=== PATIENT | female | born 1960 | race Caucasian/White ===

== ENCOUNTER → 2018-03-02 12:14 | Outpatient (CLI) | payer BC, SELFPAY ==
[2018-03-02 14:15] LABS: Hematocrit 40.3 % (37-47); Mean Corp Hgb Conc 34.7 g/gl (32-36); Mean Corpuscular Hgb 33.3 pg (27.0-32.0); Mean Corpuscular Volume 95.7 fL (81-99); Mean Platelet Vol. 10.3 fl (6.2-12.0); Platelet Count 218 K/mm3 (150-450); RBC Distribution Width CV 12.8 % (11.6-14.6); RBC Distribution Width SD 43.6 fl (35.1-43.9); Red Blood Count 4.21 M/mm3 (4.2-5.4); White Blood Count 4.9 K/mm3 (4.4-11.0)
[2018-03-02 14:19] LABS: Scan Indicated on CBC? Y/N NO
[2018-03-02 14:44] LABS: ALB/GLOB Ratio 1.1 RATIO (0.9-2.4); AST(SGOT) 23 U/L (15-37); Alanine Aminotransfer ALT/SGPT 23 U/L (13-56); Albumin, Serum 3.9 g/dL (3.2-5.0); Alkaline Phosphatase 89 U/L (45-117); Anion Gap 10 (5-15); BUN 10 mg/dL (7-18); BUN/Creat Ratio 11.1 RATIO (10-20); Calcium,Total 8.6 mg/dL (8.5-10.1); Chloride 108 mmol/L (98-107); EST Glomerular Filtration Rate 69 mL/min (>60); Est Glom Filt Rate - Afr Amer 83 mL/min (>60); Globulin 3.7 g/dL (2.2-4.2); Glucose 101 mg/dL (74-106); Luteinizing Hormone 25.6 mIU/mL; Potassium 3.1 mmol/L (3.5-5.1); Protein, Total 7.6 g/dL (6.4-8.2); Sodium Level 142 mmol/L (136-145); Thyroid Stim Hormone (TSH) 1.09 uIU/mL (0.358-3.74)
[2018-03-03 08:50] LABS: Vitamin B12 1747 pg/mL (211-911); Vitamin D,25 Hydroxy 45.3 ng/mL (29.95-100.01)
== END ==
PROVIDERS: Family Provider Family Medicine; PCP Family Medicine; Visit Provider Family Medicine
DX: G47.10 Hypersomnia, unspecified (principal)
CPT/HCPCS: 36415; 80053; 82306; 82607; 83001; 83002; 84443; 85027

== ENCOUNTER → 2018-03-23 14:11 | Outpatient (CLI) | payer BC, SELFPAY ==
[2018-03-23 15:59] LABS: Potassium 4.2 mmol/L (3.5-5.1)
== END ==
PROVIDERS: Family Provider Family Medicine; PCP Family Medicine; Visit Provider Family Medicine
DX: E87.6 Hypokalemia (principal)
CPT/HCPCS: 36415; 84132

== ENCOUNTER → 2018-07-06 11:44 | Outpatient (CLI) | payer BC, SELFPAY ==
[2018-07-06 14:09] LABS: Anion Gap 8 (5-15); BUN 15 mg/dL (7-18); BUN/Creat Ratio 15.8 RATIO (10-20); Calcium,Total 8.9 mg/dL (8.5-10.1); Chloride 103 mmol/L (98-107); Creatinine, Serum 0.95 mg/dL (0.55-1.02); EST Glomerular Filtration Rate 65 mL/min (>60); Est Glom Filt Rate - Afr Amer 78 mL/min (>60); Glucose 88 mg/dL (74-106); Potassium 4.4 mmol/L (3.5-5.1); Sodium Level 142 mmol/L (136-145)
== END ==
PROVIDERS: Family Provider Family Medicine; PCP Family Medicine; Visit Provider Family Medicine
DX: I10 Essential (primary) hypertension (principal)
CPT/HCPCS: 36415; 80048

== ENCOUNTER → 2019-03-07 | Outpatient (CLI) | payer BC, SELFPAY ==
--- NOTE | 2019-03-07 14:27 | RAD_ITS ---
STUDY: X-RAY - LUMBAR SPINE REASON FOR EXAM: Female, 58 years old. Back pain into the left leg TECHNIQUE: 5 view(s) of the lumbar spine were obtained. COMPARISON: FINDINGS: Normal lumbar lordosis. There is no substantial scoliosis. There is a normal alignment of the vertebrae. There is diffuse demineralization with multi-level endplate spondylosis. There is multi-level degenerative disc disease with multi-level disc space narrowing at L1-2 level, L5-S1 level. There is minimal posterior spurring L4-5, L5-S1, facet arthropathy and neural foraminal narrowing L4-5. There is atherosclerotic calcification of the abdominal aorta without a demonstrated aneurysm. RAD/L/S Spine Min 4 Views IMPRESSION: Degenerative changes, osteopenia, neuroforamina narrowing L4-5, arterial sclerosis and facet arthropathy not significantly changed. Electronically Signed: Sally Davies MD at 4:50 EDT , Service support ,
== END | disposition home or self-care (01) ==
LOC: MTLAB 14:23
PROVIDERS: Family Provider Family Medicine; PCP Family Medicine; Referring Provider Family Medicine; Visit Provider Family Medicine
DX: M54.5 Low back pain (principal)
CPT/HCPCS: 72110

== ENCOUNTER → 2019-03-22 | Outpatient (CLI) | payer BC, SELFPAY ==
--- NOTE | 2019-03-22 09:49 | RDU_ITS ---
Reason For Study: HTN Right Renal Artery Left Renal Artery Right renal artery ostium Left renal artery ostium 125.5/31.2 124.6/25.9 RSV/EDV. PSV/EDV. Right renal artery proximal Left renal artery proximal PSV/EDV 112.4/29.0 PSV/EDV. 140.6/45.5 . Right renal artery mid 130.0/33.4 Left renal artery mid 136.5/42.1 PSV/EDV. PSV/EDV . Right renal artery distal Left renal artery distal 114.4/26.7 105.7/33.3 PSV/EDV. PSV/EDV. Right RAR 1.4. Left RAR 1.5. Right Renal Parenchyma Left Renal Parenchyma Upper Pole Medula 38.6/14.5 Left upper pole medulla 34.2/11.2 PSV/EDV. PSV/EDV . Right upper pole medulla EDR .38 . Left upper pole medulla EDR .33 . Right upper pole medulla R.I. .62 . Left upper pole medulla R.I. .67 . Upper Baldo Cortx 25.4/9.0 PSV/EDV. UP Cortex 30.9/12.3 PSV/EDV. Right upper pole cortex EDR .35 . Left upper pole cortex EDR .4 . Right upper pole cortex R.I. .65 . Left upper pole cortex R.I. .6 . Right lower Pole medulla 41.9/14.5 Left lower Pole medulla 37.5/13.4 PSV/EDV . PSV/EDV . Right lower pole medulla EDR .35 . Left lower pole medulla EDR .36 . Right lower pole medulla R.I. .65 . Left lower pole medulla R.I. .64 . Lower Pole Cortex 26.5/9.0 PSV/EDV. Lower Pole Cortx 35.3/10.1 PSV/EDV. Right lower pole cortex EDR .34 . Left lower pole cortex EDR .29 . Right lower pole cortex R.I. .66 . Left lower pole cortex R.I. .71 . Right Renal Hilar Left Renal Hilar Right hilar acceleration time 40 Left hilar acceleration time 60 m/sec. m/sec. Right Hilar avg 51.7/14.5 PSV/EDV. LT Hilar avg 45.2/17.8 PSV/EDV . Right Renal Dimensions Left Renal Dimensions Right kidney size 10.9 cm . Left kidney size 10.4 cm . Right cortical dimension 1.65 cm . Left cortical dimension 1.74 cm . Aorta Proximal abdominal aorta 2.37 x 2.16 cm . Proximal abdominal aorta peak systolic velocity is 93.5 cm/sec . Distal abdominal aorta 1.55 x 1.48 cm . Distal abdominal aorta peak systolic velocity is 111.8 cm/sec . Normal renal veins bilat. Interpretation Summary Dimensions of the intra-abdominal aorta appear normal, without evidence of aneurysmal dilatation. Renal artery velocities are bilaterally normal. Acceleration times are normal bilaterally. Renal- aortic ratios are also bilaterally normal. There is no evidence of hemodynamically significant renal artery stenosis on either side. Renovascular resistance appears to be bilaterally normal . The right cortical dimension is increased. The left cortical dimension is increased. Kidneys appear normal in size bilaterally. Ordering Physician: Juan Luis Cheung Performed By: Kelvin Mosqueda RVT
== END | disposition home or self-care (01) ==
PROVIDERS: Family Provider Family Medicine; PCP Family Medicine; Referring Provider Family Medicine; Visit Provider Family Medicine
DX: I10 Essential (primary) hypertension (principal)
CPT/HCPCS: 93975

== ENCOUNTER → 2019-06-11 | Outpatient (CLI) | payer BC, SELFPAY ==
[2019-06-11 13:56] LABS: Absolute Lymphocyte Count 1.57 X10^3/uL (0.83-4.51); Absolute Neutrophil Count 2.2 X10^3/uL (2.0-7.7); Basophil# 0.02 X10^3/uL; Basophil% 0.4 % (0-1); Eosinophil# 0.24 X10^3/uL; Eosinophils% 5.3 % (0-5); Hematocrit 41.3 % (37-47); Hemoglobin 14.7 g/dL (12.0-15.0); Lymphocyte # 1.57 X10^3/ul (4.0); Lymphocyte % 34.9 % (19-41); Mean Corp Hgb Conc 35.6 g/dL (32-36); Mean Corpuscular Hgb 33.8 pg (27.0-32.0); Mean Corpuscular Volume 94.9 fL (81-99); Mean Platelet Vol. 10.3 fl (6.2-12.0); Monocyte# 0.42 X10^3/uL; Monocyte% 9.3 % (0-10); NRBC Flagged by Analyzer 0 % (0-5); Neutrophil # 2.24 X10^3/uL (2.7-7.7); Neutrophil % 49.9 % (47-70); Platelet Count 256 K/mm3 (150-450); RBC Distribution Width CV 12.6 % (11.6-14.6); RBC Distribution Width SD 43.9 fl (35.1-43.9); Red Blood Count 4.35 M/mm3 (4.2-5.4); White Blood Count 4.5 K/mm3 (4.4-11.0)
[2019-06-11 14:04] LABS: Erythrocyte Sedimentation Rate 6 mm/hr (0-30)
[2019-06-11 14:18] LABS: Vitamin B12 969 pg/mL (211-911)
[2019-06-11 14:24] LABS: AST(SGOT) 19 U/L (15-37); Alanine Aminotransfer ALT/SGPT 24 U/L (13-56); Albumin, Serum 3.7 g/dL (3.2-5.0); Alkaline Phosphatase 86 U/L (45-117); Anion Gap 7 (5-15); BUN 15 mg/dL (7-18); Calcium,Total 8.6 mg/dL (8.5-10.1); Chloride 106 mmol/L (98-107); Creatinine, Serum 0.83 mg/dL (0.55-1.02); EST Glomerular Filtration Rate 75 mL/min (>60); Est Glom Filt Rate - Afr Amer 90 mL/min (>60); Globulin 3.8 g/dL (2.2-4.2); Glucose 90 mg/dL (74-106); Iron 147 ug/dL (50-170); Potassium 3.5 mmol/L (3.5-5.1); Protein, Total 7.5 g/dL (6.4-8.2); Sodium Level 143 mmol/L (136-145); Thyroid Stim Hormone (TSH) 1.99 uIU/mL (0.358-3.74)
== END | disposition home or self-care (01) ==
LOC: MFPLAB 11:57
PROVIDERS: Family Provider Family Medicine; PCP Family Medicine; Visit Provider Family Medicine
DX: R53.83 Other fatigue (principal)
CPT/HCPCS: 36415; 80053; 82306; 82607; 83540; 84443; 85025; 85652

== ENCOUNTER → 2020-06-16 15:55 | Outpatient (CLI) | payer OTHER, SELFPAY ==
--- NOTE | 2020-06-16 16:03 | VDLE_ITS ---
Reason For Study: Contusion RIGHT LEFT CFV is compressible, spontaneous, phasic, GSV is normal. competent and demonstrates normal CFV is compressible, spontaneous, phasic, augmentation. competent, and demonstrates normal Procedure augmentation. Exam performed in department. FV is compressible, spontaneous, phasic, A preliminary report was called and/or faxed competent and demonstrates normal to Chet. Send Pt to ED for treatment. augmentation. POP V is compressible, spontaneous, phasic, competent and demonstrates normal augmentation. T/P Trunk is compressible. PTV is compressible. LT PerV is compressible. Acute deep vein thrombosis is noted in the left soleus vein. Interpretation Summary Acute deep vein thrombosis is noted in the left soleus vein. The remainder of the left lower extremity deep venous system is patent and compressible. Valvular competence appears intact within the proximal deep venous system on the left . The left great saphenous vein appears patent and compressible segmentally. Ordering Physician: Justin Rosenberg Referring Physician: Juan Luis Cheung MD Performed By: Kelsey Mas RVT and Student
== END ==
PROVIDERS: PCP Family Medicine; Referring Provider Family Medicine; Visit Provider Family Medicine
DX: S80.11XA Contusion of right lower leg, initial encounter (principal)
CPT/HCPCS: 93971

== ENCOUNTER 2020-06-16 16:40 | Emergency (ER) | payer OTHER, BC, SELFPAY ==
[2020-06-16 16:42] VITALS: BP 244/81; PULSE 57; RESP 18; TEMP 36.2; O2SAT 97; BMI 34.1
--- NOTE | 2020-06-16 18:36 | RAD_ITS ---
STUDY: X-RAY - LEFT TIBIA AND FIBULA REASON FOR EXAM: Female, 59 years old. Wall 1 week ago. Bruising and pain. TECHNIQUE: 2 view(s) of the tibia and fibula were obtained. COMPARISON: Left ankle, 06/16/2020. FINDINGS: Normal visualized tibia. Normal visualized fibula. There is no acute fracture, dislocation or destructive osseous pathology. The knee and ankle are unremarkable. The soft tissue structures are unremarkable. RAD/Tibia & Fibula 2 Views IMPRESSION: Normal x-ray examination of the tibia and fibula. Electronically Signed: Johnnie Madrid DO at 19:05 EDT Tel [phone], Service support ,
--- NOTE | 2020-06-16 18:45 | RAD_ITS ---
STUDY: X-RAY - LEFT ANKLE REASON FOR EXAM: Female, 59 years old. GUERRERO and pain. TECHNIQUE: 3 view(s) of the ankle. COMPARISON: None. FINDINGS: Normal visualized distal tibia and fibula. Normal medial and lateral malleoli. Normal tibiotalar articulation and ankle mortise. Normal visualized talus and calcaneus. The visualized subtalar, talonavicular, calcaneocuboid and tarsal articulations are normal. The soft tissue structures are unremarkable. RAD/Ankle min 3 Views IMPRESSION: No acute fracture or dislocation. Electronically Signed: Johnnie Madrid DO at 19:05 EDT Tel [phone], Service support ,
--- NOTE | 2020-06-16 18:58 | ED.DCSUM_ITS ---
History of Present Illness Chief Complaint: Other, Pain/Inj Informant: Patient Narrative: Patient is a 59-year-old female who presents to the emergency department after testing positive for a DVT in the left leg. He states that she had a fall last Tuesday with her legs bent behind her. She has been having pain in the left side since. The leg has been slightly swollen. She denies any history of DVT but she does have family history of blood clots. She is not on any anticoagulation. He states that ambulating does make the symptoms worse. Touching the calf does bother her as well. She has not had any chest pain, shortness of breath. No cough, cold, congestion. No fevers or chills. There has been an ecchymosis of bilateral ankles. She states that she did have some imaging of the right side which did not reveal any fractures. She states that they have not done any imaging of the left side yet. She denies any abdominal pain or nausea/vomiting. Past Medical History - Allergies and Home Meds Allergies/Adverse Reactions: Allergies paroxetine [From Paxil] Allergy (Verified 06/16/20 16:45) Unknown Tetracyclines Allergy (Verified 06/16/20 16:45) Unknown Primary Care Physician: Van Cheung MD [Primary Care Provider] - 2 Days Prior records reviewed: Yes Past Medical History: - - Hypertension Smoking Status: Former smoker Review of Systems All systems negative except as indicated General: Denies: Chills, Fever, Sweats Eyes: Denies: Visual changes - bilaterally, Diplopia ENT: Denies: Rhinorrhea, Sore throat Cardiovascular: Denies: Chest pain, Palpitations Respiratory: Denies: Dyspnea, Cough, Dyspnea on exertion Gastrointestinal: Denies: Abdominal pain, Nausea, Vomiting, Diarrhea Genitourinary: Denies: Dysuria, Hematuria, Frequency Musculoskeletal: Reports: Swelling, Extremity Pain. Denies: Back pain Skin: Denies: Rash, Wounds Neurological: Reports: Headache. Denies: Weakness, Numbness Physical Exam Vital Signs/Narrative: Vital Signs Temp Pulse Resp BP Pulse Ox 06/16/20 16:42 97.1 F L 57 L 18 244/81 H 97 Inital Vital Signs reviewed: Yes General: Well nourished, Well developed, No Acute Distress Head: Normocephalic, Atraumatic Eyes: Perrl, EOMI ENT: Moist mucous membranes, No rhinorrhea Neck: Supple, Nontender Cardiovascular: Regular rate, Regular rhythm, No murmurs Respiratory: No distress, CTA bilaterally, Chest nontender Abdomen: Soft, Nontender, Nondistended, Normal bowel sounds Back: Nontender, Normal Inspection Extremities: Edema - Trace of left lower extremity, positive Homans sign. There is surrounding ecchymosis of the left and right ankle., Calf Tenderness Skin: Normal color, No rash Neurological: Alert, Oriented x3, Cranial nerves II-XII grossly intact, Normal Strength, Normal Sensation Psychological: Normal affect, Normal Mood Diagnostic/Tx/Re-eval - Medical Decision Making Patient presents the emergency department after a DVT was noted in the left soleus vein. She is having significant tenderness to the ankle as well as the calf so we will obtain x-rays. We will start her on anticoagulation. X-rays obtained which did not reveal any acute osseous abnormality. We will start her on Eliquis in the emergency department and give her a prescription for outpatient management. Bleeding risks were discussed with the patient and she understands being on this medication. He is to follow-up with her PCP for continued management of this and the blood clot. At this time will discharge home in stable condition. Warning signs and symptoms for which to return to the emergency department including any significant chest pain or shortness of breath are reviewed. She understands and is agreeable with this plan. ED Disposition - Plan for ED Patient: Disposition: Home or Assisted Living Diagnosis: DVT (deep venous thrombosis) Instructions: ED DVT Prescriptions: Apixaban [Eliquis] 5 mg PO BID #74 tab Transmission Status: Received by SWATHI [id number] [facility] Referrals: Van Cheung MD [Primary Care Provider] - 2 Days
[2020-06-16 19:36] VITALS: BP 128/74; PULSE 71; RESP 18; O2SAT 99
[2020-06-16] MEDS: APIXABAN 5 MG TABLET 10 MG PO (19:38)
== END 2020-06-16 19:39 | disposition home or self-care (01) ==
PROVIDERS: Emergency Provider Emergency Medicine; PCP Family Medicine
DX: I82.462 Acute embolism and thrombosis of left calf muscular vein (principal); S80.11XA Contusion of right lower leg, initial encounter; S90.02XA Contusion of left ankle, initial encounter; S90.01XA Contusion of right ankle, initial encounter; W19.XXXA Unspecified fall, initial encounter; Y93.9 Activity, unspecified; Y92.9 Unspecified place or not applicable; Y99.9 Unspecified external cause status; I10 Essential (primary) hypertension; Z79.899 Other long term (current) drug therapy; Z87.891 Personal history of nicotine dependence
CPT/HCPCS: 73590; 73610; 93971; 99283

== ENCOUNTER → 2020-07-21 09:43 | Outpatient (CLI) | payer OTHER, SELFPAY ==
--- NOTE | 2020-07-21 09:50 | VDLE_ITS ---
Reason For Study: DVT LLE Procedure LEFT Exam performed in department. GSV is normal. The exam was abbreviated due to the COVID 19 CFV is compressible, spontaneous, phasic, protocol. competent, and demonstrates normal The exam was diagnostic. augmentation. A preliminary report was called and/or faxed FV is compressible, spontaneous, phasic, to Dr. Rosenberg. competent and demonstrates normal augmentation. POP V is compressible, spontaneous, phasic, competent and demonstrates normal augmentation. T/P Trunk is compressible. PTV is compressible. LT PerV is compressible. Soleus vein is now compressible. Interpretation Summary Deep veins of the left lower extremity are patent and compressible segmentally. There is no evidence of left lower extremity deep vein thrombosis. Valvular competence appears intact within the proximal deep venous system on the left . The left great saphenous vein appears patent and compressible segmentally. There appears to be resolution of the acute deep vein thrombosis previously noted in the left soleus vein in a prior study on 06/16/2020. Ordering Physician: Justin Rosenberg Performed By: Kelvin Mosqueda RVT
== END ==
PROVIDERS: PCP Family Medicine; Referring Provider Family Medicine; Visit Provider Family Medicine
DX: I82.492 Acute embolism and thrombosis of other specified deep vein of left lower extremity (principal)
CPT/HCPCS: 93971

== ENCOUNTER → 2020-10-28 15:52 | Outpatient (CLI) | payer BC, SELFPAY ==
[2020-10-28 17:49] LABS: Hematocrit 40.7 % (37-47); Hemoglobin 13.7 g/dL (12.0-15.0); Mean Corp Hgb Conc 33.7 g/dL (32-36); Mean Corpuscular Hgb 32.1 pg (27.0-32.0); Mean Corpuscular Volume 95.3 fL (81-99); Platelet Count 241 K/mm3 (150-450); RBC Distribution Width CV 12.3 % (11.6-14.6); RBC Distribution Width SD 42.7 fl (35.1-43.9); Red Blood Count 4.27 M/mm3 (4.2-5.4); White Blood Count 6.1 K/mm3 (4.4-11.0)
[2020-10-28 18:24] LABS: Vitamin D,25 Hydroxy 24.3 ng/mL
[2020-10-28 18:30] LABS: AST(SGOT) 26 U/L (15-37); Alanine Aminotransfer ALT/SGPT 26 U/L (13-56); Albumin, Serum 3.8 g/dL (3.2-5.0); Alkaline Phosphatase 80 U/L (45-117); Anion Gap 9 (5-15); BUN 11 mg/dL (7-18); BUN/Creat Ratio 10.6 RATIO (10-20); Calcium,Total 8.5 mg/dL (8.5-10.1); Chloride 104 mmol/L (98-107); Cholesterol 190 mg/dL (200); Creatinine, Serum 1.04 mg/dL (0.55-1.02); EST Glomerular Filtration Rate 58 mL/min (>60); Est Glom Filt Rate - Afr Amer 70 mL/min (>60); Globulin 3.7 g/dL (2.2-4.2); Glucose 80 mg/dL (74-106); High Density Lipoprotein 53 mg/dL; Potassium 3.6 mmol/L (3.5-5.1); Protein, Total 7.5 g/dL (6.4-8.2); Sodium Level 138 mmol/L (136-145); Thyroid Stim Hormone (TSH) 1.09 uIU/mL (0.358-3.74); Triglycerides 134 mg/dL; Very Low Density Lipoprotein 27 mg/dL (5-40)
== END ==
PROVIDERS: PCP Family Medicine; Referring Provider Family Medicine; Visit Provider Family Medicine
DX: R42 Dizziness and giddiness (principal); I10 Essential (primary) hypertension; K21.9 Gastro-esophageal reflux disease without esophagitis
CPT/HCPCS: 36415; 80048; 80061; 80076; 82306; 84443; 85027

== ENCOUNTER 2020-11-24 15:50 | Emergency (ER) | payer OTHER, SELFPAY ==
[2020-11-24 15:51] VITALS: BP 167/122; PULSE 64; RESP 18; TEMP 35.8; O2SAT 94; BMI 33.9
[2020-11-24 16:02] VITALS: O2SAT 99
--- NOTE | 2020-11-24 16:07 | ED.DCSUM_ITS ---
History of Present Illness Chief Complaint: Fall Informant: Patient Narrative: Patient is a 60-year-old female with a past medical history of hypertension who presents emerged part for left-sided chest wall pain. She fell 20 minutes prior to arrival landing on her left side. She states that she was walking down the curb when she lost her balance and slipped. She did get a scrape to her left hand but denies any significant injury to the hand. She denies hitting her head or losing consciousness. She is not on blood thinning medications. She denies any other injury. She has not tried taking thing for this. Movement and deep breaths does make her pain worse. She has been started to feel short of breath which made her come into the ED. Past Medical History - Allergies and Home Meds Allergies/Adverse Reactions: Allergies morphine Allergy (Verified 11/24/20 15:53) Itching paroxetine [From Paxil] Allergy (Verified 11/24/20 15:52) Unknown Tetracyclines Allergy (Verified 11/24/20 15:52) Unknown Primary Care Physician: Van Cheung MD [Primary Care Provider] - 3-5 Days Prior records reviewed: Yes Past Medical History: - - Hypertension Smoking Status: Never smoker Review of Systems All systems negative except as indicated General: Denies: Chills, Fever, Sweats Eyes: Denies: Visual changes - bilaterally, Diplopia ENT: Denies: Rhinorrhea, Sore throat Cardiovascular: Reports: Chest pain - Left anterior chest wall. Denies: Palpitations Respiratory: Denies: Dyspnea, Cough, Dyspnea on exertion Gastrointestinal: Denies: Abdominal pain, Nausea, Vomiting, Diarrhea Musculoskeletal: Denies: Neck pain, Back pain, Extremity Pain Skin: Reports: Wounds - Left hand abrasion. Denies: Rash Neurological: Denies: Headache, Weakness, Numbness Hematologic: Denies: Easy bruising, Easy bleeding Physical Exam Vital Signs/Narrative: Vital Signs Temp Pulse Resp BP Pulse Ox 11/24/20 16:02 99 11/24/20 15:51 96.5 F L 64 18 167/122 H 94 Inital Vital Signs reviewed: Yes General: Well nourished, Well developed, No Acute Distress Head: Normocephalic, Atraumatic Eyes: Perrl, EOMI ENT: Moist mucous membranes, No rhinorrhea Neck: Supple, Nontender Cardiovascular: Regular rate, Regular rhythm, No murmurs, - - No external evidence of trauma on the chest wall. No crepitus. Respiratory: No distress, CTA bilaterally, Chest nontender Abdomen: Soft, Nontender, Nondistended, Normal bowel sounds Back: Nontender, Normal Inspection. Negative for: Spinal tenderness Extremities: Nontender, No edema Skin: Normal color, No rash Neurological: Alert, Oriented x3, Cranial nerves II-XII grossly intact, Normal Strength, Normal Sensation Psychological: Normal affect, Normal Mood Diagnostic/Tx/Re-eval Chest X-Ray - ED: - - 2 view x-ray interpreted by myself. Clear lung robles bilaterally. No evidence of rib fractures. No pneumothorax. No pleural effusions. Agree with radiologist interpretation. - Medical Decision Making Patient presents to the emergency department after slipping and hitting the left side of her chest wall on a curb. She denies any other significant injury. Will treat symptomatically and check a chest x-ray to evaluate for rib fractures versus pneumothorax. She does have clear lung sounds bilaterally. She has no apparent distress. Vital signs within normal limits except for mild hypertension. X-ray did not reveal any acute traumatic findings. She has been stable throughout ED stay. Will discharge home in stable condition. She is to follow- up with her PCP. Strict return precautions were reviewed with her including any worsening chest pain or developing any significant shortness of breath. She understands and is agreeable this plan. Recommend symptomatic treatment otherwise. All questions answered. ED Disposition - Plan for ED Patient: Disposition: Home or Assisted Living Diagnosis: Contusion of chest Instructions: ED Chest Wall Contusion Referrals: Van Cheung MD [Primary Care Provider] - 3-5 Days
[2020-11-24] MEDS: HYDROcodone Bitartrate/Apap 5/325 Tablet PO (16:24)
--- NOTE | 2020-11-24 16:25 | RAD_ITS ---
STUDY: X-RAY CHEST REASON FOR EXAM: Female, 60 years old. FELL ON ANTERIOR LEFT CHEST TECHNIQUE: PA and lateral views of the chest. COMPARISON: 06/19/2015 FINDINGS: There is hyperinflation of the lungs consistent with chronic obstructive lung disease (COPD). There is no demonstrated pleural abnormality. Normal size heart. Normal mediastinum and jimmy. Normal visualized pulmonary arteries. Normal visualized aortic arch and descending thoracic aorta. Normal visualized thoracic spine. Normal visualized ribs, clavicles, and shoulders. There is no demonstrated abnormality of the visualized soft tissue structures of the upper abdomen. RAD/Chest PA and Lateral IMPRESSION: Emphysema without pneumonia or atelectasis. Electronically Signed: Navdeep Darby MD at 17:00 EST Tel , Service support ,
== END 2020-11-24 17:55 | disposition home or self-care (01) ==
PROVIDERS: Emergency Provider Emergency Medicine; PCP Family Medicine
DX: S20.212A Contusion of left front wall of thorax, initial encounter (principal); S60.512A Abrasion of left hand, initial encounter; W10.1XXA Fall (on)(from) sidewalk curb, initial encounter; Y93.01 Activity, walking, marching and hiking; Y92.9 Unspecified place or not applicable; Y99.9 Unspecified external cause status; J43.9 Emphysema, unspecified; I10 Essential (primary) hypertension; Z79.01 Long term (current) use of anticoagulants; Z79.899 Other long term (current) drug therapy
CPT/HCPCS: 71046; 99283

== ENCOUNTER → 2021-01-30 08:12 | Outpatient (CLI) | payer OTHER, SELFPAY ==
--- NOTE | 2021-01-30 08:35 | RAD_ITS ---
STUDY: X-RAY - ESOPHAGUS (BARIUM SWALLOW) WITH FLUOROSCOPY REASON FOR EXAM: Female, 60 years old. DYSPHAGIA TECHNIQUE: 16 fluoroscopic view(s) of the esophagus were obtained following swallowing of barium. FLUOROSCOPY TIME (if supplied): (0:36) minutes/seconds COMPARISON: None. FINDINGS: There is no demonstrated esophageal foreign body. There is no demonstrated stricture or mucosal abnormality. The patient is status post hiatal hernia repair. Persistent moderate-sized hiatal hernia. No evidence of reflux. The patient ingested a 12 mm tablet of barium without any difficulty. Normal visualized aortic arch and descending thoracic aorta. Normal visualized pulmonary parenchyma. Normal visualized osseous structures of the thorax. RAD/Esophagus Single Contrast IMPRESSION: Persistent moderate-sized hiatal hernia without gastroesophageal reflux. Electronically Signed: Aubrey Ludwig MD at 13:07 EDT , Service support ,
== END ==
PROVIDERS: PCP Family Medicine; Referring Provider Family Medicine; Visit Provider Family Medicine
DX: R13.10 Dysphagia, unspecified (principal)
CPT/HCPCS: 74220

== ENCOUNTER 2021-06-19 10:42 | Emergency (ER) | payer OTHER, SELFPAY ==
[2021-06-19 10:42] VITALS: BP 140/110; PULSE 108; RESP 20; TEMP 37.7; O2SAT 99; BMI 32.9
[2021-06-19 10:44] VITALS: BP 140/110; PULSE 108; RESP 20; TEMP 37.7; O2SAT 99
--- NOTE | 2021-06-19 11:02 | EX.ED.DYSGE1 ---
HPI History of Present Illness Chief Complaint: Fever Informant: patient Onset/Context/Timing Onset: Days (3) Context: Gradual Onset Timing: Continuous Quality: Aching Location: Generalized Worsened by: Nothing Relieved by: Nothing Narrative Narrative: Patient presents with nausea, fever, and chills that have been constant over the last 3 days. Patient states it is gradually gotten worse. Patient states she checked her temperature at home and it was 97.6. Patient admits to some subjective chills as well. Patient admits to general myalgias. Patient states she has aching all over. Patient states nothing makes it worse and nothing makes it better. [facility] Medical History (Updated 06/19/21 @ 13:[address] Barney Dockery DO) Hypertension Home Medications amlodipine 10 mg PO DAILY 06/16/20 [History Last Taken Unknown] bupropion HCl 300 mg PO DAILY 06/16/20 [History Last Taken Unknown] citalopram 40 mg PO DAILY 06/16/20 [History Last Taken Unknown] doxazosin 4 mg PO DAILY 06/16/20 [History Last Taken Unknown] losartan-hydrochlorothiazide 1 ea PO DAILY 06/16/20 [History Last Taken Unknown] metoprolol tartrate 100 mg PO BID 06/16/20 [History Last Taken Unknown] nabumetone 750 mg PO BID 06/16/20 [History Last Taken Unknown] omeprazole 20 mg PO DAILY 06/16/20 [History Last Taken Unknown] pregabalin 150 mg PO BID 06/16/20 [History Last Taken Unknown] cyclobenzaprine [Flexeril] 5 mg PO TID PRN 06/19/21 [History Last Taken Unknown] oxycodone-acetaminophen [Percocet] 1 tab PO Q6H PRN 06/19/21 [History Last Taken Unknown] promethazine 25 mg PO Q6H PRN PRN #10 tablet 06/19/21 [Rx Last Taken Unknown] Allergy/AdvReac Type Severity Reaction Status Date / Time morphine Allergy Itching Verified 06/19/21 10:44 paroxetine [From Paxil] Allergy Unknown Verified 06/19/21 10:44 Tetracyclines Allergy Unknown Verified 06/19/21 10:44 Surgical History (Updated 06/19/21 @ 11:[address] Barney Dockery DO) H/O section History of hysterectomy History of repair of hiatal hernia Hx of cholecystectomy Hx of tonsillectomy Social History Smoking Status: Never smoker ROS ROS ED Constitutional Constitutional ED: Reports chills, fever(s) and subjective Eyes Eyes: Denies blurry vision or change in vision ENT ENT ED: Denies rhinorrhea or sore throat Cardiovascular Cardiovascular: Denies chest pain or palpitations Respiratory/Chest Respiratory/Chest: Reports dyspnea; Denies cough Gastrointestinal Gastrointestinal: Reports nausea; Denies vomiting Genitourinary Genitourinary ED: Reports dysuria; Denies hematuria Musculoskeletal Musculoskeletal: Reports myalgias; Denies back pain or neck pain Integumentary Denies abscess or rash Neurologic Neurologic: Reports weakness; Denies headache(s) Allergic/Immunologic Allergic/Immunologic ED: Denies mouth swelling or urticaria EXAM Physical Exam Const Vital Signs: 06/19/21 10:42 06/19/21 10:44 06/19/21 11:38 Temperature 99.8 F H 99.8 F H Temperature Source Oral Oral Pulse Rate 108 H 108 H Respiratory Rate 20 H 20 H Respiratory Effort Normal Respiratory Pattern Normal Blood Pressure 140/110 H 140/110 H Blood Pressure Mean 120 120 Pulse Ox 99 99 Oxygen Delivery Method Room Air Room Air 06/19/21 12:27 06/19/21 13:08 06/19/21 13:46 Temperature 98.6 F 98.8 F 98 F Temperature Source Temporal Oral Oral Pulse Rate 109 H 101 H 100 Respiratory Rate 18 20 H 16 Respiratory Effort Respiratory Pattern Blood Pressure 113/84 H 107/75 108/83 H Blood Pressure Mean 93 85 91 Pulse Ox 98 93 96 Oxygen Delivery Method Room Air Room Air Room Air 06/19/21 14:40 Temperature Temperature Source Pulse Rate 94 Respiratory Rate 14 Respiratory Effort Respiratory Pattern Blood Pressure 101/60 Blood Pressure Mean Pulse Ox 96 Oxygen Delivery Method Positive well nourished and well developed General Appearance ED: well developed HEENT Reports moist mucous membranes Neck supple and no JVD Resp normal respiratory effort and clear to auscultation bilaterally Cardio regular rate, regular rhythm and no murmurs GI normal to inspection, nondistended, normoactive bowel sounds and non-tender Palpation: soft Extremity normal to inspection General Extremety ED: Negative for edema or tenderness General Extremity: Negative for edema Neuro oriented x3, CN's II-XII intact bilaterally and no sensory deficits noted Sensorium / Orientation: alert Motor Exam: strength 5/5 throughout Psych mental status grossly normal MDM MDM MDM Narrative Medical decision making narrative: Patient was given IV fluids and Tylenol here. Patient was also given albuterol inhaler. CBC was within normal limits. Comprehensive metabolic profile showed a mild hypokalemia of 3.0. Lactate was elevated at 3.0. Urinalysis does not show any evidence of urinary tract infection. Portable 1 view chest x-ray was obtained. On my interpretation, lung robles are clear. There is normal cardiac silhouette. Bony thorax is normal. There is no acute process noted. Radiologist also interpreted the x-ray and agrees. COVID-19 rapid antigen was obtained and was negative. Influenza swabs were negative. Patient is feeling somewhat better on reevaluation. Patient was given another 500 cc bolus of normal saline. Patient was instructed drink plenty of fluids. Patient was also given a dose of oral potassium here. Patient was instructed to follow-up with her primary care physician in 3 to 5 days. Patient was instructed return if worse in any way. Patient understood and was agreeable with the plan. All questions were answered. Lab Data Attestation: I reviewed the patient's lab results. Labs: Laboratory Results - last 24 hr 06/19/21 06/19/21 06/19/21 11:15 11:15 11:15 WBC 7.8 RBC 5.19 Hgb 16.5 H Hct 46.9 MCV 90.4 MCH 31.8 MCHC 35.2 RDW Std Deviation 42.1 RDW Coeff of Kehinde 12.8 Plt Count 295 MPV 9.7 Immature Gran % (Auto) 0.300 Neut % (Auto) 77.7 H Lymph % (Auto) 14.8 L [place] % (Auto) 6.4 Eos % (Auto) 0.5 Baso % (Auto) 0.3 Absolute Neuts (auto) 6.1 Absolute Lymphs (auto) 1.15 Nucleated RBC % 0 Sodium 140 Potassium 3.0 L Chloride 107 Carbon Dioxide 21.0 Anion Gap 12 BUN 10 Creatinine 1.03 H Estim Creat Clear Calc 52.92 Est GFR (MDRD) Af Amer 70 Est GFR (MDRD) Non-Af 58 L BUN/Creatinine Ratio 9.7 L Glucose 153 H Lactic Acid 3.0 H* Calcium 9.8 Total Bilirubin 0.60 AST 37 ALT 34 Alkaline Phosphatase 138 H Total Protein 9.3 H Albumin 4.2 Globulin 5.1 H Albumin/Globulin Ratio 0.8 L Urine Color Urine Clarity Urine pH Ur Specific [place] Urine Protein Urine Glucose (UA) Urine Ketones Urine Occult Blood Urine Nitrite Urine Bilirubin Urine Urobilinogen Ur Leukocyte Esterase Urine RBC Urine WBC Ur Squamous Epith Cells Urine Bacteria Urine Mucus 06/19/21 12:25 WBC RBC Hgb Hct MCV MCH MCHC RDW Std Deviation RDW Coeff of Kehinde Plt Count MPV Immature Gran % (Auto) Neut % (Auto) Lymph % (Auto) [place] % (Auto) Eos % (Auto) Baso % (Auto) Absolute Neuts (auto) Absolute Lymphs (auto) Nucleated RBC % Sodium Potassium Chloride Carbon Dioxide Anion Gap BUN Creatinine Estim Creat Clear Calc Est GFR (MDRD) Af Amer Est GFR (MDRD) Non-Af BUN/Creatinine Ratio Glucose Lactic Acid Calcium Total Bilirubin AST ALT Alkaline Phosphatase Total Protein Albumin Globulin Albumin/Globulin Ratio Urine Color Yellow Urine Clarity Clear Urine pH 6.5 Ur Specific [place] 1.020 Urine Protein 30 H Urine Glucose (UA) 50 H Urine Ketones 5 H Urine Occult Blood 150 H Urine Nitrite Negative Urine Bilirubin Negative Urine Urobilinogen Normal Ur Leukocyte Esterase 25 H Urine RBC 0-5 SEEN Urine WBC 0-5 SEEN Ur Squamous Epith Cells 0-5 SEEN Urine Bacteria 0 SEEN Urine Mucus 0 SEEN Radiography Chest X-Ray - ED: 1 View, Read by ED Physician, Read by Radiologist and Normal Diagnostic Testing: Radiology Impression Chest X-Ray 06/19/21 11:45 IMPRESSION: No acute abnormality is seen. Electronically Signed: Aubrey Ludwig MD at 12:02 EDT , Service support , Discharge Plan Triage Chief Complaint: Fever ED Provider: Barney Dockery Dx/Rx/DC Orders Clinical Impression: Viral illness Instructions: ED Viral Syndrome (Adult) Prescriptions: New promethazine [promethazine] 25 MG tablet 25 mg PO Q6H PRN PRN (Reason: Nausea) Qty: 10 RF: 0 No Action nabumetone 750 MG tablet 750 mg PO BID RF: 0 citalopram 40 mg tablet 40 mg PO DAILY RF: 0 metoprolol tartrate 100 MG tablet 100 mg PO BID RF: 0 amlodipine 10 MG tablet 10 mg PO DAILY RF: 0 omeprazole 20 MG capsule 20 mg PO DAILY RF: 0 bupropion HCl 300 MG tablet extended release 24 hr 300 mg PO DAILY RF: 0 doxazosin 4 MG tablet extended release 24hr 4 mg PO DAILY RF: 0 pregabalin 150 MG capsule 150 mg PO BID RF: 0 losartan-hydrochlorothiazide 1 EACH tablet 1 ea PO DAILY RF: 0 oxycodone-acetaminophen [Percocet] 5-325 mg Tablet 1 tab PO Q6H PRN (Reason: spasms) RF: 0 cyclobenzaprine [Flexeril] 5 mg Tablet 5 mg PO TID PRN (Reason: Pain) RF: 0 Primary Care Provider: Van Cheung Referrals: Van Cheung MD [Primary Care Provider] - 3-5 Days Disposition Disposition: Home, Self Care Discharge Date/Time: 06/19/21 14:41
[2021-06-19] MEDS: Acetaminophen 500 MG Tablet 1000 MG PO (11:28)
[2021-06-19 11:30] LABS: Absolute Lymphocyte Count 1.15 X10^3/uL (0.83-4.51); Absolute Neutrophil Count 6.1 X10^3/uL (2.0-7.7); Basophil# 0.02 X10^3/uL; Basophil% 0.3 % (0-1); Eosinophil# 0.04 X10^3/uL; Eosinophils% 0.5 % (0-5); Hematocrit 46.9 % (37-47); Hemoglobin 16.5 g/dL (12.0-15.0); Lymphocyte # 1.15 X10^3/ul (0.83-4.51); Lymphocyte % 14.8 % (19-41); Mean Corp Hgb Conc 35.2 g/dL (32-36); Mean Corpuscular Hgb 31.8 pg (27.0-32.0); Mean Corpuscular Volume 90.4 fL (81-99); Mean Platelet Vol. 9.7 fl (6.2-12.0); Monocyte% 6.4 % (0-10); NRBC Flagged by Analyzer 0 % (0-5); Neutrophil # 6.05 X10^3/uL (2.7-7.7); Neutrophil % 77.7 % (47-70); Platelet Count 295 K/mm3 (150-450); RBC Distribution Width CV 12.8 % (11.6-14.6); RBC Distribution Width SD 42.1 fl (35.1-43.9); Red Blood Count 5.19 M/mm3 (4.2-5.4); White Blood Count 7.8 K/mm3 (4.4-11.0)
[2021-06-19 11:40] LABS: ALB/GLOB Ratio 0.8 RATIO (0.9-2.4); AST(SGOT) 37 U/L (15-37); Alanine Aminotransfer ALT/SGPT 34 U/L (13-56); Albumin, Serum 4.2 g/dL (3.2-5.0); Alkaline Phosphatase 138 U/L (45-117); Anion Gap 12 (5-15); BUN 10 mg/dL (7-18); BUN/Creat Ratio 9.7 RATIO (10-20); Calcium,Total 9.8 mg/dL (8.5-10.1); Chloride 107 mmol/L (98-107); Creatinine, Serum 1.03 mg/dL (0.55-1.02); EST Glomerular Filtration Rate 58 mL/min (>60); Est Glom Filt Rate - Afr Amer 70 mL/min (>60); Estimated Creatinine Clearance 52.92 ml/min; Globulin 5.1 g/dL (2.2-4.2); Glucose 153 mg/dL (74-106); Protein, Total 9.3 g/dL (6.4-8.2); Sodium Level 140 mmol/L (136-145)
--- NOTE | 2021-06-19 11:45 | RAD_ITS ---
STUDY: X-RAY CHEST REASON FOR EXAM: Female, 60 years old. Cough TECHNIQUE: Single AP portable view of the chest. COMPARISON: Comparison is made with prior study dated 11/24/2020. FINDINGS: EKG electrodes are seen. There is elevation of the right hemidiaphragm. There is no demonstrated pleural abnormality. Normal size heart. Normal mediastinum and jimmy. Normal visualized pulmonary arteries. There is atherosclerotic calcification of the aortic arch with tortuosity. Normal visualized thoracic spine. Normal visualized ribs, clavicles, and shoulders. Hiatal hernia. RAD/Chest 1 View (Portable) IMPRESSION: No acute abnormality is seen. Electronically Signed: Aubrey Ludwig MD at 12:02 EDT , Service support ,
[2021-06-19 12:27] VITALS: BP 113/84; PULSE 109; RESP 18; TEMP 37; O2SAT 98
[2021-06-19 12:29] LABS: Bacteria 0 SEEN /hpf (None Seen); Mucous, Urine 0 SEEN /hpf (<or=2+)
[2021-06-19 12:31] LABS: Color, Urine Yellow (Yellow); Glucose, Dipstick 50 mg/dl (Normal); Ketone-Dipstick 5 mg/dl (Negative); Leukocyte Esterase-Dipstick 25 /ul (Negative); Nitrite-Dipstick Negative (Negative); Occult Blood-Urine 150 /ul (Negative); Protein-Dipstick 30 mg/dl (Negative); Urine Bilirubin Dipstick Negative (Negative); Urine Clarity Clear (Clear); Urine Urobilinogen Normal (Normal); Urine pH 6.5 (5.0 - 8.0)
[2021-06-19 12:40] LABS: Red Blood Cells-Urine 0-5 SEEN /hpf (0-5); Squamous Epithelial Cells - UA 0-5 SEEN /hpf (5-10); White Blood Cells 0-5 SEEN /hpf (0-5)
[2021-06-19 13:08] VITALS: BP 107/75; PULSE 101; RESP 20; TEMP 37.1; O2SAT 93
[2021-06-19] MEDS: Potassium Chloride Oral Tablet 20 MEQ 40 MEQ PO (13:43)
[2021-06-19 13:46] VITALS: BP 108/83; PULSE 100; RESP 16; TEMP 36.6; O2SAT 96
[2021-06-19 14:40] VITALS: BP 101/60; PULSE 94; RESP 14; O2SAT 96
[2021-06-19 15:20] LABS: Reflex Lactate? Y
== END 2021-06-19 14:41 | disposition home or self-care (01) ==
PROVIDERS: Emergency Provider Emergency Medicine; PCP Family Medicine
DX: B34.9 Viral infection, unspecified (principal); Z20.822 Contact with and (suspected) exposure to COVID-19; E87.6 Hypokalemia; R11.0 Nausea; R68.83 Chills (without fever); M79.10 Myalgia, unspecified site; I10 Essential (primary) hypertension; Z79.1 Long term (current) use of non-steroidal anti-inflammatories (NSAID); Z79.899 Other long term (current) drug therapy; Z90.710 Acquired absence of both cervix and uterus; Z90.49 Acquired absence of other specified parts of digestive tract
CPT/HCPCS: 71045; 80053; 81001; 83605; 85025; 87426; 87804; 96360; 96361; 99285; J7040

== ENCOUNTER 2021-08-14 09:00 | Outpatient (RCR) | payer OTHER, SELFPAY ==
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
--- NOTE | 2021-06-23 13:42 | HP.PTREVAL ---
CHRIS ELLIS, It has been my pleasure to treat FRANCIA GAMA over the last 8 visits for LUMBAR SPONDYLOLISTHESIS. Please see the progress note below for an update on the physical therapy plan of care! Subjective: PATIENT REPORTS SHE IS GETTING MORE STRENGTH IN HER LEGS AND STOMACH. STATES SHE IS HAVING LESS PAIN. SHE STATES SHE IS WALKING A LOT BETTER AND FASTER. PATIENT DENIES LEG SX'S. STATES THAT SHE DOES STILL GET SOME BACK SPASMS WITH THINGS LIKE GETTING UP FROM A CHAIR AND OUT OF BED. PATIENT REPORTS SHE ISN'T SURE IF SHE IS READY TO GO BACK TO WORK YET. 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 EVEN 25 LBS WOULD PROBABLY BE HARD NOW. STATES WORK ALSO INVOLVES SOME BENDING BUT SHE CAN TAKE HER GRABBER. FOLLOW UP WITH SURGEON NEXT TUESDAY. DOING HEP. PATIENT REPORTS SHE FOUND THAT SHE CAN NOT GET UP FROM THE FLOOR ALONE IF SHE GETS DONE. PATIENT REPORTS SHE ISN'T SUPPOSED TO VACUUM BUT SHE DID ANYWAY AND WAS CAREFUL - BACK GOT TENSE AND TIRED. Objective/Function: PATIENT WAS SEEN TODAY FOR RE-ASSESSMENT OF PROGRESS TOWARD THE SET PT GOALS AND THE NEED FOR FURTHER PHYSICAL THERAPY VS READINESS FOR DISCHARGE. UPON EXAM TODAY SHE IS MAKING GOOD PROGRESS TOWARD ALL PT GOALS AND IS A GOOD CANDIDATE TO CONTINUE FORMAL PT BASED ON PROGRESS MADE, ROOM FOR FURTHER IMPROVEMENT AND NATURE OF PHYSICAL WORK THAT SHE WILL BE RETURNING TO. PATIENT IS AGREEABLE. SHE IS REPORTING LESS PAIN, GAINING STRENGTH IN HER TRUNK AND LEGS AND FUNCTION WITH ADL'S IS IMRPROVING. CORE STRENGTH IS STILL POOR THOUGH AND SHE STILL HAS SOME SANA HIP WEAKNESS GRADED 4/5. SHE APPEARS TO BE A GOOD CANDIDATE FOR AQUATIC THERAPY AND PATIENT WILL DISCUSS WITH SURGEON AT FOLLOW UP. PATIENTS INCISIONS LOOK GOOD WITHOUT ANY SIGNS OF INFECTION. Plan Plan: RE-CHECK AFTER SURGICAL FOLLOW UP WITH POC TO FOLLOW IF MORE PT IS ORDERED. *NO BENDING OR LIFTING > 8 LBS UNTIL FOLLOW UP WITH SURGEON 07/01/21 AND RELEASED TO DO SO. AQUATIC THERAPY IF OK WITH DR. EDDY. POSTURE CORRECTION/STRENGTHENING, INSTRUCTION IN APPROPRIATE BODY MECHANICS AND ACTIVITY MODIFICATIONS. DLS STARTING WITH A NEUTRAL SPINE PROGRESSING ROM TOLERATED. SANA LE ROM, STRETCHING AND STRENGTHENING. HEP INSTRUCTION. Balance/Gait/Functional tests - Balance/Special Test Scores Oswestry Low Back Score: 18 Goals Goal 1:: DECREASE C/O BACK AND LE SX'S. Goal Time Frame: 4-6 Weeks Goal Progress: Progressing Goal 2:: IMPROVE LIFTING, WALKING, SITTING, STANDING, SOCIAL LIFE, TRAVEL AND HOMEMAKING/WORK FUNCTION. Goal Time Frame: 4-6 Weeks Goal Progress: Progressing Goal 3:: INSTRUCT IN PROPHYLAXIS Goal Time Frame: 4-6 Weeks Goal Progress: Progressing Anticipated Interventions Patient/Client Instruction: Educate patient on: Condition, Plan of Care, Risk Factors For the Purpose of:: To improve self management Therapeutic Exercise to Include: Strength training, Body mechanics, Postural training, Neuromotor development, In an aquatic setting, Dynamic Lumbar Stabilization For the Purpose of:: To decrease pain, To improve muscle performance and motor function, To increase tolerance to activity/condition/position, To improve ability of physical actions for home/community/work/leisure, To improve gait and locomotor functions Please do not hesitate to contact me at [phone] by phone or if you have questions or concerns regarding this new plan of care! Sincerely, Smiley Brady, PT, Cert MDT
--- NOTE | 2021-08-14 09:31 | HP.PTDCSUM ---
It has been my pleasure to treat FRANCIA GAMA referred by CHRIS ELLIS, with the diagnosis of LUMBAR SPONDYLOLISTHESIS for a total of 17 visit(s). Discharge Date: Please see the following information for a summary of their discharge status. Subjective: JUST GOT BACK FROM VACATION AND WENT BACK TO WORK Tuesday08/10/21. STATES WORK IS GOING PRETTY GOOD. 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 STATES SHE FEELS GOOD ABOUT KNOWING HER WATER EX'S AND IS GOING TO JOIN A LOCAL HOTEL TO CONTINUE THE EX'S ON HER OWN. lumbar Pain Intensity (Out of 10): 1 % Improvement: 90 Objective/Function: PATIENT WAS SEEN TODAY FOR RE-ASSESSMENT OF PROGRESS TOWARD THE SET PT GOALS AND THE NEED FOR FURTHER PHYSICAL THERAPY VS READINESS FOR DISCHARGE. UPON EXAM TODAY ALL PT GOALS HAVE BEEN MET SHE IS A GOOD CANDIDATE TO CONTINUE INDEP POOL EX AT THIS TIME. PATIENT IS AGREEABLE. SHE IS REPORTING LESS PAIN, GAINING STRENGTH IN HER TRUNK AND LEGS AND FUNCTION WITH ADL'S IS GOOD NOW. SANA LE STRENGTH GRADED 5/5 NOW EXCEPT SANA HIPS 4/5. LUMBAR MVMT LOSS: FLEX - NIL, EXT - FARHANA, SANA SG - FARHANA. PATIENT DENIES INCREASED LBP WITH LUMBAR ROM TESTING ALL PLANES. NEGATIVE SANA LE DURAL SIGNS. SANA LE LIGHT TOUCH SENSATION IS GROSSLY INTACT AND SYMMETRICAL Goal 1:: DECREASE C/O BACK AND LE SX'S. Goal Progress: Goal Met Goal 2:: IMPROVE LIFTING, WALKING, SITTING, STANDING, SOCIAL LIFE, TRAVEL AND HOMEMAKING/WORK FUNCTION. Goal Progress: Goal Met Goal 3:: INSTRUCT IN PROPHYLAXIS Goal Progress: Goal Met Plan: D/C TO INDEP EX. PATIENT AGREEABLE. If there are questions or concerns regarding this patient's physical therapy, please feel free to call me at [phone]. Thank you for the referral of this patient. Sincerely, Smiley Brady, PT, Cert MDT Balance/Gait/Functional tests - Balance/Special Test Scores Oswestry Low Back Score: 10
== END 2021-08-14 19:00 | disposition home or self-care (01) ==
LOC: PT 09:00
PROVIDERS: PCP Family Medicine
DX: M43.16 Spondylolisthesis, lumbar region (principal)
CPT/HCPCS: 97110; 97112; 97113; 97162; 97164

== ENCOUNTER 2021-11-19 15:49 | Outpatient (CLI) | payer BC, SELFPAY | END 2021-11-19 23:59 | disposition short-term general hospital (02) | LOC: LABSPEC 15:51 | PROVIDERS: PCP Family Medicine; Referring Provider Family Medicine; Visit Provider Family Medicine | DX: Z20.822 Contact with and (suspected) exposure to COVID-19 (principal) | CPT/HCPCS: 87635; U0003; U0005 ==

== ENCOUNTER 2022-01-25 13:02 | Outpatient (CLI) | payer BC, SELFPAY ==
[2022-01-25 15:48] LABS: Hematocrit 40.4 % (37-47); Hemoglobin 13.6 g/dL (12.0-15.0); Mean Corp Hgb Conc 33.7 g/dL (32-36); Mean Corpuscular Hgb 30.6 pg (27.0-32.0); Mean Platelet Vol. 10.4 fl (6.2-12.0); Platelet Count 289 K/mm3 (150-450); RBC Distribution Width CV 13.4 % (11.6-14.6); RBC Distribution Width SD 45.4 fl (35.1-43.9); Red Blood Count 4.44 M/mm3 (4.2-5.4); White Blood Count 5.2 K/mm3 (4.4-11.0)
[2022-01-25 16:09] LABS: Vitamin D,25 Hydroxy 50.8 ng/mL
[2022-01-25 16:27] LABS: ALB/GLOB Ratio 0.9 RATIO (0.9-2.4); AST(SGOT) 32 U/L (15-37); Alanine Aminotransfer ALT/SGPT 30 U/L (13-56); Albumin, Serum 3.8 g/dL (3.2-5.0); Alkaline Phosphatase 96 U/L (45-117); Anion Gap 7 (5-15); BUN 9 mg/dL (7-18); BUN/Creat Ratio 11.3 RATIO (10-20); Calcium,Total 8.8 mg/dL (8.5-10.1); Chloride 106 mmol/L (98-107); Cholesterol 205 mg/dL (200); EST Glomerular Filtration Rate 78 mL/min (>60); Est Glom Filt Rate - Afr Amer 94 mL/min (>60); Globulin 4.1 g/dL (2.2-4.2); Glucose 109 mg/dL (74-106); High Density Lipoprotein 62 mg/dL; Potassium 3.2 mmol/L (3.5-5.1); Protein, Total 7.9 g/dL (6.4-8.2); Sodium Level 141 mmol/L (136-145); Thyroid Stim Hormone (TSH) 1.83 uIU/mL (0.358-3.74); Triglycerides 80 mg/dL; Very Low Density Lipoprotein 16 mg/dL (5-40)
== END 2022-01-25 23:59 | disposition home or self-care (01) ==
LOC: MTLAB 13:04
PROVIDERS: PCP Family Medicine; Referring Provider Family Medicine; Visit Provider Family Medicine
DX: K21.9 Gastro-esophageal reflux disease without esophagitis (principal); I10 Essential (primary) hypertension; F41.1 Generalized anxiety disorder; R79.89 Other specified abnormal findings of blood chemistry
CPT/HCPCS: 36415; 80053; 80061; 82306; 84443; 85027

== ENCOUNTER → 2022-04-15 | Outpatient (CLI) | payer BC, SELFPAY ==
--- NOTE | 2022-04-15 11:40 | RAD_ITS ---
EXAM: XR LEFT HIP WITH PELVIS WHEN PERFORMED, 2 OR 3 VIEWS CLINICAL INDICATION: pain TECHNIQUE: Two or three views of the left hip with pelvis when performed. This report was created using [employer] report generation technology. COMPARISON: None. FINDINGS: BONES/JOINTS: Unremarkable. No displaced fracture. No destructive or sclerotic lesions. Note that overlapping bowel shadows may however obscure fine detail. Sacroiliac joint is unremarkable. No widening of the pubic symphysis. The articular structures are unremarkable. Bilateral pedicle screws are seen at L4 and L5. SOFT TISSUES: Unremarkable. No soft tissue swelling or gas. RAD/HIP, UNI W/ Pelvis 2-3 Views IMPRESSION: No evidence of displaced pelvic or hip fracture. Electronically Signed: Dane Rees MD at 18:03 EDT ,
== END | disposition home or self-care (01) ==
LOC: MTRAD 11:40
PROVIDERS: PCP Family Medicine; Referring Provider Nurse Practitioner Family; Visit Provider Nurse Practitioner Family
DX: M25.552 Pain in left hip (principal)
CPT/HCPCS: 73502

== ENCOUNTER → 2022-05-17 | Outpatient (CLI) | payer BC, SELFPAY ==
[2022-05-17 12:37] LABS: Anion Gap 9 (5-15); BUN 12 mg/dL (7-18); BUN/Creat Ratio 15.1 RATIO (10-20); Calcium,Total 9.2 mg/dL (8.5-10.1); Chloride 103 mmol/L (98-107); Creatinine, Serum 0.79 mg/dL (0.55-1.02); EST Glomerular Filtration Rate 78 mL/min (>60); Est Glom Filt Rate - Afr Amer 95 mL/min (>60); Glucose 96 mg/dL (74-106); Potassium 3.9 mmol/L (3.5-5.1); Sodium Level 142 mmol/L (136-145)
== END | disposition home or self-care (01) ==
LOC: MFPLAB 09:41
PROVIDERS: PCP Family Medicine; Visit Provider Family Medicine
DX: I10 Essential (primary) hypertension (principal)
CPT/HCPCS: 36415; 80048

== ENCOUNTER 2022-12-03 19:24 | Emergency (ER) | payer BC, SELFPAY ==
[2022-12-03 19:25] VITALS: BP 193/103; PULSE 92; RESP 15; TEMP 36.2; O2SAT 100; BMI 30.8
--- NOTE | 2022-12-03 19:35 | RAD_ITS ---
STUDY: X-RAY - LEFT HAND REASON FOR EXAM: Female, 62 years old. INJURY -- LEFT TECHNIQUE: 3 view(s) of the hand. COMPARISON: None. FINDINGS: Narrowed radiocarpal articulation. Narrowing of the radioulnar joint. Postsurgical changes status post multiple carpal bone fusion.. Normal carpal articulations Degenerative changes of the carpometacarpal articulation of the thumb. Normal second through fifth carpometacarpal joints. 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 Normal interphalangeal joint of the thumb. Normal proximal and distal phalanges of the thumb. Normal metacarpophalangeal joints of the second through fifth fingers. Normal proximal and distal interphalangeal joints of the second through fifth fingers. Normal phalanges of the second through fifth fingers. Focal soft tissue swelling of the medial aspect of the fifth metacarpal phalangeal joint. No definitive evidence for acute fracture or dislocation.. RAD/Hand Min 3 Views IMPRESSION: Focal soft tissue swelling medial to the fifth metacarpal phalangeal joint without evidence for associated fracture or dislocation. MRI would be helpful to exclude focal tendon or ligamentous injury Electronically Signed: Tj Keith MD at 19:52 EST Reading Location ID and State: [facility] / [place] , Service support ,
--- NOTE | 2022-12-03 21:19 | EDS_ITS ---
HPI HPI - Fall History of Present Illness Chief Complaint: Fall Informant: patient Narrative Narrative: Patient had a mechanical fall at home. She was walking her dog. One of her other dogs ran out through the door and the dog that was on the the leash she was holding took off running and knocked her over. She landed on her buttock and hand. She did roll back and hit the head. She did not lose consciousness. She has mild soreness just at the posterior occiput where she hit but no diffuse headache. She remembers the event and her grandson talking to her right away. She has had no nausea vomiting. She is not on any blood thinners. She is acting normally per her daughter that is in the room. Her primary complaint is pain over the distal left small finger. PFSH PFS Medical History Acute frontal sinusitis, unspecified Fatigue Hypertension Severe headache Home Medications amlodipine 10 mg tablet 10 mg PO DAILY 06/16/20 [History Last Taken Unknown] bupropion HCl 300 mg 24 hr tablet, extended release 300 mg PO DAILY 06/16/20 [History Last Taken Unknown] citalopram 40 mg tablet 40 mg PO DAILY 06/16/20 [History Last Taken Unknown] metoprolol tartrate 100 mg tablet 100 mg PO BID 06/16/20 [History Last Taken Unknown] omeprazole 20 mg capsule,delayed release 20 mg PO DAILY 07/24/21 [History Last Taken Unknown] hydrocodone-acetaminophen 5-325mg 5mg-325mg 1 tab PO Q6H PRN PRN Pain 3 days #10 TABLETS 12/03/22 [Rx Last Taken Unknown] Allergy/AdvReac Type Severity Reaction Status Date / Time morphine Allergy Itching Verified 12/03/22 19:28 paroxetine [From Paxil] Allergy Unknown Verified 12/03/22 19:28 Tetracyclines Allergy Unknown Verified 12/03/22 19:28 Family History Other Diabetes Hypertension Surgical History H/O section H/O wrist surgery History of back surgery History of hysterectomy History of repair of hiatal hernia Hx of cholecystectomy Hx of tonsillectomy Social History Smoking Status: Never smoker alcohol intake: never ROS ROS ED Constitutional Constitutional ED: Denies chills or fever(s) Eyes Eyes: Denies blurry vision, change in vision or diplopia ENT ENT ED: Denies rhinorrhea or sore throat Cardiovascular Cardiovascular: Denies chest pain or palpitations Respiratory/Chest Respiratory/Chest: Denies cough or dyspnea Gastrointestinal Gastrointestinal: Denies nausea or vomiting Musculoskeletal Musculoskeletal: Reports arthralgias; Denies myalgias or neck pain Integumentary Denies Abrasions or rash Neurologic Neurologic: Denies paresthesias or weakness Psychiatric Psychiatric: Denies anxiety Endocrine Endocrinology: Denies polydipsia or polyuria Hematologic/Lymphatic Hematologic/Lymphatic: Denies lymphadenopathy EXAM Physical Exam Narrative Exam Narrative: Patient is awake alert appropriate. She carries on normal conversation. She very clear informant. HEENT shows no sign of head injury. I do not feel any swollen areas. She has little tenderness of the occiput but no swelling laceration step-off or crepitance. No bleeding from the ear. No facial tenderness or asymmetry. Neck shows no tenderness no pain with motion. Lungs are clear bilaterally. She takes good deep breaths without pain. No tenderness. Heart is regular. No murmur gallop or rub is noted. Abdomen is soft and nontender Back shows no CVA or suprapubic tenderness Extremity she landed on the left buttock but really no tenderness or pain with range of motion of that leg or hip. No shortening. Her left hand does show some swelling and early ecchymosis around the distal aspect of the left fifth metacarpal. This is her primary area of pain. No deformity is noted. Capillary refill is normal. Patient is awake alert and appropriate Skin shows contusion as above but no other acute injury. Const Vital Signs: 12/03/22 19:25 12/03/22 20:51 12/03/22 22:30 Temperature 97.2 F L Temperature Source Temporal Pulse Rate 92 77 Respiratory Rate 15 18 Respiratory Effort Normal Non-Labored Respiratory Depth Normal Respiratory Pattern Normal Blood Pressure 193/103 H 172/93 H Blood Pressure Mean 133 119 Pulse Ox 100 98 Oxygen Delivery Method Room Air Room Air MDM MDM MDM Narrative Medical decision making narrative: My independent interpretation of the patient's three-view x-ray of the left hand shows prior surgical changes which are known. I am suspicious that there may be a distal fifth metacarpal fracture that has not really displaced. This is consistent with her area of pain and swelling. Final reading by radiology shows soft tissue swelling in that area they recommend an MRI which can be done in the future. Procedure: Ulnar gutter splint: We discussed with the patient that my interpretation does varies from radiology's. But I also have the advantage of knowing where it is swollen painful and tender. She was placed in a 3 inch x [address] ul[address] gut ter splint. I could not do dorsal angulation of the wrist as I normally would due to her partial fusion from prior surgery. This was gently Stephen wrap in place. We let this hardened. I then checked her afterwards and she has normal capillary refill and can move the tips of those fingers. Normal sensation. We discussed that she should follow-up. She will see her hand surgeon, Dr. Taco hairston at [facility]. I will try to get a copy of her images on a CD so she can take with her. I explained that they would likely do a repeat x-ray and this may define the injury more and could show a fracture as I suspect. Radiography Diagnostic Testing: Clinical Impression(s) from Imaging Studies Hand X-Ray 12/03/22 19:35 IMPRESSION: Focal soft tissue swelling medial to the fifth metacarpal phalangeal joint without evidence for associated fracture or dislocation. MRI would be helpful to exclude focal tendon or ligamentous injury Electronically Signed: Tj Keith MD at 19:52 EST Reading Location ID and State: [facility] / [place] , Service support , Procedures Upper Extremity Splints Upper Extremity Splint: Orthoglass and Ulnar gutter Splint Fabrication: Fabricated Location: Left (See [facility]) Discharge Plan Triage Chief Complaint: Fall ED Provider: Bruno Wiley Dx/Rx/DC Orders Clinical Impression: Fall at home, Closed fracture of fifth metacarpal bone of left hand Instructions: ED Closed Hand Fracture (Adult) Prescriptions: New hydrocodone-acetaminophen [hydrocodone-acetaminophen] 5-325 mg tablet 1 tab PO Q6H PRN PRN (Reason: Pain) 3 Days Qty: 10 0RF No Action citalopram 40 mg tablet 40 mg PO DAILY Label Comments: take 1 tablet by mouth once daily metoprolol tartrate 100 MG tablet 100 mg PO BID amlodipine 10 MG tablet 10 mg PO DAILY bupropion HCl 300 MG tablet extended release 24 hr 300 mg PO DAILY omeprazole 20 mg capsule,delayed release(DR/EC) 20 mg PO DAILY Primary Care Provider: Van Cheung Referrals: Van Cheung MD [Primary Care Provider] - Hermann España MD [Non-Staff] - 1 Week Disposition Disposition: Home, Self Care
[2022-12-03] MEDS: HYDROcodone Bitartrate/Apap 5/325 Tablet PO (22:22)
[2022-12-03 22:30] VITALS: BP 172/93; PULSE 77; RESP 18; O2SAT 98
== END 2022-12-03 23:14 | disposition home or self-care (01) ==
PROVIDERS: Emergency Provider Emergency Medicine; PCP Family Medicine; Visit Provider Emergency Medicine
DX: S62.307A Unspecified fracture of fifth metacarpal bone, left hand, initial encounter for closed fracture (principal); I10 Essential (primary) hypertension; W19.XXXA Unspecified fall, initial encounter
CPT/HCPCS: 29125; 73130; 99283

== ENCOUNTER → 2023-08-11 | Outpatient (CLI) | payer BC, SELFPAY ==
[2023-08-11 17:42] LABS: Hematocrit 40.3 % (37-47); Mean Corp Hgb Conc 32.3 g/dL (32-36); Mean Corpuscular Hgb 29.8 pg (27.0-32.0); Mean Corpuscular Volume 92.4 fL (81-99); Mean Platelet Vol. 10.2 fl (6.2-12.0); Platelet Count 293 K/mm3 (150-450); RBC Distribution Width CV 14.2 % (11.6-14.6); RBC Distribution Width SD 48.4 fl (35.1-43.9); Red Blood Count 4.36 M/mm3 (4.2-5.4); White Blood Count 5.2 K/mm3 (4.4-11.0)
[2023-08-11 18:26] LABS: ALB/GLOB Ratio 0.9 RATIO (0.9-2.4); AST(SGOT) 26 U/L (15-37); Alanine Aminotransfer ALT/SGPT 29 U/L (13-56); Albumin, Serum 3.7 g/dL (3.2-5.0); Alkaline Phosphatase 103 U/L (45-117); Anion Gap 4 (5-15); BUN 14 mg/dL (7-18); BUN/Creat Ratio 17.6 RATIO (10-20); Calcium,Total 9.1 mg/dL (8.5-10.1); Chloride 104 mmol/L (98-107); Creatinine, Serum 0.79 mg/dL (0.55-1.02); EST Glomerular Filtration Rate 78 mL/min (>60); Est Glom Filt Rate - Afr Amer 94 mL/min (>60); Glucose 98 mg/dL (74-106); Magnesium 2.7 mg/dL (1.6-2.6); Potassium 3.7 mmol/L (3.5-5.1); Protein, Total 7.7 g/dL (6.4-8.2); Sodium Level 138 mmol/L (136-145); Thyroid Stim Hormone (TSH) 2.62 uIU/mL (0.358-3.74)
== END | disposition home or self-care (01) ==
LOC: MFPLAB 16:02
PROVIDERS: PCP Family Medicine; Visit Provider Family Medicine
DX: I16.0 Hypertensive urgency (principal); D64.9 Anemia, unspecified; E78.00 Pure hypercholesterolemia, unspecified; R79.89 Other specified abnormal findings of blood chemistry
CPT/HCPCS: 36415; 80053; 82306; 83735; 84443; 85027

== ENCOUNTER → 2023-10-05 | Outpatient (CLI) | payer BC, SELFPAY ==
[2023-10-05 17:35] LABS: Absolute Lymphocyte Count 1.79 X10^3/uL (0.83-4.51); Absolute Neutrophil Count 3.2 X10^3/uL (2.0-7.7); Basophil# 0.03 X10^3/uL; Basophil% 0.5 % (0-1); Eosinophil# 0.19 X10^3/uL; Eosinophils% 3.3 % (0-5); Hematocrit 38.4 % (37-47); Hemoglobin 12.5 g/dL (12.0-15.0); Lymphocyte # 1.79 X10^3/ul (0.83-4.51); Lymphocyte % 31.1 % (19-41); Mean Corp Hgb Conc 32.6 g/dL (32-36); Mean Corpuscular Hgb 29.6 pg (27.0-32.0); Mean Corpuscular Volume 90.8 fL (81-99); Monocyte# 0.51 X10^3/uL; Monocyte% 8.9 % (0-10); NRBC Flagged by Analyzer 0 % (0-5); Neutrophil # 3.22 X10^3/uL (2.7-7.7); Platelet Count 304 K/mm3 (150-450); RBC Distribution Width CV 14.4 % (11.6-14.6); RBC Distribution Width SD 47.8 fl (35.1-43.9); Red Blood Count 4.23 M/mm3 (4.2-5.4)
[2023-10-05 18:02] LABS: AST(SGOT) 23 U/L (15-37); Alanine Aminotransfer ALT/SGPT 22 U/L (13-56); Albumin, Serum 3.5 g/dL (3.2-5.0); Alkaline Phosphatase 107 U/L (45-117); Bilirubin, Direct 0.09 mg/dL (0.00-0.30); Globulin 4.3 g/dL (2.2-4.2); Protein, Total 7.8 g/dL (6.4-8.2); Rheumatoid Factor < 10.0 IU/mL (<15); Uric Acid 3.5 mg/dL (2.6-6.0)
[2023-10-05 18:07] LABS: Corrected WBC 5.5 K/mm3 (4.4-11.0); Erythrocyte Sedimentation Rate 20 mm/hr (0-30); Nucleated Red Bld Cells,Manual 5.8 % (0-5)
[2023-10-07 12:09] LABS: ANTINUCLEAR ANTIBODIES DIRECT Negative (Negative)
[2023-10-10 16:09] LABS: PROEL- A/G Ratio 0.9 (0.7-1.7); PROEL- Albumin 3.4 g/dL (2.9-4.4); PROEL- Alpha-1 Globulin 0.2 g/dL (0.0-0.4); PROEL- Beta Globulin 1.2 g/dL (0.7-1.3); PROEL- Gamma Globulin 1.3 g/dL (0.4-1.8); PROEL- Globulin, Total 3.8 g/dL (2.2-3.9); PROEL- TOTAL PROTEIN 7.2 g/dL (6.0-8.5); PROEL-M-Spike Not Observed g/dL (Not Observed)
== END | disposition home or self-care (01) ==
LOC: MFPLAB 15:06
PROVIDERS: PCP Family Medicine; Visit Provider Family Medicine
DX: M25.50 Pain in unspecified joint (principal)
CPT/HCPCS: 36415; 80076; 84165; 84550; 85025; 85652; 86038; 86431

== ENCOUNTER 2024-05-19 14:43 | Emergency (ER) | payer BC, SELFPAY ==
[2024-05-19 14:44] VITALS: BP 118/82; PULSE 90; RESP 16; TEMP 36.4; O2SAT 96
[2024-05-19] MEDS: Lidocaine 1% (20 ml mdv) 20 ML Vial INFILT (15:10)
--- NOTE | 2024-05-19 15:33 | EDS_ITS ---
HPI <DANETTE Wasserman - Last Filed: 05/19/24 15:49> History of Present Illness Chief Complaint: Laceration Narrative Narrative: Patient is a 63-year-old female with history of hypertension who presents to the emergency department with a laceration to the left foot. Patient states that a receptacle was tipped over, and there was glass in the back that struck her in her left foot. Patient has a 2.5 cm laceration to the lateral foot just below the lateral malleolus. No foreign body noted. Full-thickness. Tetanus vaccination up-to-date. [facility] <DANETTE Wasserman - Last Filed: 05/19/24 15:49> [facility] Medical History Acute frontal sinusitis, unspecified Severe headache Fatigue Hypertension Home Medications ?Medication ?Instructions ?Recorded ?Last Taken ?Type amlodipine 10 mg tablet 10 mg PO DAILY 06/16/20 Unknown History bupropion HCl 300 mg 24 hr tablet, 300 mg PO DAILY 06/16/20 Unknown History extended release omeprazole 20 mg capsule,delayed 20 mg PO DAILY 07/24/21 Unknown History release amoxicillin 875 mg-potassium 1 tab PO Q12H #14 tabs 04/27/24 Unknown Rx clavulanate 125 mg tablet cholecalciferol (vitamin D3) 50 50 mcg PO QDAY 04/27/24 Unknown History mcg (2,000 unit) capsule duloxetine 30 mg capsule,delayed 30 mg PO QDAY 04/27/24 Unknown History release fluticasone propionate 50 2 spray intranasal QDAY 04/27/24 Unknown History mcg/actuation nasal spray,suspension losartan 100 1 tab PO QDAY 04/27/24 Unknown History mg-hydrochlorothiazide 12.5 mg tablet meloxicam 15 mg tablet 15 mg PO QDAY 04/27/24 Unknown History Allergy/AdvReac Type Severity Reaction Status Date / Time latex Allergy Mild Rash Verified 05/19/24 14:44 morphine Allergy Itching Verified 05/19/24 14:44 paroxetine (From Paxil) Allergy Unknown Verified 05/19/24 14:44 Tetracyclines Allergy Unknown Verified 05/19/24 14:44 Family History Other Diabetes Hypertension Surgical History H/O wrist surgery History of back surgery H/O section History of repair of hiatal hernia Hx of tonsillectomy Hx of cholecystectomy History of hysterectomy Social History Smoking Status: Never smoker alcohol intake: never ROS <DANETTE Wasserman - Last Filed: 05/19/24 15:49> ROS ED ROS Narrative Constitutional: Negative for fever, chills, weight loss, weakness Eyes: Negative for vision loss, vision change, double vision ENT: Negative for any sore throat, ear pain, congestion Cardiovascular: Negative for any chest pain, tightness, palpitations Respiratory: Negative for any cough, sputum production, hemoptysis, dyspnea, dyspnea on exertion, orthopnea Gastrointestinal: Negative for any abdominal pain, nausea, vomiting, diarrhea, constipation, blood in stool, blood in vomit : Negative for any urinary frequency, dysuria, retention, blood in urine Muscle skeletal: Negative for any neck pain, back pain Neurological: Negative for any headache, syncope, dizziness Skin: Negative for any rashes, itching, abrasions. Positive for laceration to the left foot Psychiatric: Negative for any depression, anxiety, stress, suicidal ideation, homicidal ideation Hematologic: Negative for any excessive bruising, easy bleeding EXAM <DANETTE Wasserman - Last Filed: 05/19/24 15:49> Physical Exam Narrative Exam Narrative: Vital signs reviewed. Extremities: No peripheral edema, no signs of gross trauma or deformity. Active full range of motion of all extremities. Patient has a 2.5 cm laceration to the left lateral foot, this is just below the lateral malleolus. Full-thickness however there is no foreign body. Full range of motion. No neurological focal deficits, patient able to flex and dorsiflex resistance. Neuro: Cranial nerves II through XII intact, no focal neurological deficits. Skin: Clean dry and intact with no rash, purpura, petechiae, vesicles or pustules. Backs/flank: No CVA tenderness, no midline spinal tenderness, no deformity. Psych: Normal mood and affect. No SI, HI or acute psychosis. Const Vital Signs: 05/19/24 14:44 Temperature 97.5 F L Temperature Source Temporal Pulse Rate 90 Respiratory Rate 16 Blood Pressure 118/82 H Blood Pressure Mean 94 Pulse Ox 96 Oxygen Delivery Method Room Air Positive well nourished and well developed General Appearance ED: well developed <Enrique Montenegro MD - Last Filed: 05/19/24 15:48> Physical Exam Const Vital Signs: 05/19/24 14:44 Temperature 97.5 F L Temperature Source Temporal Pulse Rate 90 Respiratory Rate 16 Blood Pressure 118/82 H Blood Pressure Mean 94 Pulse Ox 96 Oxygen Delivery Method Room Air MDM <DANETTE Wasserman - Last Filed: 05/19/24 15:49> [facility] Treatment and Re-Evaluation :: Differential diagnosis includes however is not limited to: Foreign body, open fracture, simple laceration Patient appears to be in no obvious distress, patient's vital signs are stable. Presenting to the emergency department with complaints of left foot laceration. This is roughly 2.5 cm. Sterile gloves, sterile drapes were used, was able anesthetized the area with lidocaine. Copiously irrigated with 200 cc of normal saline. There is no foreign body noted. I was able to place 5 simple inte rrupted sutures. These removed in 10 to 12 days. Patient instructed return for any worsening symptoms. Stable for discharge <Enrique Montenegro MD - Last Filed: 05/19/24 15:48> [facility] Narrative Medical decision making narrative: Dr. Montenegro: I have personally performed a face to face assessment of the patient and have reviewed the TERESA Note. I performed a substantive portion of the visit including all aspects of the following. My benton findings include: History is laceration to lateral aspect left foot Exam is afebrile. Vital signs noted. Palpable dorsalis pedis pulse, left. 2.5 cm laceration left ankle near left lateral malleolus. Medical Decision Making: Laceration repair. Follow-up primary care. Suture removal in 7 to 10 days. Discharge. Other additions or changes: [None] Discharge Plan Triage Chief Complaint: Laceration ED Midlevel Provider: Simeon Boudreaux ED Provider: Enrique Montenegro Dx/Rx/DC Orders Clinical Impression: Foot laceration Instructions: ED Laceration Extremity Prescriptions: No Action losartan-hydrochlorothiazide 100-12.5 mg tablet 1 tab PO QDAY meloxicam 15 mg tablet 15 mg PO QDAY cholecalciferol (vitamin D3) 50 mcg (2,000 unit) capsule 50 mcg PO QDAY fluticasone propionate 50 mcg/actuation spray,suspension 2 spray intranasal QDAY duloxetine 30 mg capsule,delayed release(DR/EC) 30 mg PO QDAY amoxicillin-pot clavulanate 875-125 mg tablet 1 tab PO Q12H Qty: 14 0RF amlodipine 10 MG tablet 10 mg PO DAILY bupropion HCl 300 MG tablet extended release 24 hr 300 mg PO DAILY omeprazole 20 mg capsule,delayed release(DR/EC) 20 mg PO DAILY Primary Care Provider: Juan Luis Cheung Referrals: Juan Luis Cheung MD [Primary Care Provider] - Activity Restrictions/Additional Instructions: Sutures need to be removed in 10 to 12 days. Turn for any worsening symptoms. Print Language: Japanese Disposition Disposition: Home, Self Care
[2024-05-19 15:44] VITALS: BP 128/76; PULSE 78; RESP 16; TEMP 36.3; O2SAT 99
== END 2024-05-19 15:58 | disposition home or self-care (01) ==
PROVIDERS: Emergency Provider Emergency Medicine; PCP Family Medicine; Visit Provider Emergency Medicine
DX: S91.312A Laceration without foreign body, left foot, initial encounter (principal); W25.XXXA Contact with sharp glass, initial encounter; I10 Essential (primary) hypertension; Z79.899 Other long term (current) drug therapy
CPT/HCPCS: 12001; 99282

== ENCOUNTER 2024-05-22 15:13 | Emergency (ER) | payer BC, SELFPAY ==
[2024-05-22 15:13] VITALS: BP 181/126; PULSE 65; RESP 12; TEMP 36.9; O2SAT 98; BMI 29.5
--- NOTE | 2024-05-22 15:57 | EDS_ITS ---
HPI HPI - GI History of Present Illness Chief Complaint: Abd Pain Narrative Narrative: 63-year-old female with abdominal pain. She states she has a history of a Azul fundoplication that was performed by Dr. Skaggs at [facility]. She states that this was done years ago and the reason the procedure was done because she was bleeding from her stomach due to hiatal hernia. Patient states that she was told that her hiatal hernia repair has been coming undone. She has not an crampy pain in the epigastrium. She states it has been going on for 6 months now. Her primary care doctor recommended that she come to the emergency room to get evaluated due to the worsening pain. Patient denies fever or chills. She denies diarrhea. She does have nausea and states he has trouble eating secondary to pain. She is on omeprazole at home. [facility] Medical History Acute frontal sinusitis, unspecified Severe headache Fatigue Hypertension Home Medications ?Medication ?Instructions ?Recorded ?Last Taken ?Type amlodipine 10 mg tablet 10 mg PO DAILY 06/16/20 Unknown History bupropion HCl 300 mg 24 hr tablet, 300 mg PO DAILY 06/16/20 Unknown History extended release omeprazole 20 mg capsule,delayed 20 mg PO DAILY 07/24/21 Unknown History release amoxicillin 875 mg-potassium 1 tab PO Q12H #14 tabs 04/27/24 Unknown Rx clavulanate 125 mg tablet cholecalciferol (vitamin D3) 50 50 mcg PO QDAY 04/27/24 Unknown History mcg (2,000 unit) capsule duloxetine 30 mg capsule,delayed 30 mg PO QDAY 04/27/24 Unknown History release fluticasone propionate 50 2 spray intranasal QDAY 04/27/24 Unknown History mcg/actuation nasal spray,suspension losartan 100 1 tab PO QDAY 04/27/24 Unknown History mg-hydrochlorothiazide 12.5 mg tablet meloxicam 15 mg tablet 15 mg PO QDAY 04/27/24 Unknown History sucralfate 100 mg/mL oral 10 ml PO BID #300 mL 05/22/24 Unknown Rx suspension (Carafate) Allergy/AdvReac Type Severity Reaction Status Date / Time latex Allergy Mild Rash Verified 05/22/24 15:15 morphine Allergy Itching Verified 05/22/24 15:15 paroxetine (From Paxil) Allergy Unknown Verified 05/22/24 15:15 Tetracyclines Allergy Unknown Verified 05/22/24 15:15 Family History Other Diabetes Hypertension Surgical History H/O wrist surgery History of back surgery H/O section History of repair of hiatal hernia Hx of tonsillectomy Hx of cholecystectomy History of hysterectomy Social History Smoking Status: Never smoker alcohol intake: never ROS ROS ED Constitutional Constitutional ED: Denies chills, fever(s) or sweats Eyes Eyes: Denies blurry vision or change in vision ENT ENT ED: Denies ear pain or sore throat Cardiovascular Cardiovascular: Denies chest pain, palpitations or racing heartbeat Respiratory/Chest Respiratory/Chest: Denies cough, dyspnea or sputum Gastrointestinal Gastrointestinal: Reports abdominal pain and nausea; Denies constipation or vomiting Genitourinary Genitourinary ED: Denies dysuria, hematuria or urinary frequency Musculoskeletal Musculoskeletal: Denies arthralgias, myalgias or neck pain Integumentary Denies abscess, Abrasions or rash Neurologic Neurologic: Denies headache(s), paresthesias or weakness Psychiatric Psychiatric: Denies anxiety, depression, suicidal ideation or suicidal thoughts Endocrine Endocrinology: Denies polydipsia or polyuria EXAM Physical Exam Const Vital Signs: 05/22/24 15:13 05/22/24 17:13 05/22/24 19:00 Temperature 98.5 F 98.7 F 97.4 F L Temperature Source Oral Oral Temporal Pulse Rate 65 92 70 Respiratory Rate 12 18 18 Blood Pressure 181/126 H Blood Pressure Mean 144 Pulse Ox 98 91 97 Oxygen Delivery Method Room Air Room Air Room Air 05/22/24 20:56 Temperature 97.7 F L Temperature Source Pulse Rate 70 Respiratory Rate 18 Blood Pressure 140/96 H Blood Pressure Mean 110 Pulse Ox 92 Oxygen Delivery Method Positive well nourished General Appearance ED: NAD; Negative for pallor HEENT normocephalic Eyes PERRL and EOMs intact bilaterally Neck no lymphadenopathy Resp normal respiratory effort and clear to auscultation bilaterally Auscultation: Negative for rales, rhonchi or wheezes Cardio regular rate and regular rhythm GI Palpation: tender epigastric Neuro CN's II-XII intact bilaterally and moves all extremities Sensorium / Orientation: alert Motor Exam: strength 5/5 throughout Psych mental status grossly normal and thought process normal Skin General Skin Exam: Negative for jaundice or pallor MDM MDM MDM Narrative Medical decision making narrative: Patient presenting with epigastric pain. Patient presenting with right flank pain. Differential includes colitis, diverticulitis, gastritis, pancreatitis, constipation, appendicitis, UTI, pyelonephritis, calculi, ureteral calculi, obstruction, malignancy, dehydration, electrolyte abnormalities, hiatal hernia. Patient medicated with 0.5 mg of Dilaudid and Zofran. She was given IV fluids. CBC will be obtained to assess white blood cell count, hemoglobin, platelets. CMP to assess renal function, electrolytes, liver function, glucose. Lipase to assess for pancreatitis. Urinalysis to assess for UTI. CBC showed normal white blood cell count of 5.1. Hemoglobin 13.6. Platelets normal 279. Renal function and electrolytes unremarkable exception of a low potassium at 3.3. LFTs are normal with exception of mildly elevated AST at 38. Lipase negative. Urinalysis negative. CT of the abdomen pelvis was obtained which showed a large hiatal hernia with questionable tiny focus of air in the lower mediastinum. Recommendation was for CT esophagram which was ordered. I also discussed the case with Dr. Kelly who agreed. CT esophagram was negative for perforation. Patient was given a second dose of pain medication. I counseled her that she will need to follow-up with her previous facility given that her hiatal hernia is getting worse. She is on a PPI and I will add Protonix. I recommend she does not take NSAIDs as well. Return precautions were discussed. Impression: 1. Hiatal hernia 2. Abdominal pain Lab Data Attestation: I reviewed the patient's lab results. Labs: Laboratory Results - last 24 hr 05/22/24 05/22/24 16:30 16:42 WBC 5.1 RBC 4.68 Hgb 13.6 Hct 41.0 MCV 87.6 MCH 29.1 MCHC 33.2 RDW Std Deviation 47.1 H RDW Coeff of Kehinde 14.7 H Plt Count 279 MPV 10.0 Immature Gran % (Auto) 0.200 Neut % (Auto) 61.2 Lymph % (Auto) 27.9 Real % (Auto) 8.2 Eos % (Auto) 2.1 Baso % (Auto) 0.4 Absolute Neuts (auto) 3.1 Absolute Lymphs (auto) 1.43 Nucleated RBC % 0 Sodium 139 Potassium 3.3 L Chloride 105 Carbon Dioxide 27.0 Anion Gap 7 BUN 12 Creatinine 0.87 Estim Creat Clear Calc 72.86 Est GFR (MDRD) Af Amer 84 Est GFR (MDRD) Non-Af 70 BUN/Creatinine Ratio 13.7 Glucose 118 H Calcium 9.1 Total Bilirubin 0.50 AST 38 H ALT 35 Alkaline Phosphatase 102 Total Protein 8.1 Albumin 3.7 Globulin 4.4 H Albumin/Globulin Ratio 0.8 L Lipase 21 Urine Color Yellow Urine Clarity Clear Urine pH 7.0 Ur Specific [place] 1.010 Urine Protein Negative Urine Glucose (UA) Normal Urine Ketones Negative Urine Occult Blood 10 H Urine Nitrite Negative Urine Bilirubin Negative Urine Urobilinogen Normal Ur Leukocyte Esterase Negative Urine RBC 0 SEEN Urine WBC 0 SEEN Ur Squamous Epith Cells 0 SEEN Urine Bacteria 0 SEEN Urine Mucus 0 SEEN Radiography Diagnostic Testing: Clinical Impression(s) from Imaging Studies Abdomen/Pelvis CT 05/22/24 17:17 IMPRESSION: Large hiatal hernia. Questionable tiny focus of air seen in the lower mediastinum just anterior to the GE junction. If clinical concern for perforation, recommend CT Esophagram. Posterior fusion L4-L5 with migration of the L4-L5 interbody disc spacer posteriorly causing mild spinal canal stenosis. Electronically Signed: Juan Luis Vásquez MD at 18:31 EDT , Chest CT 05/22/24 19:20 IMPRESSION: Large hiatal hernia with no evidence of esophageal perforation. Electronically Signed: Juan Luis Vásquez MD at 19:59 EDT , ADDENDUM: 05/22/242052 IMPRESSION: Large hiatal hernia with no evidence of esophageal perforation. N.B. : Rebecca Clinton RN, confirmed on 05/22/2024 20:46:27 (ET) that the healthcare facility has received the radiology report. Electronically Signed: Juan Luis Vásquez MD at 19:59 EDT , Discharge Plan Triage Chief Complaint: Abd Pain ED Provider: Bentley Walker Dx/Rx/DC Orders Instructions: ED Hiatal Hernia Prescriptions: New sucralfate [Carafate] 100 mg/mL suspension 10 ml PO BID Qty: 300 0RF No Action losartan-hydrochlorothiazide 100-12.5 mg tablet 1 tab PO QDAY meloxicam 15 mg tablet 15 mg PO QDAY cholecalciferol (vitamin D3) 50 mcg (2,000 unit) capsule 50 mcg PO QDAY fluticasone propionate 50 mcg/actuation spray,suspension 2 spray intranasal QDAY duloxetine 30 mg capsule,delayed release(DR/EC) 30 mg PO QDAY amoxicillin-pot clavulanate 875-125 mg tablet 1 tab PO Q12H Qty: 14 0RF amlodipine 10 MG tablet 10 mg PO DAILY bupropion HCl 300 MG tablet extended release 24 hr 300 mg PO DAILY omeprazole 20 mg capsule,delayed release(DR/EC) 20 mg PO DAILY Primary Care Provider: Juan Luis Cheung Referrals: Juan Luis Cheung MD [Primary Care Provider] - Print Language: Greek Disposition Disposition: Home, Self Care Discharge Date/Time: 05/22/24 20:56
[2024-05-22] MEDS: Ondansetron 4 MG/2 ML Vial IV ×2 (16:31→20:30)
[2024-05-22] MEDS: HYDROmorphone 0.5 MG/0.5 ML SYRINGE IV ×2 (16:32→20:30)
[2024-05-22] MEDS: 0.9% Normal Saline (1000mL) 1,000 ML 999 ML IV (16:32)
[2024-05-22 16:45] LABS: Absolute Lymphocyte Count 1.43 X10^3/uL (0.83-4.51); Absolute Neutrophil Count 3.1 X10^3/uL (2.0-7.7); Basophil# 0.02 X10^3/uL; Basophil% 0.4 % (0-1); Eosinophil# 0.11 X10^3/uL; Eosinophils% 2.1 % (0-5); Hemoglobin 13.6 g/dL (12.0-15.0); Lymphocyte # 1.43 X10^3/ul (0.83-4.51); Lymphocyte % 27.9 % (19-41); Mean Corp Hgb Conc 33.2 g/dL (32-36); Mean Corpuscular Hgb 29.1 pg (27.0-32.0); Mean Corpuscular Volume 87.6 fL (81-99); Monocyte# 0.42 X10^3/uL; Monocyte% 8.2 % (0-10); NRBC Flagged by Analyzer 0 % (0-5); Neutrophil # 3.13 X10^3/uL (2.7-7.7); Neutrophil % 61.2 % (47-70); Platelet Count 279 K/mm3 (150-450); RBC Distribution Width CV 14.7 % (11.6-14.6); RBC Distribution Width SD 47.1 fl (35.1-43.9); Red Blood Count 4.68 M/mm3 (4.2-5.4); White Blood Count 5.1 K/mm3 (4.4-11.0)
[2024-05-22 16:47] LABS: Bacteria 0 SEEN /hpf (None Seen); Mucous, Urine 0 SEEN /hpf (<or=2+); Red Blood Cells-Urine 0 SEEN /hpf (0-5); Squamous Epithelial Cells - UA 0 SEEN /hpf (5-10); White Blood Cells 0 SEEN /hpf (0-5)
[2024-05-22 16:55] LABS: ALB/GLOB Ratio 0.8 RATIO (0.9-2.4); AST(SGOT) 38 U/L (15-37); Alanine Aminotransfer ALT/SGPT 35 U/L (13-56); Albumin, Serum 3.7 g/dL (3.2-5.0); Alkaline Phosphatase 102 U/L (45-117); Anion Gap 7 (5-15); BUN 12 mg/dL (7-18); BUN/Creat Ratio 13.7 RATIO (10-20); Calcium,Total 9.1 mg/dL (8.5-10.1); Chloride 105 mmol/L (98-107); Creatinine, Serum 0.87 mg/dL (0.55-1.02); EST Glomerular Filtration Rate 70 mL/min (>60); Est Glom Filt Rate - Afr Amer 84 mL/min (>60); Estimated Creatinine Clearance 72.86 ml/min; Globulin 4.4 g/dL (2.2-4.2); Glucose 118 mg/dL (74-106); Lipase 21 U/L (13-75); Potassium 3.3 mmol/L (3.5-5.1); Protein, Total 8.1 g/dL (6.4-8.2); Sodium Level 139 mmol/L (136-145)
[2024-05-22 16:57] LABS: Color, Urine Yellow (Yellow); Glucose, Dipstick Normal (Normal); Ketone-Dipstick Negative (Negative); Leukocyte Esterase-Dipstick Negative /ul (Negative); Nitrite-Dipstick Negative (Negative); Occult Blood-Urine 10 /ul (Negative); Protein-Dipstick Negative (Negative); Urine Bilirubin Dipstick Negative (Negative); Urine Clarity Clear (Clear); Urine Urobilinogen Normal (Normal)
[2024-05-22 17:13] VITALS: PULSE 92; RESP 18; TEMP 37.1; O2SAT 91
--- NOTE | 2024-05-22 17:17 | CT_ITS ---
INDICATION: epigastric pain EXAMINATION: CT Abdomen And Pelvis W/ Contrast Injection TECHNIQUE: Helically acquired images were obtained of the abdomen and pelvis after IV contrast. A radiation dose optimization technique was used for this scan. IV Contrast dosage and agent: [id number] Oral contrast: None. COMPARISON: None. FINDINGS: Visualized lung bases: Unremarkable Liver: Unremarkable Gallbladder: Unremarkable Spleen: Unremarkable Pancreas: Unremarkable Adrenal Glands: Unremarkable Kidneys: Unremarkable Vasculature: Mild scattered aortoiliac atherosclerotic calcifications. GI Tract: Large hiatal hernia. Questionable tiny focus of air seen in the lower mediastinum just anterior to the gastroesophageal junction. (Image 6, series 2). Lymphadenopathy: None Peritoneum: No ascites. Bladder: Unremarkable Reproductive organs: Status post hysterectomy. Bones/Soft tissues: There are diffuse degenerative changes of the spine. 2 mm anterolisthesis L4 on L5. Posterior fusion L4-L5. There is migration of the L4-L5 interbody disc spacer posteriorly causing mild spinal canal stenosis. CT/Abdomen/Pelvis W IV Cont ONLY IMPRESSION: Large hiatal hernia. Questionable tiny focus of air seen in the lower mediastinum just anterior to the GE junction. If clinical concern for perforation, recommend CT Esophagram. Posterior fusion L4-L5 with migration of the L4-L5 interbody disc spacer posteriorly causing mild spinal canal stenosis. Electronically Signed: Juan Luis Vásquez MD at 18:31 EDT ,
[2024-05-22 19:00] VITALS: PULSE 70; RESP 18; TEMP 36.3; O2SAT 97
--- NOTE | 2024-05-22 19:20 | CT_ITS ---
ACR Level 3 findings have been noted. An addendum which confirms receipt of the report will follow. INDICATION: Perforation EXAMINATION: CT Esophagram W/O Contrast Injection TECHNIQUE: Helically acquired images were obtained of the chest without IV contrast. A radiation dose optimization technique was used for this scan. COMPARISON: CT abdomen same date. FINDINGS: Lungs: Unremarkable Mediastinum: The cardiomediastinal silhouette is not enlarged. No mediastinal, hilar or axillary adenopathy. Mild aortic arch and coronary artery calcifications. There is a large hiatal hernia with patulous esophagus. No evidence of leak of oral contrast into the mediastinum. Pleura: Unremarkable Bones/Soft tissues: Mild scattered degenerative changes of the visualized spine. Upper abdomen: Refer to CT abdomen pelvis report same date CT/Chest without Contrast IMPRESSION: Large hiatal hernia with no evidence of esophageal perforation. Electronically Signed: Juan Luis Vásquez MD at 19:59 EDT ,
[2024-05-22 20:56] VITALS: BP 140/96; PULSE 70; RESP 18; TEMP 36.5; O2SAT 92
== END 2024-05-22 20:56 | disposition home or self-care (01) ==
PROVIDERS: Emergency Provider Student in an Organized Health Care Education/Training Program; PCP Family Medicine; Visit Provider Student in an Organized Health Care Education/Training Program
DX: K44.9 Diaphragmatic hernia without obstruction or gangrene (principal); R11.0 Nausea; I10 Essential (primary) hypertension; Z79.1 Long term (current) use of non-steroidal anti-inflammatories (NSAID); Z79.899 Other long term (current) drug therapy
CPT/HCPCS: 71250; 74177; 80053; 81001; 83690; 85025; 96361; 96374; 96375; 96376; 99283; J7030; Q9967; A4216; J2405

== ENCOUNTER 2024-12-25 11:43 | Emergency (ER) | payer BC, SELFPAY ==
[2024-12-25 11:44] VITALS: BP 198/118; PULSE 92; RESP 15; TEMP 37.1; O2SAT 100; BMI 30.1
--- NOTE | 2024-12-25 13:13 | EX.ED.DYSGE1 ---
HPI History of Present Illness Chief Complaint: Rash Informant: patient Onset/Context/Timing Onset: Today Context: Gradual Onset Timing: Continuous Current Severity: Mild Maximum Severity: Mild Narrative Narrative: 64-year-old female history of hypertension. States that she cleaned the bathtub with cleaning products. Then she soaked in the tub and Epsom salts. Developed a rash on her lower extremities that started on in the last 24 hours. Says it only itches a little bit. It is really not painful. She denies any fever or chills. Never had this before. She is concerned it may be secondary to the chemicals. She denies any illness. She denies shortness of breath or chest pain. She denies fever. Prior similar symptoms: No Recent Illness/Hospitalization: No PFSH [facility] Medical History Acute frontal sinusitis, unspecified Severe headache Fatigue Hypertension Home Medications ?Medication ?Instructions ?Recorded ?Last Taken ?Type amlodipine 10 mg tablet 10 mg PO DAILY 06/16/20 Unknown History bupropion HCl 300 mg 24 hr tablet, 300 mg PO DAILY 06/16/20 Unknown History extended release omeprazole 20 mg capsule,delayed 20 mg PO DAILY 07/24/21 Unknown History release amoxicillin 875 mg-potassium 1 tab PO Q12H #14 tabs 04/27/24 Unknown Rx clavulanate 125 mg tablet cholecalciferol (vitamin D3) 50 50 mcg PO QDAY 04/27/24 Unknown History mcg (2,000 unit) capsule duloxetine 30 mg capsule,delayed 30 mg PO QDAY 04/27/24 Unknown History release fluticasone propionate 50 2 spray intranasal QDAY 04/27/24 Unknown History mcg/actuation nasal spray,suspension losartan 100 1 tab PO QDAY 04/27/24 Unknown History mg-hydrochlorothiazide 12.5 mg tablet meloxicam 15 mg tablet 15 mg PO QDAY 04/27/24 Unknown History sucralfate 100 mg/mL oral 10 ml PO BID #300 mL 05/22/24 Unknown Rx suspension (Carafate) Allergy/AdvReac Type Severity Reaction Status Date / Time latex Allergy Mild Rash Verified 12/25/24 11:44 morphine Allergy Itching Verified 12/25/24 11:44 paroxetine (From Paxil) Allergy Unknown Verified 12/25/24 11:44 Tetracyclines Allergy Unknown Verified 12/25/24 11:44 Family History Other Diabetes Hypertension Surgical History H/O wrist surgery History of back surgery H/O section History of repair of hiatal hernia Hx of tonsillectomy Hx of cholecystectomy History of hysterectomy Social History Smoking Status: Never smoker alcohol intake: never ROS ROS ED ROS Narrative Rash bilateral lower extremities. Constitutional Constitutional ED: Denies chills or fever(s) Eyes Eyes: Denies blurry vision ENT ENT ED: Denies ear pain Cardiovascular Cardiovascular: Denies chest pain Respiratory/Chest Respiratory/Chest: Denies cough or dyspnea Gastrointestinal Gastrointestinal: Denies abdominal pain, diarrhea or vomiting Genitourinary Genitourinary ED: Denies dysuria or hematuria Musculoskeletal Musculoskeletal: Denies arthralgias or back pain Integumentary Reports rash; Denies abscess or Abrasions Neurologic Neurologic: Denies headache(s) Psychiatric Psychiatric: Denies anxiety Endocrine Endocrinology: Denies cold intolerance Hematologic/Lymphatic Hematologic/Lymphatic: Reports none Allergic/Immunologic Allergic/Immunologic ED: Denies mouth swelling, tongue swelling or urticaria EXAM Physical Exam Narrative Exam Narrative: Well-appearing 64-year-old female. Vital signs stable and her blood pressure elevated 198/118. She history of hypertension. Pulse ox 100% on room air no signs hypoxia. No distress. H EENT exam unremarkable. Moist mucous membranes. Pupils round reactive light. Neck nontender no JVD. Lungs clear to auscultation bilaterally. Heart regular rate and rhythm rate about 90 no murmur. Chest wall ribs nontender. Abdomen soft nontender, nondistended normal bowel sounds without peritoneal signs. Moving all 4 extremities. Neurovascularly intact. 5 out of 5 edge worker strength. Dorsi plantarflexion intact. No edema. No cords. Nontender. She has a rash on both lower extremities lower shins red. Does not sterling. Petechiae appropriate. There is no vesicles. No pustules. Calves are nontender. No cords. It is worse on the right lower extremity than the left. It does not go up the leg it does not go to the knees or above. There is no inguinal lymphadenopathy. Is not tender or shiny like cellulitis. This looks like a secondary chemical reaction. There is no sloughing of skin. No pustules. Back nontender. There is no rash on the chest, abdomen or back. Neurologically she is awake and alert. Const Vital Signs: 12/25/24 11:44 Temperature 98.8 F Temperature Source Oral Pulse Rate 92 Respiratory Rate 15 Blood Pressure 198/118 H Blood Pressure Mean 144 Pulse Ox 100 Oxygen Delivery Method Room Air Positive well nourished and well developed; Negative for cachectic, contractures or unkempt General Appearance ED: well developed and NAD; Negative for unkempt, cachectic, contractures, cyanotic, diaphoretic or pallor Nutritional Appearance: Negative for cachectic HEENT Reports moist mucous membranes Negative for trauma or tenderness Eyes PERRL and EOMs intact bilaterally General Eye ED: Negative for pale conjunctiva or scleral icterus Neck no lymphadenopathy, supple and no JVD General: Negative for tenderness Lymph Lymphatic: Negative for other Chest Wall inspection of chest normal and palpation of chest normal Resp normal respiratory effort and clear to auscultation bilaterally Effort and Inspection: Negative for retractions Auscultation: Negative for rales, rhonchi or wheezes Cardio regular rate, regular rhythm, S1 normal heart sound, S2 normal heart sound and no murmurs Rate: Negative for bradycardia GI normal to inspection, nondistended, normoactive bowel sounds, non-tender, non-distended and no masses Palpation: soft; Negative for tender, guarding or rebound tenderness present Back/Spine no CVA tenderness General Back: Negative for CVA tenderness Cervical Spine: Negative for cervical spine tenderness Thoracic Spine / Upper Back: Negative for thoracic spinal tenderness or paraspinal muscle tenderness Lumbar Spine / Lower Back: Negative for lumbar spinal tenderness Extremity Negative for normal to inspection Extremity Narrative: Rash bilateral lower extremities more so on the right. Anterior palacios just above the ankle. No lymphangitic streaking. Nontender. No edema or cords. No pustules or vesicles. Consistent with either an allergic reaction or a chemical irritation. No inguinal lymphadenopathy. Does not look like cellulitis. Does not look like DVT or CHF. General Extremety ED: Negative for edema or tenderness General Extremity: Negative for edema Neuro oriented x3 and CN's II-XII intact bilaterally Sensorium / Orientation: alert; Negative for orientation impaired, lethargic or stuporous Motor Exam: strength 5/5 throughout Psych mental status grossly normal Appearance: Negative for unkempt Skin No no rashes or lesions noted, no wounds and skin turgor normal General Skin Exam: Negative for jaundice or pallor Lesions: No lesion noted Rashes: rashes noted Trauma: Negative for abrasion Wounds: Negative for wounds noted MDM MDM MDM Narrative Medical decision making narrative: 64-year-old patient is either allergic reaction or chemical irritation. She recently cleaned History & Record Review Discussion w/independent historian: Patient Additional record(s) reviewed:: Prior inpatient record, Prior outpatient record, Prior ED visit and Prior labs Discharge Plan Triage Chief Complaint: Rash ED Provider: Uche Kuhn Dx/Rx/DC Orders Clinical Impression: Rash Instructions: Nonspecific Skin Rash Prescriptions: No Action losartan-hydrochlorothiazide 100-12.5 mg tablet 1 tab PO QDAY meloxicam 15 mg tablet 15 mg PO QDAY cholecalciferol (vitamin D3) 50 mcg (2,000 unit) capsule 50 mcg PO QDAY fluticasone propionate 50 mcg/actuation spray,suspension 2 spray intranasal QDAY duloxetine 30 mg capsule,delayed release(DR/EC) 30 mg PO QDAY amoxicillin-pot clavulanate 875-125 mg tablet 1 tab PO Q12H Qty: 14 0RF amlodipine 10 MG tablet 10 mg PO DAILY bupropion HCl 300 MG tablet extended release 24 hr 300 mg PO DAILY omeprazole 20 mg capsule,delayed release(DR/EC) 20 mg PO DAILY sucralfate [Carafate] 100 mg/mL suspension 10 ml PO BID Qty: 300 0RF Primary Care Provider: Juan Luis Cheung Referrals: Juan Luis Cheung MD [Primary Care Provider] - 3-5 Days if not improving Activity Restrictions/Additional Instructions: Rash is consistent with a chemical irritation secondary to the cleaning product used on your bathtub. Could also be an allergic reaction. Does not look like it is infected. Benadryl twice a day. 25 to 50 mg each time. It may make you sleepy. Hydrocortisone cream to the rash. This should progressively get better if not follow-up with Dr. Majano if a lot worse or you are feeling worse or develop a fever or the rash is getting a lot worse return to the ER. Print Language: [place] Disposition Disposition: Home, Self Care
[2024-12-25 13:25] VITALS: BP 198/118; PULSE 92; RESP 15; TEMP 37.1; O2SAT 100
== END 2024-12-25 13:32 | disposition home or self-care (01) ==
LOC: ED 13:16
PROVIDERS: Emergency Provider Emergency Medicine; PCP Family Medicine; Visit Provider Emergency Medicine
DX: R21 Rash and other nonspecific skin eruption (principal); I10 Essential (primary) hypertension; Z79.899 Other long term (current) drug therapy
CPT/HCPCS: 99282

== ENCOUNTER 2025-02-22 12:11 | Outpatient (CLI) | payer BC, SELFPAY ==
[2025-02-22 16:02] LABS: Cholesterol 169 mg/dL (<=200); High Density Lipoprotein 51 mg/dL; Low Density Lipoprotein Calc. 102 mg/dL; Triglycerides 78 mg/dL; Very Low Density Lipoprotein 16 mg/dL (5-40); cholesterol:hdl ratio screen 3.29
== END 2025-02-22 23:59 | disposition home or self-care (01) ==
LOC: MFPLAB 12:11
PROVIDERS: PCP Family Medicine; Referring Provider Family Medicine; Visit Provider Family Medicine
DX: I10 Essential (primary) hypertension (principal)
CPT/HCPCS: 36415; 80061

== ENCOUNTER 2025-05-01 01:10 | Emergency (ER) | payer BC, SELFPAY ==
[2025-05-01 01:11] VITALS: BP 151/98; PULSE 95; RESP 18; TEMP 37.1; O2SAT 98; BMI 29.7
--- NOTE | 2025-05-01 01:48 | EDS_ITS ---
HPI History of Present Illness HPI Narrative: Patient presents with injury to her left hand that occurred today. Patient states she was walking when she slipped and fell. Patient states she hit her left hand on a car when she fell. Patient denies any head injury or loss of consciousness. Patient describes the pain as aching, burning, and stabbing. Patient states that ice made her pain worse. Patient denies any paresthesias or weakness. Patient denies any head injury or loss of consciousness. Patient denies any other injuries. Chief Complaint: Upper Extremity Injury Informant: patient Occured/Mechanism Mechanism/Context: Yes fall Onset/Context/Timing Onset: Today Context: Sudden Onset Timing: Continuous Quality of Pain: Aching, Burning and Stabbing Location: Left hand Worsened by: Ice, movement Relieved by: Nothing Associated Symptoms Associated Symptoms: Negative for Parasthesia, Weakness or Loss of Funtion [facility] Medical History (Updated 05/01/25 @ 04:[address] Barney Dockery, DO) Acute frontal sinusitis, unspecified Severe headache Fatigue Hypertension Home Medications ?Medication ?Instructions ?Recorded ?Last Taken ?Type amlodipine 10 mg tablet 10 mg PO DAILY 06/16/20 Unkn own History bupropion HCl 300 mg 24 hr tablet, 300 mg PO DAILY 08/26 Unknown History extended release omeprazole 20 mg capsule,delayed 20 mg PO DAILY Unknown History release cholecalciferol (vitamin D3) 50 50 mcg PO QDAY 4 Unknown History mcg (2,000 unit) capsule duloxetine 30 mg capsule,delayed 30 mg PO QDAY 4 Unknown History release fluticasone propionate 50 2 spray intranasal QDAY 04/08 11/30 Unknown History mcg/actuation nasal spray,suspension losartan 100 1 tab PO QDAY 04/27/24 Unkno wn History mg-hydrochlorothiazide 12.5 mg tablet hydrocodone-acetaminophen 5-325mg 1 tab PO Q6H PRN PRN Pain 3 days 05/01/25 Unknown Rx 5mg-325mg #10 TABLETS Allergy/AdvReac Type Severity Reaction Status Date / Time latex Allergy Mild Rash Verified 05/01/25 01:11 morphine Allergy Itching Verified 05/01/25 01:11 paroxetine (From Paxil) Allergy Unknown Verified 05/01/25 01:11 Tetracyclines Allergy Unknown Verified 05/01/25 01:11 Family History Other Diabetes Hypertension Surgical History (Updated 05/01/25 @ 01:[address] Barney Dockery DO) History of Azul fundoplication Hx of cardiac catheterization H/O wrist surgery History of back surgery H/O section History of repair of hiatal hernia Hx of tonsillectomy Hx of cholecystectomy History of hysterectomy Social History (Updated 05/01/25 @ 01:[address] Barney Dockery DO) Smoking Status: Former smoker alcohol intake: current alcohol intake frequency: a few times a month substance use type: marijuana ROS ROS ED Constitutional Constitutional ED: Denies chills or fever(s) Eyes Eyes: Denies blurry vision or change in vision ENT ENT ED: Denies rhinorrhea or sore throat Cardiovascular Cardiovascular: Denies chest pain or palpitations Respiratory/Chest Respiratory/Chest: Reports cough and sputum; Denies dyspnea Gastrointestinal Gastrointestinal: Denies nausea or vomiting Genitourinary Genitourinary ED: Denies dysuria or hematuria Musculoskeletal Musculoskeletal: Reports back pain; Denies neck pain Integumentary Denies abscess or rash Neurologic Neurologic: Denies headache(s) or weakness Allergic/Immunologic Allergic/Immunologic ED: Denies mouth swelling or urticaria EXAM Physical Exam Const Vital Signs: 05/01/25 01:11 Temperature 98.7 F Temperature Source Oral Pulse Rate 95 Respiratory Rate 18 Blood Pressure 151/98 H Blood Pressure Mean 115 Pulse Ox 98 Oxygen Delivery Method Room Air Positive well nourished and well developed General Appearance ED: well developed and NAD HEENT Reports moist mucous membranes Neck full ROM and supple Extremity Extremity Narrative: There is tenderness, edema, and ecchymosis over the distal 2nd and 3rd metacarpals and MCP joints. There is no obvious deformity noted. Range of motion was limited in all motions of the 2nd and 3rd MP joints secondary to pain. Sensation was intact to light touch in the radial, median, and ulnar areas. Strength is 5/5 in the radial, median, and ulnar areas. Radial pulses are equal bilaterally. Neuro oriented x3, CN's II-XII intact bilaterally, moves all extremities, no focal motor deficits and no sensory deficits noted Sensorium / Orientation: alert Motor Exam: strength 5/5 throughout Psych mental status grossly normal MDM MDM MDM Narrative Medical decision making narrative: Differential diagnosis includes fracture, sprain, and contusion. X-rays of the left hand will be obtained to assess for fracture. Radiography Diagnostic Testing: X-rays of the left hand were obtained. There are 3 views. On my independent interpretation, there is a fracture of the distal second metacarpal. There is no intra-articular involvement. There is some volar angulation of the distal fragment. Radiologist also interpreted the x-ray and agrees. Treatment and Re-Evaluation Narrative: Patient was advised of her findings. Patient was given a dose of Tofte here. Patient was instructed to ice and elevate the left hand. Patient was placed in a well-padded custom made volar splint. Patient was instructed to follow-up with her hand surgeon at [facility] in 3 to 5 days. Patient understood and was agreeable with the plan. All questions were answered. Procedures Upper Extremity Splints Upper Extremity Splint: Orthoglass (3 inch) and Volar Splint Fabrication: Fabricated Location: Left Discharge Plan Triage Chief Complaint: Upper Extremity Injury ED Provider: Barney Dockery Dx/Rx/DC Orders Clinical Impression: Fracture of second metacarpal bone of left hand, Fall Instructions: ED Closed Hand Fracture (Adult) Prescriptions: New hydrocodone-acetaminophen 5-325 mg tablet 1 tab PO Q6H PRN PRN (Reason: Pain) 3 Days Qty: 10 0RF No Action losartan-hydrochlorothiazide 100-12.5 mg tablet 1 tab PO QDAY cholecalciferol (vitamin D3) 50 mcg (2,000 unit) capsule 50 mcg PO QDAY fluticasone propionate 50 mcg/actuation spray,suspension 2 spray intranasal QDAY duloxetine 30 mg capsule,delayed release(DR/EC) 30 mg PO QDAY amlodipine 10 MG tablet 10 mg PO DAILY bupropion HCl 300 MG tablet extended release 24 hr 300 mg PO DAILY omeprazole 20 mg capsule,delayed release(DR/EC) 20 mg PO DAILY Primary Care Provider: Juan Luis Cheung Referrals: Juan Luis Cheung MD [Primary Care Provider] - Hermann España MD [Non-Staff] - 3-5 Days Print Language: Greenlandic Disposition Disposition: Home, Self Care
--- NOTE | 2025-05-01 02:10 | RAD_ITS ---
PROCEDURE: HAND MIN 3 VIEWS 05/01/2025 REASON FOR EXAM: INJURY/PAIN TECHNIQUE: HAND MIN 3 VIEWS COMPARISON: 12/03/2022. FINDINGS: Acute displaced angulated fracture of the neck of the 2nd metacarpal bone. Narrowed radiocarpal articulation. Narrowing of the radioulnar joint. Postsurgical changes status post multiple carpal bone fusion. Normal carpal articulations Degenerative changes of the carpometacarpal articulation of the thumb. Normal second through fifth carpometacarpal joints. 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 Normal interphalangeal joint of the thumb. Normal proximal and distal phalanges of the thumb. Normal metacarpophalangeal joints of the second through fifth fingers. Normal proximal and distal interphalangeal joints of the second through fifth fingers. Normal phalanges of the second through fifth fingers. RAD/Hand Min 3 Views IMPRESSION: Acute displaced angulated fracture of the neck of the 2nd metacarpal bone. Reading Location: [facility]
--- OUTSIDE RECORDS SUMMARY | 2025-05-01 02:26 | XMS RPT_ITS | CCD ---
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 Julisa Cheung MD Primary Care Provider Dr. Uche Kuhn MD Attending Provider [phone] Dr. Uche Kuhn MD Emergency Provider Dr. Julisa Cheung MD Attending Provider [phone] Dr. Julisa Cheung MD Referring Provider Bentley Walker Attending Unavailable Julisa Cheung Primary Care Unavailable Enrique Montenegro Attending Unavailable Julisa Cheung Primary Care Unavailable Uche Kuhn Attending Unavailable Julisa Cheung Primary Care Unavailable Julisa Cheung Primary Care Unavailable Julisa Cheung Referring Unavailable Tripp Tamez Attending Unavailable Julisa Cheung Attending Unavailable Julisa Cheung Referring Unavailable Julisa Cheung Primary Care Unavailable MITRA SAAVEDRA Attending Unavailable JULISA CHEUNG Primary Care UnavailMITRA Jeff Attending Unavailable MITRA SAAVEDRA Referring Unavailable JULISA CHEUNG B Primary Care UnavailSteven Bourgeois Attending Unavailable Steven PEOPLES Referring Unavailable RANNEY, CHRISTOPHER B Primary Care Unavailabl e KERI, MITRA Referring Unavailable [facility], JORGE LER B Primary Care Unavailabl e KERI, MITRA Attending Unavailable [facility], [facility] B Primary Care Unavailabl e APRIL MYERS Attending Unavailable [facility], [facility] HILL[facility] B Primary Care Unavailabl e KERI, MITRA Referring Unavailable [facility], [facility] HILLER B Primary Care Unavailabl e KERI, MITRA Admitting Unavailable KERI, MITRA Attending Unavailable KERI, MITRA Referring Unavailable RANCONNOQUENESSING, CHRISTOPHER B Primary Care Unavailabl e KERI, MITRA Referring Un[facility] Primary Care Unavailabl e KERI, MITRA Attending Unavailable [facility] Primary Care Unavailabl e KERI, MITRA Admitting Unavailable KERI, MITRA Attending Unavailable KERI, MITRA Referring Unavailable RANCONNOQUENESSING, CHRISTOPHER B Primary Care Unavailabl e Allergies Allergy Classification Reported Allergen(s) Allergy Type Date of Onset Reaction(s) Facility Latex (5 sources) natural latex rubber Substance Allergy 9 [facility] Opioid Agonists (5 sources) Morphine Drug Allergy 0 Itching [facility] Tetracyclines (antibiotic) (5 sources) Tetracycline Drug Allergy 6 Vomiting [facility] (20 sources) Morphine; Translations: [MORPHINE] Drug Allergy 0 Itching [facility] (20 sources) natural latex rubber; Translations: [LATEX, NATURAL RUBBER] Drug Intolerance 9 [facility] (20 sources) Tetracycline; Translations: [TETRACYCLINE] Drug Allergy 6 Vomiting [facility] (20 sources) Kiwi; Translations: [KIWI] Drug Allergy 9 Anaphylaxis [facility] (20 sources) PARoxetine; Translations: [PAROXETINE] Drug Allergy 7 Unknown [facility] (6 sources) Tetracyclines; Translations: [Tetracyclines] Allergy to substance 1 Unknown [facility] (1 source) Latex Allergy to substance 5 Rash [facility] (1 source) Latex Drug allergy (disorder) 5 [facility] (1 source) Morphine Drug Allergy 5 [facility] (1 source) PARoxetine Drug Allergy 5 [facility] Medications Current Medications Medication Drug Class(es) Dates Sig (Normalized) Sig (Original) amLODIPine 10 mg oral tablet (20 sources) Dihydropyridine Calcium Channel Sarah Start: 06-16-2020 take 1 tablet by mouth once daily amLODIPine (NORVASC) 10 mg tablet Take 1 tablet by mouth once daily. 02/05/2025 Active amlodipine besyl ate (AMLODIPINE ORAL) Take by mouth. 0 Active Comment on above: Take by mouth. Take 10 mg by mouth once daily. amoxicillin 875 mg / clavulanate 125 mg oral tablet (6 sources) Penicillin-class Antibacterial Start: 04-27-2024 Amoxicillin-Pot Clavulanate 875-125 mg tablet Active 1 {tbl} PO Q12H April 27, 2024 12:00am Start: 07-24-2021 End: 2021 Amoxicillin-Pot Clavulanate (Augmentin) 875-125 mg tablet Discontinued 1 {tbl} PO Q12H 26 08July 24, 2021 12:00am August 02, 2021 12:00am 2021 12:01am bisacodyl 5 mg delayed release oral tablet (20 sources) Stimulant Laxative Start: 04-29-2021 Bisacodyl ( DULCOLAX) 5 mg tab Indications: Blood in stool Use as directed for Miralax / Gatorade Bowel Prep Kit 4 tablet 04/29/2021 Active Start: 03-03-2021 Bisacodyl (DUL COLAX) 5 mg tab Indications: Blood in stool Use as directed for Miralax / Gatorade Bowel Prep Kit 4 tablet 0 03/03/2021 Active Comment on above: Use as directed for Miralax / Gatorade Bowel Prep Kit 24 hr buPROPion hydrochloride 300 mg extended release oral tablet (20 sources) Aminoketone Start: 0 take 1 tablet by mouth once daily Bupropion Hcl 300 MG tablet extended release 24 hr Active 300 mg PO DAILY June 16, 2020 12:00am bupropion HCl (W ELLBUTRIN ORAL) Take by mouth. 0 Active Comment on above: Take by mouth. Take 300 mg by mouth once daily. Cholecalciferol (20 sources) Vitamin D Start: 04-27-2024 take 1 capsule by mouth once daily Cholecalciferol (Vitamin D3) 50 mcg (2,000 unit) capsule Active 50 ug PO daily April 27, 2024 12:00am Start: 04-16-2021 take 1 capsule by mo uth once daily Cholecalciferol, Vitamin D3, 50 mcg (2,000 unit) cap Take 1 capsule by mouth once daily. 04/16/2021 Active Comment on above: Take 1 capsule by mo [facility] once daily. citalopram 40 mg oral tablet (20 sources) Serotonin Reuptake Inhibitor Start: 07-25-20 End: 04-27-20 citalopram hydrobromide(CELEXA 40 MG TAB) Take one(1) tablet daily. 0 07/25/2008 Active Comment on above: Take one(1) tablet d aily. DULoxetine 30 mg delayed release oral capsule (19 sources) Serotonin and Norepinephrine Reuptake Inhibitor Start: 04-27-20 take 1 capsule by mouth once DULoxetine (CYMBALTA) 30 mg capsule Take 1 capsule by mouth every afternoon. 05/28/2024 Active fexofenadine hydrochloride 180 mg oral tablet (20 sources) Histamine-1 Receptor Antagonist Start: 02-09-20 take 1 tablet by mouth once daily fexofenadine (BETTY) 180 mg tablet Take 1 tablet by mouth once daily. 02/08/2025 Active fexofenadine HCl (BETTY ORAL) Take by mouth once daily. Active fexofenadine HCl (BETTY ORAL) Take by mouth once daily. 0 Active Comment on above: Take by mouth once d aily. fluticasone propionate 0.05 mg/actuat metered dose nasal spray (20 sources) Corticosteroid Start: 04-27-2024 Fluticasone Propionate 50 mcg/actuation spray,suspension Active 2 NMA INTRANASAL daily April 27, 2024 12:00am Start: 01-14-2021 take 2 spray(s) nasa l route once daily fluticasone (FLONASE) 50 mcg/actuation nasal spray Use 2 (TWO) sprays IN EACH NOSTRIL DAILY DIRECTED 01/14/2021 Active Comment on above: Use 2 (TWO) sprays I N EACH NOSTRIL DAILY DIRECTED Gatorade Sports Drink (20 sources) Start: 04-29-2021 Gatorade Sports Drink Indications: Blood in stool Use as directed for Miralax / Gatorade Bowel Prep Kit 64 oz 04/29/2021 Active Start: 04-29-2021 Gatorade Sport s Drink Indications: Blood in stool Use as directed for Miralax / Gatorade Bowel Prep Kit 64 oz 0 04/29/2021 Active Start: 03-03-2021 Gatorade Sport s Drink Indications: Blood in stool Use as directed for Miralax / Gatorade Bowel Prep Kit 64 oz 0 03/03/2021 Active Comment on above: Use as directed for Miralax / Gatorade Bowel Prep Kit hydroCHLOROthiazide 12.5 mg / losartan potassium 100 mg oral tablet (20 sources) Thiazide Diuretic, Angiotensin 2 Receptor Sarah Start: 5 take 1 tablet by mouth once daily losartan-hydro CHLOROthiazide (HYZAAR) 100-12.5 mg per tablet Take 1 tablet by mouth once daily. 03/02/2025 Active Start: 04-27-2024 Losartan-[place] chlorothiazide 100-12.5 mg tablet Active 1 {tbl} PO daily April 27, 2024 12:00am Start: 06-16-2020 End: 07-24-2021 Losartan-Hydrochlorothiazide 1 EACH tablet Discontinued 1 NMA PO DAILY June 16, 2020 12:00am July 24, 2021 1:52pm Start: 06-16-2020 End: 07-24-2021 Losartan-Hydrochlorothiazide Discontinued 1 EACH PO DAILY June 15, 2020 11:00pm July 24, 2021 12:52pm take 1 tablet by gamaliel th once daily losartan-hydroCHLOROthiazide (HYZAAR) 10 0-25 mg per tablet Take 1 tablet by mouth once daily. Active Comment on above: Take 1 tablet by gamaliel th once daily. meloxicam 15 mg oral tablet (1 source) Nonsteroidal Anti-inflammatory Drug Start: 4 take 1 tablet by mouth once daily Meloxicam 15 mg tablet Active 15 mg PO daily April 27, 2024 12:00am 24 hr metoprolol succinate 100 mg extended release oral tablet (20 sources) beta-Adrenergic Sarah Start: 1 take 1 tablet by mouth twice daily METOPROLOL SR 100 MG 24 HR TAB Take 100 mg by mouth two times a day. 0 04/07/2021 Active Start: 06-16-2020 End: 04-27-2024 take 1 tablet by mouth twice daily Metoprolol Tartrate 100 MG tablet Discontinued 100 mg PO TWICE A DAY June 16, 2020 12:00am April 27, 2024 3:58pm Start: 07-25-2008 METOPROLOL SR 100 MG 24 HR TAB Take one(1) tablet daily. 0 07/25/2008 Active Comment on above: Take one(1) tablet d aily. Take 100 mg by mouth twice daily. omeprazole 20 mg delayed release oral capsule (20 sources) Proton Pump Inhibitor Start: 06-16-2020 End: 07-24-2021 take 1 capsule by mouth once daily Omeprazole 20 mg capsule,delayed release(DR/EC) Active 20 mg PO DAILY July 24, 2021 1:52pm Start: 07-25-2008 omeprazole(BERE LOSEC 10 MG CAP) Take one(1) capsule daily. 0 07/25/2008 Active take 1 tablet by gamaliel th once daily Omeprazole Magnesium (PRILOSEC OTC) 20 mg tablet Take 20 mg by mouth once daily. Active Comment on above: Take one(1) capsule daily. ondansetron 4 mg oral tablet (4 sources) Serotonin-3 Receptor Antagonist Start: End: take 1 tablet by mouth every six hours as needed ondansetron (ZOFRAN) 4 mg tablet Take 1 tablet by mouth every 6 hours as needed. 12 tablet 1 04/04/2025 5:01 PM EDT 04/04/2025 05/04/2025 Active pantoprazole 40 mg delayed release oral tablet (20 sources) Proton Pump Inhibitor Start: End: take 1 tablet by mouth once daily in the evening pantoprazole DR (PROTONIX) 40 mg tablet Take 1 tablet by mouth once daily. 30 tablet 2 04/04/2025 5:01 PM EDT 04/04/2025 07/03/2025 Active Start: 12-06-2024 End: 03-06-2025 take 1 tablet by mouth once daily pantoprazole DR (PROTONIX) 40 mg tablet Take 1 tablet by mouth once daily. 30 tablet 2 12/06/2024 Active Start: 08-02-2024 End: 04-10-2025 take 1 tablet by mouth twice daily pantoprazole DR (PROTONIX) 40 mg tablet Take 1 tablet by mouth two times a day. 60 tablet 10/12/2024 04/10/2025 Active perflutren lipid microspheres 1.3 mL in NaCl (PF) 0.9% 10 mL injection (DEFINITY) (2 sources) Start: 04-24-2021 End: 07-24-2022 perflutren lipid microspheres 1.3 mL in NaCl (PF) 0.9% 10 mL injection (DEFINITY) polyethylene glycol 3350 58117 mg powder for oral solution (20 sources) Osmotic Laxative Start: 04-29-2021 polyethylene glycol 3350 (MIRALAX, GLYCOLAX) 17 gram/dose powder Indications: Blood in stool Use as directed for Miralax / Gatorade Bowel Prep Kit 238 g 04/29/2021 Active Start: 03-03-2021 polyethylene g lycol 3350 (MIRALAX, GLYCOLAX) 17 gram/dose powder Indications: Blood in stool Use as directed for Miralax / Gatorade Bowel Prep Kit 238 g 0 03/03/2021 Active Comment on above: Use as directed for Miralax / Gatorade Bowel Prep Kit pregabalin 150 mg oral capsule (20 sources) Start: 04-18-2020 End: 07-24-2021 take 1 capsule by mouth twice daily pregabalin (LYRICA) 150 mg capsule Indications: Spinal stenosis of lumbar region without neurogenic claudication Take 1 capsule by mouth twice daily for 30 days. 60 capsule 1 11/17/2020 Active Comment on above: Take 1 capsule by [facility] twice daily for 30 days. Do not start before April 18, 2020. take 1 capsule by [facility] twice a day Take 1 capsule by [facility] twice daily for 30 days. sucralfate 1000 mg oral tablet (15 sources) Aluminum Complex Start: 05-24-2024 take 1 tablet by mouth twice daily sucralfate (CARAFATE) 1 gram tablet TAKE 1 TABLET BY MOUTH TWICE DAILY. FOLLOW SLURRY INSTRUCTIONS. 05/24/2024 Active Start: 05-22-2024 take 1 mL by mouth twice daily Sucralfate (Carafate) 100 mg/mL suspension Active 10 mL PO TWICE A DAY 300 May 22, 2024 12:00am traMADol hydrochloride 50 mg oral tablet (1 source) Opioid Agonist Start: 04-04-2025 End: 04-09-2025 take 1 tablet by mouth every eight hours as needed traMADol (ULTRAM) 50 mg tablet Indications: Gastroesophageal reflux disease without esophagitis Take 1 tablet by mouth every 8 hours as needed for up to 5 days. 10 tablet 04/04/2025 5:01 PM EDT 04/04/2025 04/09/2025 Active Completed/Discontinued Medications Medication Drug Class(es) Dates Sig (Normalized) Sig (Original) acetaminophen 325 mg / HYDROcodone bitartrate 5 mg oral tablet (3 sources) Opioid Agonist Start: 12-03-2022 End: 04-27-2024 Hydrocodone-Acetami nophen 5-325 mg tablet Discontinued 1 {tbl} PO EVERY 6 HOURS NEEDED as needed for Pain 10 December 03, 2022 April 27, 2024 3:57pm Start: 12-03-2022 take 1 tablet by gamaliel th every six hours as needed Hydrocodone-Acetaminophen Active 1 TABLE T PO EVERY 6 HOURS NEEDED 10 December 03, 2022 acetaminophen 325 mg / oxyCODONE hydrochloride 5 mg oral tablet (5 sources) Opioid Agonist Start: 06-19-2021 End: 07-24-2021 Oxycodone-Acetaminophen (Percocet) 5-325 mg Tablet Discontinued 1 {tbl} PO EVERY 6 HOURS as needed for spasms June 19, 2021 12:00am July 24, 2021 1:52pm amoxicillin 500 mg oral capsule (3 sources) Penicillin-class Antibacterial Start: 07-21-2022 End: 07-31-2022 take 2 capsules by mouth twice daily Amoxicillin 500 mg capsule Discontinued 1000 mg PO TWICE A DAY 40 July 21, 2022 12:00am July 30, 2022 12:00am July 31, 2022 12:06am Start: 07-21-2022 End: 07-31-2022 take 1000 mg by mouth twice daily Amoxicillin Discontinued 1000 MG PO TWICE A DAY 40 July 20, 2022 11:00pm July 30, 2022 11:06pm apixaban 5 mg oral tablet (15 sources) Factor Xa Inhibitor apixaban (ELIQUIS) 5 mg tab(s) Take by mouth twice daily. 0 Active Comment on above: Take by mouth twice daily. cyclobenzaprine hydrochloride 5 mg oral tablet (20 sources) Muscle Relaxant Start: 06-19-20 End: 07-24-20 take 1 tablet by mouth three times daily as needed for pain Cyclobenzaprine (Flexeril) 5 mg Tablet Discontinued 5 mg PO THREE TIMES A DAY as needed for Pain June 19, 2021 12:00am July 24, 2021 1:52pm Start: 05-15-2021 take 1 tablet by gamaliel th three times daily as needed for muscle spasms cyclobenzaprine (FLEXERIL) 10 mg tablet Indications: Spondylolisthesis, lumbar region , Acute post-operative pain Take 1 tablet by mouth three times daily as needed for muscle spasm. 90 tablet 05/15/2021 Active Comment on above: Take 1 tablet by gamaliel th three times daily as needed for muscle spasm. dexamethasone phosphate 10 mg/ml injectable solution (1 source) Corticosteroid Start: 09-24-20 End: 09-24-20 dexAMETHasone sodium phosphate 10 mg injection (DECADRON) 24 hr doxazosin 4 mg extended release oral tablet (5 sources) alpha-Adrenergic Sarah Start: 06-16-20 End: 07-24-20 take 1 tablet by mouth once daily Doxazosin 4 MG tablet extended release 24hr Discontinued 4 mg PO DAILY June 16, 2020 12:00am July 24, 2021 1:52pm famotidine 40 mg oral tablet (6 sources) Histamine-2 Receptor Antagonist Start: 12-30-19 take 1 tablet by mouth once daily famotidine (PEPCID) 40 mg tablet Take 40 mg by mouth once daily. 0 12/30/2020 Active Comment on above: Take 40 mg by mouth once daily. iohexol 900 mg IV injection (OMNIPAQUE 300) (1 source) Start: 09-24-20 End: 09-24-20 iohexol 900 mg IV injection (OMNIPAQUE 300) iv contrast (will be provided with radiology test) (1 source) Start: 07-04-20 End: 07-05-20 iv contrast (will be provided with radiology test) Indications: Lumbar spondylosis MRI LSP Inject, intravenously, once for 1 dose. No IV access, insert saline lock prior to the beginning of sedation, infusion, injection of imaging exam. Discontinue saline lock post exam. If Pt. has a central line or IVAD, may access for administration according to line specific nursing protocol. Once exam is complete flush line and de-access according to line specific nursing protocol in the MR contrast administration guidelines link. 1 Each 0 07/04/2020 07/05/2020 Active Comment on above: MRI LSP Inject, intr avenously, once for 1 dose. No IV access, insert saline lock prior to the beginning of sedation, infusion, injection of imaging exam. Discontinue saline lock post exam. If Pt. has a central line or IVAD, may access for administration according to line specific nursing protocol. Once exam is complete flush line and de-access according to line specific nursing protocol in the MR contrast administration guidelines link. 50 ml lidocaine hydrochloride 5 mg/ml injection (2 sources) Antiarrhythmic, Amide Local Anesthetic Start: 09-24-20 End: 09-24-20 lidocaine (PF) 5 mg/mL (0.5 %) 15 mg injection (XYLOCAINE) Start: 09-24-2020 End: 09-24-2020 lidocaine (PF) 20 mg/mL (2 % ) 200 mg injection (XYLOCAINE) Losartan (15 sources) Angiotensin 2 Receptor Sarah losartan potassium (LOSARTAN ORAL) Take by mouth. 0 Active Comment on above: Take by mouth. nabumetone 750 mg oral tablet (20 sources) Nonsteroidal Anti-inflammatory Drug Start: 06-16-20 End: 07-24-20 take 1 tablet by mouth twice daily Nabumetone 750 MG tablet Discontinued 750 mg PO TWICE A DAY June 16, 2020 12:00am July 24, 2021 1:52pm Comment on above: Take 750 mg by mouth twice daily. promethazine hydrochloride 25 mg oral tablet (5 sources) Phenothiazine Start: 06-19-20 End: 07-24-20 21 take 1 tablet by mouth every six hours as needed for nausea Promethazine 25 MG tablet Discontinued 25 mg PO EVERY 6 HOURS NEEDED as needed for Nausea June 19, 2021 12:00am July 24, 2021 1:53pm Problems Active Problems Problem Classification Problem Date Documented Da te Episodic/Chronic E Codes: Fall (3 sources) Fall in home; Translations: [Unspecified fall, initial encounter] 12-03-2022 Episodic Esophageal disorders (20 sources) Gastroesophageal reflux disease; Translations: [Gastro-esophageal reflux disease without esophagitis] Onset: 04-29-2006 Chronic Essential hypertension (20 sources) Hypertensive disorder; Translations: [Essential (primary) hypertension] Onset: 4 04-17-2021 Chronic Fracture of upper limb (3 sources) Closed fracture of fifth metacarpal; Translations: [Unspecified fracture of fifth metacarpal bone, left hand, initial encounter for closed fracture] 12-03-2022 Episodic Gastrointestinal hemorrhage (2 sources) Hematochezia; Translations: [Melena] Episodic Headache; including migraine (5 sources) Headache; Translations: [Severe headache] 07-24-2021 Episodic Malaise and fatigue (5 sources) Fatigue; Translations: [Other fatigue] 07-24-2021 Episodic Nausea and vomiting (1 source) Nausea; Translations: [Nausea] Episodic Nutritional deficiencies (20 sources) Vitamin D deficiency; Translations: [Vitamin D deficiency, unspecified] Onset: 1 08-12-2021 Chronic Other acquired deformities (2 sources) Lumbar spondylolisthesis; Translations: [Spondylolisthesis of lumbar region] Other connective tissue disease (1 source) Pain in left lower limb; Translations: [Pain in left leg] Episodic Other nutritional; endocrine; and metabolic disorders (20 sources) Obese class I; Translations: [Obesity, unspecified] Onset: 0 07-04-2020 Chronic Other nutritional; endocrine; and metabolic disorders (4 sources) Obesity; Translations: [Other obesity due to excess calories] Chronic Other nutritional; endocrine; and metabolic disorders (20 sources) Body mass index 30+ - obesity; Translations: [Body mass index (BMI) 31.0-31.9, adult] Onset: 1 08-12-2021 Chronic Other nutritional; endocrine; and metabolic disorders (1 source) Body mass index (BMI) 30.0-30.9, adult; Translations: [Class 1 obesity with serious comorbidity and body mass index (BMI) of 30.0 to 30.9 in adult, unspecified obesity type] Onset: 5 Chronic Other nutritional; endocrine; and metabolic disorders (1 source) Obesity, unspecified; Translations: [Class 1 obesity with serious comorbidity and body mass index (BMI) of 31.0 to 31.9 in adult, unspecified obesity type] Onset: 4 Chronic Other nutritional; endocrine; and metabolic disorders (1 source) Body mass index (BMI) 31.0-31.9, adult; Translations: [Class 1 obesity with serious comorbidity and body mass index (BMI) of 31.0 to 31.9 in adult, unspecified obesity type] Onset: 4 Chronic Other nutritional; endocrine; and metabolic disorders (11 sources) Obese class I; Translations: [Obesity, Class I, BMI 30-34.9] Onset: 0 07-04-2020 Other skin disorders (1 source) Eruption; Translations: [Rash and other nonspecific skin eruption] 01-02-2025 Episodic Other upper respiratory infections (8 sources) Acute sinusitis; Translations: [Acute sinusitis, unspecified] 07-21-2022 Episodic Phlebitis; thrombophlebitis and thromboembolism (5 sources) Deep venous thrombosis; Translations: [Acute embolism and thrombosis of unspecified deep veins of unspecified lower extremity] 06-17-2020 Episodic Residual codes; unclassified (12 sources) Obstructive sleep apnea syndrome; Translations: [Obstructive sleep apnea (adult) (pediatric)] Onset: 4 09-28-2024 Chronic Residual codes; unclassified (1 source) Obstructive sleep apnea (adult) (pediatric); Translations: [AARON (obstructive sleep apnea)] Onset: 4 Chronic Residual codes; unclassified (5 sources) H/O Spinal surgery; Translations: [Other specified postprocedural states] 07-24-2021 Episodic Residual codes; unclassified (1 source) History of hernia repair; Translations: [Other specified postprocedural states] 04-16-2025 Episodic Spondylosis; intervertebral disc disorders; other back problems (1 source) Lumbar spondylosis; Translations: [Lumbar spondylosis] Chronic Superficial injury; contusion (5 sources) Contusion of chest; Translations: [Contusion of unspecified front wall of thorax, initial encounter] 11-25-2020 Episodic Unclassified (1 source) Post Op Onset: 5 Unclassified (1 source) Class 1 obesity with serious comorbidity and body mass index (BMI) of 31.0 to 31.9 in adult, unspecified obesity type; Translations: [Class 1 obesity with serious comorbidity and body mass index (BMI) of 31.0 to 31.9 in adult, unspecified obesity type] Onset: 5 Unclassified (1 source) Class 1 obesity with serious comorbidity and body mass index (BMI) of 30.0 to 30.9 in adult, unspecified obesity type; Translations: [Class 1 obesity with serious comorbidity and body mass index (BMI) of 30.0 to 30.9 in adult, unspecified obesity type] Onset: Viral infection (5 sources) Viral disease; Translations: [Viral infection, unspecified] 06-19-2021 Episodic Past or Other Problems Problem Classification Problem Date Documented Date Episodic/Chronic Abdominal hernia (20 sources) Paraesophageal hernia; Translations: [Diaphragmatic hernia without obstruction or gangrene] Onset: 08-12-2021 Episodic Abdominal pain (1 source) Unspecified abdominal pain; Translations: [Unspecified abdominal pain] Onset: 06-07-2024 Episodic Administrative/socia l admission (20 sources) Patient encounter status; Translations: [Dietary counseling and surveillance] Onset: 04-24-2021 08-12-2021 Episodic Biliary tract disease (20 sources) Disorder of gallbladder; Translations: [Other specified diseases of gallbladder] Onset: 07-25-2008 07-25-2008 Episodic Open wounds of extremities (2 sources) Laceration of foot; Translations: [Laceration without foreign body, unspecified foot, initial encounter] Onset: 06-03-2024 05-27-2024 Episodic Other acquired deformities (20 sources) Lumbar spondylolisthesis; Translations: [Spondylolisthesis, lumbar region] Onset: 05-07-2021 Episodic Other screening for suspected conditions (not mental disorders or infectious disease) (20 sources) Electrocardiogram abnormal; Translations: [Abnormal electrocardiogram [ECG] [EKG]] Onset: 04-24-2021 04-24-2021 Episodic Other skin disorders (1 source) Rash and other nonspecific skin eruption; Translations: [Rash and other nonspecific skin eruption] Onset: 01-07-2025 Episodic Screening and history of mental health and substance abuse codes (12 sources) Ex-smoker; Translations: [Personal history of nicotine dependence] Onset: 09-28-2024 09-28-2024 Episodic Spondylosis; intervertebral disc disorders; other back problems (20 sources) Lumbar radiculopathy; Translations: [Spinal stenosis of lumbar region] Onset: 08-12-2021 08-12-2021 Episodic Substance-related disorders (12 sources) Marijuana user; Translations: [Cannabis use, unspecified, uncomplicated] Onset: 09-28-2024 09-28-2024 Episodic Results Test Name Value Interpretation Reference Range Facility [facility] 04-29-2025 [facility] Telephone (AGGENS4) FRANCIA GAMA ([id number]) 1960 F Date Time Provider Department 04/29/25 MITRA SAAVEDRA TERIENS4 During your visit today, we recorded the following information about you: Weight 75.8 kg Steven Jurado, GARO 04/29/2025 1:19 PM Signed This is my 3rd call/message to patient to discuss diet advancement s/p re-do Rosenda procedure. I also sent patient a [employer] message asking for a return call. Steven Jennings RN, RN 04/29/2025 3:39 PM Signed Patient returned my call. She is four weeks s/p lap re-do Rosenda AND PEHR procedure on 04/02/25: Swallowing: patient currently not having any difficulty swallowing. Patient states she did get Jell-O stuck 2 weeks ago, but nothing since. Patient tried falguni dora the other day and I did not feel good after that. I reminded patient she is only 4 weeks after a revision surgery and carbonated beverages are not on her diet for another 4 weeks. 24 hour diet recall: Breakfast: Ensure Max, soft egg Lunch: yogurt Dinner: 1/2 ear corn on cob, chicken, 1/2 baked potato We discussed eating smaller more, frequent meals and following the diet since she had revision surgery. I reminded her that chicken, corn and falguni dora are not on her meal plan for another 4 weeks. Patient states she does not have much of an appetite, and you can only have so many shakes. Voiding/color of urine: reports urine is light in color Moving bowels: daily bowel movements for the last 2-3 weeks. Pain rating/use of medications: last taken 2 weeks ago Proton pump inhibitor: patient took herself off the week after surgery, because I am not having any heartburn. Using incentive spirometer: Patient with moist, frequent cough during our call. Patient's granddaughter her pneumonia and now the other grandkids and her daughter are coughing too. I instructed the patient to call her PCP if the cough does not improve in the next 2 days. Patient states she is using the incentive spirometer and can get it to 3,000 ml. Physical activity: walking around the house and neighborhood. OK'd patient to ride a stationary bike Follow up appt confirmation: 08/01/[address] Saavedra Patient is scheduled to RTW on 05/20/25. 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 I don't lift anything >25 lbs. Patient is not sure about when to RTW since they do not have light duty. I suggested we wait a couple of weeks and asked Francia to call me the week before 05/20 and let me know how she is doing. Patient agreed with the plan. Patient has my contact information if she has any questions or concerns before their next appointment. Patient thanked me for letting her know that her phone isn't ringing and going straight to [employer]. Steven Jurado RN Allergies As of Date: 04/29/2025 Noted Allergy Reaction KIWI 08/06/2019 10 - Anaphylaxis LATEX, NATURAL RUBBER 08/06/2019 4 - Hives TETRACYCLINE 04/29/2006 11 - Vomiting PAROXETINE 05/17/2017 16 - Unknown MORPHINE 11/15/2019 9 - Itching Date Reviewed: 04/16/2025 Reviewed by: April Myers APRN.CREW TEAM MEMBER - Fully Assessed Reason for Visit: Follow Up [171] Cmt: After office appointment to discuss diet advancement Prescriptions as of 04/29/2025 - pantoprazole DR (PROTONIX) 40 mg tablet Take 1 tablet by mouth once daily. - ondansetron (ZOFRAN) 4 mg tablet Take 1 tablet by mouth every 6 hours as needed. - fexofenadine (BETTY) 180 mg tablet Take 1 tablet by mouth once daily. - losartan-hydroCHLORO thiazide (HYZAAR) 100-12.5 mg per tablet Take 1 tablet by mouth once daily. - Omeprazole Magnesium (PRILOSEC OTC) 20 mg tablet Take 20 mg by mouth once daily. - amLODIPine (NORVASC) 10 mg tablet Take 1 tablet by mouth once daily. - DULoxetine (CYMBALTA) 30 mg capsule Take 1 capsule by mouth every afternoon. - buPROPion XL (WELLBUTRIN XL) 300 mg 24 hr tablet Take 300 mg by mouth once daily. - Cholecalciferol, Vitamin D3, 50 mcg (2,000 unit) cap Take 1 capsule by mouth once daily. - fluticasone (FLONASE) 50 mcg/actuation nasal spray Use 2 (TWO) sprays IN EACH NOSTRIL DAILY DIRECTED - Gatorade Sports Drink Use as directed for Miralax / Gatorade Bowel Prep Kit Problem List As Of Date 04/29/2025 Noted Resolved Gastroesophageal reflux disease without esophag*04/29/2006 DIS OF GALLBLADDER NEC [K82.8] 07/25/2008 Class 1 obesity [E66.811] 07/04/2020 Essential hypertension, benign [I10] Dietary counseling and surveillance [Z71.3] 04/24/2021 Abnormal EKG [R94.31] 04/24/2021 Spondylolisthesis, lumbar region [M43.16] 05/07/2021 Body mass index 31.0-31.9, adult [Z68.31] 08/12/2021 Chronic bilateral low back pain [M54.50, G89.29]08/12/2021 Gastroesophageal reflux disease with esophagiti* Vitamin D deficiency [E55.9] 08/12/2021 Paraesophageal hernia [K44.9] (more content not included)... Normal [facility] Jose Roberto 04-18-2025 [facility] Telephone (AGGENS4) FRANCIA GAMA ([id number]) 1960 F Date Time Provider Department 04/18/25 MITRA SAAVEDRA4 During your visit today, we recorded the following information about you: Steven Jurado, GARO 04/18/2025 10:37 AM Signed I called patient yesterday and again today and left messages asking for a return call so I can review patient's diet advancement with her. I left my contact information. Steven Jurado RN Allergies As of Date: 04/18/2025 Noted Allergy Reaction KIWI 08/06/2019 10 - Anaphylaxis LATEX, NATURAL RUBBER 08/06/2019 4 - Hives TETRACYCLINE 04/29/2006 11 - Vomiting PAROXETINE 05/17/2017 16 - Unknown MORPHINE 11/15/2019 9 - Itching Date Reviewed: 04/16/2025 Reviewed by: April Myers APRN.CREW TEAM MEMBER - Fully Assessed Reason for Visit: Follow Up [171] Prescriptions as of 04/18/2025 - pantoprazole DR (PROTONIX) 40 mg tablet Take 1 tablet by mouth once daily. - ondansetron (ZOFRAN) 4 mg tablet Take 1 tablet by mouth every 6 hours as needed. - fexofenadine (BETTY) 180 mg tablet Take 1 tablet by mouth once daily. - losartan-hydroCHLORO thiazide (HYZAAR) 100-12.5 mg per tablet Take 1 tablet by mouth once daily. - Omeprazole Magnesium (PRILOSEC OTC) 20 mg tablet Take 20 mg by mouth once daily. - amLODIPine (NORVASC) 10 mg tablet Take 1 tablet by mouth once daily. - DULoxetine (CYMBALTA) 30 mg capsule Take 1 capsule by mouth every afternoon. - buPROPion XL (WELLBUTRIN XL) 300 mg 24 hr tablet Take 300 mg by mouth once daily. - Cholecalciferol, Vitamin D3, 50 mcg (2,000 unit) cap Take 1 capsule by mouth once daily. - fluticasone (FLONASE) 50 mcg/actuation nasal spray Use 2 (TWO) sprays IN EACH NOSTRIL DAILY DIRECTED - Gatorade Sports Drink Use as directed for Miralax / Gatorade Bowel Prep Kit Problem List As Of Date 04/18/2025 Noted Resolved Gastroesophageal reflux disease without esophag*04/29/2006 DIS OF GALLBLADDER NEC [K82.8] 07/25/2008 Class 1 obesity [E66.811] 07/04/2020 Essential hypertension, benign [I10] Dietary counseling and surveillance [Z71.3] 04/24/2021 Abnormal EKG [R94.31] 04/24/2021 Spondylolisthesis, lumbar region [M43.16] 05/07/2021 Body mass index 31.0-31.9, adult [Z68.31] 08/12/2021 Chronic bilateral low back pain [M54.50, G89.29]08/12/2021 Gastroesophageal reflux disease with esophagiti* Vitamin D deficiency [E55.9] 08/12/2021 Paraesophageal hernia [K44.9] 08/12/2021 Preop examination [Z01.818] 09/28/2024 AARON (obstructive sleep apnea) [G47.33] 09/28/2024 Marijuana user [F12.90] 09/28/2024 Former smoker [Z87.891] 09/28/2024 Obesity (BMI 30-39.9) [E66.9] 09/28/2024 Screening for colon cancer [Z12.11] 09/28/2024 Hypertension [I10] 09/28/2024 Encounter Status:Closed by STEVEN JURADO on 04/18/25 [facility] Luis 04-16-2025 OV Office Visit (AGGENS4) FRANCIA GAMA ([id number]) 1960 F Date Time Provider Department 04/16/25 11:00 AM APRIL MYERS4 During your visit today, we recorded the following information about you: Pulse Blood pressure Weight Height 72/minute 124/70 78.8 kg 1.651 m April Myers APRN.CNP 04/16/2025 11:20 AM Signed [facility] FOLLOW UP NOTE Name: Francia Gama Index Surgery Date of Surgery: 04/02/2025 Surgeon: Dr. Saavedra Surgical Procedure: 1.- Laparoscopic repair of RECURRENT paraesophageal hernia - 22 modifier due to surgery being reoperative/revision with great amount of scar tissue and take down of previous Rosenda fundoplication 2.- Laparoscopic Rosenda fundoplication with mesh placement 3.- EGD Fever/Chills: Denies Abdominal Pain: Denies Increased Heart Rate: Denies Bloating/Hiccups: Denies Decreased Urine Output: Denies Nausea/Vomiting: Denies Diarrhea: Denies Constipation: Denies; taking miralax, having soft brown BMs Reflux/Regurgitation : Denies Dysphagia: Had one episode after eating jello, otherwise denies Taking medications without difficulty. She is eating and drinking without difficulty. HISTORY REVIEWED (electronic chart updated): - medical history - medications - allergies Current Outpatient Medications Medication Sig pantoprazole DR (PROTONIX) 40 mg tablet Take 1 tablet by mouth once daily. ondansetron (ZOFRAN) 4 mg tablet Take 1 tablet by mouth every 6 hours as needed. fexofenadine (BETTY) 180 mg tablet Take 1 tablet by mouth once daily. losartan-hydroCHLORO thiazide (HYZAAR) 100-12.5 mg per tablet Take 1 tablet by mouth once daily. Omeprazole Magnesium (PRILOSEC OTC) 20 mg tablet Take 20 mg by mouth once daily. amLODIPine (NORVASC) 10 mg tablet Take 1 tablet by mouth once daily. DULoxetine (CYMBALTA) 30 mg capsule Take 1 capsule by mouth every afternoon. buPROPion XL (WELLBUTRIN XL) 300 mg 24 hr tablet Take 300 mg by mouth once daily. Cholecalciferol, Vitamin D3, 50 mcg (2,000 unit) cap Take 1 capsule by mouth once daily. fluticasone (FLONASE) 50 mcg/actuation nasal spray Use 2 (TWO) sprays IN EACH NOSTRIL DAILY DIRECTED Gatorade Sports Drink Use as directed for Miralax / Gatorade Bowel Prep Kit No current facility-administere d medications for this visit. REVIEW OF SYSTEMS: Review of Systems Constitutional: Negative for chills, fever and malaise/fatigue. Eyes: Negative for blurred vision. Respiratory: Negative for shortness of breath. Cardiovascular: Negative for chest pain, palpitations and leg swelling. Gastrointestinal: Negative for abdominal pain, blood in stool, constipation, diarrhea, heartburn, melena, nausea and vomiting. Skin: Negative for rash. Neurological: Negative for dizziness and weakness. Psychiatric/Behavior al: Negative. PHYSICAL EXAM: BP 124/70 (BP Site: Left Arm, BP Position: Sitting, BP Cuff Size: Large Adult) Pulse 72 Ht 165.1 cm (5' 5) Wt 78.8 kg (173 lb 12.8 oz) BMI 28.92 kg/m? Physical Exam Constitutional: General: She is not in acute distress. Appearance: Normal appearance. She is not ill-appearing. HENT: Head: Normocephalic. Nose: Nose normal. Mouth/Throat: Mouth: Mucous membranes are moist. Cardiovascular: Rate and Rhythm: Normal rate. Pulmonary: Effort: Pulmonary effort is normal. No respiratory distress. Abdominal: General: Abdomen is flat. There is no distension. Palpations: Abdomen is soft. There is no mass. Musculoskeletal: General: No swelling. Normal range of motion. Cervical back: Normal range of motion. Skin: General: Skin is warm and dry. Coloration: Skin is not jaundiced. Comments: Surgical incisions c/d/i Neurological: General: No focal deficit present. Mental Status: She is alert and oriented to person, place, and time. Mental status is at baseline. Psychiatric: Mood and Affect: Mood normal. Behavior: Behavior normal. Thought Content: Thought content normal. Judgment: Judgment normal. ASSESSMENT AND PLAN: ASSESSMENT/PLAN: 1. S/P repair of paraesophageal hernia - ICD9: V45.89, ICD10: Z98.890, Z87.19 - doing very well with no issues. She has already stopped taking protonix. Reminded her to not lift over 15 lb for another 6 weeks. - follow up with surgeon in 3 months INGRID Mittal Angela, APRN.MARGARET 04/16/2025 11:20 AM Addendum Allergies As of Date: 04/16/2025 Noted Allergy Reaction KIWI 08/06/2019 10 - Anaphylaxis LATEX, NATURAL RUBBER 08/06/2019 4 - Hives TETRACYCLINE 04/29/2006 11 - Vomiting PAROXETINE 05/17/2017 16 - Unknown MORPHINE 11/15/2019 9 - Itching Date Reviewed: 04/16/2025 Reviewed by: April Myers APRN.CREW TEAM MEMBER - Fully Assessed Reason for Visit: Post Op [174] Primary Visit Diagnosis:S/P repair of paraesophageal hernia [Z98.890, Z87.19] (more content not included)... Normal [facility] CNPNon 04-08-2025 CNPN Telephone (AGGENS4) FRANCIA GAMA ([id number]) 1960 F Date Time Provider Department 04/08/25 MITRA SAAVEDRA AGGENS4 During your visit today, we recorded the following information about you: Steven Jurado RN 04/08/2025 2:53 PM Signed I called patient on Thursday 04/05 and again today. I left a message asking for a return call with my contact information. I also left a message with patient's daughter, Maria L. Both voicemail's were full of static and hard to understand. Steven Jennings RN, GARO 04/08/2025 3:07 PM Signed Patient's daughter called me back and handed the phone to her mother, Francia. Patient was discharged home after redo-Rosenda procedure on 04/02/25: Swallowing: denies any difficulty swallowing liquids, soft foods and pills. Patient has had 1 protein drink, 51 oz of water, pudding and Jell-O today Voiding/color of urine: patient reports her urine is light in color Passing flatus: yes Moving bowels: Patient still has not moved bowels since surgery. Patient reports her abdomen is soft and slightly distended. She is not uncomfortable. Patient has taken Miralax daily for the last 3 days and today she took 2 Tbsp of MOM. I instructed patient to use a Dulcolax suppository or Fleets enema she does not have any results by tomorrow morning. Patient agreed. Inspection of incisions: Patient states incisions are intact, without redness or drainage. Patient states the RUQ incision is the most sore. Using incentive spirometer: Patient reports getting incentive spirometer up to 2,500 ml today. I congratulated her and encouraged her to keep using the incentive spirometer for another week. Physical activity: Walking outside a few times/day. Follow up appt confirmation: 04/16/25 I encouraged patient to call with any questions or concerns before his follow up appointment. Patient thanked me for the call. Steven Jurado RN Allergies As of Date: 04/08/2025 Noted Allergy Reaction KIWI 08/06/2019 10 - Anaphylaxis LATEX, NATURAL RUBBER 08/06/2019 4 - Hives TETRACYCLINE 04/29/2006 11 - Vomiting PAROXETINE 05/17/2017 16 - Unknown MORPHINE 11/15/2019 9 - Itching Date Reviewed: 04/02/2025 Reviewed by: Elma Hernandez RN - Fully Assessed Reason for Visit: Hospital Follow Up [177] Prescriptions as of 04/08/2025 - pantoprazole DR (PROTONIX) 40 mg tablet Take 1 tablet by mouth once daily. - ondansetron (ZOFRAN) 4 mg tablet Take 1 tablet by mouth every 6 hours as needed. - traMADol (ULTRAM) 50 mg tablet Take 1 tablet by mouth every 8 hours as needed for up to 5 days. - fexofenadine (BETTY) 180 mg tablet Take 1 tablet by mouth once daily. - losartan-hydroCHLORO thiazide (HYZAAR) 100-12.5 mg per tablet Take 1 tablet by mouth once daily. - Omeprazole Magnesium (PRILOSEC OTC) 20 mg tablet Take 20 mg by mouth once daily. - amLODIPine (NORVASC) 10 mg tablet Take 1 tablet by mouth once daily. - DULoxetine (CYMBALTA) 30 mg capsule Take 1 capsule by mouth every afternoon. - buPROPion XL (WELLBUTRIN XL) 300 mg 24 hr tablet Take 300 mg by mouth once daily. - Cholecalciferol, Vitamin D3, 50 mcg (2,000 unit) cap Take 1 capsule by mouth once daily. - fluticasone (FLONASE) 50 mcg/actuation nasal spray Use 2 (TWO) sprays IN EACH NOSTRIL DAILY DIRECTED - Gatorade Sports Drink Use as directed for Miralax / Gatorade Bowel Prep Kit Problem List As Of Date 04/08/2025 Noted Resolved Gastroesophageal reflux disease without esophag*04/29/2006 DIS OF GALLBLADDER NEC [K82.8] 07/25/2008 Class 1 obesity [E66.811] 07/04/2020 Essential hypertension, benign [I10] Dietary counseling and surveillance [Z71.3] 04/24/2021 Abnormal EKG [R94.31] 04/24/2021 Spondylolisthesis, lumbar region [M43.16] 05/07/2021 Body mass index 31.0-31.9, adult [Z68.31] 08/12/2021 Chronic bilateral low back pain [M54.50, G89.29]08/12/2021 Gastroesophageal reflux disease with esophagiti* Vitamin D deficiency [E55.9] 08/12/2021 Paraesophageal hernia [K44.9] 08/12/2021 Preop examination [Z01.818] 09/28/2024 AARON (obstructive sleep apnea) [G47.33] 09/28/2024 Marijuana user [F12.90] 09/28/2024 Former smoker [Z87.891] 09/28/2024 Obesity (BMI 30-39.9) [E66.9] 09/28/2024 Screening for colon cancer [Z12.11] 09/28/2024 Hypertension [I10] 09/28/2024 Encounter Status:Closed by STEVEN JURADO on 04/08/25 Normal [facility] Basic metabolic 2000 panelon 04-04-2025 Anion gap [Moles/Vol] 11 mmol/L Normal 8-15 [facility] Comment on above: Order Comment: Speci men Type: BLOOD SPECIMENOrdering Facility: [facility] Address: [address] [place] [address] Performed By: #### 2 4321-2 ####[facility] LABORATORYCLIA [id number] [place] [address] [place] Calcium [Mass/Vol] 9.0 mg/dL Normal 8.5-10.2 [facility] Comment on above: Order Comment: Speci men Type: BLOOD SPECIMENOrdering Facility: [facility] Address: [address] [place] [address] Performed By: #### 2 4321-2 ####[facility] LABORATORYCLIA [id number] [place] [address] [place] Chloride [Moles/Vol] 100 mmol/L Normal 98-107 [facility] Comment on above: Order Comment: Speci men Type: BLOOD SPECIMENOrdering Facility: [facility] Address: [address] [place] [address] Performed By: #### 2 4321-2 ####[facility] LABORATORYCLIA [id number] [address] [place] CO2 [Moles/Vol] 26 mmol/L Normal 22-30 [facility] Comment on above: Order Comment: Speci men Type: BLOOD SPECIMENOrdering Facility: [facility] Address: [address] [place] [address] Performed By: #### 2 4321-2 ####[facility] LABORATORYCLIA [id number] [place] [address] [place] Creatinine [Mass/Vol] 0.64 mg/dL Normal 0.58-0.96 [facility] Comment on above: Order Comment: Speci men Type: BLOOD SPECIMENOrdering Facility: [facility] Address: [address] [place] [address] Performed By: #### 2 4321-2 ####[facility]ORATORYCLIA [id number] [address] Creatinine and Glomerular filtration rate.predicted panel (S/P/Bld) 99 mL/min/1.73m??? Normal >=60 [facility] Comment on above: Order Comment: Speci men Type: BLOOD SPECIMENOrdering Facility: [facility] Address: [address] [place] [address] Result Comment: Laurel mated Glomerular Filtration Rate (eGFR) is calculated using the 2020 CKD-EPI creatinine equation. This equation utilizes serum creatinine, sex, and age as parameters. The creatinine assay has traceable calibration to isotope dilution-mass spectrometry. Refer to KDIGO guidelines for clinical interpretation. In patients with unstable renal function, e.g. those with acute kidney injury, the eGFR may not accurately reflect actual GFR. Performed By: #### 2 4321-2 ####[facility]ORATORYCLIA [id number] [place] [address] [place] Glucose [Mass/Vol] 88 mg/dL Normal 74-99 [facility] Comment on above: Order Comment: Speci heather Type: BLOOD SPECIMENOrdering Facility: [facility] Address: [address] [place] [address] Result Comment: The [place] Diabetes Association (ADA) provides guidance for cutoff values for fasting glucose and random glucose. The ADA defines fasting as no caloric intake for at least 8 hours. Fasting plasma glucose results between 100 to 125 mg/dL indicate increased risk for diabetes (prediabetes). Fasting plasma glucose results greater than or equal to 126 mg/dL meet the criteria for diagnosis of diabetes. In the absence of unequivocal hyperglycemia, results should be confirmed by repeat testing. In a patient with classic symptoms of hyperglycemia or hyperglycemic crisis, random plasma glucose results greater than or equal to 200 mg/dL meet the criteria for diagnosis of diabetes. Reference: Standards of Medical Care in Diabetes 2016, [place] [employer] Association. Diabetes Care. 2016.39(Suppl 1). Performed By: #### 2 4321-2 ####[facility]ORATORYCLIA [id number] [place] [address] [place] Potassium [Moles/Vol] 3.4 mmol/L Low 3.7-5.1 [facility] Comment on above: Order Comment: Sergio romero Type: BLOOD SPECIMENOrdering Facility: [facility] Address: [address] [place] [id number] Performed By: #### 2 4321-2 ####[facility]ORATORYCLIA [id number] [place] [id number] [place] Sodium [Moles/Vol] 137 mmol/L Normal 136-144 [facility] Comment on above: Order Comment: Speci men Type: BLOOD SPECIMENOrdering Facility: [facility] Address: [address] [place] [address] Performed By: #### 2 4321-2 ####[facility]ATORYCLIA [id number] [address] [place] OF [facility] Urea nitrogen [Mass/Vol] 9 mg/dL Normal 7-21 [facility] Comment on above: Order Comment: Speci men Type: BLOOD SPECIMENOrdering Facility: [facility] Address: [address] [place] [address] Performed By: #### 2 4321-2 ####[facility]ORATORYCLIA [id number] [place] [id number] [facility] CASE MANAGEMon 04-04-2025 CASE MANAGEM HNO ID: [id number] Author: GREGORY PRATT RN Service: Nursing Author Type: Registered Nurse Type: Care Mgt Progress Note Filed: 04/04/2025 14:42 Note Text: CASE MANAGEMENT HOME OXYGEN EVALUATION SERVICE DATE: 04/04/2025 [facility] SERVICE TIME: 1420 Assessment: Patient's SPO2 on room air at rest is 92 %. Patient's SPO2 on room air with exercise is 90 %. Patient's SPO2 on 2 L/min O2 with exercise is 93 %. SIGNATURE: Gregory Pratt RN PATIENT NAME: Francia Gama DATE: April 04, 2025 TIME: 2:41 PM PAGER/CONTACT #: Normal [facility] CBC W Auto Differential pane l (Bld)on 04-04-2025 Basophils (Bld) [#/Vol] 10*3/uL Normal <0.11 A [facility] Comment on above: Order Comment: Speci men Type: BLOOD SPECIMENOrdering Facility: [facility] Address: [address] [place] [address] Performed By: #### 5 7021-8 ####[facility]ORATORYCLIA [id number] [address] Basophils/100 WBC (Bld) 0.3 % Normal A [facility] Comment on above: Order Comment: Speci men Type: BLOOD SPECIMENOrdering Facility: [facility] Address: [address] [place] [address] Performed By: #### 5 7021-8 ####[facility]ORATORYCLIA [id number] [address] Differential cell count method Nom (Bld) Auto Normal [facility] Comment on above: Order Comment: Speci men Type: BLOOD SPECIMENOrdering Facility: [facility] Address: [address] [place] [address] Performed By: #### 5 7021-8 ####[facility]ORATORYCLIA [id number] [address] Eosinophils (Bld) [#/Vol] 0.15 10*3/uL Normal <0.46 [facility] Comment on above: Order Comment: Speci men Type: BLOOD SPECIMENOrdering Facility: [facility] Address: [address] [place] [address] Performed By: #### 5 7021-8 ####[facility] LABORATORYCLIA [id number] [address] Eosinophils/100 WBC (Bld) 2.0 % Normal [facility] Comment on above: Order Comment: Speci men Type: BLOOD SPECIMENOrdering Facility: [facility] Address: [address] [place] [address] Performed By: #### 5 7021-8 ####[facility] LABORATORYCLIA [id number] [address] Erythrocyte distribution width (RBC) [Ratio] 15.0 % Normal 11.5-15.0 [facility] Comment on above: Order Comment: Speci men Type: BLOOD SPECIMENOrdering Facility: [facility] Address: [address] [place] [address] Performed By: #### 5 7021-8 ####[facility] LABORATORYCLIA [id number] [place] [address] [place] Hematocrit (Bld) [Volume fraction] 37.2 % Normal 36.0-46.0 [facility] Comment on above: Order Comment: Speci men Type: BLOOD SPECIMENOrdering Facility: [facility] Address: [address] [place] [address] Performed By: #### 5 7021-8 ####[facility] LABORATORYCLIA [id number] [place] [address] [place] Hemoglobin (Bld) [Mass/Vol] 12.2 g/dL Normal 11.5-15.5 [facility] Comment on above: Order Comment: Speci men Type: BLOOD SPECIMENOrdering Facility: [facility] Address: [address] [place] [address] Performed By: #### 5 7021-8 ####[facility] LABORATORYCLIA [id number] [address] [place] Immature granulocytes (Bld) [#/Vol] 10*3/uL Normal <0.10 [facility] Comment on above: Order Comment: Speci men Type: BLOOD SPECIMENOrdering Facility: [facility] Address: [address] [place] [address] Performed By: #### 5 7021-8 ####[facility] LABORATORYCLIA [id number] [address] [place] Immature granulocytes/100 WBC (Bld) 0.3 % Normal [facility] Comment on above: Order Comment: Speci men Type: BLOOD SPECIMENOrdering Facility: [facility] Address: [address] [place] [address] Performed By: #### 5 7021-8 ####[facility]ORATORYCLIA [id number] [place] [address] [place] Lymphocytes (Bld) [#/Vol] 1.64 10*3/uL Normal 1.00-4.0 0 [facility] Comment on above: Order Comment: Speci men Type: BLOOD SPECIMENOrdering Facility: [facility] Address: [address] [place] [address] Performed By: #### 5 7021-8 ####[facility]ORATORYCLIA [id number] [address] Lymphocytes/100 WBC (Bld) 21.5 % Normal [facility] Comment on above: Order Comment: Speci men Type: BLOOD SPECIMENOrdering Facility: [facility] Address: [address] [place] [address] Performed By: #### 5 7021-8 ####[facility] LABORATORYCLIA [id number] [address] MCH (RBC) [Entitic mass] 28.6 pg Normal 26.0-34.0 [facility] Comment on above: Order Comment: Speci men Type: BLOOD SPECIMENOrdering Facility: [facility] Address: [address] [place] [address] Performed By: #### 5 7021-8 ####[facility] LABORATORYCLIA [id number] [address] MCHC (RBC) [Mass/Vol] 32.8 g/dL Normal 30.5-36.0 [facility] Comment on above: Order Comment: Speci men Type: BLOOD SPECIMENOrdering Facility: [facility] Address: [address] [place] [address] Performed By: #### 5 7021-8 ####[facility]ORATORYCLIA [id number] [address] MCV (RBC) [Entitic vol] 87.3 fL Normal 80.0-100.0 [facility] Comment on above: Order Comment: Speci men Type: BLOOD SPECIMENOrdering Facility: [facility] Address: [address] [place] [address] Performed By: #### 5 7021-8 ####[facility]ORATORYCLIA [id number] [address] Monocytes (Bld) [#/Vol] 0.72 10*3/uL Normal <0.87 [facility] Comment on above: Order Comment: Speci men Type: BLOOD SPECIMENOrdering Facility: [facility] Address: [address] [place] [address] Performed By: #### 5 7021-8 ####[facility]ORATORYCLIA [id number] [address] [place] Monocytes/100 WBC (Bld) 9.4 % Normal [facility] Comment on above: Order Comment: Speci men Type: BLOOD SPECIMENOrdering Facility: [facility] Address: [address] [place] [address] Performed By: #### 5 7021-8 ####[facility]ORATORYCLIA [id number] [place] [address] [place] Neutrophils (Bld) [#/Vol] 5.07 10*3/uL Normal 1.45-7.5 0 [facility] Comment on above: Order Comment: Speci men Type: BLOOD SPECIMENOrdering Facility: [facility] Address: [address] [place] [address] Performed By: #### 5 7021-8 ####[facility]ATORYCLIA [id number] [address] [place] Neutrophils/100 WBC (Bld) 66.5 % Normal [facility] Comment on above: Order Comment: Speci men Type: BLOOD SPECIMENOrdering Facility: [facility] Address: [address] [place] [address] Performed By: #### 5 7021-8 ####[facility]ORATORYCLIA [id number] [place] [address] [place] Nucleated RBC (Bld) [#/Vol] 10*3/uL Normal <0.01 [facility] Comment on above: Order Comment: Speci men Type: BLOOD SPECIMENOrdering Facility: [facility] Address: [address] [place] [address] Performed By: #### 5 7021-8 ####[facility]ORATORYCLIA [id number] [address] [place] Nucleated RBC/100 WBC (Bld) [Ratio] 0.0 /100 WBC Normal [facility] Comment on above: Order Comment: Speci men Type: BLOOD SPECIMENOrdering Facility: [facility] Address: [address] [place] [address] Performed By: #### 5 7021-8 ####[facility]ORATORYCLIA [id number] [place] [address] [place] Platelet mean volume (Bld) [Entitic vol] 9.7 fL Normal 9.0-12.7 [facility] Comment on above: Order Comment: Speci men Type: BLOOD SPECIMENOrdering Facility: [facility] Address: [address] [place] [address] Performed By: #### 5 7021-8 ####[facility] LABORATORYCLIA [id number] [place] [address] [place] Platelets (Bld) [#/Vol] 231 10*3/uL Normal 150-400 [facility] Comment on above: Order Comment: Speci men Type: BLOOD SPECIMENOrdering Facility: [facility] Address: [address] [place] [address] Performed By: #### 5 7021-8 ####[facility] LABORATORYCLIA [id number] [place] [address] [place] RBC (Bld) [#/Vol] 4.26 10*6/uL Normal 3.90-5.20 [facility] Comment on above: Order Comment: Speci men Type: BLOOD SPECIMENOrdering Facility: [facility] Address: [address] [place] [address] Performed By: #### 5 7021-8 ####[facility]ORATORYCLIA [id number] [place] [address] [place] WBC (Bld) [#/Vol] 7.62 10*3/uL Normal 3.70-11.00 [facility] Comment on above: Order Comment: Speci men Type: BLOOD SPECIMENOrdering Facility: [facility] Address: [address] [place] [address] Performed By: #### 5 7021-8 ####[facility] LABORATORYCLIA [id number] [address] OF [facility] CNDSon 04-04-2025 [facility] HNO ID: [id number] Author: MITRA SAAVEDRA MD Service: General Surgery Author Type: Resident Type: Discharge Summary Filed: 04/04/2025 18:41 Note Text: Attestation signed by Mitra Saavedra MD at 04/04/2025 6:41 PM I saw and evaluated/examined the patient with the resident and personally participated in the benton components. I have reviewed the resident's note and discussed the case and management of the patient's care with the resident. I agree with the above assessment and plan unless otherwise noted below. Plan of care discussed with: Provider, RN, Patient. DISCHARGE SUMMARY PATIENT NAME: Francia Gmaa Code Status: Full Code Highest Readmission Risk Score: 10 The 30 day readmissions risk score is derived from an internally validated risk model which evaluates patient level characteristics, utilization history, medication orders and lab results up until the day of discharge. Patients with a score of 39 or above are considered highest risk for readmission. Specific patient level drivers will be listed at the bottom of the summary. Admission Information Admission Information ADMIT DATE: 04/02/2025 DISCHARGE DATE: 04/04/2025 MY DOCTORS AND MEDICAL TEAM: My Main Hospital Doctor: Mitra Saavedra MD Primary Care Provider: Julisa Cheung MD My Medical Team Members: Treatment Team: Attending Provider: Mitra Saavedra MD MY CONDITION AT DISCHARGE: Stable REASON I WAS IN THE HOSPITAL: Takedown of rosenda fundoplication and paraesophageal hernia repair and Rosenda fundoplication. SUMMARY OF WHAT HAPPENED WHILE I WAS IN THE HOSPITAL: Patient had scheduled surgery with Dr. Saavedra surgery went well. Patient was kept NPO day of surgery and hd UGI study POD#1 which demonstrated no evidence of leak. Patient was started on anti-reflux CLD. Diet was advanced to anti-reflux FLD POD#2. Patient tolerated well. No nausea or emesis, pain well controlled, Ambulating. Patient is stable for discharge. OTHER PROBLEMS/DIAGNOSIS: Principal Problem: Paraesophageal hernia Resolved Problems: * No resolved hospital problems. * OPERATIONS PERFORMED WHILE IN THE HOSPITAL: Paraesophageal hernia repair, takedown of rosenda fundoplication and redo rosenda fundoplication IMPORTANT TEST/PROCEDURES: UGI study TEST RESULTS NOT AVAILABLE AT THIS TIME: No pending results Discharge Disposition Discharge Disposition: Home With Self Care Activity When You Leave the Hospital Lifting is restricted to: No more than 20lbs for 2 weeks No prolonged bedrest, longer than 8 hours in a 24 hour period No swimming or hot tubs for: 2 weeks No walking restrictions Diet Instructions Other: Anti-reflux full liquid diet For Pain When You Leave the Hospital No alcohol or driving while on pain medication Other: For the first 2-3 days post operatively, take both ibuprofen and tylenol. You should take each every 6 hours, but alternate them every 3 hours. For instance, if you take tylenol at 12 pm, then you should take ibuprofen at 3 pm and then tylenol again at 6 pm and so on. Do not exceed the daily dosage of either medications as instructed on the bottle. For break through pain that is not relieved by the above, take the oxycodone as instructed on the prescription bottle Use the dispensed medication (see prescription) Wound/Surgical Site Care Leave open to air Some bleeding from the wound/surgical site can be expected. If excessive, see a doctor at once Wash your hands frequently, especially before touching your incision, after using restroom and before eating Call Your Doctor If There is an unusual odor from the wound area There is severe pain at the operative site You have a severe headache You have lightheadedness, fainting, or confusion You have persistent nausea/vomiting over 24 hours You have persistent or heavy bleeding You have redness, swelling, pus or drainage from the wound You have swollen glands or cold and clammy skin Your temperature is greater than 101F Follow Up Appointments Follow-up Appointment When: In 2 weeks Mitra Saavedra MD [phone] [facility] [address] [address] PCP Requested Referral Additional Provider to Provider Information: Principal Problem: Paraesophageal hernia Resolved Problems: * No resolved hospital problems. * Treatment Team: Attending Provider: Mitra Saavedra MD FINAL DIAGNOSIS: Active Hospital Problems Diagnosis POA Paraesophageal hernia Yes Resolved Hospital Problems No resolved problems to display. FOLLOW-UP APPOINTMENTS ALREADY SCHEDULED WITH A [facility] PROVIDER: Future Appointments Date Time Provider Department Center 04/16/2025 11:00 AM April Myers, [employer] [facility] 08/01/2025 8:00 AM (more content not included)... Normal [facility] NUTRITIONon 04-04-2025 NUTRITION HNO ID: [id number] Author: YADIRA SOLOMON RD Service: Nutrition Therapy Author Type: Registered Dietitian Type: Nutrition Filed: 04/04/2025 19:55 Note Text: NUTRITION THERAPY INITIAL ASSESSMENT SERVICE DATE: 04/04/2025 SERVICE TIME: Start Time: 1222 Nutrition Assessment: Recommended Malnutrition Diagnosis: No Malnutrition Identified Nutrition Diagnosis: Problem: Increased nutrient needs Related to: Acute illness As evidenced by: Procedure/surgery Care Plan: Continue to advance PO diet as able and tolerated. Continue current diet 2. Continue Supplements: Ensure Max, Powerade Zero Monitor and Evaluation: Meet greater than 75% of estimated needs Discharge Recommendations: Diet Diet: Post op anti-reflux and advance as per Dr. Saavedra's office HPI: This is a 64 year old female admitted with Gastroesophageal reflux disease without esophagitis [K21.9] Paraesophageal hernia [K44.9] Hypertension, unspecified type [I10] Body mass index 30.0-30.9, adult [Z68.30] Her past medical history includes: PAST MEDICAL HISTORY Diagnosis Date Acute deep vein thrombosis (DVT) of popliteal vein of left lower extremity (HCC) 06/2020 Eliquis x 3 months off now. After a fall Depression Dysphagia Essential hypertension, benign Generalized anxiety disorder GERD (gastroesophageal reflux disease) Hiatal hernia surgically corrected 2014; recurrent 10/12/24-surgically corrected 04/02/25 AARON (obstructive sleep apnea) mild -no CPAP Paraesophageal hernia Spondylolisthesis of lumbar region She is currently POD 2 s/p LAPAROSCOPIC RPR PARAESOHAGEAL HERNIA W/ FUNDOPLASTY W/ MESH--Laparoscopic, possible open, paraesophageal hernia repair with Rosenda fundoplicatio- revision rosenda takedown EGD Intake History: Nutrition Intake Prior to Admission: Greater than 75% estimated energy needs greater than or equal to 3 months (some decrease in intakes over the last year due to hernia but symptoms would come and go, able to take adequate PO overall. Taking Ensure at home as well.) Current Nutrition Intake: Less than 50% estimated energy needs Current Intake Over time: (2 days) Diet advanced to full liquid anti-reflux today and patient reports going slow but tolerating well. She has been drinking Ensure at home prior to surgery and will continue at discharge. Dosing Weight: 80.7 kg (177 lb 14.6 oz) Dosing Weight Type: (03/26 PAT visit weight) Estimated kilocalorie needs: 1614 - 2012 kcals Calorie Calculation Method: 20-25 kcals/kg Estimated protein needs (grams): 68 - 86 g Grams protein determined by: 1.2 - 1.5 g/kg, Prospect body weight Diet Orders (From admission, onward) Start Ordered 04/04/25 0715 DIET LIQUID START NOW Question Answer Comment Liquid Diet FULL LIQUID Post-Op Anti-Reflux PostOp AntiReflux 04/04/25 0707 04/04/25 0715 DIET SUPPLEMENTS START NOW Question Answer Comment Supplement 1 POWERADE ZERO GRAPE Supplement 1 Frequency THREE TIMES/DAY WITH MEALS 04/04/25 0708 04/04/25 0715 DIET SUPPLEMENTS START NOW Question Answer Comment Supplement 1 ENSURE MAX VANILLA Supplement 1 Frequency THREE TIMES/DAY WITH MEALS 04/04/25 0708 Anthropometrics: Height: 165.1 cm (5' 5) Weight: 84.7 kg (186 lb 11.7 oz) Usual Weight: 85.7 kg (189 lb) July, Usual Weight Obtained From: Chart Review Body mass index is 31.07 kg/m?. Weight change percentage over time: loss of 5.8% over 8 months Weight Change: Not clinically significant weight loss Weight history: Date: Wt: 03/26/2025 80.7 kg (178 lb) 03/07/2025 82.1 kg (181 lb) 12/06/2024 84.7 kg (186 lb 11.7 oz) 12/06/2024 82.8 kg (182 lb 9.6 oz) 10/12/2024 81.6 kg (180 lb) 08/02/2024 85.9 kg (189 lb 6.4 oz) 04/02/2022 89.4 kg (197 lb 1.5 oz) 11/24/2021 85.7 kg (189 lb) Physical Exam: Subcutaneous fat loss: No Subcutaneous Fat Loss Muscle loss: No Muscle Loss Potential micronutrient deficiency: No deficiency identified Edema/Ascites: No edema, No ascites GI Symptoms: Early satiety Functional Status: Unable to assess Potential Signs of Inflammation: Acute post-operative, Chronic condition HLD, HTN MNT Billing: $ Routine Care : 1 unit Time Spent (mins): 6 SIGNATURE: Yadira Solomon RD PATIENT NAME: Francia Gama DATE: April 04, 2025 TIME: 7:51 PM Normal [facility] Basic metabolic 2000 panelon 04-03-2025 Anion gap [Moles/Vol] 12 mmol/L Normal 8-15 [facility] Comment on above: Order Comment: Speci men Type: BLOOD SPECIMENOrdering Facility: [facility] Address: [address] [place] [address] Performed By: #### 2 4321-2 ####[facility] LABORATORYCLIA [id number] [place] [address] [place] Calcium [Mass/Vol] 8.6 mg/dL Normal 8.5-10.2 [facility] Comment on above: Order Comment: Speci men Type: BLOOD SPECIMENOrdering Facility: [facility] Address: [address] [place] [address] Performed By: #### 2 4321-2 ####[facility] LABORATORYCLIA [id number] [place] [address] [place] Chloride [Moles/Vol] 101 mmol/L Normal 98-107 [facility] Comment on above: Order Comment: Speci men Type: BLOOD SPECIMENOrdering Facility: [facility] Address: [address] [place] [address] Performed By: #### 2 4321-2 ####[facility] LABORATORYCLIA [id number] [address] [place] CO2 [Moles/Vol] 25 mmol/L Normal 22-30 [facility] Comment on above: Order Comment: Speci men Type: BLOOD SPECIMENOrdering Facility: [facility] Address: [address] [place] [address] Performed By: #### 2 4321-2 ####[facility] CITYCLIA [id number] [address] Creatinine [Mass/Vol] 0.60 mg/dL Normal 0.58-0.96 [facility] Comment on above: Order Comment: Speci men Type: BLOOD SPECIMENOrdering Facility: [facility] Address: [address] [place] [address] Performed By: #### 2 4321-2 ####[facility] [id number] [address] Creatinine and Glomerular filtration rate.predicted panel (S/P/Bld) 101 mL/min/1.73m??? Normal >=60 [facility] Comment on above: Order Comment: Speci men Type: BLOOD SPECIMENOrdering Facility: [facility] Address: [address] [place] [address] Result Comment: Laurel mated Glomerular Filtration Rate (eGFR) is calculated using the 2020 CKD-EPI creatinine equation. This equation utilizes serum creatinine, sex, and age as parameters. The creatinine assay has traceable calibration to isotope dilution-mass spectrometry. Refer to KDIGO guidelines for clinical interpretation. In patients with unstable renal function, e.g. those with acute kidney injury, the eGFR may not accurately reflect actual GFR. Performed By: #### 2 4321-2 ####[facility]ORATORYCLIA [id number] [address] Glucose [Mass/Vol] 103 mg/dL High 74-99 [facility] Comment on above: Order Comment: Speci men Type: BLOOD SPECIMENOrdering Facility: [facility] Address: [address] [place] [address] Result Comment: The [place] Diabetes Association (ADA) provides guidance for cutoff values for fasting glucose and random glucose. The ADA defines fasting as no caloric intake for at least 8 hours. Fasting plasma glucose results between 100 to 125 mg/dL indicate increased risk for diabetes (prediabetes). Fasting plasma glucose results greater than or equal to 126 mg/dL meet the criteria for diagnosis of diabetes. In the absence of unequivocal hyperglycemia, results should be confirmed by repeat testing. In a patient with classic symptoms of hyperglycemia or hyperglycemic crisis, random plasma glucose results greater than or equal to 200 mg/dL meet the criteria for diagnosis of diabetes. Reference: Standards of Medical Care in Diabetes 2016, [place] [employer] Association. Diabetes Care. 2016.39(Suppl 1). Performed By: #### 2 4321-2 ####[facility] LABORATORYCLIA [id number] [address] STATES OF [facility] Potassium [Moles/Vol] 3.2 mmol/L Low 3.7-5.1 [facility] Comment on above: Order Comment: Speci men Type: BLOOD SPECIMENOrdering Facility: [facility] Address: [address] [place] [address] Performed By: #### 2 4321-2 ####[facility] LABORATORYCLIA [id number] [address] STATES [facility] Sodium [Moles/Vol] 138 mmol/L Normal 136-144 [facility] Comment on above: Order Comment: Pauli heather Type: BLOOD SPECIMENOrdering Facility: [facility] Address: [address] [place] [address] Performed By: #### 2 4321-2 ####[facility]ORATORYCLIA [id number] [address] [place] [facility] Urea nitrogen [Mass/Vol] 9 mg/dL Normal 7-21 [facility] Comment on above: Order Comment: Speci men Type: BLOOD SPECIMENOrdering Facility: [facility] Address: [address] [place] [address] Performed By: #### 2 4321-2 ####[facility] LABORATORYCLIA [id number] [place] [address] [place] CBC W Auto Differential pane l (Bld)on 04-03-2025 Basophils (Bld) [#/Vol] 10*3/uL Normal <0.11 [facility] Comment on above: Order Comment: Speci men Type: BLOOD SPECIMENOrdering Facility: [facility] Address: [address] [place] [address] Performed By: #### 5 7021-8 ####[facility]ORATORYCLIA [id number] [place] [address] [place] Basophils/100 WBC (Bld) 0.1 % Normal A [facility] Comment on above: Order Comment: Speci men Type: BLOOD SPECIMENOrdering Facility: [facility] Address: [address] [place] [address] Performed By: #### 5 7021-8 ####[facility] LABORATORYCLIA [id number] [address] [place] Differential cell count method Nom (Bld) Auto Normal [facility] Comment on above: Order Comment: Speci men Type: BLOOD SPECIMENOrdering Facility: [facility] Address: [address] [place] [address] Performed By: #### 5 7021-8 ####[facility]ATORYCLIA [id number] [place] [address] [place] Eosinophils (Bld) [#/Vol] 10*3/uL Normal <0.46 [facility] Comment on above: Order Comment: Speci men Type: BLOOD SPECIMENOrdering Facility: [facility] Address: [address] [place] [address] Performed By: #### 5 7021-8 ####[facility] [facility]ORATORYCLIA [id number] [place] [address] [place] Eosinophils/100 WBC (Bld) 0.0 % Normal [facility] Comment on above: Order Comment: Speci men Type: BLOOD SPECIMENOrdering Facility: [facility] Address: [address] [place] [address] Performed By: #### 5 7021-8 ####[facility]ORATORYCLIA [id number] [address] [place] Erythrocyte distribution width (RBC) [Ratio] 14.6 % Normal 11.5-15.0 [facility] Comment on above: Order Comment: Speci men Type: BLOOD SPECIMENOrdering Facility: [facility] Address: [address] [place] [address] Performed By: #### 5 7021-8 ####[facility] LABORATORYCLIA [id number] [address] [place] Hematocrit (Bld) [Volume fraction] 38.1 % Normal 36.0-46.0 [facility] Comment on above: Order Comment: Speci men Type: BLOOD SPECIMENOrdering Facility: [facility] Address: [address] [place] [address] Performed By: #### 5 7021-8 ####[facility] LABORATORYCLIA [id number] [address] [place] Hemoglobin (Bld) [Mass/Vol] 12.2 g/dL Normal 11.5-15.5 [facility] Comment on above: Order Comment: Speci men Type: BLOOD SPECIMENOrdering Facility: [facility] Address: [address] [place] [address] Performed By: #### 5 7021-8 ####[facility] LABORATORYCLIA [id number] [address] [place] Immature granulocytes (Bld) [#/Vol] 0.03 10*3/uL Normal <0.10 [facility] Comment on above: Order Comment: Speci men Type: BLOOD SPECIMENOrdering Facility: [facility] Address: [address] [place] [address] Performed By: #### 5 7021-8 ####[facility] LABORATORYCLIA [id number] [address] Immature granulocytes/100 WBC (Bld) 0.3 % Normal [facility] Comment on above: Order Comment: Speci men Type: BLOOD SPECIMENOrdering Facility: [facility] Address: [address] [place] [address] Performed By: #### 5 7021-8 ####[facility] LABORATORYCLIA [id number] [address] OF [facility] Lymphocytes (Bld) [#/Vol] 1.02 10*3/uL Normal 1.00-4.0 0 [facility] Comment on above: Order Comment: Speci men Type: BLOOD SPECIMENOrdering Facility: [facility] Address: [address] [place] [address] Performed By: #### 5 7021-8 ####[facility] LABORATORYCLIA [id number] [address] Lymphocytes/100 WBC (Bld) 11.0 % Normal [facility] Comment on above: Order Comment: Speci men Type: BLOOD SPECIMENOrdering Facility: [facility] Address: [address] [place] [address] Performed By: #### 5 7021-8 ####[facility] LABORATORYCLIA [id number] [address] STATES OF [facility] MCH (RBC) [Entitic mass] 28.2 pg Normal 26.0-34.0 [facility] Comment on above: Order Comment: Speci men Type: BLOOD SPECIMENOrdering Facility: [facility] Address: [address] [place] [address] Performed By: #### 5 7021-8 ####[facility] LABORATORYCLIA [id number] [address] [place] MCHC (RBC) [Mass/Vol] 32.0 g/dL Normal 30.5-36.0 [facility] Comment on above: Order Comment: Speci men Type: BLOOD SPECIMENOrdering Facility: [facility] Address: [address] [place] [address] Performed By: #### 5 7021-8 ####[facility] LABORATORYCLIA [id number] [address] [place] MCV (RBC) [Entitic vol] 88.0 fL Normal 80.0-100.0 A [facility] Comment on above: Order Comment: Speci men Type: BLOOD SPECIMENOrdering Facility: [facility] Address: [address] [place] [address] Performed By: #### 5 7021-8 ####[facility] LABORATORYCLIA [id number] [address] [place] Monocytes (Bld) [#/Vol] 0.90 10*3/uL High <0.87 [facility] Comment on above: Order Comment: Speci men Type: BLOOD SPECIMENOrdering Facility: [facility] Address: [address] [place] [address] Performed By: #### 5 7021-8 ####[facility]ORATORYCLIA [id number] [address] Monocytes/100 WBC (Bld) 9.7 % Normal A [facility] Comment on above: Order Comment: Speci men Type: BLOOD SPECIMENOrdering Facility: [facility] Address: [address] [place] [address] Performed By: #### 5 7021-8 ####[facility] LABORATORYCLIA [id number] [address] [place] Neutrophils (Bld) [#/Vol] 7.31 10*3/uL Normal 1.45-7.5 0 [facility] Comment on above: Order Comment: Speci men Type: BLOOD SPECIMENOrdering Facility: [facility] Address: [address] [place] [address] Performed By: #### 5 7021-8 ####[facility]ORATORYCLIA [id number] [address] [place] Neutrophils/100 WBC (Bld) 78.9 % Normal [facility] Comment on above: Order Comment: Speci men Type: BLOOD SPECIMENOrdering Facility: [facility] Address: [address] [place] [address] Performed By: #### 5 7021-8 ####[facility] LABORATORYCLIA [id number] [address] [place] Nucleated RBC (Bld) [#/Vol] 10*3/uL Normal <0.01 [facility] Comment on above: Order Comment: Speci men Type: BLOOD SPECIMENOrdering Facility: [facility] Address: [address] [place] [address] Performed By: #### 5 7021-8 ####[facility] LABORATORYCLIA [id number] [place] [address] [place] Nucleated RBC/100 WBC (Bld) [Ratio] 0.0 /100 WBC Normal [facility] Comment on above: Order Comment: Speci men Type: BLOOD SPECIMENOrdering Facility: [facility] Address: [address] [place] [address] Performed By: #### 5 7021-8 ####[facility]ORATORYCLIA [id number] [place] [address] [place] Platelet mean volume (Bld) [Entitic vol] 9.7 fL Normal 9.0-12.7 [facility] Comment on above: Order Comment: Speci men Type: BLOOD SPECIMENOrdering Facility: [facility] Address: [address] [place] [address] Performed By: #### 5 7021-8 ####[facility] LABORATORYCLIA [id number] [address] [place] Platelets (Bld) [#/Vol] 221 10*3/uL Normal 150-400 [facility] Comment on above: Order Comment: Speci men Type: BLOOD SPECIMENOrdering Facility: [facility] Address: [address] [place] [address] Performed By: #### 5 7021-8 ####[facility] LABORATORYCLIA [id number] [place] [address] [place] RBC (Bld) [#/Vol] 4.33 10*6/uL Normal 3.90-5.20 [facility] Comment on above: Order Comment: Speci men Type: BLOOD SPECIMENOrdering Facility: [facility] Address: [address] [place] [address] Performed By: #### 5 7021-8 ####[facility] LABORATORYCLIA [id number] [place] [address] [place] WBC (Bld) [#/Vol] 9.27 10*3/uL Normal 3.70-11.00 [facility] Comment on above: Order Comment: Speci men Type: BLOOD SPECIMENOrdering Facility: [facility] Address: [address] [place] [address] Performed By: #### 5 7021-8 ####[facility] LABORATORYCLIA [id number] [place] [address] [place] ECG COMPLETEon 04-03-2025 ECG COMPLETE Ventricular Rate : 66 BPM Atrial Rate : 66 BPM P-R Interval : 176 ms QRS Duration : 86 ms Q-T Interval : 418 ms QTC Calculation(Bazett) : 438 ms Calculated P Huntington : 38 degrees Calculated R Huntington : -9 degrees Calculated T Huntington : 18 degrees NORMAL SINUS RHYTHM MINIMAL VOLTAGE CRITERIA FOR LVH, MAY BE NORMAL VARIANT ( R in aVL ) NONSPECIFIC ST ABNORMALITY ABNORMAL ECG WHEN COMPARED WITH ECG OF 07-Apr-2021 11:20, NO SIGNIFICANT CHANGE WAS FOUND Confirmed by MD BEAVER ANUBHAV ([id number]) on 04/03/2025 3:49:03 PM NAME : FRANCIA GAMA PID : [id number] : 1960 Gender : Female Race : ORD : [id number] Procedure Date : Apr 03 2025 09:47:55 Edit Date : Apr 03 2025 15:49:08 Diagnosis: NORMAL SINUS RHYTHM MINIMAL VOLTAGE CRITERIA FOR LVH, MAY BE NORMAL VARIANT ( R in aVL ) NONSPECIFIC ST ABNORMALITY ABNORMAL ECG WHEN COMPARED WITH ECG OF 07-Apr-2021 11:20, NO SIGNIFICANT CHANGE WAS FOUND Confirmed by MD BEAVER ANUBHAV ([id number]) on 04/03/2025 3:49:03 PM Test Reason : Chest Pain Location : 200 : [facility] 5217 Overread By : MD BEAVER ANUBHAV Edited By : MD BEAVER ANUBHAV Referred By : MITRA SAAVEDRA Acquired by : RAVI HENLEY [facility] HIGH SENSITIVITY TROPONIN To n 04-03-2025 Troponin T.cardiac High sensitivity method [Mass/Vol] 16 ng/L High <12 [facility] Comment on above: Order Comment: Speci men Type: BLOOD SPECIMENOrdering Facility: [facility] Address: [facility] [place] [address] Performed By: #### H STNT ####[facility] LABORATORYCLIA [id number] [address] Troponin T.cardiac High sensitivity method [Mass/Vol] 15 ng/L High <12 [facility] Comment on above: Order Comment: Speci men Type: BLOOD SPECIMENOrdering Facility: [facility] Address: [address] [place] [address] Performed By: #### H STNT ####[facility] LABORATORYCLIA [id number] [address] PT EDon 04-03-2025 PT ED HNO ID: [id number] Author: STEVEN JURADO RN Service: Nursing Author Type: Nurse Clinician Type: Patient Education Filed: 04/03/2025 10:08 Note Text: Visited patient in her room. Gave her a second copy of Lap Rosenda discharge instructions; first copy given to patient in the office a few weeks ago. Verbally reviewed all the information and answered all the patient's questions. Patient given a follow up appointment with Dr. Saavedra on 05/01/25 at 11:45 on the 4th floor of the [facility]. Patient also given contact numbers for Dr. Saavedra's office and answering service. Patient given incentive spirometer with instructions. Patient able to correctly demonstrate incentive spirometry to 750 ml. Patient instructed to take incentive spirometer home and continue hourly use while awake until goal of 2,500 ml met consistently. Patient agreed with the plan. I demonstrated how to to release any food/medications that feel stuck by standing up and holding hands overhead . We discussed the need to return to a liquid diet for 48 hours if something gets stuck to allow time for any swelling at the EG junction to resolve. Patient acknowledged understanding. Confirmed with patient that she has protein supplements at home in preparation for 2 week liquid diet. Discharge teaching reviewed with patient. Steven Jurado RN Normal [facility] XR UPPER GI SINGLE CONTRASTo n 04-03-2025 XR UPPER GI SINGLE CONTRAST * * *Final Report* * * DATE OF EXAM: Apr 03 2025 8:29AM AKX [id number] - XR UPPER GI SINGLE CONTRAST / PROCEDURE REASON: Assess for postoperative complication or leak * * * * Physician Interpretation * * * * EXAM TITLE: XR UPPER GI SINGLE CONTRAST DATE: 04/03/2025 8:37 AM INDICATION: Recent paraesophageal hernia repair and fundoplasty. Assess for postoperative complications COMPARISON: None. FINDINGS: 24 seconds of fluoroscopy time. 30 images. Supine benzene operator radiograph demonstrates scattered gas within the bowel possibly indicating mild postoperative adynamic ileus. A small left pleural effusion is suspected. The patient swallowed water-soluble contrast in an upright position without difficulty. Esophagus demonstrates normal contour and motility. Postprocedural changes are present at the esophagogastric junction. The esophagogastric junction is patent and there is no leakage of contrast to indicate perforation. IMPRESSION: No evidence for postoperative complication. Real Estate Investor: JAKUB Transcribe Date/Time: Apr 03 2025 8:37A Dictated by : JOVI VEGA MD This examination was interpreted and the report reviewed and electronically signed by: JOVI VEGA MD on Apr 03 2025 8:39AM EST [id number] CN [facility] ALLIED HEALTHon 04-02-2025 ALLIED HEALTH HNO ID: [id number] Author: TERRI GARDINER Chaplain Service: Spiritual Care Author Type: Car Framer Type: Allied Health Filed: 04/02/2025 07:04 Note Text: SPIRITUAL CARE PROGRESS NOTE SERVICE DATE: 04/02/2025 SERVICE TIME: 6:30 AM As printing worker supervisor, visited patient and loved ones in presurgery area. Listened empathetically and offered emotional and spiritual support. Prayed with patient and loved ones. Informed patient of 30/05 spiritual care. To contact the Spiritual Care Department: Please call [phone]. SIGNATURE: Chaplain Alka PATIENT NAME: Francia Gama DATE: April 02, 2025 TIME: 7:03 AM PAGER/CONTACT #: [phone] [facility] ANES POSTPROC EVALon 025 ANES POSTPROC EVAL HNO ID: [id number] Author: AVA JUSTIN MD Service: Anesthesiology Author Type: Anesthesiologist Type: Anesthesia Postprocedure Evaluation Filed: 04/02/2025 16:08 Note Text: POST ANESTHESIA EVALUATION NOTE : 1960 Procedure Summary Date: 04/02/25 Room / Location: [place] OR [address] [place] [address] OR Anesthesia Start: 0716 Anesthesia Stop: 1240 Procedures: LAPAROSCOPIC RPR PARAESOHAGEAL HERNIA W/ FUNDOPLASTY W/ MESH--Laparoscopic, possible open, paraesophageal hernia repair with Rosenda fundoplicatio- revision rosenda takedown (Abdomen) EGD (Abdomen) Diagnosis: Gastroesophageal reflux disease without esophagitis Paraesophageal hernia Hypertension, unspecified type Body mass index 30.0-30.9, adult (Gastroesophageal reflux disease without esophagitis [K21.9]) (Paraesophageal hernia [K44.9]) (Hypertension, unspecified type [I10]) (Body mass index 30.0-30.9, adult [Z68.30]) Surgeons: Mitra Saavedra MD Responsible Provider: Ava Justin MD Anesthesia Type: general ASA Status: 2 Anesthesia Type: general Airway Type: ETT Last Vitals Vitals Value Taken Time BP 154/94 04/02/25 1456 Temp 36.6 ?C (97.9 ?F) 04/02/25 1430 HR SpO2 81 04/02/25 1456 Resp 16 04/02/25 1456 SpO2 91 % 04/02/25 1456 Vitals shown include unfiled device data. Post Anesthesia Patient Status Anticipated Disposition: inpatient floor planned admission. Neurological Status: aware and responsive. Pulmonary Status: breathing comfortably on supplemental oxygen Airway Control: returned to baseline unsupported. Cardiovascular Status: stable. Pain Management: clinically adequate Postoperative Hydration: acceptable. Intraoperative Events: no significant anesthesia events Post Operative Nausea/Vomiting Status: no significant post operative nausea or vomiting Recommendation: further care per PACU/ICU/floor team. Anesthesia Observations No Documentation SIGNATURE: Ava Justin MD PATIENT NAME: Francia Gama DATE: April 02, 2025 TIME: 4:08 PM CSN: [id number] [facility] ANES PRE-OPon 04-02-2025 ANES PRE-OP HNO ID: [id number] Author: SARTHAK MAHAN MD Service: Anesthesiology Author Type: Physician Type: Anesthesia Preprocedure Evaluation Filed: 04/02/2025 07:48 Note Text: ANESTHESIOLOGY DAY OF SURGERY NOTE : 1960 Procedure Information Anesthesia Start Date/Time: 04/02/25 0716 Procedures: LAPAROSCOPIC RPR PARAESOHAGEAL HERNIA W/ FUNDOPLASTY W/ MESH--Laparoscopic, possible open, paraesophageal hernia repair with Rosenda fundoplicatio- revision rosenda takedown (Abdomen) EGD (Abdomen) TRANSFUSION BLOOD (Abdomen) Location: [facility] OR [facility] OR Surgeons: Mitra Saavedra MD Estimated body mass index is 29.62 kg/m? as calculated from the following: Height as of 03/26/25: 165.1 cm (5' 5). Weight as of 03/26/25: 80.7 kg (178 lb). Most recent hematocrit and potassium results: Hematocrit 39.9 03/26/2025 Potassium 3.7 03/26/2025 Relevant Problems ANESTHESIA (+) AARON (obstructive sleep apnea) CARDIO (+) Essential hypertension, benign (+) Hypertension GI (+) Gastroesophageal reflux disease with esophagitis without hemorrhage (+) Gastroesophageal reflux disease without esophagitis (+) Paraesophageal hernia PULMONARY (+) AARON (obstructive sleep apnea) I - PHYSICAL EVALUATION AIRWAY Patient intubated: No. Tracheostomy tube not present Mallampati: II. TM distance: >3 FB. Neck ROM: full ROM without neurological symptoms. Mouth opening: adequate. Short neck: no. Thick neck: no DENTAL Dental findings: teeth intact. II - ANESTHESIA PLAN ASA Score: 2 Anesthetic Plan: general Airway type: ETT The patient is not a current smoker. NPO Status: adequate Beta Sarah Monitoring Plan Monitoring plan: standard ASA. Post Procedure Analgesic Plan Postoperative analgesic plan: multimodal analgesia. Informed Consent Anesthetic risks, benefits, alternatives, personnel and consent discussed: yes. Patient / Responsible Libertarian agrees to proceed: yes Patient / Surrogate agrees to blood products: Yes Potential Anesthesia issues that may suggest increased risk of complications or contraindication to planned procedure: none. Vitals Value Taken Time BP 145/99 04/02/25 0605 Pulse 77 04/02/25 0605 Resp 16 04/02/25 0605 Temp 36.4 ?C (97.5 ?F) 04/02/25 0605 SpO2 98 % 04/02/25 0605 Facility-Administere d Medications as of 04/02/2025 Medication Dose Route Frequency lidocaine (PF) 10 mg/mL (1 %) 1-2 mg injection (XYLOCAINE) 0.1-0.2 mL INTRADERMAL PRN lactated ringers iv infusion 5-30 mL/hr INTRAVENOUS CONTINUOUS NaCl 0.9% iv flush bag 20 mL INTRAVENOUS PRN cefOXitin 2 g in NaCl 0.9% 100 mL Vial-Bag (MEFOXIN) 2 g INTRAVENOUS Pre-Op Once [COMPLETED] acetaminophen 975 mg CUP (TYLENOL) 975 mg ORAL Pre-Op Once [COMPLETED] celecoxib 200 mg cap(s) (CeleBREX) 200 mg ORAL Pre-Op Once [COMPLETED] scopolamine (delivers 1 mg over 3 days) 1 patch (TRANSDERM-SCOP) 1 patch TRANSDERMAL ONCE scopolamine - VERIFY patch OTHER q 8 H [START ON 04/05/2025] scopolamine - REMOVE PATCH OTHER ONCE Outpatient Medications as of 04/02/2025 Medication Sig fexofenadine (BETTY) 180 mg tablet Take 1 tablet by mouth once daily. losartan-hydroCHLORO thiazide (HYZAAR) 100-12.5 mg per tablet Take 1 tablet by mouth once daily. Omeprazole Magnesium (PRILOSEC OTC) 20 mg tablet Take 20 mg by mouth once daily. amLODIPine (NORVASC) 10 mg tablet Take 1 tablet by mouth once daily. DULoxetine (CYMBALTA) 30 mg capsule Take 1 capsule by mouth every afternoon. buPROPion XL (WELLBUTRIN XL) 300 mg 24 hr tablet Take 300 mg by mouth once daily. Cholecalciferol, Vitamin D3, 50 mcg (2,000 unit) cap Take 1 capsule by mouth once daily. fluticasone (FLONASE) 50 mcg/actuation nasal spray Use 2 (TWO) sprays IN EACH NOSTRIL DAILY DIRECTED Gatorade Sports Drink Use as directed for Miralax / Gatorade Bowel Prep Kit I have interviewed and examined the patient. I have reviewed the medical record and/or the pre-anesthesia evaluation, pertinent labs, and test results. This contains updated information obtained within 48 hours of Surgery/Procedure. SIGNATURE: Sarthak Mahan MD PATIENT NAME: Francia Gama DATE: April 02, 2025 TIME: 7:47 AM CSN: [id number] Normal [facility] CBC W Auto Differential pane l (Bld)on 04-02-2025 Basophils (Bld) [#/Vol] 10*3/uL Normal <0.11 A [facility] Comment on above: Order Comment: Speci men Type: BLOOD SPECIMENOrdering Facility: [facility] Address: [address] [place] [address] Performed By: #### 5 7021-8 ####[facility] LABORATORYCLIA [id number] [address] [place] Basophils/100 WBC (Bld) 0.1 % Normal A [facility] Comment on above: Order Comment: Speci men Type: BLOOD SPECIMENOrdering Facility: [facility] Address: [address] [place] [address] Performed By: #### 5 7021-8 ####[facility] LABORATORYCLIA [id number] [address] [place] Eosinophils (Bld) [#/Vol] 0.04 10*3/uL Normal <0.46 [facility] Comment on above: Order Comment: Speci men Type: BLOOD SPECIMENOrdering Facility: [facility] Address: [address] [place] [address] Performed By: #### 5 7021-8 ####[facility] LABORATORYCLIA [id number] [address] [place] Eosinophils/100 WBC (Bld) 0.3 % Normal [facility] Comment on above: Order Comment: Speci men Type: BLOOD SPECIMENOrdering Facility: [facility] Address: [address] [place] [address] Performed By: #### 5 7021-8 ####[facility] LABORATORYCLIA [id number] [address] [place] Erythrocyte distribution width (RBC) [Ratio] 15.5 % High 11.5-15.0 [facility] Comment on above: Order Comment: Speci men Type: BLOOD SPECIMENOrdering Facility: [facility] Address: [address] [place] [address] Performed By: #### 5 7021-8 ####[facility] LABORATORYCLIA [id number] [address] [place] Hematocrit (Bld) [Volume fraction] 37.3 % Normal 36.0-46.0 [facility] Comment on above: Order Comment: Speci men Type: BLOOD SPECIMENOrdering Facility: [facility] Address: [address] [place] [address] Performed By: #### 5 7021-8 ####[facility] LABORATORYCLIA [id number] [address] [place] Hemoglobin (Bld) [Mass/Vol] 12.2 g/dL Normal 11.5-15.5 [facility] Comment on above: Order Comment: Speci men Type: BLOOD SPECIMENOrdering Facility: [facility] Address: [address] [place] [address] Performed By: #### 5 7021-8 ####[facility] LABORATORYCLIA [id number] [address] [place] Immature granulocytes (Bld) [#/Vol] 0.10 10*3/uL High <0.10 [facility] Comment on above: Order Comment: Speci men Type: BLOOD SPECIMENOrdering Facility: [facility] Address: [address] [place] [address] Performed By: #### 5 7021-8 ####[facility] LABORATORYCLIA [id number] [address] [place] Immature granulocytes/100 WBC (Bld) 0.7 % Normal [facility] Comment on above: Order Comment: Speci men Type: BLOOD SPECIMENOrdering Facility: [facility] Address: [address] [place] [address] Performed By: #### 5 7021-8 ####[facility]ORATORYCLIA [id number] [address] [place] Lymphocytes (Bld) [#/Vol] 1.19 10*3/uL Normal 1.00-4.0 0 [facility] Comment on above: Order Comment: Speci men Type: BLOOD SPECIMENOrdering Facility: [facility] Address: [address] [place] [address] Performed By: #### 5 7021-8 ####[facility] LABORATORYCLIA [id number] [address] Lymphocytes/100 WBC (Bld) 7.8 % Normal [facility] Comment on above: Order Comment: Speci men Type: BLOOD SPECIMENOrdering Facility: [facility] Address: [address] [place] [address] Performed By: #### 5 7021-8 ####[facility] LABORATORYCLIA [id number] [address] [place] MCH (RBC) [Entitic mass] 29.3 pg Normal 26.0-34.0 [facility] Comment on above: Order Comment: Speci men Type: BLOOD SPECIMENOrdering Facility: [facility] Address: [address] [place] [address] Performed By: #### 5 7021-8 ####[facility] LABORATORYCLIA [id number] [address] [place] MCHC (RBC) [Mass/Vol] 32.7 g/dL Normal 30.5-36.0 [facility] Comment on above: Order Comment: Speci men Type: BLOOD SPECIMENOrdering Facility: [facility] Address: [address] [place] [address] Performed By: #### 5 7021-8 ####[facility] LABORATORYCLIA [id number] [address] [place] MCV (RBC) [Entitic vol] 89.4 fL Normal 80.0-100.0 A [facility] Comment on above: Order Comment: Speci men Type: BLOOD SPECIMENOrdering Facility: [facility] Address: [address] [place] [address] Performed By: #### 5 7021-8 ####[facility]ORATORYCLIA [id number] [place] [address] [place] Monocytes (Bld) [#/Vol] 0.29 10*3/uL Normal <0.87 [facility] Comment on above: Order Comment: Speci men Type: BLOOD SPECIMENOrdering Facility: [facility] Address: [address] [place] [address] Performed By: #### 5 7021-8 ####[facility]ATORYCLIA [id number] [address] [place] Monocytes/100 WBC (Bld) 1.9 % Normal A [facility] Comment on above: Order Comment: Speci men Type: BLOOD SPECIMENOrdering Facility: [facility] Address: [address] [place] [address] Performed By: #### 5 7021-8 ####[facility] LABORATORYCLIA [id number] [address] [place] Neutrophils (Bld) [#/Vol] 13.67 10*3/uL High 1.45-7. 50 [facility] Comment on above: Order Comment: Speci men Type: BLOOD SPECIMENOrdering Facility: [facility] Address: [address] [place] [address] Performed By: #### 5 7021-8 ####[facility] LABORATORYCLIA [id number] [address] [place] Neutrophils/100 WBC (Bld) 89.2 % Normal [facility] Comment on above: Order Comment: Speci men Type: BLOOD SPECIMENOrdering Facility: [facility] Address: [address] [place] [address] Performed By: #### 5 7021-8 ####[facility] LABORATORYCLIA [id number] [address] [place] Platelet mean volume (Bld) [Entitic vol] 9.8 fL Normal 9.0-12.7 [facility] Comment on above: Order Comment: Speci men Type: BLOOD SPECIMENOrdering Facility: [facility] Address: [address] [place] [address] Performed By: #### 5 7021-8 ####[facility] LABORATORYCLIA [id number] [address] Platelets (Bld) [#/Vol] 292 10*3/uL Normal 150-400 [facility] Comment on above: Order Comment: Speci men Type: BLOOD SPECIMENOrdering Facility: [facility] Address: [address] [place] [address] Result Comment: No c lot detected. Performed By: #### 5 7021-8 ####[facility] LABORATORYCLIA [id number] [address] RBC (Bld) [#/Vol] 4.17 10*6/uL Normal 3.90-5.20 [facility] Comment on above: Order Comment: Speci men Type: BLOOD SPECIMENOrdering Facility: [facility] Address: [address] [place] [address] Performed By: #### 5 7021-8 ####[facility] LABORATORYCLIA [id number] [address] WBC (Bld) [#/Vol] 15.31 10*3/uL High 3.70-11.00 [facility] Comment on above: Order Comment: Speci men Type: BLOOD SPECIMENOrdering Facility: [facility] Address: [address] [place] [address] Performed By: #### 5 7021-8 ####[facility] LABORATORYCLIA [id number] [address] HISTORY PHYSICALon HISTORY PHYSICAL HNO ID: [id number] Author: MITRA SAAVEDRA MD Service: General Surgery Author Type: Resident Type: H&P Filed: 04/02/2025 07:11 Note Text: Attestation signed by Mitra Saavedra MD at 04/02/2025 7:11 AM I saw and evaluated/examined the patient with the resident and personally participated in the benton components. I have reviewed the resident's note and discussed the case and management of the patient's care with the resident. I agree with the above assessment and plan unless otherwise noted below. Plan of care discussed with: Provider, RN, Patient. UPDATED HISTORY AND PHYSICAL EXAMINATION SERVICE DATE: 04/02/2025 SERVICE TIME: 7AM PHYSICAL EXAM MUST BE COMPLETED ON ADMISSION The History and Physical (completed in the past 30 days) has been reviewed and the patient has been examined. The contents accurately reflect the patient's condition with the following additions or revisions since the HANDP was completed. Examination indicates no changes. This HANDP can be found in the Electronic Medical Record dated 03/26. SIGNATURE: Ortiz Mcmullen DO PATIENT NAME: Francia Gama DATE: April 02, 2025 TIME: 7:09 AM Normal [facility] OPERATIVE NOon 04-02-2025 OPERATIVE NO HNO ID: [id number] Author: MITRA SAAVEDRA MD Service: General Surgery Author Type: Physician Type: Operative Report Filed: 04/02/2025 12:38 Note Text: OPERATIVE/PROCEDURE REPORT LOG ID: [id number] Surgery/Procedure Date: 04/02/2025 Incision/Procedure Start Time: 7:47 AM Incision Close/Procedure End Time: 12:21 PM Surgeon(s)/Procedura list(s) and Application Integrator(s): Surgeons and Role: * Mitra Saavedra MD - Primary * Ortiz Mcmullen DO - Resident - Assisting Grout Machine Operator: Chris Ying SA Procedure(s): 1.- Laparoscopic repair of RECURRENT paraesophageal hernia - 22 modifier due to surgery being reoperative/revision with great amount of scar tissue and take down of previous Rosenda fundoplication 2.- Laparoscopic Rosenda fundoplication with mesh placement 3.- EGD 4.- Placement of bio-A mesh 5.- Bilateral Laparoscopic TAP Blocks Anesthesia: General Pre-Op/Pre-Procedure Diagnosis: Paraesophageal hernia and GERD Post-Op/Post-Procedu re Diagnosis: Paraesophageal hernia and GERD Operative Findings: Large type 3 recurrent Hiatal hernia repaired with posterior cruroplasty; 360 degree Rosenda fundoplication Operative Indication: Francia Gama is a 64 year old female that presented with a symptomatic recurrent paraesophageal hernia. We discussed the risks, benefits, alternatives, and potential complications, and the patient agreed to proceed. Procedure Details: In the pre-operative area a safety huddle was performed which included the patient and her family, nursing, anesthesia, and surgical teams; all members in attendance verified the correct patient, date of , MRN, and procedure to be performed. The patient was then taken to the operating room and placed supine on the operating table. General endotracheal anesthesia was induced. A song catheter was placed under sterile conditions. The patient's extremities were secured to the operating room table; a pillow was placed under her knees; and all pressure points were appropriately padded. The abdomen was prepped and draped in the standard sterile fashion. A surgical time out was performed. The peritoneal cavity was accessed using a 5-mm trocar in the left upper quadrant. Pneumoperitoneum was established and atraumatic entry was verified. One additional 5-mm trocar was placed in the left upper quadrant for the camera followed by a 5-mm and a 12-mm in the right upper quadrant. The Ligasure device was used to take down left upper quadrant adhesions and also take down one gastropexy suture. Portion of the peritoneum of the abdominal wall was taken down in order to prevent injury to the stomach that was tacked to the anterior abdominal wall. Next, the [place] liver retractor was inserted through a separate stab incision in the epigastrium and positioned for proper retraction using the FastTrack retractor. We encountered a recurrent paraesophageal hernia. There were several adhesions of the stomach to the undersurface of the liver, which were taken down with the Ligasure device. Next, I turned my attention to taking down the adhesions of the stomach and omentum from the caudate lobe. There were also a large amount of adhesions to the bilateral crura; these were carefully taken down and the right and left crura were identified. It was noted that the entire fundoplication was above the level of the crura. The gastrohepatic ligament was opened and dissected up to the right gibran. The peritoneum overlying the right gibran was opened and dissection carried circumferentially towards the left gibran. The edge of the hernia sac was grasped and pulled inferiorly and with blunt dissection, the sac was released from the mediastinal adhesions. This was then repeated on the left side. The mediastinal adhesions were very dense. At this point, we proceeded to divide several remaining short gastric vessels. The dissector was used to divide the lower portion of the gastrocolic ligament and dissection was continued cephalad towards the left gibran. At this point, the hernia sac was completely released from the left crural attachments - again, there was a large amount of adhesions between the herniated fundus and the left gibran. The retroesophageal space was then divided and a Cottonoid was passed and used for retraction. We then proceeded with circumferential dissection in the mediastinum with the esophagus until the hernia sac was completely reduced. This was a very difficult and tedious portion of the dissection due to the presence of dense scar tissue and adhesions. The left pleura was opened. A lighted bougie was placed due to the dense scar tissue creating difficulty identifying the esophagus. With repeat blunt dissection, we were able to obtain adequate esophageal length; this process was quite laborious as it was difficult to obtain appropriate intra-abdominal length. Multiple repeat assessments were performed with the EGD unti (more content not included)... Normal [facility] Basic metabolic 2000 panelon 03-26-2025 Anion gap [Moles/Vol] 10 mmol/L Normal 8-15 [facility] Comment on above: Order Comment: Speci men Type: BLOOD SPECIMENOrdering Facility: [facility] Address: [address] [place] [address] [place] [address] Performed By: #### 2 4321-2 ####[facility] LABORATORYCLIA [id number] [place] [address] [place] Calcium [Mass/Vol] 9.3 mg/dL Normal 8.5-10.2 [facility] Comment on above: Order Comment: Speci men Type: BLOOD SPECIMENOrdering Facility: [facility] Address: [address] [place] [address] Performed By: #### 2 4321-2 ####[facility] LABORATORYCLIA [id number] [address] [place] Chloride [Moles/Vol] 103 mmol/L Normal 98-107 [facility] Comment on above: Order Comment: Speci men Type: BLOOD SPECIMENOrdering Facility: [facility] Address: [address] [place] [address] Performed By: #### 2 4321-2 ####[facility] LABORATORYCLIA [id number] [address] [place] CO2 [Moles/Vol] 31 mmol/L High 22-30 [facility] Comment on above: Order Comment: Speci men Type: BLOOD SPECIMENOrdering Facility: [facility] Address: [address] [place] [address] Performed By: #### 2 4321-2 ####[facility] LABORATORYCLIA [id number] [address] OF [facility] Creatinine [Mass/Vol] 0.69 mg/dL Normal 0.58-0.96 [facility] Comment on above: Order Comment: Speci men Type: BLOOD SPECIMENOrdering Facility: [facility] Address: [address] [place] [address] Performed By: #### 2 4321-2 ####[facility] LABORATORYCLIA [id number] [address] Creatinine and Glomerular filtration rate.predicted panel (S/P/Bld) 98 mL/min/1.73m??? Normal >=60 [facility] Comment on above: Order Comment: Speci men Type: BLOOD SPECIMENOrdering Facility: [facility] Address: [address] [place] [address] Result Comment: Laurel mated Glomerular Filtration Rate (eGFR) is calculated using the 2020 CKD-EPI creatinine equation. This equation utilizes serum creatinine, sex, and age as parameters. The creatinine assay has traceable calibration to isotope dilution-mass spectrometry. Refer to KDIGO guidelines for clinical interpretation. In patients with unstable renal function, e.g. those with acute kidney injury, the eGFR may not accurately reflect actual GFR. Performed By: #### 2 4321-2 ####[facility] LABORATORYCLIA [id number] [place] [address] [place] Glucose [Mass/Vol] 110 mg/dL High 74-99 [facility] Comment on above: Order Comment: Sergio romero Type: BLOOD SPECIMENOrdering Facility: [facility] Address: [address] [place] [address] Result Comment: The [place] Diabetes Association (ADA) provides guidance for cutoff values for fasting glucose and random glucose. The ADA defines fasting as no caloric intake for at least 8 hours. Fasting plasma glucose results between 100 to 125 mg/dL indicate increased risk for diabetes (prediabetes). Fasting plasma glucose results greater than or equal to 126 mg/dL meet the criteria for diagnosis of diabetes. In the absence of unequivocal hyperglycemia, results should be confirmed by repeat testing. In a patient with classic symptoms of hyperglycemia or hyperglycemic crisis, random plasma glucose results greater than or equal to 200 mg/dL meet the criteria for diagnosis of diabetes. Reference: Standards of Medical Care in Diabetes 2016, [place] [employer] Association. Diabetes Care. 2016.39(Suppl 1). Performed By: #### 2 4321-2 ####[facility] LABORATORYCLIA [id number] [place] [address] [place] Potassium [Moles/Vol] 3.7 mmol/L Normal 3.7-5.1 [facility] Comment on above: Order Comment: Sergio romero Type: BLOOD SPECIMENOrdering Facility: [facility] Address: [address] [place] [address] Performed By: #### 2 4321-2 ####[facility]ORATORYCLIA [id number] [place] [address] [place] Sodium [Moles/Vol] 144 mmol/L Normal 136-144 [facility] Comment on above: Order Comment: Sergio [facility] Type: BLOOD SPECIMENOrdering Facility: [facility] Address: [address] [place] [address] Performed By: #### 2 4321-2 ####[facility] LABORATORYCLIA [id number] [address] STATES [facility] Urea nitrogen [Mass/Vol] 12 mg/dL Normal - [facility] Comment on above: Order Comment: Speci men Type: BLOOD SPECIMENOrdering Facility: [facility] Address: [address] [place] [address] Performed By: #### 2 4321-2 ####[facility]ORATORYCLIA [id number] [address] [place] CBC W Auto Differential pane l (Bld)on 03-26-2025 Basophils (Bld) [#/Vol] 0.03 10*3/uL Normal <0.11 [facility] Comment on above: Order Comment: Speci men Type: BLOOD SPECIMENOrdering Facility: [facility] Address: [address] [place] [address] Performed By: #### 5 7021-8 ####[facility] LABORATORYCLIA [id number] [address] STATES OF [facility] Basophils/100 WBC (Bld) 0.4 % Normal A [facility] Comment on above: Order Comment: Speci men Type: BLOOD SPECIMENOrdering Facility: [facility] Address: [address] [place] [address] Performed By: #### 5 7021-8 ####[facility]ORATORYCLIA [id number] [address] Differential cell count method Nom (Bld) Auto Normal [facility] Comment on above: Order Comment: Speci men Type: BLOOD SPECIMENOrdering Facility: [facility] Address: [address] [place] [address] Performed By: #### 5 7021-8 ####[facility]ORATORYCLIA [id number] [place] [address] [place] Eosinophils (Bld) [#/Vol] 0.29 10*3/uL Normal <0.46 [facility] Comment on above: Order Comment: Speci men Type: BLOOD SPECIMENOrdering Facility: [facility] Address: [address] [place] [address] Performed By: #### 5 7021-8 ####[facility]ORATORYCLIA [id number] [address] [place] [facility] Eosinophils/100 WBC (Bld) 4.2 % Normal [facility] Comment on above: Order Comment: Speci men Type: BLOOD SPECIMENOrdering Facility: [facility] Address: [address] [place] [address] Performed By: #### 5 7021-8 ####[facility]ORATORYCLIA [id number] [address] [place] Erythrocyte distribution width (RBC) [Ratio] 15.3 % High 11.5-15.0 [facility] Comment on above: Order Comment: Speci men Type: BLOOD SPECIMENOrdering Facility: [facility] Address: [address] [place] [address] Performed By: #### 5 7021-8 ####[facility]ORATORYCLIA [id number] [address] [place] Hematocrit (Bld) [Volume fraction] 39.9 % Normal 36.0-46.0 [facility] Comment on above: Order Comment: Speci men Type: BLOOD SPECIMENOrdering Facility: [facility] Address: [address] [place] [address] Performed By: #### 5 7021-8 ####[facility]ORATORYCLIA [id number] [address] [place] Hemoglobin (Bld) [Mass/Vol] 12.7 g/dL Normal 11.5-15.5 [facility] Comment on above: Order Comment: Speci men Type: BLOOD SPECIMENOrdering Facility: [facility] Address: [address] [place] [address] Performed By: #### 5 7021-8 ####[facility]ORATORYCLIA [id number] [address] [place] Immature granulocytes (Bld) [#/Vol] 10*3/uL Normal <0.10 [facility] Comment on above: Order Comment: Speci men Type: BLOOD SPECIMENOrdering Facility: [facility] Address: [address] [place] [address] Performed By: #### 5 7021-8 ####[facility]ORATORYCLIA [id number] [address] Immature granulocytes/100 WBC (Bld) 0.1 % Normal [facility] Comment on above: Order Comment: Speci men Type: BLOOD SPECIMENOrdering Facility: [facility] Address: [address] [place] [address] Performed By: #### 5 7021-8 ####[facility]ORATORYCLIA [id number] [address] Lymphocytes (Bld) [#/Vol] 1.26 10*3/uL Normal 1.00-4.0 0 [facility] Comment on above: Order Comment: Speci men Type: BLOOD SPECIMENOrdering Facility: [facility] Address: [address] [place] [address] Performed By: #### 5 7021-8 ####[facility]ORATORYCLIA [id number] [address] Lymphocytes/100 WBC (Bld) 18.4 % Normal [facility] Comment on above: Order Comment: Speci men Type: BLOOD SPECIMENOrdering Facility: [facility] Address: [address] [place] [address] Performed By: #### 5 7021-8 ####[facility]ORATORYCLIA [id number] [address] [place] MCH (RBC) [Entitic mass] 29.0 pg Normal 26.0-34.0 [facility] Comment on above: Order Comment: Speci men Type: BLOOD SPECIMENOrdering Facility: [facility] Address: [address] [place] [address] Performed By: #### 5 7021-8 ####[facility]ORATORYCLIA [id number] [address] [place] MCHC (RBC) [Mass/Vol] 31.8 g/dL Normal 30.5-36.0 [facility] Comment on above: Order Comment: Speci men Type: BLOOD SPECIMENOrdering Facility: [facility] Address: [address] [place] [address] Performed By: #### 5 7021-8 ####[facility]ORATORYCLIA [id number] [address] [place] MCV (RBC) [Entitic vol] 91.1 fL Normal 80.0-100.0 A [facility] Comment on above: Order Comment: Speci men Type: BLOOD SPECIMENOrdering Facility: [facility] Address: [address] [place] [address] Performed By: #### 5 7021-8 ####[facility]ORATORYCLIA [id number] [address] [place] Monocytes (Bld) [#/Vol] 0.61 10*3/uL Normal <0.87 [facility] Comment on above: Order Comment: Speci men Type: BLOOD SPECIMENOrdering Facility: [facility] Address: [address] [place] [address] Performed By: #### 5 7021-8 ####[facility]ORATORYCLIA [id number] [address] [place] Monocytes/100 WBC (Bld) 8.9 % Normal [facility] Comment on above: Order Comment: Speci men Type: BLOOD SPECIMENOrdering Facility: [facility] Address: [address] [place] [address] Performed By: #### 5 7021-8 ####[facility]ORATORYCLIA [id number] [address] [place] Neutrophils (Bld) [#/Vol] 4.63 10*3/uL Normal 1.45-7.5 0 [facility] Comment on above: Order Comment: Speci men Type: BLOOD SPECIMENOrdering Facility: [facility] Address: [address] [place] [address] Performed By: #### 5 7021-8 ####[facility]ATORYCLIA [id number] [address] Neutrophils/100 WBC (Bld) 68.0 % Normal [facility] Comment on above: Order Comment: Speci men Type: BLOOD SPECIMENOrdering Facility: [facility] Address: [address] [place] [address] Performed By: #### 5 7021-8 ####[facility]ORATORYCLIA [id number] [address] [place] Nucleated RBC (Bld) [#/Vol] 10*3/uL Normal <0.01 [facility] Comment on above: Order Comment: Speci men Type: BLOOD SPECIMENOrdering Facility: [facility] Address: [address] [place] [address] Performed By: #### 5 7021-8 ####[facility]ORATORYCLIA [id number] [address] Nucleated RBC/100 WBC (Bld) [Ratio] 0.0 /100 WBC Normal [facility] Comment on above: Order Comment: Speci men Type: BLOOD SPECIMENOrdering Facility: [facility] Address: [address] [place] [address] Performed By: #### 5 7021-8 ####[facility]ORATORYCLIA [id number] [address] [place] Platelet mean volume (Bld) [Entitic vol] 10.2 fL Normal 9.0-12.7 [facility] Comment on above: Order Comment: Speci men Type: BLOOD SPECIMENOrdering Facility: [facility] Address: [address] [place] [address] Performed By: #### 5 7021-8 ####[facility]ATORYCLIA [id number] [address] [place] Platelets (Bld) [#/Vol] 292 10*3/uL Normal 150-400 [facility] Comment on above: Order Comment: Speci men Type: BLOOD SPECIMENOrdering Facility: [facility] Address: [address] [place], [place] [address] Performed By: #### 5 7021-8 ####[facility]ORATORYCLIA [id number] [address] OF [facility] RBC (Bld) [#/Vol] 4.38 10*6/uL Normal 3.90-5.20 [facility] Comment on above: Order Comment: Speci men Type: BLOOD SPECIMENOrdering Facility: [facility] Address: [address] [place] [address] Performed By: #### 5 7021-8 ####[facility]ATORYCLIA [id number] [address] WBC (Bld) [#/Vol] 6.83 10*3/uL Normal 3.70-11.00 [facility] Comment on above: Order Comment: Speci men Type: BLOOD SPECIMENOrdering Facility: [facility] Address: [address] [place] [address] Performed By: #### 5 7021-8 ####[facility]ORATORYCLIA [id number] [address] HISTORY PHYSICALon HISTORY PHYSICAL HNO ID: [id number] Author: ALEJANDRO ALVES APRN.[employer] Service: ? Author Type: Nurse Practitioner Type: H&P Filed: 03/26/2025 10:40 Note Text: [facility] HISTORY AND PHYSICAL EXAMINATION SERVICE DATE: 03/26/2025 SERVICE TIME: 10:40 AM PRIMARY CARE PHYSICIAN: Julisa Cheung MD Assessment Patient has the following medical conditions which may affect az-operative course: Paraesophageal hernia Surgery scheduled with Dr. Saavedra on 04/02/2025 Preop examination Patient has the following medical conditions which may affect az-operative course addressed in assessment and plan today. Hypertension Controlled with medications Metoprolol - Take morning of surgery Amlodipine - Take morning of surgery Losartan-HCTZ - Hold morning of surgery BP elevated in PST, pt denies JIMÉNEZ, CP or vision changes. Pt advised to monitor and discuss with PCP. Pt states she has not taken BP medication this morning. Instructed to take medication when she gets home. AARON (obstructive sleep apnea) CPAP Gastroesophageal reflux disease without esophagitis Controlled with pantoprazole, instructed to take morning of surgery ANESTHESIA FINDINGS: Intubation History: No history of difficult intubation. No abnormal airway history Significant Anesthesia Considerations: none Airway History: No history of difficult airway No abnormal airway history Mccollum Activity Status Index: METS: Climb a flight of stairs or walk up a hill (5.50 METs) DASI Score: 5.5 Patient denies any chest pain or undue shortness of breath with the above physical activity. I - PHYSICAL EVALUATION AIRWAY Patient intubated: No. DENTAL Dental findings: broken tooth. II - ANESTHESIA PLAN Anesthetic Plan: general Beta Sarah Monitoring Plan Post Procedure Analgesic Plan Prepared for Surgery: CONSULTS: Patient does not require consults for optimization at this time Planned Anesthetic: general The Following Tests/Procedures Have Been Initiated: Orders Placed This Encounter meloxicam (MOBIC) 15 mg tablet Sig: Take 1 tablet by mouth once daily. REASON FOR VISIT: Francia Gama is a 64 year old female who is scheduled for Procedure(s): LAPAROSCOPIC RPR PARAESOHAGEAL HERNIA W/ FUNDOPLASTY W/ MESH--Laparoscopic, possible open, paraesophageal hernia repair with Rosenda fundoplicatio- revision rosenda takedown (N/A) EGD (N/A) TRANSFUSION BLOOD (N/A) at the request of Mitra Jones MD for routine HANDP. My final recommendation will be communicated back to the requesting physician by way of shared medical record or letter. The reason for this visit is to perform a comprehensive review of the patient's past medical history, assess their current health status and obtain any additional testing required based on anesthesia guidelines. We will also identify any potential anesthesia problems or contraindications to the planned procedure. Subjective The patient has the following: COVID-19 Immunization Status Current Care Gaps Covid-19 Vaccine ( season) Overdue since 07/08/2024 02/27/2021 Imm Admin: COVID-19 original vaccine, full dose, monovalent (MODERNA) 01/30/2021 Imm Admin: COVID-19 original vaccine, full dose, monovalent (MODERNA) CHIEF COMPLAINT: paraesophageal hernia HPI: Patient is a 64 year old female here for a preoperative exam. Pt underwent laparoscopic hiatal hernia repair (large type 3) with Rosenda fundoplication on 08/27/15 for large hiatal hernia. She was doing well until a year ago. She complains of abdominal discomfort, frequent belching and regurgitation. She also states that she has loss of appetite. EGD 10/12/2024 showed a recurrent hernia. Today in PAT she rates abdominal pain 3/10 describing it a dull. Pt discussed with surgeon and agrees to surgical intervention. REVIEW OF SYSTEMS: General: Negative for: unintentional weight change, malaise and fever. Neurological: Negative for: headaches, seizures and strokes. Respiratory: Positive for: obstructive sleep apnea. Negative for: asthma, COPD, tobacco use and URI < 2 weeks. Cardiovascular: Positive for: DVT/PE and hypertension Negative for: arrhythmia, CAD, chest pain, CHF and hyperlipidemia. GI: See HPI. Positive for: abdominal pain, GERD and vomiting Negative for: nausea. : Negative for: dysuria, hematuria and renal failure. COMMUNICATIONS ADMINISTRATOR: Negative for abnormal vaginal bleeding, abnormal vaginal discharge. Endocrine: Negative for: diabetes mellitus and hypothyroidism. Hematology: Negative for: anemia, factor V Leiden, von Willebrand disease and chronic anti-coagulation/julien telet meds. Oncology: No history of CA metastasis, chemo within 30 days, or radiotherapy within 90 days. No history of oncological symptoms or problems. Psych: Positive for: anxiety and depression. Musculoskeletal: Positive for: back pain. Negative for: join (more content not included)... Normal [facility] CNOVon 03-07-2025 CNOV Office Visit (AGGENS4) FRANCIA GAMA ([id number]) 1960 F Date Time Provider Department 03/07/25 8:00 AM MITRA SAAVEDRAENS4 During your visit today, we recorded the following information about you: Pulse Blood pressure Weight Height 84/minute 131/73 82.1 kg 1.651 m Magda Rebollar MA 03/07/2025 8:56 AM Signed Patient states she still has a lot of nausea. INDERJIT Gay Marita, MD 03/07/2025 8:56 AM Signed SURGICAL SERVICES HISTORY AND PHYSICAL EXAMINATION SERVICE DATE: 03/07/2025 SERVICE TIME: 8:38 AM PRIMARY CARE PHYSICIAN: Julisa Cheung MD SUBJECTIVE CHIEF COMPLAINT: hernia HISTORY OF PRESENT ILLNESS: Ms. Gama is a 64 year old female with a PMH of HTN (amlodipine, losartan), anxiety, depression (Wellbutrin), HLD, obesity (35.19--BMI 31.52--> 30.39), chronic lower back pain/spinal stenosis, GERD (Protonix), LE DVT (x1 in 06/26 after a fall; on Eliquis 3 months) who presents for follow up and weight check. Her weight is stable today at 181 pounds. She endorses continued nausea and frequent heartburn symptoms with regurgitation and poor appetite. Workup: - EGD (10/12/24): HG 4 GEJ consistent with recurrent hernia; loose wrap - Pathology: Predominantly antral-type gastric mucosa with minimal chronic gastritis and features of reactive gastropathy. - Morphologic features of Helicobacter pylori infection are not identified - UGI (08/30/24): Postoperative changes of Rosenda fundoplication. Recurrent moderate-sized hiatal hernia. Positive for gastroesophageal reflux. - Manometry (10/12/24): GEJOO - UGI (01/30/21): moderate-sized hiatal hernia. - GES (96182): WNL - EGD: reflux esophagitis, duodenitis, disrupted fundoplication with recurrent hiatal hernia - Pathology: Benign gastric mucosa with features of very mild reactive gastropathy. Duodenum, biopsy - No pathologic abnormalities. Esophagus, biopsy - Benign squamous mucosa showing no pathologic abnormalities. Per my previous clinic notes: She underwent laparoscopic hiatal hernia repair (large type 3) with Rosenda fundoplication on 08/27/15 due to chronic anemia and Jean's ulcers thought to be due to her large hiatal hernia. She has had good results with no symptoms of anemia, heartburn or regurgitation since that time - until about 8-12 months ago. She lost 40 pounds surrounding the time of hernia repair, but has regained that weight and remains stable around 190-203 pounds. Social Hx: former smoker who quit in 2011 with no relapses; she drinks 6 beers per week; she uses recreational marijuana (one bowel per day); she denies use of other drugs. 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 She lives with her daughter Maria L (works at [employer]) PSHx: lumbar laminectomy (L4/5), lap CCx, paraesophageal hernia repair (2014 w/ Dr. Skaggs), ANNA, left wrist fusion, ectopic PAST MEDICAL HISTORY: PAST MEDICAL HISTORY Diagnosis Date Acute deep vein thrombosis (DVT) of popliteal vein of left lower extremity (HCC) 06/2020 Eliquis x 3 months off now. After a fall Depression Dysphagia Essential hypertension, benign Generalized anxiety disorder GERD (gastroesophageal reflux disease) Hiatal hernia surgically corrected 2014; recurrent 10/12/24 AARON (obstructive sleep apnea) mild -no CPAP Spondylolisthesis of lumbar region PAST SURGICAL HISTORY: PAST SURGICAL HISTORY Procedure Laterality Date CAPSULE ENDOSCOPY SMALL BOWEL WITH EGD (HL,MM) 06/01/2015 COLONOSCOPY W/BIOPSY SINGLE/MULTIPLE 05/25/2015 EGD WITH BIOPSY(S) 05/27/2015 hiatal hernia; Dr. Killian EGD WITH BIOPSY(S) 04/10/2021 Dr. Saavedra EGD WITH BIOPSY(S) 10/12/2024 recurrent hiatal hernia; Dr. Saavedra LAMINECTOMY,LUMBAR 07/24/2015 L4-5 with facetectomy LAPS RPR PARAESPHGL HRNA INCL FUNDPLSTY W/MESH 08/27/2015 with anterior/posterior gastropexy; Dr. Skaggs LAPS SURG CHOLECYSTECTOMY W/CHOLANGIOGRAPHY 09/10/2008 nORMAL ioc LUMBAR SPINE FUSION COMBINED 05/07/2021 L4-5 w/iliac bone graft AND facetectomy MANOMETRY ESOPHAGEAL 10/12/2024 Dr. Saavedra TOTAL ABDOMINAL HYSTERECT W/WO RMVL TUBE OVARY 10/07/2007 TX ECTOPIC W/O SALPINGAND/OOPHORECT HEIDY WRIST SURGERY HX Left 05/07/2007 fusion wrist-partial WRIST SURGERY HX Left 04/07/2006 fusion wrist-partial FAMILY HISTORY: FAMILY HISTORY Problem Relation Age of Onset other (a fib) Mother Diabetes Mother other (HTn) Mother Coronary Artery Disease Father Heart Failure Father Diabetes Brother other (cardiac stents) Brother Heart Brother Heart Maternal Grandmother Cancer Maternal Grandfather Cancer Paternal Grandmother SOCIAL HISTORY: Social History Tobacco Use Smoking status: Former Current packs/day: 0.00 Types: Cigarettes Start date: 05/14/2002 Quit date: 11/12/2008 Years since quittin.3 Smokeless tobacco: Never Tobacco comments: (more content not included)... Normal [facility] Calculated very low density lipoprotein (VLDL) cholesterol measurementOrdered By: Julisa Cheung on 02-22-2025 VLDL Cholesterol 16 mg/dL 5-40 [facility] LDL calc ser/plasOrdered By: Julisa Cheung on 02-22-2025 LDL Cholesterol, Calculated 102 mg/dL [facility] Comment on above: Yymevedobm=746-590 m g/dL & Higher Torx=035 mg/dL or greater Lipid Profileon 02-22-2025 CHOL:HDL 3.29 Normal [facility] Comment on above: Performed By: #### L 500.4100 #### [facility] [address] [facility] [place] [facility] [id number] Cholesterol [Mass/Vol] 169 mg/dL Normal <=200 [facility] Comment on above: Result Comment: Chol esterol level, Desirable <200 mg/dL Borderline high cholesterol 200-239 mg/dL High cholesterol >=240 mg/dL Recommendations of the NCEP Adult Treatment Panel for the following risk-cutoff thresholds for the [place] population. Performed By: #### L 500.4100 #### [facility] [address] [facility] [place] [facility] [phone] Cholesterol in HDL [Mass/Vol] 51 mg/dL Normal [facility] Comment on above: Result Comment: Rosanna onal Cholesterol Education Program (NCEP) guidelines: <40 mg/dL: Low HDL-cholesterol (major risk factor for CHD) >= 60 mg/dL: High HDL-cholesterol (negative risk factor for CHD) HDL-cholesterol is affected by a number of factors, e.g. smoking, exercise, hormones, sex and age. Performed By: #### L 500.4100 #### [facility] [address] [place] [phone] Cholesterol in LDL [Mass/Vol] 102 mg/dL Normal [facility] Comment on above: Result Comment: Bord qbyicb=952-965 mg/dL Higher Lcnm=259 mg/dL or greater Performed By: #### L 500.4100 #### [facility] [address] [place], [address] Cholesterol in VLDL [Mass/Vol] 16 mg/dL Normal 5-40 [facility] Comment on above: Performed By: #### L 500.4100 #### [facility] [address] [place], [address] Triglyceride [Mass/Vol] 78 mg/dL Normal [facility] Comment on above: Result Comment: The drugs N-Acetylcysteine and Metamizole may falsely depress this assay. Normal range: <150 mg/dL Borderline High: 150-199 mg/dL High: 200-499 mg/dL Very High: >500 mg/dL Performed By: #### L 500.4100 #### [facility] [address] [place], [address] Screening total cholesterol/ high density lipoprotein (HDL) cholesterol ratioOrdered By: Julisa Cheung on 02-22-2025 Cholesterol.total/Cholest tia in HDL [Mass ratio] 3.29 {ratio} [facility] Serum or plasma cholesterol in HDL measurement (mass/volume)Ordered By: Julisa Cheung on 02-22-2025 Cholesterol in HDL [Mass/Vol] 51 mg/dL >40 [facility] Comment on above: National Cholesterol Education Program (NCEP) guidelines:<40 mg/dL: Low HDL-cholesterol (major risk factor for CHD)>= 60 mg/dL: High HDL-cholesterol (negative risk factor for CHD)HDL-cholesterol is affected by a number of factors, e.g. smoking, exercise, hormones, sex and age. Serum or plasma cholesterol measurement (mass/volume)Ordered By: Julisa Cheung on 02-22-2025 Cholesterol [Mass/Vol] 169 mg/dL <201 [facility] Comment on above: Cholesterol level, D esirable <200 mg/dLBorderline high cholesterol 200-239 mg/dLHigh cholesterol >=240 mg/dLRecommendations of the NCEP Adult Treatment Panel for the following risk-cutoff thresholds for the [place] population. Triglycerides measurementOrd ered By: Julisa Cheung on 02-22-2025 Triglyceride [Mass/Vol] 78 mg/dL <199 [facility] Comment on above: The drugs N-Acetylcy steine and Metamizole may falsely depress this assay. Normal range: <150 mg/dLBorderline High: 150-199 mg/dLHigh: 200-499 mg/dLVery High: >500 mg/dL CNPNon 02-04-2025 CNPN Telephone (AGGENS4) FRANCIA GAMA ([id number]) 1960 F Date Time Provider Department 02/04/25 MITRA SAAVEDRA AGGENS4 During your visit today, we recorded the following information about you: Claudia Muse 02/04/2025 8:35 AM Signed Lvm and sent MCM to reschedule 04/17 appt - Keri is out of office 04/16-04/26. Allergies As of Date: 02/04/2025 Noted Allergy Reaction KIWI 08/06/2019 10 - Anaphylaxis LATEX, NATURAL RUBBER 08/06/2019 4 - Hives TETRACYCLINE 04/29/2006 11 - Vomiting PAROXETINE 05/17/2017 16 - Unknown MORPHINE 11/15/2019 9 - Itching Date Reviewed: 12/06/2024 Reviewed by: Mitra Saavedra MD - Fully Assessed Reason for Visit: Appointment [186] Prescriptions as of 02/04/2025 - pantoprazole DR (PROTONIX) 40 mg tablet Take 1 tablet by mouth once daily. - pantoprazole DR (PROTONIX) 40 mg tablet Take 1 tablet by mouth two times a day. - DULoxetine (CYMBALTA) 30 mg capsule Take 1 capsule by mouth every afternoon. - sucralfate (CARAFATE) 1 gram tablet TAKE 1 TABLET BY MOUTH TWICE DAILY. FOLLOW SLURRY INSTRUCTIONS. - cyclobenzaprine (FLEXERIL) 10 mg tablet Take 1 tablet by mouth three times daily as needed for muscle spasm. - buPROPion XL (WELLBUTRIN XL) 300 mg 24 hr tablet Take 300 mg by mouth once daily. - Cholecalciferol, Vitamin D3, 50 mcg (2,000 unit) cap Take 1 capsule by mouth once daily. - fluticasone (FLONASE) 50 mcg/actuation nasal spray Use 2 (TWO) sprays IN EACH NOSTRIL DAILY DIRECTED - polyethylene glycol 3350 (MIRALAX, GLYCOLAX) 17 gram/dose powder Use as directed for Miralax / Gatorade Bowel Prep Kit - Gatorade Sports Drink Use as directed for Miralax / Gatorade Bowel Prep Kit - Bisacodyl (DULCOLAX) 5 mg tab Use as directed for Miralax / Gatorade Bowel Prep Kit - fexofenadine HCl (BETTY ORAL) Take by mouth once daily. - losartan-hydroCHLORO thiazide (HYZAAR) 100-25 mg per tablet Take 1 tablet by mouth once daily. - pregabalin (LYRICA) 150 mg capsule Take 1 capsule by mouth twice daily for 30 days. - amlodipine besylate (AMLODIPINE ORAL) Take 10 mg by mouth once daily. - METOPROLOL SR 100 MG 24 HR TAB Take 100 mg by mouth two times a day. - citalopram hydrobromide(CELEXA 40 MG TAB) Take one(1) tablet daily. Problem List As Of Date 02/04/2025 Noted Resolved Gastroesophageal reflux disease without esophag*04/29/2006 DIS OF GALLBLADDER NEC [K82.8] 07/25/2008 Class 1 obesity [E66.811] 07/04/2020 Essential hypertension, benign [I10] Dietary counseling and surveillance [Z71.3] 04/24/2021 Abnormal EKG [R94.31] 04/24/2021 Spondylolisthesis, lumbar region [M43.16] 05/07/2021 Body mass index 31.0-31.9, adult [Z68.31] 08/12/2021 Chronic bilateral low back pain [M54.50, G89.29]08/12/2021 Gastroesophageal reflux disease with esophagiti* Vitamin D deficiency [E55.9] 08/12/2021 Paraesophageal hernia [K44.9] 08/12/2021 Preop examination [Z01.818] 09/28/2024 AARON (obstructive sleep apnea) [G47.33] 09/28/2024 Marijuana user [F12.90] 09/28/2024 Former smoker [Z87.891] 09/28/2024 Obesity (BMI 30-39.9) [E66.9] 09/28/2024 Screening for colon cancer [Z12.11] 09/28/2024 Hypertension [I10] 09/28/2024 Encounter Status:Closed by CLAUDIA MUSE on 02/04/25 [facility] 02-01-2025 CNPN Telephone (AGGENS4) FRANCIA GAMA ([id number]) 1960 F Date Time Provider Department 02/01/25 MITRA SAAVEDRA AGGENS4 During your visit today, we recorded the following information about you: Claudia Muse 02/01/2025 8:35 AM Signed Lvm and sent [facility] to reschedule 04/17 appt - Keri is out of office 04/16-04/26. Allergies As of Date: 02/01/2025 Noted Allergy Reaction KIWI 08/06/2019 10 - Anaphylaxis LATEX, NATURAL RUBBER 08/06/2019 4 - Hives TETRACYCLINE 04/29/2006 11 - Vomiting PAROXETINE 05/17/2017 16 - Unknown MORPHINE 11/15/2019 9 - Itching Date Reviewed: 12/06/2024 Reviewed by: Mitra Saavedra MD - Fully Assessed Reason for Visit: Appointment [186] Prescriptions as of 02/01/2025 - pantoprazole DR (PROTONIX) 40 mg tablet Take 1 tablet by mouth once daily. - pantoprazole DR (PROTONIX) 40 mg tablet Take 1 tablet by mouth two times a day. - DULoxetine (CYMBALTA) 30 mg capsule Take 1 capsule by mouth every afternoon. - sucralfate (CARAFATE) 1 gram tablet TAKE 1 TABLET BY MOUTH TWICE DAILY. FOLLOW SLURRY INSTRUCTIONS. - cyclobenzaprine (FLEXERIL) 10 mg tablet Take 1 tablet by mouth three times daily as needed for muscle spasm. - buPROPion XL (WELLBUTRIN XL) 300 mg 24 hr tablet Take 300 mg by mouth once daily. - Cholecalciferol, Vitamin D3, 50 mcg (2,000 unit) cap Take 1 capsule by mouth once daily. - fluticasone (FLONASE) 50 mcg/actuation nasal spray Use 2 (TWO) sprays IN EACH NOSTRIL DAILY DIRECTED - polyethylene glycol 3350 (MIRALAX, GLYCOLAX) 17 gram/dose powder Use as directed for Miralax / Gatorade Bowel Prep Kit - Gatorade Sports Drink Use as directed for Miralax / Gatorade Bowel Prep Kit - Bisacodyl (DULCOLAX) 5 mg tab Use as directed for Miralax / Gatorade Bowel Prep Kit - fexofenadine HCl (BETTY ORAL) Take by mouth once daily. - losartan-hydroCHLORO thiazide (HYZAAR) 100-25 mg per tablet Take 1 tablet by mouth once daily. - pregabalin (LYRICA) 150 mg capsule Take 1 capsule by mouth twice daily for 30 days. - amlodipine besylate (AMLODIPINE ORAL) Take 10 mg by mouth once daily. - METOPROLOL SR 100 MG 24 HR TAB Take 100 mg by mouth two times a day. - citalopram hydrobromide(CELEXA 40 MG TAB) Take one(1) tablet daily. Problem List As Of Date 02/01/2025 Noted Resolved Gastroesophageal reflux disease without esophag*04/29/2006 DIS OF GALLBLADDER NEC [K82.8] 07/25/2008 Class 1 obesity [E66.811] 07/04/2020 Essential hypertension, benign [I10] Dietary counseling and surveillance [Z71.3] 04/24/2021 Abnormal EKG [R94.31] 04/24/2021 Spondylolisthesis, lumbar region [M43.16] 05/07/2021 Body mass index 31.0-31.9, adult [Z68.31] 08/12/2021 Chronic bilateral low back pain [M54.50, G89.29]08/12/2021 Gastroesophageal reflux disease with esophagiti* Vitamin D deficiency [E55.9] 08/12/2021 Paraesophageal hernia [K44.9] 08/12/2021 Preop examination [Z01.818] 09/28/2024 AARON (obstructive sleep apnea) [G47.33] 09/28/2024 Marijuana user [F12.90] 09/28/2024 Former smoker [Z87.891] 09/28/2024 Obesity (BMI 30-39.9) [E66.9] 09/28/2024 Screening for colon cancer [Z12.11] 09/28/2024 Hypertension [I10] 09/28/2024 Encounter Status:Closed by CLAUDIA MUSE on 02/01/25 Normal [facility] Emergency Department Summary on 12-25-2024 Emergency Department Summary [facility] Medical Records Department [address] [place] [address] Emergency Department Summary 12/25/24 MR#: [id number] Acct: [id number] Name: FRANCIA GAMA Rep #: [id number] : 1960 64 From: Uche Kuhn MD PCP: Dr. Julisa Cheung MD Status:REG ER Location: ED HPI History of Present Illness Chief Complaint: Rash Informant: patient Onset/Context/Timing Onset: Today Context: Gradual Onset Timing: Continuous Current Severity: Mild Maximum Severity: Mild Narrative Narrative: 64-year-old female history of hypertension. States that she cleaned the bathtub with cleaning products. Then she soaked in the tub and Epsom salts. Developed a rash on her lower extremities that started on in the last 24 hours. Says it only itches a little bit. It is really not painful. She denies any fever or chills. Never had this before. She is concerned it may be secondary to the chemicals. She denies any illness. She denies shortness of breath or chest pain. She denies fever. Prior similar symptoms: No Recent Illness/Hospitalizat ion: No PFSH PFS Medical History Acute frontal sinusitis, unspecified Severe headache Fatigue Hypertension Home Medications ???Medication ???Instructions ???Recorded ???Last Taken ???Type amlodipine 10 mg tablet 10 mg PO DAILY 06/16/20 Unknown Hi story bupropion HCl 300 mg 24 hr tablet, 300 mg PO DAILY 06/16/20 Unknown History extended release omeprazole 20 mg capsule,delayed 20 mg PO DAILY 07/24/21 Unknown Hi story release amoxicillin 875 mg-potassium 1 tab PO Q12H #14 tabs 04/27/24 Un known Rx clavulanate 125 mg tablet cholecalciferol (vitamin D3) 50 50 mcg PO QDAY 04/27/24 Unknown Hi story mcg (2,000 unit) capsule duloxetine 30 mg capsule,delayed 30 mg PO QDAY 04/27/24 Unknown His tory release fluticasone propionate 50 2 spray intranasal QDAY 04/27/24 U nknown History mcg/actuation nasal spray,suspension losartan 100 1 tab PO QDAY 04/27/24 Unknown His tory mg-hydrochlorothiazi de 12.5 mg tablet meloxicam 15 mg tablet 15 mg PO QDAY 04/27/24 Unknown His tory sucralfate 100 mg/mL oral 10 ml PO BID #300 mL 05/22/24 Unkn own Rx suspension (Carafate) Allergy/AdvReac Type Severity Reaction Status Date / Time latex Allergy Mild Rash Verified 12/25/24 11:44 morphine Allergy Itching Verified 12/25/24 11:44 paroxetine (From Paxil) Allergy Unknown Verified 12/25/24 11:44 Tetracyclines Allergy Unknown Verified 12/25/24 11:44 Family History Other Diabetes Hypertension Surgical History H/O wrist surgery History of back surgery H/O section History of repair of hiatal hernia Hx of tonsillectomy Hx of cholecystectomy History of hysterectomy Social History Smoking Status: Never smoker alcohol intake: never ROS ROS ED ROS Narrative Rash bilateral lower extremities. Constitutional Constitutional ED: Denies chills or fever(s) Eyes Eyes: Denies blurry vision ENT ENT ED: Denies ear pain Cardiovascular Cardiovascular: Denies chest pain Respiratory/Chest Respiratory/Chest: Denies cough or dyspnea Gastrointestinal Gastrointestinal: Denies abdominal pain, diarrhea or vomiting Genitourinary Genitourinary ED: Denies dysuria or hematuria Musculoskeletal Musculoskeletal: Denies arthralgias or back pain Integumentary Reports rash; Denies abscess or Abrasions Neurologic Neurologic: Denies headache(s) Psychiatric Psychiatric: Denies anxiety Endocrine Endocrinology: Denies cold intolerance Hematologic/Lymphati c Hematologic/Lymphati c: Reports none Allergic/Immunologic Allergic/Immunologic ED: Denies mouth swelling, tongue swelling or urticaria EXAM Physical Exam Narrative Exam Narrative: Well-appearing 64-year-old female. Vital signs stable and her blood pressure elevated 198/118. She history of hypertension. Pulse ox 100% on room air no signs hypoxia. No distress. H EENT exam unremarkable. Moist mucous membranes. Pupils round reactive light. Neck nontender no JVD. Lungs clear to auscultation bilaterally. Heart regular rate and rhythm rate about 90 no murmur. Chest wall ribs nontender. Abdomen soft nontender, nondistended normal bowel sounds without peritoneal signs. Moving all 4 extremities. Neurovascularly intact. 5 out of 5 seismograph shooter strength. Dorsi plantarflexion intact. No edema. No cords. Nontender. She has a rash on both lower extremities lower shins red. Does not sterling. Petechiae appropriate. There is no vesicles. No pustules. Calves are nontender. No cords. It is worse on the right lower extremity than the (more content not included)... Normal [facility] CNCOon 12-06-2024 CNCO Letter Text Normal [facility] CNOVon 12-06-2024 CNOV Office Visit (AGGENS4) FRANCIA GAMA ([id number]) 1960 F Date Time Provider Department 12/06/24 8:00 AM MITRA SAAVEDRA AGGENS4 During your visit today, we recorded the following information about you: Pulse Blood pressure Weight Height 79/minute 177/80 82.8 kg 1.651 m Mitra Saavedra MD 12/06/2024 8:35 AM Signed SURGICAL SERVICES HISTORY AND PHYSICAL EXAMINATION SERVICE DATE: 12/06/2024 SERVICE TIME: 8:11 AM PRIMARY CARE PHYSICIAN: Julisa Cheung MD SUBJECTIVE CHIEF COMPLAINT: hernia HISTORY OF PRESENT ILLNESS: Ms. Gama is a 64 year old female with a PMH of HTN (amlodipine, losartan), anxiety, depression (Wellbutrin), HLD, obesity (35.19--BMI 31.52--> 30.39), chronic lower back pain/spinal stenosis, GERD (Protonix), LE DVT (x1 in 06/26 after a fall; on Eliquis 3 months) who presents for follow up after recent testing. Today she reports that she is overall doing well but continues with frequent severe heartburn symptoms and has overall poor appetite. Workup: - EGD (10/12/24): HG 4 GEJ consistent with recurrent hernia; loose wrap - Pathology: Predominantly antral-type gastric mucosa with minimal chronic gastritis and features of reactive gastropathy. - Morphologic features of Helicobacter pylori infection are not identified - UGI (08/30/24): Postoperative changes of Rosenda fundoplication. Recurrent moderate-sized hiatal hernia. Positive for gastroesophageal reflux. - Manometry (10/12/24): GEJOO - UGI (01/30/21): moderate-sized hiatal hernia. - GES (29595): WNL - EGD: reflux esophagitis, duodenitis, disrupted fundoplication with recurrent hiatal hernia - Pathology: Benign gastric mucosa with features of very mild reactive gastropathy. Duodenum, biopsy - No pathologic abnormalities. Esophagus, biopsy - Benign squamous mucosa showing no pathologic abnormalities. Per my last clinic note in 07/2024: she reports that two months ago she was evaluated at [facility] due to abdominal pain. She underwent CT scan which demonstrated inflammation and a larger hernia. I, unfortunately, do not have access to these images. She states that her symptoms are more severe not than they were 3 years ago. She experiences constant substernal burning and nausea, intermittent bleaching, and regurgitation and emesis after eating and this occurs several times per month. She has rare dysphagia. She remains on Carafate and Prilosec 40 mg BID. Despite taking these medications she continues to have symptoms. I last saw her in clinic on 04/29/2021. Per my last clinic note: She endorses symptoms of dysphagia, heartburn, and chest pain which began 1 year ago and has progressively worsened with intake of solids - she also endorses regurgitation, belching, and substernal burning. She reportsthings getting stuck in my throat and it is difficult to swallow. Symptoms of heartburn began approximately 8 months ago at which time she began taking Prilosec daily. She endorses a 6 month history of abdominal pain/epigastric burning. She endorses intermittent nausea with oral intake (of note UGI from 10/2015 after Rosenda demonstrated a large amount of food in the stomach). QOL score today is 40. She endorses lack of appetite. She underwent laparoscopic hiatal hernia repair (large type 3) with Rosenda fundoplication on 08/27/15 due to chronic anemia and Jean's ulcers thought to be due to her large hiatal hernia. She has had good results with no symptoms of anemia, heartburn or regurgitation since that time - until about 8-12 months ago. She lost 40 pounds surrounding the time of hernia repair, but has regained that weight and remains stable around 190-203 pounds. Social Hx: former smoker who quit in 2011 with no relapses; she drinks 6 beers per week; she uses recreational marijuana (one bowel per day); she denies use of other drugs. She works at [employer]. She lives with her daughter Maria L (works at [employer]) PSHx: lumbar laminectomy (L4/5), lap CCx, paraesophageal hernia repair (2014 w/ Dr. Skaggs), ANNA, left wrist fusion, ectopic PAST MEDICAL HISTORY: PAST MEDICAL HISTORY Diagnosis Date Acute deep vein thrombosis (DVT) of popliteal vein of left lower extremity (HCC) 06/2020 Eliquis x 3 months off now. After a fall Depression Dysphagia Essential hypertension, benign Generalized anxiety disorder GERD (gastroesophageal reflux disease) Hiatal hernia surgically corrected 2014; recurrent 10/12/24 AARON (obstructive sleep apnea) mild -no CPAP Spondylolisthesis of lumbar region PAST SURGICAL HISTORY: PAST SURGICAL HISTORY Procedure Laterality Date CAPSULE ENDOSCOPY SMALL BOWEL WITH EGD (HL,MM) 06/01/2015 COLONOSCOPY W/BIOPSY SINGLE/MULTIPLE 05/25/2015 EGD WITH BIOPSY(S) 05/27/2015 hiatal hernia; Dr. Killian EGD WITH BIOPSY(S) 04/10/2021 Dr. Capps (more content not included)... Normal [facility] ANES POSTPROC EVALon 024 ANES POSTPROC EVAL HNO ID: [id number] Author: CAITLIN ANGELES MD Service: Anesthesiology Author Type: Anesthesiologist Type: Anesthesia Postprocedure Evaluation Filed: 10/12/2024 12:35 Note Text: POST ANESTHESIA EVALUATION NOTE : 1960 Procedure Summary Date: 10/12/24 Room / Location: [facility] Anesthesia Start: 829 Anesthesia Stop: 847 Procedure: EGD DIAGNOSTIC Diagnosis: Gastroesophageal reflux disease, unspecified whether esophagitis present (Heartburn) Scheduled Providers: Mitra Saavedra MD Responsible Provider: Caitlin Angeles MD Anesthesia Type: MAC ASA Status: 3 Anesthesia Type: MAC Last Vitals Vitals Value Taken Time BP 146/87 10/12/24 0905 Temp 36.2 ?C (97.1 ?F) 10/12/24 0848 Pulse 70 10/12/24 0905 Resp 16 10/12/24 0905 SpO2 95 % 10/12/24 0905 Post Anesthesia Patient Status Patient Evaluation: PACU. PACU/ICU Patient Condition: stable. Neurological Status: aware and responsive. Pulmonary Status: breathing comfortably on supplemental oxygen Airway Control: returned to baseline unsupported. Cardiovascular Status: stable. Pain Management: clinically adequate Postoperative Hydration: acceptable. Intraoperative Events: no significant anesthesia events Post Operative Nausea/Vomiting Status: no significant post operative nausea or vomiting Recommendation: continue current plan of care. Anesthesia Observations No Documentation SIGNATURE: Caitlin Angeles MD PATIENT NAME: Francia Gama DATE: October 12, 2024 TIME: 12:35 PM CSN: [id number] Normal [facility] ANES PRE-OPon 10-12-2024 ANES PRE-OP HNO ID: [id number] Author: CAITLIN ANGELES MD Service: Anesthesiology Author Type: Anesthesiologist Type: Anesthesia Preprocedure Evaluation Filed: 10/12/2024 08:29 Note Text: ANESTHESIOLOGY DAY OF SURGERY NOTE Colonoscopy HTN - amlodipine, losartan-HCTZ, metop Psych - wellbutrin, duloxetine HLD GERD - PPI DVT - completed elequis Echo 2020 EF = 63% RVSP = 44 Mac 3, grade 1 : 1960 Procedure Information Date/Time: 10/12/24 0900 Scheduled providers: Mitra Saavedra MD Procedure: EGD DIAGNOSTIC Location: [facility] Estimated body mass index is 29.95 kg/m? as calculated from the following: Height as of this encounter: 165.1 cm (5' 5). Weight as of this encounter: 81.6 kg (180 lb). Most recent hematocrit and potassium results: Hematocrit 44.8 04/07/2021 Potassium 3.2 05/09/2021 Relevant Problems ANESTHESIA (+) AARON (obstructive sleep apnea) CARDIO (+) Essential hypertension, benign (+) Hypertension GI (+) Gastroesophageal reflux disease with esophagitis without hemorrhage (+) Gastroesophageal reflux disease without esophagitis (+) Paraesophageal hernia PULMONARY (+) AARON (obstructive sleep apnea) I - PHYSICAL EVALUATION AIRWAY Patient intubated: No. Tracheostomy tube not present Mallampati: II. TM distance: >3 FB. Neck ROM: full ROM without neurological symptoms. Mouth opening: adequate. Short neck: no. Thick neck: no DENTAL Dental findings: poor dentition. II - ANESTHESIA PLAN ASA Score: 3 Anesthetic Plan: MAC NPO Status: adequate Beta Sarah Monitoring Plan Monitoring plan: standard ASA. Post Procedure Analgesic Plan Postoperative analgesic plan: multimodal analgesia. Informed Consent Anesthetic risks, benefits, alternatives, personnel and consent discussed: yes. Patient / Responsible Libertarian agrees to proceed: yes Patient / Surrogate agrees to blood products: blood products not planned Potential Anesthesia issues that may suggest increased risk of complications or contraindication to planned procedure: none. Vitals Value Taken Time BP 161/94 10/12/24 0737 Pulse 67 10/12/24726 Resp 13 10/12/24726 Temp 35.9 ?C (96.6 ?F) 10/12/24726 SpO2 97 % 10/12/24726 No current facility-administere d medications on file as of 10/12/2024. Outpatient Medications as of 10/12/2024 Medication Sig DULoxetine (CYMBALTA) 30 mg capsule Take 1 capsule by mouth every afternoon. buPROPion XL (WELLBUTRIN XL) 300 mg 24 hr tablet Take 300 mg by mouth once daily. Cholecalciferol, Vitamin D3, 50 mcg (2,000 unit) cap Take 1 capsule by mouth once daily. fexofenadine HCl (BETTY ORAL) Take by mouth once daily. losartan-hydroCHLORO thiazide (HYZAAR) 100-25 mg per tablet Take 1 tablet by mouth once daily. amlodipine besylate (AMLODIPINE ORAL) Take 10 mg by mouth once daily. citalopram hydrobromide(CELEXA 40 MG TAB) Take one(1) tablet daily. sucralfate (CARAFATE) 1 gram tablet TAKE 1 TABLET BY MOUTH TWICE DAILY. FOLLOW SLURRY INSTRUCTIONS. pantoprazole DR (PROTONIX) 40 mg tablet Take 1 tablet by mouth two times a day. cyclobenzaprine (FLEXERIL) 10 mg tablet Take 1 tablet by mouth three times daily as needed for muscle spasm. fluticasone (FLONASE) 50 mcg/actuation nasal spray Use 2 (TWO) sprays IN EACH NOSTRIL DAILY DIRECTED polyethylene glycol 3350 (MIRALAX, GLYCOLAX) 17 gram/dose powder Use as directed for Miralax / Gatorade Bowel Prep Kit (Patient not taking: Reported on 09/30/2021 ) Gatorade Sports Drink Use as directed for Miralax / Gatorade Bowel Prep Kit Bisacodyl (DULCOLAX) 5 mg tab Use as directed for Miralax / Gatorade Bowel Prep Kit (Patient not taking: Reported on 09/30/2021 ) pregabalin (LYRICA) 150 mg capsule Take 1 capsule by mouth twice daily for 30 days. (Patient not taking: Reported on 04/02/2022) METOPROLOL SR 100 MG 24 HR TAB Take 100 mg by mouth twice daily. (Patient not taking: Reported on 04/02/2022 ) I have interviewed and examined the patient. I have reviewed the medical record and/or the pre-anesthesia evaluation, pertinent labs, and test results. This contains updated information obtained within 48 hours of Surgery/Procedure. SIGNATURE: Caitlin Angeles MD PATIENT NAME: Francia Gama DATE: October 12, 2024 TIME: 8:29 AM CSN: [id number] Normal [facility] EGD Study observation Oseas magana 10-12-2024 [facility] Gastrointestinal Endoscopy Patient Name: Francia Gama Procedure Date: 10/12/2024 8:28 AM Date of : 1960 Admit Type: Outpatient Room: [place] [address] Gender: Female Note Status: Finalized Attending MD: Mitra Saavedra MD, [id number] Procedure: Upper GI endoscopy Indications: Heartburn, Follow-up of gastro-esophageal reflux disease Providers: Mitra Saavedra MD Patient Profile: Refer to note in patient chart for documentation of history and physical. Patient has symptoms of chronic heartburn and chronic regurgitation. Body Mass Index: 30. Is status post within the past several years. Previously obtained CT showed a herniation in the stomach. Referring Physician: Mitra Saavedra MD (Referring MD) Medicines: Monitored Anesthesia Care Complications: No immediate complications. Procedure: Pre-Anesthesia Assessment: - Prior to the procedure, a History and Physical was performed, and patient medications and allergies were reviewed. The patient's tolerance of previous anesthesia was also reviewed. The risks and benefits of the procedure and the sedation options and risks were discussed with the patient. All questions were answered, and informed consent was obtained. Prior Anticoagulants: The patient has taken no anticoagulant or antiplatelet agents. ASA Grade Assessment: III - A patient with severe systemic disease. After reviewing the risks and benefits, the patient was deemed in satisfactory condition to undergo the procedure. After obtaining informed consent, the endoscope was passed under direct vision. Throughout the procedure, the patient's blood pressure, pulse, and oxygen saturations were monitored continuously. The Endoscope was introduced through the mouth, and advanced to the third part of duodenum. I was present and participated during the entire procedure, including non-benton portions, and during the administration and monitoring of Moderate Sedation. The upper GI endoscopy was accomplished without difficulty. The patient tolerated the procedure well. Moderate Sedation: Exam was performed under monitored anesthesia care (MAC) Findings: The gastroesophageal flap valve was visualized endoscopically and classified as Hill Grade IV (no fold, wide open lumen, hiatal hernia present). Estimated blood loss: none. Evidence of a Rosenda fundoplication was found in the gastric fundus. The wrap appeared loose. This was traversed. Biopsies were taken with a cold forceps for Helicobacter pylori testing. The duodenal bulb, first portion of the duodenum, second portion of the duodenum and third portion of the duodenum were normal. Estimated Blood Loss: Estimated blood loss: none. Impression: - Gastroesophageal flap valve classified as Hill Grade IV (no fold, wide open lumen, hiatal hernia present). - A RECURRENT paraesophageal hernia containing the Rosenda fundoplication was found. The wrap appears loose. Biopsied the gastric antrum for H.pylori. - Normal duodenal bulb, first portion of the duodenum, second portion of the duodenum and third portion of the duodenum. Recommendation: - Await pathology results. - Discharge patient to home (ambulatory). - Resume previous diet. - Continue present medications. - Return to my office as previously scheduled. - The patient is not currently taking anticoagulant or antiplatelet agents. Procedure Code(s): --- Professional --- 31897, Esophagogastroduoden oscopy, flexible, transoral; with biopsy, single or multiple --- [place] (more content not included)... [facility] Radiology Study observation (narrative) Jose Manuel [facility] NURSING PROGon 10-12-2024 NURSING PROG HNO ID: [id number] Author: ALEXA CASE, RN Service: Nursing Author Type: Registered Nurse Type: Nursing Progress Note Filed: 10/12/2024 08:26 Note Text: The patient was brought into the procedure and a time out was performed. Patient denies taking any muscle relaxers or blood thinners. Patient denies any surgery or injuries to the nose. After confirmation of potential allergies a topical analgesic was used to numb Left Nares followed by the trans-nasal insertion of a High Resolution Manometry Catheter. Position was verified. A 30 second baseline pressure was obtained to identify the UES and the LES followed by a series of 10 wet swallows using 5 ml of room temperature Normal Saline to assess esophageal motility. At the conclusion of the procedure the catheter was removed with no heme noted. Patient tolerated the procedure well and was informed of possible congestion and minimal nose bleeding following procedure. Normal [facility] SURGICAL PATHOLOGYon 024 CASE REPORT Normal [facility] Comment on above: Order Comment: Speci men Type: TISSUE SPECIMENOrdering Facility: [facility] Address: [address] [place] [address] Result Comment: Surg ical Pathology Report Case: [id number] Authorizing Provider: Mitra Saavedra MD Collected: 10/12/2024 08:43 AM Ordering Location: [facility] Received: 10/12/2024 01:14 PM Pathologist: Eliezer Reynoso MD Specimen: Stomach, Antrum, Biopsy Performed By: #### S ####[facility] LABORATORYCLIA [id number] [address] FINAL DIAGNOSIS Normal [facility] Comment on above: Order Comment: Speci men Type: TISSUE SPECIMENOrdering Facility: [facility] Address: [address] [place] [address] Result Comment: [place] tomach, antrum, biopsy: - Predominantly antral-type gastric mucosa with minimal chronic gastritis and features of reactive gastropathy. - Morphologic features of Helicobacter pylori infection are not identified. Performed By: #### S ####[facility]ORATORYCLIA [id number] [address] FINAL PERFORMING LAB Normal [facility] Comment on above: Order Comment: Speci men Type: TISSUE SPECIMENOrdering Facility: [facility] Address: [address] [place] [address] Result Comment: Diag nostic interpretation performed at [facility], [address] [place] [address] CLIA# [id number] Ostomy Nurse: Barney Riley M.D. Performed By: #### S ####[facility] LABORATORYCLIA [id number] [address] GROSS DESCRIPTION Normal [facility] Comment on above: Order Comment: Speci men Type: TISSUE SPECIMENOrdering Facility: [facility] Address: [address] [place] [address] Result Comment: [place], Antrum, Biopsy Received in formalin labeled stomach antrum biopsy are multiple pieces of adair, soft tissue aggregating to 1.7 x 0.3 x 0.2 cm. Totally submitted in one cassette. Gross examination performed at [facility], [address] [place] [address] RSA October 12, 2024 3:32 PM Performed By: #### S ####[facility] LABORATORYCLIA [id number] [place] [address] [facility] Upper GI endoscopyon 024 Upper GI endoscopy [facility] Gastrointestinal Endoscopy Patient Name: Francia Gama Procedure Date: 10/12/2024 8:28 AM Date of : 1960 Admit Type: Outpatient Room: [place] [address] Gender: Female Note Status: Finalized Attending MD: Mitra Saavedra MD, [id number] Procedure: Upper GI endoscopy Indications: Heartburn, Follow-up of gastro-esophageal reflux disease Providers: Mitra Saavedra MD Patient Profile: Refer to note in patient chart for documentation of history and physical. Patient has symptoms of chronic heartburn and chronic regurgitation. Body Mass Index: 30. Is status post within the past several years. Previously obtained CT showed a herniation in the stomach. Referring Physician: Mitra Saavedra MD (Referring MD) Medicines: Monitored Anesthesia Care Complications: No immediate complications. Procedure: Pre-Anesthesia Assessment: - Prior to the procedure, a History and Physical was performed, and patient medications and allergies were reviewed. The patient's tolerance of previous anesthesia was also reviewed. The risks and benefits of the procedure and the sedation options and risks were discussed with the patient. All questions were answered, and informed consent was obtained. Prior Anticoagulants: The patient has taken no anticoagulant or antiplatelet agents. ASA Grade Assessment: III - A patient with severe systemic disease. After reviewing the risks and benefits, the patient was deemed in satisfactory condition to undergo the procedure. After obtaining informed consent, the endoscope was passed under direct vision. Throughout the procedure, the patient's blood pressure, pulse, and oxygen saturations were monitored continuously. The Endoscope was introduced through the mouth, and advanced to the third part of duodenum. I was present and participated during the entire procedure, including non-benton portions, and during the administration and monitoring of Moderate Sedation. The upper GI endoscopy was accomplished without difficulty. The patient tolerated the procedure well. Moderate Sedation: Exam was performed under monitored anesthesia care (MAC) Findings: The gastroesophageal flap valve was visualized endoscopically and classified as Hill Grade IV (no fold, wide open lumen, hiatal hernia present). Estimated blood loss: none. Evidence of a Rosenda fundoplication was found in the gastric fundus. The wrap appeared loose. This was traversed. Biopsies were taken with a cold forceps for Helicobacter pylori testing. The duodenal bulb, first portion of the duodenum, second portion of the duodenum and third portion of the duodenum were normal. Estimated Blood Loss: Estimated blood loss: none. Impression: - Gastroesophageal flap valve classified as Hill Grade IV (no fold, wide open lumen, hiatal hernia present). - A RECURRENT paraesophageal hernia containing the Rosenda fundoplication was found. The wrap appears loose. Biopsied the gastric antrum for H.pylori. - Normal duodenal bulb, first portion of the duodenum, second portion of the duodenum and third portion of the duodenum. Recommendation: - Await pathology results. - Discharge patient to home (ambulatory). - Resume previous diet. - Continue present medications. - Return to my office as previously scheduled. - The patient is not currently taking anticoagulant or antiplatelet agents. Procedure Code(s): --- Professional --- 79187, Esophagogastroduoden oscopy, flexible, transoral; with biopsy, single or multiple --- Technical --- 70728, Esophagogastroduoden oscopy, flexible, transoral; with biopsy, single or multiple Diagnosis Code(s): --- Professional --- K44.9, Diaphragmatic hernia without obstruction or gangrene Z98.890, Other specified postprocedural states R12, Heartburn K21.9, Gastro-esophageal reflux disease without esophagitis --- Technical --- K44.9, Diaphragmatic hernia without obstruction or gangrene Z98.890, Other specified postprocedural states R12, Heartburn K21.9, Gastro-esophageal reflux disease without esophagitis CPT copyright 202 [employer]. All rights reserved. The codes documented in this report are preliminary and upon yard pilot review may be revised to meet current compliance requirements. Attending Participation: I personally performed the entire procedure. Scope In: 8:39:31 AM Scope Out: 8:44:40 AM MD Mitra Dwyer MD 10/12/2024 8:54:13 AM This report has been signed electronically by Mitra Saavedra MD Number of Addenda: 0 Note Initiated On: 10/12/2024 8:28 AM Normal [facility] ANES POSTPROC EVALon 024 ANES POSTPROC EVAL HNO ID: [id number] Author: CAITLIN ANGELES MD Service: Anesthesiology Author Type: Anesthesiologist Type: Anesthesia Postprocedure Evaluation Filed: 09/28/2024 11:52 Note Text: POST ANESTHESIA EVALUATION NOTE : 1960 Procedure Summary Date: 09/28/24 Room / Location: [facility] Anesthesia Start: 904 Anesthesia Stop: 948 Procedure: COLONOSCOPY SCREENING Diagnosis: Screening for colon cancer Scheduled Providers: Steven Peoples MD Responsible Provider: Caitlin Angeles MD Anesthesia Type: MAC ASA Status: 3 Anesthesia Type: MAC Last Vitals Vitals Value Taken Time BP 122/89 09/28/24 1005 Temp 36.3 ?C (97.3 ?F) 09/28/24 0949 Pulse 76 09/28/24 1005 Resp 19 09/28/24 1005 SpO2 97 % 09/28/24 1005 Post Anesthesia Patient Status Patient Evaluation: PACU. PACU/ICU Patient Condition: stable. Neurological Status: aware and responsive. Pulmonary Status: breathing comfortably on supplemental oxygen Airway Control: returned to baseline unsupported. Cardiovascular Status: stable. Pain Management: clinically adequate Postoperative Hydration: acceptable. Intraoperative Events: no significant anesthesia events Post Operative Nausea/Vomiting Status: no significant post operative nausea or vomiting Recommendation: continue current plan of care. Anesthesia Observations No Documentation SIGNATURE: Caitlin Angeles MD PATIENT NAME: Francia Gama DATE: September 28, 2024 TIME: 11:52 AM CSN: [id number] [facility] ANES PRE-OPon 09-28-2024 ANES PRE-OP HNO ID: [id number] Author: CAITLIN ANGELES MD Service: Anesthesiology Author Type: Anesthesiologist Type: Anesthesia Preprocedure Evaluation Filed: 09/28/2024 08:53 Note Text: ANESTHESIOLOGY DAY OF SURGERY NOTE Colonoscopy HTN - amlodipine, losartan-HCTZ, metop Psych - wellbutrin, duloxetine HLD GERD - PPI DVT - completed elequis Echo 2020 EF = 63% RVSP = 44 Mac 3, grade 1 : 1960 Procedure Information Date/Time: 09/28/24 0900 Scheduled providers: Steven Peoples MD Procedure: COLONOSCOPY SCREENING Location: [facility] Estimated body mass index is 31.52 kg/m? as calculated from the following: Height as of 08/02/24: 165.1 cm (5' 5). Weight as of 08/02/24: 85.9 kg (189 lb 6.4 oz). Most recent hematocrit and potassium results: Hematocrit 44.8 04/07/2021 Potassium 3.2 05/09/2021 Relevant Problems CARDIO (+) Essential hypertension, benign GI (+) Gastroesophageal reflux disease with esophagitis without hemorrhage (+) Gastroesophageal reflux disease without esophagitis (+) Paraesophageal hernia I - PHYSICAL EVALUATION AIRWAY Patient intubated: No. Tracheostomy tube not present Mallampati: II. TM distance: >3 FB. Neck ROM: full ROM without neurological symptoms. Mouth opening: adequate. Short neck: no. Thick neck: no DENTAL Dental findings: broken tooth. II - ANESTHESIA PLAN ASA Score: 3 Anesthetic Plan: MAC NPO Status: adequate Beta Sarah Monitoring Plan Monitoring plan: standard ASA. Post Procedure Analgesic Plan Postoperative analgesic plan: multimodal analgesia. Informed Consent Anesthetic risks, benefits, alternatives, personnel and consent discussed: yes. Patient / Responsible Libertarian agrees to proceed: yes Patient / Surrogate agrees to blood products: blood products not planned Potential Anesthesia issues that may suggest increased risk of complications or contraindication to planned procedure: none. No vitals data found for the desired time range. Outpatient Medications as of 09/28/2024 Medication Sig - DULoxetine (CYMBALTA) 30 mg capsule Take 1 capsule by mouth every afternoon. - sucralfate (CARAFATE) 1 gram tablet TAKE 1 TABLET BY MOUTH TWICE DAILY. FOLLOW SLURRY INSTRUCTIONS. - pantoprazole DR (PROTONIX) 40 mg tablet Take 1 tablet by mouth two times a day. - cyclobenzaprine (FLEXERIL) 10 mg tablet Take 1 tablet by mouth three times daily as needed for muscle spasm. (Patient not taking: Reported on 08/02/2024) - buPROPion XL (WELLBUTRIN XL) 300 mg 24 hr tablet Take 300 mg by mouth once daily. - Cholecalciferol, Vitamin D3, 50 mcg (2,000 unit) cap Take 1 capsule by mouth once daily. - fluticasone (FLONASE) 50 mcg/actuation nasal spray Use 2 (TWO) sprays IN EACH NOSTRIL DAILY DIRECTED - polyethylene glycol 3350 (MIRALAX, GLYCOLAX) 17 gram/dose powder Use as directed for Miralax / Gatorade Bowel Prep Kit (Patient not taking: Reported on 09/30/2021 ) - Gatorade Sports Drink Use as directed for Miralax / Gatorade Bowel Prep Kit - Bisacodyl (DULCOLAX) 5 mg tab Use as directed for Miralax / Gatorade Bowel Prep Kit (Patient not taking: Reported on 09/30/2021 ) - fexofenadine HCl (BETTY ORAL) Take by mouth once daily. - losartan-hydroCHLORO thiazide (HYZAAR) 100-25 mg per tablet Take 1 tablet by mouth once daily. - pregabalin (LYRICA) 150 mg capsule Take 1 capsule by mouth twice daily for 30 days. (Patient not taking: Reported on 04/02/2022) - amlodipine besylate (AMLODIPINE ORAL) Take 10 mg by mouth once daily. - METOPROLOL SR 100 MG 24 HR TAB Take 100 mg by mouth twice daily. (Patient not taking: Reported on 04/02/2022 ) - citalopram hydrobromide(CELEXA 40 MG TAB) Take one(1) tablet daily. No current facility-administere d medications on file as of 09/28/2024. I have interviewed and examined the patient. I have reviewed the medical record and/or the pre-anesthesia evaluation, pertinent labs, and test results. This contains updated information obtained within 48 hours of Surgery/Procedure. SIGNATURE: Caitlin Angeles MD PATIENT NAME: Francia Gama DATE: September 28, 2024 TIME: 8:08 AM CSN: [id number] [facility] BRIEF OP NOTon 09-28-2024 BRIEF OP NOT HNO ID: [id number] Author: Steven PEOPLES MD Service: General Surgery Author Type: Physician Type: Brief Op Note Filed: 09/28/2024 09:48 Note Text: BRIEF OPERATIVE / PROCEDURE NOTE LOG ID: [id number] SURGERY/PROCEDURE DATE: 09/28/2024 INCISION/PROCEDURE START TIME: 9:11 AM INCISION CLOSE/PROCEDURE END TIME: 9:42 AM SURGEON(S)/PROCEDURA LIST(S) AND ZINC MINER(S): Steven Peoples MD - Proceduralist No Additional Staff SURGERY/PROCEDURE(S) : colonoscopy ANESTHESIA: Monitored Anesthesia Care FINDINGS: good prep Normal digital exam Scope to cecum and terminal ileum- Mild diverticulosis Very sharply angulated sigmoid Submucosal lipoma near hepatic flexure ESTIMATED BLOOD LOSS: 0 ml SPECIMENS: None COMPLICATIONS: None CLOSURE TECHNIQUE: PRE-OP/PRE-PROCEDURE DIAGNOSIS: colon cancer screening POST-OP/POST-PROCEDU RE DIAGNOSIS: Submucosal lipoma Diverticulosis Otherwise normal exam Patient was accompanied to the next level of care by a licensed practitioner from the surgical team pending completion of this brief op note (or operative note) SIGNATURE: Steven Peoples MD PATIENT NAME: Francia Gama DATE: September 28, 2024 TIME: 9:46 AM Normal [facility] Colonoscopyon 09-28-2024 Colonoscopy [facility] Gastrointestinal Endoscopy Patient Name: Francia Gama Procedure Date: 09/28/2024 8:59 AM Date of : 1960 Admit Type: Outpatient Room: [place] [address] Gender: Female Note Status: Server Manager Override Attending MD: Steven Peoples MD, [id number] Procedure: Colonoscopy Indications: Abdominal pain in the left lower quadrant Providers: Steven Peoples MD Patient Profile: This is a 64 year old female. Refer to note in patient chart for documentation of history and physical. Last Colonoscopy: 2014. Patient has symptoms of chronic left lower quadrant abdominal pain and constipation. Referring Physician: Steven Peoples MD (Referring MD) Medicines: Monitored Anesthesia Care Complications: No immediate complications. Procedure: Pre-Anesthesia Assessment: - Prior to the procedure, a History and Physical was performed, and patient medications and allergies were reviewed. The patient's tolerance of previous anesthesia was also reviewed. The risks and benefits of the procedure and the sedation options and risks were discussed with the patient. All questions were answered, and informed consent was obtained. Prior Anticoagulants: The patient has taken no anticoagulant or antiplatelet agents. ASA Grade Assessment: II - A patient with mild systemic disease. After reviewing the risks and benefits, the patient was deemed in satisfactory condition to undergo the procedure. After I obtained informed consent, the scope was passed under direct vision. Throughout the procedure, the patient's blood pressure, pulse, and oxygen saturations were monitored continuously. The Colonoscope was introduced through the anus and advanced to the terminal ileum, with identification of the appendiceal orifice and IC valve. I was present and participated during the entire procedure, including non-benton portions, and during the administration and monitoring of Moderate Sedation. The colonoscopy was performed without difficulty. The colonoscopy was technically difficult and complex due to significant looping and a tortuous colon. This was primarily in the sigmoid area. Successful completion of the procedure was aided by changing the patient to a supine position, using manual pressure and straightening and shortening the scope to obtain bowel loop reduction. The patient tolerated the procedure well. The quality of the bowel preparation was good. The terminal ileum, ileocecal valve, appendiceal orifice, and rectum were photographed. Scope Withdrawal Time: 0 hours 9 minutes 10 seconds Moderate Sedation: Exam was performed under monitored anesthesia care (MAC) Exam was performed under monitored anesthesia care (MAC) Findings: Multiple small-mouthed diverticula were found in the sigmoid colon. submucosal lipoma seen near hepatic flexure- soft texture- normal overlying mucosa The terminal ileum appeared normal. The retroflexed view of the distal rectum and anal verge was normal and showed no anal or rectal abnormalities. No polyps, tumors, colitis, etc throughout Estimated Blood Loss: Estimated blood loss: none. Impression: - Diverticulosis in the sigmoid colon. - Sigmoid colon is sharply angulated and tortuous which may correclate with her symptoms - The examined portion of the terminal ileum was normal. - Submucosal lipoma near hepatic flexure - The distal rectum and anal verge are normal on retroflexion view. - No specimens collected. Recommendation: - Discharge patient to home. - Resume previous diet today. - Continue present medications. - Repeat colonoscopy in 5 years for surveillance. - Return to my office PRN. - Patient has a contact number available for emergencies. The signs and symptoms of potential delayed complications were discussed with the patient. Return to normal activities tomorrow. Written discharge instructions were provided to the patient. - The patient is not currently taking anticoagulant or antiplatelet agents. Procedure Code(s): --- Professional --- 27902, Colonoscopy, flexible; diagnostic, including collection of specimen(s) by brushing or washing, when performed (separate procedure) --- Technical --- 57856, Colonoscopy, flexible; diagnostic, including collection of specimen(s) by brushing or washing, when performed (separate procedure) Diagnosis Code(s): --- Professional --- K57.30, Diverticulosis of large intestine without perforation or abscess without bleeding R10.32, Left lower quadrant pain --- Technical --- K57.30, Diverticulosis of large intestine without perforation or abscess without bleeding R10.32, Left lower quadrant pain CPT copyright 2020 [employer]. All rights reserved. The codes documented in this report are preliminary and upon yard pilot review may be revised to meet current compliance requirement (more content not included)... Normal [facility] HISTORY PHYSICALon HISTORY PHYSICAL HNO ID: [id number] Author: MAYANK CORRALES APRN.CREW TEAM MEMBER Service: Anesthesiology Author Type: Nurse Practitioner Type: H&P Filed: 09/28/2024 10:10 Note Text: HISTORY AND PHYSICAL EXAMINATION SERVICE DATE: 09/28/2024 SERVICE TIME: 8:52 AM PRIMARY CARE PHYSICIAN: Julisa Cheung MD REASON FOR VISIT: Francia Gama is a 64 year old female who is scheduled for Colonoscopy Screening at the request of Dr. Steven Peoples for routine HANDP. The patient has the following: ACTIVE PROBLEM LIST Gastroesophageal Reflux Disease Without Esophagitis Other Specified Disorder of Gallbladder Class 1 Obesity Essential Hypertension, Benign Dietary Counseling and Surveillance Abnormal Ekg Spondylolisthesis, Lumbar Region Body Mass Index 31.0-31.9, Adult Chronic Bilateral Low Back Pain Gastroesophageal Reflux Disease With Esophagitis Without Hemorrhage Vitamin D Deficiency Paraesophageal Hernia Subjective CHIEF COMPLAINT: Screening for colon cancer [Z12.11] The reason for this visit is to perform a comprehensive review of the patient's past medical history, assess their current health status and obtain any additional testing required based on anesthesia guidelines. We will also identify any potential anesthesia problems or contraindications to the planned procedure. HPI: Patient present to [facility] for the above procedure. Patient here for routine colonoscopy for colon cancer screening. Patient with hx of Hiatal Hernia repair in the past. Patient recently complains of constipation 3-4 times a week. Also complaint of nausea. Denies any vomiting or diarrhea with this. Denies any abdominal pain. Denies any melena or hematochezia. Patient denies any other problems at this time. Denies any family history of Colon cancer or other Gastric ca. Patient agreed to planned procedure. PAST MEDICAL HISTORY Diagnosis Date Acute deep vein thrombosis (DVT) of popliteal vein of left lower extremity (HCC) 06/2020 Eliquis x 3 months off now. After a fall Depression Dysphagia Essential hypertension, benign Generalized anxiety disorder GERD (gastroesophageal reflux disease) Hiatal hernia AARON (obstructive sleep apnea) mild -no CPAP Spondylolisthesis of lumbar region PAST SURGICAL HISTORY Procedure Laterality Date CAPSULE ENDOSCOPY SMALL BOWEL WITH EGD (HL,MM) 06/01/2015 COLONOSCOPY W/BIOPSY SINGLE/MULTIPLE 05/25/2015 EGD WITH BIOPSY(S) 05/27/2015 hiatal hernia; Dr. Killian EGD WITH BIOPSY(S) 04/10/2021 Dr. Saavedra LAMINECTOMY,LUMBAR 07/24/2015 L4-5 with facetectomy LAPS RPR PARAESPHGL HRNA INCL FUNDPLSTY W/MESH 08/27/2015 with anterior/posterior gastropexy; Dr. Giles NEAL SURG CHOLECYSTECTOMY W/CHOLANGIOGRAPHY 09/10/2008 nORMAL c LUMBAR SPINE FUSION COMBINED 05/07/2021 L4-5 w/iliac bone graft AND facetectomy TOTAL ABDOMINAL HYSTERECT W/WO RMVL TUBE OVARY 10/07/2007 TX ECTOPIC W/O SALPINGAND/OOPHORECT HEIDY WRIST SURGERY HX Left 05/07/2007 fusion wrist-partial WRIST SURGERY HX Left 04/07/2006 fusion wrist-partial FAMILY HISTORY Problem Relation Age of Onset other (a fib) Mother Diabetes Mother other (HTn) Mother Coronary Artery Disease Father Heart Failure Father Diabetes Brother other (cardiac stents) Brother Heart Brother Heart Maternal Grandmother Cancer Maternal Grandfather Cancer Paternal Grandmother SOCIAL HISTORY: Social History Tobacco Use Smoking status: Former Current packs/day: 0.00 Types: Cigarettes Start date: 05/14/2002 Quit date: 11/12/2008 Years since quittin.8 Smokeless tobacco: Never Tobacco comments: 1 pack per week Vaping Use Vaping status: Former Substance Use Topics Alcohol use: Yes Alcohol/week: 7.0 standard drinks of alcohol Types: 7 Cans of Beer (12oz) per week Comment: socially-once weekly Drug use: Yes Types: Marijuana Comment: occ Prior to Admission medications as of 09/28/24 0843 Medication Sig Last Dose Taking DULoxetine (CYMBALTA) 30 mg capsule Take 1 capsule by mouth every afternoon. 09/26/2024 at 1200 Yes sucralfate (CARAFATE) 1 gram tablet TAKE 1 TABLET BY MOUTH TWICE DAILY. FOLLOW SLURRY INSTRUCTIONS. 09/21/2024 at [address] (PROTONIX) 40 mg tablet Take 1 tablet by mouth two times a day. 09/26/2024 at 0600 Yes buPROPion XL (WELLBUTRIN XL) 300 mg 24 hr tablet Take 300 mg by mouth once daily. 09/26/2024 at 1200 Yes Cholecalciferol, Vitamin D3, 50 mcg (2,000 unit) cap Take 1 capsule by mouth once daily. 09/26/2024 at 1200 Yes fluticasone (FLONASE) 50 mcg/actuation nasal spray Use 2 (TWO) sprays IN EACH NOSTRIL DAILY DIRECTED 09/27/2024 Yes fexofenadine HCl (BETTY ORAL) Take by mouth once daily. 09/26/2024 Yes losartan-hydroCHLORO thiazide (HYZAAR) 100-25 mg per tablet Take 1 tablet by mouth once daily. 09/26/2024 at 1200 Yes amlodipine besylate (AMLODIPINE ORAL) Take 10 mg by mouth once daily. 09/26/2024 at 1200 Yes cyclobenzaprine (more content not included)... Normal [facility] RF Gastrointestinal tract up per Views W air contrast PO and W barium contrast Arsalan 08-30-2024 IMPRESSION: Postoperative changes of Rosenda fundoplication. Recurrent moderate-sized hiatal hernia. Positive for gastroesophageal reflux. Real Estate Investor: JAKUB Transcribe Date/Time: Aug 30 2024 11:24A Dictated by : LUISANA MILLER MD This examination was interpreted and the report reviewed and electronically signed by: LUISANA MILLER MD on Aug 30 2024 11:28AM EST [facility] * * *Final Report* * * DATE OF EXAM: Aug 30 2024 10:09AM [id number] - XR UPPER GI DOUBLE CONTRAST/AIR / PROCEDURE REASON: Gastroesophageal reflux disease, unspecified whether esophagitis present * * * * Physician Interpretation * * * * EXAM TITLE: XR UPPER GI DOUBLE CONTRAST/AIR DATE: 08/30/2024 INDICATION: Gastroesophageal reflux. History fundoplication 9 years ago. COMPARISON: None TECHNIQUE: A biphasic examination of the esophagus, stomach and duodenum was performed utilizing effervescent granules (E-Z-Gas), high density barium (120 cc EZHD), and low density barium (88 cc E-Z-Paque). Images were stored in a permanent archive. The study was performed by Leanna Del Rosario RPA. 56 images were obtained. 79 seconds of fluoroscopic time were utilized. There is normal pharyngeal and laryngeal movement with swallowing. Esophagus: No stricture. No ulcerations or erosions. Postoperative changes of Rosenda fundoplication. Recurrent moderate-sized hiatal hernia noted. Positive for gastroesophageal reflux. Stomach: No ulcerations or erosions. Normal distensibility. Duodenum: No ulcerations or erosions. Normal distensibility. [employer] [facility] Provider, [facility] - 08/30/2024 * * *Final Report* * * DATE OF EXAM: Aug 30 2024 10:09AM [id number] - XR UPPER GI DOUBLE CONTRAST/AIR / PROCEDURE REASON: Gastroesophageal reflux disease, unspecified whether esophagitis present * * * * Physician Interpretation * * * * EXAM TITLE: XR UPPER GI DOUBLE CONTRAST/AIR DATE: 08/30/2024 INDICATION: Gastroesophageal reflux. History fundoplication 9 years ago. COMPARISON: None TECHNIQUE: A biphasic examination of the esophagus, stomach and duodenum was performed utilizing effervescent granules (E-Z-Gas), high density barium (120 cc EZHD), and low density barium (88 cc E-Z-Paque). Images were stored in a permanent archive. The study was performed by Leanna Del Rosario RPA. 56 images were obtained. 79 seconds of fluoroscopic time were utilized. There is normal pharyngeal and laryngeal movement with swallowing. Esophagus: No stricture. No ulcerations or erosions. Postoperative changes of Rosenda fundoplication. Recurrent moderate-sized hiatal hernia noted. Positive for gastroesophageal reflux. Stomach: No ulcerations or erosions. Normal distensibility. Duodenum: No ulcerations or erosions. Normal distensibility. IMPRESSION IMPRESSION: Postoperative changes of Rosenda fundoplication. Recurrent moderate-sized hiatal hernia. Positive for gastroesophageal reflux. Real Estate Investor: JAKUB Transcribe Date/Time: Aug 30 2024 11:24A Dictated by : LUISANA MILLER MD This examination was interpreted and the report reviewed and electronically signed by: LUISANA MILLER MD on Aug 30 2024 11:28AM EST [facility] Radiology Study observation (narrative) [facility] RF Gastrointestinal tract up per Views W air contrast PO and W barium contrast POOrdered By: [facility] Provider on 08-30-2024 [facility] XR UPPER GI DOUBLE CONTRAST/ AIRon 08-30-2024 XR UPPER GI DOUBLE CONTRAST/AIR * * *Final Report* * * DATE OF EXAM: Aug 30 2024 10:09AM [id number] - XR UPPER GI DOUBLE CONTRAST/AIR / PROCEDURE REASON: Gastroesophageal reflux disease, unspecified whether esophagitis present * * * * Physician Interpretation * * * * EXAM TITLE: XR UPPER GI DOUBLE CONTRAST/AIR DATE: 08/30/2024 INDICATION: Gastroesophageal reflux. History fundoplication 9 years ago. COMPARISON: None TECHNIQUE: A biphasic examination of the esophagus, stomach and duodenum was performed utilizing effervescent granules (E-Z-Gas), high density barium (120 cc EZHD), and low density barium (88 cc E-Z-Paque). Images were stored in a permanent archive. The study was performed by Leanna Del Rosario RPA. 56 images were obtained. 79 seconds of fluoroscopic time were utilized. There is normal pharyngeal and laryngeal movement with swallowing. Esophagus: No stricture. No ulcerations or erosions. Postoperative changes of Rosenda fundoplication. Recurrent moderate-sized hiatal hernia noted. Positive for gastroesophageal reflux. Stomach: No ulcerations or erosions. Normal distensibility. Duodenum: No ulcerations or erosions. Normal distensibility. IMPRESSION: Postoperative changes of Rosenda fundoplication. Recurrent moderate-sized hiatal hernia. Positive for gastroesophageal reflux. Real Estate Investor: JAKUB Transcribe Date/Time: Aug 30 2024 11:24A Dictated by : LUISANA MILLER MD This examination was interpreted and the report reviewed and electronically signed by: LUISANA MILLER MD on Aug 30 2024 11:28AM EST [id number] CN [facility] CNCOon 08-22-2024 CNCO Letter Text [facility] CNPNon 08-17-2024 CNPN Telephone (AGGENS3) FRANCIA GAMA ([id number]) 1960 F Date Time Provider Department 08/17/24 Steven PEOPLES AGGENS3 During your visit today, we recorded the following information about you: Deann Santos 08/17/2024 9:55 AM Signed Lm for return call to schedule procedure 08/31/[address] Peoples. Deann Santos August 17, 2024 9:55 AM Allergies As of Date: 08/17/2024 Noted Allergy Reaction KIWI 08/06/2019 10 - Anaphylaxis LATEX, NATURAL RUBBER 08/06/2019 4 - Hives TETRACYCLINE 04/29/2006 11 - Vomiting PAROXETINE 05/17/2017 16 - Unknown MORPHINE 11/15/2019 9 - Itching Date Reviewed: 08/02/2024 Reviewed by: Mitra Saavedra MD - Fully Assessed Prescriptions as of 08/17/2024 - DULoxetine (CYMBALTA) 30 mg capsule Take 1 capsule by mouth every afternoon. - sucralfate (CARAFATE) 1 gram tablet TAKE 1 TABLET BY MOUTH TWICE DAILY. FOLLOW SLURRY INSTRUCTIONS. - pantoprazole DR (PROTONIX) 40 mg tablet Take 1 tablet by mouth two times a day. - cyclobenzaprine (FLEXERIL) 10 mg tablet Take 1 tablet by mouth three times daily as needed for muscle spasm. - buPROPion XL (WELLBUTRIN XL) 300 mg 24 hr tablet Take 300 mg by mouth once daily. - Cholecalciferol, Vitamin D3, 50 mcg (2,000 unit) cap Take 1 capsule by mouth once daily. - fluticasone (FLONASE) 50 mcg/actuation nasal spray Use 2 (TWO) sprays IN EACH NOSTRIL DAILY DIRECTED - polyethylene glycol 3350 (MIRALAX, GLYCOLAX) 17 gram/dose powder Use as directed for Miralax / Gatorade Bowel Prep Kit - Gatorade Sports Drink Use as directed for Miralax / Gatorade Bowel Prep Kit - Bisacodyl (DULCOLAX) 5 mg tab Use as directed for Miralax / Gatorade Bowel Prep Kit - fexofenadine HCl (BETTY ORAL) Take by mouth once daily. - losartan-hydroCHLORO thiazide (HYZAAR) 100-25 mg per tablet Take 1 tablet by mouth once daily. - pregabalin (LYRICA) 150 mg capsule Take 1 capsule by mouth twice daily for 30 days. - amlodipine besylate (AMLODIPINE ORAL) Take 10 mg by mouth once daily. - METOPROLOL SR 100 MG 24 HR TAB Take 100 mg by mouth twice daily. - citalopram hydrobromide(CELEXA 40 MG TAB) Take one(1) tablet daily. Problem List As Of Date 08/17/2024 Noted Resolved Gastroesophageal reflux disease without esophag*04/29/2006 DIS OF GALLBLADDER NEC [K82.8] 07/25/2008 Class 1 obesity [E66.811] 07/04/2020 Essential hypertension, benign [I10] Dietary counseling and surveillance [Z71.3] 04/24/2021 Abnormal EKG [R94.31] 04/24/2021 Spondylolisthesis, lumbar region [M43.16] 05/07/2021 Body mass index 31.0-31.9, adult [Z68.31] 08/12/2021 Chronic bilateral low back pain [M54.50, G89.29]08/12/2021 Gastroesophageal reflux disease with esophagiti* Vitamin D deficiency [E55.9] 08/12/2021 Paraesophageal hernia [K44.9] 08/12/2021 Encounter Status:Closed by DEANN SANTOS on 08/17/24 [facility] Jose Roberto 08-08-2024 CNPN Telephone (AGGENS3) FRANCIA GAMA ([id number]) 1960 F Date Time Provider Department 08/08/24 Steven PEOPLES3 During your visit today, we recorded the following information about you: Deann Santos 08/08/2024 3:53 PM Signed Lm to schedule colonoscopy with Dr. Peoples. Deann Santos August 08, 2024 3:53 PM Allergies As of Date: 08/08/2024 Noted Allergy Reaction KIWI 08/06/2019 10 - Anaphylaxis LATEX, NATURAL RUBBER 08/06/2019 4 - Hives TETRACYCLINE 04/29/2006 11 - Vomiting PAROXETINE 05/17/2017 16 - Unknown MORPHINE 11/15/2019 9 - Itching Date Reviewed: 08/02/2024 Reviewed by: Mitra Saavedra MD - Fully Assessed Prescriptions as of 08/08/2024 - DULoxetine (CYMBALTA) 30 mg capsule Take 1 capsule by mouth every afternoon. - sucralfate (CARAFATE) 1 gram tablet TAKE 1 TABLET BY MOUTH TWICE DAILY. FOLLOW SLURRY INSTRUCTIONS. - pantoprazole DR (PROTONIX) 40 mg tablet Take 1 tablet by mouth two times a day. - cyclobenzaprine (FLEXERIL) 10 mg tablet Take 1 tablet by mouth three times daily as needed for muscle spasm. - buPROPion XL (WELLBUTRIN XL) 300 mg 24 hr tablet Take 300 mg by mouth once daily. - Cholecalciferol, Vitamin D3, 50 mcg (2,000 unit) cap Take 1 capsule by mouth once daily. - fluticasone (FLONASE) 50 mcg/actuation nasal spray Use 2 (TWO) sprays IN EACH NOSTRIL DAILY DIRECTED - polyethylene glycol 3350 (MIRALAX, GLYCOLAX) 17 gram/dose powder Use as directed for Miralax / Gatorade Bowel Prep Kit - Gatorade Sports Drink Use as directed for Miralax / Gatorade Bowel Prep Kit - Bisacodyl (DULCOLAX) 5 mg tab Use as directed for Miralax / Gatorade Bowel Prep Kit - fexofenadine HCl (BETTY ORAL) Take by mouth once daily. - losartan-hydroCHLORO thiazide (HYZAAR) 100-25 mg per tablet Take 1 tablet by mouth once daily. - pregabalin (LYRICA) 150 mg capsule Take 1 capsule by mouth twice daily for 30 days. - amlodipine besylate (AMLODIPINE ORAL) Take 10 mg by mouth once daily. - METOPROLOL SR 100 MG 24 HR TAB Take 100 mg by mouth twice daily. - citalopram hydrobromide(CELEXA 40 MG TAB) Take one(1) tablet daily. Problem List As Of Date 08/08/2024 Noted Resolved Gastroesophageal reflux disease without esophag*04/29/2006 DIS OF GALLBLADDER NEC [K82.8] 07/25/2008 Class 1 obesity [E66.811] 07/04/2020 Essential hypertension, benign [I10] Dietary counseling and surveillance [Z71.3] 04/24/2021 Abnormal EKG [R94.31] 04/24/2021 Spondylolisthesis, lumbar region [M43.16] 05/07/2021 Body mass index 31.0-31.9, adult [Z68.31] 08/12/2021 Chronic bilateral low back pain [M54.50, G89.29]08/12/2021 Gastroesophageal reflux disease with esophagiti* Vitamin D deficiency [E55.9] 08/12/2021 Paraesophageal hernia [K44.9] 08/12/2021 Encounter Status:Closed by DEANN SANTOS on 08/08/24 [facility] CNOVon 08-02-2024 CNOV Office Visit (AGGENS4) FRANCIA GAMA ([id number]) 1960 F Date Time Provider Department 08/02/24 11:00 AM MITRA SAAVEDRA AGGENS4 During your visit today, we recorded the following information about you: Pulse Blood pressure Weight Height 73/minute 160/82 85.9 kg 1.651 m Mitra Saavedra MD 08/02/2024 12:44 PM Signed SURGICAL SERVICES HISTORY AND PHYSICAL EXAMINATION SERVICE DATE: 08/02/2024 SERVICE TIME: 11:44 AM PRIMARY CARE PHYSICIAN: Julisa Cheung MD SUBJECTIVE CHIEF COMPLAINT: hernia HISTORY OF PRESENT ILLNESS: Ms. Gama is a 63 year old female with a PMH of HTN (amlodipine, losartan), anxiety, depression (Wellbutrin), HLD, obesity (35.19--BMI 31.52), chronic lower back pain/spinal stenosis, GERD (Omeprazole and Carafate), LE DVT (x1 in 06/26 after a fall; on Eliquis 3 months) who presents for discussion of recurrent paraesophageal hernia. Today she reports that two months ago she was evaluated at [facility] due to abdominal pain. She underwent CT scan which demonstrated inflammation and a larger hernia. I, unfortunately, do not have access to these images. She states that her symptoms are more severe not than they were 3 years ago. She experiences constant substernal burning and nausea, intermittent bleaching, and regurgitation and emesis after eating and this occurs several times per month. She has rare dysphagia. She remains on Carafate and Prilosec 40 mg BID. Despite taking these medications she continues to have symptoms. I last saw her in clinic on 04/29/2021. Per my last clinic note: Workup: - UGI (01/30/21): moderate-sized hiatal hernia. - GES: WNL - EGD: reflux esophagitis, duodenitis, disrupted fundoplication with recurrent hiatal hernia - Pathology: Benign gastric mucosa with features of very mild reactive gastropathy. Duodenum, biopsy - No pathologic abnormalities. Esophagus, biopsy - Benign squamous mucosa showing no pathologic abnormalities. She endorses symptoms of dysphagia, heartburn, and chest pain which began 1 year ago and has progressively worsened with intake of solids - she also endorses regurgitation, belching, and substernal burning. She reportsthings getting stuck in my throat and it is difficult to swallow. Symptoms of heartburn began approximately 8 months ago at which time she began taking Prilosec daily. She endorses a 6 month history of abdominal pain/epigastric burning. She endorses intermittent nausea with oral intake (of note UGI from 10/2015 after Rosenda demonstrated a large amount of food in the stomach). QOL score today is 40. She endorses lack of appetite. She underwent laparoscopic hiatal hernia repair (large type 3) with Rosenda fundoplication on 08/27/15 due to chronic anemia and Jean's ulcers thought to be due to her large hiatal hernia. She has had good results with no symptoms of anemia, heartburn or regurgitation since that time - until about 8-12 months ago. She lost 40 pounds surrounding the time of hernia repair, but has regained that weight and remains stable around 190-203 pounds. Social Hx: former smoker who quit in 2011 with no relapses; she drinks 6 beers per week; she uses recreational marijuana (one bowel per day); she denies use of other drugs. She works at [employer]. She lives with her daughter Maria L (works at [employer]) PSHx: lumbar laminectomy (L4/5), lap CCx, paraesophageal hernia repair (2014 w/ Dr. Skaggs), ANNA, left wrist fusion, ectopic PAST MEDICAL HISTORY: PAST MEDICAL HISTORY Diagnosis Date Acute deep vein thrombosis (DVT) of popliteal vein of left lower extremity (HCC) 06/2020 Eliquis x 3 months off now. After a fall Depression Dysphagia Essential hypertension, benign Generalized anxiety disorder GERD (gastroesophageal reflux disease) Hiatal hernia AARON (obstructive sleep apnea) mild -no CPAP Spondylolisthesis of lumbar region PAST SURGICAL HISTORY: PAST SURGICAL HISTORY Procedure Laterality Date CAPSULE ENDOSCOPY SMALL BOWEL WITH EGD (HL,MM) 06/01/2015 COLONOSCOPY W/BIOPSY SINGLE/MULTIPLE 05/25/2015 EGD TRANSORAL BIOPSY SINGLE/MULTIPLE 05/27/2015 hiatal hernia; Dr. Killian EGD WITH BIOPSY(S) 04/10/2021 Dr. Saavedra LAMINECTOMY,LUMBAR 07/24/2015 L4-5 with facetectomy LAPS RPR PARAESPHGL HRNA INCL FUNDPLSTY W/MESH 08/27/2015 with anterior/posterior gastropexy; Dr. Skaggs LAPS SURG CHOLECYSTECTOMY W/CHOLANGIOGRAPHY 09/10/2008 nORMAL ioc TOTAL ABDOMINAL HYSTERECT W/WO RMVL TUBE OVARY 10/07/2007 TX ECTOPIC W/O SALPINGAND/OOPHORECT HEIDY WRIST SURGERY HX Left 05/07/2007 fusion wrist-partial WRIST SURGERY HX Left 04/07/2006 fusion wrist-partial FAMILY HISTORY: FAMILY HISTORY Problem Relation Age of Onset other (a fib) Mother Diabetes Mother other (HTn) Mother Coronary Artery Disease Father Heart Fa (more content not included)... [facility] Telephone (AGGENS4) FRANCIA GAMA ([id number]) 1960 F Date Time Provider Department 08/02/24 MITRA SAAVEDRA AGGENS4 During your visit today, we recorded the following information about you: Kelsey Cobb LPN 08/02/2024 2:31 PM Signed Manometry scheduled for 10/12/2024 at 8am followed by EGD at 900. Prep/instructions given to patient at checkout. Kelsey Cobb LPN Allergies As of Date: 08/02/2024 Noted Allergy Reaction KIWI 08/06/2019 10 - Anaphylaxis LATEX, NATURAL RUBBER 08/06/2019 4 - Hives TETRACYCLINE 04/29/2006 11 - Vomiting PAROXETINE 05/17/2017 16 - Unknown MORPHINE 11/15/2019 9 - Itching Date Reviewed: 08/02/2024 Reviewed by: Mitra Saavedra MD - Fully Assessed Reason for Visit: Appointment [186] Cmt: EGD/MANO Prescriptions as of 08/02/2024 - DULoxetine (CYMBALTA) 30 mg capsule Take 1 capsule by mouth every afternoon. - sucralfate (CARAFATE) 1 gram tablet TAKE 1 TABLET BY MOUTH TWICE DAILY. FOLLOW SLURRY INSTRUCTIONS. - pantoprazole DR (PROTONIX) 40 mg tablet Take 1 tablet by mouth two times a day. - cyclobenzaprine (FLEXERIL) 10 mg tablet Take 1 tablet by mouth three times daily as needed for muscle spasm. - buPROPion XL (WELLBUTRIN XL) 300 mg 24 hr tablet Take 300 mg by mouth once daily. - Cholecalciferol, Vitamin D3, 50 mcg (2,000 unit) cap Take 1 capsule by mouth once daily. - fluticasone (FLONASE) 50 mcg/actuation nasal spray Use 2 (TWO) sprays IN EACH NOSTRIL DAILY DIRECTED - polyethylene glycol 3350 (MIRALAX, GLYCOLAX) 17 gram/dose powder Use as directed for Miralax / Gatorade Bowel Prep Kit - Gatorade Sports Drink Use as directed for Miralax / Gatorade Bowel Prep Kit - Bisacodyl (DULCOLAX) 5 mg tab Use as directed for Miralax / Gatorade Bowel Prep Kit - fexofenadine HCl (BETTY ORAL) Take by mouth once daily. - losartan-hydroCHLORO thiazide (HYZAAR) 100-25 mg per tablet Take 1 tablet by mouth once daily. - pregabalin (LYRICA) 150 mg capsule Take 1 capsule by mouth twice daily for 30 days. - amlodipine besylate (AMLODIPINE ORAL) Take 10 mg by mouth once daily. - METOPROLOL SR 100 MG 24 HR TAB Take 100 mg by mouth twice daily. - citalopram hydrobromide(CELEXA 40 MG TAB) Take one(1) tablet daily. Problem List As Of Date 08/02/2024 Noted Resolved Gastroesophageal reflux disease without esophag*04/29/2006 DIS OF GALLBLADDER NEC [K82.8] 07/25/2008 Class 1 obesity [E66.9] 07/04/2020 Essential hypertension, benign [I10] Dietary counseling and surveillance [Z71.3] 04/24/2021 Abnormal EKG [R94.31] 04/24/2021 Spondylolisthesis, lumbar region [M43.16] 05/07/2021 Body mass index 31.0-31.9, adult [Z68.31] 08/12/2021 Chronic bilateral low back pain [M54.50, G89.29]08/12/2021 Gastroesophageal reflux disease with esophagiti* Vitamin D deficiency [E55.9] 08/12/2021 Paraesophageal hernia [K44.9] 08/12/2021 Encounter Status:Closed by KELSEY COBB on 08/02/24 [facility] Jose Roberto 05-25-2024 CNPN Telephone (AGGENS4) FRANCIA GAMA ([id number]) 1960 F Date Time Provider Department 05/25/24 MITRA SAAVEDRA AGGENS4 During your visit today, we recorded the following information about you: Suzie Abraham 05/25/2024 8:04 AM Signed VM received - patient requested to cancel appointment due to transportation issues - appointment cancelled. LVM for patient to reschedule appointment - requested patient call back to reschedule appointment. [employer] message sent to patient. Allergies As of Date: 05/25/2024 Noted Allergy Reaction KIWI 08/06/2019 10 - Anaphylaxis LATEX, NATURAL RUBBER 08/06/2019 4 - Hives TETRACYCLINE 04/29/2006 11 - Vomiting PAROXETINE 05/17/2017 16 - Unknown MORPHINE 11/15/2019 9 - Itching Date Reviewed: 04/02/2022 Reviewed by: Paul Murcia, DO - Fully Assessed Reason for Visit: Appointment [186] Prescriptions as of 05/25/2024 - cyclobenzaprine (FLEXERIL) 10 mg tablet Take 1 tablet by mouth three times daily as needed for muscle spasm. - buPROPion XL (WELLBUTRIN XL) 300 mg 24 hr tablet Take 300 mg by mouth once daily. - Cholecalciferol, Vitamin D3, 50 mcg (2,000 unit) cap Take 1 capsule by mouth once daily. - fluticasone (FLONASE) 50 mcg/actuation nasal spray Use 2 (TWO) sprays IN EACH NOSTRIL DAILY DIRECTED - polyethylene glycol 3350 (MIRALAX, GLYCOLAX) 17 gram/dose powder Use as directed for Miralax / Gatorade Bowel Prep Kit - Gatorade Sports Drink Use as directed for Miralax / Gatorade Bowel Prep Kit - Bisacodyl (DULCOLAX) 5 mg tab Use as directed for Miralax / Gatorade Bowel Prep Kit - fexofenadine HCl (BETTY ORAL) Take by mouth once daily. - losartan-hydroCHLORO thiazide (HYZAAR) 100-25 mg per tablet Take 1 tablet by mouth once daily. - pregabalin (LYRICA) 150 mg capsule Take 1 capsule by mouth twice daily for 30 days. - amlodipine besylate (AMLODIPINE ORAL) Take 10 mg by mouth once daily. - METOPROLOL SR 100 MG 24 HR TAB Take 100 mg by mouth twice daily. - citalopram hydrobromide(CELEXA 40 MG TAB) Take one(1) tablet daily. Problem List As Of Date 05/25/2024 Noted Resolved Gastroesophageal reflux disease without esophag*04/29/2006 DIS OF GALLBLADDER NEC [K82.8] 07/25/2008 Class 1 obesity [E66.9] 07/04/2020 Essential hypertension, benign [I10] Dietary counseling and surveillance [Z71.3] 04/24/2021 Abnormal EKG [R94.31] 04/24/2021 Spondylolisthesis, lumbar region [M43.16] 05/07/2021 Body mass index 31.0-31.9, adult [Z68.31] 08/12/2021 Chronic bilateral low back pain [M54.50, G89.29]08/12/2021 Gastroesophageal reflux disease with esophagiti* Vitamin D deficiency [E55.9] 08/12/2021 Paraesophageal hernia [K44.9] 08/12/2021 Encounter Status:Closed by SUZIE ABRAHAM on 05/25/24 Normal [facility] Abdomen/Pelvis W IV Cont ONL Yon 05-22-2024 Abdomen/Pelvis W IV Cont ONLY [facility] Imaging Services [address] [place] [address] Abdomen/Pelvis W IV Cont ONLY MR#: [id number] Acct: [id number] Name: FRANCIA GAMA Rep #: [id number] : 1960 F 63 From: Julisa vail MD PCP: Dr. Julisa Cheung MD Status: REG ER Study: Abdomen/Pelvis W IV Cont ONLY Date of Exam: Exam# [id number] Ordering Dr: Bentley Walker DO [id number] INDICATION: epigastric pain EXAMINATION: CT Abdomen And Pelvis W/ Contrast Injection TECHNIQUE: Helically acquired images were obtained of the abdomen and pelvis after IV contrast. A radiation dose optimization technique was used for this scan. IV Contrast dosage and agent: [id number] Oral contrast: None. COMPARISON: None. FINDINGS: Visualized lung bases: Unremarkable Liver: Unremarkable Gallbladder: Unremarkable Spleen: Unremarkable Pancreas: Unremarkable Adrenal Glands: Unremarkable Kidneys: Unremarkable Vasculature: Mild scattered aortoiliac atherosclerotic calcifications. GI Tract: Large hiatal hernia. Questionable tiny focus of air seen in the lower mediastinum just anterior to the gastroesophageal junction. (Image 6, series 2). Lymphadenopathy: None Peritoneum: No ascites. Bladder: Unremarkable Reproductive organs: Status post hysterectomy. Bones/Soft tissues: There are diffuse degenerative changes of the spine. 2 mm anterolisthesis L4 on L5. Posterior fusion L4-L5. There is migration of the L4-L5 interbody disc spacer posteriorly causing mild spinal canal stenosis. CT/Abdomen/Pelvis W IV Cont ONLY IMPRESSION: Large hiatal hernia. Questionable tiny focus of air seen in the lower mediastinum just anterior to the GE junction. If clinical concern for perforation, recommend CT Esophagram. Posterior fusion L4-L5 with migration of the L4-L5 interbody disc spacer posteriorly causing mild spinal canal stenosis. Electronically Signed: Julisa Vásquez MD at 18:31 EDT , CC: Dr. Julisa Cheung MD; Dr. Bentley Walker DO [employer] Estate [employer]or: Signed Normal [facility] CBC W/Diff, Automatedon 05-07 Absolute Lymph 1.43 X10 3/uL Normal 0.83-4.51 [facility] Comment on above: Performed By: #### L 501.2450, L500.4050, L100.0100 #### [facility] [address] [place], [address] Absolute Neut 3.1 X10 3/uL Normal 2.0-7.7 [facility] Comment on above: Performed By: #### L 501.2450, L500.4050, L100.0100 #### [facility] [address] [place], [address] Basophils/100 WBC (Bld) 0.4 % Normal 0-1 [facility] Comment on above: Performed By: #### L 501.2450, L500.4050, L100.0100 #### [facility] [address] [place], [address] Eosinophils/100 WBC (Bld) 2.1 % Normal 0-5 [facility] Comment on above: Performed By: #### L 501.2450, L500.4050, L100.0100 #### [facility] [address] [place], [address] Erythrocyte distribution width (RBC) [Ratio] 14.7 % High 11.6-14.6 [facility] Comment on above: Performed By: #### L 501.2450, L500.4050, L100.0100 #### [facility] [address] [place], [address] Hematocrit (Bld) [Volume fraction] 41.0 % Normal 37-47 [facility] Comment on above: Performed By: #### L 501.2450, L500.4050, L100.0100 #### [facility] [address] [place], [address] Hemoglobin (Bld) [Mass/Vol] 13.6 g/dL Normal 12.0-15.0 [facility] Comment on above: Performed By: #### L 501.2450, L500.4050, L100.0100 #### [facility] [address] [place], [address] IG% 0.200 Normal 0.0-0.9 [facility] Comment on above: Result Comment: IG% - Immature Granulocytes (promyelocytes, myelocytes and metamyelocytes) > 1% indicates that a LEFT SHIFT is Present. Performed By: #### L 501.2450, L500.4050, L100.0100 #### [facility] [address] [place], [address] Lymphocytes/100 WBC (Bld) 27.9 % Normal 19-41 [facility] Comment on above: Performed By: #### L 501.2450, L500.4050, L100.0100 #### [facility] [address] [place], [address] MCH (RBC) [Entitic mass] 29.1 pg Normal 27.0-32.0 [facility] Comment on above: Performed By: #### L 501.2450, L500.4050, L100.0100 #### [facility] [address] [place], [address] MCHC (RBC) [Mass/Vol] 33.2 g/dL Normal 32-36 [facility] Comment on above: Performed By: #### L 501.2450, L500.4050, L100.0100 #### [facility] [address] [place], [address] MCV (RBC) [Entitic vol] 87.6 fL Normal 81-99 [facility] Comment on above: Performed By: #### L 501.2450, L500.4050, L100.0100 #### [facility] [address] [place], [address] Monocytes/100 WBC (Bld) 8.2 % Normal 0-10 [facility] Comment on above: Performed By: #### L 501.2450, L500.4050, L100.0100 #### [facility] [address] [place], [address] Neutrophils/100 WBC (Bld) 61.2 % Normal 47-70 [facility] Comment on above: Performed By: #### L 501.2450, L500.4050, L100.0100 #### [facility] [address] [place], [address] Nucleated RBC (Bld) [#/Vol] 0 10*3/uL Normal 0-5 [facility] Comment on above: Performed By: #### L 501.2450, L500.4050, L100.0100 #### [facility] [address] [place], [address] Platelet mean volume (Bld) [Entitic vol] 10.0 fL Normal 6.2-12.0 [facility] Comment on above: Performed By: #### L 501.2450, L500.4050, L100.0100 #### [facility] [address] [place], [address] Platelets (Bld) [#/Vol] 279 10*3/uL Normal 150-450 [facility] Comment on above: Performed By: #### L 501.2450, L500.4050, L100.0100 #### [facility] [address] [place], [address] RBC (Bld) [#/Vol] 4.68 10*6/uL Normal 4.2-5.4 [facility] Comment on above: Performed By: #### L 501.2450, L500.4050, L100.0100 #### [facility] [address] [place], [address] RDW SD 47.1 fl High 35.1-43.9 [facility] Comment on above: Performed By: #### L 501.2450, L500.4050, L100.0100 #### [facility] [address] [place], [address] WBC (Bld) [#/Vol] 5.1 10*3/uL Normal 4.4-11.0 [facility] Comment on above: Performed By: #### L 501.2450, L500.4050, L100.0100 #### [facility] [address] [place], [address] Chest without Contraston Chest without Contrast [facility] Services [address] [place] [address] Chest without Contrast MR#: [id number] Acct: [id number] Name: FRANCIA GAMA Rep #: [id number] : 1960 F 63 From: Julisa vail MD PCP: Dr. Julisa Cheung MD Status: REG ER Study: Chest without Contrast Date of Exam: 05/22/24 Exam# [id number] Ordering Dr: Bentley Walker DO ADDENDUM by Julisa Vásquez MD on 05/22/24 at 1958 [id number] INDICATION: Perforation EXAMINATION: CT Esophagram W/O Contrast Injection TECHNIQUE: Helically acquired images were obtained of the chest without IV contrast. A radiation dose optimization technique was used for this scan. COMPARISON: CT abdomen same date. FINDINGS: Lungs: Unremarkable Mediastinum: The cardiomediastinal silhouette is not enlarged. No mediastinal, hilar or axillary adenopathy. Mild aortic arch and coronary artery calcifications. There is a large hiatal hernia with patulous esophagus. No evidence of leak of oral contrast into the mediastinum. Pleura: Unremarkable Bones/Soft tissues: Mild scattered degenerative changes of the visualized spine. Upper abdomen: Refer to CT abdomen pelvis report same date 05/22/241958 Date cc: Dr. Julisa Cheung MD; Dr. Bentley Walker, DO * Signed ADDENDUM by Julisa Vásquez MD on 05/22/[address]/Chest without Contrast IMPRESSION: Large hiatal hernia with no evidence of esophageal perforation. N.B. : Rebecca Clinton RN, confirmed on 05/22/2024 20:46:27 (ET) that the healthcare facility has received the radiology report. Electronically Signed: Julisa Vásquez MD at 19:59 EDT , 05/22/242052 Date cc: Dr. Julisa Cheung MD; Dr. Bentley Walker DO * Signed ACR Level 3 findings have been noted. An addendum which confirms receipt of the report will follow. [id number] INDICATION: Perforation EXAMINATION: CT Esophagram W/O Contrast Injection TECHNIQUE: Helically acquired images were obtained of the chest without IV contrast. A radiation dose optimization technique was used for this scan. COMPARISON: CT abdomen same date. FINDINGS: Lungs: Unremarkable Mediastinum: The cardiomediastinal silhouette is not enlarged. No mediastinal, hilar or axillary adenopathy. Mild aortic arch and coronary artery calcifications. There is a large hiatal hernia with patulous esophagus. No evidence of leak of oral contrast into the mediastinum. Pleura: Unremarkable Bones/Soft tissues: Mild scattered degenerative changes of the visualized spine. Upper abdomen: Refer to CT abdomen pelvis report same date CT/Chest without Contrast IMPRESSION: Large hiatal hernia with no evidence of esophageal perforation. Electronically Signed: Julisa Vásquez MD at 19:59 EDT , CC: Dr. Julisa Cheung MD; Dr. 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, [address] Albumin/Globulin [Mass ratio] 0.8 {ratio} Low 0.9-2.4 [facility] Comment on above: Performed By: #### L 501.2450, L500.4050, L100.0100 #### [facility] [address] [place], [address] ALK P 102 U/L Normal 45-117 [facility] Comment on above: Performed By: #### L 501.2450, L500.4050, L100.0100 #### [facility] [address] [place], [address] ALT [Catalytic activity/Vol] 35 U/L Normal 13-56 [facility] Comment on above: Performed By: #### L 501.2450, L500.4050, L100.0100 #### [facility] [address] [place], [address] AST [Catalytic activity/Vol] 38 U/L High 15-37 [facility] Comment on above: Performed By: #### L 501.2450, L500.4050, L100.0100 #### [facility] [address] [place], [address] Bilirubin [Mass/Vol] 0.50 mg/dL Normal 0.20-1.[address] [facility] Comment on above: Result Comment: For patients on eltrombopag therapy, use of Dimension [place] TBIL is not recommended. Performed By: #### L 501.2450, L500.4050, L100.0100 #### [facility] [address] [place], [address] BUN/CRE 13.7 RATIO Normal 10-20 [facility] Comment on above: Performed By: #### L 501.2450, L500.4050, L100.0100 #### [facility] [address] [place], [address] CA,Total 9.1 mg/dL Normal 8.5-10.1 [facility] Comment on above: Performed By: #### L 501.2450, L500.4050, L100.0100 #### [facility] [address] [place], [address] Chloride [Moles/Vol] 105 mmol/L Normal 98-[address] [facility] Comment on above: Performed By: #### L 501.2450, L500.4050, L100.0100 #### [facility] [address] [place], [address] CO2 [Moles/Vol] 27.0 mmol/L Normal 21.0-32.0 [facility] Comment on above: Performed By: #### L 501.2450, L500.4050, L100.0100 #### [facility] [address] [place], [address] Creatinine [Mass/Vol] 0.87 mg/dL Normal 0.55-1.02 [facility] Comment on above: Result Comment: The validity of the calculated GFR GFRAA in patients over 70 years has not been determined. Clinical correlation is essential. Performed By: #### L 501.2450, L500.4050, L100.0100 #### [facility] [address] [place], [address] ECRCL 72.86 ml/min Normal [facility] Comment on above: Performed By: #### L 501.2450, L500.4050, L100.0100 #### [facility] [address] [place], [address] EST GFR - AA 84 mL/min Normal >60 [facility] Comment on above: Result Comment: Afri can Latvian GFR Calc Performed By: #### L 501.2450, L500.4050, L100.0100 #### [facility] [address] [place], [address] GAP 7 Normal 5-15 [facility] Comment on above: Performed By: #### L 501.2450, L500.4050, L100.0100 #### [facility] [address] [place], [address] GFR/1.73 sq M.predicted among non-blacks MDRD (S/P/Bld) [Vol rate/Area] 70 mL/min/{1.73_m2} Normal >60 [facility] Comment on above: Result Comment: Non- GFR Calc Performed By: #### L 501.2450, L500.4050, L100.0100 #### [facility] [address] [place], [address] Globulin (S) [Mass/Vol] 4.4 g/dL High 2.2-4.2 [facility] Comment on above: Performed By: #### L 501.2450, L500.4050, L100.0100 #### [facility] [address] [place], [address] Glucose [Mass/Vol] 118 mg/dL High 74-106 [facility] Comment on above: Result Comment: Fast ing Glucose result from 100 to 125 mg/dL suggests IMPAIRED HOMEOSTASIS per A.D.A. criteria. Performed By: #### L 501.2450, L500.4050, L100.0100 #### [facility] [address] [place], [address] Potassium [Moles/Vol] 3.3 mmol/L Low 3.5-5.1 [facility] Comment on above: Performed By: #### L 501.2450, L500.4050, L100.0100 #### [facility] [address] [place], [address] Sodium [Moles/Vol] 139 mmol/L Normal 136-145 [facility] Comment on above: Performed By: #### L 501.2450, L500.4050, L100.0100 #### [facility] [address] [place], [address] T PROT 8.1 g/dL Normal 6.4-8.2 [facility] Comment on above: Performed By: #### L 501.2450, L500.4050, L100.0100 #### [facility] [address] [place], [address] Urea nitrogen [Mass/Vol] 12 mg/dL Normal 7-18 [facility] Comment on above: Performed By: #### L 501.2450, L500.4050, L100.0100 #### [facility] [address] [place], [address] Emergency Department Summary on 05-22-2024 Emergency Department Summary [facility] Medical Records Department [address] [place] [address] Emergency Department Summary 05/22/24 MR#: [id number] Acct: [id number] Name: FRANCIA GAMA Rep #: [id number] : 1960 63 From: Bentley Walker DO PCP: Dr. Julisa Cheung MD Status:DEP ER Location: ED HPI HPI - GI History of Present Illness Chief Complaint: Abd Pain Narrative Narrative: 63-year-old female with abdominal pain. She states she has a history of a Rosenda fundoplication that was performed by Dr. Skaggs at [facility]. She states that this was done years ago and the reason the procedure was done because she was bleeding from her stomach due to hiatal hernia. Patient states that she was told that her hiatal hernia repair has been coming undone. She has not an crampy pain in the epigastrium. She states it has been going on for 6 months now. Her primary care doctor recommended that she come to the emergency room to get evaluated due to the worsening pain. Patient denies fever or chills. She denies diarrhea. She does have nausea and states he has trouble eating secondary to pain. She is on omeprazole at home. [facility] Medical History Acute frontal sinusitis, unspecified Severe headache Fatigue Hypertension Home Medications ???Medication ???Instructions ???Recorded ???Last Taken ???Type amlodipine 10 mg tablet 10 mg PO DAILY 06/16/20 Unknown History bupropion HCl 300 mg 24 hr tablet, 300 mg PO DAILY 06/16/20 Unknown History extended release omeprazole 20 mg capsule,delayed 20 mg PO DAILY 07/24/21 Unknown History release amoxicillin 875 mg-potassium 1 tab PO Q12H #14 tabs 04/27/24 Unknown Rx clavulanate 125 mg tablet cholecalciferol (vitamin D3) 50 50 mcg PO QDAY 04/27/24 Unknown History mcg (2,000 unit) capsule duloxetine 30 mg capsule,delayed 30 mg PO QDAY 04/27/24 Unknown History release fluticasone propionate 50 2 spray intranasal QDAY 04/27/24 Unknown History mcg/actuation nasal spray,suspension losartan 100 1 tab PO QDAY 04/27/24 Unknown History mg-hydrochlorothiazi de 12.5 mg tablet meloxicam 15 mg tablet 15 mg PO QDAY 04/27/24 Unknown History sucralfate 100 mg/mL oral 10 ml PO BID #300 mL 05/22/24 Unknown Rx suspension (Carafate) Allergy/AdvReac Type Severity Reaction Status Date / Time latex Allergy Mild Rash Verified 05/22/24 15:15 morphine Allergy Itching Verified 05/22/24 15:15 paroxetine (From Paxil) Allergy Unknown Verified 05/22/24 15:15 Tetracyclines Allergy Unknown Verified 05/22/24 15:15 Family History Other Diabetes Hypertension Surgical History H/O wrist surgery History of back surgery H/O section History of repair of hiatal hernia Hx of tonsillectomy Hx of cholecystectomy History of hysterectomy Social History Smoking Status: Never smoker alcohol intake: never ROS ROS ED Constitutional Constitutional ED: Denies chills, fever(s) or sweats Eyes Eyes: Denies blurry vision or change in vision ENT ENT ED: Denies ear pain or sore throat Cardiovascular Cardiovascular: Denies chest pain, palpitations or racing heartbeat Respiratory/Chest Respiratory/Chest: Denies cough, dyspnea or sputum Gastrointestinal Gastrointestinal: Reports abdominal pain and nausea; Denies constipation or vomiting Genitourinary Genitourinary ED: Denies dysuria, hematuria or urinary frequency Musculoskeletal Musculoskeletal: Denies arthralgias, myalgias or neck pain Integumentary Denies abscess, Abrasions or rash Neurologic Neurologic: Denies headache(s), paresthesias or weakness Psychiatric Psychiatric: Denies anxiety, depression, suicidal ideation or suicidal thoughts Endocrine Endocrinology: Denies polydipsia or polyuria EXAM Physical Exam Const Vital Signs: 05/22/24 15:13 05/22/24 17:13 05/22/24 19:00 Temperature 98.5 F 98.7 F 97.4 F L Temperature Source Oral Oral Temporal Pulse Rate 65 92 70 Respiratory Rate 12 18 18 Blood Pressure 181/126 H Blood Pressure Mean 144 Pulse Ox 98 91 97 Oxygen Delivery Method Room Air Room Air Room Air 05/22/24 20:56 Temperature 97.7 F L Temperature Source Pulse Rate 70 Respiratory Rate 18 Blood Pressure 140/96 H Blood Pressure Mean 110 Pulse Ox 92 Oxygen Delivery Method Positive well nourished General Appearance ED: NAD; Negative for pallor HEENT normocephalic Eyes PERRL and EOMs intact bilaterally Neck no lymphadenopathy Resp normal respiratory effort and clear to auscultation bilaterally Auscultation: Negat (more content not included)... Normal [facility] Lipaseon 05-22-2024 Lipase [Catalytic activity/Vol] 21 U/L Normal 13-75 [facility] Comment on above: Result Comment: Akshat mchugh note: LIPASE revised reference range effective 23. New Lipase methodology. Expected to produce lower values than the previous assay method. NEW Reference Range: 13 - 75 U/L Performed By: #### L 501.2450, L500.4050, L100.0100 #### [facility] [address] [place], [address] Urinalysis, Completeon 05-22 BACTERIA 0 SEEN Normal None Seen [facility] Comment on above: Order Comment: CLEAN CATCH Performed By: #### L 400.0001 #### [facility] [address] [place], [address] EPI,SQUAMOUS 0 SEEN Normal 5-10 [facility] Comment on above: Order Comment: CLEAN CATCH Performed By: #### L 400.0001 #### [facility] [address] [place], [address] Mucus Ql (Urine sed) 0 SEEN Normal [facility] Comment on above: Order Comment: CLEAN CATCH Performed By: #### L 400.0001 #### [facility] [address] [place], [address] RBC 0 SEEN Normal 0-5 [facility] Comment on above: Order Comment: CLEAN CATCH Performed By: #### L 400.0001 #### [facility] [address] [place], [address] WBC 0 SEEN Normal 0-5 [facility] Comment on above: Order Comment: CLEAN CATCH Performed By: #### L [id number] #### [facility] [address] [place], [address] Emergency Department Summary on 05-19-2024 Emergency Department Summary [facility] Medical Records Department [address] [place] [address] Emergency Department Summary 05/19/24 MR#: [id number] Acct: [id number] Name: FRANCIA GAMA Srinivas Rep #: [id number] : 1960 63 From: Simeon Boudreaux [employer] PCP: Dr. Julisa Cheung MD Status:REG ER Location: ED HPI History of Present Illness Chief Complaint: Laceration Narrative Narrative: Patient is a 63-year-old female with history of hypertension who presents to the emergency department with a laceration to the left foot. Patient states that a receptacle was tipped over, and there was glass in the back that struck her in her left foot. Patient has a 2.5 cm laceration to the lateral foot just below the lateral malleolus. No foreign body noted. Full-thickness. Tetanus vaccination up-to-date. [facility] Medical History Acute frontal sinusitis, unspecified Severe headache Fatigue Hypertension Home Medications ???Medication ???Instructions ???Recorded ???Last Taken ???Type amlodipine 10 mg tablet 10 mg PO DAILY 06/16/20 Unknown History bupropion HCl 300 mg 24 hr tablet, 300 mg PO DAILY 06/16/20 Unknown History extended release omeprazole 20 mg capsule,delayed 20 mg PO DAILY 07/24/21 Unknown History release amoxicillin 875 mg-potassium 1 tab PO Q12H #14 tabs 04/27/24 Unknown Rx clavulanate 125 mg tablet cholecalciferol (vitamin D3) 50 50 mcg PO QDAY 04/27/24 Unknown History mcg (2,000 unit) capsule duloxetine 30 mg capsule,delayed 30 mg PO QDAY 04/27/24 Unknown History release fluticasone propionate 50 2 spray intranasal QDAY 04/27/24 Unknown History mcg/actuation nasal spray,suspension losartan 100 1 tab PO QDAY 04/27/24 Unknown History mg-hydrochlorothiazi de 12.5 mg tablet meloxicam 15 mg tablet 15 mg PO QDAY 04/27/24 Unknown History Allergy/AdvReac Type Severity Reaction Status Date / Time latex Allergy Mild Rash Verified 05/19/24 14:44 morphine Allergy Itching Verified 05/19/24 14:44 paroxetine (From Paxil) Allergy Unknown Verified 05/19/24 14:44 Tetracyclines Allergy Unknown Verified 05/19/24 14:44 Family History Other Diabetes Hypertension Surgical History H/O wrist surgery History of back surgery H/O section History of repair of hiatal hernia Hx of tonsillectomy Hx of cholecystectomy History of hysterectomy Social History Smoking Status: Never smoker alcohol intake: never ROS ROS ED ROS Narrative Constitutional: Negative for fever, chills, weight loss, weakness Eyes: Negative for vision loss, vision change, double vision ENT: Negative for any sore throat, ear pain, congestion Cardiovascular: Negative for any chest pain, tightness, palpitations Respiratory: Negative for any cough, sputum production, hemoptysis, dyspnea, dyspnea on exertion, orthopnea Gastrointestinal: Negative for any abdominal pain, nausea, vomiting, diarrhea, constipation, blood in stool, blood in vomit : Negative for any urinary frequency, dysuria, retention, blood in urine Muscle skeletal: Negative for any neck pain, back pain Neurological: Negative for any headache, syncope, dizziness Skin: Negative for any rashes, itching, abrasions. Positive for laceration to the left foot Psychiatric: Negative for any depression, anxiety, stress, suicidal ideation, homicidal ideation Hematologic: Negative for any excessive bruising, easy bleeding EXAM Physical Exam Narrative Exam Narrative: Vital signs reviewed. Extremities: No peripheral edema, no signs of gross trauma or deformity. Active full range of motion of all extremities. Patient has a 2.5 cm laceration to the left lateral foot, this is just below the lateral malleolus. Full-thickness however there is no foreign body. Full range of motion. No neurological focal deficits, patient able to flex and dorsiflex resistance. Neuro: Cranial nerves II through XII intact, no focal neurological deficits. Skin: Clean dry and intact with no rash, purpura, petechiae, vesicles or pustules. Backs/flank: No CVA tenderness, no midline spinal tenderness, no deformity. Psych: Normal mood and affect. No SI, HI or acute psychosis. Const Vital Signs: 05/19/24 14:44 Temperature 97.5 F L Temperature Source Temporal Pulse Rate 90 Respiratory Rate 16 Blood Pressure 118/82 H Blood Pressure Mean 94 Pulse Ox 96 Oxygen Delivery Method Room Air Positive well nourished and well developed General Appearance ED: well developed Physical Exam Const Vital Signs: 05/19/24 14:44 Temperature 97.5 F L Temperature So (more content not included)... Normal [facility] Office Visit Reporton 2023 Office Visit Report [facility] [address] [place] [address] OFFICE VISIT Date of Service: 04/27/24 MR#: [id number] Acct: [id number] Patient: FRANCIA GAMA Rep #: [id number] : 1960 Provider: EDUARDO Cedillo Age/Sex: 63/F Location: [facility] Status: Signed Intake Vital Signs 04/26/24 16:47 04/27/24 15:51 Height 1.68 m 1.68 m Weight: 86.636 kg BMI 30.8 BP 148/90 H Blood Pressure Location Lt brachial Position Sitting Respiration 15 Pulse 90 Pulse Source NIBP Temp 98.2 F Temp Source Temporal Pulse Oximetry (%) 95 Oxygen Delivery Method room air Intake Visit Reasons: Sinus infection Chief Complaint: face pain, Jiménez, right ear pain Filter 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 Required: No Is patient in pain?: Yes Allergies latex Allergy (Mild, Verified 04/27/24 15:56) Rash morphine Allergy (Verified 04/27/24 15:56) Itching paroxetine (From Paxil) Allergy (Verified 04/27/24 15:56) Unknown Tetracyclines Allergy (Verified 04/27/24 15:56) Unknown Medications ???Medication ???Instructions ???Recorded ???Confirmed ???Type amlodipine 10 mg tablet 10 mg PO DAILY 06/16/20 04/27/24 History bupropion HCl 300 mg 24 hr tablet, 300 mg PO DAILY 06/16/20 04/27/24 History extended release omeprazole 20 mg capsule,delayed 20 mg PO DAILY 07/24/21 04/27/24 History release amoxicillin 875 mg-potassium 1 tab PO Q12H #14 tabs 04/27/24 04/27/24 Rx clavulanate 125 mg tablet cholecalciferol (vitamin D3) 50 50 mcg PO QDAY 04/27/24 04/27/24 History mcg (2,000 unit) capsule duloxetine 30 mg capsule,delayed 30 mg PO QDAY 04/27/24 04/27/24 History release fluticasone propionate 50 2 spray intranasal QDAY 04/27/24 04/27/24 History mcg/actuation nasal spray,suspension losartan 100 1 tab PO QDAY 04/27/24 04/27/24 History mg-hydrochlorothiazi de 12.5 mg tablet meloxicam 15 mg tablet 15 mg PO QDAY 04/27/24 04/27/24 History Is last menstrual period known: No Post menopausal: Yes Patient : No Nurse's Note: face pain, Jiménez, right ear pain x1 week without relief.l denies fever, ST, cough, congestion PFSH Medical History Acute frontal sinusitis, unspecified Severe headache Fatigue Hypertension Surgical History H/O wrist surgery History of back surgery H/O section History of repair of hiatal hernia Hx of tonsillectomy Hx of cholecystectomy History of hysterectomy Family History Other Diabetes Hypertension Social History Smoking Status: Never smoker alcohol intake: never HPI HPI Chief Complaint: face pain, Jiménez, right ear pain Details: FRANCIA GAMA, is a 63 F who presents to the office today for face pain, Jiménez, right ear pain. This began about 1 week ago. She has BL maxillary pressure, nasal congestion, and R>L ear pain and pressure. No fever/chills. No cough or SOB. Some nausea but no vomiting or diarrhea. ROS Const Constitutional: No chills, fatigue or fever(s) ENT ENT: Positive for ear or mastoid pain, ear pressure, nasal congestion, sinus pressure and nasal discharge; No sore throat Resp Respiratory: No cough, shortness of breath or wheezing Endo Endocrine: No fatigue Aller/Imm Allergy/Immunologic: No wheezing Exam Const General: cooperative, healthy appearing, comfortable, no acute distress, well developed and well groomed Nutritional Appearance: average body habitus and well nourished Orientation: alert, awake and oriented x3 HENMT Head: normocephalic and atraumatic Ears: hearing grossly normal bilaterally, external ears normal and TM abnormal (erythema R>L) Face and sinus: sinus tenderness maxillary Resp Effort Inspection: normal respiratory effort, able to speak in complete sentences, symmetric chest movement and no cough Auscultation: Bilateral: Clear to Auscultation Cardio Rate: regular rate Rhythm: regular rhythm Heart Sounds: no murmurs Coding Level of Care Code Off vis,est,level 3 Diagnoses Acute frontal sinusitis, unspecified J01.10 Assessment and Plan Assessment and Plan (1) Acute frontal sinusitis, unspecified: Status: Acute Plan: start amox/clav bid x 7 days and mucinex prn if no improvement in 1 week follow up with pcp. Medications: New amoxicillin-pot clavulanate 875-125 mg 1 TAB PO Q12H 14 tabs 0RF 04/27/24 1717 Date Tripp Diallo Signature: Date (if applicable) CC: Normal [facility] Absolute lymphocyte countOrd ered By: Van Cheung on 10-05-2023 Lymphocytes Auto (Unsp spec) [#/Vol] 1.79 10*3/uL 0.83-4.51 [facility] Basophil percentageOrdered B y: Van Cheung on 10-05-2023 Basophil percentage [employer] [facility] Comment on above: Previous reported re sult: 5.8 [id number] by: BURTON on 10/05/23:1807 Basophil percentage 5.8 % 0-5 [facility] Basophils/100 WBC (Bld) 0.5 % 0-1 [facility] Bilirubin [Mass/Vol] 0.30 mg/dL 0.20-1.[address] [facility] Comment on above: For patients on eltr ombopag therapy, use of Dimension [place] TBIL is not recommended. Eosinophils/100 WBC (Bld) 3.3 % 0-5 [facility] Neutrophils (Bld) [#/Vol] 3.2 10*3/uL 2.0-7.7 [facility] Neutrophils/100 WBC (Bld) 56.0 % 47-70 [facility] Protein [Mass/Vol] 7.8 g/dL 6.4-8.2 [facility] Blood erythrocytes count (nu mber/volume)Ordered By: Van Cheung on 10-05-2023 RBC (Bld) [#/Vol] 4.23 10*6/uL 4.2-5.4 [facility] Blood hemoglobin measurement (mass/volume)Ordered By: Van Cheung on 10-05-2023 Hemoglobin (Bld) [Mass/Vol] 12.5 g/dL 12.0-15.0 [facility] Blood leukocytes count corre cted for nucleated erythrocytes (number/volume)Ordered By: Van Cheung on 10-05-2023 WBC corrected for nucl RBC (Bld) [#/Vol] 5.5 K/mm3 4.4-11.0 [facility] Blood lymphocytes/100 leukoc ytesOrdered By: Van Cheung on 10-05-2023 Lymphocytes/100 WBC (Bld) 31.1 % 19-41 [facility] Blood monocytes/100 leukocyt esOrdered By: Van Cheung on 10-05-2023 Monocytes/100 WBC (Bld) 8.9 % 0-10 [facility] Blood platelet mean volumeOr dered By: Van Cheung on 10-05-2023 Platelet mean volume (Bld) [Entitic vol] 10.0 fL 6.2-12.0 [facility] Determination of erythrocyte mean corpuscular volume (MCV)Ordered By: Van Cheung on 10-05-2023 MCV (RBC) [Entitic vol] 90.8 fL 81-99 [facility] Direct bilirubinOrdered By: Van Cheung on 10-05-2023 Bilirubin.direct [Mass/Vol] 0.09 mg/dL 0.00-0.30 [facility] Erythrocyte sedimentation ra teOrdered By: Van Cheung on 10-05-2023 ESR (Bld) [Velocity] 20 mm/h 0-[address] [facility] Hematocrit Auto (Bld) [Volum e fraction]Ordered By: Van Cheung on 10-05-2023 Hematocrit (Bld) [Volume fraction] 38.4 % 37-47 [facility] - Chemistry and C hemistry - challengeOrdered By: Van Cheung on 10-05-2023 Albumin [Mass/Vol] 3.4 g/dL 2.9-4.4 [facility] ALP [Catalytic activity/Vol] 107 U/L 45-117 [facility] ALT [Catalytic activity/Vol] 22 U/L 13-56 [facility] Globulin (S) [Mass/Vol] 4.3 g/dL 2.2-4.2 [facility] - Hematology and Cell countsOrdered By: Van Cheung on 10-05-2023 Erythrocyte distribution width (RBC) [Entitic vol] 47.8 fL 35.1-43.9 [facility] Erythrocyte distribution width (RBC) [Ratio] 14.4 % 11.6-14.6 [facility] Immature granulocytes/100 WBC (Bld) 0.200 % 0.0-0.9 [facility] Comment on above: IG% - Immature Granu locytes (promyelocytes, myelocytes and metamyelocytes) > 1% indicates that a LEFT SHIFT is Present. MCH (RBC) [Entitic mass] 29.6 pg 27.0-32.0 [facility] Nucleated RBC/100 WBC (Bld) [Ratio] 0 % 0-5 [facility] MCHC Auto (RBC) [Mass/Vol]Or dered By: Van Cheung on 10-05-2023 MCHC (RBC) [Mass/Vol] 32.6 g/dL 32-36 [facility] No Panel InformationOrdered By: Van Cheung on 10-05-2023 Addendum Document Comment . [facility] Comment on above: The SPE pattern appe ars unremarkable. Evidence ofmonoclonal protein is not apparent.Performed at: [email or web address] - [facility] [address] [id number] Director: Juan Francisco Hernandez PhD, Phone: [phone] Hoaxd-[id number] 0.2 g/dL 0.0-0.4 [facility] Dkzom-4-Bibmzgcxz 1.0 g/dL 0.4-1.0 [facility] Anti-Nuclear Antibody Screen Negative Negative [facility] Comment on above: Performed at: [email or web address] - [facility] [address] [id number] Director: Juan Francisco Hernandez PhD, Phone: [phone] Gamma Globulins 1.3 g/dL 0.4-1.8 [facility] Platelets bldOrdered By: Cari woods Skye on 10-05-2023 Platelets (Bld) [#/Vol] 304 10*3/uL 150-450 [facility] Protein Fractions Elph [Inte rp]Ordered By: Van Cheung on 10-05-2023 Protein Fractions [Interp] Comment . [facility] Comment on above: Protein electrophore sis scan will follow via computer,mail, or early learning teacher delivery. Serum albumin to globulin ra jesus by protein electrophoresisOrdered By: Van Cheung on 10-05-2023 Albumin/Globulin Elph [Mass ratio] 0.9 0.7-1.7 [facility] Serum globulin measurement ( mass/volume)Ordered By: Van Cheung on 10-05-2023 Globulin (S) [Mass/Vol] 3.8 g/dL 2.2-3.9 [facility] Serum or plasma albumin mila urement (mass/volume)Ordered By: Van Cheung on 10-05-2023 Albumin [Mass/Vol] 3.5 g/dL 3.2-5.0 [facility] Serum or plasma beta globuli n measurement by electrophoresis (mass/volume)Ordered By: Van Cheung on 10-05-2023 Beta globulin Elph [Mass/Vol] 1.2 g/dL 0.7-1.3 [facility] Serum or plasma protein mono clonal measurement by electrophoresis (mass/volume)Ordered By: Van Cheung on 10-05-2023 Protein.monoclonal Elph [Mass/Vol] Not Observed g/dL Not Observed [facility] Serum or plasma uric acid me asurement (mass/volume)Ordered By: Van Cheung on 10-05-2023 Urate [Mass/Vol] 3.5 mg/dL 2.6-6.0 [facility] Comment on above: The drugs N-Acetylcy steine and Metamizole may falsely depress this assay. Serum rheumatoid factor dete ctionOrdered By: Van Cheung on 10-05-2023 Rheumatoid factor Ql (S) < 10.0 IU/mL <15 [facility] Thin prep Papanicolaou smear with manual screeningOrdered By: Van Cheung on 10-05-2023 Thin prep Papanicolaou smear with manual screening 23 U/L 15-37 [facility] Total protein bloodOrdered B y: Van Cheung on 10-05-2023 Protein [Mass/Vol] 7.2 g/dL 6.0-8.5 [facility] Basophil percentageOrdered B y: Van Cheung on 08-11-2023 Bilirubin [Mass/Vol] 0.20 mg/dL 0.20-1.[address] [facility] Comment on above: For patients on eltr ombopag therapy, use of Dimension [place] TBIL is not recommended. Chloride [Moles/Vol] 104 mmol/L 98-[address] [facility] Glucose [Mass/Vol] 98 mg/dL 74-106 [facility] Potassium [Moles/Vol] 3.7 mmol/L 3.5-5.1 [facility] Protein [Mass/Vol] 7.7 g/dL 6.4-8.2 [facility] Sodium [Moles/Vol] 138 mmol/L 136-145 [facility] WBC (Bld) [#/Vol] 5.2 10*3/uL 4.4-11.0 [facility] Blood erythrocytes count (nu mber/volume)Ordered By: Van Cheung on 08-11-2023 RBC (Bld) [#/Vol] 4.36 10*6/uL 4.2-5.4 [facility] Blood hemoglobin measurement (mass/volume)Ordered By: Van Cheung on 08-11-2023 Hemoglobin (Bld) [Mass/Vol] 13.0 g/dL 12.0-15.0 [facility] Blood platelet mean volumeOr dered By: Van Cheung on 08-11-2023 Platelet mean volume (Bld) [Entitic vol] 10.2 fL 6.2-12.0 [facility] Determination of erythrocyte mean corpuscular volume (MCV)Ordered By: Van Cheung on 08-11-2023 MCV (RBC) [Entitic vol] 92.4 fL 81-99 [facility] Hematocrit Auto (Bld) [Volum e fraction]Ordered By: Van Cheung on 08-11-2023 Hematocrit (Bld) [Volume fraction] 40.3 % 37-47 [facility] - Chemistry and C hemistry - challengeOrdered By: Van Cheung on 08-11-2023 ALP [Catalytic activity/Vol] 103 U/L 45-117 [facility] ALT [Catalytic activity/Vol] 29 U/L 13-56 [facility] CO2 [Moles/Vol] 30.0 mmol/L 21.0-32.0 [facility] Globulin (S) [Mass/Vol] 4.0 g/dL 2.2-4.2 [facility] Magnesium [Mass/Vol] 2.7 mg/dL 1.6-2.[address] [facility] Urea nitrogen/Creatinine [Mass ratio] 17.6 mg/mg 10-20 [facility] - Hematology and Cell countsOrdered By: Van Cheung on 08-11-2023 Erythrocyte distribution width (RBC) [Entitic vol] 48.4 fL 35.1-43.9 [facility] Erythrocyte distribution width (RBC) [Ratio] 14.2 % 11.6-14.6 [facility] MCH (RBC) [Entitic mass] 29.8 pg 27.0-32.0 [facility] MCHC Auto (RBC) [Mass/Vol]Or dered By: Van Cheung on 08-11-2023 MCHC (RBC) [Mass/Vol] 32.3 g/dL 32-36 [facility] No Panel InformationOrdered By: Van Cheung on 08-11-2023 Estimated GFR (MDRD) Amer 94 mL/min >60 [facility] Comment on above: GFR Calc Estimated GFR (MDRD) Non-Af Amer 78 mL/min >60 [facility] Comment on above: Non- GFR Calc Thyroid Stimulating Hormone (TSH) 2.62 uIU/mL 0.358-3.74 [facility] Platelets bldOrdered By: Cari Cheung on 08-11-2023 Platelets (Bld) [#/Vol] 293 10*3/uL 150-450 [facility] Serum or plasma albumin mila urement (mass/volume)Ordered By: Van Cheung on 08-11-2023 Albumin [Mass/Vol] 3.7 g/dL 3.2-5.0 [facility] Serum or plasma albumin/glob ulin mass ratioOrdered By: Van Cheung on 08-11-2023 Albumin/Globulin [Mass ratio] 0.9 {ratio} 0.9-2.4 [facility] Serum or plasma calcium mila urement (mass/volume)Ordered By: Van Cheung on 08-11-2023 Calcium [Mass/Vol] 9.1 mg/dL 8.5-10.1 [facility] Serum or plasma creatinine m easurement (mass/volume)Ordered By: Van Cheung on 08-11-2023 Creatinine [Mass/Vol] 0.79 mg/dL 0.55-1.02 [facility] Comment on above: The validity of the calculated GFR & GFRAA in patients over 70 years has not been determined. Clinical correlation is essential. Serum or plasma urea nitroge n measurement (mass/volume)Ordered By: Van Cheung on 08-11-2023 Urea nitrogen [Mass/Vol] 14 mg/dL 7-18 [facility] Thin prep Papanicolaou smear with manual screeningOrdered By: Van Cheung on 08-11-2023 Thin prep Papanicolaou smear with manual screening 26 U/L 15-37 [facility] Thin prep Papanicolaou smear with manual screening 4 5-15 [facility] XR LUMBAR LIMITED 2V AP/LATo n 04-02-2022 [facility] Basophil percentageon 2021 Bilirubin [Mass/Vol] 0.50 mg/dL 0.20-1.[address] [facility] Work Phone: Comment on above: For patients on eltr ombopag therapy, use of Dimension [place] TBIL is not recommended. Chloride [Moles/Vol] 106 mmol/L 98-[address] [facility] Work Phone: Cholesterol [Mass/Vol] 205 mg/dL <200 [facility] Work Phone: Comment on above: <200 mg/dL Desirable 200-240 mg/dL Borderline >240 mg/dL High Risk Glucose [Mass/Vol] 109 mg/dL 74-106 [facility] Work Phone: Comment on above: Fasting Glucose resu lt from 100 to 125 mg/dL suggests IMPAIRED HOMEOSTASIS per A.D.A. criteria. Potassium [Moles/Vol] 3.2 mmol/L 3.5-5.1 [facility] Work Phone: Protein [Mass/Vol] 7.9 g/dL 6.4-8.2 [facility] Work Phone: Sodium [Moles/Vol] 141 mmol/L 136-145 [facility] Work Phone: Triglyceride [Mass/Vol] 80 mg/dL [facility] Work Phone: Comment on above: The drugs N-Acetylcy steine and Metamizole may falsely depress this assay.Serum Triglycerides Reference Interval Normal <150 mg/dL Borderline high 150 - 199 mg/dL High 200 - 499 mg/dL Very High > or = 500 mg/dL WBC (Bld) [#/Vol] 5.2 10*3/uL 4.4-11.0 [facility] Work Phone: Blood erythrocytes count (nu mber/volume)on 01-25-2022 RBC (Bld) [#/Vol] 4.44 10*6/uL 4.2-5.4 [facility] Work Phone: Blood hemoglobin measurement (mass/volume)on 01-25-2022 Hemoglobin (Bld) [Mass/Vol] 13.6 g/dL 12.0-15.0 [facility] Work Phone: Blood platelet mean volumeon 01-25-2022 Platelet mean volume (Bld) [Entitic vol] 10.4 fL 6.2-12.0 [facility] Work Phone: Determination of erythrocyte mean corpuscular volume (MCV)on 01-25-2022 MCV (RBC) [Entitic vol] 91.0 fL 81-99 [facility] Work Phone: [phone] Hematocrit Auto (Bld) [Volum e fraction]on 01-25-2022 Hematocrit (Bld) [Volume fraction] 40.4 % 37-47 [facility] Work Phone: Laboratory - Chemistry and C hemistry - challengeon 01-25-2022 ALP [Catalytic activity/Vol] 96 U/L 45-117 [facility] Work Phone: ALT [Catalytic activity/Vol] 30 U/L 13-56 [facility] Work Phone: CO2 [Moles/Vol] 28.0 mmol/L 21.0-32.0 [facility] Work Phone: Globulin (S) [Mass/Vol] 4.1 g/dL 2.2-4.2 [facility] Work Phone: Urea nitrogen/Creatinine [Mass ratio] 11.3 mg/mg 10-20 [facility] Work Phone: Laboratory - Hematology and Cell countson 01-25-2022 Erythrocyte distribution width (RBC) [Entitic vol] 45.4 fL 35.1-43.9 [facility] Work Phone: Erythrocyte distribution width (RBC) [Ratio] 13.4 % 11.6-14.6 [facility] Work Phone: MCH (RBC) [Entitic mass] 30.6 pg 27.0-32.0 [facility] Work Phone: MCHC Auto (RBC) [Mass/Vol]on 01-25-2022 MCHC (RBC) [Mass/Vol] 33.7 g/dL 32-36 [facility] Work Phone: No Panel Informationon 01-25 Estimated GFR (MDRD) Amer 94 mL/min >60 [facility] Work Phone: Comment on above: GFR Calc Estimated GFR (MDRD) Non-Af Amer 78 mL/min >60 [facility] Work Phone: Comment on above: Non- GFR Calc Thyroid Stimulating Hormone (TSH) 1.83 uIU/mL 0.358-3.74 [facility] Work Phone: Vitamin D 25-Hydroxy 50.8 ng/mL [facility] Work Phone: Comment on above: Vitamin D 25(OH) Sta tus Range Deficiency <20 ng/mL (50nmol/L) Insufficiency 20 - 30 ng/mL (50 - 75 nmol/L) Sufficiency 30 - 100 ng/mL (75 - 250 nmol/L) Toxicity >100 ng/mL (>250 nmol/L) Platelets bldon 01-25-2022 Platelets (Bld) [#/Vol] 289 10*3/uL 150-450 [facility] Work Phone: Serum or plasma albumin mila urement (mass/volume)on 01-25-2022 Albumin [Mass/Vol] 3.8 g/dL 3.2-5.0 [facility] Work Phone: Serum or plasma albumin/glob ulin mass ratioon 01-25-2022 Albumin/Globulin [Mass ratio] 0.9 {ratio} 0.9-2.4 [facility] Work Phone: Serum or plasma calcium mila urement (mass/volume)on 01-25-2022 Calcium [Mass/Vol] 8.8 mg/dL 8.5-10.1 [facility] Work Phone: Serum or plasma cholesterol in HDL measurement (mass/volume)on 01-25-2022 Cholesterol in HDL [Mass/Vol] 62 mg/dL [facility] Work Phone: Comment on above: The drugs N-Acetylcy steine and Metamizole may falsely depress this assay. Reference Range HDL <40 mg/dL Low HDL Cholesterol HDL >or= 60 mg/dL High HDL Cholesterol Serum or plasma cholesterol in VLDL measurement (mass/volume)on 01-25-2022 Cholesterol in VLDL [Mass/Vol] 16 mg/dL 5-40 [facility] Work Phone: Serum or plasma creatinine m easurement (mass/volume)on 01-25-2022 Creatinine [Mass/Vol] 0.80 mg/dL 0.55-1.02 [facility] Work Phone: Comment on above: The validity of the calculated GFR & GFRAA in patients over 70 years has not been determined. Clinical correlation is essential. Serum or plasma low density lipoprotein (LDL) cholesterol measurement (mass/volume)on 01-25-2022 Cholesterol in LDL [Mass/Vol] 127 mg/dL 0-130 [facility] Work Phone: Serum or plasma urea nitroge n measurement (mass/volume)on 01-25-2022 Urea nitrogen [Mass/Vol] 9 mg/dL 7-18 [facility] Work Phone: Thin prep Papanicolaou smear with manual screeningon 01-25-2022 Thin prep Papanicolaou smear with manual screening 32 U/L 15-37 [facility] Work Phone: Thin prep Papanicolaou smear with manual screening 7 5-15 [facility] Work Phone: CNOVon 11-24-2021 CNOV Office Visit (UCWSTR) FRANCIA GAMA ([id number]) 1960 F Date Time Provider Department 11/24/21 2:00 PM CONNOR CHO [facility] During your visit today, we recorded the following information about you: Temperature Pulse Respiration Blood pressure 97.6 degrees 86/minute 18/minute 126/78 Weight 85.7 kg Connor Cho PA-C 11/24/2021 3:07 PM Signed 11/24/2021 Patient presents with: Headache: CHILLS, DIARRHEA X LAST NIGHT, treated for congestion 1 week ago SUBJECTIVE: This is a 61 year old that is here today for Complaint(s) of cough x 1.5 weeks. Seen at the start of symptoms and negative for COVID, primary care provider called in zpak, prednisone, and tessalon. Overall felt like she was starting to improve, but then started last night with JIMÉNEZ, chills, diarrhea. She has had 2 positive COVID exposures since she was last tested-daughter and grandson. Denies fever, SOB, wheezing. Patient vaccinated for COVID, due for booster. PAST MEDICAL HISTORY Diagnosis Date - Acute deep vein thrombosis (DVT) of popliteal vein of left lower extremity (HCC) 06/2020 Eliquis x 3 months off now. After a fall - Depression - Dysphagia - Essential hypertension, benign - Generalized anxiety disorder - GERD (gastroesophageal reflux disease) - Hiatal hernia - AARON (obstructive sleep apnea) mild -no CPAP - Spondylolisthesis of lumbar region ALLERGIES Kiwi; Latex, Natural Rubber; Tetracycline; Paroxetine; and Morphine MEDICATIONS Current Outpatient Medications Medication Sig - cyclobenzaprine (FLEXERIL) 10 mg tablet Take 1 tablet by mouth three times daily as needed for muscle spasm. - buPROPion XL (WELLBUTRIN XL) 300 mg 24 hr tablet Take 300 mg by mouth once daily. - Cholecalciferol, Vitamin D3, 50 mcg (2,000 unit) cap Take 1 capsule by mouth once daily. - fluticasone (FLONASE) 50 mcg/actuation nasal spray Use 2 (TWO) sprays IN EACH NOSTRIL DAILY DIRECTED - fexofenadine HCl (BETTY ORAL) Take by mouth once daily. - losartan-hydroCHLORO thiazide (HYZAAR) 100-25 mg per tablet Take 1 tablet by mouth once daily. - amlodipine besylate (AMLODIPINE ORAL) Take 10 mg by mouth once daily. - METOPROLOL SR 100 MG 24 HR TAB Take 100 mg by mouth twice daily. - citalopram hydrobromide(CELEXA 40 MG TAB) Take one(1) tablet daily. - polyethylene glycol 3350 (MIRALAX, GLYCOLAX) 17 gram/dose powder Use as directed for Miralax / Gatorade Bowel Prep Kit (Patient not taking: Reported on 09/30/2021 ) - Gatorade Sports Drink Use as directed for Miralax / Gatorade Bowel Prep Kit (Patient not taking: Reported on 09/30/2021 ) - Bisacodyl (DULCOLAX) 5 mg tab Use as directed for Miralax / Gatorade Bowel Prep Kit (Patient not taking: Reported on 09/30/2021 ) - pregabalin (LYRICA) 150 mg capsule Take 1 capsule by mouth twice daily for 30 days. Current Facility-Administere d Medications Medication Dose Route Frequency - perflutren lipid microspheres 1.3 mL in NaCl (PF) 0.9% 10 mL injection (DEFINITY) INTRAVENOUS DIRECTED PRN SOCIAL HISTORY Social History Tobacco Use - Smoking status: Former Smoker Years: 6.50 Types: Cigarettes Quit date: 11/12/2008 Years since quittin.0 - Smokeless tobacco: Never Used - Tobacco comment: 1 pack per week Vaping Use - Vaping Use: Former Substance Use Topics - Alcohol use: Yes Alcohol/week: 7.0 standard drinks Types: 7 Cans of Beer (12oz) per week Comment: socially-once weekly - Drug use: Yes Types: Marijuana Comment: occ REVIEW OF SYSTEMS See HPI OBJECTIVE: BP 126/78 Pulse 86 Temp 36.4 ?C (97.6 ?F) Resp 18 Wt 85.7 kg (189 lb) SpO2 97% BMI 31.45 kg/m? APPEARANCE alert, in no acute distress, well-hydrated, well nourished. EYES PERRLA, conjunctiva and sclera normal. EARS External ears normal, canals clear. TMs normal SANA NOSE/SINUS Nares normal. Septum midline. Mucosa normal. No drainage or sinus tenderness. THROAT normal, no erythema NECK Supple, no adenopathy; HEART RRR with normal S1 and S2 LUNG clear to auscultation,No wheezing, rhonchi, rales. + cough present. ASSESSMENT/PLAN: 1. Suspected COVID-19 virus infection - ICD9: V01.79, ICD10: Z20.822 Supportive care with fluids/rest, OTC cough/cold meds prn Reviewed self isolation/quarnatine instructions Note for school given pending test results Reviewed red flags and when to seek care sooner. Consider CXR if not improving or worsening. - COVID WITH FLUA+B, ROUTINE The patient indicates understanding of these issues and agrees with the plan. . Connor Cho PA-C 11/24/2021 Connor Cho PA-C 11/24/2021 2:22 PM Signed Beginning Home Isolation Isolation is used to separate people infected with SARS-CoV-2, the virus that causes COVID-19, from people who are not infected. People who are in isolation should stay home until it?s safe for them to be (more content not included)... [facility] COVID w FLU A+B Routon 11-24 Influenza A PCR Negative [facility] Comment on above: Performed By: #### C OVFLU #### [place] [address] Influenza B PCR Negative [facility] Comment on above: Performed By: #### C OVFLU #### [place] [address] SARS-CoV-2 (COVID-19) RNA HOWIE+probe Ql (Unsp spec) UPPER RESPIRATORY TRACT SWAB [facility] Comment on above: Performed By: #### C OVFLU #### [place] [address] SARS-CoV-2 (COVID-19) RNA HOWIE+probe Ql (Unsp spec) Positive for COVID19 (SARS CoV2) by RT-PCR or equivalent method. Critically abnormal Negative for COVID19 (SARS CoV2) by RT-PCR or equivalent method. [facility] Comment on above: Result Comment: This test was developed and its performance characteristics determined by [facility] [place]. This test has been authorized by FDA under an Emergency Use Authorization (EUA). This test has been validated in accordance with the FDA's Guidance Document Policy for Diagnostics Testing in Laboratories Certified to Perform High Complexity Testing under CLIA prior to Emergency use Authorization for Coronavirus Disease 2019 during the Public Health Emergency issued on January 05, 2020. Test performed by [facility], [facility] [place], [address] [place], [place] [id number]. Performed By: #### C OVFLU #### [place] [address] Laboratory - Microbiology an d Antimicrobial susceptibilityon 11-19-2021 SARS-CoV-2 (COVID-19) RNA HOWIE+probe Ql (Unsp spec) Not detected Not Detect [facility] Work Phone: Comment on above: Normal Reference Ran ge: Not DetectedMethod:(RT-PCR) real-time reverse transcriptase PCRLuminex LD Instrument*The Food and Drug Administration (FDA) has issued an Emergency Use Authorization (EAU) for the LD SARS-CoV-2 Assay for the rapid detection of the virus that causes COVID-19. This test has been validated, but the FDAs independent review of this validation is pending.*Negative results do not preclude infection and should not be used as the sole basis for treatment or patient management. Optimum specimen types and timing for peak viral levels during infections caused by SARS-CoV-2 have not been determined. Collection of multiple specimens from the same patient may be necessary to detect the virus. The possibility of a false negative result should be considered if the patient has clinical presentation or has had recent exposure. PreOp/PreProc COVIDon 2020 SARS-CoV-2 (COVID-19) RNA HOWIE+probe Ql (Unsp spec) UPPER RESPIRATORY TRACT SWAB [facility] Comment on above: Performed By: #### P OCOVD #### [facility] [email or web address] [place] [id number] SARS-CoV-2 (COVID-19) RNA HOWIE+probe Ql (Unsp spec) Negative for COVID19 (SARS CoV2) by RT-PCR or equivalent method. Normal Negative for COVID19 (SARS CoV2) by RT-PCR or equivalent method. [facility] Comment on above: Result Comment: This test was developed and its performance characteristics determined by [facility] [place]. This test has been authorized by FDA under an Emergency Use Authorization (EUA). This test has been validated in accordance with the FDA's Guidance Document Policy for Diagnostics Testing in Laboratories Certified to Perform High Complexity Testing under CLIA prior to Emergency use Authorization for Coronavirus Disease 2019 during the Public Health Emergency issued on January 05, 2020. Test performed by [facility], [facility] [place], [address] [place] [address]. Performed By: #### P OCOVD #### [place] [address] PreOp/PreProc COVIDon 2020 SARS-CoV-2 (COVID-19) RNA HOWIE+probe Ql (Unsp spec) UPPER RESPIRATORY TRACT SWAB [facility] Comment on above: Performed By: #### P OCOVD #### [place] [phone] SARS-CoV-2 (COVID-19) RNA HOWIE+probe Ql (Unsp spec) Negative for COVID19 (SARS CoV2) by RT-PCR or equivalent method. Normal Negative for COVID19 (SARS CoV2) by RT-PCR or equivalent method. [facility] Comment on above: Result Comment: This test was developed and its performance characteristics determined by [facility] [place]. This test has been authorized by FDA under an Emergency Use Authorization (EUA). This test has been validated in accordance with the FDA's Guidance Document Policy for Diagnostics Testing in Laboratories Certified to Perform High Complexity Testing under CLIA prior to Emergency use Authorization for Coronavirus Disease 2019 during the Public Health Emergency issued on January 05, 2020. Test performed by [facility] [place], [address] [place] [address]. Performed By: #### P OCOVD #### [place] [phone] PreOp/PreProc COVIDon 2020 SARS-CoV-2 (COVID-19) RNA HOWIE+probe Ql (Unsp spec) UPPER RESPIRATORY TRACT SWAB [facility] Comment on above: Performed By: #### P OCOVD #### [place] [address] SARS-CoV-2 (COVID-19) RNA HOWIE+probe Ql (Unsp spec) Negative for COVID19 (SARS CoV2) by RT-PCR or equivalent method. Normal Negative for COVID19 (SARS CoV2) by RT-PCR or equivalent method. [facility] Comment on above: Result Comment: This test was developed and its performance characteristics determined by [facility] [place]. This test has been authorized by FDA under an Emergency Use Authorization (EUA). This test has been validated in accordance with the FDA's Guidance Document Policy for Diagnostics Testing in Laboratories Certified to Perform High Complexity Testing under CLIA prior to Emergency use Authorization for Coronavirus Disease 2019 during the Public Health Emergency issued on January 05, 2020. Test performed by [facility], [facility] [place], [address] [place] [address]. Performed By: #### P OCOVD #### [place] [address] MRI LUMBAR SPINE WO/W IVCONo n 07-23-2020 MRI LUMBAR SPINE WO/W IVCON Final Report DATE OF EXAM: Jul 23 2020 10:57AM A1M 0304 - MRI LUMBAR SPINE WO/W IVCON / PROCEDURE REASON: Lumbar spondylosis Physician Interpretation EXAMINATION: MRI LUMBAR SPINE WO/W IVCON CLINICAL HISTORY: Lumbar spondylosis TECHNIQUE: Routine lumbosacral spine MR protocol without and with intravenous gadolinium. MQ: [id number] Contrast: IV administration of 18cc ml of Dotarem COMPARISON: MR lumbar spine 10/03/2019 RESULT: Motion degraded study. Counting reference: Lumbosacral junction. For the purposes of this report, L4-5 is considered the level of the iliac crest and assume there are 5 lumbar-type vertebrae. Anatomic variant: None. Localizer images: Unremarkable. Alignment: Alignment is anatomic. Bone marrow signal/fracture: Possible postsurgical changes from left L4-5 facetectomy. No evidence of pathologic marrow infiltration. L1 vertebral body hemangioma. No evidence of acute fracture. Bilateral L5 pars defects. Conus: The conus is within normal limits of signal intensity and morphology. No abnormal intrathecal enhancement. Paraspinal soft tissues: Paraspinal soft tissues are within normal limits. Diffuse loss of disc signal and mild loss of disc height. Lower thoracic spine: Visualized lower thoracic canal and foramina are patent. T12-L1: Canal and foramina are patent. L1-L2: Facet hypertrophy contribute to mild left foraminal stenosis. Canal is patent. L2-L3: Facet hypertrophy contribute to mild canal stenosis. Foramina are patent. L3-L4: Canal and foramina are patent L4-L5: Disc bulge, facet hypertrophy and ligamentum flavum thickening contribute to moderate canal stenosis and mild to moderate left foraminal stenosis. L5-S1: Canal and foramina are patent Sacrum and iliac wings: The visualized sacrum and iliac wings are within normal limits. IMPRESSION: Bilateral L5 pars defects. No anterolisthesis. Possible postsurgical changes in the lumbar spine. Lumbar spondylosis. Moderate canal stenosis at L4-5. No severe foraminal stenosis throughout. Anatomic Thoracic/Lumbar Variant: None. L4-5 is considered the level of the iliac crest and assume there are 5 lumbar-type vertebrae. Real Estate Investor: JAKUB Transcribe Date/Time: Jul 23 2020 11:41A Dictated by : JOSEMANUEL HUERTA MD This examination was interpreted and the report reviewed and electronically signed by: JOSEMANUEL HUERTA MD on Jul 23 2020 12:06PM [facility], [place], operated by [facility] XR Hand 3+ Views Righton XR Hand 3+ Views Right Exam Date/Time: 01/21/2019 02:04 EDT Reason for Exam: Fall Report STUDY: XR Hand 3+ Views Right;; 01/21/2019 2:04 am INDICATION: Fall. COMPARISON: None. ACCESSION NUMBER(S): [id number] ORDERING CLINICIAN: Maciej Rich FINDINGS: Soft tissue swelling about the 3rd PIP joint. Tiny ossified density dorsal to the PIP joint along its ulnar aspect may be chronic although acute avulsion fractures not excluded. Otherwise no acute fractures identified but there is mild degenerative changes of the interphalangeal joints. IMPRESSION: Small ossified density changes of the 3rd PIP joint may be chronic although acute although postop fracture is not excluded. FINAL REPORT Dictated: 01/21/2019 3:36 am Terri Wilks MD Signed (Electronic Signature): 01/21/2019 3:36 am Signed by: Terri Wilks MD Technologist: [facility] Vital Signs Date Time Vital Sign Value Performing Clinician Facility 04-29-2025 15:14-0400 Body mass index (BMI) [Ratio] 27.79 kg/m2 Mitra Saavedra MD Work Phone: [facility] 04-29-2025 15:14-0400 Body weight 75.75 kg Mitra Saavedra MD Work Phone: [facility] Comment on above: pt reported 04-16-2025 10:53-0400 Body height 165.1 cm April Gromovsky [employer] Work Phone: [facility] 04-16-2025 10:53-0400 Body mass index (BMI) [Ratio] 28.92 kg/m2 April Gromovsky [employer]ENCE [employer] Work Phone: [facility] 04-16-2025 10:53-0400 Body weight 78.83 kg April Gromovsky [employer] Work Phone: [facility] 04-16-2025 10:53-0400 Diastolic blood pressure 70 mm[Hg] April Gromovsky [employer]ENCE [employer] Work Phone: [facility] 04-16-2025 10:53-0400 Heart rate 72 /min April Gromovsky [employer]ENCE [employer] Work Phone: [facility] 04-16-2025 10:53-0400 Systolic blood pressure 124 mm[Hg] April Gromovsky [employer]ENCE [employer] Work Phone: [facility] 03-07-2025 08:10-0400 Body height 165.1 cm Mitra Saavedra MD Work Phone: [facility] 03-07-2025 08:10-0400 Body mass index (BMI) [Ratio] 30.12 kg/m2 Mitra Saavedra MD Work Phone: [facility] 03-07-2025 08:10-0400 Body weight 82.1 kg Mitra Saavedra MD Work Phone: [facility] 03-07-2025 08:10-0400 Diastolic blood pressure 73 mm[Hg] Mitra Saavedra MD Work Phone: [facility] 03-07-2025 08:10-0400 Heart rate 84 /min Mitra Saavedra MD Work Phone: [facility] 03-07-2025 08:10-0400 SaO2% (BldA) [Mass fraction] 97 % Mitra Saavedra MD Work Phone: [facility] 03-07-2025 08:10-0400 Systolic blood pressure 131 mm[Hg] Mitra Saavedra MD Work Phone: [facility] 12-25-2024 13:25-0500 Body temperature 98.8 [degF] Dr. Julisa Cheung MD Work Phone: [facility] 12-25-2024 13:25-0500 Diastolic blood pressure 118 mm[Hg] Dr. Julisa Cheung MD Work Phone: [facility] 12-25-2024 13:25-0500 Heart rate 92 /min Dr. Julisa Cheung MD Work Phone: [facility] 12-25-2024 13:25-0500 Respiratory rate 15 /min Dr. Julisa Cheung MD Work Phone: [facility] 12-25-2024 13:25-0500 SaO2% (BldA) [Mass fraction] 100 % Dr. Julisa Cheung MD Work Phone: [facility] 12-25-2024 13:25-0500 Systolic blood pressure 198 mm[Hg] Dr. Julisa Cheung MD Work Phone: [facility] 12-25-2024 11:44-0500 Body height 165.[address] Julisa Cheung MD Work Phone: [facility] 12-25-2024 11:44-0500 Body mass index (BMI) [Ratio] 30.1 kg/m2 Dr. Julisa Cheung MD Work Phone: [facility] 12-25-2024 11:44-0500 Body weight 82.[address] Julisa Cheung MD Work Phone: [facility] 12-06-2024 08:01-0500 Body height 165.1 cm Mitra Saavedra MD Work Phone: [facility] 12-06-2024 08:01-0500 Body mass index (BMI) [Ratio] 30.39 kg/m2 Mitra Saavedra MD Work Phone: [facility] 12-06-2024 08:01-0500 Body weight 82.83 kg Mitra Saavedra MD Work Phone: [facility] 12-06-2024 08:01-0500 Diastolic blood pressure 80 mm[Hg] Mitra Saavedra MD Work Phone: [facility] 12-06-2024 08:01-0500 Heart rate 79 /min Mitra Saavedra MD Work Phone: [facility] 12-06-2024 08:01-0500 SaO2% (BldA) [Mass fraction] 98 % Mitra Saavedra MD Work Phone: [facility] 12-06-2024 08:01-0500 Systolic blood pressure 177 mm[Hg] Mitra Saavedra MD Work Phone: [facility] 10-12-2024 09:05-0500 Diastolic blood pressure 87 mm[Hg] Mitra Saavedra MD Work Phone: [facility] 10-12-2024 09:05-0500 Heart rate 70 /min Mitra Saavedra MD Work Phone: [facility] 10-12-2024 09:05-0500 Respiratory rate 16 /min Mitra Saavedra MD Work Phone: [facility] 10-12-2024 09:05-0500 SaO2% (BldA) [Mass fraction] 95 % Mitra Saavedra MD Work Phone: [facility] 10-12-2024 09:05-0500 Systolic blood pressure 146 mm[Hg] Mitra Saavedra MD Work Phone: [facility] 10-12-2024 08:48-0500 Body temperature 97.11 [degF] Mitra Savaedra MD Work Phone: [facility] 10-12-2024 07:27-0500 Body height 165.1 cm Mitra Saavedra MD Work Phone: [facility] 10-12-2024 07:27-0500 Body mass index (BMI) [Ratio] 29.95 kg/m2 Mitra Saavedra MD Work Phone: [facility] 10-12-2024 07:27-0500 Body weight 81.65 kg Mitra Saavedra MD Work Phone: [facility] 09-28-2024 10:05-0500 Diastolic blood pressure 89 mm[Hg] MIKALA Peoples MD Work Phone: [facility] 09-28-2024 10:05-0500 Heart rate 76 /min MIKALA Peoples MD Work Phone: [facility] 09-28-2024 10:05-0500 Respiratory rate 19 /min MIKALA Peoples MD Work Phone: [facility] 09-28-2024 10:05-0500 SaO2% (BldA) [Mass fraction] 97 % MIKALA Peoples MD Work Phone: [facility] 09-28-2024 10:05-0500 Systolic blood pressure 122 mm[Hg] MIKALA Peoples MD Work Phone: [facility] 09-28-2024 09:49-0500 Body temperature 97.3 [degF] MIKALA Peoples MD Work Phone: [facility] 08-02-2024 11:01-0400 Body height 165.1 cm Mitra Saavedra MD Work Phone: [facility] 08-02-2024 11:01-0400 Body mass index (BMI) [Ratio] 31.52 kg/m2 Mitra Saavedra MD Work Phone: [facility] 08-02-2024 11:01-0400 Body weight 85.91 kg Mitra Saavedra MD Work Phone: [facility] 08-02-2024 11:01-0400 Diastolic blood pressure 82 mm[Hg] Mitra Saavedra MD Work Phone: [facility] 08-02-2024 11:01-0400 Heart rate 73 /min Mitra Saavedra MD Work Phone: [facility] 08-02-2024 11:01-0400 Systolic blood pressure 160 mm[Hg] Mitra Saavedra MD Work Phone: [facility] 12-03-2022 22:30-0500 Diastolic blood pressure 93 mm[Hg] [facility] 12-03-2022 22:30-0500 Heart rate 77 /min [facility] 12-03-2022 22:30-0500 Respiratory rate 18 /min [facility] 12-03-2022 22:30-0500 SaO2% (BldA) [Mass fraction] 98 % [facility] 12-03-2022 22:30-0500 Systolic blood pressure 172 mm[Hg] [facility] 12-03-2022 19:25-0500 Body height 167.64 cm [facility] 12-03-2022 19:25-0500 Body mass index (BMI) [Ratio] 30.8 kg/m2 [facility] 12-03-2022 19:25-0500 Body temperature 97.2 [degF] [facility] 12-03-2022 19:25-0500 Body weight 86.63 kg [facility] 04-02-2022 10:52-0400 Body height 165.1 cm Paul Twin DO Work Phone: [facility] 04-02-2022 10:52-0400 Body temperature 98.01 [degF] Paul Twin DO Work Phone: [facility] 04-02-2022 10:52-0400 Body weight 89.4 kg Paul Twin DO Work Phone: [facility] 04-02-2022 10:52-0400 Diastolic blood pressure 91 mm[Hg] Paul Twin DO Work Phone: [facility] 04-02-2022 10:52-0400 Heart rate 78 /min Paul Twin DO Work Phone: [facility] 04-02-2022 10:52-0400 SaO2% (BldA) [Mass fraction] 100 % Paul Twin DO Work Phone: [facility] 04-02-2022 10:52-0400 Systolic blood pressure 141 mm[Hg] Paul Twin DO Work Phone: [facility] 03-03-2021 09:50-0400 Body height 163.2 cm Mitra Saavedra MD Work Phone: [facility] 03-03-2021 09:50-0400 Body weight 90.45 kg Mitra Saavedra MD Work Phone: [facility] 03-03-2021 09:50-0400 Diastolic blood pressure 102 mm[Hg] Mitra Saavedra MD Work Phone: [facility] 03-03-2021 09:50-0400 Heart rate 60 /min Mitra Saavedra MD Work Phone: [facility] 03-03-2021 09:50-0400 SaO2% (BldA) [Mass fraction] 99 % Mitra Saavedra MD Work Phone: [facility] 03-03-2021 09:50-0400 Systolic blood pressure 150 mm[Hg] Mitra Saavedra MD Work Phone: [facility] 02-10-2021 11:24-0400 Body Temperature 97.7 [degF] [facility] 02-10-2021 11:24-0400 Body weight 89.81 kg [facility] 02-10-2021 11:24-0400 BP Diastolic 87 mm[Hg] [facility] 02-10-2021 11:24-0400 BP Systolic 128 mm[Hg] [facility] 02-10-2021 11:24-0400 Height 165.1 cm [facility] 02-10-2021 11:24-0400 Pulse (Heart Rate) 63 /min [facility] 02-10-2021 11:24-0400 Pulse Oximetry 98 % [facility] 02-10-2021 11:24-0400 Respiratory Rate 16 /[facility] 09-24-2020 10:34-0500 BP Diastolic 90 mm[Hg] [facility] 09-24-2020 10:34-0500 BP Systolic 153 mm[Hg] [facility] 09-24-2020 10:34-0500 Pulse (Heart Rate) 62 /min [facility] 09-24-2020 10:05-0500 Body Temperature 97.7 [degF] [facility] 09-24-2020 10:05-0500 Body weight 91.63 kg [facility] 09-24-2020 10:05-0500 Height 165.1 cm [facility] 09-24-2020 10:05-0500 Pulse Oximetry 98 % [facility] 09-24-2020 10:05-0500 Respiratory Rate 16 /min [facility] 07-23-2020 11:06-0400 Body Temperature 98.01 [degF] Vj Sandhu [facility] 07-23-2020 11:06-0400 Body weight 92.53 kg [facility] 07-23-2020 11:06-0400 BP Diastolic 78 mm[Hg] [facility] 07-23-2020 11:06-0400 BP Systolic 117 mm[Hg] [facility] 07-23-2020 11:06-0400 Height 165.1 cm [facility] 07-23-2020 11:06-0400 Pulse (Heart Rate) 56 /min Vj Sandhu [facility] linic 07-23-2020 11:06-0400 Pulse Oximetry 94 % [facility] 07-23-2020 11:06-0400 Respiratory Rate 16 /min [facility] 07-04-2020 11:56-0400 Body Temperature 96.91 [degF] [facility] 07-04-2020 11:56-0400 Body weight 90.72 kg Vj Sandhu [facility] 07-04-2020 11:56-0400 BP Diastolic 91 mm[Hg] Vj Sandhu [facility] 07-04-2020 11:56-0400 BP Systolic 128 mm[Hg] Vj Sandhu [facility] 07-04-2020 11:56-0400 Height 165.1 [facility] 07-04-2020 11:56-0400 Pulse (Heart Rate) 66 /min [facility]hu [facility] 07-04-2020 11:56-0400 Pulse Oximetry 98 % [facility] 07-04-2020 11:56-0400 Respiratory Rate 16 /min Vj Sandhu [facility] Encounters Encounter Date Encounter Type Care Provider Facility Start: 04-29-2025 End: 04-29-2025 Telephone encounter Mitra Saavedra MD Work Phone: [facility] Comment on above: Follow Up (After off ice appointment to discuss diet advancement) Start: 04-18-2025 End: 04-18-2025 Telephone encounter Mitra Saavedra MD Work Phone: [facility] Comment on above: Follow Up Start: 04-16-2025 End: 04-16-2025 Patient encounter procedure April Myers CONFERENCE CONCIERGE.CREW TEAM MEMBER Work Phone: [facility] Comment on above: S/P repair of paraes ophageal hernia (Primary Dx) Start: 04-16-2025 End: 04-16-2025 ambulatory APRIL MYERS Facility:[facility] Start: 04-08-2025 End: 04-08-2025 Telephone encounter Mitra Saavedra MD Work Phone: [facility] Comment on above: Hospital Follow Up Start: 04-02-2025 End: 04-04-2025 ambulatory MITRA SAAVEDRA Facility:[facility] Start: 03-26-2025 End: 03-26-2025 ambulatory MITRA SAAVEDRA Facility:[facility] Start: 03-07-2025 End: 03-07-2025 Patient encounter procedure Mitra Saavedra MD Work Phone: [facility] Comment on above: Gastroesophageal ref lux disease without esophagitis (Primary Dx); Paraesophageal hernia; Hypertension, unspecified type; Class 1 obesity with serious comorbidity and body mass index (BMI) of 31.0 to 31.9 in adult, unspecified obesity type Start: 03-07-2025 End: 03-07-2025 ambulatory MITRA SAAVEDRA Facility:[facility] Start: 02-22-2025 End: 02-22-[address] Julisa Cheung MD -Laboratory, [facility] Start: 02-22-2025 End: 02-22-[address] Julisa Cheung MD Work Phone: [facility] Work Phone: Start: 02-04-2025 End: 02-04-2025 Telephone encounter Mitra Saavedra MD Work Phone: [facility] Comment on above: Appointment Start: 02-01-2025 End: 02-01-2025 Telephone encounter Mitra Saavedra MD Work Phone: [facility] Comment on above: Appointment Start: 12-25-2024 End: 12-25-2024 Emergency department patient visit Dr. Uche Kuhn MD -Emergency Department Work Phone: Start: 12-06-2024 End: 12-06-2024 Patient encounter procedure Mitra Saavedra MD Work Phone: [facility] Comment on above: Gastroesophageal ref lux disease without esophagitis (Primary Dx); Paraesophageal hernia; Hypertension, unspecified type; Class 1 obesity with serious comorbidity and body mass index (BMI) of 30.0 to 30.9 in adult, unspecified obesity type Gastroesophageal ref lux disease without esophagitis (Primary Dx); Paraesophageal hernia; Hypertension, unspecified type; Body mass index 30.0-30.9, adult Start: 12-06-2024 End: 12-06-2024 ambulatory MITRA SAAVEDRA Facility:[facility] Start: 10-12-2024 ambulatory MITRA SAAVEDRA Facility: [facility] Start: 10-12-2024 End: 10-12-2024 Subsequent hospital visit by physician Mitra Saavedra MD Work Phone: [facility] Comment on above: Paraesophageal herni a [K44.9], Hypertension, unspecified type [I10] Gastroesophageal ref lux disease, unspecified whether esophagitis present [K21.9] Start: 09-28-2024 Preprocedural examin ation done MIKALA Peoples MD Work Phone: [facility] Work Phone: Start: 09-28-2024 [facility] Start[facility] 09-28-2024 ambulatory Steven PEOPLES Facilit y:[facility] Start: 09-28-2024 End: 09-28-2024 Subsequent hospital visit by physician Steven Peoples MD Work Phone: [facility] Comment on above: Screening for colon cancer [Z12.11] Start: 08-30-2024 ambulatory MITRA ISAACUMAN Facility: [facility] Start: 08-30-2024 End: 08-30-2024 Subsequent hospital visit by physician Gi/Gu [facility] Comment on above: Gastroesophageal ref lux disease, unspecified whether esophagitis present [K21.9] Start: 08-20-2024 End: 08-20-2024 Orders Only Steven Peoples MD Work Phone: [facility] Comment on above: Screening for colon cancer (Primary Dx) Start: 08-17-2024 End: 08-17-2024 Telephone encounter Steven Peoples MD Work Phone: [facility] Start: 08-08-2024 End: 08-08-2024 Telephone encounter Steven Peoples MD Work Phone: [facility] Start: 08-02-2024 End: 08-02-2024 Telephone encounter Mitra Saavedra MD Work Phone: [facility] Comment on above: Appointment (EGD/MAN O) Start: 08-02-2024 End: 08-02-2024 Patient encounter procedure Mitra Saavedra MD Work Phone: [facility] Comment on above: Gastroesophageal ref lux disease, unspecified whether esophagitis present (Primary Dx); Paraesophageal hernia; Hypertension, unspecified type; Screening for colon cancer; Class 1 obesity with serious comorbidity and body mass index (BMI) of 31.0 to 31.9 in adult, unspecified obesity type Start: 08-02-2024 End: 08-02-2024 ambulatory MITRA SAAVEDRA Facility:[facility] Start: 05-25-2024 Telephone encounter iMtra lea MD Work Phone: [facility] Comment on above: Appointment Start: 05-22-2024 End: 05-22-2024 Emergency department patient visit Bentley Walker Facility:[facility] Start: 05-19-2024 End: 05-19-2024 Emergency department patient visit Enrique Montenegro Facility:[facility] Start: 04-27-2024 End: 04-27-2024 ambulatory Jorge L Prasannaralston Facility:[facility] Start: 10-05-2023 End: 10-05-2023 ambulatory [facility] Work Phone: Start: 10-05-2023 End: 10-05-2023 Patient encounter procedure [facility] Start: 08-11-2023 End: 08-11-2023 Patient encounter procedure [facility] Start: 12-03-2022 End: 12-03-2022 Emergency department patient visit [facility]Emergency Department Start: 04-15-2022 End: 04-15-2022 [facility] Start: 04-02-2022 End: 04-02-2022 Patient encounter procedure Paul Murcia DO Work Phone: [facility] Comment on above: Left leg pain (Prima ry Dx) Start: 04-02-2022 End: 04-02-2022 Subsequent hospital visit by physician Xr [employer] Mortgage Advisor [employer] [place] [employer]OLUTION SPECIALIST Comment on above: Spondylolisthesis, l umbar region [M43.16] Start: 01-25-2022 End: 01-25-2022 Patient encounter procedure [facility]-Laboratory, [place] Start: 11-19-2021 End: 11-19-2021 Patient encounter procedure [facility], Specimen Start: 03-16-2021 End: 03-16-2021 Orders Only Vj Sandhu MD Work Phone: [facility] Comment on above: Spondylolisthesis of lumbar region (Primary Dx) Start: 03-03-2021 End: 03-03-2021 Orders Only Adri Kuhn MA [facility] Comment on above: Blood in stool (Prim jen Dx); Paraesophageal hernia; Gastroesophageal reflux disease, unspecified whether esophagitis present Paraesophageal herni a (Primary Dx); Gastroesophageal reflux disease, unspecified whether esophagitis present; Blood in stool; Class 1 obesity due to excess calories with serious comorbidity and body mass index (BMI) of 33.0 to 33.9 in adult; Nausea Patient Question Start: 02-10-2021 End: 02-10-2021 Patient encounter procedure Vj Sandhu Work Phone: [facility] Comment on above: Spondylolisthesis of lumbar region (Primary Dx) Start: 09-26-2020 End: 09-26-2020 Telephone encounter Johnnie López Work Phone: [facility] Comment on above: Procedure Follow Up Start: 09-25-2020 End: 09-25-2020 Telephone encounter Johnnie López Work Phone: [facility] Comment on above: Patient Question Start: 09-24-2020 End: 09-24-2020 Patient encounter procedure Johnnie López Work Phone: [facility] Comment on above: Procedure (Left L4, L5 Transforaminal VERNON) Start: 09-18-2020 End: 09-18-2020 Refill Johnnie López Work Phone: [facility] Comment on above: Refill Request Start: 08-26-2020 End: 08-26-2020 Letter encounter Johnnie López Work Phone: [facility] Start: 08-26-2020 End: 08-26-2020 Telephone encounter Magda Gomez Work Phone: [facility] Comment on above: Anticoagulation Start: 07-28-2020 End: 07-28-2020 Telephone encounter Yulisa (Marriage Counselor Artificial Foliage Arranger) Shahid Work Phone: [facility] Comment on above: Patient Question Start: 07-23-2020 End: 07-23-2020 Patient encounter procedure Vj Sandhu Work Phone: [facility] Comment on above: Spondylolisthesis of lumbar region (Primary Dx) Start: 07-04-2020 End: 07-04-2020 Patient encounter procedure Vj Sandhu Work Phone: [facility] Comment on above: Lumbar spondylosis ( Primary Dx); Obesity, Class I, BMI 30-34.9 Start: 01-21-2019 Patient encounter procedure Facility:[id number] Start: 01-21-2019 End: 01-21-2019 Emergency department patient visit [facility] Facility:[facility] Procedures Date Procedure Procedure Detail Performing Clinician Start: 10-12-2024 Esophagogastroduodenoscopy transoral diagnostic Mitra Saavedra MD Work Phone: Start: 09-28-2024 Colonoscopy Mitra Saavedra MD Work Phone: Start: 08-30-2024 Radiologic exam upr gi trc double contrast study Mitra Saavedra MD Work Phone: Start: 12-03-2022 Plain x-ray of hand Start: 04-15-2022 Plain x-ray of pelvis and lower extremity Start: 04-02-2022 Radex spine lumbosacral 2/3 views Stephen Sandhu MD Work Phone: Start: 11-15-2019 Adult depression screening assessment Vj Sandhu H/O: surgery H/O wrist surgery Plan of Treatment Date Care Activity Detail Author Start: 2036 RSV Vaccine (1 - 1-dose 75+ series) RSV Vaccine (1 - 1-dose 75+ series) [facility] Start: 01-31-2034 Urine microalbumin profile DTaP,Tdap,Td Vaccine (3 - Td or Tdap) [facility] Start: 04-04-2028 Diabetes Screening Diabetes Screening [facility] Start: 04-16-2026 zzBP Controlled (<130/80) (Retired) zzBP Controlled (<130/80) (Retired) [facility] Start: 09-28-2025 Screening for malignant neoplasm of colon [facility] Start: 08-01-2025 End: 08-01-2025 Patient encounter procedure 08/01/2025 8:00 AM EDT Office Visit [facility] [address] [place], [place] [phone] Mitra Saavedra MD [address] [facility] [address] [place], [place] [phone] HBC-3mo P/O-Rosenda revision 04/02/25-[facility] Comment on above: HBC-3mo P/O-Rosenda revision 04/02/25-Conrita bauer Start: 07-08-2025 Influenza vaccination Influenza Vaccine (Season Ended) [facility] Start: 04-17-2025 End: 04-17-2025 Patient encounter procedure 04/17/2025 9:00 AM EDT Office Visit [facility] [address] [place], [place] [phone] Mitra Saavedra MD [address] [facility] [address] [place], [place] [phone] HBC-2 Week P/O-Rosenda revision 04/02/25-[facility] Comment on above: HBC-2 Week P/O-Rosenda revision 04/02/25-Génesis whelan Start: 04-16-2025 End: 04-16-2025 Patient encounter procedure 04/16/2025 11:00 AM EDT Office Visit [facility] [address] [place] [address] April Myers, CONFERENCE CONCIERGE.CREW TEAM MEMBER [address] [place], [place] [phone] HBC-2 Week P/O-Rosenda revision 04/02/25-[facility] Comment on above: HBC-2 Week P/O-Rosenda revision 04/02/25-[facility] Start: 04-10-2025 End: 04-10-2025 Patient encounter procedure 04/10/2025 1:30 PM EDT Office Visit [facility] [address] [place], [place] [phone] Mitra Saavedra MD [address] [phone] HBC-2 Week P/O-Rosenda revision 04/02/25-[facility] Comment on above: HBC-2 Week P/O-Rosenda revision 04/02/25 [facility] Start: 04-02-2025 End: 04-02-2025 [facility] Comment on above: LAPAROSCOPIC RPR PARAESOHAGEAL HERNIA W/ FUNDOPLASTY W/ MESH--Laparoscopic, possible open, paraesophageal hernia repair with Rosenda fundoplicatio- revision rosenda takedown Start: 04-02-2025 End: 04-02-2025 Esophagogastroduodenoscopy transoral diagnostic [facility] Start: 04-02-2025 End: 04-02-2025 Laps rpr paraesphgl hrna incl fundplsty w/mesh [facility] Start: 04-02-2025 Subsequent hospital visit by physician [facility] Comment on above: Gastroesophageal reflux disease without esophagitis [K21.9], Paraesophageal hernia [K44.9], Hypertension, unspecified type [I10], Body mass index 30.0-30.9, adult [Z68.30] Start: 04-02-2025 End: 04-02-2025 Transfusion blood/blood components [facility] Start: 03-26-2025 End: 03-26-2025 ambulatory 03/26/2025 10:00 AM EDT PAT Pre Surgical Testing [address] [place], [place] [phone] 1. LAPAROSCOPIC RPR PARAESOHAGEAL HERNIA W/ FUNDOPLASTY W/ MESH--Laparoscopic, possible open, paraesophageal hernia repair with Rosenda fundoplication Pre Surgical Testing Comment on above: 1. LAPAROSCOPIC RPR PARAESOHAGEAL HERNIA W/ FUNDOPLASTY W/ MESH--Laparoscopic, possible open, paraesophageal hernia repair with Rosenda fundoplication Start: 03-07-2025 End: 06-06-2025 Basic metabolic 2000 panel - Serum or Plasma BASIC METABOLIC PANEL Lab Routine Gastroesophageal reflux disease without esophagitis Expected: 03/07/2025, Expires: 06/06/2025 [facility] Comment on above: Expected: 03/07/2025, Expires: Start: 03-07-2025 End: 06-06-2025 CBC W Auto Differential panel - Blood COMPLETE BLOOD COUNT AND DIFFERENTIAL Lab Routine Gastroesophageal reflux disease without esophagitis Expected: 03/07/2025, Expires: 06/06/2025 [facility] Work Phone: Comment on above: Expected: 03/07/2025, Expires: Start: 03-07-2025 End: 03-07-2025 Patient encounter procedure 03/07/2025 8:00 AM EDT Office Visit [facility] [address] [place] [address] Mitra Saavedra MD [address] [phone] HBC-f/u-final weight check [facility] Comment on above: HBC-f/u-final weight check Start: 12-25-2024 [facility] Start: 12-06-2024 End: 03-07-2025 Basic metabolic 2000 panel - Serum or Plasma BASIC METABOLIC PANEL Lab Routine Gastroesophageal reflux disease without esophagitis Paraesophageal hernia Expected: 12/06/2024, Expires: 03/07/2025 [facility] Comment on above: Expected: 12/06/2024, Expires: Start: 12-06-2024 End: 03-07-2025 CBC W Auto Differential panel - Blood COMPLETE BLOOD COUNT AND DIFFERENTIAL Lab Routine Gastroesophageal reflux disease without esophagitis Paraesophageal hernia Expected: 12/06/2024, Expires: 03/07/2025 [facility] Comment on above: Expected: 12/06/2024, Expires: Start: 10-25-2024 End: 10-25-2024 Patient encounter procedure 10/25/2024 10:00 AM EST Office Visit [facility] [address] [place] [address] Mitra Saavedra MD [address] [address] HBC - F/U EGD Mano, UGI [facility] Comment on above: HBC - F/U EGD Mano, UGI Start: 10-12-2024 End: 08-02-2025 EGD DIAGNOSTIC EGD DIAGNOSTIC Endoscopy Routine Gastroesophageal reflux disease, unspecified whether esophagitis present Expected: 10/12/2024, Expires: 08/02/2025 [facility] Comment on above: Expected: 10/12/2024, Expires: Start: 10-12-2024 End: 10-12-2024 Patient encounter procedure 10/12/2024 9:00 AM EST Appointment [facility] [address] [place] [address] [facility] Start: 10-12-2024 End: 10-12-2024 Admission to same day surgery center 10/12/2024 8:00 AM EST - 10/12/2024 9:00 AM EST Surgery [facility] [address] [place] [address] Mitra Saavedra MD [address] [address] ESOPHAGEAL MANOMETRY [facility] Comment on above: ESOPHAGEAL MANOMETRY Start: 10-12-2024 End: 10-12-2024 Esophageal motility study w/interp&rpt ESOPHAGEAL MANOMETRY Paraesophageal hernia Hypertension, unspecified type 10/12/2024 8:00 AM EST [facility] Start: 10-12-2024 Subsequent hospital visit by physician 10/12/2024 8:00 AM EST Hospital Encounter [facility] [address] [place] [address] Mitra Saavedra MD 1 [facility] [address] [place] [address] Paraesophageal hernia [K44.9], Hypertension, unspecified type [I10] [facility] Comment on above: Paraesophageal hernia [K44.9], Hypertens ion, unspecified type [I10] Start: 09-28-2024 End: 08-20-2025 Screening colonoscopy COLONOSCOPY SCREENING Endoscopy Routine Screening for colon cancer Expected: 09/28/2024, Expires: 08/20/2025 [facility] Work Phone: Comment on above: Expected: 09/28/2024, Expires: Start: 09-28-2024 End: 09-28-2024 Patient encounter procedure [facility] Start: 08-30-2024 End: 08-30-2024 Patient encounter procedure 08/30/2024 10:00 AM EDT Appointment [facility] [address] [place] [address] Gastroesophageal reflux disease, unspecified whether esophagitis present [K21.9] [facility] Comment on above: Gastroesophageal reflux disease, unspeci fied whether esophagitis present [K21.9] Start: 07-09-2024 Urine microalbumin profile DTaP,Tdap,Td Vaccine (2 - Td or Tdap) [facility] Start: 07-08-2024 Covid-19 Vaccine () Covid-19 Vaccine () [facility] Start: 07-08-2024 Influenza vaccination Influenza Vaccine (#1) [facility] Start: 04-07-2024 DIABETES SCREEN DIABETES SCREEN [facility] Start: 04-07-2024 Diabetes Screening Diabetes Screening [facility] Start: 03-28-2024 Shingrix Vaccine (2 of 2) Shingrix Vaccine (2 of 2) [facility] Start: 11-07-2023 Behavioral Health Screening Behavioral Health Screening [facility] Start: 07-08-2023 Covid-19 Vaccine () Covid-19 Vaccine () [facility] Start: 07-08-2022 Influenza vaccination INFLUENZA (Season Ended) [facility] Start: 2021 RSV Vaccine (1 - 1-dose 60+ series) RSV Vaccine (1 - 1-dose 60+ series) [facility] Start: 2021 RSV Vaccine (1 - Risk 60-74 years 1-dose series) RSV Vaccine (1 - Risk 60-74 years 1-dose series) [facility] Start: 07-30-2021 COVID-19 VACCINE (3 - Booster for Moderna series) COVID-19 VACCINE (3 - Booster for Moderna series) [facility] Start: 07-08-2021 Influenza vaccination INFLUENZA (Season Ended) [facility] Start: 03-16-2021 End: 03-16-2022 SARS-CoV-2 (COVID-19) RNA [Presence] in Respiratory specimen by HOWIE with probe detection PRE-PROCEDURE & PRE-OPERATIVE COVID Microbiology Routine Spondylolisthesis of lumbar region Expected: 03/16/2021, Expires: 03/16/2022 [facility] Comment on above: Expected: 03/16/2021, Expires: 2 Start: 03-03-2021 End: 03-03-2022 SARS-CoV-2 (COVID-19) RNA [Presence] in Respiratory specimen by HOWIE with probe detection [facility] Comment on above: Expected: 03/03/2021, Expires: 2 Start: 02-27-2021 COVID-19 VACCINE (2 - Moderna 2-dose series) COVID-19 VACCINE (2 - Moderna 2-dose series) [facility] Start: 11-15-2020 Adult depression screening assessment DEPRESSION SCREENING [facility] Start: 07-08-2020 Influenza vaccination INFLUENZA (#1) [facility] Start: 08-30-2018 DIABETES SCREEN DIABETES SCREEN [facility] Start: 05-25-2016 COLORECTAL CANCER SCREENING COLORECTAL CANCER SCREENING [facility] Start: 05-25-2016 FECAL OCCULT BLOOD FECAL OCCULT BLOOD [facility] Start: 05-25-2016 Screening for malignant neoplasm of colon [facility] Start: 2011 COLORECTAL CANCER SCREENING,SEE MODIFIER COLORECTAL CANCER SCREENING,SEE MODIFIER [facility] Start: 2011 Pneumococcal Vaccine: 50+ (1 of 1 - PCV) Pneumococcal Vaccine: 50+ (1 of 1 - PCV) [facility] Start: 2011 Screening for malignant neoplasm of colon [facility] Start: 2011 SHINGRIX VACCINE (1 of 2) SHINGRIX VACCINE (1 of 2) [facility] Start: 2011 Tuberculosis screening COLORECTAL CANCER SCREENING,SEE MODIFIER [facility] Start: 2006 COLOGUARD (FIT-DNA) COLOGUARD (FIT-DNA) [facility] Start: 2006 Colonoscopy COLONOSCOPY [facility] Start: [address] COLONOGRAPHY [facility] Start: 2006 Lipid panel Lipid Screening [facility] Start: 2006 LIPID SCREEN LIPID SCREEN [facility] Start: 2006 Screening for malignant neoplasm of colon [facility] Start: 2006 SIGMOIDOSCOPY SIGMOIDOSCOPY [facility] Start: 2001 Mammography MAMMOGRAM [facility] Start: 2001 Screening for malignant neoplasm of breast Mammogram Screening [facility] Start: 1991 HPV TESTING HPV TESTING [facility] Start: 1982 PAP TESTING PAP TESTING [facility] Start: 1982 Screening for malignant neoplasm of cervix Cervical Cancer Screening [facility] Start: 1980 Urine microalbumin profile DTAP,TDAP,TD (1 - Tdap) [facility] Start: 1979 ANNUAL PCP TEAM CHRONIC DISEASE VISIT ANNUAL PCP TEAM CHRONIC DISEASE VISIT [facility] Start: 1979 Anxiety Screening Anxiety Screening [facility] Start: 1979 BP CONTROLLED (<130/80) BP CONTROLLED (<130/80) [facility] Start: 1979 Depression Screening Depression Screening [facility] Start: 1979 HEPATITIS C SCREENING [facility] Start: 1979 Hepatitis C screening Hepatitis C Screening [facility] Start: 1979 HIV SCREENING HIV SCREENING [facility] Start: 1979 HIV screening HIV Screening [facility] End: 03-16-2022 aPTT in Platelet poor plasma by Coagulation assay ACTIVATED PTT Lab Routine Spondylolisthesis of lumbar region 1 Occurrences starting 03/16/2021 until 03/16/2022 [facility] Comment on above: 1 Occurrences starting 03/16/2021 until 03/16/2022 End: 03-16-2022 Basic metabolic 2000 panel - Serum or Plasma BASIC METABOLIC PNL Lab Routine Spondylolisthesis of lumbar region 1 Occurrences starting 03/16/2021 until 03/16/2022 [facility] Comment on above: 1 Occurrences starting 03/16/2021 until 03/16/2022 End: 03-16-2022 CBC panel - Blood by Automated count CBC Lab Routine Spondylolisthesis of lumbar region 1 Occurrences starting 03/16/2021 until 03/16/2022 [facility] Comment on above: 1 Occurrences starting 03/16/2021 until 03/16/2022 End: 03-03-2022 COLONOSCOPY - DIAGNOSTIC COLONOSCOPY - DIAGNOSTIC Endoscopy Routine Blood in stool 1 Occurrences starting 03/03/2021 until 03/03/2022 [facility] Comment on above: 1 Occurrences starting 03/03/2021 until 03/03/2022 End: 03-16-2022 ECG COMPLETE ECG COMPLETE ECG Routine Spondylolisthesis of lumbar region 1 Occurrences starting 03/16/2021 until 03/16/2022 [facility] Comment on above: 1 Occurrences starting 03/16/2021 until 03/16/2022 End: 12-06-2025 ECG COMPLETE ECG COMPLETE ECG Routine Gastroesophageal reflux disease without esophagitis Paraesophageal hernia 1 Occurrences starting 12/06/2024 until 12/06/2025 [facility] Work Phone: Comment on above: 1 Occurrences starting 12/06/2024 until 12/06/2025 Esophageal motility study w/interp&rpt ESOPHAGEAL MANOMETRY Paraesophageal hernia Hypertension, unspecified type [facility] End: 03-03-2022 Esophagogastroduodenoscopy transoral diagnostic EGD Endoscopy Routine Paraesophageal hernia Gastroesophageal reflux disease, unspecified whether esophagitis present 1 Occurrences starting 03/03/2021 until 03/03/2022 [facility] Comment on above: 1 Occurrences starting 03/03/2021 until 03/03/2022 End: 08-02-2025 Flexible sigmoidoscopy study COLONOSCOPY DIAGNOSTIC Endoscopy Routine Screening for colon cancer 1 Occurrences starting 08/02/2024 until 08/02/2025 [facility] Comment on above: 1 Occurrences starting 08/02/2024 until 08/02/2025 End: 04-02-2022 Gastric emptying imaging study NM GASTRIC EMPTYING SOLID Radiology Routine Nausea 1 Occurrences starting 03/03/2021 until 04/02/2022 [facility] Comment on above: 1 Occurrences starting 03/03/2021 until 04/02/2022 H&P for surgery H&P FOR SURGERY Procedures Routine Spondylolisthesis of lumbar region Ordered: 03/16/2021 [facility] Comment on above: Ordered: 03/16/2021 End: 08-02-2025 Manometry Study observation Narrative MANOMETRY ESOPHAGEAL Endoscopy Routine Paraesophageal hernia 1 Occurrences starting 08/02/2024 until 08/02/2025 [facility] Comment on above: 1 Occurrences starting 08/02/2024 until 08/02/2025 End: 2021 Mri spinal canal lumbar w/o & w/contr matrl MRI LUMBAR SPINE WO/W IVCON Radiology Routine Lumbar spondylosis 1 Occurrences starting 07/04/2020 until 2021 [facility] Comment on above: 1 Occurrences starting 07/04/2020 until 2021 Njx anes&/strd w/img tfrml edrl lmbr/sac 1 lvl INJ TRANSFORAMINAL EPID ANES/STER LS SINGL Procedures Routine Spinal stenosis of lumbar region without neurogenic claudication Ordered: 09/24/2020 [facility] Comment on above: Ordered: 09/24/2020 Njx anes&/strd w/img tfrml edrl lmbr/sac ea lv INJ TRANSFRAM EPID ANES/STER LS MULTI Procedures Routine Spinal stenosis of lumbar region without neurogenic claudication Ordered: 09/24/2020 [facility] Comment on above: Ordered: 09/24/2020 Patient Education [facility] Work Phone: Patient referral [facility] Work Phone: End: 03-16-2022 PT panel - Platelet poor plasma by Coagulation assay PROTHROMBIN TIME/PT Lab Routine Spondylolisthesis of lumbar region 1 Occurrences starting 03/16/2021 until 03/16/2022 [facility] Comment on above: 1 Occurrences starting 03/16/2021 until 03/16/2022 End: 09-01-2025 RF Gastrointestinal tract upper Views W air contrast PO and W barium contrast PO XR UPPER GI ROUTINE DOUBLE CONTRAST/AIR Radiology Routine Gastroesophageal reflux disease, unspecified whether esophagitis present 1 Occurrences starting 08/02/2024 until 09/01/2025 [facility] Work Phone: Comment on above: 1 Occurrences starting 08/02/2024 until 09/01/2025 SURGICAL PATHOLOGY [facility] Work Phone: Comment on above: Release Upon Ordering for 1 Occurrences starting 10/12/2024, 1 completed End: 03-16-2022 TYPE AND SCREEN,30 DAY TYPE AND SCREEN,30 DAY Blood Bank Routine Spondylolisthesis of lumbar region 1 Occurrences starting 03/16/2021 until 03/16/2022 [facility] Comment on above: 1 Occurrences starting 03/16/2021 until 03/16/2022 [facility] Immunizations Immunization Date Immunization Notes Care Provider Fa cili 08-07-2022 influenza virus vacc ine, unspecified formulation Mitra Saavedra MD Work Phone: [facility] 08-25-2016 influenza virus vacc ine, unspecified formulation Mitra Saavedra MD Work Phone: [facility] Payers Date Payer Category Payer Self-pay [id number] 2021 [facility] PPO [id number] 2020 Unknown [id number] 2019 Unknown 2017 Unknown [id number] 2016 Unknown [id number] 1960 Unknown [id number] 1960 Unknown [id number] Self-pay [employer] INSURANCE [id number] Unknown [id number] Unknown [id number] Unknown [id number] Unknown [id number] Unknown [id number] Unknown [id number] Unknown [id number] Social History Date Type Detail Facility Start: 07-23-2020 End: 08-02-2024 Tobacco smoking status PRIS Former smoker [facility] Start: 07-23-2020 End: 08-02-2024 Tobacco use and exposure Never used [facility] Start: 07-23-2020 End: 03-07-2025 Alcohol intake Current drinker of alcohol (finding) [facility] Start: 1960 Sex Assigned At Not on file C [facility] Start: 03-23-2022 End: 04-02-2022 Exposure to SARS-CoV-2 (event) Not sure [facility] Start: 05-14-2002 End: 11-12-2008 History of tobacco use Current smoker [facility] Start: 07-24-2021 End: 12-03-2022 Tobacco smoking status [facility] Unknown if ever smoked [facility] Start: 1960 Sex Assigned At Female [facility] Start: 05-14-2002 End: 11-12-2008 History of tobacco use Cigarette Smoker [facility] Start: 04-02-2022 End: 02-07-2024 Alcohol intake [facility] Start: 04-07-2021 History SDOH Alcohol Comment socially-once weekly [facility] Start: 04-24-2021 End: 08-02-2024 Tobacco Comment 1 pack per week [facility] Start: 04-02-2022 End: 02-07-2024 Tobacco use panel [facility] Adult Depression Screening Assessment 0 [facility] Start: 12-25-2024 Tobacco smoking stat us NHIS Never smoked tobacco (finding) [facility] Start: 02-27-2025 Sex Female (finding) [facility] Start: 04-02-2025 End: 04-16-2025 Alcoholic beverage intake Ex-drinker (finding) [facility] Has the [employer], [employer], or water [employer] threatened to shut off services in your home in past 12Mo No [facility] (I/We) worried keerthi (my/our) food would run out before (I/we) got money to buy more. Never true [facility] Medical Equipment Procedure Code Equipment Code Equipment Origin al Text Equipment Identifier Dates Substitute Maste rgraft Calcium Phosphate Collagen Bone Graft Putty Void - [id number] Start: 05-07-2021 Dane Viper 2 Lord otic Titanium 40mm Spinal Mis [id number] Start: 05-07-2021 Dane Viper 2 Prelordotic Titanium 35mm Spinal Mis [id number] Start: 05-07-2021 Dev Bul Par 9x12 x23 - [id number] Start: 05-07-2021 Set Titanium Scr ew 1 Inner Mis Spine [id number] Start: 05-07-2021 Viper Prime Cfx Fen X-Tab Polyaxial Screw 5.5mm X 6mm X 55mm [id number] Start: 05-07-2021 Viper Prime Cfx Fen X-Tab Polyaxial Screw 5.5mm X 6mm X 45mm [id number] Start: 05-07-2021 Mesh Bio-A Synth etic 10x7cm Surgical Reinforcement Hernia Repair - [id number] Start: 04-02-2025 Functional Status Date Assessment Result Facility 04-04-2025 Are you deaf, or do you have serious difficulty hearing No 04/04/2025 4:06 PM Gregory Ponce RN No [facility] 04-04-2025 Are you blind, or do you have serious difficulty seeing, even when wearing glasses No 04/04/2025 4:06 PM Gregory Ponce, GARO No [facility] 04-04-2025 Do you have serious difficulty walking or climbing stairs No 04/04/2025 4:06 PM Gregory Ponce RN No [facility] 04-04-2025 Do you have difficul ty dressing or bathing No 04/04/2025 4:06 PM Gregory Ponce, GARO No [facility] 04-04-2025 Because of a physica l, mental, or emotional condition, do you have difficulty doing errands alone such as visiting a physician's office or shopping No 04/04/2025 4:06 PM Gregory Ponce RN No [facility] 05-09-2021 Are you deaf, or do you have serious difficulty hearing No 05/09/2021 11:40 AM Candis Javier RN No [facility] 05-09-2021 Are you blind, or do you have serious difficulty seeing, even when wearing glasses No 05/09/2021 11:40 AM Candis Javier RN No [facility] 05-09-2021 Do you have serious difficulty walking or climbing stairs No 05/09/2021 11:40 AM Candis Javier RN No [facility] 05-09-2021 Do you have difficul ty dressing or bathing No 05/09/2021 11:40 AM Candis Javier RN No [facility] 05-09-2021 Because of a physica l, mental, or emotional condition, do you have difficulty doing errands alone such as visiting a physician's office or shopping No 05/09/2021 11:40 AM Candis Javier, GARO No [facility] Mental Status Date Assessment Result Facility 04-04-2025 Because of a physica l, mental, or emotional condition, do you have serious difficulty concentrating, remembering, or making decisions No 04/04/2025 4:06 PM EDT Gregory Pratt, GARO No [facility] 05-09-2021 Because of a physica l, mental, or emotional condition, do you have serious difficulty concentrating, remembering, or making decisions No 05/09/2021 11:40 AM EDT Candis Briscoe RN No [facility] Clinical Notes 03-03-2021 to 04-29-2025 Telephone Encounter - Steven Jurado RN - 04/29/2025 3:14 PM EDTTelephone Encounter - Steven Jurado RN - 04/29/2025 3:14 PM EDTTelephone Encounter - Steven Jurado RN - 04/29/2025 1:15 PM EDT Note Date & Type Note Facility 04-29-2025 Telephone encounter Note Patient returned my call. She is four weeks s/p lap re-do Rosenda & PEHR procedure on 04/02/25: Swallowing: patient currently not having any difficulty swallowing. Patient states she did get Jell-O stuck 2 weeks ago, but nothing since. Patient tried falguni dora the other day and I did not feel good after that. I reminded patient she is only 4 weeks after a revision surgery and carbonated beverages are not on her diet for another 4 weeks. 24 hour diet recall: Breakfast: Ensure Max, soft egg Lunch: yogurt Dinner: 1/2 ear corn on cob, chicken, 1/2 baked potato We discussed eating smaller more, frequent meals and following the diet since she had revision surgery. I reminded her that chicken, corn and falguni dora are not on her meal plan for another 4 weeks. Patient states she does not have much of an appetite, and you can only have so many shakes. Voiding/color of urine: reports urine is light in color Moving bowels: daily bowel movements for the last 2-3 weeks. Pain rating/use of medications: last taken 2 weeks ago Proton pump inhibitor: patient took herself off the week after surgery, because I am not having any heartburn. Using incentive spirometer: Patient with moist, frequent cough during our call. Patient's granddaughter her pneumonia and now the other grandkids and her daughter are coughing too. I instructed the patient to call her PCP if the cough does not improve in the next 2 days. Patient states she is using the incentive spirometer and can get it to 3,000 ml. Physical activity: walking around the house and neighborhood. OK'd patient to ride a stationary bike Follow up appt confirmation: 08/01/[address] Saavedra Patient is scheduled to RTW on 05/20/25. 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 I don't lift anything >25 lbs. Patient is not sure about when to RTW since they do not have light duty. I suggested we wait a couple of weeks and asked Francia to call me the week before 05/20 and let me know how she is doing. Patient agreed with the plan. Patient has my contact information if she has any questions or concerns before their next appointment. Patient thanked me for letting her know that her phone isn't ringing and going straight to [employer]. Steven Jurado RN [facility] 04-29-2025 Miscellaneous Notes Patient returned my call. She is four weeks s/p lap re-do Rosenda & PEHR procedure on 04/02/25: Swallowing: patient currently not having any difficulty swallowing. Patient states she did get Jell-O stuck 2 weeks ago, but nothing since. Patient tried falguni dora the other day and I did not feel good after that. I reminded patient she is only 4 weeks after a revision surgery and carbonated beverages are not on her diet for another 4 weeks. 24 hour diet recall: Breakfast: Ensure Max, soft egg Lunch: yogurt Dinner: 1/2 ear corn on cob, chicken, 1/2 baked potato We discussed eating smaller more, frequent meals and following the diet since she had revision surgery. I reminded her that chicken, corn and falguni dora are not on her meal plan for another 4 weeks. Patient states she does not have much of an appetite, and you can only have so many shakes. Voiding/color of urine: reports urine is light in color Moving bowels: daily bowel movements for the last 2-3 weeks. Pain rating/use of medications: last taken 2 weeks ago Proton pump inhibitor: patient took herself off the week after surgery, because I am not having any heartburn. Using incentive spirometer: Patient with moist, frequent cough during our call. Patient's granddaughter her pneumonia and now the other grandkids and her daughter are coughing too. I instructed the patient to call her PCP if the cough does not improve in the next 2 days. Patient states she is using the incentive spirometer and can get it to 3,000 ml. Physical activity: walking around the house and neighborhood. OK'd patient to ride a stationary bike Follow up appt confirmation: 08/01/[address] Saavedra Patient is scheduled to RTW on 05/20/25. 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 I don't lift anything >25 lbs. Patient is not sure about when to RTW since they do not have light duty. I suggested we wait a couple of weeks and asked Francia to call me the week before 05/20 and let me know how she is doing. Patient agreed with the plan. Patient has my contact information if she has any questions or concerns before their next appointment. Patient thanked me for letting her know that her phone isn't ringing and going straight to voicemail. Steven Jurado RN This is my 3rd call/message to patient to discuss diet advancement s/p re-do Rosenda procedure. I also sent patient a MyChart message asking for a return call. Steven Jurado RN documented in this encounter [facility] 04-29-2025 Telephone encounter Note This is my 3rd call/message to patient to discuss diet advancement s/p re-do Rosenda procedure. I also sent patient a MyChart message asking for a return call. Steven Jurado RN [facility] 04-18-2025 Telephone encounter Note I called patient yesterday and again today and left messages asking for a return call so I can review patient's diet advancement with her. I left my contact information. Steven Jurado RN [facility] 04-18-2025 Miscellaneous Notes I called patient yesterday and again today and left messages asking for a return call so I can review patient's diet advancement with her. I left my contact information. Steven Jurado RN documented in this encounter [facility] 04-16-2025 Instructions April Myers APRN.MARGARET - 04/16/2025 11:04 AM EDT documented in this encounter [facility] 04-16-2025 Note HNO ID: [id number] Author: APRIL MYERS APRN.CNP Service: ? Author Type: Nurse Practitioner Type: Progress Notes Filed: 04/16/2025 11:20 Note Text: GENERAL SURGERY CLINIC FOLLOW UP NOTE Name: Francia Gama Index Surgery Date of Surgery: 04/02/2025 Surgeon: Dr. Saavedra Surgical Procedure: 1.- Laparoscopic repair of RECURRENT paraesophageal hernia - 22 modifier due to surgery being reoperative/revision with great amount of scar tissue and take down of previous Rosenda fundoplication 2.- Laparoscopic Rosenda fundoplication with mesh placement 3.- EGD Fever/Chills: Denies Abdominal Pain: Denies Increased Heart Rate: Denies Bloating/Hiccups: Denies Decreased Urine Output: Denies Nausea/Vomiting: Denies Diarrhea: Denies Constipation: Denies; taking miralax, having soft brown BMs Reflux/Regurgitation: Denies Dysphagia: Had one episode after eating jello, otherwise denies Taking medications without difficulty. She is eating and drinking without difficulty. HISTORY REVIEWED (electronic chart updated): - medical history - medications - allergies Current Outpatient Medications Medication Sig pantoprazole DR (PROTONIX) 40 mg tablet Take 1 tablet by mouth once daily. ondansetron (ZOFRAN) 4 mg tablet Take 1 tablet by mouth every 6 hours as needed. fexofenadine (BETTY) 180 mg tablet Take 1 tablet by mouth once daily. losartan-hydroCHLOROthiazide (HYZAAR) 100-12.5 mg per tablet Take 1 tablet by mouth once daily. Omeprazole Magnesium (PRILOSEC OTC) 20 mg tablet Take 20 mg by mouth once daily. amLODIPine (NORVASC) 10 mg tablet Take 1 tablet by mouth once daily. DULoxetine (CYMBALTA) 30 mg capsule Take 1 capsule by mouth every afternoon. buPROPion XL (WELLBUTRIN XL) 300 mg 24 hr tablet Take 300 mg by mouth once daily. Cholecalciferol, Vitamin D3, 50 mcg (2,000 unit) cap Take 1 capsule by mouth once daily. fluticasone (FLONASE) 50 mcg/actuation nasal spray Use 2 (TWO) sprays IN EACH NOSTRIL DAILY DIRECTED Gatorade Sports Drink Use as directed for Miralax / Gatorade Bowel Prep Kit No current facility-administered medications for this visit. REVIEW OF SYSTEMS: Review of Systems Constitutional: Negative for chills, fever and malaise/fatigue. Eyes: Negative for blurred vision. Respiratory: Negative for shortness of breath. Cardiovascular: Negative for chest pain, palpitations and leg swelling. Gastrointestinal: Negative for abdominal pain, blood in stool, constipation, diarrhea, heartburn, melena, nausea and vomiting. Skin: Negative for rash. Neurological: Negative for dizziness and weakness. Psychiatric/Behavioral: Negative. PHYSICAL EXAM: BP 124/70 (BP Site: Left Arm, BP Position: Sitting, BP Cuff Size: Large Adult) Pulse 72 Ht 165.1 cm (5' 5) Wt 78.8 kg (173 lb 12.8 oz) BMI 28.92 kg/m? Physical Exam Constitutional: General: She is not in acute distress. Appearance: Normal appearance. She is not ill-appearing. HENT: Head: Normocephalic. Nose: Nose normal. Mouth/Throat: Mouth: Mucous membranes are moist. Cardiovascular: Rate and Rhythm: Normal rate. Pulmonary: Effort: Pulmonary effort is normal. No respiratory distress. Abdominal: General: Abdomen is flat. There is no distension. Palpations: Abdomen is soft. There is no mass. Musculoskeletal: General: No swelling. Normal range of motion. Cervical back: Normal range of motion. Skin: General: Skin is warm and dry. Coloration: Skin is not jaundiced. Comments: Surgical incisions c/d/i Neurological: General: No focal deficit present. Mental Status: She is alert and oriented to person, place, and time. Mental status is at baseline. Psychiatric: Mood and Affect: Mood normal. Behavior: Behavior normal. Thought Content: Thought content normal. Judgment: Judgment normal. ASSESSMENT AND PLAN: ASSESSMENT/PLAN: 1. S/P repair of paraesophageal hernia - ICD9: V45.89, ICD10: Z98.890, Z87.19 - doing very well with no issues. She has already stopped taking protonix. Reminded her to not lift over 15 lb for another 6 weeks. - follow up with surgeon in 3 months April Myers APRN.[facility] 04-16-2025 History of Presen t illness Narrative GENERAL SURGERY CLINIC FOLLOW UP NOTE Name: Francia Gama Index Surgery Date of Surgery: 04/02/2025 Surgeon: Dr. Saavedra Surgical Procedure: 1.- Laparoscopic repair of RECURRENT paraesophageal hernia - 22 modifier due to surgery being reoperative/revision with great amount of scar tissue and take down of previous Rosenda fundoplication 2.- Laparoscopic Rosenda fundoplication with mesh placement 3.- EGD Fever/Chills: Denies Abdominal Pain: Denies Increased Heart Rate: Denies Bloating/Hiccups: Denies Decreased Urine Output: Denies Nausea/Vomiting: Denies Diarrhea: Denies Constipation: Denies; taking miralax, having soft brown BMs Reflux/Regurgitation: Denies Dysphagia: Had one episode after eating jello, otherwise denies Taking medications without difficulty. She is eating and drinking without difficulty. HISTORY REVIEWED (electronic chart updated): - medical history - medications - allergies Current Outpatient Medications Medication Sig pantoprazole DR (PROTONIX) 40 mg tablet Take 1 tablet by mouth once daily. ondansetron (ZOFRAN) 4 mg tablet Take 1 tablet by mouth every 6 hours as needed. fexofenadine (BETTY) 180 mg tablet Take 1 tablet by mouth once daily. losartan-hydroCHLOROthiazide (HYZAAR) 100-12.5 mg per tablet Take 1 tablet by mouth once daily. Omeprazole Magnesium (PRILOSEC OTC) 20 mg tablet Take 20 mg by mouth once daily. amLODIPine (NORVASC) 10 mg tablet Take 1 tablet by mouth once daily. DULoxetine (CYMBALTA) 30 mg capsule Take 1 capsule by mouth every afternoon. buPROPion XL (WELLBUTRIN XL) 300 mg 24 hr tablet Take 300 mg by mouth once daily. Cholecalciferol, Vitamin D3, 50 mcg (2,000 unit) cap Take 1 capsule by mouth once daily. fluticasone (FLONASE) 50 mcg/actuation nasal spray Use 2 (TWO) sprays IN EACH NOSTRIL DAILY DIRECTED Gatorade Sports Drink Use as directed for Miralax / Gatorade Bowel Prep Kit No current facility-administered medications for this visit. REVIEW OF SYSTEMS: Review of Systems Constitutional: Negative for chills, fever and malaise/fatigue. Eyes: Negative for blurred vision. Respiratory: Negative for shortness of breath. Cardiovascular: Negative for chest pain, palpitations and leg swelling. Gastrointestinal: Negative for abdominal pain, blood in stool, constipation, diarrhea, heartburn, melena, nausea and vomiting. Skin: Negative for rash. Neurological: Negative for dizziness and weakness. Psychiatric/Behavioral: Negative. PHYSICAL EXAM: BP 124/70 (BP Site: Left Arm, BP Position: Sitting, BP Cuff Size: Large Adult) Pulse 72 Ht 165.1 cm (5' 5) Wt 78.8 kg (173 lb 12.8 oz) BMI 28.92 kg/m Physical Exam Constitutional: General: She is not in acute distress. Appearance: Normal appearance. She is not ill-appearing. HENT: Head: Normocephalic. Nose: Nose normal. Mouth/Throat: Mouth: Mucous membranes are moist. Cardiovascular: Rate and Rhythm: Normal rate. Pulmonary: Effort: Pulmonary effort is normal. No respiratory distress. Abdominal: General: Abdomen is flat. There is no distension. Palpations: Abdomen is soft. There is no mass. Musculoskeletal: General: No swelling. Normal range of motion. Cervical back: Normal range of motion. Skin: General: Skin is warm and dry. Coloration: Skin is not jaundiced. Comments: Surgical incisions c/d/i Neurological: General: No focal deficit present. Mental Status: She is alert and oriented to person, place, and time. Mental status is at baseline. Psychiatric: Mood and Affect: Mood normal. Behavior: Behavior normal. Thought Content: Thought content normal. Judgment: Judgment normal. ASSESSMENT AND PLAN: ASSESSMENT/PLAN: 1. S/P repair of paraesophageal hernia - ICD9: V45.89, ICD10: Z98.890, Z87.19 - doing very well with no issues. She has already stopped taking protonix. Reminded her to not lift over 15 lb for another 6 weeks. - follow up with surgeon in 3 months Aprli Myers APRN.[employer]W TEAM MEMBER documented in this encounter [facility] 04-08-2025 Telephone encounter Note Patient's daughter called me back and handed the phone to her mother, Francia. Patient was discharged home after redo-Rosenda procedure on 04/02/25: Swallowing: denies any difficulty swallowing liquids, soft foods and pills. Patient has had 1 protein drink, 51 oz of water, pudding and Jell-O today Voiding/color of urine: patient reports her urine is light in color Passing flatus: yes Moving bowels: Patient still has not moved bowels since surgery. Patient reports her abdomen is soft and slightly distended. She is not uncomfortable. Patient has taken Miralax daily for the last 3 days and today she took 2 Tbsp of MOM. I instructed patient to use a Dulcolax suppository or Fleets enema she does not have any results by tomorrow morning. Patient agreed. Inspection of incisions: Patient states incisions are intact, without redness or drainage. Patient states the RUQ incision is the most sore. Using incentive spirometer: Patient reports getting incentive spirometer up to 2,500 ml today. I congratulated her and encouraged her to keep using the incentive spirometer for another week. Physical activity: Walking outside a few times/day. Follow up appt confirmation: 04/16/25 I encouraged patient to call with any questions or concerns before his follow up appointment. Patient thanked me for the call. Steven Jurado RN [facility] 04-08-2025 Miscellaneous Notes Patient's daughter called me back and handed the phone to her mother, Francia. Patient was discharged home after redo-Rosenda procedure on 04/02/25: Swallowing: denies any difficulty swallowing liquids, soft foods and pills. Patient has had 1 protein drink, 51 oz of water, pudding and Jell-O today Voiding/color of urine: patient reports her urine is light in color Passing flatus: yes Moving bowels: Patient still has not moved bowels since surgery. Patient reports her abdomen is soft and slightly distended. She is not uncomfortable. Patient has taken Miralax daily for the last 3 days and today she took 2 Tbsp of MOM. I instructed patient to use a Dulcolax suppository or Fleets enema she does not have any results by tomorrow morning. Patient agreed. Inspection of incisions: Patient states incisions are intact, without redness or drainage. Patient states the RUQ incision is the most sore. Using incentive spirometer: Patient reports getting incentive spirometer up to 2,500 ml today. I congratulated her and encouraged her to keep using the incentive spirometer for another week. Physical activity: Walking outside a few times/day. Follow up appt confirmation: 04/16/25 I encouraged patient to call with any questions or concerns before his follow up appointment. Patient thanked me for the call. Steven Jurado RN I called patient on Thursday 04/05 and again today. I left a message asking for a return call with my contact information. I also left a message with patient's daughter, Maria L. Both voicemail's were full of static and hard to understand. Steven Jurado RN documented in this encounter [facility] 04-08-2025 Telephone encounter Note I called patient on Thursday 04/05 and again today. I left a message asking for a return call with my contact information. I also left a message with patient's daughter, Maria L. Both voicemail's were full of static and hard to understand. Steven Jurado RN [facility] 04-04-2025 Note HNO ID: [id number] Author: MITRA SAAVEDRA MD Service: General Surgery Author Type: Resident Type: Progress Notes Filed: 04/04/2025 18:41 Note Text: Attestation signed by Mitra Saavedra MD at 04/04/2025 6:41 PM I saw and evaluated/examined the patient with the resident and personally participated in the benton components. I have reviewed the resident's note and discussed the case and management of the patient's care with the resident. I agree with the above assessment and plan unless otherwise noted below. Plan of care discussed with: Provider, RN, Patient. - Pt doing well. Tolerating oral intake. Has been weaned off of oxygen. Okay for dc home Elective General Surgery (Green Surgery) Progress Note SERVICE DATE: April 04, 2025 Elective General Surgery (Green Surgery) Service Pager: For questions or concerns Mon-Fri 6a-5p please page [phone]. After 5pm and on Weekends and Holidays, please page [phone]. SUBJECTIVE: Patient doing well this morning. She remains on 1L NC. She states she tolerated her anti-reflux CLD yesterday without nausea or vomiting. States her chest pain has resolved. Tolerating diet DIET LIQUID Nausea No Emesis No Flatus Yes Bowel movement No Pain Controlled No Ambulating No OBJECTIVE: Vitals: Temp (24hrs), Av.9 ?C (98.4 ?F), Min:36.7 ?C (98.1 ?F), Max:36.9 ?C (98.5 ?F) BP 154/101 Pulse 69 Temp 36.7 ?C (98.1 ?F) (Oral) Resp 18 Ht 165.1 cm (5' 5) Wt 84.7 kg (186 lb 11.7 oz) SpO2 94% BMI 31.07 kg/m? O2 Therapy: Nasal Cannula IANDO: Date 04/03/25 07 - 04/04/25 0659 04/04/25 07 - 04/05/25 0659 Shift 5016-4367 3368-4981 0010-4503 24 Hour Total 3901-9847 9922-4239 1346-5030 24 Hour Total INTAKE PO 950 057 9348 PO 505 312 5760 Shift Total 824 039 8101 OUTPUT Urine Urine Not Saved. 1 x 5 x 2 x 8 x Shift Total Weight (kg) 84 84 84.7 84.7 84.7 84.7 84.7 84.7 MEDICATIONS: Current Facility-Administered Medications Medication Dose Route Frequency NaCl 0.9% iv flush bag 20 mL INTRAVENOUS PRN potassium chloride iv piggyback 20 mEq/100 mL 20 mEq INTRAVENOUS q 2 H mometasone 220 mcg/ actuation (14) 1 puff inhaler (ASMANEX) 1 puff INHALATION BID PRN amLODIPine 10 mg tab(s) (NORVASC) 10 mg ORAL DAILY pantoprazole DR 20 mg tab(s) (PROTONIX) 20 mg ORAL DAILY buPROPion XL 300 mg tab(s) (WELLBUTRIN XL) 300 mg ORAL DAILY DULoxetine 30 mg cap(s) (CYMBALTA) 30 mg ORAL DAILY enoxaparin 40 mg injection (LOVENOX) 40 mg SUBCUTANEOUS q 24 HR acetaminophen 650 mg tab(s) (TYLENOL) 650 mg ORAL q 6 H traMADol 50 mg tab(s) (ULTRAM) 50 mg ORAL q 6 H PRN ondansetron 4 mg tab(s) (ZOFRAN) 4 mg ORAL q 6 H PRN Or ondansetron (PF) 4 mg injection (ZOFRAN) 4 mg INTRAVENOUS q 6 H PRN losartan 100 mg tab(s) (COZAAR) 100 mg ORAL DAILY And hydroCHLOROthiazide 12.5 mg tab(s) 12.5 mg ORAL DAILY Labs: Recent Labs 04/04/25 0309 04/03/25 0244 NA 137 138 K 3.4* 3.2* CHLOR 100 101 CO2 26 25 BUN 9 9 CREAT 0.64 0.60 GLUC 88 103* ANION 11 12 CA 9.0 8.6 WBC 7.62 9.27 HB 12.2 12.2 HCT 37.2 38.1 PLT 231 221 Physical Exam: GENERAL: resting comfortably, in no acute distress HEENT: normocephalic, atraumatic, EOMI NECK: trachea midline, no JVD LUNGS: Unlabored breathing, equal chest rise bilaterally CARDIAC: Regular rate, warm extremities, good perfusion throughout ABDOMEN: Soft, ttp around incisions, non-distended. No rebound or guarding. Incisions covered with band aids, no strikethrough. EXTREMITIES: REEDER, No deformities, No edema SKIN: Skin color, texture, turgor normal, No rashes or lesions NEURO: AANDO, no gross motor or sensory deficits PSYCH: normal mood and affect ASSESSMENT AND PLAN: Assessment Active Hospital Problems Diagnosis Date Noted Paraesophageal hernia 08/12/2021 Assessment: 64 year old female with PMHx of HTN, HLD, GERD, LE DVT 06/26 (no AC). Patient had Redo Paraesophageal hernia repair with Rosenda fundoplication on 04/[address] Saavedra. Hospital Course/Operations/Procedures: 04/02/2025 Procedure(s): LAPAROSCOPIC RPR PARAESOHAGEAL HERNIA W/ FUNDOPLASTY W/ MESH--Laparoscopic, possible open, paraesophageal hernia repair with Rosenda fundoplicatio- revision rosenda takedown Plan: Redo Paraesophageal hernia repair wityh Rosenda takedown and redo 04/02 - UGI 04/03- negative for leak - Diet: DIET LIQUID- anti reflux FLD, with powerade and ensure max - Will monitor for tolerance of diet - Remains on 1L NC Will attempt to wean today - Hypokalemia- replaced this morning - Nausea and pain PRN Tentative plan for discharge home today with zofran and tramadol if able to wean O2 and tolerating FLD Discussed with attending: Dr. Saavedra SIGNATURE: Cyndi Nunez DO PATIENT NAME: Francia Gama DATE: April 04, 2025 TIME (more content not included)... [facility] 04-03-2025 Note HNO ID: [id number] Author: ARLETTE BRANCH RN Service: Care Management Author Type: Registered Nurse Type: Care Mgt Initial Assessment Filed: 04/03/2025 12:01 Note Text: CARE MANAGEMENT: ASSESSMENT AND DISCHARGE PLAN SERVICE DATE: April 03, 2025 SERVICE TIME: 12:00 PM PCP: Julisa Cheung MD Primary Contact: Extended Emergency Contact Information Primary Emergency Contact: MARIA L GAMA Mobile Relation: Daughter Admission Status: Inpatient Insurance Provider: [employer] P[employer] Discharge Planning requested by: Per Department Practice Potential Transition Plans Home Advance Directives Current Advance Directive: None 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 Attempted to Assist with AD Completion: Yes Action: Education Provided Current Living Arrangements and Support Lives with: Family members Type of Residence: Private Residence (House) Support: Family members How do you manage to accomplish the following: Independent: Ambulation, Bathe/Shower, Dress, Meals/Meal Prep, Going to the bathroom, Medication Management, Transportation to appointments/community Current Services/Equipment Current Post-Acute Service(s): None Discharge Planning Patient Goal(s): Less pain, General wellness, Be able to go home [place] of [place] Explained: [place] Given: No Reason Not Given: No placements necessary Are you interested in bedside delivery of your medications? No Discharge Planning Participant(s): Patient Patient/Family Comments: Caregiver Assessment: Caregiver is ready, willing and able to meet the patient's needs as recommended by the inter-professional team: No Caregiver needed Transport at Discharge: Transportation Arrangements: Car Needs Prior to Discharge: Needs Prior to Discharge: To Be Determined Post-Acute Discharge Plan: Patient is a 64 year old female with PMHx of HTN, HLD, GERD, LE DVT 06/26 (no AC). Patient had Redo Paraesophageal hernia repair with Rosenda fundoplication on 04/[address] Saavedra. Patient lives with her daughter and grandkids. She does not use DME and she is independent with ADLs. At this time she does not have any anticipated dc needs and her family can transport her home at dc. CM will continue to follow. SIGNATURE: Arlette Branch RN PATIENT NAME: Francia Gama DATE: April 03, 2025 TIME: 12:00 PM [facility] 04-03-2025 Note HNO ID: [id number] Author: ORTIZ MCMULLEN DO Service: General Surgery Author Type: Resident Type: Plan of Care Filed: 04/03/2025 11:38 Note Text: Plan of care Paged by nursing because patient had new sensation of chest pain. EKG and troponin ordered. Trop ildly elevated at [address] and T wave changes and appears similar to last EKG. Patient assessed at bedside. Complaining of sharp chest pressure at midsternum that radiates to her back, says it feels like a gas bubble. Thomas any Nausea or emesis. Improvement in abdominal pain from today AM. Patient ambulating on RA when seen. Denies any SOB or dyspnea. Pain is not pleuritic in nature. Not worsened by inhalation. Physical exam: BP: 147/87 Temp: 36.8 ?C (98.2 ?F) Temp src: Oral Pulse: 67 Resp: 18 O2 Therapy: Room Air SpO2: 92 % Neuro: Alert and oriented Resp: BL equal chest rise, No accessory muscle use. On RA when seen. Cards: HR and BP wnl ABD: Soft, ttp around incision, non-distended. Incision appear c/d/I Repeat trop ordered for 12. Will follow. Informed patient to let nurse know if pain worsens, she was increased SOB, or any other concerning signs. Will continue to monitor. Ortiz Mcmullen DO PGY-2 April 03, 2025 11:37 AM [facility] 04-03-2025 Note HNO ID: [id number] Author: MITRA SAAVEDRA MD Service: General Surgery Author Type: Resident Type: Progress Notes Filed: 04/03/2025 13:07 Note Text: Attestation signed by Mitra Saavedra MD at 04/03/2025 1:07 PM I saw and evaluated/examined the patient with the resident and personally participated in the benton components. I have reviewed the resident's note and discussed the case and management of the patient's care with the resident. I agree with the above assessment and plan unless otherwise noted below. Plan of care discussed with: Provider, RN, Patient. - UGI negative for leak. Tolerating oral intake with very mild dysphagia/chest discomfort. Will keep one more night in hospital as she is intermittently requiring oxygen via NC - currently off. - If stable in AM, will d/c home with PRN zofran and Tramadol for nausea and pain control [facility] (Green Surgery) Progress Note SERVICE DATE: April 03, 2025 Elect[facility] General Surgery (Green Surgery) Service Pager: For questions or concerns Mon-Fri 6a-5p please page [phone]. After 5pm and on Weekends and Holidays, please page [phone]. SUBJECTIVE: Patient seen in the AM. NAOE. VSS. Still having abodminal pain imporved from yesterday. Still on 3L NC. Thomas any Nausea or emesis.Plan for UGI study today AM. Tolerating diet DIET NPO Nausea No Emesis No Flatus Yes Bowel movement No Pain Controlled No Ambulating No OBJECTIVE: Vitals: Temp (24hrs), Av.8 ?C (98.2 ?F), Min:36.5 ?C (97.7 ?F), Max:37 ?C (98.6 ?F) BP 147/87 Pulse 67 Temp 36.8 ?C (98.2 ?F) (Oral) Resp 18 SpO2 92% O2 Therapy: Room Air IANDO: Date 04/02/25 07 - 04/03/25 0659 04/03/25 07 - 04/04/25 0659 Shift 8308-1903 2502-3980 6043-6403 24 Hour Total 6228-6420 1887-8753 5896-3555 24 Hour Total INTAKE IV 2300 2300 IV Volume (ml) 300 300 Volume (mL) (lactated ringers iv infusion) 1000 1000 Volume (mL) (NaCl 0.9% iv infusion) 1000 1000 Shift Total 2300 2300 OUTPUT Urine 260 260 OR Urine Output 260 260 Urine Not Saved. 2 x 4 x 6 x Blood 15 15 Estimated Blood loss 15 15 Shift Total 275 275 Weight (kg) MEDICATIONS: Current Facility-Administered Medications Medication Dose Route Frequency potassium chloride ER 40 mEq tab(s) (KLOR-CON) 40 mEq ORAL BID amLODIPine 10 mg tab(s) (NORVASC) 10 mg ORAL DAILY pantoprazole DR 20 mg tab(s) (PROTONIX) 20 mg ORAL DAILY buPROPion XL 300 mg tab(s) (WELLBUTRIN XL) 300 mg ORAL DAILY DULoxetine 30 mg cap(s) (CYMBALTA) 30 mg ORAL DAILY enoxaparin 40 mg injection (LOVENOX) 40 mg SUBCUTANEOUS q 24 HR lactated ringers iv infusion 75 mL/hr INTRAVENOUS CONTINUOUS acetaminophen 650 mg tab(s) (TYLENOL) 650 mg ORAL q 6 H traMADol 50 mg tab(s) (ULTRAM) 50 mg ORAL q 6 H PRN ondansetron 4 mg tab(s) (ZOFRAN) 4 mg ORAL q 6 H PRN Or ondansetron (PF) 4 mg injection (ZOFRAN) 4 mg INTRAVENOUS q 6 H PRN losartan 100 mg tab(s) (COZAAR) 100 mg ORAL DAILY And hydroCHLOROthiazide 12.5 mg tab(s) 12.5 mg ORAL DAILY Labs: Recent Labs 04/03/25 0244 04/02/25 1247 NA 138 -- K 3.2* -- CHLOR 101 -- CO2 25 -- BUN 9 -- CREAT 0.60 -- GLUC 103* -- ANION 12 -- CA 8.6 -- WBC 9.27 15.31* HB 12.2 12.2 HCT 38.1 37.3 PLT 221 292 Physical Exam: GENERAL: resting comfortably, in no acute distress HEENT: normocephalic, atraumatic, EOMI NECK: trachea midline, no JVD LUNGS: Unlabored breathing, equal chest rise bilaterally CARDIAC: Regular rate, warm extremities, good perfusion throughout ABDOMEN: Soft, ttp around incisions, non-distended. No rebound or guarding. Incisions covered with band aids, no strikethrough. EXTREMITIES: REEDER, No deformities, No edema SKIN: Skin color, texture, turgor normal, No rashes or lesions NEURO: AANDOx3, CN II-XII grossly intact PSYCH: normal mood and affect ASSESSMENT AND PLAN: Assessment Active Hospital Problems Diagnosis Date Noted Paraesophageal hernia 08/12/2021 Assessment: 64 year old female with PMHx of HTN, HLD, GERD, LE DVT 06/26 (no AC). Patient had Redo Paraesophageal hernia repair with Rosenda fundoplication on 04/[address] Saavedra. Hospital Course/Operations/Procedures: 04/02/2025 Procedure(s): LAPAROSCOPIC RPR PARAESOHAGEAL HERNIA W/ FUNDOPLASTY W/ MESH--Laparoscopic, possible open, paraesophageal hernia repair with Rosenda fundoplicatio- revision rosenda takedown EGD Plan: Redo Paraesophageal hernia repair wityh Rosenda takedown and redo 04/02 - NPO, Plan to advance pending UGI study - UGI study today - LVX - AM labs - Nausea and pain PRN Discussed with attending: Dr. Saavedra SIGNATURE: Ortiz Mcmullen DO PATIENT NAME: Francia Gama DATE: April 03, 2025 TIME: 7:59 AM Pager: see below Elect[facility] General Surgery (Green Surgery) Service Pag (more content not included)... [facility] 04-02-2025 Note HNO ID: [id number] Author: PHIL MALDONADO MD Service: General Surgery Author Type: Resident Type: Plan of Care Filed: 04/02/2025 19:25 Note Text: General surgery Plan of Care: Patient evaluated at bedside for a postop check status post laparoscopic paraesophageal hernia repair with Rosenda fundoplication. States her pain is currently 8/10 and she feels slightly short of breath. Denies any significant chest pain, difficulty speaking, difficulty breathing. She is tolerating ice chips. She has ambulated and urinated. On exam she has appropriate postoperative tenderness and bruising around her incisions, however no hematoma, distention, guarding, rebound. She is afebrile, hemodynamically stable, and saturating well on 3 L NC. Phil Maldonado MD General surgery - PGY 1 7:21 PM 04/02/2025 [facility] 04-02-2025 Note HNO ID: [id number] Author: WERO BARAJAS APRN.CRNA Service: Anesthesiology Author Type: Nurse Health Record Technician Type: Anesthesia Procedure Notes Filed: 04/02/2025 07:53 Note Text: ANESTHESIOLOGY PROCEDURE NOTE Airway General Information Procedure Start Time/Medication Administration: 04/02/2025 7:24 AM Procedure End Time: 04/02/2025 7:24 AM Patient location during procedure: OR Timeout Performed Pre-procedure: timeout performed Consent Obtained: Yes Patient identity confirmed: arm band Staffing CORN DETASSELER MACHINE OPERATOR: Wero Barajas APRN.CORN DETASSELER MACHINE OPERATOR Performed by: ALEXUS Indications and Patient Condition Indications for airway management: anesthesia and airway protection Preoxygenated: yes anesthesia circuit Patient position: sniffing Method: asleep Cricoid Pressure: No Manual In-Line Stabilization: No Difficult Mask: No Final Airway Details Final airway type: endotracheal airway Final Endotracheal Airway: ETT Cuffed: yes Successful intubation technique: direct laryngoscopy Devices used: intubating stylet Endotracheal tube insertion site: oral Blade: Kae Blade size: #3 ETT size (mm): 7.0 Measured from: lips Measurement (cm): 21 Placement verified by: capnometry Cormack-Lehane Classification: grade IIa - partial view of glottis Number of attempts at approach: 1 Failed airway: no Unrecognized esophageal intubation: no Airway not difficult SIGNATURE: Wero Barajas APRN.CORN DETASSELER MACHINE OPERATOR PATIENT NAME: Francia Gama DATE: April 02, 2025 TIME: 7:52 AM CSN: [id number] [facility] 03-07-2025 Note HNO ID: [id number] Author: STEVEN JURADO RN Service: ? Author Type: Nurse Clinician Type: Progress Notes Filed: 03/07/2025 09:18 Note Text: Patient given folder with written information about laparoscopic Rosenda fundoplication and hiatal hernia repair, including the pre-op instructions, what to expect in the hospital, pre- and post-op diet and discharge instructions. I verbally discussed and reviewed all the information with the patient. All of patient's questions were answered. Patient has my contact information if she has questions prior to surgery. Steven Jurado RN [facility] 03-07-2025 History of Presen t illness Narrative Patient given folder with written information about laparoscopic Rosenda fundoplication and hiatal hernia repair, including the pre-op instructions, what to expect in the hospital, pre- and post-op diet and discharge instructions. I verbally discussed and reviewed all the information with the patient. All of patient's questions were answered. Patient has my contact information if she has questions prior to surgery. Steven Jurado RN SURGICAL SERVICES HISTORY AND PHYSICAL EXAMINATION SERVICE DATE: 03/07/2025 SERVICE TIME: 8:38 AM PRIMARY CARE PHYSICIAN: Julisa Cheung MD SUBJECTIVE CHIEF COMPLAINT: hernia HISTORY OF PRESENT ILLNESS: Ms. Gama is a 64 year old female with a PMH of HTN (amlodipine, losartan), anxiety, depression (Wellbutrin), HLD, obesity (35.19--BMI 31.52--> 30.39), chronic lower back pain/spinal stenosis, GERD (Protonix), LE DVT (x1 in 06/26 after a fall; on Eliquis 3 months) who presents for follow up and weight check. Her weight is stable today at 181 pounds. She endorses continued nausea and frequent heartburn symptoms with regurgitation and poor appetite. Workup: - EGD (10/12/24): HG 4 GEJ consistent with recurrent hernia; loose wrap - Pathology: Predominantly antral-type gastric mucosa with minimal chronic gastritis and features of reactive gastropathy. - Morphologic features of Helicobacter pylori infection are not identified - UGI (08/30/24): Postoperative changes of Rosenda fundoplication. Recurrent moderate-sized hiatal hernia. Positive for gastroesophageal reflux. - Manometry (10/12/24): GEJOO - UGI (01/30/21): moderate-sized hiatal hernia. - GES (80489): WNL - EGD: reflux esophagitis, duodenitis, disrupted fundoplication with recurrent hiatal hernia - Pathology: Benign gastric mucosa with features of very mild reactive gastropathy. Duodenum, biopsy - No pathologic abnormalities. Esophagus, biopsy - Benign squamous mucosa showing no pathologic abnormalities. Per my previous clinic notes: She underwent laparoscopic hiatal hernia repair (large type 3) with Rosenda fundoplication on 08/27/15 due to chronic anemia and Jean's ulcers thought to be due to her large hiatal hernia. She has had good results with no symptoms of anemia, heartburn or regurgitation since that time - until about 8-12 months ago. She lost 40 pounds surrounding the time of hernia repair, but has regained that weight and remains stable around 190-203 pounds. Social Hx: former smoker who quit in 2011 with no relapses; she drinks 6 beers per week; she uses recreational marijuana (one bowel per day); she denies use of other drugs. She works at [employer]. She lives with her daughter Maria L (works at [employer]) PSHx: lumbar laminectomy (L4/5), lap CCx, paraesophageal hernia repair (2014 w/ Dr. Skaggs), ANNA, left wrist fusion, ectopic PAST MEDICAL HISTORY: PAST MEDICAL HISTORY Diagnosis Date Acute deep vein thrombosis (DVT) of popliteal vein of left lower extremity (HCC) 06/2020 Eliquis x 3 months off now. After a fall Depression Dysphagia Essential hypertension, benign Generalized anxiety disorder GERD (gastroesophageal reflux disease) Hiatal hernia surgically corrected 2014; recurrent 10/12/24 AARON (obstructive sleep apnea) mild -no CPAP Spondylolisthesis of lumbar region PAST SURGICAL HISTORY: PAST SURGICAL HISTORY Procedure Laterality Date CAPSULE ENDOSCOPY SMALL BOWEL WITH EGD (HL,MM) 06/01/2015 COLONOSCOPY W/BIOPSY SINGLE/MULTIPLE 05/25/2015 EGD WITH BIOPSY(S) 05/27/2015 hiatal hernia; Dr. Killian EGD WITH BIOPSY(S) 04/10/2021 Dr. Saavedra EGD WITH BIOPSY(S) 10/12/2024 recurrent hiatal hernia; Dr. Saavedra LAMINECTOMY,LUMBAR 07/24/2015 L4-5 with facetectomy LAPS RPR PARAESPHGL HRNA INCL FUNDPLSTY W/MESH 08/27/2015 with anterior/posterior gastropexy; Dr. Skaggs LAPS SURG CHOLECYSTECTOMY W/CHOLANGIOGRAPHY 09/10/2008 nORMAL ioc LUMBAR SPINE FUSION COMBINED 05/07/2021 L4-5 w/iliac bone graft & facetectomy MANOMETRY ESOPHAGEAL 10/12/2024 Dr. Saavedra TOTAL ABDOMINAL HYSTERECT W/WO RMVL TUBE OVARY 10/07/2007 TX ECTOPIC W/O SALPING&/OOPHORECTOMY WRIST SURGERY HX Left 05/07/2007 fusion wrist-partial WRIST SURGERY HX Left 04/07/2006 fusion wrist-partial FAMILY HISTORY: FAMILY HISTORY Problem Relation Age of Onset other (a fib) Mother Diabetes Mother other (HTn) Mother Coronary Artery Disease Father Heart Failure Father Diabetes Brother other (cardiac stents) Brother Heart Brother Heart Maternal Grandmother Cancer Maternal Grandfather Cancer Paternal Grandmother SOCIAL HISTORY: Social History Tobacco Use Smoking status: Former Current packs/day: 0.00 Types: Cigarettes Start date: 05/14/2002 Quit date: 11/12/2008 Years since quittin.3 Smokeless tobacco: Never Tobacco comments: 1 pack per week Vaping Use Vaping status: Former Substance Use Topics Alcohol use: Yes Alcohol/week: 7.0 standard drinks of alcohol Types: 7 Cans of Beer (12oz) per week Comment: socially-once weekly Drug use: Yes Types: Marijuana Comment: occ MEDICATIONS: Current Outpatient Medications Medication Sig pantoprazole DR (PROTONIX) 40 mg tablet Take 1 tablet by mouth two times a day. DULoxetine (CYMBALTA) 30 mg capsule Take 1 capsule by mouth every afternoon. sucralfate (CARAFATE) 1 gram tablet TAKE 1 TABLET BY MOUTH TWICE DAILY. FOLLOW SLURRY INSTRUCTIONS. cyclobenzaprine (FLEXERIL) 10 mg tablet Take 1 tablet by mouth three times daily as needed for muscle spasm. buPROPion XL (WELLBUTRIN XL) 300 mg 24 hr tablet Take 300 mg by mouth once daily. Cholecalciferol, Vitamin D3, 50 mcg (2,000 unit) cap Take 1 capsule by mouth once daily. fluticasone (FLONASE) 50 mcg/actuation nasal spray Use 2 (TWO) sprays IN EACH NOSTRIL DAILY DIRECTED polyethylene glycol 3350 (MIRALAX, GLYCOLAX) 17 gram/dose powder Use as directed for Miralax / Gatorade Bowel Prep Kit Gatorade Sports Drink Use as directed for Miralax / Gatorade Bowel Prep Kit Bisacodyl (DULCOLAX) 5 mg tab Use as directed for Miralax / Gatorade Bowel Prep Kit fexofenadine HCl (BETTY ORAL) Take by mouth once daily. losartan-hydroCHLOROthiazide (HYZAAR) 100-25 mg per tablet Take 1 tablet by mouth once daily. amlodipine besylate (AMLODIPINE ORAL) Take 10 mg by mouth once daily. citalopram hydrobromide(CELEXA 40 MG TAB) Take one(1) tablet daily. pantoprazole DR (PROTONIX) 40 mg tablet Take 1 tablet by mouth once daily. pregabalin (LYRICA) 150 mg capsule Take 1 capsule by mouth twice daily for 30 days. METOPROLOL SR 100 MG 24 HR TAB Take 100 mg by mouth two times a day. (Patient not taking: Reported on 03/07/2025) No current facility-administered medications for this visit. ALLERGIES: ALLERGIES Allergen Reactions Kiwi Anaphylaxis Latex, Natural Rubb* Hives Tetracycline Vomiting Paroxetine Unknown Morphine Itching COMPLETE REVIEW OF SYSTEMS: Review of Systems Constitutional: Negative for chills, diaphoresis, fever and malaise/fatigue. HENT: Negative for congestion, hearing loss, nosebleeds, sinus pain, sore throat and tinnitus. Eyes: Negative for blurred vision, double vision, pain and redness. Respiratory: Negative for cough, hemoptysis, sputum production, shortness of breath and wheezing. Cardiovascular: Positive for chest pain (substernal burning). Negative for palpitations, orthopnea, leg swelling and PND. Gastrointestinal: Positive for abdominal pain, heartburn and nausea. Negative for blood in stool, constipation, diarrhea and vomiting. Genitourinary: Negative for dysuria, frequency, hematuria and urgency. Musculoskeletal: Positive for back pain. Negative for falls, joint pain, myalgias and neck pain. Skin: Negative for itching and rash. Neurological: Negative for dizziness, speech change, focal weakness, seizures, loss of consciousness, weakness and headaches. Endo/Heme/Allergies: Does not bruise/bleed easily. Psychiatric/Behavioral: Positive for depression. Negative for hallucinations, memory loss, substance abuse and suicidal ideas. The patient is nervous/anxious. The patient does not have insomnia. OBJECTIVE PHYSICAL EXAM: BP 131/73 Pulse 84 Ht 5' 5 (1.65m) Wt 181 lb (82.1kg) SpO2 97% BMI 30.12 kg/(m^2). Physical Exam Vitals reviewed. Constitutional: Appearance: Normal appearance. She is obese. HENT: Head: Normocephalic and atraumatic. Nose: Nose normal. Eyes: General: No scleral icterus. Extraocular Movements: Extraocular movements intact. Conjunctiva/sclera: Conjunctivae normal. Pupils: Pupils are equal, round, and reactive to light. Cardiovascular: Rate and Rhythm: Normal rate. Pulmonary: Effort: Pulmonary effort is normal. No respiratory distress. Skin: General: Skin is warm and dry. Coloration: Skin is not jaundiced or pale. Neurological: Mental Status: She is alert and oriented to person, place, and time. Psychiatric: Mood and Affect: Mood normal. Behavior: Behavior normal. DATA: Diagnostic tests reviewed for today's visit: EMR reviewed Plan ASSESSMENT AND PLAN Francia Gama is a 64 year old female with a PMH as noted above who presents in follow up for weight check and check in prior to upcoming repair of recurrent paraesophageal hernia. 1. Gastroesophageal reflux disease without esophagitis - ICD9: 530.81, ICD10: K21.9 (primary diagnosis) - Discussed lifestyle modifications including losing weight, limiting caffeine, no meals three hours before sleep, and head of bed elevation - Continue treatment with Protonix 40 mg BID until two weeks following surgery - Today in clinic the patient and I again reviewed her diagnosis, her workup and treatment up to this point, and my recommended treatment going forward. We discussed surgical repair of her known recurrent paraesophageal hernia which has been complicated by severe GERD and intermittent dysphagia. - We again reviewed the surgical procedure - laparoscopic, possible open, paraesophageal hernia repair with Rosenda fundoplication, Bio-A mesh placement, EGD, and possible blood transfusion. - All of her questions and concerns were addressed. The informed consent was reviewed and the patient provided both written and verbal informed consent. We discussed the potential risks and complications associated with surgery, including but not limited to, infection, scarring, postoperative bleeding, injury to surrounding structures (stomach, esophagus, spleen, liver, lungs, vagus nerves), deep vein thrombosis, pulmonary embolism, pneumonia, myocardial infarction. We also discussed extermination inspector risks of recurrence and the importance of keeping weight below a BMI of 30, dysphagia, and bloating. - Pt is requesting a lot of nausea medication after surgery as she has a history of severe post operative nausea - COMPLETE BLOOD COUNT AND DIFFERENTIAL - BASIC METABOLIC PANEL 2. Paraesophageal hernia - ICD9: 553.3, ICD10: K44.9 - As above 3. Hypertension, unspecified type - ICD9: 401.9, ICD10: I10 - Continue current medical management 4. Class 1 obesity with serious comorbidity and body mass index (BMI) of 31.0 to 31.9 in adult, unspecified obesity type - ICD9: 278.00, V85.31, ICD10: E66.811, Z68.31 - Weight is stable - was 176 pounds at home and is 181 pounds here with full clothes and shoes on Medical Decision Making: Problems: Moderate: 2+ stable chronic illnesses Data: Unique test result(s) reviewed: 3+ Discussed management or test w/ external physician/QHCP/source Risk: Moderate: Drug management High: Decision on elective major surgery w/ risk factors Medical Decision Making Level: 5 - High SIGNATURE: Mitra Saavedra MD PATIENT NAME: Francia Gama DATE: March 07, 2025 TIME: 8:38 AM PAGER/CONTACT #: [id number] Patient states she still has a lot of nausea. Magda Rebollar MA documented in this encounter [facility] 03-07-2025 Note HNO ID: [id number] Author: MITRA SAAVEDRA MD Service: ? Author Type: Physician Type: Progress Notes Filed: 03/07/2025 08:56 Note Text: SURGICAL SERVICES HISTORY AND PHYSICAL EXAMINATION SERVICE DATE: 03/07/2025 SERVICE TIME: 8:38 AM PRIMARY CARE PHYSICIAN: Julisa Cheung MD SUBJECTIVE CHIEF COMPLAINT: hernia HISTORY OF PRESENT ILLNESS: Ms. Gama is a 64 year old female with a PMH of HTN (amlodipine, losartan), anxiety, depression (Wellbutrin), HLD, obesity (35.19--BMI 31.52--> 30.39), chronic lower back pain/spinal stenosis, GERD (Protonix), LE DVT (x1 in 06/26 after a fall; on Eliquis 3 months) who presents for follow up and weight check. Her weight is stable today at 181 pounds. She endorses continued nausea and frequent heartburn symptoms with regurgitation and poor appetite. Workup: - EGD (10/12/24): HG 4 GEJ consistent with recurrent hernia; loose wrap - Pathology: Predominantly antral-type gastric mucosa with minimal chronic gastritis and features of reactive gastropathy. - Morphologic features of Helicobacter pylori infection are not identified - UGI (08/30/24): Postoperative changes of Rosenda fundoplication. Recurrent moderate-sized hiatal hernia. Positive for gastroesophageal reflux. - Manometry (10/12/24): GEJOO - UGI (01/30/21): moderate-sized hiatal hernia. - GES (59205): WNL - EGD: reflux esophagitis, duodenitis, disrupted fundoplication with recurrent hiatal hernia - Pathology: Benign gastric mucosa with features of very mild reactive gastropathy. Duodenum, biopsy - No pathologic abnormalities. Esophagus, biopsy - Benign squamous mucosa showing no pathologic abnormalities. Per my previous clinic notes: She underwent laparoscopic hiatal hernia repair (large type 3) with Rosenda fundoplication on 08/27/15 due to chronic anemia and Jean's ulcers thought to be due to her large hiatal hernia. She has had good results with no symptoms of anemia, heartburn or regurgitation since that time - until about 8-12 months ago. She lost 40 pounds surrounding the time of hernia repair, but has regained that weight and remains stable around 190-203 pounds. Social Hx: former smoker who quit in 2011 with no relapses; she drinks 6 beers per week; she uses recreational marijuana (one bowel per day); she denies use of other drugs. 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 She lives with her daughter Maria L (works at [employer]) PSHx: lumbar laminectomy (L4/5), lap CCx, paraesophageal hernia repair (2014 w/ Dr. Skaggs), ANNA, left wrist fusion, ectopic PAST MEDICAL HISTORY: PAST MEDICAL HISTORY Diagnosis Date Acute deep vein thrombosis (DVT) of popliteal vein of left lower extremity (HCC) 06/2020 Eliquis x 3 months off now. After a fall Depression Dysphagia Essential hypertension, benign Generalized anxiety disorder GERD (gastroesophageal reflux disease) Hiatal hernia surgically corrected 2014; recurrent 10/12/24 AARON (obstructive sleep apnea) mild -no CPAP Spondylolisthesis of lumbar region PAST SURGICAL HISTORY: PAST SURGICAL HISTORY Procedure Laterality Date CAPSULE ENDOSCOPY SMALL BOWEL WITH EGD (HL,MM) 06/01/2015 COLONOSCOPY W/BIOPSY SINGLE/MULTIPLE 05/25/2015 EGD WITH BIOPSY(S) 05/27/2015 hiatal hernia; Dr. Killian EGD WITH BIOPSY(S) 04/10/2021 Dr. Saavedra EGD WITH BIOPSY(S) 10/12/2024 recurrent hiatal hernia; Dr. Saavedra LAMINECTOMY,LUMBAR 07/24/2015 L4-5 with facetectomy LAPS RPR PARAESPHGL HRNA INCL FUNDPLSTY W/MESH 08/27/2015 with anterior/posterior gastropexy; Dr. Skaggs LAPS SURG CHOLECYSTECTOMY W/CHOLANGIOGRAPHY 09/10/2008 nORMAL ioc LUMBAR SPINE FUSION COMBINED 05/07/2021 L4-5 w/iliac bone graft AND facetectomy MANOMETRY ESOPHAGEAL 10/12/2024 Dr. Saavedra TOTAL ABDOMINAL HYSTERECT W/WO RMVL TUBE OVARY 10/07/2007 TX ECTOPIC W/O SALPINGAND/OOPHORECTOMY WRIST SURGERY HX Left 05/07/2007 fusion wrist-partial WRIST SURGERY HX Left 04/07/2006 fusion wrist-partial FAMILY HISTORY: FAMILY HISTORY Problem Relation Age of Onset other (a fib) Mother Diabetes Mother other (HTn) Mother Coronary Artery Disease Father Heart Failure Father Diabetes Brother other (cardiac stents) Brother Heart Brother Heart Maternal Grandmother Cancer Maternal Grandfather Cancer Paternal Grandmother SOCIAL HISTORY: Social History Tobacco Use Smoking status: Former Current packs/day: 0.00 Types: Cigarettes Start date: 05/14/2002 Quit date: 11/12/2008 Years since quittin.3 Smokeless tobacco: Never Tobacco comments: 1 pack per week Vaping Use Vaping status: Former Substance Use Topics Alcohol use: Yes Alcohol/week: 7.0 standard drinks of alcohol Types: 7 Cans of Beer (12oz) per week Comment: socially-once weekly Drug use: Yes Types: Marijuana Comment: occ MEDICATIONS: Current Outpatient Medications Medication Sig pantoprazole DR (PROTONIX) 40 mg tablet Take 1 (more content not included)... [facility] 03-07-2025 Note HNO ID: [id number] Author: MAGDA REBOLLAR MA Service: ? Author Type: Gun Fertilizer Type: Progress Notes Filed: 03/07/2025 08:56 Note Text: Patient states she still has a lot of nausea. Magda Rebollar MA [facility] 02-04-2025 Telephone encounter Note Lvm and sent MCM to reschedule 04/17 ac - Keri is out of office 04/16-04/26. [facility] 02-04-2025 Miscellaneous Notes Lvm and sent MCM to reschedule 04/17 appt - Keri is out of office . documented in this encounter [facility] 02-01-2025 Telephone encounter Note Lvm and sent MCM to reschedule 04/17 appt - Keri is out of office . [facility] 02-01-2025 Miscellaneous Notes Lvm and sent MCM to reschedule 04/17 appt - Keri is out of office 04/16-04/26. documented in this encounter [facility] 12-06-2024 Note HNO ID: [id number] Author: ?, ?, ? Service: ? Author Type: ? Type: Progress Notes Filed: 12/06/2024 10:15 Note Text: lap paraesophageal hernia repair with Rosenda. she wants the surgery at the end of March. please schedule on a Tuesday as I may be out some Mondays in March [facility] 12-06-2024 History of Presen t illness Narrative lap paraesophageal hernia repair with Rosenda. she wants the surgery at the end of March. please schedule on a Tuesday as I may be out some Mondays in March documented in this encounter [facility] 12-06-2024 Note HNO ID: [id number] Author: MITRA SAAVEDRA MD Service: ? Author Type: Physician Type: Progress Notes Filed: 12/06/2024 08:35 Note Text: SURGICAL SERVICES HISTORY AND PHYSICAL EXAMINATION SERVICE DATE: 12/06/2024 SERVICE TIME: 8:11 AM PRIMARY CARE PHYSICIAN: Julisa Cheung MD SUBJECTIVE CHIEF COMPLAINT: hernia HISTORY OF PRESENT ILLNESS: Ms. Gama is a 64 year old female with a PMH of HTN (amlodipine, losartan), anxiety, depression (Wellbutrin), HLD, obesity (35.19--BMI 31.52--> 30.39), chronic lower back pain/spinal stenosis, GERD (Protonix), LE DVT (x1 in 06/26 after a fall; on Eliquis 3 months) who presents for follow up after recent testing. Today she reports that she is overall doing well but continues with frequent severe heartburn symptoms and has overall poor appetite. Workup: - EGD (10/12/24): HG 4 GEJ consistent with recurrent hernia; loose wrap - Pathology: Predominantly antral-type gastric mucosa with minimal chronic gastritis and features of reactive gastropathy. - Morphologic features of Helicobacter pylori infection are not identified - UGI (08/30/24): Postoperative changes of Rosenda fundoplication. Recurrent moderate-sized hiatal hernia. Positive for gastroesophageal reflux. - Manometry (10/12/24): GEJOO - UGI (01/30/21): moderate-sized hiatal hernia. - GES (87265): WNL - EGD: reflux esophagitis, duodenitis, disrupted fundoplication with recurrent hiatal hernia - Pathology: Benign gastric mucosa with features of very mild reactive gastropathy. Duodenum, biopsy - No pathologic abnormalities. Esophagus, biopsy - Benign squamous mucosa showing no pathologic abnormalities. Per my last clinic note in 07/2024: she reports that two months ago she was evaluated at [facility] due to abdominal pain. She underwent CT scan which demonstrated inflammation and a larger hernia. I, unfortunately, do not have access to these images. She states that her symptoms are more severe not than they were 3 years ago. She experiences constant substernal burning and nausea, intermittent bleaching, and regurgitation and emesis after eating and this occurs several times per month. She has rare dysphagia. She remains on Carafate and Prilosec 40 mg BID. Despite taking these medications she continues to have symptoms. I last saw her in clinic on 04/29/2021. Per my last clinic note: She endorses symptoms of dysphagia, heartburn, and chest pain which began 1 year ago and has progressively worsened with intake of solids - she also endorses regurgitation, belching, and substernal burning. She reportsthings getting stuck in my throat and it is difficult to swallow. Symptoms of heartburn began approximately 8 months ago at which time she began taking Prilosec daily. She endorses a 6 month history of abdominal pain/epigastric burning. She endorses intermittent nausea with oral intake (of note UGI from 10/2015 after Rosenda demonstrated a large amount of food in the stomach). QOL score today is 40. She endorses lack of appetite. She underwent laparoscopic hiatal hernia repair (large type 3) with Rosenda fundoplication on 08/27/15 due to chronic anemia and Jean's ulcers thought to be due to her large hiatal hernia. She has had good results with no symptoms of anemia, heartburn or regurgitation since that time - until about 8-12 months ago. She lost 40 pounds surrounding the time of hernia repair, but has regained that weight and remains stable around 190-203 pounds. Social Hx: former smoker who quit in 2011 with no relapses; she drinks 6 beers per week; she uses recreational marijuana (one bowel per day); she denies use of other drugs. She works at [employer]. She lives with her daughter Maria L (works at [employer]) PSHx: lumbar laminectomy (L4/5), lap CCx, paraesophageal hernia repair (2014 w/ Dr. Skaggs), ANNA, left wrist fusion, ectopic PAST MEDICAL HISTORY: PAST MEDICAL HISTORY Diagnosis Date Acute deep vein thrombosis (DVT) of popliteal vein of left lower extremity (HCC) 06/2020 Eliquis x 3 months off now. After a fall Depression Dysphagia Essential hypertension, benign Generalized anxiety disorder GERD (gastroesophageal reflux disease) Hiatal hernia surgically corrected 2014; recurrent 10/12/24 AARON (obstructive sleep apnea) mild -no CPAP Spondylolisthesis of lumbar region PAST SURGICAL HISTORY: PAST SURGICAL HISTORY Procedure Laterality Date CAPSULE ENDOSCOPY SMALL BOWEL WITH EGD (HL,MM) 06/01/2015 COLONOSCOPY W/BIOPSY SINGLE/MULTIPLE 05/25/2015 EGD WITH BIOPSY(S) 05/27/2015 hiatal hernia; Dr. Killian EGD WITH BIOPSY(S) 04/10/2021 Dr. Saavedra EGD WITH BIOPSY(S) 10/12/2024 recurrent hiatal hernia; Dr. Saavedra LAMINECTOMY,LUMBAR 07/24/2015 L4-5 with facetectomy LAPS RPR PARAESPHGL HRNA INCL FUNDPLSTY W/MESH 08/27/2015 with anterior/posterior gastropexy; Dr. Giles NEAL SURG CHOLECYSTECTOMY (more content not included)... [facility] 12-06-2024 History of Presen t illness Narrative SURGICAL SERVICES HISTORY AND PHYSICAL EXAMINATION SERVICE DATE: 12/06/2024 SERVICE TIME: 8:11 AM PRIMARY CARE PHYSICIAN: Julisa Cheung MD SUBJECTIVE CHIEF COMPLAINT: hernia HISTORY OF PRESENT ILLNESS: Ms. Gama is a 64 year old female with a PMH of HTN (amlodipine, losartan), anxiety, depression (Wellbutrin), HLD, obesity (35.19--BMI 31.52--> 30.39), chronic lower back pain/spinal stenosis, GERD (Protonix), LE DVT (x1 in 06/26 after a fall; on Eliquis 3 months) who presents for follow up after recent testing. Today she reports that she is overall doing well but continues with frequent severe heartburn symptoms and has overall poor appetite. Workup: - EGD (10/12/24): HG 4 GEJ consistent with recurrent hernia; loose wrap - Pathology: Predominantly antral-type gastric mucosa with minimal chronic gastritis and features of reactive gastropathy. - Morphologic features of Helicobacter pylori infection are not identified - UGI (08/30/24): Postoperative changes of Rosenda fundoplication. Recurrent moderate-sized hiatal hernia. Positive for gastroesophageal reflux. - Manometry (10/12/24): GEJOO - UGI (01/30/21): moderate-sized hiatal hernia. - GES ([id number]): WNL - EGD: reflux esophagitis, duodenitis, disrupted fundoplication with recurrent hiatal hernia - Pathology: Benign gastric mucosa with features of very mild reactive gastropathy. Duodenum, biopsy - No pathologic abnormalities. Esophagus, biopsy - Benign squamous mucosa showing no pathologic abnormalities. Per my last clinic note in 07/2024: she reports that two months ago she was evaluated at [facility] due to abdominal pain. She underwent CT scan which demonstrated inflammation and a larger hernia. I, unfortunately, do not have access to these images. She states that her symptoms are more severe not than they were 3 years ago. She experiences constant substernal burning and nausea, intermittent bleaching, and regurgitation and emesis after eating and this occurs several times per month. She has rare dysphagia. She remains on Carafate and Prilosec 40 mg BID. Despite taking these medications she continues to have symptoms. I last saw her in clinic on 04/29/2021. Per my last clinic note: She endorses symptoms of dysphagia, heartburn, and chest pain which began 1 year ago and has progressively worsened with intake of solids - she also endorses regurgitation, belching, and substernal burning. She reportsthings getting stuck in my throat and it is difficult to swallow. Symptoms of heartburn began approximately 8 months ago at which time she began taking Prilosec daily. She endorses a 6 month history of abdominal pain/epigastric burning. She endorses intermittent nausea with oral intake (of note UGI from 10/2015 after Rosenda demonstrated a large amount of food in the stomach). QOL score today is 40. She endorses lack of appetite. She underwent laparoscopic hiatal hernia repair (large type 3) with Rosenda fundoplication on 08/27/15 due to chronic anemia and Jean's ulcers thought to be due to her large hiatal hernia. She has had good results with no symptoms of anemia, heartburn or regurgitation since that time - until about 8-12 months ago. She lost 40 pounds surrounding the time of hernia repair, but has regained that weight and remains stable around 190-203 pounds. Social Hx: former smoker who quit in 2011 with no relapses; she drinks 6 beers per week; she uses recreational marijuana (one bowel per day); she denies use of other drugs. She works at [employer]. She lives with her daughter Maria L (works at [employer]) PSHx: lumbar laminectomy (L4/5), lap CCx, paraesophageal hernia repair (2014 w/ Dr. Skaggs), ANNA, left wrist fusion, ectopic PAST MEDICAL HISTORY: PAST MEDICAL HISTORY Diagnosis Date Acute deep vein thrombosis (DVT) of popliteal vein of left lower extremity (HCC) 06/2020 Eliquis x 3 months off now. After a fall Depression Dysphagia Essential hypertension, benign Generalized anxiety disorder GERD (gastroesophageal reflux disease) Hiatal hernia surgically corrected 2014; recurrent 10/12/24 AARON (obstructive sleep apnea) mild -no CPAP Spondylolisthesis of lumbar region PAST SURGICAL HISTORY: PAST SURGICAL HISTORY Procedure Laterality Date CAPSULE ENDOSCOPY SMALL BOWEL WITH EGD (HL,MM) 06/01/2015 COLONOSCOPY W/BIOPSY SINGLE/MULTIPLE 05/25/2015 EGD WITH BIOPSY(S) 05/27/2015 hiatal hernia; Dr. Killian EGD WITH BIOPSY(S) 04/10/2021 Dr. Saavedra EGD WITH BIOPSY(S) 10/12/2024 recurrent hiatal hernia; Dr. Saavedra LAMINECTOMY,LUMBAR 07/24/2015 L4-5 with facetectomy LAPS RPR PARAESPHGL HRNA INCL FUNDPLSTY W/MESH 08/27/2015 with anterior/posterior gastropexy; Dr. Skaggs LAPS SURG CHOLECYSTECTOMY W/CHOLANGIOGRAPHY 09/10/2008 nORMAL ioc LUMBAR SPINE FUSION COMBINED 05/07/2021 L4-5 w/iliac bone graft & facetectomy MANOMETRY ESOPHAGEAL 10/12/2024 Dr. Saavedra TOTAL ABDOMINAL HYSTERECT W/WO RMVL TUBE OVARY 10/07/2007 TX ECTOPIC W/O SALPING&/OOPHORECTOMY WRIST SURGERY HX Left 05/07/2007 fusion wrist-partial WRIST SURGERY HX Left 04/07/2006 fusion wrist-partial FAMILY HISTORY: FAMILY HISTORY Problem Relation Age of Onset other (a fib) Mother Diabetes Mother other (HTn) Mother Coronary Artery Disease Father Heart Failure Father Diabetes Brother other (cardiac stents) Brother Heart Brother Heart Maternal Grandmother Cancer Maternal Grandfather Cancer Paternal Grandmother SOCIAL HISTORY: Social History Tobacco Use Smoking status: Former Current packs/day: 0.00 Types: Cigarettes Start date: 05/14/2002 Quit date: 11/12/2008 Years since quittin.0 Smokeless tobacco: Never Tobacco comments: 1 pack per week Vaping Use Vaping status: Former Substance Use Topics Alcohol use: Yes Alcohol/week: 7.0 standard drinks of alcohol Types: 7 Cans of Beer (12oz) per week Comment: socially-once weekly Drug use: Yes Types: Marijuana Comment: occ MEDICATIONS: Current Outpatient Medications Medication Sig pantoprazole DR (PROTONIX) 40 mg tablet Take 1 tablet by mouth two times a day. DULoxetine (CYMBALTA) 30 mg capsule Take 1 capsule by mouth every afternoon. cyclobenzaprine (FLEXERIL) 10 mg tablet Take 1 tablet by mouth three times daily as needed for muscle spasm. buPROPion XL (WELLBUTRIN XL) 300 mg 24 hr tablet Take 300 mg by mouth once daily. Cholecalciferol, Vitamin D3, 50 mcg (2,000 unit) cap Take 1 capsule by mouth once daily. fluticasone (FLONASE) 50 mcg/actuation nasal spray Use 2 (TWO) sprays IN EACH NOSTRIL DAILY DIRECTED fexofenadine HCl (BETTY ORAL) Take by mouth once daily. losartan-hydroCHLOROthiazide (HYZAAR) 100-25 mg per tablet Take 1 tablet by mouth once daily. amlodipine besylate (AMLODIPINE ORAL) Take 10 mg by mouth once daily. citalopram hydrobromide(CELEXA 40 MG TAB) Take one(1) tablet daily. sucralfate (CARAFATE) 1 gram tablet TAKE 1 TABLET BY MOUTH TWICE DAILY. FOLLOW SLURRY INSTRUCTIONS. polyethylene glycol 3350 (MIRALAX, GLYCOLAX) 17 gram/dose powder Use as directed for Miralax / Gatorade Bowel Prep Kit Gatorade Sports Drink Use as directed for Miralax / Gatorade Bowel Prep Kit Bisacodyl (DULCOLAX) 5 mg tab Use as directed for Miralax / Gatorade Bowel Prep Kit pregabalin (LYRICA) 150 mg capsule Take 1 capsule by mouth twice daily for 30 days. METOPROLOL SR 100 MG 24 HR TAB Take 100 mg by mouth two times a day. No current facility-administered medications for this visit. ALLERGIES: ALLERGIES Allergen Reactions Kiwi Anaphylaxis Latex, Natural Rubb* Hives Tetracycline Vomiting Paroxetine Unknown Morphine Itching COMPLETE REVIEW OF SYSTEMS: Review of Systems Constitutional: Negative for chills, diaphoresis, fever and malaise/fatigue. HENT: Negative for congestion, hearing loss, nosebleeds, sinus pain, sore throat and tinnitus. Eyes: Negative for blurred vision, double vision, pain and redness. Respiratory: Negative for cough, hemoptysis, sputum production, shortness of breath and wheezing. Cardiovascular: Positive for chest pain (substernal burning). Negative for palpitations, orthopnea, leg swelling and PND. Gastrointestinal: Positive for abdominal pain, heartburn and nausea. Negative for blood in stool, constipation, diarrhea and vomiting. Genitourinary: Negative for dysuria, frequency, hematuria and urgency. Musculoskeletal: Positive for back pain. Negative for falls, joint pain, myalgias and neck pain. Skin: Negative for itching and rash. Neurological: Negative for dizziness, speech change, focal weakness, seizures, loss of consciousness, weakness and headaches. Endo/Heme/Allergies: Does not bruise/bleed easily. Psychiatric/Behavioral: Positive for depression. Negative for hallucinations, memory loss, substance abuse and suicidal ideas. The patient is nervous/anxious. The patient does not have insomnia. OBJECTIVE PHYSICAL EXAM: BP 177/80 Pulse 79 Ht 5' 5 (1.65m) Wt 182 lb 9.6 oz (82.8kg) SpO2 98% BMI 30.39 kg/(m^2). Physical Exam Vitals reviewed. Constitutional: Appearance: Normal appearance. She is obese. HENT: Head: Normocephalic and atraumatic. Nose: Nose normal. Eyes: General: No scleral icterus. Extraocular Movements: Extraocular movements intact. Conjunctiva/sclera: Conjunctivae normal. Pupils: Pupils are equal, round, and reactive to light. Cardiovascular: Rate and Rhythm: Normal rate. Pulmonary: Effort: Pulmonary effort is normal. No respiratory distress. Skin: General: Skin is warm and dry. Coloration: Skin is not jaundiced or pale. Neurological: General: No focal deficit present. Mental Status: She is alert and oriented to person, place, and time. Psychiatric: Mood and Affect: Mood normal. Behavior: Behavior normal. DATA: Diagnostic tests reviewed for today's visit: EMR reviewed Plan ASSESSMENT AND PLAN Francia Gama is a 64 year old female with a PMH as noted above who presents with GERD and recurrent paraesophageal hernia. ASSESSMENT/PLAN: 1. Gastroesophageal reflux disease without esophagitis - ICD9: 530.81, ICD10: K21.9 (primary diagnosis) - Discussed lifestyle modifications including losing weight, limiting caffeine, no meals three hours before sleep, and head of bed elevation - Continue treatment with Protonix 40 mg BID - renewed prescription today - CONSULT TO PRE-SURGICAL TESTING (AG) - ECG COMPLETE - COMPLETE BLOOD COUNT AND DIFFERENTIAL - BASIC METABOLIC PANEL 2. Paraesophageal hernia - ICD9: 553.3, ICD10: K44.9 - Today in clinic the patient and I reviewed her diagnosis, her workup and treatment up to this point, and my recommended treatment going forward. We discussed surgical repair of her known recurrent paraesophageal hernia which has been complicated by severe GERD and intermittent dysphagia. - We reviewed the surgical procedure - laparoscopic, possible open, paraesophageal hernia repair with Rosenda fundoplication, Bio-A mesh placement, EGD, and possible blood transfusion. - All of her questions and concerns were addressed. The informed consent was reviewed and the patient provided both written and verbal informed consent. We discussed the potential risks and complications associated with surgery, including but not limited to, infection, scarring, postoperative bleeding, injury to surrounding structures (stomach, esophagus, spleen, liver, lungs, vagus nerves), deep vein thrombosis, pulmonary embolism, pneumonia, myocardial infarction. We also discussed extermination inspector risks of recurrence and the importance of keeping weight below a BMI of 30, dysphagia, and bloating. - While we will perform appropriate precautions to minimize patient exposure and risk, by undergoing surgery during the Covid-19 pandemic, the patient understands and accepts the unpredictable nature of the Covid-19 virus and the possibility of risks specific to the Covid-19 virus including but not limited to pneumonia, respiratory failure, sepsis, blood clots in different organs, heart attack, stroke, multiple organ failure, and . The patient understands and accepts these risks prior to proceeding with surgery. - We discussed the importance of adhering to self-quarantine for 2 weeks following surgery - CONSULT TO PRE-SURGICAL TESTING (AG) - ECG COMPLETE - COMPLETE BLOOD COUNT AND DIFFERENTIAL - BASIC METABOLIC PANEL 3. Hypertension, unspecified type - ICD9: 401.9, ICD10: I10 - Continue current medical management 4. Class 1 obesity with serious comorbidity and body mass index (BMI) of 30.0 to 30.9 in adult, unspecified obesity type - ICD9: 278.00, V85.30, ICD10: E66.811, Z68.30 - Continue working on weight loss and weight maintenance. Medical Decision Making: Problems: Moderate: 2+ stable chronic illnesses Data: Unique test result(s) reviewed: 3+ Discussed management or test w/ external physician/QHCP/source Medical Decision Making Level: 4 - Moderate SIGNATURE: Mitra Saavedra MD PATIENT NAME: Francia Gama DATE: December 06, 2024 TIME: 8:11 AM PAGER/CONTACT #: [id number] documented in this encounter [facility] 10-12-2024 Nurse Note The patient was brought into the procedure and a time out was performed. Patient denies taking any muscle relaxers or blood thinners. Patient denies any surgery or injuries to the nose. After confirmation of potential allergies a topical analgesic was used to numb Left Nares followed by the trans-nasal insertion of a High Resolution Manometry Catheter. Position was verified. A 30 second baseline pressure was obtained to identify the UES and the LES followed by a series of 10 wet swallows using 5 ml of room temperature Normal Saline to assess esophageal motility. At the conclusion of the procedure the catheter was removed with no heme noted. Patient tolerated the procedure well and was informed of possible congestion and minimal nose bleeding following procedure. [facility] 10-12-2024 Nurse Note The patient was brought into the procedure and a time out was performed. Patient denies taking any muscle relaxers or blood thinners. Patient denies any surgery or injuries to the nose. After confirmation of potential allergies a topical analgesic was used to numb Left Nares followed by the trans-nasal insertion of a High Resolution Manometry Catheter. Position was verified. A 30 second baseline pressure was obtained to identify the UES and the LES followed by a series of 10 wet swallows using 5 ml of room temperature Normal Saline to assess esophageal motility. At the conclusion of the procedure the catheter was removed with no heme noted. Patient tolerated the procedure well and was informed of possible congestion and minimal nose bleeding following procedure. documented in this encounter [facility] 09-28-2024 History and physical note HISTORY AND PHYSICAL EXAMINATION SERVICE DATE: 09/28/2024 SERVICE TIME: 8:52 AM PRIMARY CARE PHYSICIAN: Julisa Cheung MD REASON FOR VISIT: Francia Gama is a 64 year old female who is scheduled for Colonoscopy Screening at the request of Dr. Steven Peoples for routine H&P. The patient has the following: ACTIVE PROBLEM LIST Gastroesophageal Reflux Disease Without Esophagitis Other Specified Disorder of Gallbladder Class 1 Obesity Essential Hypertension, Benign Dietary Counseling and Surveillance Abnormal Ekg Spondylolisthesis, Lumbar Region Body Mass Index 31.0-31.9, Adult Chronic Bilateral Low Back Pain Gastroesophageal Reflux Disease With Esophagitis Without Hemorrhage Vitamin D Deficiency Paraesophageal Hernia Subjective CHIEF COMPLAINT: Screening for colon cancer [Z12.11] The reason for this visit is to perform a comprehensive review of the patient's past medical history, assess their current health status and obtain any additional testing required based on anesthesia guidelines. We will also identify any potential anesthesia problems or contraindications to the planned procedure. HPI: Patient present to [facility] for the above procedure. Patient here for routine colonoscopy for colon cancer screening. Patient with hx of Hiatal Hernia repair in the past. Patient recently complains of constipation 3-4 times a week. Also complaint of nausea. Denies any vomiting or diarrhea with this. Denies any abdominal pain. Denies any melena or hematochezia. Patient denies any other problems at this time. Denies any family history of Colon cancer or other Gastric ca. Patient agreed to planned procedure. PAST MEDICAL HISTORY Diagnosis Date Acute deep vein thrombosis (DVT) of popliteal vein of left lower extremity (HCC) 06/2020 Eliquis x 3 months off now. After a fall Depression Dysphagia Essential hypertension, benign Generalized anxiety disorder GERD (gastroesophageal reflux disease) Hiatal hernia AARON (obstructive sleep apnea) mild -no CPAP Spondylolisthesis of lumbar region PAST SURGICAL HISTORY Procedure Laterality Date CAPSULE ENDOSCOPY SMALL BOWEL WITH EGD (HL,MM) 06/01/2015 COLONOSCOPY W/BIOPSY SINGLE/MULTIPLE 05/25/2015 EGD WITH BIOPSY(S) 05/27/2015 hiatal hernia; Dr. Killian EGD WITH BIOPSY(S) 04/10/2021 Dr. Saavedra LAMINECTOMY,LUMBAR 07/24/2015 L4-5 with facetectomy LAPS RPR PARAESPHGL HRNA INCL FUNDPLSTY W/MESH 08/27/2015 with anterior/posterior gastropexy; Dr. Skaggs LAPS SURG CHOLECYSTECTOMY W/CHOLANGIOGRAPHY 09/10/2008 nORMAL ioc LUMBAR SPINE FUSION COMBINED 05/07/2021 L4-5 w/iliac bone graft & facetectomy TOTAL ABDOMINAL HYSTERECT W/WO RMVL TUBE OVARY 10/07/2007 TX ECTOPIC W/O SALPING&/OOPHORECTOMY WRIST SURGERY HX Left 05/07/2007 fusion wrist-partial WRIST SURGERY HX Left 04/07/2006 fusion wrist-partial FAMILY HISTORY Problem Relation Age of Onset other (a fib) Mother Diabetes Mother other (HTn) Mother Coronary Artery Disease Father Heart Failure Father Diabetes Brother other (cardiac stents) Brother Heart Brother Heart Maternal Grandmother Cancer Maternal Grandfather Cancer Paternal Grandmother SOCIAL HISTORY: Social History Tobacco Use Smoking status: Former Current packs/day: 0.00 Types: Cigarettes Start date: 05/14/2002 Quit date: 11/12/2008 Years since quittin.8 Smokeless tobacco: Never Tobacco comments: 1 pack per week Vaping Use Vaping status: Former Substance Use Topics Alcohol use: Yes Alcohol/week: 7.0 standard drinks of alcohol Types: 7 Cans of Beer (12oz) per week Comment: socially-once weekly Drug use: Yes Types: Marijuana Comment: occ Prior to Admission medications as of 09/28/24 0843 Medication Sig Last Dose Taking DULoxetine (CYMBALTA) 30 mg capsule Take 1 capsule by mouth every afternoon. 09/26/2024 at 1200 Yes sucralfate (CARAFATE) 1 gram tablet TAKE 1 TABLET BY MOUTH TWICE DAILY. FOLLOW SLURRY INSTRUCTIONS. 09/21/2024 at [address] (PROTONIX) 40 mg tablet Take 1 tablet by mouth two times a day. 09/26/2024 at 0600 Yes buPROPion XL (WELLBUTRIN XL) 300 mg 24 hr tablet Take 300 mg by mouth once daily. 09/26/2024 at 1200 Yes Cholecalciferol, Vitamin D3, 50 mcg (2,000 unit) cap Take 1 capsule by mouth once daily. 09/26/2024 at 1200 Yes fluticasone (FLONASE) 50 mcg/actuation nasal spray Use 2 (TWO) sprays IN EACH NOSTRIL DAILY DIRECTED 09/27/2024 Yes fexofenadine HCl (BETTY ORAL) Take by mouth once daily. 09/26/2024 Yes losartan-hydroCHLOROthiazide (HYZAAR) 100-25 mg per tablet Take 1 tablet by mouth once daily. 09/26/2024 at 1200 Yes amlodipine besylate (AMLODIPINE ORAL) Take 10 mg by mouth once daily. 09/26/2024 at 1200 Yes cyclobenzaprine (FLEXERIL) 10 mg tablet Take 1 tablet by mouth three times daily as needed for muscle spasm. Patient not taking: Reported on 08/02/2024 polyethylene glycol 3350 (MIRALAX, GLYCOLAX) 17 gram/dose powder Use as directed for Miralax / Gatorade Bowel Prep Kit Patient not taking: Reported on 09/30/2021 Gatorade Sports Drink Use as directed for Miralax / Gatorade Bowel Prep Kit Bisacodyl (DULCOLAX) 5 mg tab Use as directed for Miralax / Gatorade Bowel Prep Kit Patient not taking: Reported on 09/30/2021 pregabalin (LYRICA) 150 mg capsule Take 1 capsule by mouth twice daily for 30 days. Patient not taking: Reported on 04/02/2022 METOPROLOL SR 100 MG 24 HR TAB Take 100 mg by mouth twice daily. Patient not taking: Reported on 04/02/2022 citalopram hydrobromide(CELEXA 40 MG TAB) Take one(1) tablet daily. 09/26/2024 at 1200 No medication comments found. ALLERGIES Allergen Reactions Kiwi Anaphylaxis Latex, Natural Rubb* Hives Tetracycline Vomiting Paroxetine Unknown Morphine Itching REVIEW OF SYSTEMS: PAIN ASSESSMENT: Pain Pain Level: 3 Acceptable level: 2 Pain Location: Abdomen Pain Assessment: Assessment Description: Pressure Duration: Intermittent Intervention/Comfort measure: Emotional Support/Reassurance Tool: Verbal (Numeric Rating or Visual Analog Scale) General: Denies fever, chills, and unexpected weight change. Neuro: Denies dizziness and headaches. Respiratory: Denies SOB. +AARON, +Former Smoker, +Marijuana user daily. Cardiovascular: Denies CP and palpitations. +HTN. GI: See HPI. : Denies dysuria. Endocrine: No history of diabetes or thyroid conditions. Hematology: Denies history of bleeding or clotting disorder. No known autoimmune disorders. Psych: Denies anxiety/depression. Musculoskeletal: Denies joint pain and swelling. Skin: Denies open sores and rashes. Objective PHYSICAL EXAM: VITALS: BP 153/101 Pulse 71 Temp (Src) 98 (Temporal) Resp 12 SpO2 96% O2 Therapy: Room Air General: NAD. Cooperative. Skin: Skin is warm, no rashes, and no open sores. HEENT: Normocephalic. Cardiovascular: Normal S1 & S2. No murmur. Lungs: CTA Bilaterally. No respiratory distress. Abdomen: Soft. Pos BS x4quad Extremities: No edema. Neurological: Alert and oriented to person, place, and time. Pulses: radial pulses +2 Diagnostic tests reviewed for today's visit: Lab Value Units Date High Low HB No results within date range. HCT No results within date range. WBC No results within date range. PLT No results within date range. NA No results within date range. K No results within date range. GLUC No results within date range. BUN No results within date range. CREAT No results within date range. PTSEC No results within date range. INR No results within date range. APTT No results within date range. ALT No results within date range. AST No results within date range. TBILI No results within date range. TSH No results within date range. Lab Value Units Date High Low HCGQT No results within date range. UHCG No results within date range. HCG, BODY* No results within date range. Lab Value Units Date High Low ABORHD No results within date range. ABSCREEN No results within date range. No results found for: HBA1C Assessment/Plan Screening for colon cancer [Z12.11] Patient has the following medical conditions which may affect az-operative course addressed in assessment and plan today. HTN- Managed by PCP and Controlled with meds. Former smoker- 1 pack per week x 3-4 weeks quit 30 years ago. Marijuana smoker - 1 joint a day. Obesity -BMI 32 AARON- Denies CPAP PLAN Planned Procedure: Colonoscopy Screening The Following Tests/Procedures Have Been Initiated: IV start and Maintenance fluid for the procedure. ANESTHESIA FINDINGS: Significant Anesthesia Considerations: None I spent a total of 25 minutes on the date of the service which included preparing to see the patient, [id number] patient care, completing clinical documentation, obtaining and/or reviewing separately obtained history, performing a medically appropriate examination, and counseling and educating the patient/family/caregiver. Planned Anesthetic: MAC Instructions Given to Patient: Patient given verbal preop instructions and voices comprehension and compliance. SIGNATURE: Mayank Corrales APRN.CNP PATIENT NAME: Francia Gama DATE: September 28, 2024 TIME: 8:51 AM PAGER/CONTACT #: [facility] 09-28-2024 History and physical note HISTORY AND PHYSICAL EXAMINATION SERVICE DATE: 09/28/2024 SERVICE TIME: 8:52 AM PRIMARY CARE PHYSICIAN: Julisa Cheung MD REASON FOR VISIT: Francia Gama is a 64 year old female who is scheduled for Colonoscopy Screening at the request of Dr. Steven Peoples for routine H&P. The patient has the following: ACTIVE PROBLEM LIST Gastroesophageal Reflux Disease Without Esophagitis Other Specified Disorder of Gallbladder Class 1 Obesity Essential Hypertension, Benign Dietary Counseling and Surveillance Abnormal Ekg Spondylolisthesis, Lumbar Region Body Mass Index 31.0-31.9, Adult Chronic Bilateral Low Back Pain Gastroesophageal Reflux Disease With Esophagitis Without Hemorrhage Vitamin D Deficiency Paraesophageal Hernia Subjective CHIEF COMPLAINT: Screening for colon cancer [Z12.11] The reason for this visit is to perform a comprehensive review of the patient's past medical history, assess their current health status and obtain any additional testing required based on anesthesia guidelines. We will also identify any potential anesthesia problems or contraindications to the planned procedure. HPI: Patient present to [facility] for the above procedure. Patient here for routine colonoscopy for colon cancer screening. Patient with hx of Hiatal Hernia repair in the past. Patient recently complains of constipation 3-4 times a week. Also complaint of nausea. Denies any vomiting or diarrhea with this. Denies any abdominal pain. Denies any melena or hematochezia. Patient denies any other problems at this time. Denies any family history of Colon cancer or other Gastric ca. Patient agreed to planned procedure. PAST MEDICAL HISTORY Diagnosis Date Acute deep vein thrombosis (DVT) of popliteal vein of left lower extremity (HCC) 06/2020 Eliquis x 3 months off now. After a fall Depression Dysphagia Essential hypertension, benign Generalized anxiety disorder GERD (gastroesophageal reflux disease) Hiatal hernia AARON (obstructive sleep apnea) mild -no CPAP Spondylolisthesis of lumbar region PAST SURGICAL HISTORY Procedure Laterality Date CAPSULE ENDOSCOPY SMALL BOWEL WITH EGD (HL,MM) 06/01/2015 COLONOSCOPY W/BIOPSY SINGLE/MULTIPLE 05/25/2015 EGD WITH BIOPSY(S) 05/27/2015 hiatal hernia; Dr. Killian EGD WITH BIOPSY(S) 04/10/2021 Dr. Saavedra LAMINECTOMY,LUMBAR 07/24/2015 L4-5 with facetectomy LAPS RPR PARAESPHGL HRNA INCL FUNDPLSTY W/MESH 08/27/2015 with anterior/posterior gastropexy; Dr. Giles NEAL SURG CHOLECYSTECTOMY W/CHOLANGIOGRAPHY 09/10/2008 [facility] LUMBAR SPINE FUSION COMBINED 05/07/2021 L4-5 w/iliac bone graft & facetectomy TOTAL ABDOMINAL HYSTERECT W/WO RMVL TUBE OVARY 10/07/2007 TX ECTOPIC W/O SALPING&/OOPHORECTOMY WRIST SURGERY HX Left 05/07/2007 fusion wrist-partial WRIST SURGERY HX Left 04/07/2006 fusion wrist-partial FAMILY HISTORY Problem Relation Age of Onset other (a fib) Mother Diabetes Mother other (HTn) Mother Coronary Artery Disease Father Heart Failure Father Diabetes Brother other (cardiac stents) Brother Heart Brother Heart Maternal Grandmother Cancer Maternal Grandfather Cancer Paternal Grandmother SOCIAL HISTORY: Social History Tobacco Use Smoking status: Former Current packs/day: 0.00 Types: Cigarettes Start date: 05/14/2002 Quit date: 11/12/2008 Years since quittin.8 Smokeless tobacco: Never Tobacco comments: 1 pack per week Vaping Use Vaping status: Former Substance Use Topics Alcohol use: Yes Alcohol/week: 7.0 standard drinks of alcohol Types: 7 Cans of Beer (12oz) per week Comment: socially-once weekly Drug use: Yes Types: Marijuana Comment: occ Prior to Admission medications as of 09/28/24 0843 Medication Sig Last Dose Taking DULoxetine (CYMBALTA) 30 mg capsule Take 1 capsule by mouth every afternoon. 09/26/2024 at 1200 Yes sucralfate (CARAFATE) 1 gram tablet TAKE 1 TABLET BY MOUTH TWICE DAILY. FOLLOW SLURRY INSTRUCTIONS. 09/21/2024 at [address] (PROTONIX) 40 mg tablet Take 1 tablet by mouth two times a day. 09/26/2024 at 0600 Yes buPROPion XL (WELLBUTRIN XL) 300 mg 24 hr tablet Take 300 mg by mouth once daily. 09/26/2024 at 1200 Yes Cholecalciferol, Vitamin D3, 50 mcg (2,000 unit) cap Take 1 capsule by mouth once daily. 09/26/2024 at 1200 Yes fluticasone (FLONASE) 50 mcg/actuation nasal spray Use 2 (TWO) sprays IN EACH NOSTRIL DAILY DIRECTED 09/27/2024 Yes fexofenadine HCl (BETTY ORAL) Take by mouth once daily. 09/26/2024 Yes losartan-hydroCHLOROthiazide (HYZAAR) 100-25 mg per tablet Take 1 tablet by mouth once daily. 09/26/2024 at 1200 Yes amlodipine besylate (AMLODIPINE ORAL) Take 10 mg by mouth once daily. 09/26/2024 at 1200 Yes cyclobenzaprine (FLEXERIL) 10 mg tablet Take 1 tablet by mouth three times daily as needed for muscle spasm. Patient not taking: Reported on 08/02/2024 polyethylene glycol 3350 (MIRALAX, GLYCOLAX) 17 gram/dose powder Use as directed for Miralax / Gatorade Bowel Prep Kit Patient not taking: Reported on 09/30/2021 Gatorade Sports Drink Use as directed for Miralax / Gatorade Bowel Prep Kit Bisacodyl (DULCOLAX) 5 mg tab Use as directed for Miralax / Gatorade Bowel Prep Kit Patient not taking: Reported on 09/30/2021 pregabalin (LYRICA) 150 mg capsule Take 1 capsule by mouth twice daily for 30 days. Patient not taking: Reported on 04/02/2022 METOPROLOL SR 100 MG 24 HR TAB Take 100 mg by mouth twice daily. Patient not taking: Reported on 04/02/2022 citalopram hydrobromide(CELEXA 40 MG TAB) Take one(1) tablet daily. 09/26/2024 at 1200 No medication comments found. ALLERGIES Allergen Reactions Kiwi Anaphylaxis Latex, Natural Rubb* Hives Tetracycline Vomiting Paroxetine Unknown Morphine Itching REVIEW OF SYSTEMS: PAIN ASSESSMENT: Pain Pain Level: 3 Acceptable level: 2 Pain Location: Abdomen Pain Assessment: Assessment Description: Pressure Duration: Intermittent Intervention/Comfort measure: Emotional Support/Reassurance Tool: Verbal (Numeric Rating or Visual Analog Scale) General: Denies fever, chills, and unexpected weight change. Neuro: Denies dizziness and headaches. Respiratory: Denies SOB. +AARON, +Former Smoker, +Marijuana user daily. Cardiovascular: Denies CP and palpitations. +HTN. GI: See HPI. : Denies dysuria. Endocrine: No history of diabetes or thyroid conditions. Hematology: Denies history of bleeding or clotting disorder. No known autoimmune disorders. Psych: Denies anxiety/depression. Musculoskeletal: Denies joint pain and swelling. Skin: Denies open sores and rashes. Objective PHYSICAL EXAM: VITALS: BP 153/101 Pulse 71 Temp (Src) 98 (Temporal) Resp 12 SpO2 96% O2 Therapy: Room Air General: NAD. Cooperative. Skin: Skin is warm, no rashes, and no open sores. HEENT: Normocephalic. Cardiovascular: Normal S1 & S2. No murmur. Lungs: CTA Bilaterally. No respiratory distress. Abdomen: Soft. Pos BS x4quad Extremities: No edema. Neurological: Alert and oriented to person, place, and time. Pulses: radial pulses +2 Diagnostic tests reviewed for today's visit: Lab Value Units Date High Low HB No results within date range. HCT No results within date range. WBC No results within date range. PLT No results within date range. NA No results within date range. K No results within date range. GLUC No results within date range. BUN No results within date range. CREAT No results within date range. PTSEC No results within date range. INR No results within date range. APTT No results within date range. ALT No results within date range. AST No results within date range. TBILI No results within date range. TSH No results within date range. Lab Value Units Date High Low HCGQT No results within date range. UHCG No results within date range. HCG, BODY* No results within date range. Lab Value Units Date High Low ABORHD No results within date range. ABSCREEN No results within date range. No results found for: HBA1C Assessment/Plan Screening for colon cancer [Z12.11] Patient has the following medical conditions which may affect az-operative course addressed in assessment and plan today. HTN- Managed by PCP and Controlled with meds. Former smoker- 1 pack per week x 3-4 weeks quit 30 years ago. Marijuana smoker - 1 joint a day. Obesity -BMI 32 AARON- Denies CPAP PLAN Planned Procedure: Colonoscopy Screening The Following Tests/Procedures Have Been Initiated: IV start and Maintenance fluid for the procedure. ANESTHESIA FINDINGS: Significant Anesthesia Considerations: None I spent a total of 25 minutes on the date of the service which included preparing to see the patient, [id number] patient care, completing clinical documentation, obtaining and/or reviewing separately obtained history, performing a medically appropriate examination, and counseling and educating the patient/family/caregiver. Planned Anesthetic: MAC Instructions Given to Patient: Patient given verbal preop instructions and voices comprehension and compliance. SIGNATURE: Mayank Corrales APRN.CNP PATIENT NAME: Francia Gama DATE: September 28, 2024 TIME: 8:51 AM PAGER/CONTACT #: documented in this encounter [facility] 09-28-2024 Surgery Surgical operation note BRIEF OPERATIVE / PROCEDURE NOTE LOG ID: [id number] SURGERY/PROCEDURE DATE: 09/28/2024 INCISION/PROCEDURE START TIME: 9:11 AM INCISION CLOSE/PROCEDURE END TIME: 9:42 AM SURGEON(S)/PROCEDURALIST(S) AND ZINC MINER(S): Steven Peoples MD - Proceduralist No Additional Staff SURGERY/PROCEDURE(S): colonoscopy ANESTHESIA: Monitored Anesthesia Care FINDINGS: good prep Normal digital exam Scope to cecum and terminal ileum- Mild diverticulosis Very sharply angulated sigmoid Submucosal lipoma near hepatic flexure ESTIMATED BLOOD LOSS: 0 ml SPECIMENS: None COMPLICATIONS: None CLOSURE TECHNIQUE: PRE-OP/PRE-PROCEDURE DIAGNOSIS: colon cancer screening POST-OP/POST-PROCEDURE DIAGNOSIS: Submucosal lipoma Diverticulosis Otherwise normal exam Patient was accompanied to the next level of care by a licensed practitioner from the surgical team pending completion of this brief op note (or operative note) SIGNATURE: Steven Peoples MD PATIENT NAME: Francia Gama DATE: September 28, 2024 TIME: 9:46 AM [facility] Work Phone: 09-28-2024 Surgical operatio n note BRIEF OPERATIVE / PROCEDURE NOTE LOG ID: [id number] SURGERY/PROCEDURE DATE: 09/28/2024 INCISION/PROCEDURE START TIME: 9:11 AM INCISION CLOSE/PROCEDURE END TIME: 9:42 AM SURGEON(S)/PROCEDURALIST(S) AND ZINC MINER(S): Steven Peoples MD - Proceduralist No Additional Staff SURGERY/PROCEDURE(S): colonoscopy ANESTHESIA: Monitored Anesthesia Care FINDINGS: good prep Normal digital exam Scope to cecum and terminal ileum- Mild diverticulosis Very sharply angulated sigmoid Submucosal lipoma near hepatic flexure ESTIMATED BLOOD LOSS: 0 ml SPECIMENS: None COMPLICATIONS: None CLOSURE TECHNIQUE: PRE-OP/PRE-PROCEDURE DIAGNOSIS: colon cancer screening POST-OP/POST-PROCEDURE DIAGNOSIS: Submucosal lipoma Diverticulosis Otherwise normal exam Patient was accompanied to the next level of care by a licensed practitioner from the surgical team pending completion of this brief op note (or operative note) SIGNATURE: Steven Peoples MD PATIENT NAME: Francia Gama DATE: September 28, 2024 TIME: 9:46 AM documented in this encounter [facility] 08-30-2024 History of Presen t illness Narrative Radiology Service Progress Note PATIENT NAME: Francia Gama DATE OF SERVICE: August 30, 2024 TIME: 9:40 AM PATIENT IDENTITY VERIFICATION COMPLETED USING TWO (2) IDENTIFIERS: Name and Date of confirmed by patient verbally. FALL SCREENING: Has the patient had 2 falls in the last year or 1 fall with injury or currently using an Ambulatory Assistive Device (Walker, Cane, Wheelchair, Crutches, etc.)? No PATIENT GENDER DATA: Female. status: : No status: NO. PATIENT RELEVANT IMPLANT DATA REVIEWED: Not Applicable PATIENT PRESENTS WITH AN IMPLANTABLE OR ATTACHED BLOW MOLDING MACHINE OPERATOR: No RADIOLOGY DEPARTMENT: General X-ray: Exam(s) Completed: GI/ Procedure(s): Upper GI with barium contrast PERIPHERAL IV DATA: Not applicable SIGNED BY: SHAQUILLE Portillo) August 30, 2024 9:40 AM documented in this encounter [facility] 08-30-2024 Note HNO ID: [id number] Author: SYLVIA WILSON RT (R) Service: Radiology Author Type: Technologist Type: Progress Notes Filed: 08/30/2024 09:40 Note Text: Radiology Service Progress Note PATIENT NAME: Francia Gama DATE OF SERVICE: August 30, 2024 TIME: 9:40 AM PATIENT IDENTITY VERIFICATION COMPLETED USING TWO (2) IDENTIFIERS: Name and Date of confirmed by patient verbally. FALL SCREENING: Has the patient had 2 falls in the last year or 1 fall with injury or currently using an Ambulatory Assistive Device (Walker, Cane, Wheelchair, Crutches, etc.)? No PATIENT GENDER DATA: Female. status: : No status: NO. PATIENT RELEVANT IMPLANT DATA REVIEWED: Not Applicable PATIENT PRESENTS WITH AN IMPLANTABLE OR ATTACHED BLOW MOLDING MACHINE OPERATOR: No RADIOLOGY DEPARTMENT: General X-ray: Exam(s) Completed: GI/ Procedure(s): Upper GI with barium contrast PERIPHERAL IV DATA: Not applicable SIGNED BY: SHAQUILLE Portillo) August 30, 2024 9:40 AM [facility] 08-17-2024 Telephone encounter Note Lm for return call to schedule procedure 08/31/[address] Awender. Deann Santos August 17, 2024 9:55 AM [facility] 08-17-2024 Miscellaneous Notes Lm for return call to schedule procedure 08/31/[address] Awender. Deann Santos August 17, 2024 9:55 AM documented in this encounter [facility] 08-08-2024 Telephone encounter Note Lm to schedule colonoscopy with Dr. Awender. Deann Santos August 08, 2024 3:53 PM [facility] 08-08-2024 Miscellaneous Notes Lm to schedule colonoscopy with Dr. Awender. Deann Santos August 08, 2024 3:53 PM documented in this encounter [facility] 08-02-2024 Telephone encounter Note Manometry scheduled for 10/12/2024 at 8am followed by EGD at 900. Prep/instructions given to patient at checkout. Kelsey Cobb LPN [facility] 08-02-2024 Note Addended by: KELSEY COBB on: 08/02/2024 02:30 PM Modules accepted: Orders [facility] 08-02-2024 Miscellaneous Notes Addended by: KELSEY COBB on: 08/02/2024 02:30 PM Modules accepted: Orders documented in this encounter [facility] 08-02-2024 Miscellaneous Notes Manometry scheduled for 10/12/2024 at 8am followed by EGD at 900. Prep/instructions given to patient at checkout. Kelsey Cobb LPN documented in this encounter [facility] 08-02-2024 Instructions Mitra Saavedra MD - 08/02/2024 11:59 AM EDT COLONOSCOPY BOWEL PREPARATION INSTRUCTIONS MiraLAX Your doctor has scheduled you for a colonoscopy. To have a successful colonoscopy, you must have a clean colon, that is empty. A clean colon allows your doctor to see the entire colon & diagnose issues like polyps or cancer. For doctors, a clean colon is like driving on a maxx day; a dirty colon like driving in a storm. It is very important that you follow these instructions exactly, or your colonoscopy may not be as effective, could be canceled, and you may need to do the bowel prep and colonoscopy again. TRANSPORTATION REQUIREMENTS You are receiving IV sedation. For your safety, a responsible adult escort must accompany you to and from your procedure: Your adult escort MUST be present with you at check-in for your colonoscopy. Your adult escort MUST remain in the endoscopy area until you are discharged. Your adult escort MUST transport you home once you are discharged. You are NOT allowed to operate any form of transportation (i.e. drive a car, bicycle, etc) or leave the Endoscopy Center ALONE. It is not safe to do so. If you cannot meet these requirements, your procedure will be canceled. MEDICATION REQUIREMENTS For your safety, certain medications will need to be stopped or adjusted before you can have your procedure: BLOOD THINNERS: If you take blood thinners, such as Coumadin (warfarin), Plavix (clopidogrel), Ticlid (ticlopidine hydrochloride), Agrylin (anagrelide), Xarelto (Rivaroxaban), Pradaxa (Dabigatran), Eliquis (Apixaban), or Effient (Prasugrel), contact the physician who is prescribing these medications at least 2 weeks prior to your procedure to discuss any necessary adjustments. DIABETES: If you take medications for diabetes, your dosage may need to be adjusted. If you are being treated for diabetes with insulin, diabetic pills, or other injectable medications do not take your REGULAR dose after midnight on the day of your procedure. If you are taking any other types of insulin such as Lantus, Humalog, NPH (long-acting insulin), or 70/30 insulin, take half your normal dose the day before your procedure. DIABETES/WEIGHT MANAGEMENT: If you take medications for weight-loss, your dosage may need to be adjusted Contact the doctor who prescribes this medication for further instructions. If you take medications for weight-loss like semaglutide (Ozempic, Wegovy, Rybelsus), dulaglutide (Trulicity), liraglutide (Victoza, Saxenda), exenatide (Byetta, Bydureon), or lixisenatide (Adylyxin), stop your medication 1 week prior to your procedure. If you take medications like canagliflozin (Invokana), dapagliflozin (Farxiga, Forxiga), empagliflozin (Jardiance), or ertugliflozin (Steglatro), stop your medication 1 day prior to your procedure. IRON: If you take iron pills, STOP them 1 week BEFORE your procedure, may resume after. OTHER MEDS: May take all other medications (including aspirin, antibiotics, water pills / diuretics like Lasix or Metolozone, blood pressure meds, etc.) at their usual scheduled time with water. DIET REQUIREMENTS The day before your colonoscopy, you may have a clear liquid diet (see below). The day of your colonoscopy, you may continue a clear liquid diet until 3 hours before your colonoscopy. Within 3 hours of your colonoscopy, take only any medications (as above) with a sip of water. Clear Liquid Diet Broth (chicken, beef or vegetable broth or bullion. Just the broth, no solids). Water Coffee or Tea (NO milk or creamer), but sugar and sugar substitutes are allowed. Clear liquids including clear, yellow, green, blue (NO red, NO orange, NO purple) Sodas / soft drinks; Gatorade or other sports drinks Fruit juice (strained; no-pulp); Silvestre-Aid or flavored drinks Plain Jell-O or other gelatins Popsicles or hard candy Bowel prep can work differently from person to person. Some people's bowels move slowly and they may need different instructions. Please see your doctor in office or virtually for personalized bowel prep instructions if you have: BOWEL PREPARATION (MIRALAX/GATORADE) Split Dosing Bowel Prep: This means drinking your bowel prep in two doses. Split dosing helps clean your colon better and makes it less likely that your procedure will be canceled. You will need to purchase the following (no prescriptions are needed): 64 ounces Gatorade, Propel, Crystal Lite or other noncarbonated clear liquid sports drink (NOT red, orange, or purple). Diabetic patients buy sugar-free, e.g. Gatorade G2 4 Dulcolax laxative tablets containing 5mg bisacodyl each (do not buy the stool softener) 8.3 oz MiraLAX (238g) powder or generic polyethylene glycol 3350 (find in laxative aisle) The day before your colonoscopy mix 64 oz of the sports drink with 8.3 oz MiraLAX (238 g) in a pitcher. Stir or shake until MiraLAX completely dissolved. Chill if desired. On the evening before your colonoscopy: 5 PM take 4 Dulcolax laxative tablets with water by mouth. 6 PM drink the first half of the Gatorade/MiraLAX solution Drink one 8-ounce glass every 15 minutes. Six hours before your colonoscopy, drink the second half of the solution. Drink one 8-ounce glass every 15 minutes. You may continue a clear liquid diet until 3 hours before your colonoscopy. Bowel prep can work differently from person to person. Some people's bowels move slowly and they may need different instructions. Please see your doctor in office or virtually for personalized bowel prep instructions if you have: Medical condition that needs special accommodations Had a poor bowel prep results or failed bowel prep attempts in the past. Had difficulty with anesthesia during the procedure. FREQUENTLY ASKED QUESTIONS Q: What if I suffer from constipation? A: Recommend taking extra laxatives to resolve your constipation days prior to entering the bowel prep day. Q: What if have had prior poor preps results in past? A: Contact your physician as you will likely need additional bowel prep instructions. Q: What if I have motility issues like Parkinson's, MS (multiple sclerosis), wheelchair dependent, etc.? or on medications that slow colonic transit times (narcotics, gabapentin, anticholinergic medications etc.) A: Contact your physician as you will likely need extra time and additional laxatives to complete your bowel prep. Q: What if I cannot drink large volume of liquid? A: Start your prep 2-3 hours earlier to allow yourself more time to complete the entire prep. Q: What if I had bariatric surgery? Do I still have to complete the entire prep? A: Yes, gastric bypass surgery involves the stomach & small bowel. You may need to drink smaller amounts, slower (may need more time to complete your bowel prep). Gastric bypass does not alter the length of your colon so you will need to complete the entire bowel prep, it may just take longer time to complete it. Q: What if I am on dialysis? A: Please consult your foot cutter prior to scheduling to get instructions pertinent to you. In general, dialysis patients take the [employer] bowel prep and have the procedure same day of their dialysis (colonoscopy in AM, dialysis in PM). Q: How do I know if something is considered as clear liquid diet? A: If you can pour it in a glass and you can see through it, it is considered clear liquid Q: Can I eat nuts, seeds, beans, popcorn, dried fruits, vegetables & fruits that have skin peel? A: No, you will need to not eat these items starting 3 days prior to procedure. Q: Can I take Uber/Lyft/taxi/bus home? A: An adult MUST be present with you at check-in for your colonoscopy and remain in the endoscopy area until you are discharged. You can take Uber home only if this adult escort is with you at check in, remain in the endoscopy area until you are discharged, and takes the Uber with you to home. Q: Can I sleep it off here and drive myself home? A: No, you must have an adult with you at time of procedure check in, remain in the endoscopy center during your procedure, and drive you home. You cannot drive a vehicle after your procedure the rest of the day. Q: What if I can't finish my bowel prep? A: If you cannot complete your entire bowel prep, there is high likelihood that your colonoscopy will need to be rescheduled due to inadequate prep quality. documented in this encounter [facility] 08-02-2024 Note HNO ID: [id number] Author: MITRA SAAVEDRA MD Service: ? Author Type: Physician Type: Progress Notes Filed: 08/02/2024 12:44 Note Text: SURGICAL SERVICES HISTORY AND PHYSICAL EXAMINATION SERVICE DATE: 08/02/2024 SERVICE TIME: 11:44 AM PRIMARY CARE PHYSICIAN: Julisa Cheung MD SUBJECTIVE CHIEF COMPLAINT: hernia HISTORY OF PRESENT ILLNESS: Ms. Gama is a 63 year old female with a PMH of HTN (amlodipine, losartan), anxiety, depression (Wellbutrin), HLD, obesity (35.19--BMI 31.52), chronic lower back pain/spinal stenosis, GERD (Omeprazole and Carafate), LE DVT (x1 in 06/26 after a fall; on Eliquis 3 months) who presents for discussion of recurrent paraesophageal hernia. Today she reports that two months ago she was evaluated at [facility] due to abdominal pain. She underwent CT scan which demonstrated inflammation and a larger hernia. I, unfortunately, do not have access to these images. She states that her symptoms are more severe not than they were 3 years ago. She experiences constant substernal burning and nausea, intermittent bleaching, and regurgitation and emesis after eating and this occurs several times per month. She has rare dysphagia. She remains on Carafate and Prilosec 40 mg BID. Despite taking these medications she continues to have symptoms. I last saw her in clinic on 04/29/2021. Per my last clinic note: Workup: - UGI (01/30/21): moderate-sized hiatal hernia. - GES: WNL - EGD: reflux esophagitis, duodenitis, disrupted fundoplication with recurrent hiatal hernia - Pathology: Benign gastric mucosa with features of very mild reactive gastropathy. Duodenum, biopsy - No pathologic abnormalities. Esophagus, biopsy - Benign squamous mucosa showing no pathologic abnormalities. She endorses symptoms of dysphagia, heartburn, and chest pain which began 1 year ago and has progressively worsened with intake of solids - she also endorses regurgitation, belching, and substernal burning. She reportsthings getting stuck in my throat and it is difficult to swallow. Symptoms of heartburn began approximately 8 months ago at which time she began taking Prilosec daily. She endorses a 6 month history of abdominal pain/epigastric burning. She endorses intermittent nausea with oral intake (of note UGI from 10/2015 after Rosenda demonstrated a large amount of food in the stomach). QOL score today is 40. She endorses lack of appetite. She underwent laparoscopic hiatal hernia repair (large type 3) with Rosenda fundoplication on 08/27/15 due to chronic anemia and Jean's ulcers thought to be due to her large hiatal hernia. She has had good results with no symptoms of anemia, heartburn or regurgitation since that time - until about 8-12 months ago. She lost 40 pounds surrounding the time of hernia repair, but has regained that weight and remains stable around 190-203 pounds. Social Hx: former smoker who quit in 2011 with no relapses; she drinks 6 beers per week; she uses recreational marijuana (one bowel per day); she denies use of other drugs. She works at [employer]. She lives with her daughter Maria L (works at [employer]) PSHx: lumbar laminectomy (L4/5), lap CCx, paraesophageal hernia repair (2014 w/ Dr. Skaggs), ANNA, left wrist fusion, ectopic PAST MEDICAL HISTORY: PAST MEDICAL HISTORY Diagnosis Date Acute deep vein thrombosis (DVT) of popliteal vein of left lower extremity (HCC) 06/2020 Eliquis x 3 months off now. After a fall Depression Dysphagia Essential hypertension, benign Generalized anxiety disorder GERD (gastroesophageal reflux disease) Hiatal hernia AARON (obstructive sleep apnea) mild -no CPAP Spondylolisthesis of lumbar region PAST SURGICAL HISTORY: PAST SURGICAL HISTORY Procedure Laterality Date CAPSULE ENDOSCOPY SMALL BOWEL WITH EGD (HL,MM) 06/01/2015 COLONOSCOPY W/BIOPSY SINGLE/MULTIPLE 05/25/2015 EGD TRANSORAL BIOPSY SINGLE/MULTIPLE 05/27/2015 hiatal hernia; Dr. Killian EGD WITH BIOPSY(S) 04/10/2021 Dr. Saavedra LAMINECTOMY,LUMBAR 07/24/2015 L4-5 with facetectomy LAPS RPR PARAESPHGL HRNA INCL FUNDPLSTY W/MESH 08/27/2015 with anterior/posterior gastropexy; Dr. Skaggs LAPS SURG CHOLECYSTECTOMY W/CHOLANGIOGRAPHY 09/10/2008 nORMAL ioc TOTAL ABDOMINAL HYSTERECT W/WO RMVL TUBE OVARY 10/07/2007 TX ECTOPIC W/O SALPINGAND/OOPHORECTOMY WRIST SURGERY HX Left 05/07/2007 fusion wrist-partial WRIST SURGERY HX Left 04/07/2006 fusion wrist-partial FAMILY HISTORY: FAMILY HISTORY Problem Relation Age of Onset other (a fib) Mother Diabetes Mother other (HTn) Mother Coronary Artery Disease Father Heart Failure Father Diabetes Brother other (cardiac stents) Brother Heart Brother Heart Maternal Grandmother Cancer Maternal Grandfather Cancer Paternal Grandmother SOCIAL HISTORY: Social History Tobacco Use Smoking status: Former Current packs/day: 0.00 (more content not included)... [facility] 08-02-2024 History of Presen t illness Narrative SURGICAL SERVICES HISTORY AND PHYSICAL EXAMINATION SERVICE DATE: 08/02/2024 SERVICE TIME: 11:44 AM PRIMARY CARE PHYSICIAN: Julisa Cheung MD SUBJECTIVE CHIEF COMPLAINT: hernia HISTORY OF PRESENT ILLNESS: Ms. Gama is a 63 year old female with a PMH of HTN (amlodipine, losartan), anxiety, depression (Wellbutrin), HLD, obesity (35.19--BMI 31.52), chronic lower back pain/spinal stenosis, GERD (Omeprazole and Carafate), LE DVT (x1 in 06/26 after a fall; on Eliquis 3 months) who presents for discussion of recurrent paraesophageal hernia. Today she reports that two months ago she was evaluated at [facility] due to abdominal pain. She underwent CT scan which demonstrated inflammation and a larger hernia. I, unfortunately, do not have access to these images. She states that her symptoms are more severe not than they were 3 years ago. She experiences constant substernal burning and nausea, intermittent bleaching, and regurgitation and emesis after eating and this occurs several times per month. She has rare dysphagia. She remains on Carafate and Prilosec 40 mg BID. Despite taking these medications she continues to have symptoms. I last saw her in clinic on 04/29/2021. Per my last clinic note: Workup: - UGI (01/30/21): moderate-sized hiatal hernia. - GES: WNL - EGD: reflux esophagitis, duodenitis, disrupted fundoplication with recurrent hiatal hernia - Pathology: Benign gastric mucosa with features of very mild reactive gastropathy. Duodenum, biopsy - No pathologic abnormalities. Esophagus, biopsy - Benign squamous mucosa showing no pathologic abnormalities. She endorses symptoms of dysphagia, heartburn, and chest pain which began 1 year ago and has progressively worsened with intake of solids - she also endorses regurgitation, belching, and substernal burning. She reportsthings getting stuck in my throat and it is difficult to swallow. Symptoms of heartburn began approximately 8 months ago at which time she began taking Prilosec daily. She endorses a 6 month history of abdominal pain/epigastric burning. She endorses intermittent nausea with oral intake (of note UGI from 10/2015 after Rosenda demonstrated a large amount of food in the stomach). QOL score today is 40. She endorses lack of appetite. She underwent laparoscopic hiatal hernia repair (large type 3) with Rosenda fundoplication on 08/27/15 due to chronic anemia and Jean's ulcers thought to be due to her large hiatal hernia. She has had good results with no symptoms of anemia, heartburn or regurgitation since that time - until about 8-12 months ago. She lost 40 pounds surrounding the time of hernia repair, but has regained that weight and remains stable around 190-203 pounds. Social Hx: former smoker who quit in 2011 with no relapses; she drinks 6 beers per week; she uses recreational marijuana (one bowel per day); she denies use of other drugs. She works at [employer]. She lives with her daughter Maria L (works at [employer] [place]) PSHx: lumbar laminectomy (L4/5), lap CCx, paraesophageal hernia repair (2014 w/ Dr. kSaggs), ANNA, left wrist fusion, ectopic PAST MEDICAL HISTORY: PAST MEDICAL HISTORY Diagnosis Date Acute deep vein thrombosis (DVT) of popliteal vein of left lower extremity (HCC) 06/2020 Eliquis x 3 months off now. After a fall Depression Dysphagia Essential hypertension, benign Generalized anxiety disorder GERD (gastroesophageal reflux disease) Hiatal hernia AARON (obstructive sleep apnea) mild -no CPAP Spondylolisthesis of lumbar region PAST SURGICAL HISTORY: PAST SURGICAL HISTORY Procedure Laterality Date CAPSULE ENDOSCOPY SMALL BOWEL WITH EGD (HL,MM) 06/01/2015 COLONOSCOPY W/BIOPSY SINGLE/MULTIPLE 05/25/2015 EGD TRANSORAL BIOPSY SINGLE/MULTIPLE 05/27/2015 hiatal hernia; Dr. Killian EGD WITH BIOPSY(S) 04/10/2021 Dr. Saavedra LAMINECTOMY,LUMBAR 07/24/2015 L4-5 with facetectomy LAPS RPR PARAESPHGL HRNA INCL FUNDPLSTY W/MESH 08/27/2015 with anterior/posterior gastropexy; Dr. Skaggs LAPSergio SURG CHOLECYSTECTOMY W/CHOLANGIOGRAPHY 09/10/2008 nORMAL ioc TOTAL ABDOMINAL HYSTERECT W/WO RMVL TUBE OVARY 10/07/2007 TX ECTOPIC W/O SALPING&/OOPHORECTOMY WRIST SURGERY HX Left 05/07/2007 fusion wrist-partial WRIST SURGERY HX Left 04/07/2006 fusion wrist-partial FAMILY HISTORY: FAMILY HISTORY Problem Relation Age of Onset other (a fib) Mother Diabetes Mother other (HTn) Mother Coronary Artery Disease Father Heart Failure Father Diabetes Brother other (cardiac stents) Brother Heart Brother Heart Maternal Grandmother Cancer Maternal Grandfather Cancer Paternal Grandmother SOCIAL HISTORY: Social History Tobacco Use Smoking status: Former Current packs/day: 0.00 Types: Cigarettes Start date: 05/14/2002 Quit date: 11/12/2008 Years since quittin.7 Smokeless tobacco: Never Tobacco comments: 1 pack per week Vaping Use Vaping status: Former Substance Use Topics Alcohol use: Yes Alcohol/week: 7.0 standard drinks of alcohol Types: 7 Cans of Beer (12oz) per week Comment: socially-once weekly Drug use: Yes Types: Marijuana Comment: occ MEDICATIONS: Current Outpatient Medications Medication Sig DULoxetine (CYMBALTA) 30 mg capsule Take 1 capsule by mouth every afternoon. sucralfate (CARAFATE) 1 gram tablet TAKE 1 TABLET BY MOUTH TWICE DAILY. FOLLOW SLURRY INSTRUCTIONS. buPROPion XL (WELLBUTRIN XL) 300 mg 24 hr tablet Take 300 mg by mouth once daily. Cholecalciferol, Vitamin D3, 50 mcg (2,000 unit) cap Take 1 capsule by mouth once daily. fluticasone (FLONASE) 50 mcg/actuation nasal spray Use 2 (TWO) sprays IN EACH NOSTRIL DAILY DIRECTED fexofenadine HCl (BETTY ORAL) Take by mouth once daily. losartan-hydroCHLOROthiazide (HYZAAR) 100-25 mg per tablet Take 1 tablet by mouth once daily. amlodipine besylate (AMLODIPINE ORAL) Take 10 mg by mouth once daily. cyclobenzaprine (FLEXERIL) 10 mg tablet Take 1 tablet by mouth three times daily as needed for muscle spasm. (Patient not taking: Reported on 08/02/2024) polyethylene glycol 3350 (MIRALAX, GLYCOLAX) 17 gram/dose powder Use as directed for Miralax / Gatorade Bowel Prep Kit (Patient not taking: Reported on 09/30/2021 ) Gatorade Sports Drink Use as directed for Miralax / Gatorade Bowel Prep Kit Bisacodyl (DULCOLAX) 5 mg tab Use as directed for Miralax / Gatorade Bowel Prep Kit (Patient not taking: Reported on 09/30/2021 ) pregabalin (LYRICA) 150 mg capsule Take 1 capsule by mouth twice daily for 30 days. (Patient not taking: Reported on 04/02/2022) METOPROLOL SR 100 MG 24 HR TAB Take 100 mg by mouth twice daily. (Patient not taking: Reported on 04/02/2022 ) citalopram hydrobromide(CELEXA 40 MG TAB) Take one(1) tablet daily. No current facility-administered medications for this visit. ALLERGIES: ALLERGIES Allergen Reactions Kiwi Anaphylaxis Latex, Natural Rubb* Hives Tetracycline Vomiting Paroxetine Unknown Morphine Itching COMPLETE REVIEW OF SYSTEMS: Review of Systems Constitutional: Negative for chills, diaphoresis, fever and malaise/fatigue. HENT: Negative for congestion, hearing loss, nosebleeds, sinus pain, sore throat and tinnitus. Eyes: Negative for blurred vision, double vision, pain and redness. Respiratory: Negative for cough, hemoptysis, sputum production, shortness of breath and wheezing. Cardiovascular: Positive for chest pain (substernal burning). Negative for palpitations, orthopnea, leg swelling and PND. Gastrointestinal: Positive for abdominal pain, heartburn and nausea. Negative for blood in stool, constipation, diarrhea and vomiting. Genitourinary: Negative for dysuria, frequency, hematuria and urgency. Musculoskeletal: Positive for back pain. Negative for falls, joint pain, myalgias and neck pain. Skin: Negative for itching and rash. Neurological: Negative for dizziness, speech change, focal weakness, seizures, loss of consciousness, weakness and headaches. Endo/Heme/Allergies: Does not bruise/bleed easily. Psychiatric/Behavioral: Positive for depression. Negative for hallucinations, memory loss, substance abuse and suicidal ideas. The patient is nervous/anxious. The patient does not have insomnia. OBJECTIVE PHYSICAL EXAM: BP 160/82 Pulse 73 Ht 5' 5 (1.65m) Wt 189 lb 6.4 oz (85.9kg) BMI 31.52 kg/(m^2). Physical Exam Vitals reviewed. Constitutional: Appearance: Normal appearance. She is obese. HENT: Head: Normocephalic and atraumatic. Nose: Nose normal. Eyes: General: No scleral icterus. Extraocular Movements: Extraocular movements intact. Conjunctiva/sclera: Conjunctivae normal. Pupils: Pupils are equal, round, and reactive to light. Cardiovascular: Rate and Rhythm: Normal rate. Pulmonary: Effort: Pulmonary effort is normal. No respiratory distress. Skin: General: Skin is warm and dry. Coloration: Skin is not jaundiced or pale. Neurological: Mental Status: She is alert and oriented to person, place, and time. Psychiatric: Mood and Affect: Mood normal. Behavior: Behavior normal. DATA: Diagnostic tests reviewed for today's visit: EMR reviewed Plan ASSESSMENT AND PLAN Francia Gama is a 63 year old female with a PMH as noted above who presents with Paraesophageal hernia and GERD. 1. Gastroesophageal reflux disease, unspecified whether esophagitis present - ICD9: 530.81, ICD10: K21.9 (primary diagnosis) - Discussed lifestyle modifications including losing weight, limiting caffeine, no meals three hours before sleep, and head of bed elevation - Begin treatment with Protonix 40 mg BID - stop Omeprazole and try Protonix - Setup for EGD - Will obtain CT scan images from [facility] - XR UPPER GI ROUTINE DOUBLE CONTRAST/AIR - EGD DIAGNOSTIC 2. Paraesophageal hernia - ICD9: 553.3, ICD10: K44.9 - Will obtain workup and then bring back for consenting for surgery. She will need to lose weight to a BMI of 30 or less prior to surgery. - MANOMETRY ESOPHAGEAL 3. Hypertension, unspecified type - ICD9: 401.9, ICD10: I10 - Continue current medical mangement 4. Screening for colon cancer - ICD9: V76.51, ICD10: Z12.11 - In need for screening colonoscopy. Requesting Dr. Peoples - COLONOSCOPY DIAGNOSTIC 5. Class 1 obesity with serious comorbidity and body mass index (BMI) of 31.0 to 31.9 in adult, unspecified obesity type - ICD9: 278.00, V85.31, ICD10: E66.9, Z68.31 - Must achieve a weight of 180 pounds or less prior to PEHR revision/repair Medical Decision Making: Problems: Moderate: 2+ stable chronic illnesses Data: Unique test result(s) reviewed: 3+ Unique test(s) ordered: 3+ Discussed management or test w/ external physician/QHCP/source Risk: Moderate: Decision on elective major surgery w/o risk factors and Drug management Medical Decision Making Level: 4 - Moderate SIGNATURE: Mitra Saavedra MD PATIENT NAME: Francia Gama DATE: August 02, 2024 TIME: 11:44 AM PAGER/CONTACT #: [phone] documented in this encounter [facility] 05-25-2024 Telephone encounter Note VM received - patient requested to cancel appointment due to transportation issues - appointment cancelled. LVM for patient to reschedule appointment - requested patient call back to reschedule appointment. [employer] message sent to patient. [facility] 05-25-2024 Miscellaneous Notes VM received - patient requested to cancel appointment due to transportation issues - appointment cancelled. LVM for patient to reschedule appointment - requested patient call back to reschedule appointment. MyChart message sent to patient. documented in this encounter [facility] 12-03-2022 Discharge summary Note Date/Time December 03, 2022 9:24pm [facility] Medical Records Department [address] [place] [id number] Emergency Department Summary 12/03/22 MR#: [id number] Acct: [id number] Name: FRANCIA GAMA Rep #:[id number] : 1960 62 From: Bruno Wiley MD PCP: Dr. Van Cheung MD Status: REG ER Location: ED HPI HPI - Fall History of Present Illness Chief Complaint: Fall Informant: patient Narrative Narrative: Patient had a mechanical fall at home. She was walking her dog. One of her other dogs ran out through the door and the dog that was on the the leash she was holding took off running and knocked her over. She landed on her buttock and hand. She did roll back and hit the head. She did not lose consciousness. She has mild soreness just at the posterior occiput where she hit but no diffuseheadache. She remembers the event and her grandson talking to her right away. She has had no nausea vomiting. She is not on any blood thinners. She is acting normally per her daughter that is in the room. Her primary complaint is pain over the distal left small finger. PFSH PFS Medical History Acute frontal sinusitis, unspecified Fatigue Hypertension Severe headache Home Medications amlodipine 10 mg tablet 10 mg PO DAILY 06/16/20 [History Last Taken Unknown] bupropion HCl 300 mg 24 hr tablet, extended release 300 mg PO DAILY 06/16/20 [History Last Taken Unknown] citalopram 40 mg tablet 40 mg PO DAILY 06/16/20 [History Last Taken Unknown] metoprolol tartrate 100 mg tablet 100 mg PO BID 06/16/20 [History Last Taken Unknown] omeprazole 20 mg capsule,delayed release 20 mg PO DAILY 07/24/21 [History Last Taken Unknown] hydrocodone-acetaminophen 5-325mg 5mg-325mg 1 tab PO Q6H PRN PRN Pain 3 days #10TABLETS 12/03/22 [Rx Last Taken Unknown] Allergy/AdvReac Type Severity Reaction Status Date / Time morphine Allergy Itching Verified 12/03/22 19:28 paroxetine [From Paxil] Allergy Unknown Verified 12/03/22 19:28 Tetracyclines Allergy Unknown Verified 12/03/22 19:28 Family History Other Diabetes Hypertension Surgical History H/O section H/O wrist surgery History of back surgery History of hysterectomy History of repair of hiatal hernia Hx of cholecystectomy Hx of tonsillectomy Social History Smoking Status: Never smoker alcohol intake: never ROS ROS ED Constitutional Constitutional ED: Denies chills or fever(s) Eyes Eyes: Denies blurry vision, change in vision or diplopia ENT ENT ED: Denies rhinorrhea or sore throat Cardiovascular Cardiovascular: Denies chest pain or palpitations Respiratory/Chest Respiratory/Chest: Denies cough or dyspnea Gastrointestinal Gastrointestinal: Denies nausea or vomiting Musculoskeletal Musculoskeletal: Reports arthralgias; Denies myalgias or neck pain Integumentary Denies Abrasions or rash Neurologic Neurologic: Denies paresthesias or weakness Psychiatric Psychiatric: Denies anxiety Endocrine Endocrinology: Denies polydipsia or polyuria Hematologic/Lymphatic Hematologic/Lymphatic: Denies lymphadenopathy EXAM Physical Exam Narrative Exam Narrative: Patient is awake alert appropriate. She carries on normal conversation. She very clear informant. HEENT shows no sign of head injury. I do not feel any swollen areas. She has little tenderness of the occiput but no swelling laceration step-off or crepitance. No bleeding from the ear. No facial tenderness or asymmetry. Neck shows no tenderness no pain with motion. Lungs are clear bilaterally. She takes good deep breaths without pain. No tenderness. Heart is regular. No murmur gallop or rub is noted. Abdomen is soft and nontender Back shows no CVA or suprapubic tenderness Extremity she landed on the left buttock but really no tenderness or pain with range of motion of that leg or hip. No shortening. Her left hand does show some swelling and early ecchymosis around the distal aspect of the left fifth metacarpal. This is her primary area of pain. No deformity is noted. Capillary refill is normal. Patient is awake alert and appropriate Skin shows contusion as above but no other acute injury. Const Vital Signs: 12/03/22 19:25 12/03/22 20:51 12/03/22 22:30 Temperature 97.2 F L Temperature Source Temporal Pulse Rate 92 77 Respiratory Rate 15 18 Respiratory Effort Normal Non-Labored Respiratory Depth Normal Respiratory Pattern Normal Blood Pressure 193/103 H 172/93 H Blood Pressure Mean 133 119 Pulse Ox 100 98 Oxygen Delivery Method Room Air Room Air MDM MDM MDM Narrative Medical decision making narrative: My independent interpretation of the patient's three-view x-ray of the left handshows prior surgical changes which are known. I am suspicious that there may wero distal fifth metacarpal fracture that has not really displaced. This is consistent with her area of pain and swelling. Final reading by radiology showssoft tissue swelling in that area they recommend an MRI which can be done in thefuture. Procedure: Ulnar gutter splint: We discussed with the patient that my interpretation does varies from radiology's. But I also have the advantage of knowing where it is swollen painful and tender. She was placed in a 3 inch x 12 inch fiberglass ulnar gutter splint. I could not do dorsal angulation of the wrist as I normally would due to her partial fusion from prior surgery. This was gently Stephen wrap inplace. We let this hardened. I then checked her afterwards and she has normal capillary refill and can move the tips of those fingers. Normal sensation. We discussed that she should follow-up. She will see her hand surgeon, Dr. Taco hairston at [facility]. I will try to get a copy of her images on a CD so she can take with her. I explained that they would likely do a repeat x-ray and this may define the injury more and could show a fracture as I suspect. Radiography Diagnostic Testing: Clinical Impression(s) from Imaging Studies Hand X-Ray 12/03/22 19:35 IMPRESSION: Focal soft tissue swelling medial to the fifth metacarpal phalangeal joint without evidence for associated fracture or dislocation. MRI would be helpful to exclude focal tendon or ligamentous injury Electronically Signed: Tj Keith MD at 19:52 EST , Procedures Upper Extremity Splints Upper Extremity Splint: Orthoglass and Ulnar gutter Splint Fabrication: Fabricated Location: Left (See MDM) Discharge Plan Triage Chief Complaint: Fall ED Provider: Bruno Wiley Dx/Rx/DC Orders Clinical Impression: Fall at home, Closed fracture of fifth metacarpal bone of left hand Instructions: ED Closed Hand Fracture (Adult) Prescriptions: New hydrocodone-acetaminophen [hydrocodone-acetaminophen] 5-325 mg tablet 1 tab PO Q6H PRN PRN (Reason: Pain) 3 Days Qty: 10 0RF No Action citalopram 40 mg tablet 40 mg PO DAILY Label Comments: take 1 tablet by mouth once daily metoprolol tartrate 100 MG tablet 100 mg PO BID amlodipine 10 MG tablet 10 mg PO DAILY bupropion HCl 300 MG tablet extended release 24 hr 300 mg PO DAILY omeprazole 20 mg capsule,delayed release(DR/EC) 20 mg PO DAILY Primary Care Provider: aVn Cheung Referrals: Van Cheung MD [Primary Care Provider] - Hermann España MD [Non-Staff] - 1 Week Disposition Disposition: Home, Self Care What to do if you have Problems For any increased pain, shortness of breath, bleeding, nausea or vomiting, chestpain, or any unexpected problems, contact your Primary Care Provider. Call [facility] ([phone]) or report to the closest Emergency Room. Call 911 if necessary. 12/03/222258 <Electronically signed by Bruno Wiley MD> Cosigner Signature (if applicable): CC: Dr. Van Cheung MD ~ Signed [facility] Work Phone: [phone]) 459-657705-27-2022 History of Present illness Narrative* Paul Murcia DO - 04/02/2022 11:30 AM EDT Images from the original note were not included. Paul Murcia DO [facility] General Orthopedics - Orthopedic Spine Surgeon [address] [place], [place] [address]odessa [address] [facility] [address] [address] [place] [address] Phone: [phone] ([phone]) FAX: [phone] SPINE SURGERY OUTPATIENT CONSULT SERVICE DATE: 04/02/2022 Last Office Visit: 09/30/[address] Edson Lara REFERRING PROVIDER: Vj Sandhu [facility] [address] [facility] [id number] CHIEF COMPLAINT: Low back pain HISTORY OF PRESENT ILLNESS Francia Gama is a 61 year old female presenting with daughter. She is a former patient on Dr. Sandhu. She was last seen on 09/30/2022 status post L4/5 TLIF with PSF on 05/07/2021 where she stated overall she continued to do well. She noted some lumbar stiffness and soreness and intermittent discomfort into the left hip. She also noted intermittent generalized weakness/fatigue in bilateral lower extremities, but felt she needed to participate in some therapy to improve her lower extremity strength. Recommendation was to obtain repeat xray's and follow upin 6 months, prompting her visit today. Today, she she has been doing good since surgery. Stated she still has stiffness and soreness in her lumbar region. States when she is squatting down she gets pain in her left hip that radiates into her groin. States that she gets intermittent sharp pain in her right hip. She is requesting a referral to pain management. Overall she is please with her surgery. Denies loss of bowel or bladder. Denies gait instability. She is here for image review, evaluation and plan of care. She is here for image review, evaluation and plan of care. SYMPTOMS: lumbar stiffness, soreness PREVIOUS CONSERVATIVE TREATMENTS: Aqua therapy PREVIOUS SURGERY: SURGERY #1: L4/5 TLIF with PSF on 05/07/[address] 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 After a fall Depression Dysphagia Essential hypertension, benign Generalized anxiety disorder GERD (gastroesophageal reflux disease) Hiatal hernia AARON (obstructive sleep apnea) mild -no CPAP Spondylolisthesis of lumbar region PAST SURGICAL HISTORY Procedure Laterality Date CAPSULE ENDOSCOPY SMALL BOWEL WITH EGD (HL,MM) 06/01/2015 COLONOSCOPY W/BIOPSY SINGLE/MULTIPLE 05/25/2015 EGD TRANSORAL BIOPSY SINGLE/MULTIPLE 05/27/2015 hiatal hernia; Dr. Killian EGD WITH BIOPSY(S) 04/10/2021 Dr. Saavedra LAMINECTOMY,LUMBAR 07/24/2015 L4-5 with facetectomy LAPS RPR PARAESPHGL HRNA INCL FUNDPLSTY W/MESH 08/27/2015 with anterior/posterior gastropexy; Dr. Skaggs LAPS SURG CHOLECYSTECTOMY W/CHOLANGIOGRAPHY 09/10/2008 nORMAL ioc PAST SURGICAL HISTORY OF 05/07/2007 fusion left wrist-partial PAST SURGICAL HISTORY OF 04/07/2006 fusion left wrist-partial TOTAL ABDOMINAL HYSTERECT W/WO RMVL TUBE OVARY 10/07/2007 TX ECTOPIC W/O SALPING&/OOPHORECTOMY Ectopic FAMILY HISTORY Problem Relation Age of Onset other (a fib) Mother Diabetes Mother other (HTn) Mother Coronary Artery Disease Father Heart Failure Father Diabetes Brother other (cardiac stents) Brother Heart Brother Heart Maternal Grandmother Cancer Maternal Grandfather Cancer Paternal Grandmother Social History Tobacco Use Smoking status: Former Smoker Years: 6.50 Types: Cigarettes Quit date: 11/12/2008 Years since quittin.3 Smokeless tobacco: Never Used Tobacco comment: 1 pack per week Vaping Use Vaping Use: Former Substance Use Topics Alcohol use: Yes Alcohol/week: 7.0 standard drinks Types: 7 Cans of Beer (12oz) per week Comment: socially-once weekly Drug use: Yes Types: Marijuana Comment: occ ALLERGIES Allergen Reactions Kiwi Anaphylaxis Latex, Natural Rubb* Hives Tetracycline Vomiting Paroxetine Unknown Morphine Itching MEDICATIONS: cyclobenzaprine (FLEXERIL) 10 mg tablet Take 1 tablet by mouth three times daily as needed for muscle spasm. buPROPion XL (WELLBUTRIN XL) 300 mg 24 hr tablet Take 300 mg by mouth once daily. Cholecalciferol, Vitamin D3, 50 mcg (2,000 unit) cap Take 1 capsule by mouth once daily. fluticasone (FLONASE) 50 mcg/actuation nasal spray Use 2 (TWO) sprays IN EACH NOSTRIL DAILY DIRECTED fexofenadine HCl (BETTY ORAL) Take by mouth once daily. losartan-hydroCHLOROthiazide (HYZAAR) 100-25 mg per tablet Take 1 tablet by mouth once daily. amlodipine besylate (AMLODIPINE ORAL) Take 10 mg by mouth once daily. citalopram hydrobromide(CELEXA 40 MG TAB) Take one(1) tablet daily. polyethylene glycol 3350 (MIRALAX, GLYCOLAX) 17 gram/dose powder Use as directed for Miralax / Gatorade Bowel Prep Kit Gatorade Sports Drink Use as directed for Miralax / Gatorade Bowel Prep Kit Bisacodyl (DULCOLAX) 5 mg tab Use as directed for Miralax / Gatorade Bowel Prep Kit pregabalin (LYRICA) 150 mg capsule Take 1 capsule by mouth twice daily for 30 days. METOPROLOL SR 100 MG 24 HR TAB Take 100 mg by mouth twice daily. REVIEW OF SYSTEMS Review of Systems OBJECTIVE: BP 141/91 (BP Site: Right Arm, BP Position: Sitting, BP Cuff Size: Large Adult) Pulse 78 Temp 36.7 C (98 F) Ht 165.1 cm (5' 5) Wt 89.4 kg (197 lb 1.5 oz) SpO2 100% BMI 32.80 kg/m PHYSICAL EXAM GENERAL APPEARANCE: Well nourished, well developed, and no apparent distress. NEURO PSYCH: Patient oriented to person, place, and time. Mood pleasant. Benign affect. CARDIOVASCULAR: Palpable pulses. No edema noted. No varicosities. SKIN: Head, neck, trunk, and extremities dry, intact and without lesions. LYMPHATICS: No palpable nodes in cervical or axillae areas. Groin exam deferred MUSCULOSKELETAL PALPATION: SPINOUS PROCESS: No pain. PARASPINALS: No pain. MUSCLE TONE and BULK: Symmetrical in the upper & lower extremities. MOTOR: Upper Extremity Left Right Deltoids 5/5 5/5 Biceps 5/5 5/5 Triceps 5/5 5/5 Automobile Painter 5/5 5/5 Interossei 5/5 5/5 Lower Extremity Hip Flexors 5/5 5/5 Quadriceps 5/5 5/5 Dorsiflexion 5/5 5/5 EHL 5/5 5/5 Plantar Flexion 5/5 5/5 SENSORY: Sensation intact to light touch C5-T1, L1 S GAIT: Able to perform toe and heel walk. Able to perform tandem gait. LONG TRACT SIGNS: No clonus. No Hoffmanns. REFLEXES: symmetric non-brisk DATA REVIEW XR LUMBAR LIMITED 2V AP/LAT 04/02/2022 AP lateral view of the lumbar spine displays an L4-5 TLIF with hardware in excellent position no signs of loosening. ASSESSMENT/PLAN Francia Gama is a 61-year-old female who is 6-month status post L4-5 MIS TLIF. -She is doing great since the surgery. She has resolution of her leg pain. She still continues to have some low back pain. Patient states that she would like to start pain management for possible injections in her low back. Given referral today to Dr. Levine. I will see the patient back at the 1 year armond in 6 months. The following portions of the patient's history were reviewed, confirmed, and updated as necessary:allergies, current medications, past family history, past medical history, past social history, past surgical history, problem list, HPI, and ROS obtained by others. Some elements may be copied from a previous office note and have been reviewed/updated where appropriate. All portions reflect current medical decision making from today. The clinical and radiographic findings as well as the risks, benefits and alternatives of treatmenthave been reviewed in detail with the patient. Advised to call the office if symptoms worsen or new symptoms develop. Patient expressed understanding and is in agreement with plan. Paul Murcia DO documented in this encounter[facility]22 NoteHNO ID: [id number] Author: Connor Cho PA-C Service: ? Author Type: Physician Application Integrator Type: Progress Notes Filed: 11/24/2021 3:07 PM Note Text: 11/24/2021 Patient presents with: Headache: CHILLS, DIARRHEA X LAST NIGHT, treated for congestion 1 week ago SUBJECTIVE: This is a 61 year old that is here today for Complaint(s) of cough x 1.5 weeks. Seen at the start of symptoms and negative for COVID, primary care provider called in zpak, prednisone, and tessalon. Overall felt like she was starting to improve, but then started last night with JIMÉNEZ, chills, diarrhea. She has had 2 positive COVID exposures since she was last tested-daughter and grandson. Denies fever, SOB, wheezing. Patient vaccinated for COVID, due for booster. PAST MEDICAL HISTORY Diagnosis Date - Acute deep vein thrombosis (DVT) of popliteal vein of left lower extremity (HCC) 06/2020 Eliquis x 3 months off now. After a fall - Depression - Dysphagia - Essential hypertension, benign - Generalized anxiety disorder - GERD (gastroesophageal reflux disease) - Hiatal hernia - AARON (obstructive sleep apnea) mild -no CPAP - Spondylolisthesis of lumbar region ALLERGIES Kiwi; Latex, Natural Rubber; Tetracycline; Paroxetine; and Morphine MEDICATIONS Current Outpatient Medications Medication Sig - cyclobenzaprine (FLEXERIL) 10 mg tablet Take 1 tablet by mouth three times daily as needed for muscle spasm. - buPROPion XL (WELLBUTRIN XL) 300 mg 24 hr tablet Take 300 mg by mouth once daily. - Cholecalciferol, Vitamin D3, 50 mcg (2,000 unit) cap Take 1 capsule by mouth once daily. - fluticasone (FLONASE) 50 mcg/actuation nasal spray Use 2 (TWO) sprays IN EACH NOSTRIL DAILY DIRECTED - fexofenadine HCl (BETTY ORAL) Take by mouth once daily. - losartan-hydroCHLOROthiazide (HYZAAR) 100-25 mg per tablet Take 1 tablet by mouth once daily. - amlodipine besylate (AMLODIPINE ORAL) Take 10 mg by mouth once daily. - METOPROLOL SR 100 MG 24 HR TAB Take 100 mg by mouth twice daily. - citalopram hydrobromide(CELEXA 40 MG TAB) Take one(1) tablet daily. - polyethylene glycol 3350 (MIRALAX, GLYCOLAX) 17 gram/dose powder Use as directed for Miralax / Gatorade Bowel Prep Kit (Patient not taking: Reported on 09/30/2021 ) - Gatorade Sports Drink Use as directed for Miralax / Gatorade Bowel Prep Kit (Patient not taking: Reported on 09/30/2021 ) - Bisacodyl (DULCOLAX) 5 mg tab Use as directed for Miralax / Gatorade Bowel Prep Kit (Patient not taking: Reported on 09/30/2021 ) - pregabalin (LYRICA) 150 mg capsule Take 1 capsule by mouth twice daily for 30 days. Current Facility-Administered Medications Medication Dose Route Frequency - perflutren lipid microspheres 1.3 mL in NaCl (PF) 0.9% 10 mL injection (DEFINITY) INTRAVENOUS DIRECTED PRN SOCIAL HISTORY Social History Tobacco Use - Smoking status: Former Smoker Years: 6.50 Types: Cigarettes Quit date: 11/12/2008 Years since quittin.0 - Smokeless tobacco: Never Used - Tobacco comment: 1 pack per week Vaping Use - Vaping Use: Former Substance Use Topics - Alcohol use: Yes Alcohol/week: 7.0 standard drinks Types: 7 Cans of Beer (12oz) per week Comment: socially-once weekly - Drug use: Yes Types: Marijuana Comment: occ REVIEW OF SYSTEMS See HPI OBJECTIVE: BP 126/78 Pulse 86 Temp 36.4 ?C (97.6 ?F) Resp 18 Wt 85.7 kg (189 lb) SpO2 97% BMI 31.45 kg/m? APPEARANCE alert, in no acute distress, well-hydrated, well nourished. EYES PERRLA, conjunctiva and sclera normal. EARS External ears normal, canals clear. TMs normal SANA NOSE/SINUS Nares normal. Septum midline. Mucosa normal. No drainage or sinus tenderness. THROAT normal, no erythema NECK Supple, no adenopathy; HEART RRR with normal S1 and S2 LUNG clear to auscultation,No wheezing, rhonchi, rales. + cough present. ASSESSMENT/PLAN: 1. Suspected COVID-19 virus infection - ICD9: V01.79, ICD10: Z20.822 Supportive care with fluids/rest, OTC cough/cold meds prn Reviewed self isolation/quarnatine instructions Note for school given pending test results Reviewed red flags and when to seek care sooner. Consider CXR if not improving or worsening. - COVID WITH FLUA+B, ROUTINE The patient indicates understanding of these issues and agrees with the plan. . Connor Cho PA-C 11/24/2021[facility]05-10-2021 History of Present illness Narrative* Angelika Shaffer - 03/16/2021 1:55 PM EDT brant documented in this encounterAccess [facility] [place]04-27-2021 Miscellaneous Notes* Telephone Encounter - Amy Tavarez - 03/03/2021 2:41 PM EDT Patient called regarding her EGD LVM I return her call and LEFT A VOICEMAI documented in this encounterAccess [facility] [place]04-27-2021 History of Present illness Narrative* Steven Jurado RN - 03/03/2021 10:58 AM EDT Gastric Emptying Scan With a gastric emptying scan, a machine called a scanner is used to take pictures of your stomach. A gastric emptying scan is an imaging test. It measures how quickly food travels from the stomach into the small bowel (intestine). During the test, you re given a meal to eat that contains a small amount of radioactive substance (tracer). Then scans of the stomach are done. The tracer shows up clearly on the scans and tracks the movement of the food through your stomach. This test is most often n eeded if you have symptoms that suggest a motility problem. Motility refers to the movement of the muscles in the digestive tract. The test takes about 5 hours. Before the test Let your healthcare provider know of any medicines you re taking. This includes vitamins, herbs, and qyko-nwl-zqenddy medicines. Certain medicines may need to be stopped for a time in the days beforethe test. Don t eat or drink anything starting from 6 hours before the test. Follow any other instructions given by your healthcare provider. Let the technologist know For your safety, let the technologist know if you: Are taking any medicines Had recent X-rays or tests involving other substances, such as barium Have current symptoms of nausea or vomiting Had recent surgery Have other health problems, such as diabetes Have any allergies Are or may be Are During the test A gastric emptying scan takes place in a hospital or imaging center. It is done by a technologist trained in nuclear medicine or radiology. You ll be given a meal to eat. This can be a solid food, such as eggs, or a liquid, such as water. Both the food and drink contain a small amount of tracer. The tracer has no flavor. If you re allergic to the food to be given, another type of food is used instead. After you finish the meal, you ll be asked to lie on your back on an exam table. Pictures of your stomach are then taken with a machine called a scanner. You must lie still during this process. The scanner uses technology that can detect the amount of tracer in the stomach. As food is emptied from the stomach, the amount of tracer decreases. This allows the technologist to measure the rate at which food is leaving the stomach. More pictures of your stomach are taken at different times. This usually occurs after 1, 2, and 4 hours of eating the meal. You can leave the room between the times the pictures are taken. But do noteat or drink anything or perform any strenuous activities during this period. Once the last set of pictures has been taken, the test is complete. After the test You can go home shortly after the test. A nuclear medicine doctor or radiologist will communicate the test results to your healthcare provider. Your provider will then review the test results with you. This will likely occur within a few days of the test. Risks and possible complications of this test There is a small amount of radiation exposure from the tracer. This amount is not considered to be dangerous, but it can carry certain risks if you are or . Be sure to talk to your healthcare provider about these risks before the test. [id number] [employer]. [address] [place], [place] [address]. All rights reserved. This information is not intended as a substitute for professional medical care. Always follow yourhealthcare professional's instructions. * Mitra Saavedra MD - 03/03/2021 10:19 AM EDT Images from the original note were not included. SURGICAL SERVICES HISTORY AND PHYSICAL EXAMINATION SERVICE DATE: 03/03/2021 SERVICE TIME: 10:19 AM PRIMARY CARE PHYSICIAN: Julisa Cheung MD SUBJECTIVE CHIEF COMPLAINT: Hiatal hernia/dysphgia/GERD HISTORY OF PRESENT ILLNESS: Ms. Gama is a 60 year old female with a PMH of HTN (amlodipine, losartan,metoprolol), anxiety, depression, HLD, chronic lower back pain/spinal stenosis, GERD (pepcid), LE DVT (x1 in 06/26 after a fall; on Eliquis 3 months) who presents for evaluation of a dysphagia, GERD and recurrent hiatal hernia. The patient endorses symptoms of dysphagia, heartburn, and chest pain which began 1 year ago and has progressively worsened with intake of solids - she also endorses regurgitation, belching, and substernal burning. She reportsthings getting stuck in my throat and it is difficult to swallow. Symptoms of heartburn began approximately 8 months ago at which time she began taking Prilosec daily. She endorses a 6 month history of abdominal pain/epigastric burning. She endorses new blood per rectum - twice last week and once this week. She endorses intermittent nausea with oral intake (of note UGI from 10/2015 after Rosenda demonstrated a large amount of food in the stomach). QOL score today is40. She endorses lack of appetite. She underwent laparoscopic hiatal hernia repair (large type 3) with Rosenda fundoplication on 08/27/15 due to chronic anemia and Jean's ulcers thought to be due to her large hiatal hernia. She has had good results with no symptoms of anemia, heartburn or regurgitation since that time - until about 8-12 months ago. She lost 40 pounds surrounding the time of hernia repair, but has regained that weight and remains stable around 190 pounds. Today her weight is 199 pounds and BMI is 33.96. She underwent esophagram on 01/30/21 which demonstrated a moderate-sized hiatal hernia. She denies a history of ME, CVA, diabetes, cancer or other medical issues. Social Hx: former smoker who quit in 2011 with no relapses; she drinks 6 beers per week; she uses recreational marijuana (one bowel per day); she denies use of other drugs. She works at [employer]. She lives with her daughter Maria L (works at [employer]) PSHx: lumbar laminectomy (L4/5), lap CCx, paraesophageal hernia repair (2014 w/ Dr. Skaggs), ANNA, left wrist fusion, ectopic PAST MEDICAL HISTORY: PAST MEDICAL HISTORY Diagnosis Date Essential hypertension, benign PAST SURGICAL HISTORY: PAST SURGICAL HISTORY Procedure Laterality Date CAPSULE ENDOSCOPY SMALL BOWEL WITH EGD (HL,MM) 06/01/2015 COLONOSCOPY W/BX 05/25/2015 EGD W/O BRSH SPECIMEN W/BX 05/27/2015 hiatal hernia; Dr. Killian LAMINECTOMY,LUMBAR 07/24/2015 L4-5 with facetectomy LAP CHOLECYSTECT/CHOLANGIOGRAPHY 09/10/2008 nORMAL ioc LAPS RPR PARAESPHGL HRNA INCL FUNDPLSTY W/MESH 08/27/2015 with anterior/posterior gastropexy; Dr. Skaggs PAST SURGICAL HISTORY OF 05/07/2007 fusion left wrist-partial PAST SURGICAL HISTORY OF 04/07/2006 fusion left wrist-partial TOTAL ABDOM HYSTERECTOMY 10/07/2007 TREAT ECTOPIC PREG,NON REMVAL Ectopic FAMILY HISTORY: FAMILY HISTORY Problem Relation Age of Onset Cancer Paternal Grandmother Cancer Maternal Grandfather Coronary Artery Disease Father Heart Maternal Grandmother SOCIAL HISTORY: Social History Tobacco Use Smoking status: Former Smoker Quit date: 11/12/2008 Years since quittin.3 Smokeless tobacco: Never Used Vaping Use Vaping Use: Former Substance Use Topics Alcohol use: Yes Comment: socially Drug use: No MEDICATIONS: Current Outpatient Medications Medication Sig famotidine (PEPCID) 40 mg tablet Take 40 mg by mouth once daily. pregabalin (LYRICA) 150 mg capsule Take 1 capsule by mouth twice daily for 30 days. losartan potassium (LOSARTAN ORAL) Take by mouth. amlodipine besylate (AMLODIPINE ORAL) Take by mouth. bupropion HCl (WELLBUTRIN ORAL) Take by mouth. METOPROLOL SR 100 MG 24 HR TAB Take one(1) tablet daily. citalopram hydrobromide(CELEXA 40 MG TAB) Take one(1) tablet daily. apixaban (ELIQUIS) 5 mg tab(s) Take by mouth twice daily. (Patient not taking: Reported on 02/10/2021 ) nabumetone (RELAFEN) 750 mg tablet Take 750 mg by mouth twice daily. (Patient not taking: Reported on 02/10/2021 ) omeprazole(PRILOSEC 10 MG CAP) Take one(1) capsule daily. (Patient not taking: Take one(1) capsule daily.) No current facility-administered medications for this visit. ALLERGIES: ALLERGIES Allergen Reactions Kiwi Anaphylaxis Latex, Natural Rubb* Hives Morphine Itching Tetracycline Vomiting COMPLETE REVIEW OF SYSTEMS: Review of Systems Constitutional: Negative for chills, diaphoresis, fever, malaise/fatigue and weight loss. HENT: Negative for congestion, hearing loss, nosebleeds, sinus pain, sore throat and tinnitus. Eyes: Negative for blurred vision, double vision, pain and redness. Respiratory: Negative for cough, hemoptysis, sputum production, shortness of breath and wheezing. Cardiovascular: Positive for chest pain (heartburn) and leg swelling (left leg swelling x3 months).Negative for palpitations, orthopnea and PND. Gastrointestinal: Positive for abdominal pain (epigastric burning), blood in stool, heartburn and nausea (since second vaccine dose 4 days ago). Negative for constipation, diarrhea and vomiting. Genitourinary: Negative for dysuria, frequency, hematuria and urgency. Musculoskeletal: Positive for back pain and joint pain (knee, hips, ankles). Negative for falls, myalgias and neck pain. Skin: Negative for itching and rash. Neurological: Negative for dizziness, speech change, focal weakness, seizures, loss of consciousness, weakness and headaches. Endo/Heme/Allergies: Does not bruise/bleed easily. Psychiatric/Behavioral: Positive for depression and substance abuse. Negative for hallucinations, memory loss and suicidal ideas. The patient is nervous/anxious. The patient does not have insomnia. OBJECTIVE PHYSICAL EXAM: BP 150/102 Pulse 60 Ht 5' 4.25 (1.63m) Wt 199 lb 6.4 oz (90.4kg) SpO2 99% BMI 33.96 kg/(m^2). Physical Exam Vitals reviewed. Constitutional: Appearance: Normal appearance. She is obese. HENT: Head: Normocephalic and atraumatic. Eyes: General: No scleral icterus. Right eye: No discharge. Left eye: No discharge. Extraocular Movements: Extraocular movements intact. Conjunctiva/sclera: Conjunctivae normal. Pupils: Pupils are equal, round, and reactive to light. Cardiovascular: Rate and Rhythm: Normal rate and regular rhythm. Pulses: Normal pulses. Heart sounds: Normal heart sounds. Pulmonary: Effort: Pulmonary effort is normal. No respiratory distress. Abdominal: General: Abdomen is flat. There is no distension. Palpations: Abdomen is soft. There is no mass. Tenderness: There is abdominal tenderness in the epigastric area. There is no guarding or rebound. Hernia: No hernia is present. Musculoskeletal: General: Swelling (left lower ankle) present. Normal range of motion. Skin: General: Skin is warm and dry. Coloration: Skin is not jaundiced or pale. Findings: No bruising, erythema, lesion or rash. Neurological: General: No focal deficit present. Mental Status: She is alert and oriented to person, place, and time. Psychiatric: Mood and Affect: Mood normal. Behavior: Behavior normal. Judgment: Judgment normal. DATA: Diagnostic tests reviewed for today's visit: EMR reviewed Plan ASSESSMENT AND PLAN Francia Gama is a 60 year old female with a PMH as noted above who presents with recurrent hiatalhernia 1. Paraesophageal hernia - ICD9: 553.3, ICD10: K44.9 (primary diagnosis) - Today in clinic the patient and I reviewed her symptoms and work up which has been completed to this point. I have reviewed the UGI performed at the OSH, but I unfortunately do not have access to the actual images. Per the UGI report, it does sound as though the patient has a recurrent paraesophageal hernia. Her symptoms are also consistent with this diagnosis. - I will obtain an EGD to assess for recurrent hiatal hernia and rule out peptic ulcer disease and Kumar's given her history of Jean's erosions, current epigastric pain/tenderness, and her history of smoking. - EGD - PRE-PROCEDURE & PRE-OPERATIVE COVID 2. Gastroesophageal reflux disease, unspecified whether esophagitis present - ICD9: 530.81, ICD10: K21.9 - As above - EGD 3. Blood in stool - ICD9: 578.1, ICD10: K92.1 - This blood per rectum could be secondary to gastric ulcers/peptic ulcer disease, but given the bright red nature, I believe a colonoscopy is warranted. She reports a colonoscopy approximately 5 years ago, but I do not see evidence of this in the EMR. - POLYETHYLENE GLYCOL 3350 17 GRAM/DOSE ORAL POWDER - GATORADE SPORTS DRINK - BISACODYL 5 MG TABLET - COLONOSCOPY - DIAGNOSTIC 4. Class 1 obesity due to excess calories with serious comorbidity and body mass index (BMI) of 33.0 to 33.9 in adult - ICD9: 278.00, V85.33, ICD10: E66.09, Z68.33 - If she is found to have recurrent hiatal hernia, which I believe she has, I will require her to lose ~29 pounds to 170 pounds (BMI of 30 or less) prior to surgery. We discussed strategies for weight loss and I will also have her see Dr. Rendon with obesity medicine. - CONSULT TO OBESITY MEDICINE 5. Nausea - ICD9: 787.02, ICD10: R11.0 - Due to previous hiatal repair, previous UGI demonstrating retained gastric food contents, and juan jose-going symptoms of loss of appetite/nausea/early satiety I am concerned she may have delayed gastric emptying. Will obtain a 4 hour solid GES. - NM GASTRIC EMPTYING SOLID I spent a total of 45 minutes on the date of the service which included preparing to see the patient, [id number] patient care, completing clinical documentation, obtaining and/or reviewing separately obtained history, performing a medically appropriate examination, counseling and educating the pat ient/family/caregiver, ordering medications, tests, or procedures, communicating with other HCPs (not separately reported), independently interpreting results (not separately reported), communicatingresults to the patient/family/caregiver and care coordination (not separately reported). SIGNATURE: Mitra Saavedra MD PATIENT NAME: Francia Gama DATE: March 03, 2021 TIME: 10:19 AM PAGER/CONTACT #: [id number] documented in this encounterAccess [facility]04-27-2021 Instructions* Patient Instructions* Mitra Saavedra MD - 03/03/2021 10:39 AM EDT Images from the original note were not included. Bowel Preparation Instructions for: Miralax-Gatorade Preparations IF YOU DO NOT FOLLOW THESE DIRECTIONS, YOUR COLONOSCOPY WILL BE CANCELLED. [place] Instructions: Your bowel must be empty so that your doctor can clearly view your colon. Follow all of the instructions in this handout EXACTLY as they are written. Do NOT eat any solid food the ENTIRE day before your colonoscopy. Buy your bowel preparation at least 5 days before your colonoscopy. Four (4) Dulcolax laxative tablets containing 5mg of bisacodyl each (NOT Dulcolax stool softener) One (1) 8.3oz. bottle Miralax (238 grams) or generic equivalent 2 x 32oz. Bottles of Gatorade (NOT RED) Diabetic Patients: Use G2 (Gatorade 2) TRANSPORTATION on the Day of Your Exam A responsible adult MUST be present with you at Check In prior to your colonoscopy and REMAIN in the endoscopy area until you are discharged. You are NOT ALLOWED to drive, take a taxi or bus, or leave the Endoscopy Center ALONE. If you do not have a responsible lumber driver (family member or friend) withyou to take you home, your exam cannot be done with sedation and will be cancelled. Please bring a list of all of your current medications, including any Ryfe-jws-Wmgnkfj medications with you. Medications If you take insulin, diabetic medications or blood thinners such as Coumadin (warfarin), Plavix (clopidogrel), Ticlid (ticlopidine hydrochloride), Agrylin (anagrelide), Xarelto (Rivaroxaban), Pradaxa(Dabigatran), Eliquis (Apixaban), and Effient (Prasugrel). You MUST call the doctors who orders those medicines for instructions on altering the dosage before your colonoscopy. All other medications should be taken the day of the exam with a sip of water including ASPIRIN. Five (5) Days Before Your Colonoscopy Do NOT take medicines that stop diarrhea - such as Imodium, Kaopectate, or Pepto Bismol. Do NOT take fiber supplements - such as Metamucil, Citrucel, or Perdiem. Do NOT take products that contain iron - such as multi-vitamins (the label lists what is in the products). Three (3) Days Before Your Colonoscopy Do NOT eat high-fiber foods - such as popcorn, beans, seeds (flax, sunflower, quinoa), multigrain bread, nuts, salad/vegetables, or fresh and dried fruit. 2 Bowel Preparation Instructions for: Miralax-Gatorade Preparations One (1) Day Before Your Colonoscopy Only drink clear liquids the ENTIRE DAY before your colonoscopy. Do NOT eat any solid foods. Drink at least 8 ounces of clear liquids every hour after waking up. The clear liquids you can drink include: Clear Liquid (NO RED LIQUIDS) DO NOT DRINK Gatorade, Pedialyte or Powerade Clear broth or bouillon Coffee or tea (no milk or non-dairy creamer) Carbonated and non-carbonated soft drinks Silvestre-Aid or other fruit flavored drinks Strained fruit juices (no pulp) Jell-O, popsicles, hard candy Water Alcohol Milk or non-dairy creamers Noodles or vegetables in soup Juice with pulp Liquid you cannot see through Mix 1/2 of Miralax bottle (119 grams) in each 32 ounces of Gatorade bottle until dissolved. Keep cool in the refrigerator. DO NOT ADD ICE. The bowel preparation solution will be consumed in two parts. Part 1 5:00 PM - Evening before your colonoscopy Take 4 Dulcolax tablets. 6 PM - Evening before your colonoscopy Drink 32 oz. of the mixed solution. Drink an 8 oz. glass of bowel preparation every 15 minutes for a total of 4 glasses. Fifteen (15) minutes later, drink an 8 oz. glass of of clear liquids every 15 minutes for a total of 2 glasses. You may continue to drink clear liquids till midnight. Part 2 On the day of your colonoscopy you may drink clear liquids up to (three) 3 hours prior to procedure. 4 hours before your colonoscopy Take another 32 oz. bottle of mixed solution. Drink an 8 oz. glass of bowel prep every 15 minutes for a total of 4 glasses. Fifteen (15) minutes later, drink an 8 oz. glass of clear liquids every 15 minutes for a total of 2glasses. You may continue to drink clear liquids up to (three) 3 hours before your exam. 3 10/2019 [facility] Diagnosis Blood in stool- Primary Paraesophageal hernia Diaphragmatic hernia without mention of obstruction or gangrene Gastroesophageal reflux disease, unspecified whether esophagitis present Blood in stool Paraesophageal hernia Diaphragmatic hernia without mention of obstruction or gangrene Gastroesophageal reflux disease, unspecified whether esophagitis present [facility]* Diagnosis Paraesophageal hernia- Primary Diaphragmatic hernia without mention of obstruction or gangrene Gastroesophageal reflux disease, unspecified whether esophagitis present Blood in stool Class 1 obesity due to excess calories with serious comorbidity and body mass index (BMI) of 33.0 to 33.9 in adult Nausea Nausea alone Blood in stool Paraesophageal hernia Diaphragmatic hernia without mention of obstruction or gangrene Gastroesophageal reflux disease, unspecified whether esophagitis present [facility]* Diagnosis Spondylolisthesis of lumbar region- Primary Acquired spondylolisthesis Blood in stool Paraesophageal hernia Diaphragmatic hernia without mention of obstruction or gangrene Gastroesophageal reflux disease, unspecified whether esophagitis present [facility]* Diagnosis Spondylolisthesis of lumbar region- Primary Acquired spondylolisthesis Blood in stool Paraesophageal hernia Diaphragmatic hernia without mention of obstruction or gangrene Gastroesophageal reflux disease, unspecified whether esophagitis present documented in this encounter [facility] noteNo assessment information availableWDetwiler [facility] Work Phone: Evaluation note* Diagnosis Left leg pain- Primary Pain in limb documented in this encounter [facility] note* Diagnosis Spondylolisthesis, lumbar region documented in this encounter [facility] note* Diagnosis Gastroesophageal reflux disease, unspecified whether esophagitis present- Primary Paraesophageal hernia Diaphragmatic hernia without mention of obstruction or gangrene Hypertension, unspecified type Screening for colon cancer Special screening for malignant neoplasms, colon Class 1 obesity with serious comorbidity and body mass index (BMI) of 31.0 to 31.9 in adult, unspecified obesity type documented in this encounter [facility] note* Diagnosis Screening for colon cancer- Primary Special screening for malignant neoplasms, colon Paraesophageal hernia Diaphragmatic hernia without mention of obstruction or gangrene Hypertension, unspecified type documented in this encounter [facility] note* Diagnosis Gastroesophageal reflux disease, unspecified whether esophagitis present Paraesophageal hernia Diaphragmatic hernia without mention of obstruction or gangrene Hypertension, unspecified type documented in this encounter [facility] note* Diagnosis Screening for colon cancer Special screening for malignant neoplasms, colon Paraesophageal hernia Diaphragmatic hernia without mention of obstruction or gangrene Hypertension, unspecified type documented in this encounter [facility] note* Diagnosis Gastroesophageal reflux disease, unspecified whether esophagitis present documented in this encounter [facility] note* Diagnosis Gastroesophageal reflux disease without esophagitis- Primary Esophageal reflux Paraesophageal hernia Diaphragmatic hernia without mention of obstruction or gangrene Hypertension, unspecified type Class 1 obesity with serious comorbidity and body mass index (BMI) of 30.0 to 30.9 in adult, unspecified obesity type Gastroesophageal reflux disease without esophagitis Esophageal reflux Paraesophageal hernia Diaphragmatic hernia without mention of obstruction or gangrene Hypertension, unspecified type Body mass index 30.0-30.9, adult Body Mass Index 30.0-30.9, adult documented in this encounter [facility] note* Diagnosis Gastroesophageal reflux disease without esophagitis- Primary Esophageal reflux Paraesophageal hernia Diaphragmatic hernia without mention of obstruction or gangrene Hypertension, unspecified type Body mass index 30.0-30.9, adult Body Mass Index 30.0-30.9, adult Gastroesophageal reflux disease without esophagitis Esophageal reflux Paraesophageal hernia Diaphragmatic hernia without mention of obstruction or gangrene Hypertension, unspecified type Body mass index 30.0-30.9, adult Body Mass Index 30.0-30.9, adult documented in this encounter [facility] note* Diagnosis Gastroesophageal reflux disease without esophagitis- Primary Esophageal reflux Paraesophageal hernia Diaphragmatic hernia without mention of obstruction or gangrene Hypertension, unspecified type Class 1 obesity with serious comorbidity and body mass index (BMI) of 31.0 to 31.9 in adult, unspecified obesity type Gastroesophageal reflux disease without esophagitis Esophageal reflux Paraesophageal hernia Diaphragmatic hernia without mention of obstruction or gangrene Hypertension, unspecified type Body mass index 30.0-30.9, adult Body Mass Index 30.0-30.9, adult [facility] Diagnosis Paraesophageal hernia- Primary Diaphragmatic hernia without mention of obstruction or gangrene Preop examination Preoperative examination, unspecified Hypertension, unspecified type AARON (obstructive sleep apnea) Obstructive sleep apnea (adult) (pediatric) Gastroesophageal reflux disease without esophagitis Esophageal reflux S/P repair of paraesophageal hernia- Primary Other postprocedural status documented in this encounter [facility] for referral (narrative)* Diagnostic Procedure Only (Routine) - Closed Specialty Diagnoses / Procedures Referred By Zhang fried Referred To Contact XR IMAGING Diagnoses Spondylolisthesis, lumbar region Procedures XR LUMBAR LIMITED 2V AP/LAT X-RAY L-S SPINE AP/LATERAL Vj Sandhu MD [address] [place] [address] Xr Imaging Referral ID Status Reason Start Date Expiration Date V isits Requested Visits Authorized [id number] Closed Auto-Generate d Referral 03/29/2022 10/29/2022 1 1 [facility] for referral (narrative)* Outpatient Procedure (Routine) - New Request Specialty Diagnoses / Procedures Referred By Zhang fried Referred To [facility] Diagnoses Gastroesophageal reflux disease, unspecified whether esophagitis present Procedures EGD DIAGNOSTIC EGD DIAGNOSTIC ESOPHAGOGASTRODUODENOSC OPY TRANSORAL DIAGNOSTIC Mitra Saavedra MD [address] [address] [facility] [place] [address] [place] [address] Referral ID Status Reason Start Date Expiration Date Visits Requested Visits Authorized [id number] New Request Auto-Generat ed Referral 08/02/2024 08/02/2025 1 1 * Outpatient Procedure (Routine) - New Request Specialty Diagnoses / Procedures Referred By Zhang fried Referred To Contact [facility] Diagnoses Screening for colon cancer Procedures COLONOSCOPY DIAGNOSTIC COLONOSCOPY FLX DX W/COLLJ SPEC WHEN PFRMD Mitra Saavedra MD [address] [place] [address] [facility] [address] [address] Referral ID Status Reason Start Date Expiration Date Visits Requested Visits Authorized [id number] New Request Auto-Generat ed Referral 08/02/2024 08/02/2025 1 1 * Outpatient Procedure (Routine) - New Request Specialty Diagnoses / Procedures Referred By Zhang fried Referred To Contact [facility] Diagnoses Paraesophageal hernia Procedures MANOMETRY ESOPHAGEAL ESOPHAGEAL MOTILITY STUDY W/INTERP&RPT Mitra Saavedra MD [address] [place] [address] [facility] [place] [id number] [place] [address] Referral ID Status Reason Start Date Expiration Date Visits Requested Visits Authorized [id number] New Request Auto-Generat ed Referral 08/02/2024 08/02/2025 1 1 * Diagnostic Procedure Only (Routine) - New Request Specialty Diagnoses / Procedures Referred By Zhang fried Referred To Contact XR IMAGING Diagnoses Gastroesophageal reflux disease, unspecified whether esophagitis present Procedures XR UPPER GI ROUTINE DOUBLE CONTRAST/AIR RADIOLOGIC EXAM UPR GI TRC DOUBLE CONTRAST STUDY Mitra Saavedra MD [address] [place] [address] [place] [id number] Referral ID Status Reason Start Date Expiration Date Visits Requested Visits Authorized [id number] New Request Auto-Generat ed Referral 08/02/2024 09/01/2025 1 1 [facility] for referral (narrative)* Outpatient Procedure (Routine) - Authorized Specialty Diagnoses / Procedures Referred By [facility] Referred To Contact [facility] Diagnoses Screening for colon cancer Procedures COLONOSCOPY SCREENING COLONOSCOPY FLX DX W/COLLJ SPEC WHEN PFRMD Steven Peoples MD 1 [facility] [address] [place] [address] [facility] [address] [place] [address] Referral ID Status Reason Start Date Expiration Date Visits Requested Visits Authorized [id number] Authorized Auto-Generat ed Referral 08/20/2025 1 1 [facility] for referral (narrative)* Diagnostic Procedure Only (Routine) - Closed Specialty Diagnoses / Procedures [facility] Referred To Contact XR IMAGING Diagnoses Gastroesophageal reflux disease, unspecified whether esophagitis present Procedures XR UPPER GI ROUTINE DOUBLE CONTRAST/AIR RADIOLOGIC EXAM UPR GI TRC DOUBLE CONTRAST STUDY Mitra Saavedra MD 1 [facility] [address] [place] [phone] [place] [id number] Referral ID Status Reason Start Date Expiration Date V isits Requested Visits Authorized [id number] Closed Auto-Generate d Referral 08/02/2024 09/01/2025 1 1 [facility] for referral (narrative)* Outpatient Procedure (Routine) - Closed Specialty Diagnoses / Procedures [facility] Referred To Contact [facility] Diagnoses Gastroesophageal reflux disease, unspecified whether esophagitis present Procedures EGD DIAGNOSTIC EGD DIAGNOSTIC ESOPHAGOGASTRODUODENOSC OPY TRANSORAL DIAGNOSTIC Mitra Saavedra MD [address] [facility] [address] [place] [address] [facility] [address] [place] [address] Referral ID Status Reason Start Date Expiration Date V isits Requested Visits Authorized [id number] Closed Auto-Generate d Referral 08/02/2024 08/02/2025 1 1 [facility] for referral (narrative)* Outpatient Procedure (Routine) - New Request Specialty Diagnoses / Procedures [facility] Referred To [facility] Diagnoses Gastroesophageal reflux disease without esophagitis Paraesophageal hernia Procedures ECG COMPLETE ECG ROUTINE ECG W/LEAST 12 LDS W/I&R Mitra Saavedra MD [address] [facility] [address] [place] [address] [facility] [place] [address] [place] [address] Referral ID Status Reason Start Date Expiration Date Visits Requested Visits Authorized [id number] New Request Auto-Generat ed Referral 12/06/2024 12/06/2025 1 1 * Transition of Care (Routine) - Authorized Specialty Diagnoses / Procedures Referred By [facility] Referred To Contact Diagnoses Gastroesophageal reflux disease without esophagitis Paraesophageal hernia Procedures CONSULT TO PRE-SURGICAL TESTING (AG) Mitra Saavedra MD [address] [address] Referral ID Status Reason Start Date Expiration Date Visits Requested Visits Authorized [id number] Authorized PCP Requested Referral 12/06/2024 03/06/2025 1 1 [facility] for referral (narrative)No reason for referral information availableWDetwiler Memorial Hospital Work Phone: Reason for visit Narrative* Diagnostic Procedure Only (Routine) - Closed Specialty Diagnoses / Procedures Referred By [facility] Referred To Contact XR IMAGING Diagnoses Spondylolisthesis, lumbar region Procedures XR LUMBAR LIMITED 2V AP/LAT X-RAY L-S SPINE AP/LATERAL Vj Sandhu MD [address] [place] [address] Xr Imaging Referral ID Status Reason Start Date Expiration Date V isits Requested Visits Authorized [id number] Closed Auto-Generate d Referral 03/29/2022 10/29/2022 1 1 [facility] for visit Narrative* Diagnostic Procedure Only (Routine) - Closed Specialty Diagnoses / Procedures Referred By Contac t Referred To Contact XR IMAGING Diagnoses Gastroesophageal reflux disease, unspecified whether esophagitis present Procedures XR UPPER GI ROUTINE DOUBLE CONTRAST/AIR RADIOLOGIC EXAM UPR GI TRC DOUBLE CONTRAST STUDY Mitra Saavedra MD [address] [facility] [address] [place] [address] [place] [id number] Referral ID Status Reason Start Date Expiration Date V isits Requested Visits Authorized [id number] Closed Auto-Generate d Referral 08/02/2024 09/01/2025 1 1 [facility] for visit Narrative* Outpatient Procedure (Routine) - Closed Specialty Diagnoses / Procedures [facility] Referred To Contact [facility] Diagnoses Screening for colon cancer Procedures COLONOSCOPY SCREENING COLONOSCOPY FLX DX W/COLLJ SPEC WHEN PFRMD Steven Peoples MD 1 [facility] [address] [place] [address] [facility] [place] [id number] Referral ID Status Reason Start Date Expiration Date V isits Requested Visits Authorized [id number] Closed Auto-Generate d Referral 09/28/2024 08/20/2025 1 1 [facility] for visit Narrative* Outpatient Procedure (Routine) - Closed Specialty Diagnoses / Procedures [facility] Referred To Contact [facility] Diagnoses Gastroesophageal reflux disease, unspecified whether esophagitis present Procedures EGD DIAGNOSTIC EGD DIAGNOSTIC ESOPHAGOGASTRODUODENOSC OPY TRANSORAL DIAGNOSTIC Mitra Saavedra MD 1 [facility] [address] [place] [address] [facility] [place] [id number] [place] [id number] Referral ID Status Reason Start Date Expiration Date V isits Requested Visits Authorized [id number] Closed Auto-Generate d Referral 08/02/2024 08/02/2025 1 1 [facility] Summary Purpose Family History No Family History Records Found Relationship Condition Age at Onset Recorded Date/T christine Not Specified Diabetes mellitus Unknown Hypertension Unknown Advance Directives No Advanced Directives Records Found Advance Directive Response Recorded Date/ Time Living Will No November 24 5:02pm Power of Customer Business Manager No November 24, 2020 5:02pm Documents on File Type Date Recorded Patient Health Aid Expl anation Advance Directive(s) 06/25/2021 11:44 AM Advance Directive(s) 05/07/2021 6:25 AM Advance Directive(s) 04/10/2021 8:03 AM Advance Directive Response Recorded Date/ Time Living Will No December 03 8:51pm Power of Customer Business Manager No December 03, 2022 8:51pm Advance Directive Response Recorded Date/ Time Living Will No December 25 2:24pm Do you have a Healthcare Power of Customer Business Manager? No December 25, 2024 2:24pm Date Activated Date Inactivated Comments 04/02/2025 3:09 PM 04/04/2025 9:06 PM Question Answer Comments Full Code Order Discussed With: Patient Assessments Diagnosis Radiculopathy of lumbar region- Primary Thoracic or lumbosacral neuritis or radiculitis, unspecified Diagnosis Spinal stenosis of lumbar region without neurogenic claudication Spinal stenosis, lumbar region, without neurogenic claudication Diagnosis Spinal stenosis of lumbar region without neurogenic claudication- Primary Spinal stenosis, lumbar region, without neurogenic claudication Diagnosis Spondylolisthesis of lumbar region- Primary Acquired spondylolisthesis Diagnosis Lumbar spondylosis- Primary Lumbosacral spondylosis without myelopathy Obesity, Class I, BMI 30-34.9 Obesity, unspecified Diagnosis Spondylolisthesis of lumbar region- Primary Acquired spondylolisthesis Instructions * Patient Instructions* Alejandrina Rodriguez (Public Health Representative) - 09/24/2020 10:02 AM EST PROCEDURE DISCHARGE INSTRUCTIONS 09/24/2020 Francia Gama 1960 Physician: Johnnie López MD Procedure: Epidural Steroid Injection: Lumbar (transforaminal/Interlaminar/Caudal) Post Procedure Instructions: If sedation not given, no driving for 3 hours after the procedure., If sedation given, no driving the day of the procedure., Rest the day of the procedure., You may resume normal activities the day after the procedure, as tolerated., Pain should gradually subside over the next 2-3 weeks., Avoid movements that may aggravate pain., Apply cold compresses to injection site if needed., If medically acceptable, take over the counter anti-inflammatories such as ibuprofen or Aleve if needed for post procedure discomfort., No hot baths, hot tubs or hot compresses for 24 hours. and Increased pain the day after the procedure may occur. If you have any of the following signs or symptoms, please call our office at ? Fever and/or chills ? Swelling and/or drainage from injection site ? New pain that is different than your normal pain (other than soreness at the site of the procedure) ? Stiff neck ? Shortness of breath ? Severe increase in pain ? Motor dysfunctions, such as difficulty walking, bowel or bladder dysfunction and/or incontinence ? Headache that is severe, light sensitive or develops when changing positions (positional headache) ? Nausea and/or vomiting accompanied by headache that started 24-48 hours after the procedure If you have any emergent concerns, please call 911 or go to your local emergency room. Please also contact our office to let us know you will be seeking emergency care and why. documented in this encounter History of Present Illness * Johnnie López - 09/24/2020 10:29 AM EST Subjective HPI Francia Gama is a 60 year old female who presents with leg pain ehre for vernon today. \ ROS PAST MEDICAL HISTORY Diagnosis Date Essential hypertension, benign PAST SURGICAL HISTORY Procedure Laterality Date LAP CHOLECYSTECT/CHOLANGIOGRAPHY 09/10/2008 nORMAL ioc PAST SURGICAL HISTORY OF 05/13 fusion left wrist-partial PAST SURGICAL HISTORY OF 04/12 fusion left wrist-partial TOTAL ABDOM HYSTERECTOMY 10/13 Hysterectomy, ANNA TREAT ECTOPIC PREG,NON REMVAL Ectopic FAMILY HISTORY Problem Relation Age of Onset Cancer Paternal Grandmother Cancer Maternal Grandfather Coronary Artery Disease Father Heart Maternal Grandmother Social History Tobacco Use Smoking status: Former Smoker Smokeless tobacco: Never Used Tobacco comment: social-1ppw Substance Use Topics Alcohol use: Yes Comment: socially Drug use: No Current Meds pregabalin (LYRICA) 150 mg capsule take 1 capsule by mouth twice a day nabumetone (RELAFEN) 750 mg tablet Take 750 mg by mouth twice daily. losartan potassium (LOSARTAN ORAL) Take by mouth. amlodipine besylate (AMLODIPINE ORAL) Take by mouth. bupropion HCl (WELLBUTRIN ORAL) Take by mouth. METOPROLOL SR 100 MG 24 HR TAB Take one(1) tablet daily. citalopram hydrobromide(CELEXA 40 MG TAB) Take one(1) tablet daily. omeprazole(PRILOSEC 10 MG CAP) Take one(1) capsule daily. apixaban (ELIQUIS) 5 mg tab(s) Take by mouth twice daily. Objective BP 141/95 Pulse 62 Temp 36.5 C (97.7 F) Resp 16 Ht 165.1 cm (5' 5) Wt 91.6 kg (202 lb) SpO2 98% BMI 33.61 kg/m Physical Exam Constitutional: She is oriented to person, place, and time and well-developed, well-nourished, and in no distress. No distress. HENT: Head: Normocephalic. Eyes: Right eye exhibits no discharge. Left eye exhibits no discharge. Cardiovascular: Normal rate. Pulmonary/Chest: Effort normal. Neurological: She is alert and oriented to person, place, and time. Skin: Skin is dry. No lesion noted. She is not diaphoretic. No pallor. Psychiatric: Mood, memory, affect and judgment normal. Nursing note and vitals reviewed. Assessment and Plan I had a nice discussion with the patient today about their current pain and the pathology that could be causing it. We discussed different treatment options. Our plan will be as follows: 1. Spinal stenosis of lumbar region without neurogenic claudication Left L4, L5 LTR Risks, benefits, and alternatives were discussed with the patient prior to the procedure. - INJ TRANSFORAMINAL EPID ANES/STER LS SINGL - INJ TRANSFRAM EPID ANES/STER LS MULTI - dexAMETHasone sodium phosphate 10 mg injection (DECADRON) - lidocaine (PF) 5 mg/mL (0.5 %) 15 mg injection (XYLOCAINE) - lidocaine (PF) 20 mg/mL (2 %) 200 mg injection (XYLOCAINE) - iohexol 900 mg IV injection (OMNIPAQUE 300) * Alejandrina Rodriguez (Shreyas) - 09/24/2020 10:06 AM EST Subjective HPI Review of Systems Eyes: Negative for blurred vision and double vision. Respiratory: Negative for shortness of breath. Cardiovascular: Negative for chest pain and leg swelling. Gastrointestinal: Negative for constipation, diarrhea, nausea and vomiting. Genitourinary: Negative for dysuria. Skin: Positive for itching. Neurological: Positive for tingling. Negative for dizziness, weakness and headaches. Endo/Heme/Allergies: Bruises/bleeds easily. Psychiatric/Behavioral: Positive for depression. Negative for suicidal ideas. The patient is nervous/anxious. PAST MEDICAL HISTORY Diagnosis Date Essential hypertension, benign PAST SURGICAL HISTORY Procedure Laterality Date LAP CHOLECYSTECT/CHOLANGIOGRAPHY 09/10/2008 nORMAL ioc PAST SURGICAL HISTORY OF 05/13 fusion left wrist-partial PAST SURGICAL HISTORY OF 04/12 fusion left wrist-partial TOTAL ABDOM HYSTERECTOMY 10/13 Hysterectomy, ANNA TREAT ECTOPIC PREG,NON REMVAL Ectopic FAMILY HISTORY Problem Relation Age of Onset Cancer Paternal Grandmother Cancer Maternal Grandfather Coronary Artery Disease Father Heart Maternal Grandmother Social History Tobacco Use Smoking status: Former Smoker Smokeless tobacco: Never Used Tobacco comment: social-1ppw Substance Use Topics Alcohol use: Yes Comment: socially Drug use: No Current Meds pregabalin (LYRICA) 150 mg capsule take 1 capsule by mouth twice a day nabumetone (RELAFEN) 750 mg tablet Take 750 mg by mouth twice daily. losartan potassium (LOSARTAN ORAL) Take by mouth. amlodipine besylate (AMLODIPINE ORAL) Take by mouth. bupropion HCl (WELLBUTRIN ORAL) Take by mouth. METOPROLOL SR 100 MG 24 HR TAB Take one(1) tablet daily. citalopram hydrobromide(CELEXA 40 MG TAB) Take one(1) tablet daily. omeprazole(PRILOSEC 10 MG CAP) Take one(1) capsule daily. apixaban (ELIQUIS) 5 mg tab(s) Take by mouth twice daily. Objective Temp 36.5 C (97.7 F) Ht 165.1 cm (5' 5) Wt 91.6 kg (202 lb) BMI 33.61 kg/m Physical Exam documented in this encounter* Vj Sandhu - 07/23/2020 10:15 AM EDT NEUROSURGERY FOLLOW UP OFFICE NOTE Vj Sandhu MD Date of visit: July 23, 2020 Patient Name: Ms.Alicia Gama Date of : 1960 Current Age: [age] year old Sex: female MRN/E# [id number] Last Office Visit: 07/04/2020 Chief Complaint: Patient presents with: Established Patient SUBJECTIVE: Ms. Gama presents to the office today for a follow up visit with imaging for evaluation of low back pain. She was last seen on 07/04/2020 with complaints of worsening low back pain into the left groin, left posterior/lateral lower extremity. Additionally, the patient states she had a fall the first week of June and was diagnosed with a DVT for which she is taking Eliquis. She was sent for updating imaging of the lumbar spine given her worsening symptoms. Today she states symptoms are unchanged. . She presents today for evaluation and plan of care. Symptoms: low back pain into the left groin & posterior/lateral leg PREVIOUS CONSERVATIVE TREATMENTS: Pain management NSAIDs Ice Injections PREVIOUS SURGERY: SURGERY #1: L4/5 decompression 07/24/2015 Dr. Hunter PAIN EVALUATION 07/23/2020 1103 Pain Level: 6 Pain Location: Back-Lower Description: Aching;Stabbing;Spasm;Pressure Duration Units: Years Frequency: Intermittent Intervention: Medication PAST MEDICAL HISTORY Diagnosis Date Essential hypertension, benign PAST SURGICAL HISTORY Procedure Laterality Date LAP CHOLECYSTECT/CHOLANGIOGRAPHY 09/10/2008 nORMAL ioc PAST SURGICAL HISTORY OF 05/13 fusion left wrist-partial PAST SURGICAL HISTORY OF 04/12 fusion left wrist-partial TOTAL ABDOM HYSTERECTOMY 10/13 Hysterectomy, ANNA TREAT ECTOPIC PREG,NON REMVAL Ectopic FAMILY HISTORY Problem Relation Age of Onset Cancer Paternal Grandmother Cancer Maternal Grandfather Coronary Artery Disease Father Heart Maternal Grandmother ALLERGIES Allergen Reactions Kiwi Anaphylaxis Latex, Natural Rubb* Hives Morphine Itching Tetracycline Vomiting Current Outpatient Medications Medication Sig Dispense Refill apixaban (ELIQUIS) 5 mg tab(s) Take by mouth twice daily. nabumetone (RELAFEN) 750 mg tablet Take 750 mg by mouth twice daily. pregabalin (LYRICA) 150 mg capsule Take 1 capsule by mouth twice daily for 30 days. Do not start before April 18, 2020. 60 capsule 1 losartan potassium (LOSARTAN ORAL) Take by mouth. amlodipine besylate (AMLODIPINE ORAL) Take by mouth. bupropion HCl (WELLBUTRIN ORAL) Take by mouth. METOPROLOL SR 100 MG 24 HR TAB Take one(1) tablet daily. 0 citalopram hydrobromide(CELEXA 40 MG TAB) Take one(1) tablet daily. 0 omeprazole(PRILOSEC 10 MG CAP) Take one(1) capsule daily. 0 No current facility-administered medications for this visit. REVIEW OF SYSTEMS Review of Systems Constitutional: Negative for chills, diaphoresis (Negative for night sweats.) and fever. HENT: Negative for ear discharge and rhinorrhea. Eyes: Negative for discharge. Respiratory: Negative for cough, shortness of breath and wheezing. Cardiovascular: Negative for chest pain, palpitations and leg swelling. Gastrointestinal: Negative for constipation, diarrhea, nausea and vomiting. Endocrine: Negative for cold intolerance and heat intolerance. Genitourinary: Negative for frequency. Negative for urinary incontinence and urinary retention. Musculoskeletal: Positive for back pain. Negative for joint swelling, myalgias and neck pain. Skin: Negative for rash (Negative for hives and skin lesions.). Allergic/Immunologic: Negative for environmental allergies and food allergies. Negative for contact allergy, seasonal allergies. Neurological: Negative for dizziness, seizures, syncope, weakness, light- headedness, numbness (Negative for numbness in extremities.) and headaches. Hematological: Does not bruise/bleed easily. Psychiatric/Behavioral: The patient is not nervous/anxious. Negative for depression. OBJECTIVE: BP 117/78 Pulse 56 Temp 98 Resp 16 Ht 5' 5 (1.65m) Wt 204 lb (92.5kg) SpO2 94% BMI 33.95 kg/(m^2). PHYSICAL EXAM: Mental State : Alert, memory function unremarkable. Attention span and concentration normal for patient's age. Speech normal, no receptive or expressive speech deficit. Recent and remote memory normal. Orientation : Oriented to person, place and time. Higher Cortical Function : Intact speech and language. Spontaneous speech and comprehension normal.Fund of knowledge intact for pt level of education. Cranial Nerves : II: No visual field cut no blurring, Makes and sustains eye contact III, IV, : Normal, no double vision or drooping. Pupils equal and reactive to light. Extraocularmuscles intact. No nystagmus V: Normal sensation on the face, normal jaw movements VII: No paresis on either side VIII: No gross hearing deficit IX: Good and equal shoulder shrugs XII: Tongue midline, no fasciculations Sensory: Normal Sensation in upper and lower extremities and trunk to touch and noxious stimuli. Motor: Normal muscle tone and bulk. No tremor or uncontrollable movements. No spasticity or tremor. Strength: Upper Extremities : R L Deltoid 5/5 5/5 Biceps 5/5 5/5 Triceps 5/5 5/5 Wrist Ext 5/5 5/5 Wrist Flx 5/5 5/5 Hand Int 5/5 5/5 Lower Extremities : Hip Flexors 5/5 5/5 Hip Extensors 5/5 5/5 Hip Abductors 5/5 5/5 Straight leg Neg Neg Ankle dorsiflex 5/5 5/5 Ankle Plantar 5/5 5/5 Heel Walking intact intact Toe Walking intact intact Reflexes : Biceps 2+ 2+ Triceps 2+ 2+ Wrist 2+ 2+ Patellar 2+ 2+ Achilles 2+ 2+ Fields's Neg Neg Tinel's Neg Neg Phalen's Neg Neg Cerebellar Function : Normal finger to nose. Normal rapid alternating movements. No ataxia. Negative Romberg. Gait and Station: Normal gait. No assistive device usage. Pulmonary: Lungs without cough, audible wheeze. Respirations unlabored. Cardiac: Regular rate and rhythm. No murmer, gallop or rub. Data Review IMAGING STUDIES: MRI of the lumbar spine on 07/23/2020 There is evidence of spondylolisthesis noted at the L4-5 level with resultant stenosis. Personal review of medical records: I reviewed with the patient, history, physical exam, the imagesand the chart. 1. Spondylolisthesis of lumbar region The patient returns today for follow-up. She has undergone a MRI of the lumbar spine that demonstrates L4-5 spondylolisthesis. I told her she might require surgical treatment. However, she states that her symptoms are slightly improved following a lumbar epidural injection. I told her to proceed with scheduling her second injection. Lungs her symptoms are improved, surgical treatment will not be recommended. If her symptoms worsen, then at that point, I will recommend a L4-5 transforaminal lumbar interbody fusion with pedicle fixation. All of her questions were addressed. She will contact me at her convenience depending on the outcome of her second injection. Vj Sandhu MD This note was partially generated using Relive voice recognition system, and there may be some incorrect words, spellings, and punctuation that were not noted in checking the note before saving. documented in this encounter* Vj Sandhu - 07/04/2020 12:00 PM EDT NEUROSURGERY FOLLOW UP OFFICE NOTE Vj Sandhu MD Date of visit: July 04, 2020 Patient Name: Ms.Alicia Gama Date of : 1960 Current Age: [age] year old Sex: female MRN/E# [id number] Last Office Visit: Visit date not found Chief Complaint: No chief complaint on file. SUBJECTIVE: Ms. Gama presents to the office today for a follow up visit with imaging for evaluation of low back pain. She was last seen on 11/15/2019 with complaints of worsening low back pain into the left leg. She had been working with pain management and had injections without significant improvement of her symptoms. She continued to experience low back pain into the left groin, left gluteal region andthrough the left posterior/lateral aspect of the left leg to the foot. She described dropping her left foot and having difficulty walking, especially when her pain is severe. An MRI of the lumbar spine was reviewed and demonstrated severe lumbar stenosis at L4-5 without evidence of spondylolisthesis. It was recommended that she undergo an L4/L5 laminectomy. Since her last visit she states symptoms are about the same. She states she fell the first week of June and caused a DVT which she is on Eliquis 5mg twice a day now. She has not been back to pain management for injections as she is interested in pursuing surgery. She presents today for evaluation and plan of care. Symptoms: low back pain into the left groin & posterior/lateral leg PREVIOUS CONSERVATIVE TREATMENTS: Pain management NSAIDs Ice Injections PREVIOUS SURGERY: SURGERY #1: L4/5 decompression 07/24/2015 Dr. Hunter PAIN EVALUATION No data found in the last 1 encounters. PAST MEDICAL HISTORY Diagnosis Date Essential hypertension, benign PAST SURGICAL HISTORY Procedure Laterality Date LAP CHOLECYSTECT/CHOLANGIOGRAPHY 09/10/2008 nORMAL ioc PAST SURGICAL HISTORY OF 05/13 fusion left wrist-partial PAST SURGICAL HISTORY OF 04/12 fusion left wrist-partial TOTAL ABDOM HYSTERECTOMY 10/13 Hysterectomy, ANNA TREAT ECTOPIC PREG,NON REMVAL Ectopic FAMILY HISTORY Problem Relation Age of Onset Cancer Paternal Grandmother Cancer Maternal Grandfather Coronary Artery Disease Father Heart Maternal Grandmother ALLERGIES Allergen Reactions Kiwi Anaphylaxis Latex, Natural Rubb* Hives Morphine Itching Tetracycline Vomiting Current Outpatient Medications Medication Sig Dispense Refill pregabalin (LYRICA) 150 mg capsule Take 1 capsule by mouth twice daily for 30 days. Do not start before April 18, 2020. 60 capsule 1 losartan potassium (LOSARTAN ORAL) Take by mouth. amlodipine besylate (AMLODIPINE ORAL) Take by mouth. bupropion HCl (WELLBUTRIN ORAL) Take by mouth. METOPROLOL SR 100 MG 24 HR TAB Take one(1) tablet daily. 0 citalopram hydrobromide(CELEXA 40 MG TAB) Take one(1) tablet daily. 0 omeprazole(PRILOSEC 10 MG CAP) Take one(1) capsule daily. 0 No current facility-administered medications for this visit. REVIEW OF SYSTEMS Review of Systems Constitutional: Negative for chills, diaphoresis and fever. HENT: Negative for ear pain, sore throat, tinnitus and voice change. Eyes: Negative for photophobia, pain and visual disturbance. Respiratory: Negative for cough, shortness of breath and wheezing. Cardiovascular: Negative for chest pain, palpitations and leg swelling. Gastrointestinal: Negative for diarrhea, nausea and vomiting. Endocrine: Negative for cold intolerance and heat intolerance. Genitourinary: Negative for difficulty urinating, dysuria and enuresis. Musculoskeletal: Positive for back pain and gait problem. Negative for neck pain. Allergic/Immunologic: Negative for environmental allergies and food allergies. Neurological: Negative for dizziness, weakness and numbness. Hematological: Negative for adenopathy. Bruises/bleeds easily. Psychiatric/Behavioral: Negative for agitation and confusion. The patient is not nervous/anxious. OBJECTIVE: There were no vitals taken for this visit. Physical Exam Constitutional: She is well-developed, well-nourished, and in no distress. HENT: Head: Normocephalic. Eyes: Pupils are equal, round, and reactive to light. Neck: Normal range of motion. Pulmonary/Chest: Effort normal. Abdominal: Soft. Musculoskeletal: Normal range of motion. Neurological: She is alert. Skin: Skin is warm. Neurological Exam Mental Status Alert. Cranial Nerves CN III, IV, : Pupils equal round and reactive to light bilaterally. Motor Normal muscle bulk throughout. Normal muscle tone. Right Left Hip flexion 5 5 Knee flexion 5 5 Knee extension 5 5 Plantarflexion 5 5 Dorsiflexion 5 5 Positive left straight leg raise Sensory Sensation is intact to light touch, pinprick, vibration and proprioception in all four extremities. Reflexes Right Left Patellar 1+ 2+ Data Review Personal review of medical records: I reviewed with the patient, history, physical exam, the imagesand the chart. 1. Lumbar spondylosis The patient returns today for follow-up. She has not been seen in nearly 9 months. She complains ofworsening symptoms in her back and legs. I told her that her last imaging studies are nearly 10-11 months old and a such, she needs to undergo a new MRI and plain radiographs of the lumbar spine. Shewill have these done and return to see me at her convenience. - MRI LUMBAR SPINE WO/W IVCON; Future - iv contrast (will be provided with radiology test); MRI LSP Inject, intravenously, once for 1 dose. No IV access, insert saline lock prior to the beginning of sedation, infusion, injection of imaging exam. Discontinue saline lock post exam. If Pt. has a central line or IVAD, may access for administration according to line specific nursing protocol. Once exam is complete flush line and de-accessaccording to line specific nursing protocol in the MR contrast administration guidelines link. Dispense: 1 Each; Refill: 0 Vj Sandhu MD This note was partially generated using Relive voice recognition system, and there may be some incorrect words, spellings, and punctuation that were not noted in checking the note before saving. documented in this encounter* Vj Sandhu - 02/10/2021 11:15 AM EDT NEUROSURGERY FOLLOW UP OFFICE NOTE Vj Sandhu MD Date of visit: February 10, 2021 Patient Name: Ms.Alicia Gama Date of : 1960 Current Age: [age] year old Sex: female MRN/E# [id number] Last Office Visit: Visit date not found Chief Complaint: Patient presents with: Established Patient SUBJECTIVE: Ms. Gama presents to the office today for a follow up visit to discuss surgery. She was last seen on 07/23/2020 with complaints of worsening low back pain into the left groin, posterior and lateral lower extremity. Imaging of the lumbar spine was reviewed and demonstrated L4/5 spondylolisthesis.Given her symptoms were improving & she was scheduled for an additional injection, surgical intervention was not recommended. She was asked to follow up if her symptoms worsened. Today she statesher second injections did not benefit her as well as the first. She has been experiencing worseninglow back pain into the left groin with intermittent pain into the left lower extremity. She wishes to proceed with surgery at this time & presents for evaluation and plan of care. Symptoms: low back pain into the left groin & posterior/lateral leg PREVIOUS CONSERVATIVE TREATMENTS: Pain management NSAIDs Ice Injections PREVIOUS SURGERY: SURGERY #1: L4/5 decompression 07/24/2015 Dr. Hunter PAIN EVALUATION 02/10/2021 1123 Pain Level: 6 Pain Location: Back-Lower Description: Aching;Sore;Shooting Duration Units: Years Frequency: Continuous Intervention: Medication PAST MEDICAL HISTORY Diagnosis Date Essential hypertension, benign PAST SURGICAL HISTORY Procedure Laterality Date LAP CHOLECYSTECT/CHOLANGIOGRAPHY 09/10/2008 nORMAL ioc PAST SURGICAL HISTORY OF 05/13 fusion left wrist-partial PAST SURGICAL HISTORY OF 04/12 fusion left wrist-partial TOTAL ABDOM HYSTERECTOMY 10/13 Hysterectomy, ANNA TREAT ECTOPIC PREG,NON REMVAL Ectopic FAMILY HISTORY Problem Relation Age of Onset Cancer Paternal Grandmother Cancer Maternal Grandfather Coronary Artery Disease Father Heart Maternal Grandmother ALLERGIES Allergen Reactions Kiwi Anaphylaxis Latex, Natural Rubb* Hives Morphine Itching Tetracycline Vomiting Current Outpatient Medications Medication Sig Dispense Refill famotidine (PEPCID) 40 mg tablet Take 40 mg by mouth once daily. pregabalin (LYRICA) 150 mg capsule Take 1 capsule by mouth twice daily for 30 days. 60 capsule 1 apixaban (ELIQUIS) 5 mg tab(s) Take by mouth twice daily. losartan potassium (LOSARTAN ORAL) Take by mouth. amlodipine besylate (AMLODIPINE ORAL) Take by mouth. bupropion HCl (WELLBUTRIN ORAL) Take by mouth. METOPROLOL SR 100 MG 24 HR TAB Take one(1) tablet daily. 0 citalopram hydrobromide(CELEXA 40 MG TAB) Take one(1) tablet daily. 0 nabumetone (RELAFEN) 750 mg tablet Take 750 mg by mouth twice daily. (Patient not taking: Reported on 02/10/2021 ) omeprazole(PRILOSEC 10 MG CAP) Take one(1) capsule daily. (Patient not taking: Take one(1) capsule daily.) 0 No current facility-administered medications for this visit. REVIEW OF SYSTEMS Review of Systems Constitutional: Negative for chills, diaphoresis and fever. HENT: Negative for congestion, ear pain and sinus pressure. Eyes: Negative for discharge and redness. Respiratory: Negative for cough, shortness of breath and wheezing. Cardiovascular: Negative for chest pain, palpitations and leg swelling. Gastrointestinal: Negative for constipation, diarrhea and nausea. Endocrine: Negative for cold intolerance and heat intolerance. Genitourinary: Negative for difficulty urinating, frequency and urgency. Musculoskeletal: Positive for back pain and gait problem. Negative for neck pain. Skin: Negative for rash and wound. Allergic/Immunologic: Positive for food allergies. Negative for environmental allergies. Neurological: Positive for weakness. Negative for dizziness and numbness. Hematological: Bruises/bleeds easily. Psychiatric/Behavioral: Negative for agitation. The patient is nervous/anxious. OBJECTIVE: BP 128/87 Pulse 63 Temp 97.7 Resp 16 Ht 5' 5 (1.65m) Wt 198 lb (89.8kg) SpO2 98% BMI32.95 kg/(m^2). Physical Exam HENT: Head: Normocephalic and atraumatic. Right Ear: External ear normal. Left Ear: External ear normal. Eyes: Conjunctiva/sclera: Conjunctivae normal. Pulmonary: Effort: Pulmonary effort is normal. Musculoskeletal: General: Normal range of motion. Cervical back: Normal range of motion. Skin: General: Skin is warm and dry. Neurological: Mental Status: She is alert and oriented to person, place, and time. Gait: Gait is intact. Psychiatric: Mood and Affect: Mood and affect normal. Neurological Exam Mental Status Alert. Gait Normal gait. Motor Normal muscle bulk throughout. Normal muscle tone. Right Left Hip flexion 5 4 Knee flexion 5 5 Knee extension 5 4 Plantarflexion 5 5 Dorsiflexion 5 5 Positive left straight leg raise Sensory Sensation is intact to light touch, pinprick, vibration and proprioception in all four extremities. Reflexes Right Left Patellar 2+ 2+ Data Review Personal review of medical records: I reviewed with the patient, history, physical exam, the imagesand the chart. 1. Spondylolisthesis of lumbar region Patient returns today for follow-up. She states that her symptoms are significantly worsening. She was also no longer on blood thinners. She wants to proceed with surgical treatment. I told her she would need a lumbar reexploration at L4-5 with transforaminal interbody fusion and pedicle fixation. The procedure, risks, benefits, and alternatives were discussed with her in great detail. She needs medical clearance before surgery can be scheduled. All of her questions were addressed in detail. Vj Sandhu MD This note was partially generated using Relive voice recognition system, and there may be some incorrect words, spellings, and punctuation that were not noted in checking the note before saving. documented in this encounter Medications Administered Section Inactive Administered Medications - up to 3 most recent administrations Medication Order MAR Action Action Date Dose Rate Site dexAMETHasone sodium phosphate 10 mg injection (DECADRON) 10 mg, OTHER, ONCE, 1 dose, Tue09/24/20 at 1030 Given by [facility] 09/24/2020 1:34 PM EST 10 mg iohexol 900 mg IV injection (OMNIPAQUE 300) 900 mg (3 mL), OTHER, ONCE, 1 dose, Tue09/24/20 at 1030 Given by [facility] 09/24/2020 1:35 PM EST 900 mg lidocaine (PF) 20 mg/mL (2 %) 200 mg injection (XYLOCAINE) 200 mg (10 mL), OTHER, ONCE, 1 dose, Tue09/24/20 at 1030 Given by [facility] 09/24/2020 1:32 PM EST 200 mg lidocaine (PF) 5 mg/mL (0.5 %) 15 mg injection (XYLOCAINE) 15 mg (3 mL), OTHER, ONCE, 1 dose, Tue09/24/20 at 1030 Given by [facility] 09/24/2020 1:34 PM EST 15 mg Reason for Referral Status Reason Specialty Diagnoses / Procedures Referred By Contact Referred To Contact Open Auto-Generated Referral MR IMAGING Diagnoses Lumbar spondylosis Procedures MRI LUMBAR SPINE WO/W IVCON MRI, LUMBAR SPINE COMBO Vj Sandhu [address] [place] [address] Mr Imaging Status Reason Specialty Diagnoses / Procedures Referred By Contact Referred To Contact Pending Review PCP Requested Referral Diagnoses Spondylolisthesis of lumbar region Procedures ECG COMPLETE EKG WITH INTERPRETATION Vj Sandhu MD [address] [place] [address] Specialty Diagnoses / Procedures Referred By Contac t Referred To Contact [facility] Diagnoses Left leg pain Procedures CONSULT TO PHYSICAL THERAPY PHYSICAL THERAPY EVALUATION HIGH COMPLEX 45 MINS Paul Murcia, DO [address] [place] [address] [facility] [address] [place] [address] Referral ID Status Reason Start Date Expiration Date Visits Requested Visits Authorized [id number] Pending Review Auto-Generat ed Referral 04/02/2022 04/02/2023 1 1 Specialty Diagnoses / Procedures Referred By Contac t Referred To Contact Diagnoses Gastroesophageal reflux disease without esophagitis Paraesophageal hernia Hypertension, unspecified type Body mass index 30.0-30.9, adult Procedures CONSULT TO PRE-SURGICAL TESTING (AG) Mitra Saavedra MD [address] [facility] [address] [place] [address] Referral ID Status Reason Start Date Expiration Date Visits Requested Visits Authorized [id number] Authorized PCP Requested Referral 12/06/2024 03/06/2025 1 1 Chief Complaint and Reason for Visit Chief Complaint EORDER Chief Complaint EORDER HIP PAIN Chief Complaint FALL Chief Complaint Admit Date RASH December 25, 2024 11:43am Additional Source Comments INFORMATION SOURCE (unrecogn ized section and content) DATE CREATED AUTHOR 01/21/2019 [facility] DATE CREATED AUTHOR AUTHOR'S ORGANIZ ATION 01/26/2019 [facility] DATE CREATED AUTHOR AUTHOR'S ORGANIZ ATION 07/02/2021 [facility] DATE CREATED AUTHOR AUTHOR'S ORGANIZ ATION 01/26/2022 [facility] DATE CREATED AUTHOR AUTHOR'S ORGANIZ ATION 04/20/2025 [facility] DATE CREATED AUTHOR AUTHOR'S ORGANIZ ATION 04/30/2025 [facility] Source Comments (unrecognize d section and content) In the event this informatio n is protected by the Federal Confidentiality of Alcohol and Drug Abuse Patient Records regulations: The Federal rules restrict any use of the information to criminally investigate or prosecute any alcohol or drug abuse patient.[facility] the event this information is protected by the Federal Confidentiality of Alcohol and Drug Abuse Patient Records regulations: The Federal rules restrict any use of the information to criminally investigate or prosecute any alcohol or drug abuse patient.[facility] the event this information is protected by the Federal Confidentiality of Alcohol and Drug Abuse Patient Records regulations: The Federal rules restrict any use of the information to criminally investigate or prosecute any alcohol or drug abuse patient.[facility] the event this information is protected by the Federal Confidentiality of Alcohol and Drug Abuse Patient Records regulations: The Federal rules restrict any use of the information to criminally investigate or prosecute any alcohol or drug abuse patient.[facility] the event this information is protected by the Federal Confidentiality of Alcohol and Drug Abuse Patient Records regulations: The Federal rules restrict any use of the information to criminally investigate or prosecute any alcohol or drug abuse patient.[facility] the event this information is protected by the Federal Confidentiality of Alcohol and Drug Abuse Patient Records regulations: The Federal rules restrict any use of the information to criminally investigate or prosecute any alcohol or drug abuse patient.[facility]In the event this information is protected by the Federal Confidentiality of Alcohol and Drug Abuse Patient Records regulations: The Federal rules restrict any use of the information to criminally investigate or prosecute any alcohol or drug abuse patient.[facility] DaytonIn the event this information is protected by the Federal Confidentiality of Alcohol and Drug Abuse Patient Records regulations: The Federal rules restrict any use of the information to criminally investigate or prosecute any alcohol or drug abuse patient.[facility] DaytonIn the event this information is protected by the Federal Confidentiality of Alcohol and Drug Abuse Patient Records regulations: The Federal rules restrict any use of the information to criminally investigate or prosecute any alcohol or drug abuse patient.[facility] DaytonIn the event this information is protected by the Federal Confidentiality of Alcohol and Drug Abuse Patient Records regulations: The Federal rules restrict any use of the information to criminally investigate or prosecute any alcohol or drug abuse patient.[facility] DaytonIn the event this information is protected by the Federal Confidentiality of Alcohol and Drug Abuse Patient Records regulations: The Federal rules restrict any use of the information to criminally investigate or prosecute any alcohol or drug abuse patient.[facility] DaytonIn the event this information is protected by the Federal Confidentiality of Alcohol and Drug Abuse Patient Records regulations: The Federal rules restrict any use of the information to criminally investigate or prosecute any alcohol or drug abuse patient.[facility] DaytonIn the event this information is protected by the Federal Confidentiality of Alcohol and Drug Abuse Patient Records regulations: The Federal rules restrict any use of the information to criminally investigate or prosecute any alcohol or drug abuse patient.[facility] DaytonIn the event this information is protected by the Federal Confidentiality of Alcohol and Drug Abuse Patient Records regulations: The Federal rules restrict any use of the information to criminally investigate or prosecute any alcohol or drug abuse patient.[facility] DaytonIn the event this information is protected by the Federal Confidentiality of Alcohol and Drug Abuse Patient Records regulations: The Federal rules restrict any use of the information to criminally investigate or prosecute any alcohol or drug abuse patient.[facility] DaytonIn the event this information is protected by the Federal Confidentiality of Alcohol and Drug Abuse Patient Records regulations: The Federal rules restrict any use of the information to criminally investigate or prosecute any alcohol or drug abuse patient.[facility] DaytonIn the event this information is protected by the Federal Confidentiality of Alcohol and Drug Abuse Patient Records regulations: The Federal rules restrict any use of the information to criminally investigate or prosecute any alcohol or drug abuse patient.[facility] DaytonIn the event this information is protected by the Federal Confidentiality of Alcohol and Drug Abuse Patient Records regulations: The Federal rules restrict any use of the information to criminally investigate or prosecute any alcohol or drug abuse patient.[facility] DaytonIn the event this information is protected by the Federal Confidentiality of Alcohol and Drug Abuse Patient Records regulations: The Federal rules restrict any use of the information to criminally investigate or prosecute any alcohol or drug abuse patient.[facility] DaytonIn the event this information is protected by the Federal Confidentiality of Alcohol and Drug Abuse Patient Records regulations: The Federal rules restrict any use of the information to criminally investigate or prosecute any alcohol or drug abuse patient.[facility] DaytonIn the event this information is protected by the Federal Confidentiality of Alcohol and Drug Abuse Patient Records regulations: The Federal rules restrict any use of the information to criminally investigate or prosecute any alcohol or drug abuse patient.[facility] DaytonIn the event this information is protected by the Federal Confidentiality of Alcohol and Drug Abuse Patient Records regulations: The Federal rules restrict any use of the information to criminally investigate or prosecute any alcohol or drug abuse patient.[facility] DaytonIn the event this information is protected by the Federal Confidentiality of Alcohol and Drug Abuse Patient Records regulations: The Federal rules restrict any use of the information to criminally investigate or prosecute any alcohol or drug abuse patient.[facility] DaytonIn the event this information is protected by the Federal Confidentiality of Alcohol and Drug Abuse Patient Records regulations: The Federal rules restrict any use of the information to criminally investigate or prosecute any alcohol or drug abuse patient.[facility] DaytonIn the event this information is protected by the Federal Confidentiality of Alcohol and Drug Abuse Patient Records regulations: The Federal rules restrict any use of the information to criminally investigate or prosecute any alcohol or drug abuse patient.[facility] DaytonIn the event this information is protected by the Federal Confidentiality of Alcohol and Drug Abuse Patient Records regulations: The Federal rules restrict any use of the information to criminally investigate or prosecute any alcohol or drug abuse patient.[facility] DaytonIn the event this information is protected by the Federal Confidentiality of Alcohol and Drug Abuse Patient Records regulations: The Federal rules restrict any use of the information to criminally investigate or prosecute any alcohol or drug abuse patient.[facility] DaytonIn the event this information is protected by the Federal Confidentiality of Alcohol and Drug Abuse Patient Records regulations: The Federal rules restrict any use of the information to criminally investigate or prosecute any alcohol or drug abuse patient.[facility] DaytonIn the event this information is protected by the Federal Confidentiality of Alcohol and Drug Abuse Patient Records regulations: The Federal rules restrict any use of the information to criminally investigate or prosecute any alcohol or drug abuse patient.[facility] DaytonIn the event this information is protected by the Federal Confidentiality of Alcohol and Drug Abuse Patient Records regulations: The Federal rules restrict any use of the information to criminally investigate or prosecute any alcohol or drug abuse patient.[facility] DaytonIn the event this information is protected by the Federal Confidentiality of Alcohol and Drug Abuse Patient Records regulations: The Federal rules restrict any use of the information to criminally investigate or prosecute any alcohol or drug abuse patient.[facility] DaytonIn the event this information is protected by the Federal Confidentiality of Alcohol and Drug Abuse Patient Records regulations: The Federal rules restrict any use of the information to criminally investigate or prosecute any alcohol or drug abuse patient.[facility] DaytonIn the event this information is protected by the Federal Confidentiality of Alcohol and Drug Abuse Patient Records regulations: The Federal rules restrict any use of the information to criminally investigate or prosecute any alcohol or drug abuse patient.[facility] DaytonIn the event this information is protected by the Federal Confidentiality of Alcohol and Drug Abuse Patient Records regulations: The Federal rules restrict any use of the information to criminally investigate or prosecute any alcohol or drug abuse patient.[facility] DaytonIn the event this information is protected by the Federal Confidentiality of Alcohol and Drug Abuse Patient Records regulations: The Federal rules restrict any use of the information to criminally investigate or prosecute any alcohol or drug abuse patient.[facility] DaytonIn the event this information is protected by the Federal Confidentiality of Alcohol and Drug Abuse Patient Records regulations: The Federal rules restrict any use of the information to criminally investigate or prosecute any alcohol or drug abuse patient.[facility] Reason for Visit (unrecogniz ed section and content) Reason Onset Date Comments Patient Question 07/28/2020 Reason Comments Refill Request Reason Comments Patient Question Reason Comments Procedure Follow Up Reason Comments Procedure Left L4, L5 Transfor aminal VERNON Status Reason Specialty Diagnoses / Procedures Re ferred By Contact Referred To Contact Closed Pain Management / SPINE Diagnoses Radiculopathy, lumbar region M54.16 LEFT L4, L5 LTR. LATEX ALLERGRY. Procedures INJ TRANSFORAMINAL EPID ANES/STER LS SINGL INJ TRANSFRAM EPID ANES/STER LS MULTI EPIDURAL INJ TRANSFORMINAL Yulisa Key (Marriage Counselor Artificial Foliage Arranger), CREW TEAM MEMBER [address] [facility] [address] [place] [address] Johnnie López [address] [place] [address] Reason Comments Established Patient Reason Comments Anticoagulation Reason Comments Established Patient Status Reason Specialty Diagnoses / Procedures Referred By Contact Referred To Contact Closed Neurosurgery / NEUROSURGERY Diagnoses discuss surgery Procedures EST PATIENT VISIT LEVEL 4 EST PATIENT Julisa Cheung [address] [place] [address] Vj Sandhu [address] [place] [address] Reason Comments Consult hiatal hernia Reason Comments Appointment Reason Comments Established Patient Reason Comments Appointment EGD/MANO Specialty Diagnoses / Procedures Referred By Zhang fried Referred To Contact Diagnoses Paraesophageal hernia Hypertension, unspecified type Paraesophageal hernia [K44.9] Hypertension, unspecified type [I10] Procedures ESOPHAGEAL MOTILITY STUDY W/INTERP&RPT ESOPHAGEAL MANOMETRY Ak End[facility] [address] [facility] [place] [place] [address] Referral ID Status Reason Start Date Expiration Date Visits Re quested Visits Authorized [id number] 1 Reason Comments Established Patient Reason Comments Follow Up HBC follow up Reason Comments Hospital Follow Up Reason Comments Post Op Reason Comments Follow Up Reason Comments Follow Up After office appoint ment to discuss diet advancement Telephone Encounter - Vidal Malave - 07/29/2020 2:33 PM EDTTelephone Encounter - Yulisa Key (Marriage Counselor Margaret)MARGARTE - 07/29/2020 12:52 PM EDTTelephone Encounter - Vidal Malave - 07/28/2020 3:59 PM EDT Miscellaneous Notes (unrecog nized section and content) 07/29/2020 14:33:14 Left message on home phone number to call in to schedule her procedure. Vidal Malave I put it in. It might not go through because we have not seen her since January. But we will try 07/28/2020 15:59:51 Patient called in and would like another Left L4, L5 LTR injection. Please place order if okay. Vidal Malave documented in this encounter Left voicemail informing patient that her medication has been sent in to her pharmacy and that she will need an office visit prior to her next refill. Tona Benitez MA September 18, 2020 4:56 PM Need OV for next refill. documented in this encounter Steroid can elevate BPO for a short term. If it continues to stay elevate she should call her PCP. If she starts having any chest pain shortness of breath she should go to the ED. Patient called in stating that since her procedure yesterday her BP has been running high. She states the last time she took it was at 160/110. She states she already took her BP medication. Patient wants to know what she should do. Please advise. Sidney Jonas CMA documented in this encounter Called patient to follow up from injection on 09/24. Left a message for he/she to call the office documented in this encounter Patient stated she is only taking eliquis till 09/17/2020 due to having a blood clot. Patient is scheduled for her VERNON on 09/22/2020. Vidal Malave documented in this encounter Johnnie López - 09/24/2020 10:29 AM EST Procedure Notes (unrecognize d section and content) Lumbar Transforaminal Epidural Diagnosis: Spinal stenosis of lumbar region without neurogenic claudication (primary encounter diagnosis) Procedure: Lumbar Transforaminal Epidural Steroid Injection The patient was identified in the preoperative area. The procedure was discussed in detail including its risks, benefits, and alternatives. Signed consent was obtained and the patient agreed to proceed. The patient was brought to the [facility] procedure room and positioned in the prone position onto the procedure room table. A pillow was placed below the abdomen to decrease lumbar lordosis and a safety strap was placed across the legs. The lumbosacral region was then exposed, prepped, and draped in the usual sterile fashion using 2% Chloroprep scrub. Under fluoroscopic guidance in the AP, oblique, and lateral views, the left L4 and l5 foramina were identified. The skin and subcutaneous tissue along the intended needle trajectories were anesthetized with 5 ml of 2% preservative free lidocaine. Once adequate skin anesthesia was obtained, two 22-gauge Sprotte needles were advanced into the foramina. Once the desired needle tip location was achieved, the needles were aspirated and were negative for heme and CSF. Then 3mL of Omnipaque constrast dye was injected in divided doses under live fluoroscopy and showed appropriate epidural spread without intravascular or intrathecal uptake. After another negative aspiration, 10 mg of dexamethasone along with 3 ml of 0.5% preservative free lidocaine was injected in divided doses equally between the two needles. The needles were removed and bandages were applied. The patient tolerated the procedure well and was transferred back to the discharge area. The patient was monitored for 15 minutes and vital signs were stable. 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 Time Out: 1020 Confirmed patient name, date of , procedure site, laterality, and allergies Procedure Start: 1020 Procedure End: 102 documented in this encounter Rey Ahn)SHREYAS - 09/24/2020 10:34 AM Jacinta Almeida (Inderjit) - 09/24/2020 10:23 AM Alejandrina Darnell (Shreyas) - 09/24/2020 10:07 AM EST Nursing Notes (unrecognized section and content) Patient is alert and oriented Vitals: Diastolic/Systolic +/- 20mmHg Respirations: 12-18 Pulse: 60-100 SpO2 is greater than or equal to 90% Patient has no nausea or vomiting Patient has no dizziness Pain level is +/- 2 from initial evaluation Dressing, dry and intact with no evidence of bleeding Criteria has been met, patient is okay to be discharged per the physician. Dressing dry and intact, no drainage noted. The patient denies numbness, tingling, weakness, shortness of breath, dizziness or headache. Pain level 0/10. Patient given discharge instructions and escorted to transportation via ambulatory method. Patient left in good condition. Rey Ahn LPN Procedure to be performed: Left L4, L5 Transforaminal VERNON Patient was wheeled on stretcher from pre op bay to procedure room and assisted onto the procedure tablePatient s procedure was performed in an [facility] Procedure room. Pause completed at each level by provider to verify correct level and laterality placement Pressure was applied to patient s injection site(s) and bleeding was minimal. Patient had no complaint of shortness of breath, dizziness, headache, numbness, tingling, weakness or complications from procedure. Patient was assisted from the procedure table onto the stretcher and wheeled into a post op bay. Patient was advised a clinician will be to obtain another set of vitals. Are you on a blood thinner: no If yes, is a hold required: n/a Last dose of blood thinner: n/a INR Result today: n/a Do you require a Lovenox bridge:n/a Are you a diabetic:no Are you/or could you be : no Are you taking Xanax for the procedure: no Are you currently on an antibiotic: no Counsellors's Name: Paula Tinoco (Shreyas) Michael documented in this encounter Goals (unrecognized section and content) Goals may be documented in a n alternate sectionGoals may be documented in an alternate sectionGoals may be documented in an alternate sectionGoals may be documented in an alternate sectionGoals may be documented in an alternate section Care Teams (unrecognized sec tion and content) Paint Roller Assembler Relationship Specialty Start Date End Date Julisa Cheung MD [address] [place] [id number] PCP - General 07/19/08 Paint Roller Assembler Relationship Specialty Start Date End Date Julisa Cheung MD [address] [place] [address] [id number] PCP - General 07/19/08 Team Status: Active Member Role Status Dates Dr. Van Cheung MD Family Provider Active Dr. Van Cheung MD Primary Care Provider Activ e Team Status: Inactive Member Role Status Dates Dr. Van Cheung MD Primary Care Provider Activ e Dr. Bruno Wiley MD Emergency Provider Active Team Status: Inactive Member Role Status Dates Dr. Van Cheung MD Primary Care Provider, Atte nming Provider Active Paint Roller Assembler Relationship Specialty Start Date End Date Julisa Cheung MD [address] [place] [address] PCP - General 07/19/08 Paint Roller Assembler Relationship Specialty Start Date End Date Julisa Cheung MD [address] [place] [address] PCP - General 07/19/08 Paint Roller Assembler Relationship Specialty Start Date End Date Julisa Cheung MD [address] [place] [address] PCP - General 07/19/08 Paint Roller Assembler Relationship Specialty Start Date End Date Julisa Cheung MD [address] [place] [address] PCP - General 07/19/08 Paint Roller Assembler Relationship Specialty Start Date End Date Julisa Cheung MD [address] [place] [address] PCP - General 07/19/08 Paint Roller Assembler Relationship Specialty Start Date End Date Julisa Cheung MD [address] [place] [address] PCP - General 07/19/08 Paint Roller Assembler Relationship Specialty Start Date End Date Julisa Cheung MD [address] [place] [address] PCP - General 07/19/08 Paint Roller Assembler Relationship Specialty Start Date End Date Julisa Cheung MD [address] [place] [address] PCP - General 07/19/08 Paint Roller Assembler Relationship Specialty Start Date End Date Julisa Cheung MD [address] [place], [place] [id number] PCP - General 07/19/08 Paint Roller Assembler Relationship Specialty Start Date End Date Julisa Cheung MD [address] [facility] [place], [place] [address] PCP - General 07/19/08 Paint Roller Assembler Relationship Specialty Start Date End Date Julisa Cheung MD [address] [facility] [place], [place] [id number] PCP - General 07/19/08 Paint Roller Assembler Relationship Specialty Start Date End Date Julisa Cheung MD [address] [facility], [place] [phone] PCP - General 07/19/08 Team Status: Active Member Role Status Dates Dr. Julisa Cheung MD Primary Care Provider Acti ve Team Status: Inactive Member Role Status Dates Dr. Julisa Cheung MD Primary Care Provider Acti ve Start: December 25, 2024 End: December 25, 2024 Dr. Uche Kuhn MD Attending Provider Active S tart: December 25, 2024 End: December 25, 2024 Dr. Uche Kuhn MD Emergency Provider Active S tart: December 25, 2024 End: December 25, 2024 Team Status: Inactive Member Role Status Dates Dr. Julisa Cheung MD Primary Care Provider Acti ve Start: February 22, 2025 End: February 22, 2025 Dr. Julisa Cheung MD Attending Provider Active Start: February 22, 2025 End: February 22, 2025 Dr. Julisa Cheung MD Referring Provider Active Start: February 22, 2025 End: February 22, 2025 Paint Roller Assembler Relationship Specialty Start Date End Date Julisa Cheung MD [address] [facility], [place] [address] PCP - General 07/19/08 Paint Roller Assembler Relationship Specialty Start Date End Date Julisa Cheung MD [address] [place], [place] [address] PCP - General 07/19/08 Paint Roller Assembler Relationship Specialty Start Date End Date Julisa Cheung MD [address] [facility], [place] [id number] PCP - General 07/19/08 Paint Roller Assembler Relationship Specialty Start Date End Date Julisa Cheung MD [address] [place], [place] [phone] PCP - General 07/19/08 Paint Roller Assembler Relationship Specialty Start Date End Date Julisa Cheung MD [address] [place], [place] [address] PCP General 07/19/08 PRN Active and Recently Administ ered Medications (unrecognized section and content) Medication Order 10/10/2024 10/11/2024 10/12/2024 lidocaine urojet 2 % topical gel (GLYDO) (CANCELED) X (OR/PROCEDURE) PRN, Starting on Tue10/12/24 at 0807, Until Tue10/12/24 at 0828, Intraprocedure 0807 (Given - Provid er: Alexa Case RN - Comment: Given in Left nares preprocedure) NaCl 0.9% irrigation solution (CANCELED) X (OR/PROCEDURE) PRN, Starting on Tue10/12/24 at 0822, Until Tue10/12/24 at 0828, Intraprocedure 0822 (Given - Provid er: Alexa Case RN - Comment: Used intraprocedure) FOR RECORDS PERTAINING TO PATIENTS WHO ARE OR HAVE BEEN ENROLLED IN A CHEMICAL DEPENDENCY/SUBSTANCEABUSE PROGRAM, SOME INFORMATION MAY BE OMITTED. This clinical summary was aggregated from multiple sources. Caution should be exercised in using it in the provision of clinical care. This summary normalizes information from multiple sources, and as a consequence, information in this document may materially change the coding, format and clinical context of patient data. In addition, data may be omitted in some cases. CLINICAL DECISIONS SHOULD BE BASED ON THE PRIMARY CLINICAL RECORDS. [facility] [employer] [facility]. provides no warranty or guarantee of the accuracy or completeness of information in this document.
[2025-05-01 04:23] VITALS: BP 163/98; PULSE 82; RESP 18; TEMP 37.1; O2SAT 96
[2025-05-01] MEDS: HYDROcodone Bitartrate/Apap 5/325 Tablet PO (04:26)
== END 2025-05-01 04:37 | disposition home or self-care (01) ==
PROVIDERS: Emergency Provider Emergency Medicine; PCP Family Medicine; Visit Provider Emergency Medicine
DX: S62.331A Displaced fracture of neck of second metacarpal bone, left hand, initial encounter for closed fracture (principal); W01.198A Fall on same level from slipping, tripping and stumbling with subsequent striking against other object, initial encounter; M54.9 Dorsalgia, unspecified; I10 Essential (primary) hypertension; Z79.899 Other long term (current) drug therapy; Z87.891 Personal history of nicotine dependence
CPT/HCPCS: 29125; 73130; 99282

== ENCOUNTER 2025-05-28 13:28 | Emergency (ER) | payer BC, SELFPAY ==
[2025-05-28] VITALS (9 sets, daily range): BP systolic 102–157; BP diastolic 66–100; PULSE 65–80; RESP 16–18; TEMP 36.6–36.9; O2SAT 85–99; BMI 28.4
--- NOTE | 2025-05-28 14:06 | RAD_ITS ---
PROCEDURE: ELBOW MIN 3 VIEWS 05/28/2025 REASON FOR EXAM: TRAUMA TECHNIQUE: ELBOW MIN 3 VIEWS COMPARISON: None. FINDINGS: No acute fracture or dislocation. Alignment is anatomic. Preserved joint spaces. No joint effusion. No aggressive osseous lesion. No marked soft tissue swelling or radiopaque foreign body. RAD/Elbow min 3 Views IMPRESSION: No acute fracture or dislocation. Reading Location: [id number]
--- NOTE | 2025-05-28 14:06 | RAD_ITS ---
PROCEDURE: HUMERUS MIN 2 VIEWS 05/28/2025 REASON FOR EXAM: TRAUMA TECHNIQUE: HUMERUS MIN 2 VIEWS COMPARISON: None. FINDINGS: No acute fracture or dislocation. Alignment is anatomic. Preserved joint spaces. No aggressive osseous lesion. No marked soft tissue swelling or radiopaque foreign body. RAD/Humerus min 2 Views IMPRESSION: No acute fracture or dislocation. Reading Location: [id number]
--- NOTE | 2025-05-28 14:06 | RAD_ITS ---
PROCEDURE: SHOULDER MIN 2 VIEWS 05/28/2025 REASON FOR EXAM: TRAUMA TECHNIQUE: SHOULDER MIN 2 VIEWS COMPARISON: None. FINDINGS: No acute fracture or dislocation. Alignment is anatomic. Preserved joint spaces. No aggressive osseous lesion. No marked soft tissue swelling or radiopaque foreign body. RAD/Shoulder min 2 Views IMPRESSION: No acute fracture or dislocation. Reading Location: [id number]
--- NOTE | 2025-05-28 14:09 | ED.VIS.FALL ---
HPI HPI - Fall History of Present Illness Chief Complaint: Fall Informant: patient Occured/Mechanism Occurred: Today Usually ambulates: Without assistance Pain/Injury Pain Location: back and upper extremity Quality of Pain: Sharp Current Severity: Severe Maximum Severity: Severe Associated Symptoms Associated Symptoms: Negative for Parasthesias, Weakness, Loss of function, Inability to ambulate, Loss of consciousness or Amnesia Narrative Narrative: 64-year-old female with history of hypertension not on blood thinners. Was changing light bulbs in her garage she is about 3+ feet off the garage floor fell off the ladder injuring her right shoulder, right elbow and right posterior ribs. No LOC. Does not believe she hit her head. Denies any anterior chest pain or abdominal pain. [place] fine prior to the fall. Prior similar symptoms: No Recent Illness/Hospitalization: No PFSH [facility] Medical History Acute frontal sinusitis, unspecified Severe headache Fatigue Hypertension Home Medications ?Medication ?Instructions ?Recorded ?Last Taken ?Type amlodipine 10 mg tablet 10 mg PO DAILY 06/16/20 Unknown History bupropion HCl 300 mg 24 hr tablet, 150 mg PO DAILY 06/16/20 Unknown History extended release cholecalciferol (vitamin D3) 50 50 mcg PO QDAY 04/27/24 Unknown History mcg (2,000 unit) capsule duloxetine 30 mg capsule,delayed 30 mg PO QDAY 04/27/24 Unknown History release fluticasone propionate 50 2 spray intranasal QDAY 04/27/24 Unknown History mcg/actuation nasal spray,suspension losartan 100 1 tab PO QDAY 04/27/24 Unknown History mg-hydrochlorothiazide 12.5 mg tablet Allergy/AdvReac Type Severity Reaction Status Date / Time latex Allergy Mild Rash Verified 05/28/25 13:31 morphine Allergy Itching Verified 05/28/25 13:31 paroxetine (From Paxil) Allergy Unknown Verified 05/28/25 13:31 Tetracyclines Allergy Unknown Verified 05/28/25 13:31 Family History Other Diabetes Hypertension Surgical History History of Azul fundoplication Hx of cardiac catheterization H/O wrist surgery History of back surgery H/O section History of repair of hiatal hernia Hx of tonsillectomy Hx of cholecystectomy History of hysterectomy Social History Smoking Status: Former smoker alcohol intake: current alcohol intake frequency: a few times a month substance use type: marijuana ROS ROS ED ROS Narrative Denies recent illness. Constitutional Constitutional ED: Denies chills or fever(s) Eyes Eyes: Denies blurry vision ENT ENT ED: Denies ear pain Respiratory/Chest Respiratory/Chest: Denies cough Gastrointestinal Gastrointestinal: Denies abdominal pain Genitourinary Genitourinary ED: Denies dysuria Musculoskeletal Musculoskeletal: Denies arthralgias Integumentary Denies abscess Neurologic Neurologic: Denies headache(s) Psychiatric Psychiatric: Denies anxiety or depression Endocrine Endocrinology: Denies polydipsia Hematologic/Lymphatic Hematologic/Lymphatic: Denies easy bleeding, easy bruising or lymphadenopathy Allergic/Immunologic Allergic/Immunologic ED: Denies mouth swelling, tongue swelling or urticaria EXAM Physical Exam Narrative Exam Narrative: 64-year-old female lying in bed vital signs stable afebrile. Pulse ox 90% on room air no signs hypoxia complaining of pain. H EENT exam pupils round react light. Moist mucous membranes. Scalp nontender. Pupils round reactive light. No facial trauma. No hematoma or lacerations. C-spine and trachea nontender. Lungs clear to auscultation bilaterally. Anterior chest wall nontender. Heart regular rhythm no murmur. Rate about 75. Abdomen is soft, nontender, nondistended bilaterally without peritoneal signs. Pelvic girdle intact. Moving all 4 extremities. Left upper both lower are nontender. Tenderness of the right shoulder and right elbow with limited range of motion. 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 Left hand she has an old break at the left index MCP. Back. She has tenderness over her right posterior rib cage. No crepitus. Neurologically she is awake and alert. Answering questions and following commands. GCS 15. Const Vital Signs: 05/28/25 13:29 05/28/25 16:28 05/28/25 17:00 Temperature 97.9 F Temperature Source Oral Pulse Rate 75 65 77 Respiratory Rate 18 Respiratory Effort Respiratory Depth Respiratory Pattern Blood Pressure 102/74 141/83 H 142/82 H Blood Pressure Mean 83 102 102 Pulse Ox 98 97 Oxygen Delivery Method Room Air Room Air 05/28/25 18:00 05/28/25 18:00 05/28/25 19:00 Temperature 98.4 F Temperature Source Oral Pulse Rate 67 78 Respiratory Rate 18 16 Respiratory Effort Normal Respiratory Depth Normal Respiratory Pattern Normal Blood Pressure 142/76 H 154/66 H Blood Pressure Mean 98 95 Pulse Ox 97 98 Oxygen Delivery Method Room Air Room Air Room Air 05/28/25 20:00 05/28/25 21:00 Temperature Temperature Source Pulse Rate 80 70 Respiratory Rate 18 18 Respiratory Effort Respiratory Depth Respiratory Pattern Blood Pressure 151/89 H 156/87 H Blood Pressure Mean 109 110 Pulse Ox 91 85 Oxygen Delivery Method Room Air Room Air Positive well nourished and well developed; Negative for cachectic, contractures or unkempt General Appearance ED: well developed; Negative for unkempt, cachectic, contractures or NAD Nutritional Appearance: Negative for cachectic HEENT atraumatic; Negative for trauma, contusion, hematoma or tenderness Eyes PERRL and EOMs intact bilaterally Neck no lymphadenopathy and supple Chest Wall inspection of chest normal and palpation of chest normal Resp normal respiratory effort, no retractions and clear to auscultation bilaterally Auscultation: Negative for rales, rhonchi or wheezes Cardio regular rate, regular rhythm, S1 normal heart sound, S2 normal heart sound and no murmurs GI non-tender, non-distended and no masses Inspection: Negative for abdominal distention Palpation: soft; Negative for guarding or rebound tenderness present Back/Spine no CVA tenderness Neuro oriented x3, CN's II-XII intact bilaterally, moves all extremities and no focal motor deficits [place] Coma Scale: document GCS findings Spontaneous Obeys Commands Oriented 15 Sensorium / Orientation: alert, oriented to person, oriented to place and oriented to time; Negative for orientation impaired Motor Exam: strength 5/5 throughout Psych mental status grossly normal and thought process normal Appearance: Negative for unkempt Skin Lesions: no lesions Rashes: no rashes MDM MDM MDM Narrative Medical decision making narrative: 64-year-old female fell about 3 a feet to the garage floor off a ladder. Concern for right shoulder injury, right elbow injury and right posterior ribs. To be given Dilaudid for pain and Zofran. Was performed CAT scan of her chest and abdomen will be obtained. X-rays of the right shoulder, humerus and elbow. Screening labs. Repeat exam at 4:05 PM. Patient is resting more comfortably the Dilaudid has helped her pain. She still having pain she will be given another half milligram Dilaudid. Repeat exam patient is doing well at 6:20 PM. We discussed her test results. Given her multiple rib fractures and pulmonary contusion I think she needs admitted. She does not want to be transferred outside of [facility]. I will speak to the hospitalist to see if they will admit her. The compression fractures may be new or old but the patient thinks they are most likely old. Patient doing well at 7:30 PM. She will be given additional dose of 1/2 mg Dilaudid. Hospitalist felt was in her best interest to go to a trauma center. I spoke to Vicky [facility]man They are excepted patient. Due to her fall they would like to have a CT of her head and neck which obtaining. All images will be sent to their facility. History & Record Review Discussion w/independent historian: Patient Additional record(s) reviewed:: Prior inpatient record, Prior outpatient record, Prior ED visit and Prior labs Lab Data Attestation: I reviewed the patient's lab results. Lab results narrative: CBC normal. White count 4. H&H 12 and 36. Platelets 292. Electrolytes show gap 16. Normal BUN and creatinine. Glucose 100. CAT scan of the chest shows multiple rib fractures with pulmonary contusion. CAT scan of the head and neck showed chronic changes. CAT scan of the abdomen showed no acute intra-abdominal injury. Labs: Laboratory Results - last 24 hr 05/28/25 14:28 WBC 4.8 RBC 4.23 Hgb 12.0 Hct 36.3 L MCV 85.8 MCH 28.4 MCHC 33.1 RDW Std Deviation 49.6 H RDW Coeff of Kehinde 15.9 H Plt Count 292 MPV 9.6 Immature Gran % (Auto) 0.600 Neut % (Auto) 57.5 Lymph % (Auto) 29.9 Blanco % (Auto) 8.3 Eos % (Auto) 3.5 Baso % (Auto) 0.2 Absolute Neuts (auto) 2.8 Absolute Lymphs (auto) 1.44 Nucleated RBC % 0 Sodium 136 Potassium 3.5 Chloride 96 L Carbon Dioxide 25.0 Anion Gap 16 H BUN 14 Creatinine 0.67 L Estim Creat Clear Calc 85.50 Est GFR (MDRD) Non-Af 98 BUN/Creatinine Ratio 20.9 H Glucose 100 H Calcium 9.3 Radiography Diagnostic Testing: Clinical Impression(s) from Imaging Studies Elbow X-Ray 05/28/25 14:06 IMPRESSION: No acute fracture or dislocation. Reading Location: [facility] Humerus X-Ray 05/28/25 14:06 IMPRESSION: No acute fracture or dislocation. Reading Location: [facility] Shoulder X-Ray 05/28/25 14:06 IMPRESSION: No acute fracture or dislocation. Reading Location: [facility] Chest/Abdomen/Pelvis CT 05/28/25 15:00 IMPRESSION: 1. Acute displaced fractures of the posterior right 7th-10th ribs, with several additional nondisplaced buckle fracture deformities of bilateral ribs, primarily on the right side. 2. No pneumothorax or pleural effusion. Mild bilateral dependent atelectasis, possibly with a component of mild pulmonary contusions given the adjacent rib fracture. 3. Age-indeterminate, possibly acute compression fractures involving the superior endplates of T12 and L1, with minimal height loss and no retropulsion. New since 05/22/2024. 4. No acute intra-abdominal traumatic visceral injuries. Reading Location: [facility] Brain CT 05/28/25 19:28 IMPRESSION: 1. No acute intracranial abnormality. Chronic paranasal sinus disease. 2. No acute cervical spine fracture or traumatic malalignment. 3. Multilevel spondylotic changes as described above. Reading Location: [facility] Cervical Spine CT 05/28/25 19:28 IMPRESSION: 1. No acute intracranial abnormality. Chronic paranasal sinus disease. 2. No acute cervical spine fracture or traumatic malalignment. 3. Multilevel spondylotic changes as described above. Reading Location: [facility] Right shoulder x-ray, 4 films, interpreted by myself shows no acute fracture or dislocation. Right humerus 2 views interpreted by myself shows no acute fracture. Right elbow 3 views shows no acute fracture or dislocation. Discharge Plan Dx/Rx/DC Orders Clinical Impression: Fall from ladder, Multiple fractures of ribs, Right pulmonary contusion, Compression fracture Disposition Disposition: Acute Care Hospital [facility]
[2025-05-28 14:44] LABS: Hematocrit 36.3 % (37-47); Hemoglobin 12.0 g/dL (12.0-15.0); Immature Granulocytes Count 0.030 X10^3/uL (0.0-0.0); Mean Corp Hgb Conc 33.1 g/dL (32-36); Mean Corpuscular Volume 85.8 fL (81-99); Mean Platelet Vol. 9.6 fl (6.2-12.0); NRBC Flagged by Analyzer 0 % (0-5); Platelet Count 292 K/mm3 (150-450); RBC Distribution Width CV 15.9 % (11.6-14.6); RBC Distribution Width SD 49.6 fl (35.1-43.9); Red Blood Count 4.23 M/mm3 (4.2-5.4); White Blood Count 4.8 K/mm3 (4.4-11.0)
--- NOTE | 2025-05-28 15:00 | CT_ITS ---
PROCEDURE: CT CHEST, ABD, PEL W/CONTRAST 05/28/2025 REASON FOR EXAM: TRAUMA RIGHT POSTERIOR RIBS TECHNIQUE: CT CHEST, ABD, PEL W/CONTRAST coronal and Sagittal reconstruction series were provided. One or more dose reduction techniques were used (e.g., Automated exposure control, adjustment of the mA and/or kV according to patient size, use of iterative reconstruction technique. CONTRAST: Isovue-300 VOLUME: 85 mL RADIATION DOSE SUMMARY: DLP: 1639.49 mGycm COMPARISON: CT chest abdomen and pelvis dated 05/22/2024. FINDINGS: Lungs/pleura: Clear. No pneumothorax or pleural effusion. Mild bibasilar dependent atelectasis, although a component of mild pulmonary contusions in the posterior right lung base may be present. Mediastinum: No mediastinal hematoma. No lymphadenopathy. Heart: Normal in size. No pericardial effusion. Mild coronary artery calcifications. Aorta: Tortuous but normal in caliber. Mild atherosclerotic disease. Liver: Within normal limits, no acute injury. Gallbladder: Surgically absent. No biliary ductal dilatation. Spleen: Normal in size, no acute injury. Pancreas: Unremarkable. Adrenals: Unremarkable. Kidneys: Normal size with symmetric enhancement. No acute injury. No hydronephrosis. Bladder: Underdistended, grossly unremarkable. Reproductive Organs: Prior hysterectomy. Unremarkable adnexal regions. Bowel: No significant abnormality. No evidence of obstruction or active inflammatory process. Appendix not definitively identified but there are no pericecal inflammatory changes. Mild distal colonic diverticulosis without evidence for active diverticulitis/colitis. Peritoneum / Retroperitoneum: No ascites or free air. Bones: Acute mildly displaced fractures of the posterior right 7th through 10th ribs, with multiple additional nondisplaced/buckle rib fracture deformities primarily on the right. Age- indeterminate compression fractures involving the superior endplates of T12 and L1 vertebrae, with minimal less than 50% height loss, new since 05/22/2024 and may be acute. No significant osseous retropulsion. Stable appearing postoperative changes at L4- L5 with posterior instrumented and interbody fusion, with dorsally migrated interbody spacer component and mild grade 1 anterolisthesis of L4 on L5. Moderate left hip arthrosis. CT/CT Chest, Abd, Pel w/Contrast IMPRESSION: 1. Acute displaced fractures of the posterior right 7th-10th ribs, with several additional nondisplaced buckle fracture deformities of bilateral ribs, primarily on the right side. 2. No pneumothorax or pleural effusion. Mild bilateral dependent atelectasis, possibly with a component of mild pulmonary contusions given the adjacent rib fracture. 3. Age-indeterminate, possibly acute compression fractures involving the superi or endplates of T12 and L1, with minimal height loss and no retropulsion. New since 05/22/2024. 4. No acute intra-abdominal traumatic visceral injuries. Reading Location: [id number]
[2025-05-28 16:32] LABS: Anion Gap 16 (5-15); BUN 14 mg/dL (4-19); BUN/Creat Ratio 20.9 RATIO (10-20); Calcium,Total 9.3 mg/dL (7.6-11.0); Carbon Dioxide 25.0 mmol/L (21.0-32.0); Chloride 96 mmol/L (98-108); Estimated Creatinine Clearance 85.50 ml/min (50-250); Glucose 100 mg/dL (70-99); Potassium 3.5 mmol/L (3.3-5.1)
[2025-05-28] MEDS: HYDROmorphone 0.5 MG/0.5 ML SYRINGE IV ×3 (17:18→22:41)
--- NOTE | 2025-05-28 19:28 | CT_ITS ---
EXAM: BRAIN/HEAD WITHOUT CONTRAST; SPINE CERVICAL WITHOUT CONTRAS CLINICAL HISTORY: FALL COMPARISON: None. TECHNIQUE: Noncontrast images of the head and cervical spine with multiplanar reconstructions. Dose reduction techniques were used including intermediate exposure control (AEC),iterative reconstruction technique, and/or mA and/or KV dose adjustments based on patient's size. FINDINGS: HEAD: No acute intracranial hemorrhage, extra-axial collection, mass effect or evidence of acute infarct. Ventricles and subarachnoid spaces are normal in size. Orbital contents are unremarkable. Intact skull base and calvarium. No mastoid effusions. Chronic paranasal sinus disease with peripheral mucosal thickening in the right maxillary and left sphenoid sinuses, bilateral ethmoids, and complete opacification of left frontal sinus and left frontoethmoidal recess. No fluid levels. CERVICAL SPINE: No acute fracture or subluxation. Trace degenerative grade 1 anterolisthesis of C2 on C3, and retrolisthesis of C5 on C6. Straightening of the cervical lordosis may be positional and/or degenerative in nature. Mild spondylotic changes most pronounced at C5-6, with varying degrees of disc space narrowing, endplate sclerosis and anterior osteophytosis, uncovertebral spurring and hypertrophic facet arthropathy. Moderate-advanced osseous neural foraminal narrowing bilaterally at C4-5 and C5-6. No prevertebral soft tissue swelling. Mild atherosclerotic vascular calcifications. CT/Spine Cervical without Contras IMPRESSION: 1. No acute intracranial abnormality. Chronic paranasal sinus disease. 2. No acute cervical spine fracture or traumatic malalignment. 3. Multilevel spondylotic changes as described above. Reading Location: [id number]
--- OUTSIDE RECORDS SUMMARY | 2025-05-28 21:03 | XMS RPT_ITS | CCD ---
Author Organization [facility] Care Team Providers Care Manager Floor Name Role Phone Hermann Hillman Admitting Unavailable Hermann Hillman Attending Unavailable Julisa Cheung Primary Care UnavailJulisa Matos Primary Care Provider Julisa Cheung Primary Care Provider [phone] Julisa Cheung Primary Care Provider Julisa Cheung MD Primary Care Provider Julisa Cheung MD Primary Care Provider Dr. Julisa Cheung MD Primary Care Provider Dr. Uche Kuhn MD Attending Provider Dr. Uche Kuhn MD Emergency Provider Dr. Julisa Cheung MD Attending Provider [phone] Dr. Julisa Cheung MD Referring Provider [phone] MITRA SAAVEDRA Attending Unavailable JULISA CHEUNG Primary Care UnavailMITRA Jeff Attending Unavailable MITRA SAAVEDRA Referring Unavailable JULISA CHEUNG Primary Care UnavailSteven Bourgeois Attending Unavailable Steven PEOPLES Referring Unavailable JULISA CHEUNG Primary Care UnavailMITRA Jeff Referring Unavailable JULISA CHEUNG Primary Care UnavailMITRA Jeff Attending Unavailable JULISA CHEUNG Primary Care Unavailabl APRIL Oneil Attending Unavailable JULISA CHEUNG Primary Care UnavailMITRA Jeff Referring Unavailable JULISA CHEUNG Primary Care UnavailMITRA Jeff Admitting Unavailable KERI, MITRA Attending Unavailable KERI, MITRA Referring Unavailable JULISA CHEUNG B Primary Care Unavailabl e KERI, MITRA Referring Unavailable JULISA CHEUNG Primary Care Unavailabl e KERI, MITRA Attending Unavailable SYED CHEUNGER B Primary Care Unavailabl e KERI, MITRA Admitting Unavailable KERI, MITRA Attending Unavailable KERI, MITRA Referring Unavailable JULISA CHEUNG B Primary Care Unavailluciana Cheung MD, Dr. Mcknight Primary Care Provider Dr. Barney Dockery DO Emergency Provider Julisa Cheung Primary Care Unavailable Barney Dockery Attending Unavailable Julisa Cheung Primary Care Unavailable Uche Kuhn Attending [facility]available [facility] Unavailable Hermann España Referring Unavailable Hermann España Attending Unavailable Julisa Cheung Attending Unavailable Julisa Cheung Primary Care Unavailable Julisa Cheung Referring Unavailable Allergies Allergy Classification Reported Allergen(s) Allergy Type Date of Onset Reaction(s) Facility Latex (5 sources) natural latex rubber Substance Allergy 9 [facility] Opioid Agonists (5 sources) Morphine Drug Allergy 0 Itching [facility] Tetracyclines (antibiotic) (5 sources) Tetracycline Drug Allergy 6 Vomiting [facility] (20 sources) Morphine; Translations: [MORPHINE] Drug Allergy 0 Itching [facility] (20 sources) natural latex rubber; Translations: [LATEX, NATURAL RUBBER] Drug Intolerance 9 [facility] (20 sources) Tetracycline; Translations: [TETRACYCLINE] Drug Allergy 6 Vomiting [facility] (20 sources) Kiwi; Translations: [KIWI] Drug Allergy 9 Anaphylaxis [facility] (20 sources) PARoxetine; Translations: [PAROXETINE] Drug Allergy 7 Unknown [facility] (7 sources) Tetracyclines; Translations: [Tetracyclines] Allergy to substance 1 Unknown [facility] (2 sources) Latex Allergy to substance 5 Rash [facility] (1 source) Latex Drug allergy (disorder) 5 [facility] (1 source) Morphine Drug Allergy 5 [facility] (1 source) PARoxetine Drug Allergy [facility] Medications Current Medications Medication Drug Class(es) Dates Sig (Normalized) Sig (Original) acetaminophen 325 mg / HYDROcodone bitartrate 5 mg oral tablet (5 sources) Opioid Agonist Start: 05-01-2025 take 1 tablet by mouth every six hours as needed for pain Hydrocodone-Aceta minophen 5-325 mg tablet Active 1 {tbl} PO EVERY 6 HOURS NEEDED as needed for Pain 10 May 01, 2025 Start: 12-03-2022 End: 04-27-2024 Hydrocodone-Acetaminophen 5- 325 mg tablet Discontinued 1 {tbl} PO EVERY 6 HOURS NEEDED as needed for Pain 10 December 03, 2022 April 27, 2024 3:57pm Start: 12-03-2022 take 1 tablet by gamaliel th every six hours as needed Hydrocodone-Acetaminophen Active 1 TABLE T PO EVERY 6 HOURS NEEDED 10 December 03, 2022 amLODIPine 10 mg oral tablet (20 sources) Dihydropyridine Calcium Channel Sarah Start: 06-16-2020 take 1 tablet by mouth once daily amLODIPine (NORVASC) 10 mg tablet Take 1 tablet by mouth once daily. 02/05/2025 Active amlodipine besyl ate (AMLODIPINE ORAL) Take by mouth. 0 Active Comment on above: Take by mouth. Take 10 mg by mouth once daily. bisacodyl 5 mg delayed release oral tablet (20 sources) Stimulant Laxative Start: 04-29-2021 Bisacodyl (DULCOLAX) 5 mg tab Indications: Blood in stool [...] Start: 04-16-2021 take 1 capsule by mo ut once daily Cholecalciferol, Vitamin D3, 50 mcg (2,000 unit) cap Take 1 capsule by mouth once daily. 04/16/2021 Active Comment on above: Take 1 capsule by mo ut once daily. DULoxetine 30 mg delayed release oral capsule (20 sources) Serotonin and Norepinephrine Reuptake Inhibitor Start: 04-27-20 24 take 1 capsule by mouth once DULoxetine (CYMBALTA) 30 mg capsule Take 1 capsule by mouth every afternoon. 05/28/2024 Active fexofenadine hydrochloride 180 mg oral tablet (20 sources) Histamine-1 Receptor Antagonist Start: 02-09-20 25 take 1 tablet by mouth once daily [...] Thiazide Diuretic, Angiotensin 2 Receptor Sarah Start: take 1 tablet by mouth once daily losartan-hydro CHLOROthiazide (HYZAAR) 100-12.5 mg per tablet Take 1 tablet by mouth once daily. 03/02/2025 Active Start: 06-16-2020 End: 07-24-2021 Losartan-Hydrochlorothiazide 1 EACH [...] 1 tablet by gamaliel th once daily. 24 hr metoprolol succinate 100 mg extended release oral tablet (20 sources) beta-Adrenergic Sarah Start: 04-07-2021 take 1 tablet by mouth twice daily [...] 10 mL injection (DEFINITY) polyethylene glycol 3350 24401 mg powder for oral solution (20 sources) [...] for Miralax / Gatorade Bowel Prep Kit sucralfate 1000 mg oral tablet (16 sources) Aluminum Complex Start: 05-24-2024 take 1 tablet by mouth twice daily sucralfate (CARAFATE) 1 gram tablet TAKE 1 TABLET BY MOUTH TWICE DAILY. FOLLOW SLURRY INSTRUCTIONS. 05/24/2024 Active Start: 05-22-2024 End: 05-01-2025 take 1 mL by mouth twice daily Sucralfate (Carafate) 1 00 mg/mL suspension Discontinued 10 mL PO TWICE A DAY 300 May 22, 2024 12:00am May 01, 2025 1:15am traMADol hydrochloride 50 mg oral tablet (1 [...] (Normalized) Sig (Original) acetaminophen 325 mg / oxyCODONE hydrochloride 5 mg oral tablet (6 sources) Opioid Agonist Start: 06-19-2021 End: 07-24-2021 Oxycodone-Acetamin ophen (Percocet) 5-325 mg Tablet Discontinued 1 {tbl} PO EVERY 6 HOURS as needed for spasms June 19, 2021 12:00am July 24, 2021 1:52pm amoxicillin 500 mg oral capsule (4 sources) Penicillin-class Antibacterial Start: 07-21-2022 End: 07-31-2022 [...] 20, 2022 11:00pm July 30, 2022 11:06pm amoxicillin 875 mg / clavulanate 125 mg oral tablet (8 sources) Penicillin-class Antibacterial Start: 04-27-2024 End: 05-01-2025 Amoxicillin-Pot Clavulanate 875-125 mg tablet Discontinued 1 {tbl} PO Q12H April 27, 2024 12:00am May 01, 2025 1:15am Start: 07-24-2021 End: 2021 Amoxicillin-Pot Clavulanate (Augmentin) 875-125 mg tablet Discontinued 1 {tbl} PO Q12H 20 July 24, 2021 12:00am August 02, 2021 12:00am 2021 12:01am apixaban 5 mg oral tablet (15 sources) Factor Xa Inhibitor apixaban (ELIQUIS) 5 mg tab(s) Take by mouth twice daily. 0 Active Comment on above: Take by mouth twice daily. citalopram 40 mg oral tablet (20 sources) Serotonin Reuptake Inhibitor Start: 07-25-20 End: 04-27-20 take 1 tablet by mouth once daily Citalopram 40 mg tablet Discontinued 40 mg PO DAILY June 16, 2020 12:00am April 27, 2024 3:57pm Comment on above: Take one(1) tablet d aily. cyclobenzaprine hydrochloride 5 mg oral tablet (20 sources) Muscle Relaxant Start: 06-19-20 End: 07-24-20 take 1 tablet by mouth three times daily as needed for pain Cyclobenzaprine (Flexeril) 5 mg Tablet Discontinued 5 mg PO THREE TIMES A DAY as needed for Pain June 19, 2021 12:00am July 24, 2021 1:52pm Start: 05-15-2021 take 1 tablet by gamaliel three times daily as needed for muscle [...] doxazosin 4 mg extended release oral tablet (6 sources) alpha-Adrenergic Sarah Start: 06-16-20 End: 07-24-20 [...] Active Comment on above: Take by mouth. meloxicam 15 mg oral tablet (2 sources) Nonsteroidal Anti-inflammatory Drug Start: 04-27-20 End: 05-01-20 take 1 tablet by mouth once daily Meloxicam 15 mg tablet Discontinued 15 mg PO daily April 27, 2024 12:00am May 01, 2025 1:15am nabumetone 750 mg oral tablet (20 sources) Nonsteroidal Anti-inflammatory Drug Start: 06-16-20 End: 07-24-20 take 1 tablet by mouth twice daily Nabumetone 750 MG tablet Discontinued 750 mg PO TWICE A DAY June 16, 2020 12:00am July 24, 2021 1:52pm Comment on above: Take 750 mg by mouth twice daily. pregabalin 150 mg oral capsule (20 sources) Start: 04-18-20 End: 07-24-20 take 1 capsule by mouth twice daily Pregabalin 150 MG capsule Discontinued 150 mg PO TWICE A DAY June 16, 2020 12:00am July 24, 2021 1:52pm Comment on above: Take 1 capsule by [facility] twice daily for 30 days. Do not start before April 18, 2020. take 1 capsule by [facility] twice a day Take 1 capsule by [facility] twice daily for 30 days. promethazine hydrochloride 25 mg oral tablet (6 sources) Phenothiazine Start: 06-19-20 End: 07-24-20 take 1 tablet by mouth every six hours as needed for nausea Promethazine 25 MG tablet Discontinued 25 mg PO EVERY 6 HOURS NEEDED as needed for Nausea June 19, 2021 12:00am July 24, 2021 1:53pm Problems Active Problems Problem Classification Problem Date Documented Da te Episodic/Chronic E Codes: Fall (5 sources) Fall in home; Translations: [Unspecified fall, initial encounter] 12-03-2022 Episodic Esophageal disorders (20 sources) Gastroesophageal reflux disease; Translations: [Gastro-esophageal reflux disease without esophagitis] Onset: 6 04-29-2006 Chronic Essential hypertension (20 sources) Hypertensive disorder; Translations: [Essential (primary) hypertension] Onset: 4 04-17-2021 Chronic Fracture of upper limb (6 sources) Closed fracture of fifth metacarpal; Translations: [Unspecified fracture of fifth metacarpal bone, left hand, initial encounter for closed fracture] Onset: 5 12-03-2022 Episodic Gastrointestinal hemorrhage (2 sources) Hematochezia; Translations: [Melena] Episodic Headache; including migraine (6 sources) Headache; Translations: [Severe headache] 07-24-2021 Episodic Malaise and fatigue (6 sources) Fatigue; Translations: [Other fatigue] 07-24-2021 Episodic Nausea and vomiting (1 source) Nausea; Translations: [Nausea] Episodic Nutritional deficiencies (20 sources) Vitamin D deficiency; Translations: [Vitamin D deficiency, unspecified] Onset: 1 08-12-2021 Chronic Open wounds of extremities (2 sources) Laceration of foot; Translations: [Laceration without foreign body, unspecified foot, initial encounter] 05-27-2024 Episodic Other acquired deformities (2 sources) Lumbar spondylolisthesis; [...] mass index (BMI) 31.0-31.9, adult] Onset: 1 10-06-2021 Chronic Other nutritional; endocrine; and metabolic disorders [...] 30-34.9] Onset: 0 07-04-2020 Other skin disorders (2 sources) Eruption; Translations: [Rash and other nonspecific skin eruption] 01-02-2025 Episodic Other upper respiratory infections (10 sources) Acute sinusitis; Translations: [Acute sinusitis, unspecified] 07-21-2022 Episodic Phlebitis; thrombophlebitis and thromboembolism (6 sources) Deep venous thrombosis; Translations: [Acute embolism and thrombosis of unspecified deep veins of unspecified lower extremity] 06-17-2020 Episodic Residual codes; unclassified (13 sources) Obstructive sleep apnea syndrome; Translations: [Obstructive sleep apnea (adult) (pediatric)] Onset: 4 09-28-2024 Chronic Residual codes; unclassified (1 source) Obstructive sleep apnea (adult) (pediatric); Translations: [AARON (obstructive sleep apnea)] Onset: 4 Chronic Residual codes; unclassified (6 sources) H/O Spinal surgery; Translations: [Other specified postprocedural states] 07-24-2021 Episodic Residual codes; unclassified (1 source) History of hernia repair; Translations: [Other specified postprocedural states] 04-16-2025 Episodic Spondylosis; intervertebral disc disorders; other back problems (1 source) Lumbar spondylosis; Translations: [Lumbar spondylosis] Chronic Superficial injury; contusion (7 sources) Contusion of chest; Translations: [Contusion of unspecified front wall of thorax, initial encounter] Onset: 5 11-25-2020 Episodic Unclassified (1 source) Post Op [...] in adult, unspecified obesity type] Onset: 5 Viral infection (6 sources) Viral disease; Translations: [Viral infection, unspecified] 06-19-2021 Episodic Past or Other Problems Problem Classification Problem Date Documented Date Episodic/Chronic Abdominal hernia (20 sources) Paraesophageal hernia; Translations: [Diaphragmatic hernia without obstruction or gangrene] Onset: 08-12-2021 Episodic Administrative/socia l admission (20 sources) Patient encounter status; Translations: [Dietary counseling and surveillance] Onset: 04-24-2021 08-12-2021 Episodic Biliary tract disease (20 sources) Disorder of gallbladder; Translations: [Other specified diseases of gallbladder] Onset: 07-25-2008 07-25-2008 Episodic Other acquired deformities (20 sources) Lumbar [...] of mental health and substance abuse codes (13 sources) Ex-smoker; Translations: [Personal history of nicotine dependence] Onset: 09-28-2024 09-28-2024 Episodic Spondylosis; intervertebral disc disorders; other back problems (20 sources) Lumbar radiculopathy; Translations: [Spinal stenosis of lumbar region] Onset: 08-12-2021 08-12-2021 Episodic Substance-related disorders (13 sources) Marijuana user; Translations: [Cannabis use, unspecified, uncomplicated] Onset: 09-28-2024 09-28-2024 Episodic Results Test Name Value Interpretation Reference Range Facility OT General Evaluationon 05-07 OT General Evaluation [facility] Occupational [facility] [address] [place] [address] / REHABILITATION SERVICES INITIAL EVALUATION MR#: [id number] Acct: [id number] Name: FRANCIA GAMA Rep #: [id number] : 1960 64 From: Leanna BORJA CHT Referring Dr.: Dr. Hermann España MD Status: REG R Insurance: ANTHEM Eval Date: SELF PAY INSURANCE Patient's Visit Information Visit Information Visit Information: FRANCIA GAMA is a 64 year old F, referred to Occupational Therapy by Dr. Hermann España MD, with a diagnosis of left IF metacarpal neck fx. Date of Evaluation: 05/17/25 Occupational Therapist: NESTOR Reeves/CINTHYA Stern Subjective Subjective: This 64 year old female was seen for OT eval with dx of left Metacarpal bone displaced fx of 2nd neck. pt DOI was May 03, 2025 when she slipped on went grass and fell into a car. Pt went to ER and then was referred to CC as Dr. España has treated her in the past. Pt states she is happy with her recovery at this time. Pt arrives with orthosis on and vernon tape of IF to . Pt states some tingling/numb at base of IF. Pt is right handed pt works at [employer] 40-45 hours a week. pt states more pain in AM but doing really well. pt is hopeful she will return to her PLOF when bone is healed. Pain left hand: Current Pain Intensity: 2 Pain Intensity Range: 5 ROM MP: right IF 0/90 left 0/75 PIP: right IF 0/ 90 left 0/90 Strength Clothespin Machine Operator: right 65# left NT Lateral Pinch: right 10# left NT Tripod Pinch: right 12# left NT Strength Comments: will test left at later date Edema Other: MCP circ. right 19cm left 19cm Sensation Sensation Comments: reports slight sensation ting/numb at base of IF Quick DASH-Disab of Arm,Shoulder Hand Quick DASH Score: 66.6650 Goals Goal:ROM equal to unaffected hand: Yes Goal:Clothespin Machine Operator/Pinch strength at least 75% of unaffected hand: Yes Comment: will not initiate until week 6 Goal:No pain with affected hand use: Yes Goal:Full use of affected hand in daily activities including work: Yes Rehabilitation General Assessment: pt arrives 2 weeks from DOI. Pt demo with newly healing structures limiting pts functional ROM and use of left hand with daily tasks. Pt would benefit from skilled OT services 1-2x week for 8-10 weeks to return pt to her PLOF. Today therapist adj. orthosis to increase comfort. Pt demo IND with donning and doffing vernon straps. therapist ed. pt on AROM ex, edema control and orthosis use. pt demo understanding and agree to POC. Rehabilitation Potential: Good Anticipated Interventions Anticipated Interventions: A/AAROM/PROM, Strengthening, Triggerpoint Release, Modalities, Orthoses, Joint Protection/Energy Conservation, Ergonomic Education, Fine Motor Coord/Alban, Education re assistive Equipment, Education re Diagnosis and Home Program Visit Plan Frequency: 1-2x /Week Duration: 2 Months General Plan: will work on AROM pt returns to in 6 weeks for x-ray will wait for clearance for strengthening at that time. TEXT: Thank you for the opportunity to evaluate your patient. For Medicare and Medicare HMO plans, please review the plan of care and approve it. It will need to be FAXED BACK to us at [phone] for Medicare purposes. Please let me know if there are questions or concerns regarding this plan of care. Physician Signature: Date : 05/17/25 0916 CC: Dr. Julisa Cheung MD; Dr. Hermann España MD ARI Signed For Medicare only, by signing this I certify the plan of care. Physicians Signature Date Normal [facility] Emergency Department Summary on 05-01-2025 Emergency Department Summary [facility] Medical Records Department [address] [place] [address] Emergency Department Summary 05/01/25 MR#: [id number] Acct: [id number] Name: FRANCIA GAMA Rep #: [id number] : 1960 64 From: Barney Dockery DO PCP: Dr. Julisa Cheung MD Status:DEP ER Location: ED HPI History of Present Illness HPI Narrative: Patient presents with injury to her left hand that occurred today. Patient states she was walking when she slipped and fell. Patient states she hit her left hand on a car when she fell. Patient denies any head injury or loss of consciousness. Patient describes the pain as aching, burning, and stabbing. Patient states that ice made her pain worse. Patient denies any paresthesias or weakness. Patient denies any head injury or loss of consciousness. Patient denies any other injuries. Chief Complaint: Upper Extremity Injury Informant: patient Occured/Mechanism Mechanism/Context: Yes fall Onset/Context/Timing Onset: Today Context: Sudden Onset Timing: Continuous Quality of Pain: Aching, Burning and Stabbing Location: Left hand Worsened by: Ice, movement Relieved by: Nothing Associated Symptoms Associated Symptoms: Negative for Parasthesia, Weakness or Loss of Funtion [facility] Medical History (Updated 05/01/25 @ 04:[address] Barney Dockery DO) Acute frontal sinusitis, unspecified Severe headache Fatigue Hypertension Home Medications ???Medication ???Instructions ???Recorded ???Last Taken ???Type amlodipine 10 mg tablet 10 mg PO DAILY 06/16/20 Unknown Hi story bupropion HCl 300 mg 24 hr tablet, 300 mg PO DAILY 06/16/20 Unknown History extended release omeprazole 20 mg capsule,delayed 20 mg PO DAILY 07/24/21 Unknown Hi story release cholecalciferol (vitamin D3) 50 50 mcg PO QDAY 04/27/24 Unknown Hi story mcg (2,000 unit) capsule duloxetine 30 mg capsule,delayed 30 mg PO QDAY 04/27/24 Unknown His tory release fluticasone propionate 50 2 spray intranasal QDAY 04/27/24 U nknown History mcg/actuation nasal spray,suspension losartan 100 1 tab PO QDAY 04/27/24 Unknown His tory mg-hydrochlorothiazid e 12.5 mg tablet hydrocodone-acetamino phen 5-325mg 1 tab PO Q6H PRN PRN Pain 3 days 05/01/25 Unknown Rx 5mg-325mg #10 TABLETS Allergy/AdvReac Type Severity Reaction Status Date / Time latex Allergy Mild Rash Verified 05/01/25 01:11 morphine Allergy Itching Verified 05/01/25 01:11 paroxetine (From Paxil) Allergy Unknown Verified 05/01/25 01:11 Tetracyclines Allergy Unknown Verified 05/01/25 01:11 Family History Other Diabetes Hypertension Surgical History (Updated 05/01/25 @ 01:[address] Barney Dockery DO) History of Rosenda fundoplication Hx of cardiac catheterization H/O wrist surgery History of back surgery H/O section History of repair of hiatal hernia Hx of tonsillectomy Hx of cholecystectomy History of hysterectomy Social History (Updated 05/01/25 @ 01:[address] Barney Dockery DO) Smoking Status: Former smoker alcohol intake: current alcohol intake frequency: a few times a month substance use type: marijuana ROS ROS ED Constitutional Constitutional ED: Denies chills or fever(s) Eyes Eyes: Denies blurry vision or change in vision ENT ENT ED: Denies rhinorrhea or sore throat Cardiovascular Cardiovascular: Denies chest pain or palpitations Respiratory/Chest Respiratory/Chest: Reports cough and sputum; Denies dyspnea Gastrointestinal Gastrointestinal: Denies nausea or vomiting Genitourinary Genitourinary ED: Denies dysuria or hematuria Musculoskeletal Musculoskeletal: Reports back pain; Denies neck pain Integumentary Denies abscess or rash Neurologic Neurologic: Denies headache(s) or weakness Allergic/Immunologic Allergic/Immunologic ED: Denies mouth swelling or urticaria EXAM Physical Exam Const Vital Signs: 05/01/25 01:11 Temperature 98.7 F Temperature Source Oral Pulse Rate 95 Respiratory Rate 18 Blood Pressure 151/98 H Blood Pressure Mean 115 Pulse Ox 98 Oxygen Delivery Method Room Air Positive well nourished and well developed General Appearance ED: well developed and NAD HEENT Reports moist mucous membranes Neck full ROM and supple Extremity Extremity Narrative: There is tenderness, edema, and ecchymosis over the distal 2nd and 3rd metacarpals and MCP joints. There is no obvious deformity noted. Range of motion was limited in all motions of the 2nd and 3rd MP joints secondary to pain. Sensation was intact to light touch in the radial, median, and ulnar areas. Strength is 5/5 in the radial, median, and ulnar areas. Radial pulses are equal bilaterally. Neuro oriented x3, CN's II-XII intact bilat (more content not included)... Normal [facility] Hand Min 3 Viewson Hand Min 3 Views [facility] Imaging Services [address] [place] [address] Hand Min 3 Views MR#: [id number] Acct: [id number] Name: FRANCIA GAMA Srinivas Rep #: [id number] : 1960 F 64 From: Ganesh parsons MD PCP: Dr. Julisa Cheung MD Status: REG ER Study: Hand Min 3 Views Date of Exam: 05/01/25 Exam# [id number] Ordering Dr: Barney Dockery DO PROCEDURE: HAND MIN 3 VIEWS 05/01/2025 REASON FOR EXAM: INJURY/PAIN TECHNIQUE: HAND MIN 3 VIEWS COMPARISON: 12/03/2022. FINDINGS: Acute displaced angulated fracture of the neck of the 2nd metacarpal bone. Narrowed radiocarpal articulation. Narrowing of the radioulnar joint. Postsurgical changes status post multiple carpal bone fusion. Normal carpal articulations Degenerative changes of the carpometacarpal articulation of the thumb. Normal second through fifth carpometacarpal joints. 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 Normal interphalangeal joint of the thumb. Normal proximal and distal phalanges of the thumb. Normal metacarpophalangeal joints of the second through fifth fingers. Normal proximal and distal interphalangeal joints of the second through fifth fingers. Normal phalanges of the second through fifth fingers. RAD/Hand Min 3 Views IMPRESSION: Acute displaced angulated fracture of the neck of the 2nd metacarpal bone. [facility] CC: Dr. Julisa Cheung MD; Dr. Barney Dockery DO Drier Belt Conveyor: Signed [id number] FRANCIA GAMA ([id number]) 1960 F Date Time Provider Department 04/29/25 MITRA SAAVEDRA [id number] During your visit today, we recorded the following information about you: Weight 75.8 kg Steven Jurado RN 04/29/2025 1:19 PM Signed This is my 3rd call/message to patient to discuss diet advancement s/p re-do Rosenda procedure. I also sent patient a [employer] message asking for a return call. Steven Jennings RN, GARO 04/29/2025 3:39 PM Signed Patient returned my [...] phone isn't ringing and going straight to [employer]. Steevn Jurado RN Allergies As of Date: 04/29/2025 Noted Allergy Reaction KIWI 08/06/2019 10 - Anaphylaxis LATEX, NATURAL RUBBER 08/06/2019 4 - Hives TETRACYCLINE 04/29/2006 11 - Vomiting PAROXETINE 05/17/2017 16 - Unknown MORPHINE 11/15/2019 9 - Itching Date Reviewed: 04/16/2025 Reviewed by: April Myers APRN.LEAD MAINTENANCE TECHNICIAN - Fully Assessed Reason for Visit: Follow [...] 1 tablet by mouth once daily. - losartan-hydroCHLOROt hiazide (HYZAAR) 100-12.5 mg per tablet Take 1 [...] pain [M54.50, G89.29]08/12/2021 Gastroesophageal reflux disease with esophagiti*08/12/2021 Vitamin D deficiency [E55.9] 08/12/2021 Paraesophageal hernia [K44.9] (more content not included)... Normal [facility] CNPXiomara 04-18-2025 CNPN Telephone (AGGENS4) FRANCIA GAMA ([id number]) 1960 F Date Time Provider Department 04/18/25 MITRA SAAVEDRA AGGENS4 During your visit today, we recorded the following information about you: Steven Jurado RN 04/18/2025 10:37 AM Signed I called patient [...] Date Reviewed: 04/16/2025 Reviewed by: April Myers APRN.LEAD MAINTENANCE TECHNICIAN - Fully Assessed Reason for Visit: Follow Up [171] Prescriptions as of 04/18/2025 - pantoprazole DR (PROTONIX) 40 mg tablet Take 1 tablet by mouth once daily. - ondansetron (ZOFRAN) 4 mg tablet Take 1 tablet by mouth every 6 hours as needed. - fexofenadine (BETTY) 180 mg tablet Take 1 tablet by mouth once daily. - losartan-hydroCHLOROt hiazide (HYZAAR) 100-12.5 mg per tablet Take 1 [...] pain [M54.50, G89.29]08/12/2021 Gastroesophageal reflux disease with esophagiti*08/12/2021 Vitamin D deficiency [E55.9] 08/12/2021 Paraesophageal hernia [K44.9] 08/12/2021 Preop examination [Z01.818] 09/28/2024 AARON (obstructive sleep apnea) [G47.33] 09/28/2024 Marijuana user [F12.90] 09/28/2024 Former smoker [Z87.891] 09/28/2024 Obesity (BMI 30-39.9) [E66.9] 09/28/2024 Screening for colon cancer [Z12.11] 09/28/2024 Hypertension [I10] 09/28/2024 Encounter Status:Closed by STEVEN JURADO on 04/18/25 [facility] Luis 04-16-2025 CNOV Office Visit (AGGENS4) FRANCIA GAMA ([id number]) 1960 F Date Time Provider Department 04/16/25 11:00 AM APRIL MYERS AGGENS4 During your visit today, we recorded the following information about you: Pulse Blood pressure Weight Height 72/minute 124/70 78.8 kg 1.651 m April Myers APRN.LEAD MAINTENANCE TECHNICIAN 04/16/2025 11:20 AM Signed [facility] [...] Take 1 tablet by mouth once daily. losartan-hydroCHLOROt hiazide (HYZAAR) 100-12.5 mg per tablet Take 1 [...] rash. Neurological: Negative for dizziness and weakness. Psychiatric/Behaviora l: Negative. PHYSICAL EXAM: BP 124/70 (BP Site: [...] with surgeon in 3 months April Myers APRN.April Yanes APRN.LEAD MAINTENANCE TECHNICIAN 04/16/2025 11:20 AM Addendum Allergies As of Date: 04/16/2025 Noted Allergy Reaction KIWI 08/06/2019 10 - Anaphylaxis LATEX, NATURAL RUBBER 08/06/2019 4 - Hives TETRACYCLINE 04/29/2006 11 - Vomiting PAROXETINE 05/17/2017 16 - Unknown MORPHINE 11/15/2019 9 - Itching Date Reviewed: 04/16/2025 Reviewed by: April Myers APRN.CNP - Fully Assessed Reason for Visit: Post Op [174] Primary Visit Diagnosis:S/P repair of paraesophageal hernia [Z98.890, Z87.19] (more content not included)... Normal [facility] Jose Roberto 04-08-2025 BELA Telephone (AGGENS4) FRANCIA GAMA ([id number]) 1960 F Date Time Provider Department 04/08/25 MITRA SAAVEDRA4 During your visit today, we recorded the following information about you: Steven Jurado, GARO 04/08/2025 2:53 PM Signed I called patient [...] 1 tablet by mouth once daily. - losartan-hydroCHLOROt hiazide (HYZAAR) 100-12.5 mg per tablet Take 1 [...] pain [M54.50, G89.29]08/12/2021 Gastroesophageal reflux disease with esophagiti*08/12/2021 Vitamin D deficiency [E55.9] 08/12/2021 Paraesophageal hernia [K44.9] 08/12/2021 Preop examination [Z01.818] 09/28/2024 AARON (obstructive sleep apnea) [G47.33] 09/28/2024 Marijuana user [F12.90] 09/28/2024 Former smoker [Z87.891] 09/28/2024 Obesity (BMI 30-39.9) [E66.9] 09/28/2024 Screening for colon cancer [Z12.11] 09/28/2024 Hypertension [I10] 09/28/2024 Encounter Status:Closed by STEVEN JURADO on 04/08/25 [facility] Basic metabolic 2000 panelon 04-04-2025 Anion gap [Moles/Vol] 11 mmol/L Normal 8-15 [facility] Comment on above: Order Comment: Speci men Type: BLOOD SPECIMENOrdering Facility: [facility] Address: [address] [place] [address] Performed By: #### 2 4321-2 ####[facility]ATORYCLIA [id number] [place] [address] [place] Calcium [Mass/Vol] 9.0 mg/dL Normal 8.5-10.2 [facility] Comment on above: Order Comment: Speci men Type: BLOOD SPECIMENOrdering Facility: [facility] Address: [address] [place] [address] Performed By: #### 2 4321-2 ####[facility]ORATORYCLIA [id number] [place] [address] [place] Chloride [Moles/Vol] 100 mmol/L Normal 98-107 [facility] Comment on above: Order Comment: Speci men Type: BLOOD SPECIMENOrdering Facility: [facility] Address: [address] [place] [address] Performed By: #### 2 4321-2 ####[facility]ATORYCLIA [id number] [place] [address] [place] CO2 [Moles/Vol] 26 mmol/L Normal 22-30 [facility] Comment on above: Order Comment: Speci men Type: BLOOD SPECIMENOrdering Facility: [facility] Address: [address] [place] [address] Performed By: #### 2 4321-2 ####[facility] [facility]ATORYCLIA [id number] [place] [address] [place] Creatinine [Mass/Vol] 0.64 mg/dL Normal 0.58-0.96 [facility] Comment on above: Order Comment: Speci men Type: BLOOD SPECIMENOrdering Facility: [facility] Address: [address] [place] [address] Performed By: #### 2 4321-2 ####[facility] [facility]ORATORYCLIA [id number] [place] [address] [place] Creatinine and Glomerular filtration rate.predicted panel (S/P/Bld) 99 mL/min/1.73m??? Normal >=60 [facility] Comment on above: Order Comment: Sergio romero Type: BLOOD SPECIMENOrdering Facility: [facility] Address: [address] [place] [address] Result Comment: Laurel mated Glomerular Filtration Rate [...] actual GFR. Performed By: #### 2 4321-2 ####[facility] LABORATORYIA [id number] [place] [address] [place] Glucose [Mass/Vol] 88 mg/dL Normal 74-99 [facility] Comment on above: Order Comment: Sergio romero Type: BLOOD SPECIMENOrdering Facility: [facility] Address: [address] [place] [address] Result Comment: The [place] Diabetes Association (ADA) provides guidance for cutoff [...] Standards of Medical Care in Diabetes 2016, [place] [employer] Association. Diabetes Care. 2016.39(Suppl 1). Performed By: #### 2 4321-2 ####[facility] LABORATORYCLIA [id number] [place] [id number] [place] Potassium [Moles/Vol] 3.4 mmol/L Low 3.7-5.1 [facility] Comment on above: Order Comment: Speci men Type: BLOOD SPECIMENOrdering Facility: [facility] Address: [address] [place] [address] Performed By: #### 2 4321-2 ####[facility] LABORATORYCLIA [id number] [place] [id number] [place] Sodium [Moles/Vol] 137 mmol/L Normal 136-144 [facility] Comment on above: Order Comment: Speci men Type: BLOOD SPECIMENOrdering Facility: [facility] Address: [address] [place] [address] Performed By: #### 2 4321-2 ####[facility] LABORATORYCLIA [id number] [place] [id number] [place] Urea nitrogen [Mass/Vol] 9 mg/dL Normal 7-21 [facility] Comment on above: Order Comment: Speci men Type: BLOOD SPECIMENOrdering Facility: [facility] Address: [address] [place] [address] Performed By: #### 2 4321-2 ####[facility] LABORATORYCLIA [id number] [address] [place] CASE MANAGEMon 04-04-2025 CASE MANAGEM HNO ID: [id number] Author: GREGORY PRATT RN Service: Nursing Author Type: Registered Nurse Type: Care Mgt Progress Note Filed: 04/04/2025 14:42 Note Text: CASE MANAGEMENT HOME OXYGEN EVALUATION SERVICE DATE: 04/04/2025 Patient Location: [place] [address] 17-* SERVICE TIME: 1420 Assessment: Patient's SPO2 on room air at rest is 92 %. Patient's SPO2 on room air with exercise is 90 %. Patient's SPO2 on 2 L/min O2 with exercise is 93 %. SIGNATURE: Gregory Pratt RN PATIENT NAME: Francia Gama DATE: April 04, 2025 TIME: 2:41 PM PAGER/CONTACT #: Normal [facility] CBC W Auto Differential pane l (Bld)on 04-04-2025 Basophils (Bld) [#/Vol] 10*3/uL Normal <0.11 A [facility] Comment on above: Order Comment: Speci men Type: BLOOD SPECIMENOrdering Facility: [facility] Address: [facility] [place] [address] Performed By: #### 5 7021-8 ####[facility] [facility]ORATORYCLIA [id number] [address] STATES [facility] Basophils/100 WBC (Bld) 0.3 % Normal A [facility] Comment on above: Order Comment: Speci men Type: BLOOD SPECIMENOrdering Facility: [facility] Address: [address] [place] [address] Performed By: #### 5 7021-8 ####[facility] LABORATORYCLIA [id number] [address] Differential cell count method Nom (Bld) Auto Normal [facility] Comment on above: Order Comment: Speci men Type: BLOOD SPECIMENOrdering Facility: [facility] Address: [address] [place] [address] Performed By: #### 5 7021-8 ####[facility]ORATORYCLIA [id number] [address] Eosinophils (Bld) [#/Vol] 0.15 10*3/uL Normal <0.46 [facility] Comment on above: Order Comment: Speci men Type: BLOOD SPECIMENOrdering Facility: [facility] Address: [address] [place] [address] Performed By: #### 5 7021-8 ####[facility] [facility]ORATORYCLIA [id number] [address] Eosinophils/100 WBC (Bld) 2.0 % Normal [facility] Comment on above: Order Comment: Speci men Type: BLOOD SPECIMENOrdering Facility: [facility] Address: [address] [place] [address] Performed By: #### 5 7021-8 ####[facility] [facility]ORATORYCLIA [id number] [place] [address] [place] Erythrocyte distribution width (RBC) [Ratio] 15.0 % Normal 11.5-15.0 [facility] Comment on above: Order Comment: Speci men Type: BLOOD SPECIMENOrdering Facility: [facility] Address: [address] [place] [address] Performed By: #### 5 7021-8 ####[facility] LABORATORYCLIA [id number] [address] [place] Hematocrit (Bld) [Volume fraction] 37.2 % Normal 36.0-46.0 [facility] Comment on above: Order Comment: Speci men Type: BLOOD SPECIMENOrdering Facility: [facility] Address: [address] [place] [address] Performed By: #### 5 7021-8 ####[facility] LABORATORYCLIA [id number] [address] [place] Hemoglobin (Bld) [Mass/Vol] 12.2 g/dL Normal 11.5-15.5 [facility] Comment on above: Order Comment: Speci men Type: BLOOD SPECIMENOrdering Facility: [facility] Address: [address] [place] [address] Performed By: #### 5 7021-8 ####[facility]ATORYCLIA [id number] [address] [place] Immature granulocytes (Bld) [#/Vol] 10*3/uL Normal <0.10 [facility] Comment on above: Order Comment: Speci men Type: BLOOD SPECIMENOrdering Facility: [facility] Address: [address] [place] [address] Performed By: #### 5 7021-8 ####[facility] LABORATORYCLIA [id number] [address] [place] Immature granulocytes/100 WBC (Bld) 0.3 % Normal [facility] Comment on above: Order Comment: Speci men Type: BLOOD SPECIMENOrdering Facility: [facility] Address: [address] [place] [address] Performed By: #### 5 7021-8 ####[facility] [facility]ATORYCLIA [id number] [address] [place] Lymphocytes (Bld) [#/Vol] 1.64 10*3/uL Normal 1.00-4.0 0 [facility] Comment on above: Order Comment: Speci men Type: BLOOD SPECIMENOrdering Facility: [facility] Address: [address] [place] [address] Performed By: #### 5 7021-8 ####[facility] LABORATORYCLIA [id number] [address] Lymphocytes/100 WBC (Bld) 21.5 % Normal [facility] Comment on above: Order Comment: Speci men Type: BLOOD SPECIMENOrdering Facility: [facility] Address: [address] [place] [address] Performed By: #### 5 7021-8 ####[facility]ORATORYCLIA [id number] [address] MCH (RBC) [Entitic mass] 28.6 pg Normal 26.0-34.0 [facility] Comment on above: Order Comment: Speci men Type: BLOOD SPECIMENOrdering Facility: [facility] Address: [address] [place] [address] Performed By: #### 5 7021-8 ####[facility]ORATORYCLIA [id number] [address] [place] MCHC (RBC) [Mass/Vol] 32.8 g/dL Normal 30.5-36.0 [facility] Comment on above: Order Comment: Speci men Type: BLOOD SPECIMENOrdering Facility: [facility] Address: [address] [place] [address] Performed By: #### 5 7021-8 ####[facility] LABORATORYCLIA [id number] [address] MCV (RBC) [Entitic vol] 87.3 fL Normal 80.0-100.0 [facility] Comment on above: Order Comment: Speci men Type: BLOOD SPECIMENOrdering Facility: [facility] Address: [address] [place] [address] Performed By: #### 5 7021-8 ####[facility] [facility]ORATORYCLIA [id number] [address] [place] Monocytes (Bld) [#/Vol] 0.72 10*3/uL Normal <0.87 [facility] Comment on above: Order Comment: Speci men Type: BLOOD SPECIMENOrdering Facility: [facility] Address: [address] [place] [address] Performed By: #### 5 7021-8 ####[facility] [facility]ORATORYCLIA [id number] [address] [place] Monocytes/100 WBC (Bld) 9.4 % Normal A [facility] Comment on above: Order Comment: Speci men Type: BLOOD SPECIMENOrdering Facility: [facility] Address: [address] [place] [address] Performed By: #### 5 7021-8 ####[facility]ORATORYCLIA [id number] [address] [place] Neutrophils (Bld) [#/Vol] 5.07 10*3/uL Normal 1.45-7.5 0 [facility] Comment on above: Order Comment: Speci men Type: BLOOD SPECIMENOrdering Facility: [facility] Address: [address] [place] [address] Performed By: #### 5 7021-8 ####[facility]ORATORYCLIA [id number] [address] [place] Neutrophils/100 WBC (Bld) 66.5 % Normal [facility] Comment on above: Order Comment: Speci men Type: BLOOD SPECIMENOrdering Facility: [facility] Address: [address] [place] [address] Performed By: #### 5 7021-8 ####[facility] [facility]ORATORYCLIA [id number] [place] [address] [place] Nucleated RBC (Bld) [#/Vol] 10*3/uL Normal <0.01 [facility] Comment on above: Order Comment: Speci men Type: BLOOD SPECIMENOrdering Facility: [facility] Address: [address] [place] [address] Performed By: #### 5 7021-8 ####[facility] LABORATORYCLIA [id number] [place] [address] [place] Nucleated RBC/100 WBC (Bld) [Ratio] 0.0 /100 WBC Normal [facility] Comment on above: Order Comment: Speci men Type: BLOOD SPECIMENOrdering Facility: [facility] Address: [address] [place] [address] Performed By: #### 5 7021-8 ####[facility]ORATORYCLIA [id number] [place] [address] [place] Platelet mean volume (Bld) [Entitic vol] 9.7 fL Normal 9.0-12.7 [facility] Comment on above: Order Comment: Speci men Type: BLOOD SPECIMENOrdering Facility: [facility] Address: [address] [place] [address] Performed By: #### 5 7021-8 ####[facility]ORATORYCLIA [id number] [place] [address] [place] Platelets (Bld) [#/Vol] 231 10*3/uL Normal 150-400 [facility] Comment on above: Order Comment: Speci men Type: BLOOD SPECIMENOrdering Facility: [facility] Address: [address] [place] [address] Performed By: #### 5 7021-8 ####[facility]ORATORYCLIA [id number] [place] [address] [place] RBC (Bld) [#/Vol] 4.26 10*6/uL Normal 3.90-5.20 [facility] Comment on above: Order Comment: Speci men Type: BLOOD SPECIMENOrdering Facility: [facility] Address: [address] [place] [address] Performed By: #### 5 7021-8 ####[facility] LABORATORYCLIA [id number] [place] [address] [place] WBC (Bld) [#/Vol] 7.62 10*3/uL Normal 3.70-11.00 [facility] Comment on above: Order Comment: Sergio romero Type: BLOOD SPECIMENOrdering Facility: [facility] Address: [address] [place] [address] Performed By: #### 5 7021-8 ####[facility] LABORATORYCLIA [id number] [place] [id number] [facility] CNDSon 04-04-2025 CNDS HNO ID: [id number] Author: MITRA SAAVEDRA MD Service: General Surgery [...] RN, Patient. DISCHARGE SUMMARY PATIENT NAME: Francia Gama Code Status: Full Code Highest Readmission Risk [...] When: In 2 weeks Mitra Saavedra MD [phone] [facility] [place] [address] [facility] [address] PCP Requested Referral Additional Provider to Provider Information: Principal Problem: Paraesophageal hernia Resolved Problems: * No resolved hospital problems. * Treatment Team: Attending Provider: Mitra Saavedra MD FINAL DIAGNOSIS: Active Hospital Problems Diagnosis POA Paraesophageal hernia Yes Resolved Hospital Problems No resolved problems to display. FOLLOW-UP APPOINTMENTS ALREADY SCHEDULED WITH A [facility] PROVIDER: Future Appointments Date Time Provider Department Center 04/16/2025 11:00 AM April Myers, TAMIKO.LEAD MAINTENANCE TECHNICIAN AGGENS4 [facility] 08/01/2025 8:00 AM (more content not included)... Normal [facility] NUTRITIONon 04-04-2025 NUTRITION HNO ID: [id number] Author: YADIRA SOLOMON RD Service: Nutrition Therapy [...] protein determined by: 1.2 - 1.5 g/kg, [place] body weight Diet Orders (From admission, onward) [...] 1 Frequency THREE TIMES/DAY WITH MEALS 04/04/25 07 Anthropometrics: Height: 165.1 cm (5' 5) Weight: [...] April 04, 2025 TIME: 7:51 PM Normal [facility] Basic metabolic 2000 panelon 04-03-2025 Anion gap [Moles/Vol] 12 mmol/L Normal 8-15 [facility] Comment on above: Order Comment: Speci men Type: BLOOD SPECIMENOrdering Facility: [facility] Address: [address] [place] [address] Performed By: #### 2 4321-2 ####[facility] LABORATORYCLIA [id number] [place] [address] [place] Calcium [Mass/Vol] 8.6 mg/dL Normal 8.5-10.2 [facility] Comment on above: Order Comment: Sergio men Type: BLOOD SPECIMENOrdering Facility: [facility] Address: [address] [place] [address] Performed By: #### 2 4321-2 ####[facility]ORATORYCLIA [id number] [place] [address] [place] Chloride [Moles/Vol] 101 mmol/L Normal 98-107 [facility] Comment on above: Order Comment: Speci men Type: BLOOD SPECIMENOrdering Facility: [facility] Address: [address] [place] [address] Performed By: #### 2 4321-2 ####[facility]ORATORYCLIA [id number] [address] [place] CO2 [Moles/Vol] 25 mmol/L Normal 22-30 [facility] Comment on above: Order Comment: Speci men Type: BLOOD SPECIMENOrdering Facility: [facility] Address: [address] [place] [address] Performed By: #### 2 4321-2 ####[facility]ORATORYCLIA [id number] [address] Creatinine [Mass/Vol] 0.60 mg/dL Normal 0.58-0.96 [facility] Comment on above: Order Comment: Speci men Type: BLOOD SPECIMENOrdering Facility: [facility] Address: [address] [place] [address] Performed By: #### 2 4321-2 ####[facility]ORATORYCLIA [id number] [address] Creatinine and Glomerular filtration rate.predicted panel (S/P/Bld) 101 mL/min/1.73m??? Normal >=60 [facility] Comment on above: Order Comment: Speci men Type: BLOOD SPECIMENOrdering Facility: [facility] Address: [address] [place] [address] Result Comment: Laurel mated Glomerular Filtration Rate [...] actual GFR. Performed By: #### 2 4321-2 ####[facility]ORATORYCLIA [id number] [place] [address] [place] Glucose [Mass/Vol] 103 mg/dL High 74-99 [facility] Comment on above: Order Comment: Speci men Type: BLOOD SPECIMENOrdering Facility: [facility] Address: [address] [place] [address] Result Comment: The [place] Diabetes Association (ADA) provides guidance for cutoff [...] Standards of Medical Care in Diabetes 2016, [place] [employer]. Diabetes Care. 2016.39(Suppl 1). Performed By: #### 2 4321-2 ####[facility]ORATORYCLIA [id number] [place] [address] [place] Potassium [Moles/Vol] 3.2 mmol/L Low 3.7-5.1 [facility] Comment on above: Order Comment: Speci men Type: BLOOD SPECIMENOrdering Facility: [facility] Address: [address] [place] [address] Performed By: #### 2 4321-2 ####[facility]ORATORYCLIA [id number] [place] [id number] [place] Sodium [Moles/Vol] 138 mmol/L Normal 136-144 [facility] Comment on above: Order Comment: Speci men Type: BLOOD SPECIMENOrdering Facility: [facility] Address: [address] [place] [address] Performed By: #### 2 4321-2 ####[facility]ORATORYCLIA [id number] [place] [address] [place] Urea nitrogen [Mass/Vol] 9 mg/dL Normal 7-21 [facility] Comment on above: Order Comment: Speci men Type: BLOOD SPECIMENOrdering Facility: [facility] Address: [address] [place] [place] [address] Performed By: #### 2 4321-2 ####[facility] LABORATORYCLIA [id number] [place] [address] [place] CBC W Auto Differential pane l (Bld)on 04-03-2025 Basophils (Bld) [#/Vol] 10*3/uL Normal <0.11 A [facility] Comment on above: Order Comment: Speci men Type: BLOOD SPECIMENOrdering Facility: [facility] Address: [address] [place] [address] Performed By: #### 5 7021-8 ####[facility] LABORATORYCLIA [id number] [address] [place] Basophils/100 WBC (Bld) 0.1 % Normal A [facility] Comment on above: Order Comment: Speci men Type: BLOOD SPECIMENOrdering Facility: [facility] Address: [address] [place] [address] Performed By: #### 5 7021-8 ####[facility] LABORATORYCLIA [id number] [address] STATES [facility] Differential cell count method Nom (Bld) Auto Normal [facility] Comment on above: Order Comment: Speci men Type: BLOOD SPECIMENOrdering Facility: [facility] Address: [address] [place] [address] Performed By: #### 5 7021-8 ####[facility]ORATORYCLIA [id number] [place] [address] [place] Eosinophils (Bld) [#/Vol] 10*3/uL Normal <0.46 [facility] Comment on above: Order Comment: Speci men Type: BLOOD SPECIMENOrdering Facility: [facility] Address: [address] [place] [address] Performed By: #### 5 7021-8 ####[facility] LABORATORYCLIA [id number] [address] [place] Eosinophils/100 WBC (Bld) 0.0 % Normal [facility] Comment on above: Order Comment: Speci men Type: BLOOD SPECIMENOrdering Facility: [facility] Address: [address] [place] [address] Performed By: #### 5 7021-8 ####[facility] LABORATORYCLIA [id number] [address] Erythrocyte distribution width (RBC) [Ratio] 14.6 % Normal 11.5-15.0 [facility] Comment on above: Order Comment: Speci men Type: BLOOD SPECIMENOrdering Facility: [facility] Address: [address] [place] [address] Performed By: #### 5 7021-8 ####[facility]ORATORYCLIA [id number] [address] Hematocrit (Bld) [Volume fraction] 38.1 % Normal 36.0-46.0 [facility] Comment on above: Order Comment: Speci men Type: BLOOD SPECIMENOrdering Facility: [facility] Address: [address] [place] [address] Performed By: #### 5 7021-8 ####[facility] LABORATORYCLIA [id number] [address] [place] Hemoglobin (Bld) [Mass/Vol] 12.2 g/dL Normal 11.5-15.5 [facility] Comment on above: Order Comment: Speci men Type: BLOOD SPECIMENOrdering Facility: [facility] Address: [address] [place] [address] Performed By: #### 5 7021-8 ####[facility]ORATORYCLIA [id number] [address] Immature granulocytes (Bld) [#/Vol] 0.03 10*3/uL Normal <0.10 [facility] Comment on above: Order Comment: Speci men Type: BLOOD SPECIMENOrdering Facility: [facility] Address: [address] [place] [address] Performed By: #### 5 7021-8 ####[facility]ATORYCLIA [id number] [address] Immature granulocytes/100 WBC (Bld) 0.3 % Normal [facility] Comment on above: Order Comment: Speci men Type: BLOOD SPECIMENOrdering Facility: [facility] Address: [address] [place] [address] Performed By: #### 5 7021-8 ####[facility]ORATORYCLIA [id number] [address] [place] Lymphocytes (Bld) [#/Vol] 1.02 10*3/uL Normal 1.00-4.0 0 [facility] Comment on above: Order Comment: Speci men Type: BLOOD SPECIMENOrdering Facility: [facility] Address: [address] [place] [address] Performed By: #### 5 7021-8 ####[facility]ORATORYCLIA [id number] [address] Lymphocytes/100 WBC (Bld) 11.0 % Normal [facility] Comment on above: Order Comment: Speci men Type: BLOOD SPECIMENOrdering Facility: [facility] Address: [address] [place] [address] Performed By: #### 5 7021-8 ####[facility]ORATORYCLIA [id number] [address] [place] MCH (RBC) [Entitic mass] 28.2 pg Normal 26.0-34.0 [facility] Comment on above: Order Comment: Speci men Type: BLOOD SPECIMENOrdering Facility: [facility] Address: [address] [place] [address] Performed By: #### 5 7021-8 ####[facility]ORATORYCLIA [id number] [address] [place] MCHC (RBC) [Mass/Vol] 32.0 g/dL Normal 30.5-36.0 [facility] Comment on above: Order Comment: Speci men Type: BLOOD SPECIMENOrdering Facility: [facility] Address: [address] [place] [address] Performed By: #### 5 7021-8 ####[facility]ORATORYCLIA [id number] [address] [place] MCV (RBC) [Entitic vol] 88.0 fL Normal 80.0-100.0 A [facility] Comment on above: Order Comment: Speci men Type: BLOOD SPECIMENOrdering Facility: [facility] Address: [address] [place] [address] Performed By: #### 5 7021-8 ####[facility]ORATORYCLIA [id number] [address] STATES OF [facility] Monocytes (Bld) [#/Vol] 0.90 10*3/uL High <0.87 [facility] Comment on above: Order Comment: Speci men Type: BLOOD SPECIMENOrdering Facility: [facility] Address: [address] [place] [address] Performed By: #### 5 7021-8 ####[facility]ATORYCLIA [id number] [address] Monocytes/100 WBC (Bld) 9.7 % Normal A [facility] Comment on above: Order Comment: Speci men Type: BLOOD SPECIMENOrdering Facility: [facility] Address: [address] [place] [address] Performed By: #### 5 7021-8 ####[facility]ORATORYCLIA [id number] [address] [place] Neutrophils (Bld) [#/Vol] 7.31 10*3/uL Normal 1.45-7.5 0 [facility] Comment on above: Order Comment: Speci men Type: BLOOD SPECIMENOrdering Facility: [facility] Address: [address] [place] [address] Performed By: #### 5 7021-8 ####[facility]ATORYCLIA [id number] [address] [place] Neutrophils/100 WBC (Bld) 78.9 % Normal [facility] Comment on above: Order Comment: Speci men Type: BLOOD SPECIMENOrdering Facility: [facility] Address: [address] [place] [address] Performed By: #### 5 7021-8 ####[facility]ATORYCLIA [id number] [address] [place] Nucleated RBC (Bld) [#/Vol] 10*3/uL Normal <0.01 [facility] Comment on above: Order Comment: Speci men Type: BLOOD SPECIMENOrdering Facility: [facility] Address: [address] [place] [address] Performed By: #### 5 7021-8 ####[facility]ATORYCLIA [id number] [address] Nucleated RBC/100 WBC (Bld) [Ratio] 0.0 /100 WBC Normal [facility] Comment on above: Order Comment: Speci men Type: BLOOD SPECIMENOrdering Facility: [facility] Address: [address] [place] [address] Performed By: #### 5 7021-8 ####[facility]ATORYCLIA [id number] [address] Platelet mean volume (Bld) [Entitic vol] 9.7 fL Normal 9.0-12.7 [facility] Comment on above: Order Comment: Speci men Type: BLOOD SPECIMENOrdering Facility: [facility] Address: [address] [place] [address] Performed By: #### 5 7021-8 ####[facility]ATORYCLIA [id number] [address] [place] Platelets (Bld) [#/Vol] 221 10*3/uL Normal 150-400 [facility] Comment on above: Order Comment: Speci men Type: BLOOD SPECIMENOrdering Facility: [facility] Address: [address] [place] [address] Performed By: #### 5 7021-8 ####[facility]ORATORYCLIA [id number] [address] OF [facility] RBC (Bld) [#/Vol] 4.33 10*6/uL Normal 3.90-5.20 [facility] Comment on above: Order Comment: Speci men Type: BLOOD SPECIMENOrdering Facility: [facility] Address: [address] [place] [address] Performed By: #### 5 7021-8 ####[facility]ATORYCLIA [id number] [address] WBC (Bld) [#/Vol] 9.27 10*3/uL Normal 3.70-11.00 [facility] Comment on above: Order Comment: Speci men Type: BLOOD SPECIMENOrdering Facility: [facility] Address: [address] [place] [address] Performed By: #### 5 7021-8 ####[facility] LABORATORYIA [id number] [address] ECG COMPLETEon 04-03-2025 ECG COMPLETE Ventricular Rate : 6 6 BPM Atrial Rate : 66 BPM P-R Interval : 176 ms QRS Duration : 86 ms Q-T Interval : 418 ms QTC Calculation(Bazett) : 438 ms Calculated P [place] : 38 degrees Calculated R [place] : -9 degrees Calculated T [place] : 18 degrees NORMAL SINUS RHYTHM MINIMAL VOLTAGE CRITERIA FOR LVH, MAY BE NORMAL VARIANT ( R in aVL ) NONSPECIFIC ST ABNORMALITY ABNORMAL ECG WHEN COMPARED WITH ECG OF 07-Apr-2021 11:20, NO SIGNIFICANT CHANGE WAS FOUND Confirmed by MD SARANYA, FAIZA ([id number]) on 04/03/2025 3:49:03 PM NAME : FRANCIA GAMA PID : [id number] : 1960 Gender : Female Race : ORD : [id number] Procedure Date : Apr 03 2025 09:47:55 Edit Date : Apr 03 2025 15:49:08 Diagnosis: NORMAL SINUS RHYTHM MINIMAL VOLTAGE CRITERIA FOR LVH, MAY BE NORMAL VARIANT ( R in aVL ) NONSPECIFIC ST ABNORMALITY ABNORMAL ECG WHEN COMPARED WITH ECG OF 07-Apr-2021 11:20, NO SIGNIFICANT CHANGE WAS FOUND Confirmed by MD BEAVER ANUBHAV ([id number]) on 04/03/2025 3:49:03 PM Test Reason : Chest Pain Location : 200 : [facility] 5217 Overread By : MD BEAVER ANUBHAV Edited By : MD BEAVER ANUBHAV Referred By : MITRA SAAVEDRA Acquired by : RAVI HENLEY [facility] HIGH SENSITIVITY TROPONIN To n 04-03-2025 Troponin T.cardiac High sensitivity method [Mass/Vol] 16 ng/L High <12 [facility] Comment on above: Order Comment: Speci men Type: BLOOD SPECIMENOrdering Facility: [facility] Address: [address] [place] [address] Performed By: #### H STNT ####[facility]ORATORYCLIA [id number] [address] Troponin T.cardiac High sensitivity method [Mass/Vol] 15 ng/L High <12 [facility] Comment on above: Order Comment: Speci men Type: BLOOD SPECIMENOrdering Facility: [facility] Address: [address] [place] [address] Performed By: #### H STNT ####[facility]ORATORYCLIA [id number] [address] PT EDon 04-03-2025 PT ED HNO ID: [id number] Author: STEVEN JURADO RN Service: Nursing Author [...] on the 4th floor of the [facility]. Patient also given contact numbers for Dr. [...] teaching reviewed with patient. Steven Jurado RN [facility] XR UPPER GI SINGLE CONTRASTo n 04-03-2025 [...] seconds of fluoroscopy time. 30 images. Supine bag shop worker radiograph demonstrates scattered gas within the bowel [...] perforation. IMPRESSION: No evidence for postoperative complication. Drier Belt Conveyor: JAKUB Transcribe Date/Time: Apr 03 2025 8:37A Dictated by : JOVI VEGA MD This examination was interpreted and the report reviewed and electronically signed by: JOVI VEGA MD on Apr 03 2025 8:39AM EST [id number] [facility] ALLIED HEALTHon 04-02-2025 ALLIED HEALTH HNO ID: [id number] Author: TERRI GARDINER Chaplain Service: Spiritual Care Author Type: [employer] Type: Allied Health Filed: 04/02/2025 07:04 Note Text: SPIRITUAL CARE PROGRESS NOTE SERVICE DATE: 04/02/2025 SERVICE TIME: 6:30 AM As seasonal clerk, visited patient and loved ones in presurgery area. Listened empathetically and offered emotional and spiritual support. Prayed with patient and loved ones. Informed patient of 30/05 spiritual care. To contact the Spiritual Care Department: Please call [phone]. SIGNATURE: Chaplain Alka PATIENT NAME: Francia Gama DATE: April 02, 2025 TIME: 7:03 AM PAGER/CONTACT #: [phone] Normal [facility] ANES POSTPROC EVALon 025 ANES POSTPROC EVAL HNO ID: [id number] Author: AVA JUSTIN MD Service: Anesthesiology Author Type: Anesthesiologist Type: Anesthesia Postprocedure Evaluation Filed: 04/02/2025 16:08 Note Text: POST ANESTHESIA EVALUATION NOTE : 1960 Procedure Summary Date: 04/02/25 Room / [place] [address] [place] [address] OR Anesthesia Start: 715 Anesthesia Stop: 1240 Procedures: LAPAROSCOPIC RPR PARAESOHAGEAL [...] April 02, 2025 TIME: 4:08 PM CSN: [id number] [facility] ANES PRE-OPon 04-02-2025 ANES PRE-OP HNO ID: [id number] Author: SARTHAK MAHAN MD Service: Anesthesiology Author Type: Physician Type: Anesthesia Preprocedure Evaluation Filed: 04/02/2025 07:48 Note Text: ANESTHESIOLOGY DAY OF SURGERY NOTE : 1960 Procedure Information Anesthesia Start Date/Time: 04/02/25 0716 Procedures: LAPAROSCOPIC RPR PARAESOHAGEAL HERNIA W/ FUNDOPLASTY W/ MESH--Laparoscopic, possible open, paraesophageal hernia repair with Rosenda fundoplicatio- revision rosenda takedown (Abdomen) EGD (Abdomen) TRANSFUSION BLOOD (Abdomen) Location: [place] [address] [place] [address] OR Surgeons: Mitra Saavedra MD Estimated body [...] and consent discussed: yes. Patient / Responsible Alliance Party agrees to proceed: yes Patient / Surrogate agrees to blood products: Yes Potential Anesthesia issues that may suggest increased risk of complications or contraindication to planned procedure: none. Vitals Value Taken Time BP 145/99 04/02/25604 Pulse 77 04/02/25 06 Resp 16 04/02/25604 Temp 36.4 ?C (97.5 ?F) 04/02/25604 SpO2 98 % 04/02/25604 Facility-Administered Medications as of 04/02/2025 Medication Dose Route [...] Take 1 tablet by mouth once daily. losartan-hydroCHLOROt hiazide (HYZAAR) 100-12.5 mg per tablet Take 1 [...] April 02, 2025 TIME: 7:47 AM CSN: [id number] Normal [facility] CBC W Auto Differential pane l (Bld)on 04-02-2025 Basophils (Bld) [#/Vol] 10*3/uL Normal <0.11 [facility] Comment on above: Order Comment: Speci men Type: BLOOD SPECIMENOrdering Facility: [facility] Address: [address] [place] [address] Performed By: #### 5 7021-8 ####[facility] LABORATORYCLIA [id number] [place] [address] [place] Basophils/100 WBC (Bld) 0.1 % Normal [facility] Comment on above: Order Comment: Speci men Type: BLOOD SPECIMENOrdering Facility: [facility] Address: [address] [place] [address] Performed By: #### 5 7021-8 ####[facility]ATORYCLIA [id number] [place] [address] [place] Eosinophils (Bld) [#/Vol] 0.04 10*3/uL Normal <0.46 [facility] Comment on above: Order Comment: Speci men Type: BLOOD SPECIMENOrdering Facility: [facility] Address: [address] [place] [address] Performed By: #### 5 7021-8 ####[facility]ATORYCLIA [id number] [place] [address] [place] Eosinophils/100 WBC (Bld) 0.3 % Normal [facility] Comment on above: Order Comment: Speci men Type: BLOOD SPECIMENOrdering Facility: [facility] Address: [address] [place] [address] Performed By: #### 5 7021-8 ####[facility]ATORYCLIA [id number] [address] [place] Erythrocyte distribution width (RBC) [Ratio] 15.5 % High 11.5-15.0 [facility] Comment on above: Order Comment: Speci men Type: BLOOD SPECIMENOrdering Facility: [facility] Address: [address] [place] [address] Performed By: #### 5 7021-8 ####[facility]ATORYCLIA [id number] [address] [place] Hematocrit (Bld) [Volume fraction] 37.3 % Normal 36.0-46.0 [facility] Comment on above: Order Comment: Speci men Type: BLOOD SPECIMENOrdering Facility: [facility] Address: [address] [place] [address] Performed By: #### 5 7021-8 ####[facility]ORYCLIA [id number] [address] [place] Hemoglobin (Bld) [Mass/Vol] 12.2 g/dL Normal 11.5-15.5 [facility] Comment on above: Order Comment: Speci men Type: BLOOD SPECIMENOrdering Facility: [facility] Address: [address] [place] [address] Performed By: #### 5 7021-8 ####[facility]ORYCLIA [id number] [address] [place] Immature granulocytes (Bld) [#/Vol] 0.10 10*3/uL High <0.10 [facility] Comment on above: Order Comment: Speci men Type: BLOOD SPECIMENOrdering Facility: [facility] Address: [address] [place] [address] Performed By: #### 5 7021-8 ####[facility]ORYCLIA [id number] [address] [place] Immature granulocytes/100 WBC (Bld) 0.7 % Normal [facility] Comment on above: Order Comment: Speci men Type: BLOOD SPECIMENOrdering Facility: [facility] Address: [address] [place] [address] Performed By: #### 5 7021-8 ####[facility]ATORYCLIA [id number] [address] OF [facility] Lymphocytes (Bld) [#/Vol] 1.19 10*3/uL Normal 1.00-4.0 0 [facility] Comment on above: Order Comment: Speci men Type: BLOOD SPECIMENOrdering Facility: [facility] Address: [address] [place] [address] Performed By: #### 5 7021-8 ####[facility]ATORYCLIA [id number] [address] Lymphocytes/100 WBC (Bld) 7.8 % Normal [facility] Comment on above: Order Comment: Speci men Type: BLOOD SPECIMENOrdering Facility: [facility] Address: [address] [place] [address] Performed By: #### 5 7021-8 ####[facility]ATORYCLIA [id number] [address] [place] MCH (RBC) [Entitic mass] 29.3 pg Normal 26.0-34.0 [facility] Comment on above: Order Comment: Speci men Type: BLOOD SPECIMENOrdering Facility: [facility] Address: [address] [place] [address] Performed By: #### 5 7021-8 ####[facility]ATORYCLIA [id number] [address] [place] MCHC (RBC) [Mass/Vol] 32.7 g/dL Normal 30.5-36.0 [facility] Comment on above: Order Comment: Speci men Type: BLOOD SPECIMENOrdering Facility: [facility] Address: [address] [place] [address] Performed By: #### 5 7021-8 ####[facility]ORATORYCLIA [id number] [place] [address] [place] MCV (RBC) [Entitic vol] 89.4 fL Normal 80.0-100.0 [facility] Comment on above: Order Comment: Speci men Type: BLOOD SPECIMENOrdering Facility: [facility] Address: [address] [place] [address] Performed By: #### 5 7021-8 ####[facility]ATORYCLIA [id number] [place] [address] [place] Monocytes (Bld) [#/Vol] 0.29 10*3/uL Normal <0.87 [facility] Comment on above: Order Comment: Speci men Type: BLOOD SPECIMENOrdering Facility: [facility] Address: [address] [place] [address] Performed By: #### 5 7021-8 ####[facility]ATORYCLIA [id number] [address] Monocytes/100 WBC (Bld) 1.9 % Normal [facility] Comment on above: Order Comment: Speci men Type: BLOOD SPECIMENOrdering Facility: [facility] Address: [address] [place] [address] Performed By: #### 5 7021-8 ####[facility]ORATORYCLIA [id number] [address] [place] Neutrophils (Bld) [#/Vol] 13.67 10*3/uL High 1.45-7. 50 [facility] Comment on above: Order Comment: Speci men Type: BLOOD SPECIMENOrdering Facility: [facility] Address: [address] [place] [address] Performed By: #### 5 7021-8 ####[facility]ORATORYCLIA [id number] [address] [place] Neutrophils/100 WBC (Bld) 89.2 % Normal [facility] Comment on above: Order Comment: Speci men Type: BLOOD SPECIMENOrdering Facility: [facility] Address: [address] [place] [address] Performed By: #### 5 7021-8 ####[facility]ATORYCLIA [id number] [address] Platelet mean volume (Bld) [Entitic vol] 9.8 fL Normal 9.0-12.7 [facility] Comment on above: Order Comment: Speci men Type: BLOOD SPECIMENOrdering Facility: [facility] Address: [address] [place] [address] Performed By: #### 5 7021-8 ####[facility]ORATORYCLIA [id number] [address] [place] Platelets (Bld) [#/Vol] 292 10*3/uL Normal 150-400 [facility] Comment on above: Order Comment: Speci men Type: BLOOD SPECIMENOrdering Facility: [facility] Address: [address] [place] [address] Result Comment: No c lot detected. Performed By: #### 5 7021-8 ####[facility]ORATORYCLIA [id number] [address] OF [facility] RBC (Bld) [#/Vol] 4.17 10*6/uL Normal 3.90-5.20 [facility] Comment on above: Order Comment: Speci men Type: BLOOD SPECIMENOrdering Facility: [facility] Address: [address] [place] [address] Performed By: #### 5 7021-8 ####[facility]ATORYCLIA [id number] [address] [place] WBC (Bld) [#/Vol] 15.31 10*3/uL High 3.70-11.00 [facility] Comment on above: Order Comment: Speci men Type: BLOOD SPECIMENOrdering Facility: [facility] Address: [address] [place] [address] Performed By: #### 5 7021-8 ####[facility] LABORATORYCLIA [id number] [address] [place] HISTORY PHYSICALon 5 HISTORY PHYSICAL HNO ID: [id number] Author: MITRA SAAVEDRA MD Service: General Surgery [...] DATE: April 02, 2025 TIME: 7:09 AM [facility] OPERATIVE NOon 04-02-2025 OPERATIVE NO HNO ID: [id number] Author: MITRA SAAVEDRA MD Service: General Surgery Author Type: Physician Type: Operative Report Filed: 04/02/2025 12:38 Note Text: OPERATIVE/PROCEDURE REPORT LOG ID: [id number] Surgery/Procedure Date: 04/02/2025 Incision/Procedure Start Time: 7:47 AM Incision Close/Procedure End Time: 12:21 PM Surgeon(s)/Procedural ist(s) and Credit Collector(s): Surgeons and Role: * Mitra Saavedra MD - Primary * Ortiz Mcmullen DO - Resident - Assisting Rabbet Operator: Chris Ying SA Procedure(s): 1.- Laparoscopic repair of RECURRENT paraesophageal hernia - 22 modifier due to surgery being reoperative/revision with great amount of scar tissue and take down of previous Rosenda fundoplication 2.- Laparoscopic Rosenda fundoplication with mesh placement 3.- EGD 4.- Placement of bio-A mesh 5.- Bilateral Laparoscopic TAP Blocks Anesthesia: General Pre-Op/Pre-Procedure Diagnosis: Paraesophageal hernia and GERD Post-Op/Post-Procedur e Diagnosis: Paraesophageal hernia and GERD Operative Findings: [...] EGD unti (more content not included)... Normal [facility] Basic metabolic 2000 panelon 03-26-2025 Anion gap [Moles/Vol] 10 mmol/L Normal 8-15 [facility] Comment on above: Order Comment: Speci men Type: BLOOD SPECIMENOrdering Facility: [facility] Address: [address] [place] [address] Performed By: #### 2 4321-2 ####[facility] LABORATORYCLIA [id number] [place] [address] [place] Calcium [Mass/Vol] 9.3 mg/dL Normal 8.5-10.2 [facility] Comment on above: Order Comment: Speci men Type: BLOOD SPECIMENOrdering Facility: [facility] Address: [address] [place] [address] Performed By: #### 2 4321-2 ####[facility] LABORATORYCLIA [id number] [address] [place] Chloride [Moles/Vol] 103 mmol/L Normal 98-107 [facility] Comment on above: Order Comment: Speci men Type: BLOOD SPECIMENOrdering Facility: [facility] Address: [address] [place] [address] Performed By: #### 2 4321-2 ####[facility] LABORATORYCLIA [id number] [place] [address] [place] CO2 [Moles/Vol] 31 mmol/L High 22-30 [facility] Comment on above: Order Comment: Speci men Type: BLOOD SPECIMENOrdering Facility: [facility] Address: [address] [place] [address] Performed By: #### 2 4321-2 ####[facility] LABORATORYCLIA [id number] [place] [address] [place] Creatinine [Mass/Vol] 0.69 mg/dL Normal 0.58-0.96 [facility] Comment on above: Order Comment: Speci men Type: BLOOD SPECIMENOrdering Facility: [facility] Address: [address] [place] [address] Performed By: #### 2 4321-2 ####[facility] LABORATORYCLIA [id number] [address] [place] Creatinine and Glomerular filtration rate.predicted panel (S/P/Bld) 98 mL/min/1.73m??? Normal >=60 [facility] Comment on above: Order Comment: Sergio romero Type: BLOOD SPECIMENOrdering Facility: [facility] Address: [address] [place] [address] Result Comment: Laurel mated Glomerular Filtration Rate [...] actual GFR. Performed By: #### 2 4321-2 ####[facility] LABORATORYCLIA [id number] [place] [address] [place] Glucose [Mass/Vol] 110 mg/dL High 74-99 [facility] Comment on above: Order Comment: Sergio romero Type: BLOOD SPECIMENOrdering Facility: [facility] Address: [address] [place] [address] Result Comment: The [place] Diabetes Association (ADA) provides guidance for cutoff [...] Standards of Medical Care in Diabetes 2016, [place] Diabetes Association. Diabetes Care. 2016.39(Suppl 1). Performed By: #### 2 4321-2 ####[facility] LABORATORYCLIA [id number] [place] [address] [place] Potassium [Moles/Vol] 3.7 mmol/L Normal 3.7-5.1 [facility] Comment on above: Order Comment: Sergio romero Type: BLOOD SPECIMENOrdering Facility: [facility] Address: [address] [place] [address] Performed By: #### 2 4321-2 ####[facility] LABORATORYCLIA [id number] [address] STATES [facility] Sodium [Moles/Vol] 144 mmol/L Normal 136-144 [facility] Comment on above: Order Comment: Speci men Type: BLOOD SPECIMENOrdering Facility: [facility] Address: [address] [place] [address] Performed By: #### 2 4321-2 ####[facility] LABORATORYCLIA [id number] [address] STATES [facility] Urea nitrogen [Mass/Vol] 12 mg/dL Normal 7-21 [facility] Comment on above: Order Comment: Speci men Type: BLOOD SPECIMENOrdering Facility: [facility] Address: [address] [place] [address] Performed By: #### 2 4321-2 ####[facility] LABORATORYCLIA [id number] [address] CBC W Auto Differential pane l (Bld)on 03-26-2025 Basophils (Bld) [#/Vol] 0.03 10*3/uL Normal <0.11 [facility] Comment on above: Order Comment: Speci men Type: BLOOD SPECIMENOrdering Facility: [facility] Address: [address] [place] [address] Performed By: #### 5 7021-8 ####[facility]ORATORYCLIA [id number] [address] Basophils/100 WBC (Bld) 0.4 % Normal [facility] Comment on above: Order Comment: Speci men Type: BLOOD SPECIMENOrdering Facility: [facility] Address: [address] [place] [address] Performed By: #### 5 7021-8 ####[facility] LABORATORYCLIA [id number] [address] Differential cell count method Nom (Bld) Auto Normal [facility] Comment on above: Order Comment: Speci men Type: BLOOD SPECIMENOrdering Facility: [facility] Address: [address] [place] [address] Performed By: #### 5 7021-8 ####[facility]ORATORYCLIA [id number] [address] Eosinophils (Bld) [#/Vol] 0.29 10*3/uL Normal <0.46 [facility] Comment on above: Order Comment: Speci men Type: BLOOD SPECIMENOrdering Facility: [facility] Address: [address] [place] [address] Performed By: #### 5 7021-8 ####[facility]ORATORYCLIA [id number] [address] Eosinophils/100 WBC (Bld) 4.2 % Normal [facility] Comment on above: Order Comment: Speci men Type: BLOOD SPECIMENOrdering Facility: [facility] Address: [address] [place] [address] Performed By: #### 5 7021-8 ####[facility]ORATORYCLIA [id number] [address] Erythrocyte distribution width (RBC) [Ratio] 15.3 % High 11.5-15.0 [facility] Comment on above: Order Comment: Speci men Type: BLOOD SPECIMENOrdering Facility: [facility] Address: [address] [place] [address] Performed By: #### 5 7021-8 ####[facility]ORATORYCLIA [id number] [address] Hematocrit (Bld) [Volume fraction] 39.9 % Normal 36.0-46.0 [facility] Comment on above: Order Comment: Speci men Type: BLOOD SPECIMENOrdering Facility: [facility] Address: [address] [place] [address] Performed By: #### 5 7021-8 ####[facility]ORATORYCLIA [id number] [address] Hemoglobin (Bld) [Mass/Vol] 12.7 g/dL Normal 11.5-15.5 [facility] Comment on above: Order Comment: Speci men Type: BLOOD SPECIMENOrdering Facility: [facility] Address: [facility] [place] [address] Performed By: #### 5 7021-8 ####[facility]ORATORYCLIA [id number] [place] [address] [place] Immature granulocytes (Bld) [#/Vol] 10*3/uL Normal <0.10 [facility] Comment on above: Order Comment: Speci men Type: BLOOD SPECIMENOrdering Facility: [facility] Address: [address] [place] [address] Performed By: #### 5 7021-8 ####[facility] LABORATORYCLIA [id number] [address] [place] Immature granulocytes/100 WBC (Bld) 0.1 % Normal [facility] Comment on above: Order Comment: Speci men Type: BLOOD SPECIMENOrdering Facility: [facility] Address: [address] [place] [address] Performed By: #### 5 7021-8 ####[facility]ORATORYCLIA [id number] [place] [address] [place] Lymphocytes (Bld) [#/Vol] 1.26 10*3/uL Normal 1.00-4.0 0 [facility] Comment on above: Order Comment: Speci men Type: BLOOD SPECIMENOrdering Facility: [facility] Address: [address] [place] [address] Performed By: #### 5 7021-8 ####[facility]ORATORYCLIA [id number] [place] [address] [place] Lymphocytes/100 WBC (Bld) 18.4 % Normal [facility] Comment on above: Order Comment: Speci men Type: BLOOD SPECIMENOrdering Facility: [facility] Address: [address] [place] [address] Performed By: #### 5 7021-8 ####[facility]ORATORYCLIA [id number] [address] MCH (RBC) [Entitic mass] 29.0 pg Normal 26.0-34.0 [facility] Comment on above: Order Comment: Speci men Type: BLOOD SPECIMENOrdering Facility: [facility] Address: [address] [place] [address] Performed By: #### 5 7021-8 ####[facility]ATORYCLIA [id number] [address] [place] MCHC (RBC) [Mass/Vol] 31.8 g/dL Normal 30.5-36.0 [facility] Comment on above: Order Comment: Speci men Type: BLOOD SPECIMENOrdering Facility: [facility] Address: [address] [place] [address] Performed By: #### 5 7021-8 ####[facility]ATORYCLIA [id number] [address] MCV (RBC) [Entitic vol] 91.1 fL Normal 80.0-100.0 [facility] Comment on above: Order Comment: Speci men Type: BLOOD SPECIMENOrdering Facility: [facility] Address: [address] [place] [address] Performed By: #### 5 7021-8 ####[facility]ORATORYCLIA [id number] [address] Monocytes (Bld) [#/Vol] 0.61 10*3/uL Normal <0.87 [facility] Comment on above: Order Comment: Speci men Type: BLOOD SPECIMENOrdering Facility: [facility] Address: [address] [place] [address] Performed By: #### 5 7021-8 ####[facility]ORATORYCLIA [id number] [address] Monocytes/100 WBC (Bld) 8.9 % Normal [facility] Comment on above: Order Comment: Speci men Type: BLOOD SPECIMENOrdering Facility: [facility] Address: [address] [place] [address] Performed By: #### 5 7021-8 ####[facility]ORYCLIA [id number] [address] [place] Neutrophils (Bld) [#/Vol] 4.63 10*3/uL Normal 1.45-7.5 0 [facility] Comment on above: Order Comment: Speci men Type: BLOOD SPECIMENOrdering Facility: [facility] Address: [address] [place] [address] Performed By: #### 5 7021-8 ####[facility]ORYCLIA [id number] [address] [place] Neutrophils/100 WBC (Bld) 68.0 % Normal [facility] Comment on above: Order Comment: Speci men Type: BLOOD SPECIMENOrdering Facility: [facility] Address: [address] [place] [address] Performed By: #### 5 7021-8 ####[facility]ATORYCLIA [id number] [address] [place] [facility] Nucleated RBC (Bld) [#/Vol] 10*3/uL Normal <0.01 [facility] Comment on above: Order Comment: Speci men Type: BLOOD SPECIMENOrdering Facility: [facility] Address: [address] [place] [address] Performed By: #### 5 7021-8 ####[facility]ATORYCLIA [id number] [address] [place] Nucleated RBC/100 WBC (Bld) [Ratio] 0.0 /100 WBC Normal [facility] Comment on above: Order Comment: Speci men Type: BLOOD SPECIMENOrdering Facility: [facility] Address: [address] [place] [address] Performed By: #### 5 7021-8 ####[facility]ORATORYCLIA [id number] [address] Platelet mean volume (Bld) [Entitic vol] 10.2 fL Normal 9.0-12.7 [facility] Comment on above: Order Comment: Speci men Type: BLOOD SPECIMENOrdering Facility: [facility] Address: [address] [place] [address] Performed By: #### 5 7021-8 ####[facility]ATORYCLIA [id number] [address] Platelets (Bld) [#/Vol] 292 10*3/uL Normal 150-400 [facility] Comment on above: Order Comment: Speci men Type: BLOOD SPECIMENOrdering Facility: [facility] Address: [address] [place] [address] Performed By: #### 5 7021-8 ####[facility]ATORYCLIA [id number] [address] RBC (Bld) [#/Vol] 4.38 10*6/uL Normal 3.90-5.20 [facility] Comment on above: Order Comment: Speci men Type: BLOOD SPECIMENOrdering Facility: [facility] Address: [address] [place] [address] Performed By: #### 5 7021-8 ####[facility]ATORYCLIA [id number] [address] WBC (Bld) [#/Vol] 6.83 10*3/uL Normal 3.70-11.00 [facility] Comment on above: Order Comment: Speci men Type: BLOOD SPECIMENOrdering Facility: [facility] Address: [address] [place] [address] Performed By: #### 5 7021-8 ####[facility]ORATORYCLIA [id number] [address] OF [facility] HISTORY PHYSICALon HISTORY PHYSICAL HNO ID: [id number] Author: ALEJANDRO ALVES APRN.CNP Service: ? Author Type: Nurse Practitioner [...] surgery BP elevated in PST, pt denies CHISHOLM, CP or vision changes. Pt advised to [...] Negative for: dysuria, hematuria and renal failure. ANIMAL ECOLOGIST: Negative for abnormal vaginal bleeding, abnormal vaginal discharge. Endocrine: Negative for: diabetes mellitus and hypothyroidism. Hematology: Negative for: anemia, factor V Leiden, von Willebrand disease and chronic anti-coagulation/plat elet meds. Oncology: No history of CA metastasis, chemo within 30 days, or radiotherapy within 90 days. No history of oncological symptoms or problems. Psych: Positive for: anxiety and depression. Musculoskeletal: Positive for: back pain. Negative for: join (more content not included)... Normal [facility] CNOVon 03-07-2025 CNOV Office Visit (AGGENS4) FRANCIA GAMA ([id number]) 1960 F Date Time Provider Department 03/07/25 8:00 AM MITRA SAAVEDRA AGG4 During your visit today, we recorded the [...] UGI (01/30/21): moderate-sized hiatal hernia. - GES (49667): WNL - EGD: reflux esophagitis, duodenitis, disrupted [...] use of other drugs. She works at [employer]. She lives with her daughter Maria L (works at [employer]) PSHx: lumbar laminectomy (L4/5), lap CCx, paraesophageal [...] RMVL TUBE OVARY 10/07/2007 TX ECTOPIC W/O SALPINGAND/OOPHORECTO MY WRIST SURGERY HX Left 05/07/2007 fusion wrist-partial [...] Tobacco comments: (more content not included)... Normal [facility] Calculated very low density lipoprotein (VLDL) cholesterol measurementOrdered By: Julisa Cheung on 02-22-2025 Calculated very low density lipoprotein (VLDL) cholesterol measurement 16 mg/dL -40 [facility] VLDL Cholesterol 16 mg/dL -40 [facility] LDL calc ser/plasOrdered By: Julisa Cheung on 02-22-2025 Cholesterol in LDL [Mass/Vol] 102 mg/dL [facility] Comment on above: Huckpnandi=894-899 m g/dL & Higher Elos=241 mg/dL or greater LDL Cholesterol, Calculated 102 mg/dL [facility] Comment on above: Mmyyxthbxr=027-410 m g/dL & Higher Ozrq=827 mg/dL or greater Lipid Profileon 02-22-2025 CHOL:HDL 3.29 Normal [facility] Comment on above: Performed By: #### L 870.4356 #### [facility] [address] [place], [place], [id number] Cholesterol [Mass/Vol] 169 mg/dL Normal <=200 [facility] Comment on above: Result Comment: Chol esterol level, Desirable <200 mg/dL Borderline high cholesterol 200-239 mg/dL High cholesterol >=240 mg/dL Recommendations of the NCEP Adult Treatment Panel for the following risk-cutoff thresholds for the [place] population. Performed By: #### L 500.4100 #### [facility] [address] [place], [address] Cholesterol in HDL [Mass/Vol] 51 mg/dL Normal [facility] Comment on above: Result Comment: Rosanna onal Cholesterol Education Program (NCEP) guidelines: <40 mg/dL: Low HDL-cholesterol (major risk factor for CHD) >= 60 mg/dL: High HDL-cholesterol (negative risk factor for CHD) HDL-cholesterol is affected by a number of factors, e.g. smoking, exercise, hormones, sex and age. Performed By: #### L 500.4100 #### [facility] [address] [place], [address] Cholesterol in LDL [Mass/Vol] 102 mg/dL Normal [facility] Comment on above: Result Comment: Bord ydvbzm=771-981 mg/dL Higher Zjak=080 mg/dL or greater Performed By: #### L 500.4100 #### [facility] [address] [place], [address] Cholesterol in VLDL [Mass/Vol] 16 mg/dL Normal 5-40 [facility] Comment on above: Performed By: #### L 500.4100 #### [facility] [address] [place], [address] Triglyceride [Mass/Vol] 78 mg/dL Normal [facility] Comment on above: Result Comment: The drugs N-Acetylcysteine and Metamizole may falsely depress this assay. Normal range: <150 mg/dL Borderline High: 150-199 mg/dL High: 200-499 mg/dL Very High: >500 mg/dL Performed By: #### L 500.4100 #### [facility] [address] [place], [address] Screening total cholesterol/ high density lipoprotein (HDL) cholesterol ratioOrdered By: Julisa Cheung on 02-22-2025 Cholesterol.total/Cholest tia in HDL [Mass ratio] 3.29 {ratio} [facility] Serum or plasma cholesterol in HDL measurement (mass/volume)Ordered By: Julisa Cheung on 02-22-2025 Cholesterol in HDL [Mass/Vol] 51 mg/dL >40 [facility] Comment on above: National Cholesterol Education Program (NCEP) guidelines:<40 mg/dL: Low HDL-cholesterol (major risk factor for CHD)>= 60 mg/dL: High HDL-cholesterol (negative risk factor for CHD)HDL-cholesterol is affected by a number of factors, e.g. smoking, exercise, hormones, sex and age. Serum or plasma cholesterol measurement (mass/volume)Ordered By: Julisa Cheung on 02-22-2025 Cholesterol [Mass/Vol] 169 mg/dL <201 [facility] Comment on above: Cholesterol level, D esirable <200 mg/dLBorderline high cholesterol 200-239 mg/dLHigh cholesterol >=240 mg/dLRecommendations of the NCEP Adult Treatment Panel for the following risk-cutoff thresholds for the [place] population. Triglycerides measurementOrd ered By: Julisa Cheung on 02-22-2025 Triglyceride [Mass/Vol] 78 mg/dL <199 [facility] Comment on above: The drugs N-Acetylcy steine and Metamizole may falsely depress this assay. Normal range: <150 mg/dLBorderline High: 150-199 mg/dLHigh: 200-499 mg/dLVery High: >500 mg/dL CNPXiomara 02-04-2025 RONENN Telephone (AGGENS4) FRANCIA GAMA ([id number]) 1960 F Date Time Provider Department 02/04/25 MITRA SAAVEDRA4 During your visit today, we recorded the following information about you: Claudia Muse 02/04/2025 8:35 AM Signed Lvm and sent [facility] to reschedule 04/17 appcorky Saavedra is out of office 04/26. Allergies As of Date: 02/04/2025 Noted Allergy [...] ORAL) Take by mouth once daily. - losartan-hydroCHLOROt hiazide (HYZAAR) 100-25 mg per tablet Take 1 [...] pain [M54.50, G89.29]08/12/2021 Gastroesophageal reflux disease with esophagiti*08/12/2021 Vitamin D deficiency [E55.9] 08/12/2021 Paraesophageal hernia [K44.9] 08/12/2021 Preop examination [Z01.818] 09/28/2024 AARON (obstructive sleep apnea) [G47.33] 09/28/2024 Marijuana user [F12.90] 09/28/2024 Former smoker [Z87.891] 09/28/2024 Obesity (BMI 30-39.9) [E66.9] 09/28/2024 Screening for colon cancer [Z12.11] 09/28/2024 Hypertension [I10] 09/28/2024 Encounter Status:Closed by CLAUDIA MUSE on 02/04/25 [facility] Jose Roberto 02-01-2025 RONENN Telephone (AGGENS4) FRANCIA GAMA ([id number]) 1960 F Date Time Provider Department 02/01/25 MITRA SAAVEDRA4 During your visit today, we recorded the following information about you: Claudia Muse 02/01/2025 8:35 AM Signed Lvm and sent MCM [...] ORAL) Take by mouth once daily. - losartan-hydroCHLOROt hiazide (HYZAAR) 100-25 mg per tablet Take 1 [...] pain [M54.50, G89.29]08/12/2021 Gastroesophageal reflux disease with esophagiti*08/12/2021 Vitamin D deficiency [E55.9] 08/12/2021 Paraesophageal hernia [K44.9] 08/12/2021 Preop examination [Z01.818] 09/28/2024 AARON (obstructive sleep apnea) [G47.33] 09/28/2024 Marijuana user [F12.90] 09/28/2024 Former smoker [Z87.891] 09/28/2024 Obesity (BMI 30-39.9) [E66.9] 09/28/2024 Screening for colon cancer [Z12.11] 09/28/2024 Hypertension [I10] 09/28/2024 Encounter Status:Closed by CLAUDIA MUSE on 02/01/25 Normal [facility] Emergency Department Summary on 12-25-2024 Emergency Department Summary [facility] Medical Records Department [address] [place] [address] Emergency Department Summary 12/25/24 MR#: [id number] Acct: [id number] Name: FRANCIA GAMA Rep #: [id number] : 1960 64 From: Uche Kuhn MD [...] denies fever. Prior similar symptoms: No Recent Ill[facility]ati [facility] Medical History Acute frontal sinusitis, unspecified Severe [...] tab PO QDAY 04/27/24 Unknown His tory mg-hydrochlorothiazid e 12.5 mg tablet meloxicam 15 mg tablet [...] Denies anxiety Endocrine Endocrinology: Denies cold intolerance Hematologic/Lymphatic Hematologic/Lymphatic : Reports none Allergic/Immunologic Allergic/Immunologic ED: Denies mouth [...] extremities. Neurovascularly intact. 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 Dorsi plantarflexion intact. No edema. No cords. Nontender. She has a rash on both lower extremities lower shins red. Does not sterling. Petechiae appropriate. There is no vesicles. No pustules. Calves are nontender. No cords. It is worse on the right lower extremity than the (more content not included)... Normal [facility] CNCOon 12-06-2024 CNCO Letter Text Normal [facility] CNOVon 12-06-2024 CNOV Office Visit (AGGENS4) FRANCIA GAMA ([id number]) 1960 F Date Time Provider Department 12/06/24 [...] UGI (01/30/21): moderate-sized hiatal hernia. - GES (07968): WNL - EGD: reflux esophagitis, duodenitis, disrupted fundoplication with recurrent hiatal hernia - Pathology: Benign gastric mucosa with features of very mild reactive gastropathy. Duodenum, biopsy - No pathologic abnormalities. Esophagus, biopsy - Benign squamous mucosa showing no pathologic abnormalities. Per my last clinic note in 07/2024: she reports that two months ago she was evaluated at [facility] due to abdominal pain. She [...] use of other drugs. 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 She lives with her daughter Maria L (works at [employer]) PSHx: lumbar laminectomy (L4/5), lap CCx, paraesophageal [...] Dr. Capps (more content not included)... Normal [facility] ANES POSTPROC EVALon 024 ANES POSTPROC EVAL HNO ID: [id number] Author: CAITLIN ANGELES MD Service: Anesthesiology Author Type: Anesthesiologist Type: Anesthesia Postprocedure Evaluation Filed: 10/12/2024 12:35 Note Text: POST ANESTHESIA EVALUATION NOTE : 1960 Procedure Summary Date: 10/12/24 Room / Location: [facility] Anesthesia Start: 829 Anesthesia Stop: 847 [...] October 12, 2024 TIME: 12:35 PM CSN: [id number] Normal [facility] ANES PRE-OPon 10-12-2024 ANES PRE-OP HNO ID: [id number] Author: CAITLIN ANGELES MD Service: Anesthesiology Author [...] Mitra Saavedra MD Procedure: EGD DIAGNOSTIC Location: [facility] Estimated body mass index is 29.95 kg/m? [...] and consent discussed: yes. Patient / Responsible Alliance Party agrees to proceed: yes Patient / Surrogate agrees to blood products: blood products not planned Potential Anesthesia issues that may suggest increased risk of complications or contraindication to planned procedure: none. Vitals Value Taken Time BP 161/94 10/12/24736 Pulse 67 10/12/24726 Resp 13 10/12/24726 Temp 35.9 ?C (96.6 ?F) 10/12/24726 SpO2 97 % 10/12/24726 No current facility-administered medications on file as of 10/12/2024. Outpatient [...] (BETTY ORAL) Take by mouth once daily. losartan-hydroCHLOROt hiazide (HYZAAR) 100-25 mg per tablet Take 1 [...] within 48 hours of Surgery/Procedure. SIGNATURE: Caitlin Angeels MD PATIENT NAME: Francia Gama DATE: October 12, 2024 TIME: 8:29 AM CSN: [id number] Normal [facility] EGD Study observation Oseas magana 10-12-2024 [facility] Gastrointestinal Endoscopy Patient Name: Francia Gama Procedure Date: 10/12/2024 8:28 AM Date of : 1960 Admit Type: Outpatient Room: [place] [address] Gender: Female Note Status: Finalized Attending MD: Mitra Saavedra MD, [id number] Procedure: Upper GI endoscopy Indications: Heartburn, Follow-up [...] antiplatelet agents. Procedure Code(s): --- Professional --- 00458, Esophagogastroduodeno scopy, flexible, transoral; with biopsy, single or multiple --- Keenan (more content not included)... PROVATION [facility] Radiology Study observation (narrative) [facility] NURSING PROGon 10-12-2024 NURSING PROG HNO ID: [id number] Author: ALEXA CASE RN Service: Nursing Author Type: Registered Nurse [...] and minimal nose bleeding following procedure. Normal [facility] SURGICAL PATHOLOGYon CASE REPORT Normal [facility] Comment on above: Order Comment: Sergio romero Type: TISSUE SPECIMENOrdering Facility: [facility] Address: [address] [place] [address] Result Comment: Surg ica Pathology Report Case: [id number] Authorizing Provider: Mitra Saavedra MD Collected: 10/12/2024 08:43 AM Ordering Location: [facility] Received: 10/12/2024 01:14 PM Pathologist: Eliezer Reynoso MD Specimen: Stomach, Antrum, Biopsy Performed By: #### S ####[facility] LABORATORYCLIA [id number] [address] FINAL DIAGNOSIS [facility] Comment on above: Order Comment: Sergio romero Type: TISSUE SPECIMENOrdering Facility: [facility] Address: [address] [place] [address] Result Comment: Henna jara, antrum, biopsy: - Predominantly antral-type gastric mucosa with minimal chronic gastritis and features of reactive gastropathy. - Morphologic features of Helicobacter pylori infection are not identified. Performed By: #### S ####[facility] LABORATORYCLIA [id number] [address] FINAL PERFORMING LAB [facility] Comment on above: Order Comment: Speci men Type: TISSUE SPECIMENOrdering Facility: [facility] Address: [address] [place] [address] Result Comment: Diag nostic interpretation performed at [facility], [address] [place] [address] CLIA# [id number] Manager Of Procurement: Barney Riley M.D. Performed By: #### S ####[facility] LABORATORYCLIA [id number] [address] OF [facility] GROSS DESCRIPTION Normal [facility] Comment on above: Order Comment: Speci men Type: TISSUE SPECIMENOrdering Facility: [facility] Address: [address] [place] [address] Result Comment: Henna jara, Antrum, Biopsy Received in formalin labeled stomach antrum biopsy are multiple pieces of adair, soft tissue aggregating to 1.7 x 0.3 x 0.2 cm. Totally submitted in one cassette. Gross examination performed at [facility], [address] [place] [address] October 12, 2024 3:32 PM Performed By: #### S ####[facility] LABORATORYCLIA [id number] [address] [place] Upper GI endoscopy 024 Upper GI endoscopy [facility] Gastrointestinal Endoscopy Patient Name: Francia Gama Procedure Date: 10/12/2024 8:28 AM Date of : 1960 Admit Type: Outpatient Room: [place] [address] Gender: Female Note Status: Finalized Attending MD: Mitra Saavedra MD, [id number] Procedure: Upper GI endoscopy Indications: Heartburn, Follow-up [...] antiplatelet agents. Procedure Code(s): --- Professional --- 67779, Esophagogastroduodeno scopy, flexible, transoral; with biopsy, single or multiple --- Technical --- 55478, Esophagogastroduodeno scopy, flexible, transoral; with biopsy, single or multiple Diagnosis Code(s): --- Professional --- K44.9, Diaphragmatic hernia without obstruction or gangrene Z98.890, Other specified postprocedural states R12, Heartburn K21.9, Gastro-esophageal reflux disease without esophagitis --- Technical --- K44.9, Diaphragmatic hernia without obstruction or gangrene Z98.890, Other specified postprocedural states R12, Heartburn K21.9, Gastro-esophageal reflux disease without esophagitis CPT copyright 2020 [employer]. All rights reserved. The codes documented in this report are preliminary and upon certified coder review may be revised to meet current compliance requirements. Attending Participation: I personally performed the entire procedure. Scope In: 8:39:31 AM Scope Out: 8:44:40 AM MD Mitra Dwyer MD 10/12/2024 8:54:13 AM This report has been signed electronically by Mitra Saavedra MD Number of Addenda: 0 Note Initiated On: 10/12/2024 8:28 AM Normal [facility] ANES POSTPROC EVALon 09-28- 024 ANES POSTPROC EVAL HNO ID: [id number] Author: CAITLIN ANGELES MD Service: Anesthesiology Author Type: Anesthesiologist Type: Anesthesia Postprocedure Evaluation Filed: 09/28/2024 11:52 Note Text: POST ANESTHESIA EVALUATION NOTE : 1960 Procedure Summary Date: 09/28/24 Room / Location: [facility] Anesthesia Start: 904 Anesthesia Stop: 948 [...] September 28, 2024 TIME: 11:52 AM CSN: [id number] Normal [facility] ANES PRE-OPon 09-28-2024 ANES PRE-OP HNO ID: [id number] Author: CAITLIN ANGELES MD Service: Anesthesiology Author [...] Steven Peoples MD Procedure: COLONOSCOPY SCREENING Location: [facility] Estimated body mass index is 31.52 [...] and consent discussed: yes. Patient / Responsible Alliance Party agrees to proceed: yes Patient / Surrogate [...] ORAL) Take by mouth once daily. - losartan-hydroCHLOROt hiazide (HYZAAR) 100-25 mg per tablet Take 1 [...] one(1) tablet daily. No current facility-administered medications on file as of 09/28/2024. I have interviewed and examined the patient. I have reviewed the medical record and/or the pre-anesthesia evaluation, pertinent labs, and test results. This contains updated information obtained within 48 hours of Surgery/Procedure. SIGNATURE: Caitlin Angeles MD PATIENT NAME: Francia Gama DATE: September 28, 2024 TIME: 8:08 AM CSN: [id number] [facility] BRIEF OP NOTon 09-28-2024 BRIEF OP NOT HNO ID: [id number] Author: Steven PEOPLES MD Service: General Surgery Author Type: Physician Type: Brief Op Note Filed: 09/28/2024 09:48 Note Text: BRIEF OPERATIVE / PROCEDURE NOTE LOG ID: [id number] SURGERY/PROCEDURE DATE: 09/28/2024 INCISION/PROCEDURE START TIME: 9:11 AM INCISION CLOSE/PROCEDURE END TIME: 9:42 AM SURGEON(S)/PROCEDURAL IST(S) AND TRADE MARK EXAMINER(S): Steven Peoples MD - Proceduralist No Additional Staff SURGERY/PROCEDURE(S): colonoscopy ANESTHESIA: Monitored Anesthesia Care FINDINGS: good prep Normal digital exam Scope to cecum and terminal ileum- Mild diverticulosis Very sharply angulated sigmoid Submucosal lipoma near hepatic flexure ESTIMATED BLOOD LOSS: 0 ml SPECIMENS: None COMPLICATIONS: None CLOSURE TECHNIQUE: PRE-OP/PRE-PROCEDURE DIAGNOSIS: colon cancer screening POST-OP/POST-PROCEDUR E DIAGNOSIS: Submucosal lipoma Diverticulosis Otherwise normal exam Patient was accompanied to the next level of care by a licensed practitioner from the surgical team pending completion of this brief op note (or operative note) SIGNATURE: Steven Peoples MD PATIENT NAME: Francia Gama DATE: September 28, 2024 TIME: 9:46 AM [facility] Colonoscopyon 09-28-2024 Colonoscopy [facility] Gastrointestinal Endoscopy Patient Name: Francia Gama Procedure Date: 09/28/2024 8:59 AM Date of : 1960 Admit Type: Outpatient Room: [place] [address] Gender: Female Note Status: Gas Brazer Override Attending MD: Steven Peoples MD, [id number] Procedure: Colonoscopy Indications: Abdominal pain in the [...] antiplatelet agents. Procedure Code(s): --- Professional --- 54717, Colonoscopy, flexible; diagnostic, including collection of specimen(s) by brushing or washing, when performed (separate procedure) --- Technical --- 97956, Colonoscopy, flexible; diagnostic, including collection of specimen(s) by brushing or washing, when performed (separate procedure) Diagnosis Code(s): --- Professional --- K57.30, Diverticulosis of large intestine without perforation or abscess without bleeding R10.32, Left lower quadrant pain --- Technical --- K57.30, Diverticulosis of large intestine without perforation or abscess without bleeding R10.32, Left lower quadrant pain CPT copyright 2020 [employer]. All rights reserved. The codes documented in this report are preliminary and upon certified coder review may be revised to meet current compliance requirement (more content not included)... Normal [facility] HISTORY PHYSICALon HISTORY PHYSICAL HNO ID: [id number] Author: MAYANK CORRALES APRN.CNP Service: Anesthesiology Author Type: Nurse Practitioner Type: [...] Giles NEAL SURG CHOLECYSTECTOMY W/CHOLANGIOGRAPHY 09/10/2008 nORMAL ioc LUMBAR SPINE FUSION COMBINED 05/07/2021 L4-5 w/iliac bone graft AND facetectomy TOTAL ABDOMINAL HYSTERECT W/WO RMVL TUBE OVARY 10/07/2007 TX ECTOPIC W/O SALPINGAND/OOPHORECTO MY WRIST SURGERY HX Left 05/07/2007 fusion wrist-partial [...] Take by mouth once daily. 09/26/2024 Yes losartan-hydroCHLOROt hiazide (HYZAAR) 100-25 mg per tablet Take 1 tablet by mouth once daily. 09/26/2024 at 1200 Yes amlodipine besylate (AMLODIPINE ORAL) Take 10 mg by mouth once daily. 09/26/2024 at 1200 Yes cyclobenzaprine (more content not included)... Normal [facility] RF Gastrointestinal tract up per Views W air contrast PO and W barium contrast Arsalan 08-30-2024 IMPRESSION: Postoperative changes of Rosenda fundoplication. Recurrent moderate-sized hiatal hernia. Positive for gastroesophageal reflux. Drier Belt Conveyor: PSCGénesis Transcribe Date/Time: Aug 30 2024 11:24A Dictated by : LUISANA MILLER MD This examination was interpreted and the report reviewed and electronically signed by: LUISANA MILLER MD on Aug 30 2024 11:28AM EST [facility] * * *Final Report* * * DATE [...] Duodenum: No ulcerations or erosions. Normal distensibility. [facility] Provider, [facility] - 08/30/2024 * * *Final Report* * [...] moderate-sized hiatal hernia. Positive for gastroesophageal reflux. Drier Belt Conveyor: JAKUB Transcribe Date/Time: Aug 30 2024 11:24A Dictated by : LUISANA MILLER MD This examination was interpreted and the report reviewed and electronically signed by: LUISANA MILLER MD on Aug 30 2024 11:28AM EST [facility] Radiology Study observation (narrative) [facility] RF Gastrointestinal tract up per Views W air contrast PO and W barium contrast POOrdered By: [facility]cf Provider on 08-30-2024 [facility] XR UPPER GI DOUBLE CONTRAST/ AIRon 08-30-2024 [...] moderate-sized hiatal hernia. Positive for gastroesophageal reflux. Drier Belt Conveyor: PSCB Transcribe Date/Time: Aug 30 2024 11:24A Dictated by : LUISANA MILLER MD This examination was interpreted and the report reviewed and electronically signed by: LUISANA MILLER MD on Aug 30 2024 11:28AM EST [id number] N [facility] CNCOon 08-22-2024 CNCO Letter Text [facility] CNPNon 08-17-2024 CNPN Telephone (AGGENS3) FRANCIA GAMA ([id number]) 1960 F Date Time Provider Department 08/17/24 Steven PEOPLES3 During your visit today, we [...] ORAL) Take by mouth once daily. - losartan-hydroCHLOROt hiazide (HYZAAR) 100-25 mg per tablet Take 1 [...] pain [M54.50, G89.29]08/12/2021 Gastroesophageal reflux disease with esophagiti*08/12/2021 Vitamin D deficiency [E55.9] 08/12/2021 Paraesophageal hernia [K44.9] 08/12/2021 Encounter Status:Closed by DEANN SANTOS on 08/17/24 [facility] CNPNon 08-08-2024 CNPN Telephone (AGGENS3) FRANCIA GAMA ([id number]) 1960 F Date Time Provider Department 08/08/24 Steven PEOPLES AGGENS3 During your visit today, [...] ORAL) Take by mouth once daily. - losartan-hydroCHLOROt hiazide (HYZAAR) 100-25 mg per tablet Take 1 [...] pain [M54.50, G89.29]08/12/2021 Gastroesophageal reflux disease with esophagiti*08/12/2021 Vitamin D deficiency [E55.9] 08/12/2021 Paraesophageal hernia [K44.9] 08/12/2021 Encounter Status:Closed by DEANN SANTOS on 08/08/24 [facility] Office Visit (AGGENS4) FRANCIA GAMA ([id number]) 1960 F Date Time Provider Department 08/02/24 [...] two months ago she was evaluated at [facility] due to abdominal pain. She [...] use of other drugs. She works at [employer]. She lives with her daughter Maria L (works at [employer]) PSHx: lumbar laminectomy (L4/5), lap CCx, [...] RMVL TUBE OVARY 10/07/2007 TX ECTOPIC W/O SALPINGAND/OOPHORECTO MY WRIST SURGERY HX Left 05/07/2007 fusion wrist-partial WRIST SURGERY HX Left 04/07/2006 fusion wrist-partial FAMILY HISTORY: FAMILY HISTORY Problem Relation Age of Onset other (a fib) Mother Diabetes Mother other (HTn) Mother Coronary Artery Disease Father Heart Fa (more content not included)... [facility] (AGGENS4) FRANCIA GAMA ([id number]) 1960 F Date Time Provider Department 08/02/24 [...] ORAL) Take by mouth once daily. - losartan-hydroCHLOROt hiazide (HYZAAR) 100-25 mg per tablet Take 1 [...] pain [M54.50, G89.29]08/12/2021 Gastroesophageal reflux disease with esophagiti*08/12/2021 Vitamin D deficiency [E55.9] 08/12/2021 Paraesophageal hernia [K44.9] 08/12/2021 Encounter Status:Closed by KELSEY COBB on 08/02/24 [facility] 05-25-2024 CNPN Telephone (AGGENS4) FRANCIA GAMA ([id number]) 1960 F Date Time Provider Department 05/25/24 MITRA SAAVEDRA AGGENS4 During your visit today, we recorded the following information about you: Suzie Abraham 05/25/2024 8:04 AM Signed VM received - patient requested to cancel appointment due to transportation issues - appointment cancelled. LVM for patient to reschedule appointment - requested patient call back to reschedule appointment. [employer] message sent to patient. Allergies As of [...] ORAL) Take by mouth once daily. - losartan-hydroCHLOROt hiazide (HYZAAR) 100-25 mg per tablet Take 1 [...] pain [M54.50, G89.29]08/12/2021 Gastroesophageal reflux disease with esophagiti*08/12/2021 Vitamin D deficiency [E55.9] 08/12/2021 Paraesophageal hernia [K44.9] 08/12/2021 Encounter Status:Closed by SUZIE ABRAHAM on 05/25/24 Normal [facility] Absolute lymphocyte countOrd ered By: Van Cheung on 10-05-2023 Lymphocytes Auto (Unsp spec) [#/Vol] 1.79 10*3/uL 0.83-4.51 [facility] Basophil percentageOrdered B y: Van Cheung on 10-05-2023 Basophil percentage [employer] [facility] Comment on above: Previous reported re sult: 5.8 K/kg1Gqcjno by: BURTON on 10/05/23:180 Basophil percentage 5.8 % 0-5 [facility] Basophils/100 WBC (Bld) 0.5 % 0-1 [facility] Bilirubin [Mass/Vol] 0.30 mg/dL 0.20-1.00 [facility] Comment on above: For patients on eltr ombopag therapy, use of Dimension [place] TBIL is not recommended. Eosinophils/100 WBC (Bld) 3.3 % 0-5 [facility] Neutrophils (Bld) [#/Vol] 3.2 10*3/uL 2.0-7.7 [facility] Neutrophils/100 WBC (Bld) 56.0 % 47-70 [facility] Protein [Mass/Vol] 7.8 g/dL 6.4-8.2 [facility] Blood erythrocytes count (nu mber/volume)Ordered By: Van Cheung on 10-05-2023 RBC (Bld) [#/Vol] 4.23 10*6/uL 4.2-5.4 [facility] Blood hemoglobin measurement (mass/volume)Ordered By: Van Cheung on 10-05-2023 Hemoglobin (Bld) [Mass/Vol] 12.5 g/dL 12.0-15.0 [facility] Blood leukocytes count corre cted for nucleated erythrocytes (number/volume)Ordered By: Van Cheung on 10-05-2023 WBC corrected for nucl RBC (Bld) [#/Vol] 5.5 K/mm3 4.4-11.0 [facility] Blood lymphocytes/100 leukoc ytesOrdered By: Van Cheung on 10-05-2023 Lymphocytes/100 WBC (Bld) 31.1 % 19-41 [facility] Blood monocytes/100 leukocyt esOrdered By: Van Cheung on 10-05-2023 Monocytes/100 WBC (Bld) 8.9 % 0-10 [facility] Blood platelet mean volumeOr dered By: Van Cheung on 10-05-2023 Platelet mean volume (Bld) [Entitic vol] 10.0 fL 6.2-12.0 [facility] Determination of erythrocyte mean corpuscular volume (MCV)Ordered By: Van Cheung on 10-05-2023 MCV (RBC) [Entitic vol] 90.8 fL 81-99 [facility] Direct bilirubinOrdered By: Van Cheung on 10-05-2023 Bilirubin.direct [Mass/Vol] 0.09 mg/dL 0.00-0.30 [facility] Erythrocyte sedimentation ra teOrdered By: Van Cheung on 10-05-2023 ESR (Bld) [Velocity] 20 mm/h 0-30 [facility] Hematocrit Auto (Bld) [Volum e fraction]Ordered By: Van Cheung on 10-05-2023 Hematocrit (Bld) [Volume fraction] 38.4 % 37-47 [facility] Laboratory - Chemistry and C hemistry - challengeOrdered By: Van Cheung on 10-05-2023 Albumin [Mass/Vol] 3.4 g/dL 2.9-4.4 [facility] ALP [Catalytic activity/Vol] 107 U/L 45-117 [facility] ALT [Catalytic activity/Vol] 22 U/L 13-56 [facility] Globulin (S) [Mass/Vol] 4.3 g/dL 2.2-4.2 [facility] - Hematology and Cell countsOrdered By: Van Cheung on 10-05-2023 Erythrocyte distribution width (RBC) [Entitic vol] 47.8 fL 35.1-43.9 [facility] Erythrocyte distribution width (RBC) [Ratio] 14.4 % 11.6-14.6 [facility] Immature granulocytes/100 WBC (Bld) 0.200 % 0.0-0.9 [facility] Comment on above: IG% - Immature Granu locytes (promyelocytes, myelocytes and metamyelocytes) > 1% indicates that a LEFT SHIFT is Present. MCH (RBC) [Entitic mass] 29.6 pg 27.0-32.0 [facility] Nucleated RBC/100 WBC (Bld) [Ratio] 0 % 0-5 [facility] MCHC Auto (RBC) [Mass/Vol]Or dered By: Van Cheung on 10-05-2023 MCHC (RBC) [Mass/Vol] 32.6 g/dL 32-36 [facility] No Panel InformationOrdered By: Van Cheung on 10-05-2023 Addendum Document Comment . [facility] Comment on above: The SPE pattern appe ars unremarkable. Evidence ofmonoclonal protein is not apparent.Performed at: [facility] [place] [id number] Director: Juan Francisco Hernandez PhD, Phone: [phone] Sisby-3-Mdqucpclv 0.2 g/dL 0.0-0.4 [facility] Joisr-6-Umkpxcmiw 1.0 g/dL 0.4-1.0 [facility] Anti-Nuclear Antibody Screen Negative Negative [facility] Comment on above: Performed at: [facility] [address] [id number] Director: Juan Francisco Hernandez PhD, Phone: [phone] Gamma Globulins 1.3 g/dL 0.4-1.8 [facility] Platelets bldOrdered By: Cari Cheung on 10-05-2023 Platelets (Bld) [#/Vol] 304 10*3/uL 150-450 [facility] Protein Fractions Elph [Inte rp]Ordered By: Van Cheung on 10-05-2023 Protein Fractions [Interp] Comment . [facility] Comment on above: Protein electrophore sis scan will follow via computer,mail, or dot net architect delivery. Serum albumin to globulin ra jesus by protein electrophoresisOrdered By: Van Cheung on 10-05-2023 Albumin/Globulin Elph [Mass ratio] 0.9 0.7-1.7 [facility] Serum globulin measurement ( mass/volume)Ordered By: Van Cheung on 10-05-2023 Globulin (S) [Mass/Vol] 3.8 g/dL 2.2-3.9 [facility] Serum or plasma albumin mila urement (mass/volume)Ordered By: Van Cheung on 10-05-2023 Albumin [Mass/Vol] 3.5 g/dL 3.2-5.0 [facility] Serum or plasma beta globuli n measurement by electrophoresis (mass/volume)Ordered By: Van Cheung on 10-05-2023 Beta globulin Elph [Mass/Vol] 1.2 g/dL 0.7-1.3 [facility] Serum or plasma protein mono clonal measurement by electrophoresis (mass/volume)Ordered By: Van Cheung on 10-05-2023 Protein.monoclonal Elph [Mass/Vol] Not Observed g/dL Not Observed [facility] Serum or plasma uric acid me asurement (mass/volume)Ordered By: Van Cheung on 10-05-2023 Urate [Mass/Vol] 3.5 mg/dL 2.6-6.0 [facility] Comment on above: The drugs N-Acetylcy steine and Metamizole may falsely depress this assay. Serum rheumatoid factor dete ctionOrdered By: Van Cheung on 10-05-2023 Rheumatoid factor Ql (S) < 10.0 IU/mL <15 [facility] Thin prep Papanicolaou smear with manual screeningOrdered By: Van Cheung on 10-05-2023 Thin prep Papanicolaou smear with manual screening 23 U/L 15-37 [facility] Total protein bloodOrdered B y: Van Cheung on 10-05-2023 Protein [Mass/Vol] 7.2 g/dL 6.0-8.5 [facility] Basophil percentageOrdered B y: Van Cheung on 08-11-2023 Bilirubin [Mass/Vol] 0.20 mg/dL 0.20-1.00 [facility] Comment on above: For patients on eltr ombopag therapy, use of Dimension [place] TBIL is not recommended. Chloride [Moles/Vol] 104 mmol/L 98-107 [facility] Glucose [Mass/Vol] 98 mg/dL 74-106 [facility] Potassium [Moles/Vol] 3.7 mmol/L 3.5-5.1 [facility] Protein [Mass/Vol] 7.7 g/dL 6.4-8.2 [facility] Sodium [Moles/Vol] 138 mmol/L 136-145 [facility] WBC (Bld) [#/Vol] 5.2 10*3/uL 4.4-11.0 [facility] Blood erythrocytes count (nu mber/volume)Ordered By: Van Cheung on 08-11-2023 RBC (Bld) [#/Vol] 4.36 10*6/uL 4.2-5.4 [facility] Blood hemoglobin measurement (mass/volume)Ordered By: Van Cheung on 08-11-2023 Hemoglobin (Bld) [Mass/Vol] 13.0 g/dL 12.0-15.0 [facility] Blood platelet mean volumeOr dered By: Van Cheung on 08-11-2023 Platelet mean volume (Bld) [Entitic vol] 10.2 fL 6.2-12.0 [facility] Determination of erythrocyte mean corpuscular volume (MCV)Ordered By: Van Cheung on 08-11-2023 MCV (RBC) [Entitic vol] 92.4 fL 81-99 [facility] Hematocrit Auto (Bld) [Volum e fraction]Ordered By: Van Cheung on 08-11-2023 Hematocrit (Bld) [Volume fraction] 40.3 % 37-47 [facility] Laboratory - Chemistry and C hemistry - challengeOrdered By: Van Cheung on 08-11-2023 ALP [Catalytic activity/Vol] 103 U/L 45-117 [facility] ALT [Catalytic activity/Vol] 29 U/L 13-56 [facility] CO2 [Moles/Vol] 30.0 mmol/L 21.0-32.0 [facility] Globulin (S) [Mass/Vol] 4.0 g/dL 2.2-4.2 [facility] Magnesium [Mass/Vol] 2.7 mg/dL 1.6-2.6 [facility] Urea nitrogen/Creatinine [Mass ratio] 17.6 mg/mg 10-20 [facility] - Hematology and Cell countsOrdered By: Van Cheung on 08-11-2023 Erythrocyte distribution width (RBC) [Entitic vol] 48.4 fL 35.1-43.9 [facility] Erythrocyte distribution width (RBC) [Ratio] 14.2 % 11.6-14.6 [facility] MCH (RBC) [Entitic mass] 29.8 pg 27.0-32.0 [facility] MCHC Auto (RBC) [Mass/Vol]Or dered By: Van Cheung on 08-11-2023 MCHC (RBC) [Mass/Vol] 32.3 g/dL 32-36 [facility] No Panel InformationOrdered By: Van Cheung on 08-11-2023 Estimated GFR (MDRD) Amer 94 mL/min >60 [facility] Comment on above: GFR Calc Estimated GFR (MDRD) Non-Af Amer 78 mL/min >60 [facility] Comment on above: Non- GFR Calc Thyroid Stimulating Hormone (TSH) 2.62 uIU/mL 0.358-3.74 [facility] Platelets bldOrdered By: Cari Cheung on 08-11-2023 Platelets (Bld) [#/Vol] 293 10*3/uL 150-450 [facility] Serum or plasma albumin mila urement (mass/volume)Ordered By: Van Cheung on 08-11-2023 Albumin [Mass/Vol] 3.7 g/dL 3.2-5.0 [facility] Serum or plasma albumin/glob ulin mass ratioOrdered By: Van Cheung on 08-11-2023 Albumin/Globulin [Mass ratio] 0.9 {ratio} 0.9-2.4 [facility] Serum or plasma calcium mila urement (mass/volume)Ordered By: Van Cheung on 08-11-2023 Calcium [Mass/Vol] 9.1 mg/dL 8.5-10.1 [facility] Serum or plasma creatinine m easurement (mass/volume)Ordered By: Van Cheung on 08-11-2023 Creatinine [Mass/Vol] 0.79 mg/dL 0.55-1.02 [facility] Comment on above: The validity of the calculated GFR & GFRAA in patients over 70 years has not been determined. Clinical correlation is essential. Serum or plasma urea nitroge n measurement (mass/volume)Ordered By: Van Cheung on 08-11-2023 Urea nitrogen [Mass/Vol] 14 mg/dL 7-18 [facility] Thin prep Papanicolaou smear with manual screeningOrdered By: Van Cheung on 08-11-2023 Thin prep Papanicolaou smear with manual screening 26 U/L 15-37 [facility] Thin prep Papanicolaou smear with manual screening 4 5-15 [facility] XR LUMBAR LIMITED 2V AP/LATo n 04-02-2022 [facility] Basophil percentageon 2021 Bilirubin [Mass/Vol] 0.50 mg/dL 0.20-1.00 [facility] Work Phone: Comment on above: For patients on eltr ombopag therapy, use of Dimension [place] TBIL is not recommended. Chloride [Moles/Vol] 106 mmol/L 98-107 [facility] Work Phone: Cholesterol [Mass/Vol] 205 mg/dL <200 [facility] Work Phone: Comment on above: <200 mg/dL Desirable 200-240 mg/dL Borderline >240 mg/dL High Risk Glucose [Mass/Vol] 109 mg/dL 74-106 [facility] Work Phone: Comment on above: Fasting Glucose resu lt from 100 to 125 mg/dL suggests IMPAIRED HOMEOSTASIS per A.D.A. criteria. Potassium [Moles/Vol] 3.2 mmol/L 3.5-5.1 [facility] Work Phone: Protein [Mass/Vol] 7.9 g/dL 6.4-8.2 [facility] Work Phone: Sodium [Moles/Vol] 141 mmol/L 136-145 [facility] Work Phone: Triglyceride [Mass/Vol] 80 mg/dL [facility] Work Phone: Comment on above: The drugs N-Acetylcy steine and Metamizole may falsely depress this assay.Serum Triglycerides Reference Interval Normal <150 mg/dL Borderline high 150 - 199 mg/dL High 200 - 499 mg/dL Very High > or = 500 mg/dL WBC (Bld) [#/Vol] 5.2 10*3/uL 4.4-11.0 [facility]: Blood erythrocytes count (nu mber/volume)on 01-25-2022 RBC (Bld) [#/Vol] 4.44 10*6/uL 4.2-5.4 [facility]: Blood hemoglobin measurement (mass/volume)on 01-25-2022 Hemoglobin (Bld) [Mass/Vol] 13.6 g/dL 12.0-15.0 [facility] Work Phone: Blood platelet mean volumeon 01-25-2022 Platelet mean volume (Bld) [Entitic vol] 10.4 fL 6.2-12.0 [facility] Work Phone: Determination of erythrocyte mean corpuscular volume (MCV)on 01-25-2022 MCV (RBC) [Entitic vol] 91.0 fL 81-99 [facility] Work Phone: Hematocrit Auto (Bld) [Volum e fraction]on 01-25-2022 Hematocrit (Bld) [Volume fraction] 40.4 % 37-47 [facility] Work Phone: Laboratory - Chemistry and C hemistry - challengeon 01-25-2022 ALP [Catalytic activity/Vol] 96 U/L 45-117 [facility] Work Phone: ALT [Catalytic activity/Vol] 30 U/L 13-56 [facility] Work Phone: CO2 [Moles/Vol] 28.0 mmol/L 21.0-32.0 [facility] Work Phone: Globulin (S) [Mass/Vol] 4.1 g/dL 2.2-4.2 [facility] Work Phone: Urea nitrogen/Creatinine [Mass ratio] 11.3 mg/mg 10-20 [facility] Work Phone: Laboratory - Hematology and Cell countson 01-25-2022 Erythrocyte distribution width (RBC) [Entitic vol] 45.4 fL 35.1-43.9 [facility] Work Phone: Erythrocyte distribution width (RBC) [Ratio] 13.4 % 11.6-14.6 [facility] Work Phone: MCH (RBC) [Entitic mass] 30.6 pg 27.0-32.0 [facility] Work Phone: MCHC Auto (RBC) [Mass/Vol]on 01-25-2022 MCHC (RBC) [Mass/Vol] 33.7 g/dL 32-36 [facility] Work Phone: No Panel Informationon 01-25 Estimated GFR (MDRD) Amer 94 mL/min >60 [facility] Work Phone: Comment on above: GFR Calc Estimated GFR (MDRD) Non-Af Amer 78 mL/min >60 [facility] Work Phone: Comment on above: Non- GFR Calc Thyroid Stimulating Hormone (TSH) 1.83 uIU/mL 0.358-3.74 [facility] Work Phone: Vitamin D 25-Hydroxy 50.8 ng/mL [facility] Work Phone: Comment on above: Vitamin D 25(OH) Sta tus Range Deficiency <20 ng/mL (50nmol/L) Insufficiency 20 - 30 ng/mL (50 - 75 nmol/L) Sufficiency 30 - 100 ng/mL (75 - 250 nmol/L) Toxicity >100 ng/mL (>250 nmol/L) Platelets bldon 01-25-2022 Platelets (Bld) [#/Vol] 289 10*3/uL 150-450 [facility] Work Phone: Serum or plasma albumin mila urement (mass/volume)on 01-25-2022 Albumin [Mass/Vol] 3.8 g/dL 3.2-5.0 [facility] Work Phone: Serum or plasma albumin/glob ulin mass ratioon 01-25-2022 Albumin/Globulin [Mass ratio] 0.9 {ratio} 0.9-2.4 [facility] Work Phone: Serum or plasma calcium mila urement (mass/volume)on 01-25-2022 Calcium [Mass/Vol] 8.8 mg/dL 8.5-10.1 [facility] Work Phone: Serum or plasma cholesterol in HDL measurement (mass/volume)on 01-25-2022 Cholesterol in HDL [Mass/Vol] 62 mg/dL [facility] Work Phone: Comment on above: The drugs N-Acetylcy steine and Metamizole may falsely depress this assay. Reference Range HDL <40 mg/dL Low HDL Cholesterol HDL >or= 60 mg/dL High HDL Cholesterol Serum or plasma cholesterol in VLDL measurement (mass/volume)on 01-25-2022 Cholesterol in VLDL [Mass/Vol] 16 mg/dL 5-40 [facility] Work Phone: Serum or plasma creatinine m easurement (mass/volume)on 01-25-2022 Creatinine [Mass/Vol] 0.80 mg/dL 0.55-1.02 [facility] Work Phone: Comment on above: The validity of the calculated GFR & GFRAA in patients over 70 years has not been determined. Clinical correlation is essential. Serum or plasma low density lipoprotein (LDL) cholesterol measurement (mass/volume)on 01-25-2022 Cholesterol in LDL [Mass/Vol] 127 mg/dL 0-130 [facility] Work Phone: Serum or plasma urea nitroge n measurement (mass/volume)on 01-25-2022 Urea nitrogen [Mass/Vol] 9 mg/dL 7-18 [facility] Work Phone: Thin prep Papanicolaou smear with manual screeningon 01-25-2022 Thin prep Papanicolaou smear with manual screening 32 U/L 15-37 [facility] Work Phone: Thin prep Papanicolaou smear with manual screening 7 5-15 [facility] Work Phone: CNOVon 11-24-2021 CNOV Office Visit (UCWSTR ) FRANCIA GAMA ([id number]) 1960 F Date Time Provider Department 11/24/21 2:00 PM [facility] During your visit today, we recorded the [...] improve, but then started last night with CHISHOLM, chills, diarrhea. She has had 2 positive [...] ORAL) Take by mouth once daily. - losartan-hydroCHLOROt hiazide (HYZAAR) 100-25 mg per tablet Take 1 [...] to be (more content not included)... Normal [facility] COVID w FLU A+B Routon 11-24 Influenza A PCR Negative Normal [facility] Comment on above: Performed By: #### C OVFLU #### [facility] [address] [place], [place] [address] Influenza B PCR Negative Normal [facility] Comment on above: Performed By: #### C OVFLU #### [facility] [address] [place], [place] [address] SARS-CoV-2 (COVID-19) RNA HOWIE+probe Ql (Unsp spec) UPPER RESPIRATORY TRACT SWAB Normal [facility] Comment on above: Performed By: #### C OVFLU #### [place] [id number] SARS-CoV-2 (COVID-19) RNA HOWIE+probe Ql (Unsp spec) Positive for COVID19 (SARS CoV2) by RT-PCR or equivalent method. Critically abnormal Negative for COVID19 (SARS CoV2) by RT-PCR or equivalent method. [facility] Comment on above: Result Comment: This test was developed and its performance characteristics determined by [facility]'s [facility] Pathology and Laboratory Medicine [place]. This test has been authorized by FDA under an Emergency Use Authorization (EUA). This test has been validated in accordance with the FDA's Guidance Document Policy for Diagnostics Testing in Laboratories Certified to Perform High Complexity Testing under CLIA prior to Emergency use Authorization for Coronavirus Disease 2019 during the Public Health Emergency issued on January 05, 2020. Test performed by [facility], [facility]ology and Laboratory [facility] [place], [address] [place] [id number]. Performed By: #### C OVFLU #### [place] [id number] Laboratory - Microbiology an d Antimicrobial susceptibilityon 11-19-2021 SARS-CoV-2 (COVID-19) RNA HOWIE+probe Ql (Unsp spec) Not detected Not Detect [facility] Work Phone: Comment on above: Normal [...] (Unsp spec) UPPER RESPIRATORY TRACT SWAB Normal [facility] Comment on above: Performed By: #### P OCOVD #### [place] [address] SARS-CoV-2 (COVID-19) RNA HOWIE+probe Ql (Unsp spec) Negative for COVID19 (SARS CoV2) by RT-PCR or equivalent method. Normal Negative for COVID19 (SARS CoV2) by RT-PCR or equivalent method. [facility] Comment on above: Result Comment: This test was developed and its performance characteristics determined by [facility]'s [facility]ology and Laboratory [facility] [place]. This test has been authorized by FDA under an Emergency Use Authorization (EUA). This test has been validated in accordance with the FDA's Guidance Document Policy for Diagnostics Testing in Laboratories Certified to Perform High Complexity Testing under CLIA prior to Emergency use Authorization for Coronavirus Disease 2019 during the Public Health Emergency issued on January 05, 2020. Test performed by [facility], [facility]ology and Laboratory [facility] [place], [address] [place] [address]. Performed By: #### P OCOVD #### [place] [address] PreOp/PreProc COVIDon 2020 SARS-CoV-2 (COVID-19) RNA HOWIE+probe Ql (Unsp spec) UPPER RESPIRATORY TRACT SWAB Normal [facility] Comment on above: Performed By: #### P OCOVD #### [place] [address] SARS-CoV-2 (COVID-19) RNA HOWIE+probe Ql (Unsp spec) Negative for COVID19 (SARS CoV2) by RT-PCR or equivalent method. Normal Negative for COVID19 (SARS CoV2) by RT-PCR or equivalent method. [facility] Comment on above: Result Comment: This test was developed and its performance characteristics determined by [facility] and Laboratory Medicine [place]. This test has been authorized by FDA under an Emergency Use Authorization (EUA). This test has been validated in accordance with the FDA's Guidance Document Policy for Diagnostics Testing in Laboratories Certified to Perform High Complexity Testing under CLIA prior to Emergency use Authorization for Coronavirus Disease 2019 during the Public Health Emergency issued on January 05, 2020. Test performed by [facility], [facility], [facility], [place] [address]. Performed By: #### P OCOVD #### [place] [address] PreOp/PreProc COVIDon 2020 SARS-CoV-2 (COVID-19) RNA HOWIE+probe Ql (Unsp spec) UPPER RESPIRATORY TRACT SWAB Normal [facility] Comment on above: Performed By: #### P OCOVD #### [place] [address] SARS-CoV-2 (COVID-19) RNA HOWIE+probe Ql (Unsp spec) Negative for COVID19 (SARS CoV2) by RT-PCR or equivalent method. Normal Negative for COVID19 (SARS CoV2) by RT-PCR or equivalent method. [facility] Comment on above: Result Comment: This test was developed and its performance characteristics determined by [facility]'s [facility] and Laboratory Medicine [place]. This test has been authorized by FDA under an Emergency Use Authorization (EUA). This test has been validated in accordance with the FDA's Guidance Document Policy for Diagnostics Testing in Laboratories Certified to Perform High Complexity Testing under CLIA prior to Emergency use Authorization for Coronavirus Disease 2019 during the Public Health Emergency issued on January 05, 2020. Test performed by [facility], [facility], [facility] [place] [address]. Performed By: #### P OCOVD #### [facility] [address] [place], [place] [address] MRI LUMBAR SPINE WO/W IVCONo n 07-23-2020 [...] and assume there are 5 lumbar-type vertebrae. Drier Belt Conveyor: PSCB Transcribe Date/Time: Jul 23 2020 11:41A Dictated by : JOSEMANUEL HUERTA MD This examination was interpreted and the report reviewed and electronically signed by: JOSEMANUEL HUERTA MD on Jul 23 2020 12:06PM [facility] XR Hand 3+ Views Righton XR Hand 3+ Views Right Exam Date/Time: 01/21/2019 02:04 EDT Reason for Exam: Fall Report STUDY: XR Hand 3+ Views Right;; 01/21/2019 2:04 am INDICATION: Fall. COMPARISON: None. ACCESSION NUMBER(S): [id number] ORDERING CLINICIAN: Maciej Rich FINDINGS: Soft tissue [...] am Signed by: Terri Wilks MD Technologist: [facility] Vital Signs Date Time Vital Sign Value Performing Clinician Facility 05-28-2025 09:49-0400 Body mass index (BMI) [Ratio] 27.79 kg/m2 Mitra Saavedra MD Work Phone: [facility] 05-28-2025 09:49-0400 Body weight 75.75 kg Mitra Saavedra MD Work Phone: [facility] Comment on above: pt reported 05-01-2025 04:23-0400 Body temperature 98.7 [degF] Dr. Julisa Cheung MD Work Phone: [facility] 05-01-2025 04:23-0400 Diastolic blood pressure 98 mm[Hg] Dr. Julisa Cheung MD Work Phone: [facility] 05-01-2025 04:23-0400 Heart rate 82 /min Dr. Julisa Cheung MD Work Phone: [facility] 05-01-2025 04:23-0400 Respiratory rate 18 /min Dr. Julisa Cheung MD Work Phone: [facility] 05-01-2025 04:23-0400 SaO2% (BldA) [Mass fraction] 96 % Dr. Julisa Cheung MD Work Phone: [facility] 05-01-2025 04:23-0400 Systolic blood pressure 163 mm[Hg] Dr. Julisa Cheung MD Work Phone: [facility] 05-01-2025 01:11-0400 Body height 162.[address] Julisa Cheung MD Work Phone: [facility] 05-01-2025 01:11-0400 Body mass index (BMI) [Ratio] 29.7 kg/m2 Dr. Julisa Cheung MD Work Phone: [facility] 05-01-2025 01:11-0400 Body weight 78.[address] Julisa Cheung MD Work Phone: [facility] 04-29-2025 15:14-0400 Body mass index (BMI) [Ratio] 27.79 kg/m2 Mitra Saavedra MD Work Phone: [facility] 04-29-2025 15:14-0400 Body weight 75.75 kg Mitra Saavedra MD Work Phone: [facility] Comment on above: pt reported 04-16-2025 10:53-0400 Body height 165.1 cm April Myers APRN.LEAD MAINTENANCE TECHNICIAN Work Phone: [facility] 04-16-2025 10:53-0400 Body mass index (BMI) [Ratio] 28.92 kg/m2 April Myers APRN.LEAD MAINTENANCE TECHNICIAN Work Phone: [facility] 04-16-2025 10:53-0400 Body weight 78.83 kg April Browningdenise EMT DRIVER.LEAD MAINTENANCE TECHNICIAN Work Phone: [facility] 04-16-2025 10:53-0400 Diastolic blood pressure 70 mm[Hg] Aprilsharon Myers EMT DRIVER.LEAD MAINTENANCE TECHNICIAN Work Phone: [facility] 04-16-2025 10:53-0400 Heart rate 72 /min April Myers EMT DRIVER.LEAD MAINTENANCE TECHNICIAN Work Phone: [facility] 04-16-2025 10:53-0400 Systolic blood pressure 124 mm[Hg] April Davinshanthi EMT DRIVER.LEAD MAINTENANCE TECHNICIAN Work Phone: [facility] 03-07-2025 08:10-0400 Body height 165.1 cm Mitra Saavedra MD Work Phone: [facility] 03-07-2025 08:10-0400 Body mass index (BMI) [Ratio] 30.12 kg/m2 Mitra Saavedra MD Work Phone: [facility] 03-07-2025 08:10-0400 Body weight 82.1 kg Mitra Saavedra MD Work Phone: [facility] 03-07-2025 08:10-0400 Diastolic blood pressure 73 mm[Hg] Mitra Saavedra MD Work Phone: [facility] 03-07-2025 08:10-0400 Heart rate 84 /min Mitra Saavedra MD Work Phone: [facility] 03-07-2025 08:10-0400 SaO2% (BldA) [Mass fraction] 97 % Mitra Saavedra MD Work Phone: [facility] 03-07-2025 08:10-0400 Systolic blood pressure 131 mm[Hg] Mitra Saavedra MD Work Phone: [facility] 12-25-2024 13:25-0500 Body temperature 98.8 [degF] Dr. Julisa Cheung MD Work Phone: [facility] 12-25-2024 13:25-0500 Diastolic blood pressure 118 mm[Hg] Dr. Julisa Cheung MD Work Phone: [facility] 12-25-2024 13:25-0500 Heart rate 92 /min Dr. Julisa Cheung MD Work Phone: [facility] 12-25-2024 13:25-0500 Respiratory rate 15 /min Dr. Julisa Cheung MD Work Phone: [facility] 12-25-2024 13:25-0500 SaO2% (BldA) [Mass fraction] 100 % Dr. Julisa Cheung MD Work Phone: [facility] 12-25-2024 13:25-0500 Systolic blood pressure 198 mm[Hg] Dr. Julisa Cheung MD Work Phone: [facility] 12-25-2024 11:44-0500 Body height 165.[address] Julisa Cheung MD Work Phone: [facility] 12-25-2024 11:44-0500 Body mass index (BMI) [Ratio] 30.1 kg/m2 Dr. Julisa Cheung MD Work Phone: [facility] 12-25-2024 11:44-0500 Body weight 82.[address] Julisa Cheung MD Work Phone: [facility] 12-06-2024 08:01-0500 Body height 165.1 cm Mitra Saavedra MD Work Phone: [facility] 12-06-2024 08:01-0500 Body mass index (BMI) [Ratio] 30.39 kg/m2 Mitra Saavedra MD Work Phone: [facility] 12-06-2024 08:01-0500 Body weight 82.83 kg Mitra Saavedra MD Work Phone: [facility] 12-06-2024 08:01-0500 Diastolic blood pressure 80 mm[Hg] Mitra Saavedra MD Work Phone: [facility] 01-30-2025 08:01-0500 Heart rate 79 /min Mitra Saavedra MD Work Phone: [facility] 12-06-2024 08:01-0500 SaO2% (BldA) [Mass fraction] 98 % Mitra Saavedra MD Work Phone: [facility] 12-06-2024 08:01-0500 Systolic blood pressure 177 mm[Hg] Mitra Saavedra MD Work Phone: [facility] 10-12-2024 09:05-0500 Diastolic blood pressure 87 mm[Hg] Mitra Saavedra MD Work Phone: [facility] 10-12-2024 09:05-0500 Heart rate 70 /min Mitra Saavedra MD Work Phone: [facility] 10-12-2024 09:05-0500 Respiratory rate 16 /min Mitra Saavedra MD Work Phone: [facility] 10-12-2024 09:05-0500 SaO2% (BldA) [Mass fraction] 95 % Mitra Saavedra MD Work Phone: [facility] 10-12-2024 09:05-0500 Systolic blood pressure 146 mm[Hg] Mitra Saavedra MD Work Phone: [facility] 10-12-2024 08:48-0500 Body temperature 97.11 [degF] Mitra Saavedra MD Work Phone: [facility] 10-12-2024 07:27-0500 Body height 165.1 cm Mitra Saavedra MD Work Phone: [facility] 10-12-2024 07:27-0500 Body mass index (BMI) [Ratio] 29.95 kg/m2 Mitra Saavedra MD Work Phone: [facility] 10-12-2024 07:27-0500 Body weight 81.65 kg Mitra Saavedra MD Work Phone: [facility] 09-28-2024 10:05-0500 Diastolic blood pressure 89 mm[Hg] MIKALA Peoples MD Work Phone: [facility] 09-28-2024 10:05-0500 Heart rate 76 /min MIKALA Peoples MD Work Phone: [facility] 09-28-2024 10:05-0500 Respiratory rate 19 /min MIKALA Peoples MD Work Phone: [facility] 09-28-2024 10:05-0500 SaO2% (BldA) [Mass fraction] 97 % MIKALA Peoples MD Work Phone: [facility] 09-28-2024 10:05-0500 Systolic blood pressure 122 mm[Hg] MIKALA Peoples MD Work Phone: [facility] 09-28-2024 09:49-0500 Body temperature 97.3 [degF] MIKALA Peoples MD Work Phone: [facility] 08-02-2024 11:01-0400 Body height 165.1 cm Mitra Saavedra MD Work Phone: [facility] 08-02-2024 11:01-0400 Body mass index (BMI) [Ratio] 31.52 kg/m2 Mitra Saavedra MD Work Phone: [facility] 08-02-2024 11:01-0400 Body weight 85.91 kg Mirta Saavedra MD Work Phone: [facility] 08-02-2024 11:01-0400 Diastolic blood pressure 82 mm[Hg] Mitra Saavedra MD Work Phone: [facility] 08-02-2024 11:01-0400 Heart rate 73 /min Mitra Saavedra MD Work Phone: [facility] 08-02-2024 11:01-0400 Systolic blood pressure 160 mm[Hg] Mitra Saavedra MD Work Phone: [facility] 12-03-2022 22:30-0500 Diastolic blood pressure 93 mm[Hg] [facility] 12-03-2022 22:30-0500 Heart rate 77 /min [facility] [place] 12-03-2022 22:30-0500 Respiratory rate 18 /min [facility] 12-03-2022 22:30-0500 SaO2% (BldA) [Mass fraction] 98 % [facility] 12-03-2022 22:30-0500 Systolic blood pressure 172 mm[Hg] [facility] 12-03-2022 19:25-0500 Body height 167.64 cm [facility] [place] 12-03-2022 19:25-0500 Body mass index (BMI) [Ratio] 30.8 kg/m2 [facility] 12-03-2022 19:25-0500 Body temperature 97.2 [degF] [facility] 12-03-2022 19:25-0500 Body weight 86.63 kg [facility] [place] 04-02-2022 10:52-0400 Body height 165.1 cm Paul Twin DO Work Phone: [facility] 04-02-2022 10:52-0400 Body temperature 98.01 [degF] Paul Twin DO Work Phone: [facility] 04-02-2022 10:52-0400 Body weight 89.4 kg Paul Twin DO Work Phone: [facility] 04-02-2022 10:52-0400 Diastolic blood pressure 91 mm[Hg] Paul Twin DO Work Phone: [facility] 04-02-2022 10:52-0400 Heart rate 78 /min Paul Twin DO Work Phone: [facility] 04-02-2022 10:52-0400 SaO2% (BldA) [Mass fraction] 100 % Paul Twin DO Work Phone: [facility] 04-02-2022 10:52-0400 Systolic blood pressure 141 mm[Hg] Paul Twin DO Work Phone: [facility] 03-03-2021 09:50-0400 Body height 163.2 cm Mitra Saavedra MD Work Phone: [facility] 03-03-2021 09:50-0400 Body weight 90.45 kg Mitra Saavedra MD Work Phone: [facility] 03-03-2021 09:50-0400 Diastolic blood pressure 102 mm[Hg] Mitra Saavedra MD Work Phone: [facility] 03-03-2021 09:50-0400 Heart rate 60 /min Mitra Saavedra MD Work Phone: [facility] 03-03-2021 09:50-0400 SaO2% (BldA) [Mass fraction] 99 % Mitra Saavedra MD Work Phone: [facility] 03-03-2021 09:50-0400 Systolic blood pressure 150 mm[Hg] Mitra Saavedra MD Work Phone: [facility] 02-10-2021 11:24-0400 Body Temperature 97.7 [degF] [facility] 02-10-2021 11:24-0400 Body weight 89.81 kg [facility] [facility] 02-10-2021 11:24-0400 BP Diastolic 87 mm[Hg] [facility] ic 02-10-2021 11:24-0400 BP Systolic 128 mm[Hg] [facility] 02-10-2021 11:24-0400 Height 165.1 cm [facility] 02-10-2021 11:24-0400 Pulse (Heart Rate) 63 /min [facility] linic 02-10-2021 11:24-0400 Pulse Oximetry 98 % [facility] 02-10-2021 11:24-0400 Respiratory Rate 16 /min [facility] 09-24-2020 10:34-0500 BP Diastolic 90 mm[Hg] [facility] 09-24-2020 10:34-0500 BP Systolic 153 mm[Hg] [facility] 09-24-2020 10:34-0500 Pulse (Heart Rate) 62 /min [facility]ina 09-24-2020 10:05-0500 Body Temperature 97.7 [degF] [facility] c 09-24-2020 10:05-0500 Body weight 91.63 kg [facility] 09-24-2020 10:05-0500 Height 165.1 cm [facility] 09-24-2020 10:05-0500 Pulse Oximetry 98 % [facility] 09-24-2020 10:05-0500 Respiratory Rate 16 /min [facility] 07-23-2020 11:06-0400 Body Temperature 98.01 [degF] Vj Sandhu [facility] 07-23-2020 11:06-0400 Body [facility] 92.53 [facility] 07-23-2020 11:06-0400 BP Diastolic 78 mm[Hg] [facility] 07-23-2020 11:06-0400 BP Systolic 117 mm[Hg] Vj Sandhu [facility] ic 07-23-2020 11:06-0400 Height 165.1 cm Vj Sandhu [facility] ic 07-23-2020 11:06-0400 Pulse (Heart Rate) 56 /min [facility] 07-23-2020 11:06-0400 Pulse Oximetry 94 % [facility] Sand[facility] 07-23-2020 11:06-0400 Respiratory Rate 16 /min Vj Sandhu [facility] 07-04-2020 11:56-0400 Body Temperature 96.91 [degF] [facility] 07-04-2020 11:56-0400 Body weight 90.72 kg Vj Sandhu [facility] 07-04-2020 11:56-0400 BP Diastolic 91 mm[Hg] [facility] 07-04-2020 11:56-0400 BP Systolic 128 mm[Hg] [facility] 07-04-2020 11:56-0400 Height [facility] 07-04-2020 11:56-0400 Pulse (Heart Rate) 66 /min [facility] 07-04-2020 11:56-0400 Pulse Oximetry 98 % [facility] 07-04-2020 11:56-0400 Respiratory Rate 16 /min Vj Sandhu [facility] Encounters Encounter Date Encounter Type Care Provider Facility Start: 05-28-2025 End: 05-28-2025 Telephone encounter Mitra Saavedra MD Work Phone: [facility] Comment on above: Patient Question (Ne eds RTW letter) Start: 05-24-2025 ambulatory Julisa tafoyay:[facility] Start: 05-01-2025 End: 05-01-2025 Emergency department patient visit Dr. Julisa Cheung MD Work Phone: -Emergency Department Work Phone: Start: 04-29-2025 End: 04-29-2025 Telephone encounter Mitra Saavedra MD Work Phone: [facility] Comment on above: Follow Up (After off ice appointment to discuss diet advancement) Start: 04-18-2025 End: 04-18-2025 Telephone encounter Mitra aSavedra MD Work Phone: [facility] Comment on above: Follow Up Start: 04-16-2025 End: 04-16-2025 Patient encounter procedure April Myers APRN.LEAD MAINTENANCE TECHNICIAN Work Phone: [facility] Comment on above: S/P repair of paraes ophageal hernia (Primary Dx) Start: 04-16-2025 End: 04-16-2025 ambulatory APRIL MYERS Facility:[facility] Start: 04-08-2025 End: 04-08-2025 Telephone encounter Mitra Saavedra MD Work Phone: [facility] Comment on above: Hospital Follow Up Start: 04-02-2025 End: 04-04-2025 ambulatory MITRA SAAVEDRA Facility:[facility] Start: 03-26-2025 End: 03-26-2025 ambulatory MITRA SAAVEDRA Facility:[facility] Start: 03-07-2025 End: 03-07-2025 Patient encounter procedure Mitra Saavedra MD Work Phone: [facility] Comment on above: Gastroesophageal ref lux disease without esophagitis (Primary Dx); Paraesophageal hernia; Hypertension, unspecified type; Class 1 obesity with serious comorbidity and body mass index (BMI) of 31.0 to 31.9 in adult, unspecified obesity type Start: 03-07-2025 End: 03-07-2025 ambulatory MITRA SAAVEDRA Facility:[facility] Start: 02-22-2025 End: 02-22-[address] Julisa Cheung MD -[facility] Start: 02-22-2025 End: 02-22-[address] Julisa Cheung MD Work Phone: [facility] Work Phone: Start: 02-04-2025 End: 02-04-2025 Telephone encounter Mitra Saavedra MD Work Phone: [facility] Comment on above: Appointment Start: 02-01-2025 End: 02-01-2025 Telephone encounter Mitra Saavedra MD Work Phone: [facility] Comment on above: Appointment Start: 12-25-2024 End: 12-25-2024 Emergency department patient visit Dr. Uche Kuhn MD -Emergency Department Work Phone: Start: 12-06-2024 End: 12-06-2024 Patient encounter procedure Mitra Saavedra MD Work Phone: [facility] Comment on above: Gastroesophageal [...] Start: 12-06-2024 End: 12-06-2024 ambulatory MITRA SAAVEDRA Facility:[facility] Start: 10-12-2024 ambulatory MITRA SAAVEDRA Facility: [facility] Start: 10-12-2024 End: 10-12-2024 Subsequent hospital visit by physician Mitra Saavedra MD Work Phone: [facility] Comment on above: Paraesophageal herni a [K44.9], Hypertension, unspecified type [I10] Gastroesophageal ref lux disease, unspecified whether esophagitis present [K21.9] Start: 09-28-2024 Preprocedural examin ation leander Peoples MD Work Phone: [facility] Work Phone: Start: 09-28-2024 [facility] other [facility]cedural [facility] Start: 09-28-2024 ambulatory H WON PEOPLES Facilit y:[facility] Start: 09-28-2024 End: 09-28-2024 Subsequent hospital visit by physician Steven Peoples MD Work Phone: [facility] Comment on above: Screening for colon cancer [Z12.11] Start: 08-30-2024 ambulatory [facility] Facility: [facility] Start: 08-30-2024 End: 08-30-2024 Subsequent hospital visit by physician Gi/Gu [facility] Comment on above: Gastroesophageal ref lux disease, unspecified whether esophagitis present [K21.9] Start: 08-20-2024 End: 08-20-2024 Orders Only Steven Peoples MD Work Phone: [facility] Comment on above: Screening for colon cancer (Primary Dx) Start: 08-17-2024 End: 08-17-2024 Telephone encounter Steven Peoples MD Work Phone: [facility] Start: 08-08-2024 End: 08-08-2024 Telephone encounter Steven Peoples MD Work Phone: [facility] Start: 08-02-2024 End: 08-02-2024 Telephone encounter Mitra Saavedra MD Work Phone: [facility] Comment on above: Appointment (EGD/MAN O) Start: 08-02-2024 End: 08-02-2024 Patient encounter procedure Mitra Saavedra MD Work Phone: [facility] Comment on above: Gastroesophageal ref lux disease, unspecified whether esophagitis present (Primary Dx); Paraesophageal hernia; Hypertension, unspecified type; Screening for colon cancer; Class 1 obesity with serious comorbidity and body mass index (BMI) of 31.0 to 31.9 in adult, unspecified obesity type Start: 08-02-2024 End: 08-02-2024 ambulatory MITRA SAAVEDRA Facility:[facility] Start: 05-25-2024 Telephone encounter Mitra lea MD Work Phone: [facility] Comment on above: Appointment Start: 10-05-2023 End: 10-05-2023 ambulatory [facility] Work Phone: Start: 10-05-2023 End: 10-05-2023 Patient encounter procedure [facility] Start: 08-11-2023 End: 08-11-2023 Patient encounter procedure [facility] Start: 12-03-2022 End: 12-03-2022 Emergency department patient visit [facility]-Emergency Department Start: 04-15-2022 End: 04-15-2022 [facility] Start: 04-02-2022 End: 04-02-2022 Patient encounter procedure Paul Murcia DO Work Phone: [facility] Comment on above: Left leg pain (Prima ry Dx) Start: 04-02-2022 End: 04-02-2022 Subsequent hospital visit by physician Xr [facility] Comment on above: Spondylolisthesis, l umbar region [M43.16] Start: 01-25-2022 End: 01-25-2022 Patient encounter procedure [facility] Start: 11-19-2021 End: 11-19-2021 [facility] Start: 03-16-2021 End: 03-16-2021 Orders Only Vj Sandhu MD Work Phone: [facility] Comment on above: Spondylolisthesis of lumbar region (Primary Dx) Start: 03-03-2021 End: 03-03-2021 Orders Only Adri Kuhn MA [facility] Comment on above: Blood in stool (Prim jne Dx); Paraesophageal hernia; Gastroesophageal reflux disease, unspecified whether esophagitis present Paraesophageal herni a (Primary Dx); Gastroesophageal reflux disease, unspecified whether esophagitis present; Blood in stool; Class 1 obesity due to excess calories with serious comorbidity and body mass index (BMI) of 33.0 to 33.9 in adult; Nausea Patient Question Start: 02-10-2021 End: 02-10-2021 Patient encounter procedure Vj Sandhu Work Phone: [facility] Comment on above: Spondylolisthesis of lumbar region (Primary Dx) Start: 09-26-2020 End: 09-26-2020 Telephone encounter Johnnie Mosleywaldo Work Phone: [facility] Comment on above: Procedure Follow Up Start: 09-25-2020 End: 09-25-2020 Telephone encounter Johnnie López Work Phone: [facility] Comment on above: Patient Question Start: 09-24-2020 End: 09-24-2020 Patient encounter procedure Johnnie Vanceantony Work Phone: [facility] Comment on above: Procedure (Left L4, L5 Transforaminal VERNON) Start: 09-18-2020 End: 09-18-2020 Refill Johnnie Vanceantony Work Phone: [facility] Comment on above: Refill Request Start: 08-26-2020 End: 08-26-2020 Letter encounter Johnnie Mosleywaldo Work Phone: [facility] Start: 08-26-2020 End: 08-26-2020 Telephone encounter Magda Gomez Work Phone: [facility] Comment on above: Anticoagulation Start: 07-28-2020 End: 07-28-2020 Telephone encounter Yulisa Key (Aprn Cnp) Work Phone: [facility] Comment on above: Patient Question Start: 07-23-2020 End: 07-23-2020 Patient encounter procedure Vj Smithgayatri Edson Work Phone: [facility] Comment on above: Spondylolisthesis of lumbar region (Primary Dx) Start: 07-04-2020 End: 07-04-2020 Patient encounter procedure Vj Sandhu Work Phone: [facility] Comment on above: Lumbar spondylosis ( Primary Dx); Obesity, Class I, BMI 30-34.9 Start: 01-21-2019 Patient encounter procedure Facility:[facility] Start: 01-21-2019 End: 01-21-2019 Emergency department patient visit Hermann Hillman Facility:[facility] Procedures Date Procedure Procedure Detail Performing Clinician Start: 05-01-2025 Plain x-ray of hand Dr. Julisa Cheung MD Work Phone: Start: 10-12-2024 Esophagogastroduodenoscopy transoral diagnostic Mitra Saavedra [...] RSV Vaccine (1 - 1-dose 75+ series) [facility] Start: 01-31-2034 Urine microalbumin profile DTaP,Tdap,Td Vaccine (3 - Td or Tdap) [facility] Start: 04-04-2028 Diabetes Screening Diabetes Screening [facility] Start: 04-16-2026 zzBP Controlled (<130/80) (Retired) zzBP Controlled (<130/80) (Retired) [facility] Start: 09-28-2025 Screening for malignant neoplasm of colon [facility] Start: 08-01-2025 End: 08-01-2025 Patient encounter procedure 08/01/2025 8:00 AM EDT Office Visit [facility] [address] [place], [place] [phone] Mitra Saavedra MD 1 [facility] [address] [place] [address] HBC-3mo P/O-Rosenda revision 04/02/25-[facility] Comment on above: HBC-3mo P/O-Rosenda revision 04/02/25-[facility] Start: 07-08-2025 Influenza vaccination [facility] Start: 05-01-2025 [facility] Start: 04-17-2025 End: 04-17-2025 Patient encounter procedure 04/17/2025 9:00 AM EDT Office Visit [facility] [address] [place] [address] Mitra Saavedra MD [address] [id number] HBC-2 Week P/O-Rosenda revision 04/02/25-[facility] Comment on above: HBC-2 Week P/O-Rosenda revision 04/02/25-[facility] Start: 04-16-2025 End: 04-16-2025 Patient encounter procedure 04/16/2025 11:00 AM EDT Office Visit [facility] [address] [place] [address] April Myers, EMT DRIVER.LEAD MAINTENANCE TECHNICIAN [address] [place], [place] [phone] HBC-2 Week P/O-Rosenda revision 04/02/25-[facility] Comment on above: HBC-2 Week P/O-Rosenda revision 04/02/25-[facility] Start: 04-10-2025 End: 04-10-2025 Patient encounter procedure 04/10/2025 1:30 PM EDT Office Visit [facility] [address] [place] [address] Mitra Saavedra MD 1 [facility] [address] [place], [place] [phone] HBC-2 Week P/O-Rosenda revision 04/02/25-Keri [facility] Comment on above: HBC-2 Week P/O-Rosenda revision 04/02/25-Génesis whelan Start: 04-02-2025 End: 04-02-2025 Admission [facility] Comment on above: LAPAROSCOPIC RPR PARAESOHAGEAL HERNIA W/ FUNDOPLASTY W/ MESH--Laparoscopic, possible open, paraesophageal hernia repair with Rosenda fundoplicatio- revision rosenda takedown Start: 04-02-2025 End: 04-02-2025 Esophagogastroduodenoscopy transoral diagnostic [facility] Start: 04-02-2025 End: 04-02-2025 Laps rpr paraesphgl hrna incl fundplsty w/mesh [place] Start: 04-02-2025 Subsequent hospital visit by physician [facility] Comment on above: Gastroesophageal reflux disease without esophagitis [K21.9], Paraesophageal hernia [K44.9], Hypertension, unspecified type [I10], Body mass index 30.0-30.9, adult [Z68.30] Start: 04-02-2025 End: 04-02-2025 Transfusion blood/blood components [place] [facility] Start: 03-26-2025 End: 03-26-2025 ambulatory 03/26/2025 10:00 AM EDT PAT Pre Surgical Testing [address] [place] [address] 1. LAPAROSCOPIC RPR PARAESOHAGEAL HERNIA W/ FUNDOPLASTY [...] disease without esophagitis Expected: 03/07/2025, Expires: 06/06/2025 [facility] Comment on above: Expected: 03/07/2025, Expires: Start: 03-07-2025 End: 06-06-2025 CBC W Auto Differential panel - Blood COMPLETE BLOOD COUNT AND DIFFERENTIAL Lab Routine Gastroesophageal reflux disease without esophagitis Expected: 03/07/2025, Expires: 06/06/2025 [facility] Work Phone: Comment on above: Expected: 03/07/2025, Expires: Start: 03-07-2025 End: 03-07-2025 Patient encounter procedure 03/07/2025 8:00 AM EDT Office Visit [facility] [address] [place], [place] [phone] Mitra Saavedra MD [address] [phone] HBC-f/u-final weight check [facility] Comment on above: HBC-f/u-final weight check Start: 12-25-2024 [facility] Start: 12-06-2024 End: 03-07-2025 Basic metabolic 2000 panel - Serum or Plasma BASIC METABOLIC PANEL Lab Routine Gastroesophageal reflux disease without esophagitis Paraesophageal hernia Expected: 12/06/2024, Expires: 03/07/2025 [facility] Comment on above: Expected: 12/06/2024, Expires: Start: 12-06-2024 End: 03-07-2025 CBC W Auto Differential panel - Blood COMPLETE BLOOD COUNT AND DIFFERENTIAL Lab Routine Gastroesophageal reflux disease without esophagitis Paraesophageal hernia Expected: 12/06/2024, Expires: 03/07/2025 [facility] Comment on above: Expected: 12/06/2024, Expires: Start: 10-25-2024 End: 10-25-2024 Patient encounter procedure 10/25/2024 10:00 AM EST Office Visit [facility] [address] [place], [place] [phone] Mitra Saavedra MD [address] [facility] [address] [place] [address] HBC - F/U EGD Mano, UGI [facility] Comment on above: HBC - F/U EGD Mano, UGI Start: 10-12-2024 End: 08-02-2025 EGD DIAGNOSTIC EGD DIAGNOSTIC Endoscopy Routine Gastroesophageal reflux disease, unspecified whether esophagitis present Expected: 10/12/2024, Expires: 08/02/2025 [facility] Comment on above: Expected: 10/12/2024, Expires: Start: 10-12-2024 End: 10-12-2024 Patient encounter procedure 10/12/2024 9:00 AM EST Appointment [facility] [address] [place] [address] [facility] Start: 10-12-2024 End: 10-12-2024 Admission to same day surgery center 10/12/2024 8:00 AM EST - 10/12/2024 9:00 AM EST Surgery [facility] [address] Mitra Saavedra MD 1 [facility] [address] [place] [address] ESOPHAGEAL MANOMETRY [facility] Comment on above: ESOPHAGEAL MANOMETRY Start: 10-12-2024 End: 10-12-2024 Esophageal motility study w/interp&rpt ESOPHAGEAL MANOMETRY Paraesophageal hernia Hypertension, unspecified type 10/12/2024 8:00 AM EST [facility] Start: 10-12-2024 Subsequent hospital visit by physician 10/12/2024 8:00 AM EST Hospital Encounter [facility] [address] [place] [facility] [place] [address] Mitra Saavedra MD 1 [facility] [address] [place], [place] [phone] Paraesophageal hernia [K44.9], Hypertension, unspecified type [I10] [facility] Comment on above: Paraesophageal hernia [K44.9], Hypertens ion, unspecified type [I10] Start: 09-28-2024 End: 08-20-2025 Screening colonoscopy COLONOSCOPY SCREENING Endoscopy Routine Screening for colon cancer Expected: 09/28/2024, Expires: 08/20/2025 [facility] Work Phone: Comment on above: Expected: 09/28/2024, Expires: Start: 09-28-2024 End: 09-28-2024 Patient encounter procedure [facility] Start: 08-30-2024 End: 08-30-2024 Patient encounter procedure 08/30/2024 10:00 AM EDT Appointment [facility] [address] [facility] [place] [place] [address] Gastroesophageal reflux disease, unspecified whether esophagitis present [K21.9] [facility] Comment on above: Gastroesophageal reflux disease, unspeci fied whether esophagitis present [K21.9] Start: 07-09-2024 Urine microalbumin profile DTaP,Tdap,Td Vaccine (2 - Td or Tdap) [facility] Start: 07-08-2024 Covid-19 Vaccine ( season) Covid-19 Vaccine ( season) [facility] Start: 07-08-2024 Influenza [facility] Start: 04-07-2024 DIABETES SCREEN DIABETES SCREEN [facility] Start: 04-07-2024 Diabetes Screening Diabetes Screening [facility] Start: 03-28-2024 Shingrix Vaccine (2 of 2) Shingrix Vaccine (2 of 2) [facility] Start: 11-07-2023 Behavioral Health Screening Behavioral Health Screening [facility] Start: 07-08-2023 Covid-19 Vaccine ( season) Covid-19 Vaccine ( season) [facility] Start: 07-08-2022 Influenza vaccination INFLUENZA (Season Ended) [facility] Start: 2021 RSV Vaccine (1 - 1-dose 60+ series) RSV Vaccine (1 - 1-dose 60+ series) [facility] Start: 2021 RSV Vaccine (1 - Risk 60-74 years 1-dose series) RSV Vaccine (1 - Risk 60-74 years 1-dose series) [facility] Start: 07-30-2021 COVID-19 VACCINE (3 - Booster for Moderna series) COVID-19 VACCINE (3 - Booster for Moderna series) [facility] Start: 07-08-2021 Influenza vaccination INFLUENZA (Season Ended) [facility] Start: 03-16-2021 End: 03-16-2022 SARS-CoV-2 (COVID-19) RNA [Presence] in Respiratory specimen by HOWIE with probe detection PRE-PROCEDURE & PRE-OPERATIVE COVID Microbiology Routine Spondylolisthesis of lumbar region Expected: 03/16/2021, Expires: 03/16/2022 [facility] Comment on above: Expected: 03/16/2021, Expires: 2 Start: 03-03-2021 End: 03-03-2022 SARS-CoV-2 (COVID-19) RNA [Presence] in Respiratory specimen by HOWIE with probe detection [facility] Comment on above: Expected: 03/03/2021, Expires: 2 Start: 02-27-2021 COVID-19 VACCINE (2 - Moderna 2-dose series) COVID-19 VACCINE (2 - Moderna 2-dose series) [facility] Start: 11-15-2020 Adult depression screening assessment DEPRESSION SCREENING [facility] Start: 07-08-2020 Influenza vaccination INFLUENZA (#1) [facility] Start: 08-30-2018 DIABETES SCREEN DIABETES SCREEN [facility] Start: 05-25-2016 COLORECTAL CANCER SCREENING COLORECTAL CANCER SCREENING [facility] Start: 05-25-2016 FECAL OCCULT BLOOD FECAL OCCULT BLOOD [facility] Start: 05-25-2016 Screening for malignant neoplasm of colon [facility] Start: 2011 COLORECTAL CANCER SCREENING,SEE MODIFIER COLORECTAL CANCER SCREENING,SEE MODIFIER [facility] Start: 2011 Pneumococcal Vaccine: 50+ (1 of 1 - PCV) Pneumococcal Vaccine: 50+ (1 of 1 - PCV) [facility] Start: 2011 Screening for malignant neoplasm of colon [facility] Start: 2011 SHINGRIX VACCINE (1 of 2) SHINGRIX VACCINE (1 of 2) [facility] Start: 2011 Tuberculosis screening COLORECTAL CANCER SCREENING,SEE MODIFIER [facility] Start: 2006 COLOGUARD (FIT-DNA) COLOGUARD (FIT-DNA) [facility] Start: 2006 Colonoscopy COLONOSCOPY [facility] Start: [address] COLONOGRAPHY [facility] Start: 2006 Lipid panel Lipid Screening [facility] Start: 2006 LIPID SCREEN LIPID SCREEN [facility] Start: 2006 Screening for malignant neoplasm of colon [facility] Start: 2006 SIGMOIDOSCOPY SIGMOIDOSCOPY [facility] Start: 2001 Mammography MAMMOGRAM [facility] Start: 2001 Screening for malignant neoplasm of breast Mammogram Screening [facility] Start: 1991 HPV TESTING HPV TESTING [facility] Start: 1982 PAP TESTING PAP TESTING [facility] Start: 1982 Screening for malignant neoplasm of cervix Cervical Cancer Screening [facility] Start: 1980 Urine microalbumin profile DTAP,TDAP,TD (1 - Tdap) [facility] Start: 1979 ANNUAL PCP TEAM CHRONIC DISEASE VISIT ANNUAL PCP TEAM CHRONIC DISEASE VISIT [facility] Start: 1979 Anxiety Screening Anxiety Screening [facility] Start: 1979 BP CONTROLLED (<130/80) BP CONTROLLED (<130/80) [facility] Start: 1979 Depression Screening Depression Screening [facility] Start: 1979 HEPATITIS C SCREENING [facility] Start: 1979 Hepatitis C screening Hepatitis C Screening [facility] Start: 1979 HIV SCREENING HIV SCREENING [facility] [facility]: [facility] HIV screening HIV Screening [facility] End: 03-16-2022 aPTT in Platelet poor plasma by Coagulation assay ACTIVATED PTT Lab Routine Spondylolisthesis of lumbar region 1 Occurrences starting 03/16/2021 until 03/16/2022 [facility] Comment on above: 1 Occurrences starting 03/16/2021 until 03/16/2022 End: 03-16-2022 Basic metabolic 2000 panel - Serum or Plasma BASIC METABOLIC PNL Lab Routine Spondylolisthesis of lumbar region 1 Occurrences starting 03/16/2021 until 03/16/2022 [facility] Comment on above: 1 Occurrences starting 03/16/2021 until 03/16/2022 End: 03-16-2022 CBC panel - Blood by Automated count CBC Lab Routine Spondylolisthesis of lumbar region 1 Occurrences starting 03/16/2021 until 03/16/2022 [facility] Comment on above: 1 Occurrences starting 03/16/2021 until 03/16/2022 End: 03-03-2022 COLONOSCOPY - DIAGNOSTIC COLONOSCOPY - DIAGNOSTIC Endoscopy Routine Blood in stool 1 Occurrences starting 03/03/2021 until 03/03/2022 [facility] Comment on above: 1 Occurrences starting 03/03/2021 until 03/03/2022 End: 03-16-2022 ECG COMPLETE ECG COMPLETE ECG Routine Spondylolisthesis of lumbar region 1 Occurrences starting 03/16/2021 until 03/16/2022 [facility] Comment on above: 1 Occurrences starting 03/16/2021 until 03/16/2022 End: 12-06-2025 ECG COMPLETE ECG COMPLETE ECG Routine Gastroesophageal reflux disease without esophagitis Paraesophageal hernia 1 Occurrences starting 12/06/2024 until 12/06/2025 [facility] [employer] Work Phone: Comment on above: 1 Occurrences starting 12/06/2024 until 12/06/2025 Esophageal motility study w/interp&rpt ESOPHAGEAL MANOMETRY Paraesophageal hernia Hypertension, unspecified type [place] [facility] End: 03-03-2022 Esophagogastroduodenoscopy transoral diagnostic EGD Endoscopy Routine Paraesophageal hernia Gastroesophageal reflux disease, unspecified whether esophagitis present 1 Occurrences starting 03/03/2021 until 03/03/2022 [facility] Comment on above: 1 Occurrences starting 03/03/2021 until 03/03/2022 End: 08-02-2025 Flexible sigmoidoscopy study COLONOSCOPY DIAGNOSTIC Endoscopy Routine Screening for colon cancer 1 Occurrences starting 08/02/2024 until 08/02/2025 [facility] Comment on above: 1 Occurrences starting 08/02/2024 until 08/02/2025 End: 04-02-2022 Gastric emptying imaging study NM GASTRIC EMPTYING SOLID Radiology Routine Nausea 1 Occurrences starting 03/03/2021 until 04/02/2022 [facility] Comment on above: 1 Occurrences starting 03/03/2021 until 04/02/2022 H&P for surgery H&P FOR SURGERY Procedures Routine Spondylolisthesis of lumbar region Ordered: 03/16/2021 [facility] Comment on above: Ordered: 03/16/2021 End: 08-02-2025 Manometry Study observation Narrative MANOMETRY ESOPHAGEAL Endoscopy Routine Paraesophageal hernia 1 Occurrences starting 08/02/2024 until 08/02/2025 [facility] Comment on above: 1 Occurrences starting 08/02/2024 until 08/02/2025 End: 2021 Mri spinal canal lumbar w/o & w/contr matrl MRI LUMBAR SPINE WO/W IVCON Radiology Routine Lumbar spondylosis 1 Occurrences starting 07/04/2020 until 2021 [facility] Comment on above: 1 Occurrences starting 07/04/2020 until 2021 Njx anes&/strd w/img tfrml edrl lmbr/sac 1 lvl INJ TRANSFORAMINAL EPID ANES/STER LS SINGL Procedures Routine Spinal stenosis of lumbar region without neurogenic claudication Ordered: 09/24/2020 [facility] Comment on above: Ordered: 09/24/2020 Njx anes&/strd w/img tfrml edrl lmbr/sac ea lv INJ TRANSFRAM EPID ANES/STER LS MULTI Procedures Routine Spinal stenosis of lumbar region without neurogenic claudication Ordered: 09/24/2020 [facility] Comment on above: Ordered: 09/24/2020 Patient Education [facility] Work Phone: Patient referral [facility] Work Phone: End: 03-16-2022 PT panel - Platelet poor plasma by Coagulation assay PROTHROMBIN TIME/PT Lab Routine Spondylolisthesis of lumbar region 1 Occurrences starting 03/16/2021 until 03/16/2022 [facility] Comment on above: 1 Occurrences starting 03/16/2021 until 03/16/2022 End: 09-01-2025 RF Gastrointestinal tract upper Views W air contrast PO and W barium contrast PO XR UPPER GI ROUTINE DOUBLE CONTRAST/AIR Radiology Routine Gastroesophageal reflux disease, unspecified whether esophagitis present 1 Occurrences starting 08/02/2024 until 09/01/2025 [facility] Work Phone: Comment on above: 1 Occurrences starting 08/02/2024 until 09/01/2025 SURGICAL PATHOLOGY [facility] Work Phone: Comment on above: Release Upon Ordering for 1 Occurrences starting 10/12/2024, 1 completed End: 03-16-2022 TYPE AND SCREEN,30 DAY TYPE AND SCREEN,30 DAY Blood Bank Routine Spondylolisthesis of lumbar region 1 Occurrences starting 03/16/2021 until 03/16/2022 [facility] Comment on above: 1 Occurrences starting 03/16/2021 until 03/16/2022 [facility] Immunizations Immunization Date Immunization Notes Care Provider Deangelo lanza 08-07-2022 influenza virus vacc ine, unspecified formulation Mitra Saavedra MD Work Phone: [facility] 08-25-2016 influenza virus vacc ine, unspecified formulation Mitra Saavedra MD Work Phone: [facility] Payers Date Payer Category Payer Self-pay [id number] 2021 [employer] Blue [employer] BLUE ACCE PPO [id number] 2020 Unknown [id number] 2019 Unknown 2017 Unknown [id number] 2016 Unknown [id number] 1960 Unknown [id number] 1960 Unknown [id number] Self-pay SELF PAY INSURANCE [id number] Unknown [id number] Unknown [id number] Unknown [id number] Unknown [id number] Unknown [id number] Unknown [id number] Social History Date Type Detail Facility Start: 07-23-2020 End: 08-02-2024 Tobacco smoking status NHIS Former smoker [facility] Start: 07-23-2020 End: 08-02-2024 Tobacco use and exposure Never used [facility] Start: 07-23-2020 End: 03-07-2025 Alcohol intake Current drinker of alcohol (finding) [facility] Start: 1960 Sex Assigned At Not on file [facility] Start: 03-23-2022 End: 04-02-2022 Exposure to SARS-CoV-2 (event) Not sure [facility] Start: 05-14-2002 End: 11-12-2008 History of tobacco use Current smoker [facility] Start: 07-24-2021 End: 12-03-2022 Tobacco smoking status [facility] Unknown if ever smoked [facility] Start: 1960 Sex Assigned At Female [facility] Start: 05-14-2002 End: 11-12-2008 History of tobacco use Cigarette Smoker [facility] Start: 04-02-2022 End: 02-07-2024 Alcohol intake [facility] Start: 04-07-2021 History SDOH Alcohol Comment socially-once weekly [facility] Start: 04-24-2021 End: 08-02-2024 Tobacco Comment 1 pack per week [facility] Start: 04-02-2022 End: 02-07-2024 Tobacco use panel [facility] Adult Depression Screening Assessment 0 [facility] Start: 12-25-2024 Tobacco smoking stat us NHIS Never smoked tobacco (finding) [facility] Start: 02-27-2025 Sex Female (finding) [facility] Start: 04-02-2025 End: 05-28-2025 Alcoholic beverage intake Ex-drinker (finding) [facility] Has the [employer], [employer], oil, or water company threatened to shut off services in your home in past 12Mo No [facility] (I/We) worried keerthi er (my/our) food would run out before (I/we) got money to buy more. Never true [facility] Medical Equipment Procedure Code Equipment Code Equipment Origin al Text Equipment Identifier Dates Substitute Maste rgraft Calcium Phosphate Collagen Bone Graft Putty Void - [id number] Start: 05-07-2021 Dane Viper 2 Lord otic Titanium 40mm Spinal Mis [id number] Start: 05-07-2021 Dane Viper 2 Prelordotic Titanium 35mm Spinal Mis [id number] Start: 05-07-2021 Dev Bul Par 9x12 x23 - [id number] Start: 05-07-2021 Set Titanium Scr ew 1 Inner Mis Spine [id number] Start: 05-07-2021 Viper Prime Cfx Fen X-Tab Polyaxial Screw 5.5mm X 6mm X 55mm [id number] Start: 05-07-2021 Viper Prime Cfx Fen X-Tab Polyaxial Screw 5.5mm X 6mm X 45mm [id number] Start: 05-07-2021 Mesh Bio-A Synth etic 10x7cm Surgical Reinforcement Hernia Repair - [id number] Start: 04-02-2025 Functional Status Date Assessment Result Facility 04-04-2025 Are you deaf, or do you have serious difficulty hearing No 04/04/2025 4:06 PM Gregory Ponce RN No [facility] 04-04-2025 Are you blind, or do you have serious difficulty seeing, even when wearing glasses No 04/04/2025 4:06 PM Gregory Ponce RN No [facility] 04-04-2025 Do you have serious difficulty walking or climbing stairs No 04/04/2025 4:06 PM Gregory Ponec RN No [facility] 04-04-2025 Do you have difficul ty dressing or bathing No 04/04/2025 4:06 PM Gregory Ponce RN No [facility] 04-04-2025 Because of a physica l, mental, or emotional condition, do you have difficulty doing errands alone such as visiting a physician's office or shopping No 04/04/2025 4:06 PM Gregory Ponce RN No [facility] 05-09-2021 Are you deaf, or do you have serious difficulty hearing No 05/09/2021 11:40 AM Candis Javier RN No [facility] 05-09-2021 Are you blind, or do you have serious difficulty seeing, even when wearing glasses No 05/09/2021 11:40 AM Candis Javier RN No [facility] 05-09-2021 Do you have serious difficulty walking or climbing stairs No 05/09/2021 11:40 AM Candis Javier RN No [facility] 05-09-2021 Do you have difficul ty dressing or bathing No 05/09/2021 11:40 AM Candis Javier RN No [facility] 05-09-2021 Because of a physica l, mental, or emotional condition, do you have difficulty doing errands alone such as visiting a physician's office or shopping No 05/09/2021 11:40 AM Candis Javier RN No [facility] Mental Status Date Assessment Result Facility 04-04-2025 Because of a physica l, mental, or emotional condition, do you have serious difficulty concentrating, remembering, or making decisions No 04/04/2025 4:06 PM Gregory Ponce RN No [facility] 05-09-2021 Because of a physica l, mental, or emotional condition, do you have serious difficulty concentrating, remembering, or making decisions No 05/09/2021 11:40 AM Candis Javier RN No [facility] Clinical Notes 03-03-2021 to 05-28-2025 Telephone Encounter - Steven Jurado RN - 05/28/2025 9:48 AM EDTTelephone Encounter - Steven Jurado RN - 05/28/2025 9:48 AM EDTTelephone Encounter - Steven Jurado RN - 04/29/2025 3:14 PM EDT Note Date & Type Note Facility 05-28-2025 Telephone encounter Note Patient called and requested a RTW letter be faxed to her employer. Letter completed with RTW date of 06/03/25, 8 weeks post op so patient will not have any restrictions regarding the repaired of the recurrent hiatal hernia, however, she will remain off work due to falling and breaking a bone in her hand. Patient will follow up with orthopedics on 06/14/25. Of note patient denies heartburn, dysphagia and regurgitation. Patient's current GERD QOL score =0. Patient has weaned off PPIs. Steven Jurado RN [facility] 05-28-2025 Miscellaneous Notes Patient called and requested a RTW letter be faxed to her employer. Letter completed with RTW date of 06/03/25, 8 weeks post op so patient will not have any restrictions regarding the repaired of the recurrent hiatal hernia, however, she will remain off work due to falling and breaking a bone in her hand. Patient will follow up with orthopedics on 06/14/25. Of note patient denies heartburn, dysphagia and regurgitation. Patient's current GERD QOL score =0. Patient has weaned off PPIs. Steven Jurado RN documented in this encounter [facility] 05-01-2025 Radiology Diagnostic study note [facility] Imaging Services [address], [place] [address] Hand Min 3 Views MR#: [id number] Acct: [id number] Name: FRANCIA GAMA Rep #: [id number] : 1960 F 64 From: Saúl Coy MD PCP: Dr. Julisa Cheung MD Status: REG ER Study:Hand Min 3 Views Date of Exam: Exam# [id number] Ordering Dr: Barney Dockery DO PROCEDURE: HAND MIN 3 VIEWS 05/01/2025 REASON FOR EXAM: INJURY/PAIN TECHNIQUE: HAND MIN 3 VIEWS COMPARISON: 12/03/2022. FINDINGS: Acute displaced angulated fracture of the neck of the 2nd metacarpal bone. Narrowed radiocarpal articulation. Narrowing of the radioulnar joint. Postsurgical changes status post multiple carpal bone fusion. Normal carpal articulations Degenerative changes of the carpometacarpal articulation of the thumb. Normal second through fifth carpometacarpal joints. 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 Normal interphalangeal joint of the thumb. Normal proximal and distal phalanges of the thumb. Normal metacarpophalangeal joints of the second through fifth fingers. Normal proximal and distal interphalangeal joints of the second through fifth fingers. Normal phalanges of the second through fifth fingers. RAD/Hand Min 3 Views IMPRESSION: Acute displaced angulated fracture of the neck of the 2nd metacarpal bone. [facility] CC: Dr. Julisa Cheung MD; Dr. Barney Dockery DO ~ Drier Belt Conveyor: Signed [facility] 04-29-2025 Telephone encounter Note Patient returned my [...] phone isn't ringing and going straight to [employer]. Steven Jurado RN [facility] 04-29-2025 Miscellaneous Notes Patient returned my call. [...] Ensure Max, soft egg Lunch: yogurt Dinner: /2 ear corn on cob, chicken, 1/2 baked [...] phone isn't ringing and going straight to [employer]. Steven Jurado RN This is my 3rd call/message to patient to discuss diet advancement s/p re-do Rosenda procedure. I also sent patient a MyChart message asking for a return call. Steven Jurado RN documented in this encounter [facility] 04-29-2025 Telephone encounter Note This is my 3rd call/message to patient to discuss diet advancement s/p re-do Rosenda procedure. I also sent patient a MyChart message asking for a return call. Steven Jurado RN [facility] 04-18-2025 Telephone encounter Note I called patient yesterday and again today and left messages asking for a return call so I can review patient's diet advancement with her. I left my contact information. Steven Jurado RN [facility] 04-18-2025 Miscellaneous Notes I called patient yesterday and again today and left messages asking for a return call so I can review patient's diet advancement with her. I left my contact information. Steven Jurado RN documented in this encounter [facility] 04-16-2025 Instructions April Myers APRN.CNP - 04/16/2025 11:04 AM EDT documented in this encounter [facility] 04-16-2025 Note HNO ID: [id number] Author: APRIL MYERS APRN.LEAD MAINTENANCE TECHNICIAN Service: ? Author Type: Nurse Practitioner Type: [...] with surgeon in 3 months April Myers APRN.[facility] 04-16-2025 History of Present illness Narrative [facility]INIC FOLLOW UP [...] with surgeon in 3 months April Myers APRN.LEAD MAINTENANCE TECHNICIAN documented in this encounter [facility] 04-08-2025 Telephone encounter Note Patient's daughter called [...] me for the call. Steven Jurado RN [facility] 04-08-2025 Miscellaneous Notes Patient's daughter called me [...] Steven Jurado RN documented in this encounter [facility] 04-08-2025 Telephone encounter Note I called patient on Thursday 04/05 and again today. I left a message asking for a return call with my contact information. I also left a message with patient's daughter, Maria L. Both voicemail's were full of static and hard to understand. Steven Jurado RN [facility] 04-04-2025 Note HNO ID: [id number] Author: MITRA SAAVEDRA MD Service: General Surgery [...] questions or concerns Mon-Fri 6a-5p please page [phone]. After 5pm and on Weekends and Holidays, please page [phone]. SUBJECTIVE: Patient doing well this morning. She [...] kg/m? O2 Therapy: Nasal Cannula IANDO: Date 04/03/25699 - 04/04/25 0604/04/25699 - 04/05/25 0659 Shift 6228-7475 2832-9419 1069-4757 24 Hour Total 7728-3795 1996-9587 8949-2892 24 Hour Total INTAKE PO 152 880 8567 PO 220 848 6280 Shift Total 201 632 3708 OUTPUT Urine Urine Not Saved. 1 x [...] 04, 2025 TIME (more content not included)... [facility] 04-03-2025 Note HNO ID: [id number] Author: ARLETTE BRANCH RN Service: Care Management Author Type: Registered Nurse Type: Care Mgt Initial Assessment Filed: 04/03/2025 12:01 Note Text: CARE MANAGEMENT: ASSESSMENT AND DISCHARGE PLAN SERVICE DATE: April 03, 2025 SERVICE TIME: 12:00 PM PCP: Julisa Cheung MD Primary Contact: Extended Emergency Contact Information Primary Emergency Contact: NATANCHRISSIE YANGY Mobile Relation: Daughter Admission Status: Inpatient Insurance Provider: [place] [employer] PPO Discharge Planning requested by: Per Department Practice Potential Transition Plans Home Advance Directives Current Advance Directive: None Supervisor Blueprinting And Photocopy Attempted to Assist with AD Completion: Yes [...] General wellness, Be able to go home [place] of Choice Explained: [place] of [place] Given: No Reason Not Given: [...] DATE: April 03, 2025 TIME: 12:00 PM [facility] 04-03-2025 Note HNO ID: [id number] Author: ORTIZ MCMULLEN DO Service: General Surgery [...] DO PGY-2 April 03, 2025 11:37 AM [facility] 04-03-2025 Note HNO ID: [id number] Author: MITRA SAAVEDRA MD Service: General Surgery [...] questions or concerns Mon-Fri 6a-5p please page [phone]. After 5pm and on Weekends and Holidays, please page [phone]. SUBJECTIVE: Patient seen in the AM. NAOE. [...] 92% O2 Therapy: Room Air IANDO: Date 04/02/25699 - 04/03/25 0659 04/03/25 07 - 04/04/25 0659 Shift 9643-8276 8941-4424 6043-0853 24 Hour Total 0377-5647 2938-8900 0975-9247 24 Hour Total INTAKE IV 2300 2300 [...] Surgery) Service Pag (more content not included)... [facility] 04-02-2025 Note HNO ID: [id number] Author: PHIL MALDONADO MD Service: General Surgery [...] surgery - PGY 1 7:21 PM 04/02/2025 [facility] 04-02-2025 Note HNO ID: [id number] Author: WREO BARAJAS APRN.ANGULAR DEVELOPER Service: Anesthesiology Author Type: Nurse Die Polisher Type: Anesthesia Procedure Notes Filed: 04/02/2025 07:53 Note Text: ANESTHESIOLOGY PROCEDURE NOTE Airway General Information Procedure Start Time/Medication Administration: 04/02/2025 7:24 AM Procedure End Time: 04/02/2025 7:24 AM Patient location during procedure: OR Timeout Performed Pre-procedure: timeout performed Consent Obtained: Yes Patient identity confirmed: arm band Staffing ANGULAR DEVELOPER: Wero Barajas APRN.ANGULAR DEVELOPER Performed by: ANGULAR DEVELOPER Indications and Patient Condition Indications for airway [...] no Airway not difficult SIGNATURE: Wero Barajas APRN.CRNA PATIENT NAME: Francia Gama DATE: April 02, 2025 TIME: 7:52 AM CSN: [id number] [facility] 03-07-2025 Note HNO ID: [id number] Author: STEVEN JURADO RN Service: ? Author [...] questions prior to surgery. Steven Jurado RN [facility] 03-07-2025 History of Present illness Narrative Patient given folder with written information about laparoscopic Rosenda fundoplication and hiatal hernia repair, including the pre-op instructions, what to expect in the hospital, pre- and post-op diet and discharge instructions. I verbally discussed and reviewed all the information with the patient. All of patient's questions were answered. Patient has my contact information if she has questions prior to surgery. Steven Jruado RN SURGICAL SERVICES HISTORY AND PHYSICAL EXAMINATION [...] UGI (01/30/21): moderate-sized hiatal hernia. - GES (59655): WNL - EGD: reflux esophagitis, duodenitis, disrupted [...] use of other drugs. 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 She lives with her daughter Maria L (works at [employer]) PSHx: lumbar laminectomy (L4/5), lap CCx, [...] embolism, pneumonia, myocardial infarction. We also discussed longwall foreman risks of recurrence and the importance of [...] 07, 2025 TIME: 8:38 AM PAGER/CONTACT #: [phone] Patient states she still has a lot of nausea. Magda Rebollar MA documented in this encounter [facility] 03-07-2025 Note HNO ID: [id number] Author: MITRA SAAVEDRA MD Service: ? Author [...] UGI (01/30/21): moderate-sized hiatal hernia. - GES (75046): WNL - EGD: reflux esophagitis, duodenitis, disrupted [...] use of other drugs. She works at [employer]. She lives with her daughter Maria L (works at [employer]) PSHx: lumbar laminectomy (L4/5), lap CCx, paraesophageal [...] Giles NEAL SURG CHOLECYSTECTOMY W/CHOLANGIOGRAPHY 09/10/2008 nORMAL ioc LUMBAR [...] tablet Take 1 (more content not included)... [facility] 03-07-2025 Note HNO ID: [id number] Author: MAGDA REBOLLAR MA Service: ? Author Type: Security Public Safety Officer Type: Progress Notes Filed: 03/07/2025 08:56 Note Text: Patient states she still has a lot of nausea. Magda Rebollar MA [facility] 02-04-2025 Telephone encounter Note Lvm and sent MCM to reschedule 04/17 ac Saavedra is out of office 04/16-04/26. [facility] 02-04-2025 Miscellaneous Notes Lvm and sent MCM to reschedule 04/17 appcorky Saavedra is out of office 04/16-04/26. documented in this encounter [facility] 02-01-2025 Telephone encounter Note Lvm and sent MCM to reschedule 04/17 appcorky - Keri is out of office . [facility] 02-01-2025 Miscellaneous Notes Lvm and sent MCM to reschedule 04/17 appcorky Saavedra is out of office 04/16-04/26. documented in this encounter [facility] 12-06-2024 Note HNO ID: [id number] Author: ?, ?, ? Service: ? Author Type: ? Type: Progress Notes Filed: 12/06/2024 10:15 Note Text: lap paraesophageal hernia repair with Rosenda. she wants the surgery at the end of March. please schedule on a Tuesday as I may be out some Mondays in March [facility] 12-06-2024 History of Present illness Narrative lap paraesophageal hernia repair with Rosenda. she wants the surgery at the end of March. please schedule on a Tuesday as I may be out some Mondays in March documented in this encounter [facility] 12-06-2024 Note HNO ID: [id number] Author: MITRA SAAVEDRA MD Service: ? Author [...] UGI (01/30/21): moderate-sized hiatal hernia. - GES (76912): WNL - EGD: reflux esophagitis, duodenitis, disrupted fundoplication with recurrent hiatal hernia - Pathology: Benign gastric mucosa with features of very mild reactive gastropathy. Duodenum, biopsy - No pathologic abnormalities. Esophagus, biopsy - Benign squamous mucosa showing no pathologic abnormalities. Per my last clinic note in 07/2024: she reports that two months ago she was evaluated at [facility] due to abdominal pain. She [...] use of other drugs. She works at [employer]. She lives with her daughter Maria L (works at [employer]) PSHx: lumbar laminectomy (L4/5), lap CCx, paraesophageal [...] NEAL SURG CHOLECYSTECTOMY (more content not included)... [facility] 12-06-2024 History of Present illness Narrative SURGICAL SERVICES HISTORY AND PHYSICAL [...] UGI (01/30/21): moderate-sized hiatal hernia. - GES (31483): WNL - EGD: reflux esophagitis, duodenitis, disrupted fundoplication with recurrent hiatal hernia - Pathology: Benign gastric mucosa with features of very mild reactive gastropathy. Duodenum, biopsy - No pathologic abnormalities. Esophagus, biopsy - Benign squamous mucosa showing no pathologic abnormalities. Per my last clinic note in 07/2024: she reports that two months ago she was evaluated at [facility] due to abdominal pain. She [...] use of other drugs. She works at [employer]. She lives with her daughter Maria L (works at [employer]) PSHx: lumbar laminectomy (L4/5), lap CCx, paraesophageal [...] LAPSergio SURG CHOLECYSTECTOMY W/CHOLANGIOGRAPHY 09/10/2008 nORMAL ioc LUMBAR [...] embolism, pneumonia, myocardial infarction. We also discussed halfway risks of recurrence and the importance of [...] 06, 2024 TIME: 8:11 AM PAGER/CONTACT #: [id number] documented in this encounter [facility] 10-12-2024 Nurse Note The patient was brought [...] congestion and minimal nose bleeding following procedure. [facility] 10-12-2024 Nurse Note The patient was brought [...] bleeding following procedure. documented in this encounter [facility] 09-28-2024 History and physical note HISTORY AND [...] Giles NEAL SURG CHOLECYSTECTOMY W/CHOLANGIOGRAPHY 09/10/2008 nORMAL ioc LUMBAR [...] which included preparing to see the patient, nsrj-ho-nhlj patient care, completing clinical documentation, obtaining and/or reviewing separately obtained history, performing a medically appropriate examination, and counseling and educating the patient/family/caregiver. Planned Anesthetic: MAC Instructions Given to Patient: Patient given verbal preop instructions and voices comprehension and compliance. SIGNATURE: aMyank Corrales APRN.CNP PATIENT NAME: Francia Gama DATE: September 28, 2024 TIME: 8:51 AM PAGER/CONTACT #: [facility] 09-28-2024 History and physical note HISTORY AND [...] Giles NEAL SURG CHOLECYSTECTOMY W/CHOLANGIOGRAPHY 09/10/2008 nORMAL ioc LUMBAR [...] which included preparing to see the patient, wmrv-gg-xxby patient care, completing clinical documentation, obtaining and/or reviewing separately obtained history, performing a medically appropriate examination, and counseling and educating the patient/family/caregiver. Planned Anesthetic: MAC Instructions Given to Patient: Patient given verbal preop instructions and voices comprehension and compliance. SIGNATURE: Mayank Corrales APRN.CNP PATIENT NAME: Francia Gama DATE: September 28, 2024 TIME: 8:51 AM PAGER/CONTACT #: documented in this encounter [facility] 09-28-2024 Surgery Surgical operation note BRIEF OPERATIVE / PROCEDURE NOTE LOG ID: [id number] SURGERY/PROCEDURE DATE: 09/28/2024 INCISION/PROCEDURE START TIME: 9:11 AM INCISION CLOSE/PROCEDURE END TIME: 9:42 AM SURGEON(S)/PROCEDURALIST(S) AND TRADE MARK EXAMINER(S): Steven Peoples MD - Proceduralist No Additional [...] DATE: September 28, 2024 TIME: 9:46 AM [facility] Work Phone: 09-28-2024 Surgical operation note BRIEF OPERATIVE / PROCEDURE NOTE LOG ID: [id number] SURGERY/PROCEDURE DATE: 09/28/2024 INCISION/PROCEDURE START TIME: 9:11 AM INCISION CLOSE/PROCEDURE END TIME: 9:42 AM SURGEON(S)/PROCEDURALIST(S) AND TRADE MARK EXAMINER(S): Steven Peoples MD - Proceduralist No Additional [...] TIME: 9:46 AM documented in this encounter [facility] 08-30-2024 History of Present illness Narrative Radiology Service Progress Note PATIENT [...] PATIENT PRESENTS WITH AN IMPLANTABLE OR ATTACHED SAMPLE DISTRIBUTOR: No RADIOLOGY DEPARTMENT: General X-ray: Exam(s) Completed: GI/ Procedure(s): Upper GI with barium contrast PERIPHERAL IV DATA: Not applicable SIGNED BY: SHAQUILLE Portillo) August 30, 2024 9:40 AM documented in this encounter [facility] 08-30-2024 Note HNO ID: [id number] Author: SYLVIA WILSON RT (R) Service: Radiology [...] PATIENT PRESENTS WITH AN IMPLANTABLE OR ATTACHED SAMPLE DISTRIBUTOR: No RADIOLOGY DEPARTMENT: General X-ray: Exam(s) Completed: GI/ Procedure(s): Upper GI with barium contrast PERIPHERAL IV DATA: Not applicable SIGNED BY: Sylvia Wilson, RT(R) August 30, 2024 9:40 AM [facility] 08-17-2024 Telephone encounter Note Lm for return call to schedule procedure 08/31/[address] Awender. Deann Santos August 17, 2024 9:55 AM [facility] 08-17-2024 Miscellaneous Notes Lm for return call to schedule procedure 08/31/[address] Awender. Deann Santos August 17, 2024 9:55 AM documented in this encounter [facility] 08-08-2024 Telephone encounter Note Lm to schedule colonoscopy with Dr. Awender. Deann Santos August 08, 2024 3:53 PM [facility] 08-08-2024 Miscellaneous Notes Lm to schedule colonoscopy with Dr. Awender. Deann Santos August 08, 2024 3:53 PM documented in this encounter [facility] 08-02-2024 Telephone encounter Note Manometry scheduled for 10/12/2024 at 8am followed by EGD at 900. Prep/instructions given to patient at checkout. Kelsey Cobb LPN [facility] 08-02-2024 Note Addended by: KELSEY COBB on: 08/02/2024 02:30 PM Modules accepted: Orders [facility] 08-02-2024 Miscellaneous Notes Addended by: KELSEY COBB on: 08/02/2024 02:30 PM Modules accepted: Orders documented in this encounter [facility] 08-02-2024 Miscellaneous Notes Manometry scheduled for 10/12/2024 at 8am followed by EGD at 900. Prep/instructions given to patient at checkout. Kelsey Cobb LPN documented in this encounter [facility] 08-02-2024 Instructions Mitra Saavedra MD - 08/02/2024 [...] am on dialysis? A: Please consult your pattern wheel maker prior to scheduling to get instructions pertinent to you. In general, dialysis patients take the Cloudikely bowel prep and have the procedure same [...] inadequate prep quality. documented in this encounter [facility] 08-02-2024 Note HNO ID: [id number] Author: MITRA SAAVEDRA MD Service: ? Author [...] two months ago she was evaluated at [facility] due to abdominal pain. She [...] use of other drugs. 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 She lives with her daughter Maria L (works at [employer]) PSHx: lumbar laminectomy (L4/5), lap CCx, [...] Giles NEAL SURG CHOLECYSTECTOMY W/CHOLANGIOGRAPHY 09/10/2008 nORMAL ioc TOTAL [...] Current packs/day: 0.00 (more content not included)... [facility] 08-02-2024 History of Present illness Narrative SURGICAL SERVICES HISTORY AND PHYSICAL [...] two months ago she was evaluated at [facility] due to abdominal pain. She [...] use of other drugs. 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 She lives with her daughter Maria L (works at [employer]) PSHx: lumbar laminectomy (L4/5), lap CCx, paraesophageal [...] - Will obtain CT scan images from [facility] - XR UPPER GI ROUTINE DOUBLE CONTRAST/AIR [...] 02, 2024 TIME: 11:44 AM PAGER/CONTACT #: [phone] documented in this encounter [facility] 05-25-2024 Telephone encounter Note VM received - patient requested to cancel appointment due to transportation issues - appointment cancelled. LVM for patient to reschedule appointment - requested patient call back to reschedule appointment. [employer] message sent to patient. [facility] 05-25-2024 Miscellaneous Notes VM received - patient requested to cancel appointment due to transportation issues - appointment cancelled. LVM for patient to reschedule appointment - requested patient call back to reschedule appointment. [employer] message sent to patient. documented in this encounter [facility] 12-03-2022 Discharge summary Note Date/Time December 03, 2022 9:24pm [facility] Medical Records Department [address] [place] [address] Emergency Department Summary 12/03/22 MR#: [id number] Acct: [id number] Name: FRANCIA GAMA Rep #:[id number] : 1960 62 From: Bruno Wiley MD [...] pain over the distal left small finger. [facility] Medical History Acute frontal sinusitis, unspecified Fatigue [...] her hand surgeon, Dr. Taco hairston at [facility]. I will try to get a copy [...] Signed: Tj Keith MD at 19:52 EST Reading Location ID and State: [address] [place] [address] , Service support , Procedures Upper Extremity Splints Upper Extremity [...] 20 mg PO DAILY Primary Care Provider: Van Cheung Referrals: Van Cheung MD [Primary Care Provider] - Hermann España MD [Non-Staff] - 1 Week Disposition Disposition: Home, Self Care What to do if you have Problems For any increased pain, shortness of breath, bleeding, nausea or vomiting, chestpain, or any unexpected problems, contact your Primary Care Provider. Call [facility] ([phone]) or report to the closest Emergency Room. Call 911 if necessary. 12/03/22 6316 <Electronically signed by Bruno Wiley MD> Cosigner Signature (if applicable): CC: Dr. Van Cheung MD ~ Signed [facility] Work Phone: 1(724) 764-597805-27-2022 History of Present illness Narrative* Paul Murcia, - 04/02/2022 11:30 AM EDT Images from the original note were not included. Paul Murcia DO [facility] General Orthopedics - Orthopedic Spine Surgeon [address] [facility] [address] [address] [place] [address] Phone: [phone] ([phone]) FAX: [phone] SPINE SURGERY OUTPATIENT CONSULT SERVICE DATE: 04/02/2022 Last Office Visit: 09/30/[address] 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 Paul Murcia DO [facility] NoteHNO ID: [id number] Author: Connor Cho PA-C Service: ? Author Type: Physician Credit Collector Type: Progress Notes Filed: 11/24/2021 3:07 PM [...] improve, but then started last night with CHISHOLM, chills, diarrhea. She has had 2 positive COVID exposures since she was last tested-daughter and grandson. Denies fever, SOB, wheezing. Patient vaccinated for COVID, due for booster. PAST MEDICAL HISTORY Diagnosis Date - Acute deep vein thrombosis (DVT) of popliteal vein of left lower extremity (HCC) 06/2020 Ish x 3 months off now. After a [...] with the plan. . Connor Cho [facility]C [facility] History of Present illness Narrative* Angelika Shaffer - 03/16/2021 1:55 PM EDT brant [facility] Miscellaneous Notes* Telephone Encounter - Amy Tavarez - 03/03/2021 2:41 PM EDT Patient called regarding her EGD LVM I return her call and LEFT A VOICEMAI [facility] History of Present illness Narrative* Steven Jurado, GARO - 03/03/2021 10:58 AM EDT Gastric Emptying [...] re taking. This includes vitamins, herbs, and lxvd-wut-hqevvwo medicines. Certain medicines may need to be [...] provider about these risks before the test. [id number] [employer]. [address] [place] [address]. All rights reserved. This information is not [...] hiatal hernia. She denies a history of [place], CVA, diabetes, cancer or other medical issues. Social Hx: former smoker who quit in 2011 with no relapses; she drinks 6 beers per week; she uses recreational marijuana (one bowel per day); she denies use of other drugs. She works at [employer]. She lives with her daughter Maria L (works at [employer]) PSHx: lumbar laminectomy (L4/5), lap CCx, [...] which included preparing to see the patient, pgcq-uj-jpbq patient care, completing clinical documentation, obtaining and/or [...] 03, 2021 TIME: 10:19 AM PAGER/CONTACT #: [phone] [facility] Instructions* Patient Instructions* Mitra Saavedra MD - [...] If you do not have a responsible taxicab driver (family member or friend) withyou to take you home, your exam cannot be done with sedation and will be cancelled. Please bring a list of all of your current medications, including any Qnzg-nuu-Quloctq medications with you. Medications If you take [...] your exam. 3 10/2019 [facility] Diagnosis Blood in stool- Primary Paraesophageal hernia Diaphragmatic hernia without mention of obstruction or gangrene Gastroesophageal reflux disease, unspecified whether esophagitis present Blood in stool Paraesophageal hernia Diaphragmatic hernia without mention of obstruction or gangrene Gastroesophageal reflux disease, unspecified whether esophagitis present documented in this encounter [facility] note* Diagnosis Paraesophageal hernia- Primary Diaphragmatic hernia [...] esophagitis present documented in this encounter [facility] note* Diagnosis Spondylolisthesis of lumbar region- Primary Acquired spondylolisthesis Blood in stool Paraesophageal hernia Diaphragmatic hernia without mention of obstruction or gangrene Gastroesophageal reflux disease, unspecified whether esophagitis present documented in this encounter [facility] note* Diagnosis Spondylolisthesis of lumbar region- Primary Acquired spondylolisthesis Blood in stool Paraesophageal hernia Diaphragmatic hernia without mention of obstruction or gangrene Gastroesophageal reflux disease, unspecified whether esophagitis present documented in this encounter [facility] noteNo assessment information availableWWayne Hospital Work Phone: Evaluation note* Diagnosis Left leg pain- Primary Pain in limb documented in this encounter [facility] note* Diagnosis Spondylolisthesis, lumbar region documented in this encounter [facility] note* Diagnosis Gastroesophageal reflux disease, unspecified whether esophagitis present- Primary Paraesophageal hernia Diaphragmatic hernia without mention of obstruction or gangrene Hypertension, unspecified type Screening for colon cancer Special screening for malignant neoplasms, colon Class 1 obesity with serious comorbidity and body mass index (BMI) of 31.0 to 31.9 in adult, unspecified obesity type documented in this encounter [facility] note* Diagnosis Screening for colon cancer- Primary Special screening for malignant neoplasms, colon Paraesophageal hernia Diaphragmatic hernia without mention of obstruction or gangrene Hypertension, unspecified type documented in this encounter [facility] note* Diagnosis Gastroesophageal reflux disease, unspecified whether esophagitis present Paraesophageal hernia Diaphragmatic hernia without mention of obstruction or gangrene Hypertension, unspecified type documented in this encounter [facility] note* Diagnosis Screening for colon cancer Special screening for malignant neoplasms, colon Paraesophageal hernia Diaphragmatic hernia without mention of obstruction or gangrene Hypertension, unspecified type documented in this encounter [facility] note* Diagnosis Gastroesophageal reflux disease, unspecified whether esophagitis present documented in this encounter [facility] note* Diagnosis Gastroesophageal reflux disease without [...] 30.0-30.9, adult documented in this encounter [facility] note* Diagnosis Gastroesophageal reflux disease without [...] 30.0-30.9, adult documented in this encounter [facility] note* Diagnosis Gastroesophageal reflux disease without [...] 30.0-30.9, adult documented in this encounter [facility] note* Diagnosis Paraesophageal hernia- Primary Diaphragmatic hernia without mention of obstruction or gangrene Preop examination Preoperative examination, unspecified Hypertension, unspecified type AARON (obstructive sleep apnea) Obstructive sleep apnea (adult) (pediatric) Gastroesophageal reflux disease without esophagitis Esophageal reflux S/P repair of paraesophageal hernia- Primary Other postprocedural status documented in this encounter [facility] for referral (narrative)* Diagnostic Procedure Only (Routine) - Closed Specialty Diagnoses / Procedures Referred By Contac t Referred To Contact XR IMAGING Diagnoses Spondylolisthesis, lumbar region Procedures XR LUMBAR LIMITED 2V AP/LAT X-RAY L-S SPINE AP/LATERAL Vj Sandhu MD [address] [place] [address] Xr Imaging Referral ID Status Reason Start Date Expiration Date V isits Requested Visits Authorized [id number] Closed Auto-Generate d Referral 03/29/2022 10/29/2022 1 1 [facility] for referral (narrative)* Outpatient Procedure (Routine) - New Request Specialty Diagnoses / Procedures Referred By Zhang t Referred To Contact [facility] Diagnoses Gastroesophageal reflux disease, unspecified whether esophagitis present Procedures EGD DIAGNOSTIC EGD DIAGNOSTIC ESOPHAGOGASTRODUODENOSC OPY TRANSORAL DIAGNOSTIC Mitra Saavedra MD [address] [address] [facility] [address] [place] [address] Referral ID Status Reason Start Date Expiration Date Visits Requested Visits Authorized [id number] New Request Auto-Generat ed Referral 08/02/2024 08/02/2025 1 1 * Outpatient Procedure (Routine) - New Request Specialty Diagnoses / Procedures Referred By Zhang fried Referred To [facility] Diagnoses Screening for colon cancer Procedures COLONOSCOPY DIAGNOSTIC COLONOSCOPY FLX DX W/COLLJ SPEC WHEN PFRMD Mitra Saavedra MD [address] [place] [address] [facility] [address] [place] [address] Referral ID Status Reason Start Date Expiration Date Visits Requested Visits Authorized [id number] New Request Auto-Generat ed Referral 08/02/2024 08/02/2025 1 1 * Outpatient Procedure (Routine) - New Request Specialty Diagnoses / Procedures Referred By Zhang Referred To [facility] Diagnoses Paraesophageal hernia Procedures MANOMETRY ESOPHAGEAL ESOPHAGEAL MOTILITY STUDY W/INTERP&RPT Mitra Saavedra MD [address] [address] [facility] [address] [place] [address] Referral ID Status Reason Start Date Expiration Date Visits Requested Visits Authorized [id number] New Request Auto-Generat ed Referral 08/02/2024 08/02/2025 1 1 * Diagnostic Procedure Only (Routine) - New Request Specialty Diagnoses / Procedures Referred By [facility] Referred To Contact XR IMAGING Diagnoses Gastroesophageal reflux disease, unspecified whether esophagitis present Procedures XR UPPER GI ROUTINE DOUBLE CONTRAST/AIR RADIOLOGIC EXAM PENDING SALE TO [facility] GI TRC DOUBLE CONTRAST STUDY Mitra Saavedra MD [address] [place] [address] [place] [address] Referral ID Status Reason Start Date Expiration Date Visits Requested Visits Authorized [id number] New Request Auto-Generat ed Referral 08/02/2024 09/01/2025 1 1 [facility] for referral (narrative)* Outpatient Procedure (Routine) - Authorized Specialty Diagnoses / Procedures Referred By [facility] Referred To Contact [facility] Diagnoses Screening for colon cancer Procedures COLONOSCOPY SCREENING COLONOSCOPY FLX DX W/COLLJ SPEC WHEN PFRMD Steven Peoples MD 1 [facility] [address] [place] [address] [facility] [place] [address] [place] [id number] Referral ID Status Reason Start Date Expiration Date Visits Requested Visits Authorized [id number] Authorized Auto-Generat ed Referral 08/20/2025 1 1 [facility] for referral (narrative)* Diagnostic Procedure Only (Routine) - Closed Specialty Diagnoses / Procedures Referred By [facility] Referred To Contact XR IMAGING Diagnoses Gastroesophageal reflux disease, unspecified whether esophagitis present Procedures XR UPPER GI ROUTINE DOUBLE CONTRAST/AIR RADIOLOGIC EXAM PENDING SALE TO [facility] GI TRC DOUBLE CONTRAST STUDY Mitra Saavedra MD [address] [facility] [address] [place] [address] [place] [address] Referral ID Status Reason Start Date Expiration Date V isits Requested Visits Authorized [id number] Closed Auto-Generate d Referral 08/02/2024 09/01/2025 1 1 [facility] for referral (narrative)* Outpatient Procedure (Routine) - Closed Specialty Diagnoses / Procedures Referred By Zhang Referred To Contact [facility] Diagnoses Gastroesophageal reflux disease, unspecified whether esophagitis present Procedures EGD DIAGNOSTIC EGD DIAGNOSTIC ESOPHAGOGASTRODUODENOSC OPY TRANSORAL DIAGNOSTIC Mitra Saavedra MD [address] [address] [facility] [place] [address] [place] [address] Referral ID Status Reason Start Date Expiration Date V isits Requested Visits Authorized [id number] Closed Auto-Generate d Referral 08/02/2024 08/02/2025 1 1 [facility] for referral (narrative)* Outpatient Procedure (Routine) - New Request Specialty Diagnoses / Procedures Referred By Zhang fried Referred To [facility] Diagnoses Gastroesophageal reflux disease without esophagitis Paraesophageal hernia Procedures ECG COMPLETE ECG ROUTINE ECG W/LEAST 12 LDS W/I&R Mitra Saavedra MD [address] [place] [address] [facility] [place] [address] [place] [address] Referral ID Status Reason Start Date Expiration Date Visits Requested Visits Authorized [id number] New Request Auto-Generat ed Referral 12/06/2024 12/06/2025 1 1 * Transition of Care (Routine) - Authorized Specialty Diagnoses / Procedures Referred By Zhang Referred To Contact Diagnoses Gastroesophageal reflux disease without esophagitis Paraesophageal hernia Procedures CONSULT TO PRE-SURGICAL TESTING (AG) Mitra Saavedra MD [address] [address] Referral ID Status Reason Start Date Expiration Date Visits Requested Visits Authorized [id number] Authorized PCP Requested Referral 12/06/2024 03/06/2025 1 1 [facility] for referral (narrative)No reason for referral information availableWWayne Hospital Work Phone: [facility] N[facility]* Diagnostic Procedure Only (Routine) - Closed Specialty Diagnoses / Procedures Referred By Contac t Referred To Contact XR IMAGING Diagnoses Spondylolisthesis, lumbar region Procedures XR LUMBAR LIMITED 2V AP/LAT X-RAY L-S SPINE AP/LATERAL Vj Sandhu MD [address] [place] [address] Xr Imaging Referral ID Status Reason Start Date Expiration Date V isits Requested Visits Authorized [id number] Closed Auto-Generate d Referral 03/29/2022 10/29/2022 1 1 [facility] for visit Narrative* Diagnostic Procedure Only (Routine) - Closed Specialty Diagnoses / Procedures Referred By Contac t Referred To Contact XR IMAGING Diagnoses Gastroesophageal reflux disease, unspecified whether esophagitis present Procedures XR UPPER GI ROUTINE DOUBLE CONTRAST/AIR RADIOLOGIC EXAM UPR GI TRC DOUBLE CONTRAST STUDY Mitra Saavedra MD 1 [facility] [address] [place] [address] [place] [address] Referral ID Status Reason Start Date Expiration Date V isits Requested Visits Authorized [id number] Closed Auto-Generate d Referral 08/02/2024 09/01/2025 1 1 [facility] for visit Narrative* Outpatient Procedure (Routine) - Closed Specialty Diagnoses / Procedures [facility] By [facility] [facility] Diagnoses Screening for colon cancer Procedures COLONOSCOPY SCREENING COLONOSCOPY FLX DX W/COLLJ SPEC WHEN PFRMD Steven Pepoles MD 1 [facility] [address] [place] [address] [facility] [place] [address] [place] [address] Referral ID Status Reason Start Date Expiration Date V isits Requested Visits Authorized [id number] Closed Auto-Generate d Referral 09/28/2024 08/20/2025 1 1 [facility] for visit Narrative* Outpatient Procedure (Routine) - Closed Specialty Diagnoses / Procedures [facility] Diagnoses Gastroesophageal reflux disease, unspecified whether esophagitis present Procedures EGD DIAGNOSTIC EGD DIAGNOSTIC ESOPHAGOGASTRODUODENOSC OPY TRANSORAL DIAGNOSTIC Mitra Saavedra MD [address] [address] [facility] [address] [place] [address] Referral ID Status Reason Start Date Expiration Date V isits Requested Visits Authorized [id number] Closed Auto-Generate d Referral 08/02/2024 08/02/2025 1 1 [facility] Summary Purpose Family History Relationship Condition Age at Onset Recorded Date/T christine Not Specified Diabetes mellitus Unknown Hypertension Unknown Advance Directives Advance Directive Response Recorded Date/ Time Living Will No November 24 5:02pm Power of Chemical Research Worker No November 24, 2020 5:02pm Documents on File Type Date Recorded Patient Train Gateman Expl anation Advance Directive(s) 06/25/2021 11:44 AM Advance Directive(s) 05/07/2021 6:25 AM Advance Directive(s) 04/10/2021 8:03 AM Advance Directive Response Recorded Date/ Time Living Will No December 03 8:51pm Power of Chemical Research Worker No December 03, 2022 8:51pm Advance Directive Response Recorded Date/ Time Living Will No December 25, 025 2:24pm Do you have a Healthcare Power of Chemical Research Worker? No December 25, 2024 2:24pm Date Activated Date Inactivated Comments 04/02/2025 3:09 PM 04/04/2025 9:06 PM Question Answer Comments Full Code Order Discussed With: Patient Advance Directive Response Recorded Date/ Time Do you have a Healthcare Power of Chemical Research Worker? No May 01, 2025 1:13am Assessments Diagnosis Radiculopathy of lumbar region- Primary [...] spondylolisthesis Instructions * Patient Instructions* Alejandrina Rodriguez (Shreyas) - 09/24/2020 10:02 AM EST PROCEDURE DISCHARGE [...] you have any emergent concerns, please call [phone] or go to your local emergency room. [...] Age: [age] year old Sex: female MRN/E# [id number] Last Office Visit: 07/04/2020 Chief Complaint: Patient [...] on the outcome of her second injection. jV Sandhu MD This note was partially generated using [employer] voice recognition system, and there may be [...] Age: [age] year old Sex: female MRN/E# [id number] Last Office Visit: Visit date not found [...] MD This note was partially generated using [employer] recognition system, and there may be some incorrect words, spellings, and punctuation that were not noted in checking the note before saving. documented in this encounter* Vj Sandhu - 02/10/2021 11:15 AM EDT NEUROSURGERY FOLLOW UP OFFICE NOTE Vj Sandhu MD Date of visit: February 10, 2021 Patient Name: Ms.Alicia Gama Date of : 1960 Current Age: [age] year old Sex: female MRN/E# [id number] Last Office Visit: Visit date not found [...] MD This note was partially generated using [employer] voice recognition system, and there may be [...] 1 dose, Tue09/24/20 at 1030 Given by [facility] 09/24/2020 1:34 PM EST 10 mg iohexol 900 mg IV injection (OMNIPAQUE 300) 900 mg (3 mL), OTHER, ONCE, 1 dose, Tue09/24/20 at 1030 Given by [facility] 09/24/2020 1:35 PM EST 900 mg lidocaine (PF) 20 mg/mL (2 %) 200 mg injection (XYLOCAINE) 200 mg (10 mL), OTHER, ONCE, 1 dose, Tue09/24/20 at 1030 Given by [facility] 09/24/2020 1:32 PM EST 200 mg lidocaine (PF) 5 mg/mL (0.5 %) 15 mg injection (XYLOCAINE) 15 mg (3 mL), OTHER, ONCE, 1 dose, Tue09/24/20 at 1030 Given by [facility] 09/24/2020 1:34 PM EST 15 mg Reason for Referral Status Reason Specialty Diagnoses / Procedures Referred By Contact Referred To Contact Open Auto-Generated Referral MR IMAGING Diagnoses Lumbar spondylosis Procedures MRI LUMBAR SPINE WO/W IVCON MRI, LUMBAR SPINE COMBO Vj Sandhu [address] [place] [address] Mr Imaging Status Reason Specialty Diagnoses / Procedures Referred By Contact Referred To Contact Pending Review PCP Requested Referral Diagnoses Spondylolisthesis of lumbar region Procedures ECG COMPLETE EKG WITH INTERPRETATION jV Sandhu MD [address] [place] [address] Specialty Diagnoses / Procedures Referred By Contac t Referred To Contact [facility] Diagnoses Left leg pain Procedures CONSULT TO PHYSICAL THERAPY PHYSICAL THERAPY EVALUATION HIGH COMPLEX 45 MINS Paul Murcia, DO [address] [facility] [address] [place] [address] [facility] [place] [address] [place] [address] Referral ID Status Reason Start Date Expiration Date Visits Requested Visits Authorized [id number] Pending Review Auto-Generat ed Referral 04/02/2022 04/02/2023 1 1 Specialty Diagnoses / Procedures Referred By Contac t Referred To Contact Diagnoses Gastroesophageal reflux disease without esophagitis Paraesophageal hernia Hypertension, unspecified type Body mass index 30.0-30.9, adult Procedures CONSULT TO PRE-SURGICAL TESTING (AG) Mitra Saavedra MD 1 [facility] [address] [place] [address] Referral ID Status Reason Start Date Expiration Date Visits Requested Visits Authorized [id number] Authorized PCP Requested Referral 12/06/2024 03/06/2025 1 1 Chief Complaint and Reason for Visit Chief Complaint EORDER Chief Complaint EORDER HIP PAIN Chief Complaint FALL Chief Complaint Admit Date RASH December 25, 2024 11:43am Chief Complaint Admit Date L HAND INJURY May 01, 2025 1:10 am Additional Source Comments INFORMATION SOURCE (unrecogn ized section and content) DATE CREATED AUTHOR 01/21/2019 [facility] DATE CREATED AUTHOR AUTHOR'S ORGANIZ ATION 01/26/2019 [facility] ical Center DATE CREATED AUTHOR AUTHOR'S ORGANIZ ATION 07/02/2021 [facility] DATE CREATED AUTHOR AUTHOR'S ORGANIZ ATION 01/26/2022 [facility] DATE CREATED AUTHOR AUTHOR'S ORGANIZ ATION 04/30/2025 [facility] Center DATE CREATED AUTHOR AUTHOR'S ORGANIZ ATION 05/26/2025 [facility] Source Comments (unrecognize d section and content) In the event this informatio n is protected by the Federal Confidentiality of Alcohol and Drug Abuse Patient Records regulations: The Federal rules restrict any use of the information to criminally investigate or prosecute any alcohol or drug abuse patient.[facility] the event this information is protected by the Federal Confidentiality of Alcohol and Drug Abuse Patient Records regulations: The Federal rules restrict any use of the information to criminally investigate or prosecute any alcohol or drug abuse patient.[facility] Center[facility] the event this information is protected by the Federal Confidentiality of Alcohol and Drug Abuse Patient Records regulations: The Federal rules restrict any use of the information to criminally investigate or prosecute any alcohol or drug abuse patient.[facility] Center[facility] the event this information is protected by the Federal Confidentiality of Alcohol and Drug Abuse Patient Records regulations: The Federal rules restrict any use of the information to criminally investigate or prosecute any alcohol or drug abuse patient.[facility] Center[facility] the event this information is protected by the Federal Confidentiality of Alcohol and Drug Abuse Patient Records regulations: The Federal rules restrict any use of the information to criminally investigate or prosecute any alcohol or drug abuse patient.[facility] CenterIn the event this information is protected by the Federal Confidentiality of Alcohol and Drug Abuse Patient Records regulations: The Federal rules restrict any use of the information to criminally investigate or prosecute any alcohol or drug abuse patient.[facility] CenterIn the event this information is protected by the Federal Confidentiality of Alcohol and Drug Abuse Patient Records regulations: The Federal rules restrict any use of the information to criminally investigate or prosecute any alcohol or drug abuse patient.[facility] Center[facility] the event this information is protected by the Federal Confidentiality of Alcohol and Drug Abuse Patient Records regulations: The Federal rules restrict any use of the information to criminally investigate or prosecute any alcohol or drug abuse patient.[facility] Center[facility] the event this information is protected by the Federal Confidentiality of Alcohol and Drug Abuse Patient Records regulations: The Federal rules restrict any use of the information to criminally investigate or prosecute any alcohol or drug abuse patient.[facility] CenterIn the event this information is protected by the Federal Confidentiality of Alcohol and Drug Abuse Patient Records regulations: The Federal rules restrict any use of the information to criminally investigate or prosecute any alcohol or drug abuse patient.[facility] CenterIn the event this information is protected by the Federal Confidentiality of Alcohol and Drug Abuse Patient Records regulations: The Federal rules restrict any use of the information to criminally investigate or prosecute any alcohol or drug abuse patient.[facility] Center[facility] the event this information is protected by the Federal Confidentiality of Alcohol and Drug Abuse Patient Records regulations: The Federal rules restrict any use of the information to criminally investigate or prosecute any alcohol or drug abuse patient.[facility] Center[facility] the event this information is protected by the Federal Confidentiality of Alcohol and Drug Abuse Patient Records regulations: The Federal rules restrict any use of the information to criminally investigate or prosecute any alcohol or drug abuse patient.[facility] CenterIn the event this information is protected by the Federal Confidentiality of Alcohol and Drug Abuse Patient Records regulations: The Federal rules restrict any use of the information to criminally investigate or prosecute any alcohol or drug abuse patient.[facility] CenterIn the event this information is protected by the Federal Confidentiality of Alcohol and Drug Abuse Patient Records regulations: The Federal rules restrict any use of the information to criminally investigate or prosecute any alcohol or drug abuse patient.[facility] CenterIn the event this information is protected by the Federal Confidentiality of Alcohol and Drug Abuse Patient Records regulations: The Federal rules restrict any use of the information to criminally investigate or prosecute any alcohol or drug abuse patient.[facility] CenterIn the event this information is protected by the Federal Confidentiality of Alcohol and Drug Abuse Patient Records regulations: The Federal rules restrict any use of the information to criminally investigate or prosecute any alcohol or drug abuse patient.[facility] CenterIn the event this information is protected by the Federal Confidentiality of Alcohol and Drug Abuse Patient Records regulations: The Federal rules restrict any use of the information to criminally investigate or prosecute any alcohol or drug abuse patient.[facility] CenterIn the event this information is protected by the Federal Confidentiality of Alcohol and Drug Abuse Patient Records regulations: The Federal rules restrict any use of the information to criminally investigate or prosecute any alcohol or drug abuse patient.[facility] CenterIn the event this information is protected by the Federal Confidentiality of Alcohol and Drug Abuse Patient Records regulations: The Federal rules restrict any use of the information to criminally investigate or prosecute any alcohol or drug abuse patient.[facility] CenterIn the event this information is protected by the Federal Confidentiality of Alcohol and Drug Abuse Patient Records regulations: The Federal rules restrict any use of the information to criminally investigate or prosecute any alcohol or drug abuse patient.[facility] CenterIn the event this information is protected by the Federal Confidentiality of Alcohol and Drug Abuse Patient Records regulations: The Federal rules restrict any use of the information to criminally investigate or prosecute any alcohol or drug abuse patient.[facility] the event this information is protected by the Federal Confidentiality of Alcohol and Drug Abuse Patient Records regulations: The Federal rules restrict any use of the information to criminally investigate or prosecute any alcohol or drug abuse patient.[facility] CenterIn the event this information is protected by the Federal Confidentiality of Alcohol and Drug Abuse Patient Records regulations: The Federal rules restrict any use of the information to criminally investigate or prosecute any alcohol or drug abuse patient.[facility] CenterIn the event this information is protected by the Federal Confidentiality of Alcohol and Drug Abuse Patient Records regulations: The Federal rules restrict any use of the information to criminally investigate or prosecute any alcohol or drug abuse patient.[facility] CenterIn the event this information is protected by the Federal Confidentiality of Alcohol and Drug Abuse Patient Records regulations: The Federal rules restrict any use of the information to criminally investigate or prosecute any alcohol or drug abuse patient.[facility] CenterIn the event this information is protected by the Federal Confidentiality of Alcohol and Drug Abuse Patient Records regulations: The Federal rules restrict any use of the information to criminally investigate or prosecute any alcohol or drug abuse patient.[facility] CenterIn the event this information is protected by the Federal Confidentiality of Alcohol and Drug Abuse Patient Records regulations: The Federal rules restrict any use of the information to criminally investigate or prosecute any alcohol or drug abuse patient.[facility] CenterIn the event this information is protected by the Federal Confidentiality of Alcohol and Drug Abuse Patient Records regulations: The Federal rules restrict any use of the information to criminally investigate or prosecute any alcohol or drug abuse patient.[facility] CenterIn the event this information is protected by the Federal Confidentiality of Alcohol and Drug Abuse Patient Records regulations: The Federal rules restrict any use of the information to criminally investigate or prosecute any alcohol or drug abuse patient.[facility] CenterIn the event this information is protected by the Federal Confidentiality of Alcohol and Drug Abuse Patient Records regulations: The Federal rules restrict any use of the information to criminally investigate or prosecute any alcohol or drug abuse patient.[facility] CenterIn the event this information is protected by the Federal Confidentiality of Alcohol and Drug Abuse Patient Records regulations: The Federal rules restrict any use of the information to criminally investigate or prosecute any alcohol or drug abuse patient.[facility] CenterIn the event this information is protected by the Federal Confidentiality of Alcohol and Drug Abuse Patient Records regulations: The Federal rules restrict any use of the information to criminally investigate or prosecute any alcohol or drug abuse patient.[facility] CenterIn the event this information is protected by the Federal Confidentiality of Alcohol and Drug Abuse Patient Records regulations: The Federal rules restrict any use of the information to criminally investigate or prosecute any alcohol or drug abuse patient.[facility] CenterIn the event this information is protected by the Federal Confidentiality of Alcohol and Drug Abuse Patient Records regulations: The Federal rules restrict any use of the information to criminally investigate or prosecute any alcohol or drug abuse patient.[facility] CenterIn the event this information is protected by the Federal Confidentiality of Alcohol and Drug Abuse Patient Records regulations: The Federal rules restrict any use of the information to criminally investigate or prosecute any alcohol or drug abuse patient.[facility] CenterIn the event this information is protected by the Federal Confidentiality of Alcohol and Drug Abuse Patient Records regulations: The Federal rules restrict any use of the information to criminally investigate or prosecute any alcohol or drug abuse patient.[facility] Reason for Visit (unrecogniz ed section and [...] LS MULTI EPIDURAL INJ TRANSFORMINAL Yulisa Key (Marketing Rep Media Theorist And Author Of), LEAD MAINTENANCE TECHNICIAN [address] [facility] [address] [place] [address] Johnnie López [address] [facility] [place] [address] Reason Comments Established Patient Reason Comments Anticoagulation Reason Comments Established Patient Status Reason Specialty Diagnoses / Procedures Referred By Contact Referred To Contact Closed Neurosurgery / NEUROSURGERY Diagnoses discuss surgery Procedures EST PATIENT VISIT LEVEL 4 EST PATIENT Julisa Cheung [address] [place] [address] Vj Sandhu [address] [place] [address] Reason Comments Consult hiatal hernia Reason Comments Appointment Reason Comments Established Patient Reason Comments Appointment EGD/MANO Specialty Diagnoses / Procedures Referred By Contac t Referred To Contact Diagnoses Paraesophageal hernia Hypertension, unspecified type Paraesophageal hernia [K44.9] Hypertension, unspecified type [I10] Procedures ESOPHAGEAL MOTILITY STUDY W/INTERP&RPT ESOPHAGEAL MANOMETRY Ak Endo [address] [place] [address] Referral ID Status Reason Start Date Expiration Date Visits Re quested Visits Authorized [id number] 1 1 Reason Comments Established Patient Reason Comments Follow Up HBC follow up Reason Comments Hospital Follow Up Reason Comments Post Op Reason Comments Follow Up Reason Comments Follow Up After office appoint ment to discuss diet advancement Reason Comments Patient Question Needs RTW letter Telephone Encounter - Vidal Malave - 07/29/2020 2:33 PM EDTTelephone Encounter - Yulisa Key (Tamiko Robles)RONEN - 07/29/2020 12:52 PM EDTTelephone Encounter - [...] proceed. The patient was brought to the [facility] procedure room and positioned in the [...] discharged home in stable condition with a taxicab driver. Time Out: 1020 Confirmed patient name, date of , procedure site, laterality, and allergies Procedure Start: 1020 Procedure End: 102 documented in this encounter Rey Ahn Lpn, LPN - 09/24/2020 10:34 AM Jacinta Almeida) - 09/24/2020 10:23 AM Alejandrina Darnell (Shreyas) [...] tablePatient s procedure was performed in an [facility] Procedure room. Pause completed at each [...] Are you currently on an antibiotic: no Coremaking Supervisor's Name: Paula Rodriguez documented in this encounter Goals (unrecognized section and content) Goals may be documented in a n alternate sectionGoals may be documented in an alternate sectionGoals may be documented in an alternate sectionGoals may be documented in an alternate sectionGoals may be documented in an alternate sectionGoals may be documented in an alternate section Care Teams (unrecognized sec tion and content) Manager Floor Relationship Specialty Start Date End Date Julisa Cheung MD [address] [place], [place] [id number] PCP - General 07/19/08 Manager Floor Relationship Specialty Start Date End Date Julisa Cheung MD [address] [place], [place] [id number] PCP - General 07/19/08 Team Status: Active [...] Van Cheung MD Primary Care Provider, Atte neing Provider Active Manager Floor Relationship Specialty Start Date End Date Julisa Cheung MD [address] [place], [place] [address] PCP - General 07/19/08 Manager Floor Relationship Specialty Start Date End Date Julisa Cheung MD [address] [place], [place] [id number] PCP - General 07/19/08 Manager Floor Relationship Specialty Start Date End Date Julisa Cheung MD [address] [place] [address] PCP - General 07/19/08 Manager Floor Relationship Specialty Start Date End Date Julisa Cheung MD [address] [place] [address] PCP - General 07/19/08 Manager Floor Relationship Specialty Start Date End Date Julisa Cheung MD [address] [place] [address] PCP - General 07/19/08 Manager Floor Relationship Specialty Start Date End Date Julisa Cheung MD [address] [place] [address] PCP - General 07/19/08 Manager Floor Relationship Specialty Start Date End Date Julisa Cheung MD [address] [place] [address] PCP - General 07/19/08 Manager Floor Relationship Specialty Start Date End Date Julisa Cheung MD [address] [place] [address] PCP - General 07/19/08 Manager Floor Relationship Specialty Start Date End Date Julisa Cheung MD [address] [place] [address] PCP - General 07/19/08 Manager Floor Relationship Specialty Start Date End Date Julisa Cheung MD [address] [place] [address] PCP - General 07/19/08 Manager Floor Relationship Specialty Start Date End Date Julisa Cheung MD [address] [place], [place] [id number] PCP - General 07/19/08 Manager Floor Relationship Specialty Start Date End Date Julisa Cheung MD [address] [place], [place] [id number] PCP - General 07/19/08 Team Status: Active [...] February 22, 2025 End: February 22, 2025 Manager Floor Relationship Specialty Start Date End Date Julisa Cheung MD [address] [place], [place] [address] PCP - General 07/19/08 Manager Floor Relationship Specialty Start Date End Date Julisa Cheung MD [address] [place], [place] [id number] PCP - General 07/19/08 Manager Floor Relationship Specialty Start Date End Date Julisa Cheung MD [address] [place] [address] PCP - General 07/19/08 Manager Floor Relationship Specialty Start Date End Date Julisa Cheung MD [address] [place], [place] [address] PCP - General 07/19/08 Manager Floor Relationship Specialty Start Date End Date Julias Cheung MD [address] [place] [address] PCP - General 07/19/08 Team Status: Inactive Member Role Status Dates Dr. Julisa Cheung MD Primary Care Provider Acti ve Start: May 01, 2025 End: May 01, 2025 Dr. Barney Dockery DO Emergency Provider Active Start: May 01, 2025 End: May 01, 2025 Manager Floor Relationship Specialty Start Date End Date Julisa Cheung MD [address] [place], [place] [id number] PCP - General 07/19/08 PRN Active and Recently Administ [...] BE BASED ON THE PRIMARY CLINICAL RECORDS. [facility] [employer] [facility]. provides no warranty or guarantee of the accuracy or completeness of information in this document.
== END 2025-05-28 23:01 | disposition short-term general hospital (02) ==
PROVIDERS: Emergency Provider Emergency Medicine; PCP Family Medicine; Visit Provider Emergency Medicine
DX: S22.43XA Multiple fractures of ribs, bilateral, initial encounter for closed fracture (principal); S27.321A Contusion of lung, unilateral, initial encounter; S49.91XA Unspecified injury of right shoulder and upper arm, initial encounter; S59.901A Unspecified injury of right elbow, initial encounter; W11.XXXA Fall on and from ladder, initial encounter; Y92.015 Private garage of single-family (private) house as the place of occurrence of the external cause; I10 Essential (primary) hypertension; Z79.899 Other long term (current) drug therapy; Z87.891 Personal history of nicotine dependence
CPT/HCPCS: 70450; 71260; 72125; 73030; 73060; 73080; 74177; 80048; 85025; 96374; 96375; 96376; 99285; Q9967; A4216; J2405

== ENCOUNTER → 2025-08-28 | Outpatient (CLI) | payer BC, SELFPAY ==
--- NOTE | 2025-08-28 16:52 | RAD_ITS ---
PROCEDURE: SHOULDER MIN 2 VIEWS 08/28/2025 REASON FOR EXAM: R SHOULDER PAIN. FALL. TECHNIQUE: Procedure Code: RADSH Modality: DX Procedure: SHOULDER MIN 2 VIEWS Laterality: Right COMPARISON: None RAD/Shoulder min 2 Views IMPRESSION: No acute fracture or dislocations. Minimal degenerative changes of the right sh oulder. No acute soft tissue abnormalities. No radiographic foreign body. Reading Location: [id number]
== END | disposition home or self-care (01) ==
LOC: MTRAD 16:50
PROVIDERS: PCP Family Medicine; Referring Provider Family Medicine; Visit Provider Family Medicine
DX: M25.511 Pain in right shoulder (principal); W19.XXXA Unspecified fall, initial encounter
CPT/HCPCS: 73030